=== PATIENT | male | born 1945 | race Caucasian/White ===

== ENCOUNTER 2023-03-13 08:12 | Inpatient (IN) | payer OTHER, SELFPAY ==
--- NOTE | 2023-03-13 | ECG_ITS ---
Test Reason : DYSPHGIA Blood Pressure : / mmHG Vent. Rate : 086 BPM Atrial Rate : 086 BPM P-R Int : 158 ms QRS Dur : 092 ms QT Int : 370 ms P-R-T Axes : 014 -15 025 degrees QTc Int : 442 ms Normal sinus rhythm Minimal voltage criteria for LVH, may be normal variant ( R in aVL ) Borderline ECG No previous ECGs available Referred By: Sebastián Sylvester Electronically Signed By:Huy Robledo
--- NOTE | ~2023-03-13 | FL_ITS ---
EXAMINATION: FL BARIUM SWALLOW CLINICAL INFORMATION: 2 get stuck in upper esophagus COMPARISON: Previous CT of the abdomen and pelvis from 2010 TECHNIQUE: Barium swallow examination is performed using fluoroscopic evaluation in addition to multiple fluoroscopic spot views. The patient is imaged both upright and prone and using both thick and thin sulfate along with effervescent granules. Barium tablet was also administered. Scorekeeper chest x-ray was performed. Fluoroscopy time: 1.6 minutes DAP: 20 Gycm2 Images: 58 FINDINGS: Chest: No abnormal air collection or foreign body seen. The cardiac and mediastinal contours are normal. The lungs are clear. No pleural effusion or pneumothorax. There are degenerative changes of the spine. The swallowing mechanism is normal. No aspiration or penetration is seen. The esophagus is dilated with abnormal peristalsis and stasis of oral contrast. There is a stricture of the distal thoracic esophagus/GE junction. Underlying mass cannot be excluded and correlation with endoscopy is recommended. There is stasis of the barium tablet. No gastroesophageal reflux is observed. FL/FL barium swallow IMPRESSION: Abnormal dilated esophagus and severe stricture of the distal esophagus/GE junction. Correlation with endoscopy to exclude mass recommended.
--- NOTE | ~2023-03-13 | CT_ITS ---
EXAMINATION: CT CHEST WITH CONTRAST CT ABDOMEN AND PELVIS WITH CONTRAST CLINICAL INFORMATION: Staging esophageal carcinoma. COMPARISON: CT abdomen and pelvis 11/05/2009. Barium swallow 03/13/2023. TECHNIQUE: Multidetector volumetric imaging was performed from the thoracic inlet through the pubic symphysis following administration of 85 mL of Omnipaque 350. Oral contrast media was administered. Sagittal and coronal reformatted images were obtained on the technologist's workstation. This CT examination was performed using dose optimization techniques as appropriate, variously including the following: *Automated exposure control *Adjustment of mA and/or kV according to patient size (this includes techniques or standardized protocols for targeted exams where dose is matched to indication/reason for exam; i.e. extremities or head) *Use of iterative reconstruction technique DLP: 740 mGy-cm FINDINGS: CHEST: Lung: A few tiny micronodules are seen in the lungs, for example: 2 mm right upper lobe (8:142) 2 mm right upper lobe (8:151) 3 mm right perifissural lymph node (8:244) 2 mm left upper lobe ground-glass nodule (8:272) 2 mm calcified granuloma right middle lobe (8:349) The lungs are otherwise clear without focal opacity or nodule. No evidence of pulmonary metastatic disease. Mediastinum: The esophagus is filled with fluid. There is thickening present at the GE junction consistent with a stricture seen on the barium swallow from 03/13/2023. The thyroid appears normal. No mediastinal or hilar lymphadenopathy is seen. Heart size normal. No significant coronary calcification is detected. Pericardium/Pleura: No significant effusion. No pleural mass or thickening. Chest Wall/Axilla: Unremarkable. ABDOMEN/PELVIS: Peritoneal Space: No significant free air or free fluid identified. Liver, Gallbladder, Biliary Tree: The liver is normal in size and shape but demonstrates decreased attenuation consistent with hepatic steatosis. No focal hepatic lesion or biliary ductal dilatation is present. The gallbladder contains some tiny layering gallstones but is otherwise unremarkable with no evidence of gallbladder wall thickening, or obvious pericholecystic inflammatory changes. Pancreas: Unremarkable. Spleen: Spleen is enlarged measuring 15 cm in greatest axial dimension. Adrenal Glands: Unremarkable. Kidneys and Ureters: The kidneys are normal in size, shape, and attenuation. There is a benign 3.5 cm Bosniak class 1 right renal cyst present along with a similar 2.4 cm cyst lower pole of the left kidney. These need no additional imaging or followup. No solid renal masses are seen. No hydronephrosis, hydroureter, or calculi seen. No perinephric stranding. Bladder: Unremarkable. Gastrointestinal Tract: There is a stricture seen at the GE junction and some thickening of the gastric fundus as seen on prior imaging. No bowel obstruction is seen. Dense residual barium is present throughout the colon from the patient's recent barium swallow producing marked artifact. Abdominal Wall: No significant hernia is appreciated. Lymph Nodes: There is new retroperitoneal lymphadenopathy present when compared to the prior 2009 study. The largest node is a left para-aortic measuring 3.3 x 2.5 x 3.3 cm (3:37) and aortocaval lymph node present measuring 1.2 cm in greatest short axis dimension. Evaluation is suboptimal secondary to the dense barium. Vascular: The aorta appears normal. The IVC appears unremarkable. PELVIC VISCERA: Unremarkable. OSSEUS STRUCTURES: Moderate degenerative changes are noted throughout the spine. No bony destructive lesions are seen. Small sclerotic lesion in the T5 vertebral body of questionable significance. No definite bony pathologic lesions are seen. CT/CT abdomen pelvis w IV con IMPRESSION: 1. No convincing evidence of metastatic disease in the chest. Tiny lung nodules should be followed up with oncology protocol 2. Stricture at the GE junction and thickening of the gastric fundus consistent with patient's esophageal carcinoma. 3. New retroperitoneal lymphadenopathy suspicious for metastatic disease. 4. Incidental note made of hepatic steatosis, splenomegaly, cholelithiasis and degenerative changes in the spine. Fleischner guidelines were followed.
[2023-03-13 08:17] VITALS: BP 115/82; PULSE 91; RESP 19; TEMP 36.6; O2SAT 99; BMI 29.1
--- NOTE | 2023-03-13 08:43 | ED.GENADULT ---
HPI - General Adult General Chief complaint: General Medical Stated complaint: diff swallowing weak Time Seen by Provider: 03/13/23 08:35 Source: patient Mode of arrival: ambulatory Limitations: no limitations History of Present Illness HPI narrative: Patient has had for one month difficulty swallowing. Patient with a GI appointment in 2 weeks but patient feels he cant wait. Patient with 18 lbs weight loss in one month. Patient comes in today but he cant take it anymore Onset (ago): week(s) Related Data Home Medications Medication Instructions Recorded Confirmed allopurinol 200 mg tablet 200 mg PO DAILY 03/13/23 03/13/23 metoprolol tartrate 25 mg tablet 12.5 mg PO BID 03/13/23 03/13/23 simvastatin 40 mg tablet 40 mg PO BEDTIME 03/13/23 03/13/23 Allergies Allergy/AdvReac Type Severity Reaction Status Date / Time No Known Allergies Allergy Verified 03/13/23 08:17 Review of Systems Review of Systems: Yes all other systems are reviewed and are negative Gastrointestinal: Comments: unable to swallow, 18lbs weight loss PMFSH Past Medical History Medical History History of high cholesterol Hx of essential hypertension Hx of fracture of finger Hx of gout Surgical History History of tonsillectomy and adenoidectomy Hx of arthroscopic knee surgery Hx of colonoscopy Hx of facial fracture repair Hx of foot surgery Hx of shoulder surgery Social History Social History Household Members: Spouse Housing: House Do you presently have visiting nurse or other home services: No Alcohol intake: never Patient Tobacco Use Status: Never used Tobacco service: Yes Current occupational status: retired Physical Exam ED Vital Signs: Vital Signs - 24 hr 03/13/23 08:17 03/13/23 08:45 Temperature 98 F 97.9 F Pulse Rate 91 90 Respiratory Rate 19 18 Blood Pressure 115/82 141/83 H Pulse Oximetry 99 99 Oxygen Delivery Method Room Air Room Air BMI result Body Mass Index 29.1 Const General: healthy appearing Nutritional Appearance: average body habitus Orientation/consciousness: oriented to person and patient oriented x3 Limitations: no limitations HENMT Head: Yes normal to inspection Ears: external ears normal General nose exam: Normal external nose present Mouth: Normal oral and palatal mucosa present and oropharynx normal Throat: Yes posterior oropharynx normal Eyes General: appearance normal, both eyes and all related structures Neck Neck: Yes normal visual inspection Chest Chest palpation & inspection: normal inspection of the chest Resp Auscultation: clear to auscultation bilaterally Cardio Jugular venous distension: no JVD Rate: regular rate Rhythm: regular rhythm Heart sounds: S1 normal heart sound present and S2 normal heart sound present GI Inspection: Yes normal to inspection Palpation (GI): Soft to palpation, nontender and No hepatosplenomegaly present Auscultation: normal bowel sounds General: Yes no CVA tenderness Back/Spine/Pelvis Back: no CVA tenderness Skin General skin exam: no rashes or lesions noted Neuro General: oriented to person and patient oriented x3 Cranial nerves: Yes CN's II-XII intact bilaterally Motor exam (neuro): 5/5 motor strength present throughout Extrem General: Yes normal to inspection Psych Appearance: grossly normal Course Reevaluation(s) Reevaluation #1: Barium study showed esophageal dilation and stricture vs mass at the LE junction. Discussed with Dr. Rea who wants the patient admitted Time: 13:57 Consultations Consultation #1: Dr. Rea GI Time: 13:57 Medications Administered Generic Name Dose Route Start Last Admin Trade Name Kurtq PRN Reason Stop Dose Admin Allopurinol 200 mg 03/15/23 09:00 03/15/23 08:43 Allopurinol 100 Mg Tablet PO 200 mg DAILY TYE Administration Atorvastatin Calcium 20 mg 03/14/23 21:00 03/14/23 21:10 Atorvastatin Calcium 20 Mg Tablet PO 20 mg BEDTIME TYE Administration Enoxaparin Sodium 40 mg 03/13/23 15:00 03/14/23 15:33 Enoxaparin Sodium 40 Mg/0.4 Ml Syringe SUBCUT 40 mg Q24H TYE Administration Metoprolol Tartrate 12.5 mg 03/14/23 09:00 03/15/23 08:43 Metoprolol Tartrate 12.5 Mg Halftab PO 12.5 mg BID TYE Administration Protocol Pantoprazole Sodium 40 mg 03/13/23 16:30 03/15/23 06:02 Pantoprazole Sodium 40 Mg/10 Ml Vial IVPUSH 40 mg BID@0630,1630 TYE Administration Sodium Chloride 3 ml 03/13/23 16:00 03/15/23 09:41 0.9 % Sodium Chloride Flush 3 Ml Syringe IVFLUSH Not Given QSHIFT TYE Discontinued Medications Generic Name Dose Route Start Last Admin Trade Name Tegan PRN Reason Stop Dose Admin Barium Sulfate 900 ml 03/15/23 16:43 03/15/23 16:44 Barium Sulfate Oral (Mocha) 450 Ml Oral.Susp PO 03/15/23 16:44 900 ml ONCE ONE Administration Sodium Chloride 1,000 mls @ 125 mls/hr 03/13/23 12:30 03/13/23 15:45 Ns IVCONT Infused .Q8H TYE Infusion Lactated Ringer's 1,000 mls @ 125 mls/hr 03/13/23 14:45 03/15/23 11:04 Lr IVCONT 0 mls/hr .Q8H TYE Infusion Iohexol 100 ml 03/15/23 16:44 03/15/23 16:44 Iohexol 350 Mg/Ml 100 Ml Infus..Btl IV 03/15/23 16:45 85 ml ONCE ONE Administration Medical Decision Making Differential Diagnosis Differential Diagnoses: The differential diagnosis associated with the presentation includes (Esophageal stricture, esophageal mass, esophageal reflux) Admission/Observation Consideration of admission/observation: Escalation of care including admission/observation considered (Upon arrival this 77 yo male with inability to swallow and 18 lbs weight loss was considered for admission) Consult Healthcare Provider Management of the patient was discussed with: Hospitalist Lab Data MDM Lab Attestation statement: I reviewed the patient's lab results. 03/13/23 12:43 03/13/23 12:43 Labs: Lab Results 03/13/23 03/13/23 Range/Units 12:43 12:43 WBC 5.4 (4.8-10.8) X10*3/uL RBC 4.02 L (4.60-5.80) X10*6/uL Hgb 9.7 L (14.0-18.0) g/dl Hct 31.5 L (42.0-52.0) % MCV 78.4 L (80.0-98.0) fL MCH 24.1 L (27.0-33.0) pg MCHC 30.8 L (31.0-36.0) g/dl RDW 14.8 (11.0-16.0) % Plt Count 274 (160-400) X10*3/uL MPV 11.2 (9.4-12.4) fL Immature Gran % (Auto) 0.6 H (0.0-0.4) % Neut % (Auto) 74.3 H (45-73) % Lymph % (Auto) 15.3 L (20-40) % [place] % (Auto) 8.3 (2-11) % Eos % (Auto) 1.5 (0-4) % Baso % (Auto) 0.0 (0-2) % Lymph # (Auto) 0.8 L (1.2-4.9) X10*3/uL [place] # (Auto) 0.5 (0.1-1.2) X10*3/uL Eos # (Auto) 0.1 (0.0-0.4) X10*3/uL Baso # (Auto) 0.0 (0.0-0.2) X10*3/uL Abs Immat Gran (auto) 0.03 (0.00-0.03) X10*3/uL Absolute Neuts (auto) 4.0 (2.0-8.3) x10*3/uL Absolute Nucleated RBC 0.000 (0.0-0.012) X10*3/uL Nucleated RBC % (auto) 0.0 (0.0-0.2) /100WBC Sodium 136 (135-145) mmol/L Potassium 4.6 (3.3-5.1) mmol/L Chloride 102 (96-108) mmol/L Carbon Dioxide 26 (22-29) mmol/L Anion Gap 13 (12-20) BUN 12 (9-16) mg/dL Creatinine 0.90 (0.5-1.4) mg/dL Estim Creat Clear Calc 84.4 Estimated GFR > 60 Random Glucose 115 (60-115) mg/dL Calcium 9.1 (8.4-10.2) mg/dL Total Bilirubin 0.4 (0.0-1.0) mg/dL AST 21 (5-37) U/L ALT 15 (0-40) U/L Alkaline Phosphatase 122 H (39-117) U/L Total Protein 6.5 (6.5-8.0) g/dL Albumin 3.7 (3.5-5.0) g/dL Radiology Impression Discussion of test interpretation with radiology: I have reviewed the radiologist's reading. (Barium swallow) Tests considered The following testing was considered but not selected: I considered a CT but based on the barium swallow, scoping is the next step in this workup Discharge Plan Discharge Clinical Impression: Esophageal stricture Patient Disposition: Admitted As Inpatient Interventions: Admission Worksheet (ED) Last Done: 03/13/23 16:31 Discharge Date/Time: 03/13/23 16:32
[2023-03-13 08:45] VITALS: BP 141/83; PULSE 90; RESP 18; TEMP 36.6; O2SAT 99
[2023-03-13 12:46] LABS: MANUAL DIFF FLAG NO
[2023-03-13 12:57] LABS: Eosinophils Absolute Auto 0.1 X10*3/uL (0.0-0.4); Eosinophils Percent Auto 1.5 % (0-4); Hematocrit 31.5 % (42.0-52.0); Hemoglobin 9.7 g/dl (14.0-18.0); Imm Gran Abs Auto 0.03 X10*3/uL (0.00-0.03); Imm Gran Pct Auto 0.6 % (0.0-0.4); Lymphocytes Absolute Auto 0.8 X10*3/uL (1.2-4.9); Lymphocytes Percent Auto 15.3 % (20-40); Mean Corpuscular HGB Conc 30.8 g/dl (31.0-36.0); Mean Corpuscular Hemoglobin 24.1 pg (27.0-33.0); Mean Corpuscular Volume 78.4 fL (80.0-98.0); Mean Platelet Volume 11.2 fL (9.4-12.4); Monocytes Absolute Auto 0.5 X10*3/uL (0.1-1.2); Monocytes Percent Auto 8.3 % (2-11); Neutrophils Percent Auto 74.3 % (45-73); Platelet Count 274 X10*3/uL (160-400); Red Blood Count 4.02 X10*6/uL (4.60-5.80); Red Cell Distribution Width 14.8 % (11.0-16.0); White Blood Count 5.4 X10*3/uL (4.8-10.8)
[2023-03-13 13:08] LABS: Alanine Aminotransferase 15 U/L (0-40); Albumin Level 3.7 g/dL (3.5-5.0); Alkaline Phosphatase 122 U/L (39-117); Anion Gap 13 (12-20); Aspartate Amino Transferase 21 U/L (5-37); Bilirubin Total 0.4 mg/dL (0.0-1.0); Blood Urea Nitrogen 12 mg/dL (9-16); Calcium 9.1 mg/dL (8.4-10.2); Carbon Dioxide 26 mmol/L (22-29); Chloride 102 mmol/L (96-108); Creatinine Clr Calc Pharmacy 84.4; Estimated Glomerular Filt Rate > 60; Glucose Random 115 mg/dL (60-115); Potassium 4.6 mmol/L (3.3-5.1); Sodium 136 mmol/L (135-145); Total Protein 6.5 g/dL (6.5-8.0)
[2023-03-13 13:55] VITALS: BP 121/76; PULSE 80; RESP 16; TEMP 36.6; O2SAT 98
[2023-03-13] MEDS: 0.9 % Sodium Chloride 1,000 ML 125 ML IVCONT (14:03)
--- NOTE | 2023-03-13 14:39 | PM.IMHP ---
History of Present Illness Date of Service: 03/13/23 Chief Complaint: difficulty swallowing 77-year-old male with no history of tobacco or alcohol use presents to the ER with approximately 1 month of worsening dysphagia. [facility] his issue and labs showed anemia. [facility] of the chest which by patient's recount is negative. Has an appointment with GI that is 2 weeks away; presented today because he is weak and cannot wait. Barium swallow done in the emergency room demonstrated an abnormal dilated esophagus and severe stricture of the distal esophagus/GE junction. Review of Systems Review of Systems: Denies chest pain Denies shortness of breath Denies nausea vomiting diarrhea Denies chills PMFSH Social History Smoked in Last 30 Days: No Use of substances other than those prescribed or required for medical reasons: No Advance Directives: No Advance Directives Information Provided: Yes Meds Allergies Allergy/AdvReac Type Severity Reaction Status Date / Time No Known Allergies Allergy Verified 03/13/23 08:17 Active Medications: Current Medications Enoxaparin Sodium (Enoxaparin Sodium 40 Mg/0.4 Ml Syringe) 40 mg SUBCUT Q24H TYE Lactated Ringer's (Lr) 1,000 mls @ 125 mls/hr IVCONT .Q8H TYE Pantoprazole Sodium (Pantoprazole Sodium 40 Mg/10 Ml Vial) 40 mg IVPUSH BID ONE Stop: 03/13/23 14:37 Sodium Chloride (0.9 % Sodium Chloride Flush 3 Ml Syringe) 3 ml IVFLUSH QSHIFT TYE Physical Exam Vital Signs and Narrative: Vital Signs: Last Vital Signs Temp 97.8 F 03/13/23 13:55 Pulse 80 03/13/23 13:55 Resp 16 03/13/23 13:55 BP 121/76 03/13/23 13:55 Pulse Ox 98 03/13/23 13:55 O2 Del Method Room Air 03/13/23 13:55 BMI result Body Mass Index 29.1 Const: Other: Awake alert no acute distress Resp: Other: Clear to auscultation bilaterally no rales rhonchi or wheezes Cardio: Other: No S4; positive S1-S2; no S3 murmurs rubs or gallops GI: Other: Soft nontender nondistended normoactive bowel sounds Neuro: Other: Cranial nerves 2-12 grossly intact as tested. Motor is 5/5 all extremities. Sensation intact. Cognition appropriate Extrem: Other: No edema bilaterally Results Labs 03/13/23 12:43 03/13/23 12:43 Labs: Laboratory Results - last 24 hr 03/13/23 03/13/23 12:43 12:43 MCV 78.4 L MCH 24.1 L MCHC 30.8 L RDW 14.8 Plt Count 274 MPV 11.2 Immature Gran % (Auto) 0.6 H Neut % (Auto) 74.3 H Lymph % (Auto) 15.3 L [place] % (Auto) 8.3 Eos % (Auto) 1.5 Baso % (Auto) 0.0 Lymph # (Auto) 0.8 L [place] # (Auto) 0.5 Eos # (Auto) 0.1 Baso # (Auto) 0.0 Abs Immat Gran (auto) 0.03 Absolute Neuts (auto) 4.0 Absolute Nucleated RBC 0.000 Nucleated RBC % (auto) 0.0 Anion Gap 13 Estim Creat Clear Calc 84.4 Estimated GFR > 60 Random Glucose 115 Calcium 9.1 Total Bilirubin 0.4 AST 21 ALT 15 Alkaline Phosphatase 122 H Total Protein 6.5 Albumin 3.7 Imaging Radiologist's Impressions: Impressions Barium Swallow X-Ray 03/13/23 10:51 IMPRESSION: Abnormal dilated esophagus and severe stricture of the distal esophagus/GE junction. Correlation with endoscopy to exclude mass recommended. Assessment and Plan (1) Esophageal stricture: Status: Acute Plan 77-year-old male with 1 month of progressive dysphagia. CT scan done 2 weeks ago negative for acute process. Scheduled for GI in 2-3 weeks however due to dysphagia is become severely weakened could not wait. In the Emergency Room barium swallow consistent with distal esophageal stricture 1. Distal esophageal stricture -GI notified. EGD pending 03/14/2023 -full liquid diet; NPO after midnight -PPI IV q.12 hours -supplemental IV fluids overnight Full code Lovenox Patient will require 2 midnights inpatient stay going forward for full evaluation of esophageal stricture with weight loss. This cannot be achieved a lesser acute setting Time Spent With Patient Time: Total time managing care of this patient today ____ minutes. Quality Stroke Does the patient have a stroke diagnosis?: No VTE Prior VTE?: No VTE Risk Level:: Medical - moderate - high VTE Device Contraindication: Treatment Not Indicated VTE Drug Contraindication: N/A - Med Ordered
--- NOTE | 2023-03-13 15:32 | PC.NURSE ---
pt son called and spoke with this RN. updated on pt plan of care per father's permission. left cell phone number: Uday Shi: [phone]
[2023-03-13] MEDS: Enoxaparin Sodium 40 MG/0.4 ML SYRINGE SUBCUT (15:38)
[2023-03-13 15:43] VITALS: BP 126/79; PULSE 89; RESP 16; TEMP 36.7; O2SAT 97
[2023-03-13] MEDS: Lactated Ringers 1,000 ML 125 ML IVCONT ×2 (15:43→23:36)
[2023-03-13 16:00] VITALS: BP 141/87; PULSE 95; RESP 18; TEMP 36; O2SAT 98
[2023-03-13] MEDS: Pantoprazole Sodium 40 MG/10 ML VIAL IVPUSH (16:31)
--- NOTE | 2023-03-13 18:14 | PHA.MEDREC ---
Pharmacy Consult ? Medication Reconciliation Pharmacy has completed the medication reconciliation. spoke with patient. Bryn historian when it comes to his medications. [facility] and called his to confirm meds from the bottles at home. Patient reports taking his AM meds today.
[2023-03-13 19:30] VITALS: BP 109/72; PULSE 94; RESP 18; TEMP 36.3; O2SAT 97
[2023-03-14 03:26] VITALS: BP 131/74; PULSE 81; RESP 18; TEMP 36.2; O2SAT 98
[2023-03-14] MEDS: Pantoprazole Sodium 40 MG/10 ML VIAL IVPUSH ×2 (05:37→15:33)
[2023-03-14 05:56] LABS: MANUAL DIFF FLAG NO
[2023-03-14 06:20] LABS: Alanine Aminotransferase 13 U/L (0-40); Albumin Level 3.3 g/dL (3.5-5.0); Alkaline Phosphatase 103 U/L (39-117); Anion Gap 14 (12-20); Aspartate Amino Transferase 19 U/L (5-37); Bilirubin Total 0.4 mg/dL (0.0-1.0); Blood Urea Nitrogen 10 mg/dL (9-16); Calcium 8.7 mg/dL (8.4-10.2); Carbon Dioxide 24 mmol/L (22-29); Chloride 105 mmol/L (96-108); Creatinine Clr Calc Pharmacy 91.5; Estimated Glomerular Filt Rate > 60; Glucose Fasting 99 mg/dL (60-99); Potassium 4.3 mmol/L (3.3-5.1); Sodium 139 mmol/L (135-145); Total Protein 5.6 g/dL (6.5-8.0)
[2023-03-14 06:37] LABS: Basophils Percent Auto 0.2 % (0-2); Eosinophils Absolute Auto 0.2 X10*3/uL (0.0-0.4); Eosinophils Percent Auto 3.2 % (0-4); Hematocrit 28.2 % (42.0-52.0); Hemoglobin 8.8 g/dl (14.0-18.0); Imm Gran Abs Auto 0.02 X10*3/uL (0.00-0.03); Imm Gran Pct Auto 0.4 % (0.0-0.4); Lymphocytes Absolute Auto 1.1 X10*3/uL (1.2-4.9); Lymphocytes Percent Auto 19.9 % (20-40); Mean Corpuscular HGB Conc 31.2 g/dl (31.0-36.0); Mean Corpuscular Hemoglobin 24.7 pg (27.0-33.0); Mean Corpuscular Volume 79.2 fL (80.0-98.0); Monocytes Absolute Auto 0.5 X10*3/uL (0.1-1.2); Monocytes Percent Auto 9.4 % (2-11); Neutrophils Absolute Auto 3.6 x10*3/uL (2.0-8.3); Neutrophils Percent Auto 66.9 % (45-73); Platelet Count 254 X10*3/uL (160-400); Red Blood Count 3.56 X10*6/uL (4.60-5.80); Red Cell Distribution Width 14.8 % (11.0-16.0); White Blood Count 5.3 X10*3/uL (4.8-10.8)
[2023-03-14] MEDS: Lactated Ringers 1,000 ML 125 ML IVCONT ×2 (07:26→21:11)
[2023-03-14 08:00] VITALS: BP 134/68; PULSE 95; RESP 18; TEMP 36.7; O2SAT 98
--- NOTE | 2023-03-14 08:37 | P.CNGI_ITS ---
History of Present Illness Data of Consult Service Date: 03/14/23 Requesting physician: Sebastián Sylvester Primary Care Provider: Vincent Peguero HPI Reason for consult: stricture 77 yr old m with HTN and HLP being seen for assessment for abn imaging Patient had been c/o difficulty swallowing solids but managing liquids and mashed foods for last 1 month. He denies chest pain, SOB, diarrhea, nausea or vomiting. HE said he was fine prior to this, never had any issues with GERD, not taking chronic nsaids. He has noted 17# weight loss over 1 month or so. Apperently had a CT chest recently at the [facility] which was negative. HE had a ba swallow done in the ED which revealed dilated esophagus and stricture at GEJ. LABS with anemia 9g/dl Review of Systems Review of Systems: Constitutional : + Weight loss, No Fever, No Chills ENT/Mouth : No sore throat, No Rhinorrhea Eyes: No Swelling, No Redness Cardiovascular : No Chest Pain, No SOB, No Edema Respiratory : No Cough, No Sputum, No Wheezing Gastrointestinal : see HPI Genitourinary : NO Dysuria, No Urinary Frequency, No Hematuria, No Urgency Musculoskeletal : No joint pain, No Myalgias, No Joint Swelling Skin : No Skin Lesions, No rash Neuro : No Weakness, No Numbness, No Dizziness, No Headache Psych : No Anxiety/Panic, No Depression Heme/Lymph: No Bruising, No Lymphadenopathy Endocrine : No Polyuria, No Polydipsia All other systems reviewed and are negative. [facility] Past Medical History Cognitive capacity: HTN HLP Family History Pertinent family history: no Fh of esophgeal cancer Social History Social History (Updated 03/14/23 @ 09:28 by Yunier Rea MD) Household Members: Spouse Housing: House Do you presently have visiting nurse or other home services: No Alcohol intake: never Patient Tobacco Use Status: Never used Tobacco Meds Allergies Allergy/AdvReac Type Severity Reaction Status Date / Time No Known Allergies Allergy Verified 03/13/23 08:17 Active Medications: Current Medications Enoxaparin Sodium (Enoxaparin Sodium 40 Mg/0.4 Ml Syringe) 40 mg SUBCUT Q24H [facility] Last Admin: 03/13/23 15:38 Dose: 40 mg Lactated Ringer's (Lr) 1,000 mls @ 125 mls/hr IVCONT .Q8H [facility]YE Last Admin: 03/14/23 07:26 Dose: 125 mls/hr Pantoprazole Sodium (Pantoprazole Sodium 40 Mg/10 Ml Vial) 40 mg IVPUSH BID@0630,1630 [facility] Last Admin: 03/14/23 05:37 Dose: 40 mg Sodium Chloride (0.9 % Sodium Chloride Flush 3 Ml Syringe) 3 ml IVFLUSH QSHIFT [facility] Last Admin: 03/14/23 07:27 Dose: Not Given Home Medications Medication Instructions Recorded Confirmed Last Taken Type allopurinol 200 mg tablet 200 mg PO DAILY 03/13/23 03/13/23 03/13/23 History metoprolol tartrate 25 mg tablet 12.5 mg PO BID 03/13/23 03/13/23 03/13/23 History simvastatin 40 mg tablet 40 mg PO BEDTIME 03/13/23 03/13/23 Unknown History Physical Exam 2 Vital Signs: Vital Signs: Last Vital Signs Temp 98.0 F 03/14/23 08:00 Pulse 95 03/14/23 08:00 Resp 18 03/14/23 08:00 BP 134/68 03/14/23 08:00 Pulse Ox 98 03/14/23 08:00 O2 Del Method Room Air 03/14/23 08:00 BMI result Body Mass Index 29.1 EXAM: GENERAL: The patient is well developed and nontoxic. Slightly pale VITAL SIGNS:see workflow HEENT: Nonicteric sclerae, PERRLA, EOMI. Oropharynx clear. Moist mucous membranes. Conjunctivae appear pale. No thyroid mass. CHEST: Chest wall is nontender. HEART: Regular rate and rhythm without murmurs. LUNGS: Clear to auscultation bilaterally. ABDOMEN: Soft, positive bowel sounds, nontender, no organomegaly.no flank tenderness SKIN: No rash, no excessive bruising, petechiae, or purpura. NEUROLOGIC: Cranial nerves II-XII intact without motor/sensory deficit. psych-nml affect Results Labs 03/14/23 05:17 03/14/23 05:17 Labs: Short CBC 03/13/23 03/14/23 Range/Units 12:43 05:17 WBC 5.4 5.3 (4.8-10.8) X10*3/uL Hgb 9.7 L 8.8 L (14.0-18.0) g/dl Hct 31.5 L 28.2 L (42.0-52.0) % Plt Count 274 254 (160-400) X10*3/uL BMP 03/13/23 03/14/23 12:43 05:17 Sodium 136 139 Potassium 4.6 4.3 Chloride 102 105 Carbon Dioxide 26 24 BUN 12 10 Creatinine 0.90 0.83 Calcium 9.1 8.7 Liver Function 03/13/23 03/14/23 Range/Units 12:43 05:17 Total Bilirubin 0.4 0.4 (0.0-1.0) mg/dL AST 21 19 (5-37) U/L ALT 15 13 (0-40) U/L Alkaline Phosphatase 122 H 103 (39-117) U/L Albumin 3.7 3.3 L (3.5-5.0) g/dL Imaging barium swallow: My impression: dilated esophagus and distal stricture Assessment and Plan (1) Esophageal stricture: Status: Acute (2) Anemia: Status: Acute Plan 1/ Weight loss with dysphagia to solids and abn imaging with dilated esophagus and stricture ddX: malignant stricture, benign stricture, achalasia, 2/ Anemia, maybe related to 1/ above PLAN: 1/ EGD tomorrow for assessment, 2/ mechanical soft diet for the meantime, NPO midnight Time Spent With Patient Time: Total time managing care of this patient today ____ minutes. Procedures Date of Service Date of Service: 03/14/23
[2023-03-14] MEDS: allopurinoL 100 MG TABLET 200 MG PO (10:04)
[2023-03-14] MEDS: Metoprolol Tartrate 12.5 MG HALFTAB PO ×2 (10:04→21:10)
--- NOTE | 2023-03-14 11:56 | HO.PM.IMPN ---
Subjective Subjective Date of Service: 03/14/23 Interval History: No acute issues overnight. Seen by Gastroenterology. . . EGD with possible dilation in a.m. started mechanical ground diet Review of Systems Denies chest pain Denies shortness of breath Denies nausea vomiting diarrhea Denies chills Physical Exam Vital Signs: Vital Signs: Last Vital Signs Temp 98.0 F 03/14/23 08:00 Pulse 95 03/14/23 08:00 Resp 18 03/14/23 08:00 BP 134/68 03/14/23 08:00 Pulse Ox 98 03/14/23 08:00 O2 Del Method Room Air 03/14/23 08:00 BMI result Body Mass Index 29.1 Const: Other: Awake alert no acute distress Resp: Other: Clear to auscultation bilaterally no rales rhonchi or wheezes Cardio: Other: No S4; positive S1-S2; no S3 murmurs rubs or gallops GI: Other: Soft nontender nondistended normoactive bowel sounds Neuro: Other: Cranial nerves 2-12 grossly intact as tested. Motor is 5/5 all extremities. Sensation intact. Cognition appropriate Extrem: Other: No edema bilaterally Objective Data Active Medications Allopurinol (Allopurinol 100 Mg Tablet) 200 mg PO DAILY [facility] Last Admin: 03/14/23 10:04 Dose: 200 mg Documented By: HAO Comments: admin per Atorvastatin Calcium (Atorvastatin Calcium 20 Mg Tablet) 20 mg PO BEDTIME [facility] Enoxaparin Sodium (Enoxaparin Sodium 40 Mg/0.4 Ml Syringe) 40 mg SUBCUT Q24H [facility] Last Admin: 03/13/23 15:38 Dose: 40 mg Documented By: YARY Lactated Ringer's (Lr) 1,000 mls @ 125 mls/hr IVCONT .Q8H [facility] Last Admin: 03/14/23 07:26 Dose: 125 mls/hr Documented By: HAO Metoprolol Tartrate (Metoprolol Tartrate 12.5 Mg Halftab) 12.5 mg PO BID [facility]; Protocol Last Admin: 03/14/23 10:04 Dose: 12.5 mg Documented By: HAO Pantoprazole Sodium (Pantoprazole Sodium 40 Mg/10 Ml Vial) 40 mg IVPUSH BID@0630,1630 [facility] Last Admin: 03/14/23 05:37 Dose: 40 mg Documented By: MAXINE Sodium Chloride (0.9 % Sodium Chloride Flush 3 Ml Syringe) 3 ml IVFLUSH QSHIFT [facility] Last Admin: 03/14/23 07:27 Dose: Not Given Documented By: HAO Non-Admin Reason: IV Running Labs 03/14/23 05:17 03/14/23 05:17 Labs: Laboratory Results - last 24 hr 03/13/23 03/13/23 03/14/23 12:43 12:43 05:17 MCV 78.4 L 79.2 L MCH 24.1 L 24.7 L MCHC 30.8 L 31.2 RDW 14.8 14.8 Plt Count 274 254 MPV 11.2 12.0 Immature Gran % (Auto) 0.6 H 0.4 Neut % (Auto) 74.3 H 66.9 Lymph % (Auto) 15.3 L 19.9 L [place] % (Auto) 8.3 9.4 Eos % (Auto) 1.5 3.2 Baso % (Auto) 0.0 0.2 Lymph # (Auto) 0.8 L 1.1 L [place] # (Auto) 0.5 0.5 Eos # (Auto) 0.1 0.2 Baso # (Auto) 0.0 0.0 Abs Immat Gran (auto) 0.03 0.02 Absolute Neuts (auto) 4.0 3.6 Absolute Nucleated RBC 0.000 0.000 Nucleated RBC % (auto) 0.0 0.0 Anion Gap 13 Estim Creat Clear Calc 84.4 Estimated GFR > 60 Random Glucose 115 Fasting Glucose Calcium 9.1 Total Bilirubin 0.4 AST 21 ALT 15 Alkaline Phosphatase 122 H Total Protein 6.5 Albumin 3.7 03/14/23 05:17 MCV MCH MCHC RDW Plt Count MPV Immature Gran % (Auto) Neut % (Auto) Lymph % (Auto) [place] % (Auto) Eos % (Auto) Baso % (Auto) Lymph # (Auto) [place] # (Auto) Eos # (Auto) Baso # (Auto) Abs Immat Gran (auto) Absolute Neuts (auto) Absolute Nucleated RBC Nucleated RBC % (auto) Anion Gap 14 Estim Creat Clear Calc 91.5 Estimated GFR > 60 Random Glucose Fasting Glucose 99 Calcium 8.7 Total Bilirubin 0.4 AST 19 ALT 13 Alkaline Phosphatase 103 Total Protein 5.6 L Albumin 3.3 L Assessment and Plan (1) Esophageal stricture: Status: Acute Plan 77-year-old male with 1 month of progressive dysphagia. CT scan done 2 weeks ago negative for acute process. Scheduled for GI in 2-3 weeks however due to dysphagia is become severely weakened could not wait. In the Emergency Room barium swallow consistent with distal esophageal stricture 1. Distal esophageal stricture -GI notified. EGD pending 03/15/2023 -mechanical diet; NPO after midnight -PPI IV q.12 hours -supplemental IV fluids overnight Full code Lovenox Patient will require 2 midnights inpatient stay going forward for full evaluation of esophageal stricture with weight loss. This cannot be achieved a lesser acute setting Time Spent With Patient Time: Total time managing care of this patient today ____ minutes. Quality Stroke Does the patient have a stroke diagnosis?: No VTE Prior VTE?: No VTE Risk Level:: Medical - moderate - high VTE Device Contraindication: Treatment Not Indicated VTE Drug Contraindication: N/A - Med Ordered
--- NOTE | 2023-03-14 12:59 | MHC.CM.PN ---
pt lives with his had no previous services has own ride home dc plan home no servceis
[2023-03-14 15:33] VITALS: BP 132/70; PULSE 84; RESP 18; TEMP 36.2; O2SAT 95
[2023-03-14] MEDS: 0.9 % Sodium Chloride Flush 3 ML SYRINGE IVFLUSH ×2 (15:33→21:10)
[2023-03-14] MEDS: Enoxaparin Sodium 40 MG/0.4 ML SYRINGE SUBCUT (15:33)
--- NOTE | 2023-03-14 15:45 | PC.NURSE ---
ok with pause on IV fluids until HS. Pt continues to tolerate PO fluids without issue.
[2023-03-14 19:45] VITALS: BP 122/70; PULSE 85; RESP 17; TEMP 36.1; O2SAT 97
[2023-03-14] MEDS: Atorvastatin Calcium 20 MG TABLET PO (21:10)
[2023-03-15] VITALS (8 sets, daily range): BP systolic 110–142; BP diastolic 69–84; PULSE 75–85; RESP 16–20; TEMP 36.1–37.1; O2SAT 96–100
[2023-03-15] MEDS: Lactated Ringers 1,000 ML 125 ML IVCONT (04:31)
[2023-03-15] MEDS: Pantoprazole Sodium 40 MG/10 ML VIAL IVPUSH ×2 (06:02→17:42)
[2023-03-15] MEDS: Metoprolol Tartrate 12.5 MG HALFTAB PO (08:43)
[2023-03-15] MEDS: allopurinoL 100 MG TABLET 200 MG PO (08:43)
--- NOTE | 2023-03-15 11:48 | MHC.SHP ---
Pre-Procedural Eval Section A Date of Service: 03/15/23 The patient is an INPATIENT: Yes The History & Physical has been completed within 30 days and I have reviewed it.: Yes Section B Chief Complaint: Difficulty swallowing Allergies: Allergies Allergy/AdvReac Type Severity Reaction Status Date / Time No Known Allergies Allergy Verified 03/13/23 08:17 Plan Diagnosis/Plan: Unchanged I have reviewed the history and physical and performed a pertinent physical examination on my patient. No changes have occurred unless specified. Time Spent With Patient Time: Total time managing care of this patient today ____ minutes.
--- NOTE | 2023-03-15 11:48 | P.PNIM_ITS ---
Subjective Subjective Date of Service: 03/15/23 Interval History: NPO for EGD lost 17 lb unintentionally due to dysphagia no reflux Review of Systems Review of Systems: Yes all other systems are reviewed and are negative Physical Exam Vital Signs: Vital Signs: Last Vital Signs Temp 97.3 F 03/15/23 11:07 Pulse 81 03/15/23 11:07 Resp 20 03/15/23 11:07 BP 142/84 H 03/15/23 11:07 Pulse Ox 96 03/15/23 11:07 O2 Del Method Room Air 03/15/23 11:07 BMI result Body Mass Index 29.1 Gen: in no acute distress HEENT: sclera anicteric, moist mucus membranes Neck: supple Lungs: clear to auscultation bilaterally Heart: regular rate and rhythm, no murmurs Abd: soft, non-tender, non-distended Ext: no edema Skin: warm/well-perfused Neuro: alert and oriented x3, no focal findings Psych: appropriate affect Objective Data Active Medications Allopurinol (Allopurinol 100 Mg Tablet) 200 mg PO DAILY [facility] Last Admin: 03/15/23 08:43 Dose: 200 mg Documented By: SHERITA Atorvastatin Calcium (Atorvastatin Calcium 20 Mg Tablet) 20 mg PO BEDTIME [facility] Last Admin: 03/14/23 21:10 Dose: 20 mg Documented By: BELKYS Enoxaparin Sodium (Enoxaparin Sodium 40 Mg/0.4 Ml Syringe) 40 mg SUBCUT Q24H [facility] Last Admin: 03/14/23 15:33 Dose: 40 mg Documented By: HAO Lactated Ringer's (Lr) 1,000 mls @ 125 mls/hr IVCONT .Q8H [facility] Last Infusion: 03/15/23 11:04 Dose: 0 mls/hr Documented By: SHERITA Metoprolol Tartrate (Metoprolol Tartrate 12.5 Mg Halftab) 12.5 mg PO BID [facility]; Protocol Last Admin: 03/15/23 08:43 Dose: 12.5 mg Documented By: SHERITA Pantoprazole Sodium (Pantoprazole Sodium 40 Mg/10 Ml Vial) 40 mg IVPUSH BID@0630,1630 [facility] Last Admin: 03/15/23 06:02 Dose: 40 mg Documented By: SAPNA Sodium Chloride (0.9 % Sodium Chloride Flush 3 Ml Syringe) 3 ml IVFLUSH QSHIFT [facility] Last Admin: 03/15/23 09:41 Dose: Not Given Documented By: SHERITA Non-Admin Reason: IV Running Labs 03/14/23 05:17 03/14/23 05:17 Assessment and Plan (1) Esophageal stricture: Status: Acute Plan d#3 77yo M with progressive dysphagia x 1 mo with 17 lb weight loss. Upper GI showed distal esophageal stricture # esophageal stricture # dysphagia - EGD today, NPO, IV PPI # HTN - metoprolol tartrate # HLD - statin # gout - allopurinol # VTE ppx: LMWH # dispo: TBD Time Spent With Patient Time: Total time managing care of this patient today __30__ minutes. Quality Stroke Does the patient have a stroke diagnosis?: No VTE Prior VTE?: No VTE Risk Level:: Medical - moderate - high VTE Device Contraindication: Treatment Not Indicated VTE Drug Contraindication: N/A - Med Ordered
--- NOTE | 2023-03-15 11:58 | P.CONAN_ITS ---
HPI - Anesthesia Eval Consult details Narrative: 77 yo male patient for EGD PMFSH Active Problems Active Problems: All Active Problems (Updated 03/15/23 @ 11:59 by Eladia Vuong MD) Esophageal stricture (Acute) Anemia (Acute) Denies DESIRAE Dysphagia Past Medical History Medical History History of high cholesterol Hx of essential hypertension Hx of fracture of finger Hx of gout Family History Family history of problems with anesthesia: No Surgical History Surgical History History of tonsillectomy and adenoidectomy Hx of arthroscopic knee surgery Hx of colonoscopy Hx of facial fracture repair Hx of foot surgery Hx of shoulder surgery History of Problems with Anesthesia: No Social History Social History Household Members: Spouse Housing: House Do you presently have visiting nurse or other home services: No Alcohol intake: never Patient Tobacco Use Status: Never used Tobacco service: Yes Current occupational status: retired [employer] Allergies Allergy/AdvReac Type Severity Reaction Status Date / Time No Known Allergies Allergy Verified 03/13/23 08:17 Active Medications: Current Medications Allopurinol (Allopurinol 100 Mg Tablet) 200 mg PO DAILY [facility] Last Admin: 03/15/23 08:43 Dose: 200 mg Atorvastatin Calcium (Atorvastatin Calcium 20 Mg Tablet) 20 mg PO BEDTIME [facility] Last Admin: 03/14/23 21:10 Dose: 20 mg Enoxaparin Sodium (Enoxaparin Sodium 40 Mg/0.4 Ml Syringe) 40 mg SUBCUT Q24H [facility] Last Admin: 03/14/23 15:33 Dose: 40 mg Lactated Ringer's (Lr) 1,000 mls @ 125 mls/hr IVCONT .Q8H [facility] Last Infusion: 03/15/23 11:04 Dose: 0 mls/hr Metoprolol Tartrate (Metoprolol Tartrate 12.5 Mg Halftab) 12.5 mg PO BID [facility]; Protocol Last Admin: 03/15/23 08:43 Dose: 12.5 mg Pantoprazole Sodium (Pantoprazole Sodium 40 Mg/10 Ml Vial) 40 mg IVPUSH BID@0630,1630 [facility] Last Admin: 03/15/23 06:02 Dose: 40 mg Sodium Chloride (0.9 % Sodium Chloride Flush 3 Ml Syringe) 3 ml IVFLUSH QSHIFT [facility] Last Admin: 03/15/23 09:41 Dose: Not Given Home Medications Medication Instructions Recorded Confirmed Last Taken Type allopurinol 200 mg tablet 200 mg PO DAILY 03/13/23 03/13/23 03/13/23 History metoprolol tartrate 25 mg tablet 12.5 mg PO BID 03/13/23 03/13/23 03/13/23 History simvastatin 40 mg tablet 40 mg PO BEDTIME 03/13/23 03/13/23 Unknown History Exam Exam Date and Time: March 15, 2023 1158 Height,Weight and Vital Signs: Height 6 ft Weight 97.4 kg Last Vital Signs Temp 97.3 F 03/15/23 11:07 Pulse 81 03/15/23 11:07 Resp 20 03/15/23 11:07 BP 142/84 H 03/15/23 11:07 Pulse Ox 96 03/15/23 11:07 O2 Del Method Room Air 03/15/23 11:07 Pertinent Lab Results Pertinent Lab Results: Laboratory Tests 03/13/23 03/13/23 03/14/23 12:43 12:43 05:17 WBC 5.4 5.3 RBC 4.02 L 3.56 L Hgb 9.7 L 8.8 L Hct 31.5 L 28.2 L MCV 78.4 L 79.2 L MCH 24.1 L 24.7 L MCHC 30.8 L 31.2 RDW 14.8 14.8 Plt Count 274 254 MPV 11.2 12.0 Immature Gran % (Auto) 0.6 H 0.4 Neut % (Auto) 74.3 H 66.9 Lymph % (Auto) 15.3 L 19.9 L [place] % (Auto) 8.3 9.4 Eos % (Auto) 1.5 3.2 Baso % (Auto) 0.0 0.2 Lymph # (Auto) 0.8 L 1.1 L [place] # (Auto) 0.5 0.5 Eos # (Auto) 0.1 0.2 Baso # (Auto) 0.0 0.0 Abs Immat Gran (auto) 0.03 0.02 Absolute Neuts (auto) 4.0 3.6 Absolute Nucleated RBC 0.000 0.000 Nucleated RBC % (auto) 0.0 0.0 Sodium 136 Potassium 4.6 Chloride 102 Carbon Dioxide 26 Anion Gap 13 BUN 12 Creatinine 0.90 Estim Creat Clear Calc 84.4 Estimated GFR > 60 Random Glucose 115 Fasting Glucose Calcium 9.1 Total Bilirubin 0.4 AST 21 ALT 15 Alkaline Phosphatase 122 H Total Protein 6.5 Albumin 3.7 03/14/23 05:17 WBC RBC Hgb Hct MCV MCH MCHC RDW Plt Count MPV Immature Gran % (Auto) Neut % (Auto) Lymph % (Auto) [place] % (Auto) Eos % (Auto) Baso % (Auto) Lymph # (Auto) [place] # (Auto) Eos # (Auto) Baso # (Auto) Abs Immat Gran (auto) Absolute Neuts (auto) Absolute Nucleated RBC Nucleated RBC % (auto) Sodium 139 Potassium 4.3 Chloride 105 Carbon Dioxide 24 Anion Gap 14 BUN 10 Creatinine 0.83 Estim Creat Clear Calc 91.5 Estimated GFR > 60 Random Glucose Fasting Glucose 99 Calcium 8.7 Total Bilirubin 0.4 AST 19 ALT 13 Alkaline Phosphatase 103 Total Protein 5.6 L Albumin 3.3 L Airway Mallampati Class: III TM Dist: >3cm Neck ROM: Full Partial: Upper Loose/Missing/Broken Teeth: Yes (Loose tooth top left back. Patient states not very loose but is seeing dentist?next week who has recommended extraction. Aware of possibility of dislodgement) Heart: RRR Lungs: CTAB Assessment and Plan Assessment Anesthesia Assessment: Anesthesia Plan Discussed and Chart Reviewed Final Anesthetic Review Family History of Problems with Anesthesia: No History of Problems with Anesthesia: No NPO: Yes ASA Class: III Final Preanesthetic Review: No Changes in Pt Med Stat, Meds/Allgs Chart Reviewed, Consent Obtained/Reviewed and Anes Risks/Benef Reviewed Patient Risk: Intermediate Procedure Risk: Intermediate Assessment/Block/Sedation in SS: Assess/Block/Sedation-SS Anesthetic Plan Anesthetic Plan: GA and MAC: Disposition: Standard PACU
--- NOTE | 2023-03-15 12:49 | W.PM.OPN ---
Operative Note Operative Note Date of Service: 03/15/23 Narrative: Procedure Description: EGD Indication: esophgeal stricture Anesthesia: MAC FLEXIBLE TRANSORAL UPPER GASTROINTESTINAL ENDOSCOPY UPPER ENDOSCOPY Consent: Indications for the procedure and potential complications of bleeding, perforation, reaction to medications and missed diagnosis were discussed with the patient and informed consent was obtained. Instrument: Olympus GIF H 190 J mid size upper endoscope Monitoring: Vital signs and clinical assessment, continuous EKG monitoring, Pulse oximetry, Carbon Dioxide monitoring and blood pressure monitoring were done throughout the procedure. Procedure: The patient was placed in the left lateral decubitis position and pre-procedure medications were administered and a bite block was placed. The endoscope was inserted into the mouth and advanced under direct vision to the third part of duodenum. A careful inspection was made as the upper endoscope was withdrawn including a retroflexed examination of the proximal stomach; Findings and interventions are described below. Findings: Larynx:normal Esophagus: GE junction at 40 cm, diaphragm hiatus at 40 cm, irregular, friable mass extending for about 3 cm from GEJ -bx taken. Unable to pass with regular scope so ultra thin used. Stomach: Patchy gastric erythema. Grade 2 flap valve on retroflexed examination of the cardia, edema, with possible extension of mass into the cardia Duodenum: Normal bulb and descending duodenum, Intervention: Biopsies as noted above Impression/Findings: esophageal mass, stricture PLAN: cont with soft mechanical diet refer oncology and thoracic surgery CT A/P and chest with IV contrast
--- NOTE | 2023-03-15 13:17 | P.CNHO_ITS ---
Subjective - Subjective Chief complaint: Consult for: Carcinoma of the esophagus. Patient: new to practice Consult date: 03/15/23 Requesting Physician: [place] Primary Care Provider: Vincent Peguero Medical Summary: DIAGNOSIS: CARCINOMA THE ESOPHAGUS. HPI - Consult Narrative Reason for consult: Consult for: Carcinoma of the esophagus. Narrative: Fabricio Osullivan is a 77 year old gentleman consulted by Dr. Peter, on account of upper endoscopy findings of esophageal mass. He presented to the ER on 03/13, with approximately 1 month of worsening dysphagia. It was mostly to solids. Liquids go down okay. His apetite is down, he lost 17 pounds. [facility] where labs showed anemia. CT of the chest: Negative. Presented due to generalized weakness. Barium swallow done on 03/13, in the emergency room demonstrated: Abnormal dilated esophagus and severe stricture of the distal esophagus/GE junction. Correlation with endoscopy to exclude mass recommended. 03/15 upper endoscopy: Findings: Larynx:normal Esophagus: GE junction at 40 cm, diaphragm hiatus at 40 cm, irregular, friable mass extending for about 3 cm from GEJ -bx taken. Unable to pass with regular scope so ultra thin used. Stomach: Patchy gastric erythema. Grade 2 flap valve on retroflexed examination of the cardia, edema, with possible extension of mass into the cardia Duodenum: Normal bulb and descending duodenum, Intervention: Biopsies as noted above Impression/Findings: Esophageal mass, stricture. Review of Systems Review of Systems: He denies fatigue,but takes naps, no fever/chills. Low apetite, lost 17 pounds. No LERNER/Dizziness. Denies chest pain, Denies shortness of breath Denies nausea vomiting diarrhea. Denies chills/fever. No dysuria/hematuria. No jt pains,muscle pain. No skin rashes/pruritis. PMFSH: Hypercholestrolemia. HTN. Gout. PSH: S/p knee, shoulder and foot surgery. S.p adenoidectomy/tonsillectomy. Family History: No family history of cancer. 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 He is , has 3 kids. Smoked in Last 30 Days: No. He smoked a couple of packs only, at age 21. Denies alcohol. Use of substances other than those prescribed or required for medical reasons: No Advance Directives: No Advance Directives Information Provided: Yes Review of Systems - Constitutional Reports no additional constitutional complaints, Reports anorexia, Reports fat igue, Denies fever(s), Reports lack of energy, Reports malaise, Reports weight loss - Eyes Reports no additional eye complaints - ENT Reports no additional ear, nose, mouth, and throat complaints - Cardiovascular Reports no additional cardiovascular complaints - Respiratory Reports no additional respiratory complaints - Gastrointestinal Reports no additional gastrointestinal complaints - Genitourinary Genitourinary: Reports no additional male genitourinary complaints - Musculoskeletal Reports no additional musculoskeletal complaints - Integumentary/Breasts Skin/Breast: Reports no additional skin complaints - Neurologic Reports no additional neurologic complaints - Psychiatric Reports no additional psychiatric complaints - Endocrine Reports no additional endocrine complaints - Hematologic/Lymphatic Reports no additional hematologic/lymphatic complaints - Allergic/Immunologic Reports no additional allergic/immunologic complaints Oncology Screenings - ECOG Performance Status ECOG Performance Status: 1 [facility] Medical History: Medical History (Last Reviewed 03/15/23 @ 11:59 by Elaida Vuong MD) History of high cholesterol Hx of essential hypertension Hx of fracture of finger Hx of gout Functional capacity: uses cane/walker Patient : No Surgical History: Surgical History (Last Reviewed 03/15/23 @ 11:59 by Eladia Vuong MD) History of tonsillectomy and adenoidectomy Hx of arthroscopic knee surgery Hx of colonoscopy Hx of facial fracture repair Hx of foot surgery Hx of shoulder surgery Social History: Social History (Last Reviewed 03/15/23 @ 11:59 by Eladia Vuong MD) Living Situation History: Household Members: Spouse Housing: House Do you presently have visiting nurse or other home services: No Tobacco History: Patient Tobacco Use Status: Never used Tobacco Occupation Assessmet: service: Yes Current occupational status: retired Home Medications and Allergies Current Medications: Current Medications Allopurinol (Allopurinol 100 Mg Tablet) 200 mg PO DAILY [facility] Last Admin: 03/15/23 08:43 Dose: 200 mg Atorvastatin Calcium (Atorvastatin Calcium 20 Mg Tablet) 20 mg PO BEDTIME [facility] Last Admin: 03/14/23 21:10 Dose: 20 mg Enoxaparin Sodium (Enoxaparin Sodium 40 Mg/0.4 Ml Syringe) 40 mg SUBCUT Q24H [facility] Last Admin: 03/14/23 15:33 Dose: 40 mg Lactated Ringer's (Lr) 1,000 mls @ 125 mls/hr IVCONT .Q8H [facility] Last Infusion: 03/15/23 11:04 Dose: 0 mls/hr Lactated Ringer's (Lr) 1,000 mls @ 50 mls/hr IVCONT .Q20H [facility] Metoprolol Tartrate (Metoprolol Tartrate 12.5 Mg Halftab) 12.5 mg PO BID [facility]; Protocol Last Admin: 03/15/23 08:43 Dose: 12.5 mg Ondansetron HCl (Ondansetron Hcl 4 Mg/2 Ml Vial) 4 mg IVPUSH ONCE PRN PRN Reason: Nausea and Vomiting Pantoprazole Sodium (Pantoprazole Sodium 40 Mg/10 Ml Vial) 40 mg IVPUSH BID@0630,1630 [facility] Last Admin: 03/15/23 06:02 Dose: 40 mg Sodium Chloride (0.9 % Sodium Chloride Flush 3 Ml Syringe) 3 ml IVFLUSH QSHIFT [facility] Last Admin: 03/15/23 09:41 Dose: Not Given Home Medications Medication Instructions Recorded Confirmed Type allopurinol 200 mg tablet 200 mg PO DAILY 03/13/23 03/13/23 History metoprolol tartrate 25 mg tablet 12.5 mg PO BID 03/13/23 03/13/23 History simvastatin 40 mg tablet 40 mg PO BEDTIME 03/13/23 03/13/23 History Allergies Allergy/AdvReac Type Severity Reaction Status Date / Time No Known Allergies Allergy Verified 03/13/23 08:17 Physical Exam Vital signs: Vital Signs Temp 97.3 F 03/15/23 11:07 Pulse 81 03/15/23 11:07 Resp 20 03/15/23 11:07 BP 142/84 H 03/15/23 11:07 Pulse Ox 96 03/15/23 11:07 O2 Del Method Room Air 03/15/23 11:07 Intake & Output 03/14/23 03/15/23 03/15/23 18:59 06:59 18:59 Intake Total 2385.834 / 3302.501 916.667 / 3302.501 818.75 / 818.75 Balance 2385.834 / 3302.501 916.667 / 3302.501 818.75 / 818.75 Intake: Intake, Oral Amount 540 / 540 0 / 540 Intake, IV Amount 1845.834 / 2762.501 916.667 / 2762.501 818.75 / 818.75 Lactated Ringers 1,000 ml @ 125 1845.834 / 2762.501 916.667 / 2762.501 818.75 / 818.75 mls/hr IVCONT .Q8H [facility] Rx#: [id number] Other: Meal Refused No NPO Yes Yes Lunch % Eaten 50% Dinner % Eaten 75% Number of Unmeasured Voids 2 2 Urine Bathroom Bathroom Stool Bathroom Weight 97.4 kg - Constitutional Present: moderate distress - Routine HEENT Exam Head: Present: normal inspection, normocephalic Eye: Present: normal appearance ENT: Present: mucous membranes moist - Routine Neck Exam Present: supple - Routine Respiratory Exam Present: CTAB - Routine Cardiovascular Exam Cardiovascular: Present: RRR, S1, S2 - Routine Abdominal Exam Present: soft, nontender Hem/Onc Consult Result - Labs CBC & Chem 7: 03/14/23 05:17 03/14/23 05:17 Assessment and Plan Patient Active problem list reviewed?: Yes (1) Esophageal mass Status: Acute Assessment and plan: 77 year old gentleman who presented with failure to thrive and dysphagia. CT of the chest: Negative. Presented due to generalized weakness. Barium swallow done on 03/13, in the emergency room demonstrated: Abnormal dilated esophagus and severe stricture of the distal esophagus/GE junction. Correlation with endoscopy to exclude mass recommended. 03/15 upper endoscopy: Findings: Larynx:normal Esophagus: GE junction at 40 cm, diaphragm hiatus at 40 cm, irregular, friable mass extending for about 3 cm from GEJ -bx taken. Unable to pass with regular scope so ultra thin used. Stomach: Patchy gastric erythema. Grade 2 flap valve on retroflexed examination of the cardia, edema, with possible extension of mass into the cardia Duodenum: Normal bulb and descending duodenum, Intervention: Biopsies as noted above Impression/Findings: Esophageal mass, stricture. PLAN: To proceed with further staging workup. He will have a CT chest abdomen and pelvis later today. Will check a tumor marker: CEA level. Will wait for the final pathology. Will involve thoracic surgery in the interim. He may be a candidate for combined modality therapy. Thank you for the consult, I will follow along with you, Cc: Dr. Peter. - Time Spent With Patient Time Spent with Patient (in minutes): 30
--- NOTE | 2023-03-15 14:11 | MHC.CM.PN ---
Per MD rounds no discharge today. Patient is planned for an EGD today. DP Home self care. He will arrange for transport home at discharge.
--- NOTE | 2023-03-15 15:42 | PM.DS ---
DS: Providers Provider Date of Service: 03/15/23 Date of admission: 03/13/23 14:34 Date of discharge: 03/15/23 Primary care physician: Vincent Peguero Consults: 03/13/23 14:36 Consult to Gastroenterology Routine Consulting Provider: Yunier Rea Reason for consultation: dysphagia Has provider been notified: Yes 03/15/23 12:57 Consult to Hematology / Oncology Routine Consulting Provider: [facility] Oncology/Hematology Reason for consultation: suspect esophageal CA Consult to Thoracic Surgery Routine Consulting Provider: Temo Stevenson Reason for consultation: Suspected esophageal CA DS: Diagnosis Discharge Diagnosis (1) Esophageal mass: Status: Acute DS: Summary Hospital Course Hospital Course: from admission H+P by hospitalist Sebastián Sylvester, 03/13/23: 77-year-old male with no history of tobacco or alcohol use presents to the ER with approximately 1 month of worsening dysphagia.? [facility] into his issue and labs showed anemia.? [facility] ordered CT of the chest which by patient's recount is negative.? Has an appointment with GI that is 2 weeks away; presented today because he is weak and cannot wait.? Barium swallow done in the emergency room demonstrated an abnormal dilated esophagus and severe stricture of the distal esophagus/GE junction. He was admitted to the medical-surgical floor and Gastroenterology was consulted. EGD was done on 03/15/23. There was an irregular, friable mass extending for about 3 cm from GE junction; biopsies were taken. CEA elevated at 18. Staging CT chest/A/P showed: 1. No convincing evidence of metastatic disease in the chest. Tiny lung nodules should be followed up with oncology protocol 2. Stricture at the GE junction and thickening of the gastric fundus consistent with patient's esophageal carcinoma. 3. New retroperitoneal lymphadenopathy suspicious for metastatic disease. 4. Incidental note made of hepatic steatosis, splenomegaly, cholelithiasis and degenerative changes in the spine. He will follow up with [facility] Oncology and Thoracic Surgery for pathology results and planning of treatment. In the meanwhile, he should eat smaller, more frequent soft meals. Time Spent with Patient Time attestation: Total time managing care of this patient today __35__ minutes. Discharge coordination time: Greater than 30 minutes Quality: Safe Use of Opioids Does Pt have an Active Cancer Diagnosis on the Problem List?: No Quality: Stroke Does the patient have a stroke diagnosis?: No Physical Exam Vital Signs: Vital Signs: Last Vital Signs Temp 97.2 F 03/15/23 13:35 Pulse 75 03/15/23 13:35 Resp 20 03/15/23 13:35 BP 134/79 03/15/23 13:35 Pulse Ox 98 03/15/23 13:35 O2 Del Method Room Air 03/15/23 13:35 BMI result Body Mass Index 29.1 Gen: in no acute distress HEENT: sclera anicteric, moist mucus membranes Neck: supple Lungs: clear to auscultation bilaterally Heart: regular rate and rhythm, no murmurs Abd: soft, non-tender, non-distended Ext: no edema Skin: warm/well-perfused Neuro: alert and oriented x3, no focal findings Psych: appropriate affect DS: Data Data Completed and Pending Completed studies during hospitalization [Text1]: Laboratory Results WBC 5.3 X10*3/uL (4.8-10.8) 03/14/23 05:17 RBC 3.56 X10*6/uL (4.60-5.80) L 03/14/23 05:17 Hgb 8.8 g/dl (14.0-18.0) L 03/14/23 05:17 Hct 28.2 % (42.0-52.0) L 03/14/23 05:17 MCV 79.2 fL (80.0-98.0) L 03/14/23 05:17 MCH 24.7 pg (27.0-33.0) L 03/14/23 05:17 MCHC 31.2 g/dl (31.0-36.0) 03/14/23 05:17 RDW 14.8 % (11.0-16.0) 03/14/23 05:17 Plt Count 254 X10*3/uL (160-400) 03/14/23 05:17 MPV 12.0 fL (9.4-12.4) 03/14/23 05:17 Immature Gran % (Auto) 0.4 % (0.0-0.4) 03/14/23 05:17 Neut % (Auto) 66.9 % (45-73) 03/14/23 05:17 Lymph % (Auto) 19.9 % (20-40) L 03/14/23 05:17 Turner % (Auto) 9.4 % (2-11) 03/14/23 05:17 Eos % (Auto) 3.2 % (0-4) 03/14/23 05:17 Baso % (Auto) 0.2 % (0-2) 03/14/23 05:17 Lymph # (Auto) 1.1 X10*3/uL (1.2-4.9) L 03/14/23 05:17 Turner # (Auto) 0.5 X10*3/uL (0.1-1.2) 03/14/23 05:17 Eos # (Auto) 0.2 X10*3/uL (0.0-0.4) 03/14/23 05:17 Baso # (Auto) 0.0 X10*3/uL (0.0-0.2) 03/14/23 05:17 Abs Immat Gran (auto) 0.02 X10*3/uL (0.00-0.03) 03/14/23 05:17 Absolute Neuts (auto) 3.6 x10*3/uL (2.0-8.3) 03/14/23 05:17 Absolute Nucleated RBC 0.000 X10*3/uL (0.0-0.012) 03/14/23 05:17 Nucleated RBC % (auto) 0.0 /100WBC (0.0-0.2) 03/14/23 05:17 Sodium 139 mmol/L (135-145) 03/14/23 05:17 Potassium 4.3 mmol/L (3.3-5.1) 03/14/23 05:17 Chloride 105 mmol/L (96-108) 03/14/23 05:17 Carbon Dioxide 24 mmol/L (22-29) 03/14/23 05:17 Anion Gap 14 (12-20) 03/14/23 05:17 BUN 10 mg/dL (9-16) 03/14/23 05:17 Creatinine 0.83 mg/dL (0.5-1.4) 03/14/23 05:17 Estim Creat Clear Calc 91.5 03/14/23 05:17 Estimated GFR > 60 03/14/23 05:17 Random Glucose 115 mg/dL (60-115) 03/13/23 12:43 Fasting Glucose 99 mg/dL (60-99) 03/14/23 05:17 Calcium 8.7 mg/dL (8.4-10.2) 03/14/23 05:17 Total Bilirubin 0.4 mg/dL (0.0-1.0) 03/14/23 05:17 AST 19 U/L (5-37) 03/14/23 05:17 ALT 13 U/L (0-40) 03/14/23 05:17 Alkaline Phosphatase 103 U/L (39-117) 03/14/23 05:17 Total Protein 5.6 g/dL (6.5-8.0) L 03/14/23 05:17 Albumin 3.3 g/dL (3.5-5.0) L 03/14/23 05:17 Carcinoembryonic Ag 18.00 ng/mL 03/14/23 05:17 Impressions Barium Swallow X-Ray 03/13/23 10:51 IMPRESSION: Abnormal dilated esophagus and severe stricture of the distal esophagus/GE junction. Correlation with endoscopy to exclude mass recommended. Pending studies at discharge: Pending at discharge 03/15/23 12:34 Surgical [PTH] Routine Discharge Plan Discharge Anticipated Discharge Date/Time: 03/15/23 15:41 Patient Disposition: Home, Self-Care Discharge Diagnosis: Esophageal mass, suspicious for neoplasm Referrals: Vincent Peguero [Primary Care Provider] - 1 Week Shruthi Guzman MD [Physician] - 1 Week Temo Stevenson MD [Physician] - 1 Week Discharge Medications: Continued simvastatin 40 mg Tablet 40 mg PO BEDTIME metoprolol tartrate 25 mg Tablet 12.5 mg PO BID allopurinol 200 mg Tablet 200 mg PO DAILY Discharge Orders: Discharge Order (Routine); Ordered 03/15/23 Ordered By: Luis Mlapa Diet: soft mechanical Activity on Discharge: As tolerated Stand Alone Forms: Patient Portal Discharge page Care Plan Goals: diagnosis and treatment of esophageal mass Health Concerns: Esophageal mass, suspicious for neoplasm Plan of Treatment: Frequent, small, soft meals Follow up with Elodia Guzman [Oncology] and Graham [Thoracic Surgery] in 1-2 weeks Please follow up with your primary care doctor within 1 week. Return to the hospital if you experience recurrent or worsening symptoms. Assessment: See Discharge Summary. Discharge Date/Time: 03/15/23 19:00
[2023-03-15] MEDS: iohexoL 350 MG/ML 100 ML INFUS..BTL IV (16:44)
[2023-03-15] MEDS: Barium Sulfate Oral (Mocha) 450 ML ORAL.SUSP 900 ML PO (16:44)
[2023-03-15] MEDS: Enoxaparin Sodium 40 MG/0.4 ML SYRINGE SUBCUT (17:41)
[2023-03-15] MEDS: 0.9 % Sodium Chloride Flush 3 ML SYRINGE IVFLUSH (17:41)
--- NOTE | 2023-03-16 10:19 | MHC.HEMONC ---
Tracy to book f/u with Dr Guzman in our clinic post discharge and I also made sure Dr Stevenson's office was aware that there was a Thoracic Surgery Consult ordered as well. Pt has esophageal mass.
== END 2023-03-15 19:00 | disposition home or self-care (01) | DRG 376 ==
LOC: HO.ED 14:01 → HO.EDOVER 14:38 → HO.S3 15:13
PROVIDERS: Internal Medicine Gastroenterology; Internal Medicine Medical Oncology; Admitting Provider Hospitalist; Emergency Provider Emergency Medicine; PCP Internal Medicine; Visit Provider Family Medicine
PROC: 0DJ08ZZ Inspection of Upper Intestinal Tract, Via Natural or Artificial Opening Endoscopic (ICD-10-PCS; CPT 43235; principal; 2023-03-15 11:30)
DX: C16.0 Malignant neoplasm of cardia (principal); K22.2 Esophageal obstruction; E78.00 Pure hypercholesterolemia, unspecified; I10 Essential (primary) hypertension; D63.0 Anemia in neoplastic disease; M10.9 Gout, unspecified; D64.9 Anemia, unspecified; Z79.899 Other long term (current) drug therapy
CPT/HCPCS: 36415; 71260; 74177; 74220; 80053; 82378; 85025; 88305; 88341; 88342; 88360; 93005; 99285; J1650; Q9967

== ENCOUNTER → 2023-03-26 10:04 | Outpatient (BNVA) | payer OTHER, SELFPAY | PROVIDERS: PCP Internal Medicine; Visit Provider Surgery | DX: K22.89 Other specified disease of esophagus (principal); K22.2 Esophageal obstruction; D64.9 Anemia, unspecified | CPT/HCPCS: 99202 ==

== ENCOUNTER → 2023-03-29 08:14 | Outpatient (BNV) | payer MEDICARE, SELFPAY | PROVIDERS: PCP Internal Medicine; Visit Provider Internal Medicine Medical Oncology | DX: C15.5 Malignant neoplasm of lower third of esophagus (principal) | CPT/HCPCS: 93016; 93018; 93350; 93352; 99212; 99213; 99214 ==

== ENCOUNTER 2023-03-30 13:43 | Outpatient (REF) | payer OTHER, SELFPAY | END 2023-03-30 13:44 | disposition home or self-care (01) | LOC: HO.PET 13:43 | PROVIDERS: PCP Internal Medicine; Visit Provider Surgery | DX: Z13.89 Encounter for screening for other disorder (principal) ==

== ENCOUNTER → 2023-04-12 08:16 | Outpatient (BNVA) | payer OTHER, SELFPAY | PROVIDERS: PCP Internal Medicine; Referring Provider Internal Medicine Medical Oncology; Visit Provider Surgery | DX: C15.9 Malignant neoplasm of esophagus, unspecified (principal); K22.2 Esophageal obstruction | CPT/HCPCS: 99202 ==

== ENCOUNTER 2023-04-13 10:21 | Day surgery (SDC) | payer OTHER, SELFPAY ==
[2023-04-13] VITALS (11 sets, daily range): BP systolic 125–144; BP diastolic 68–89; PULSE 84–106; RESP 16–20; TEMP 36.4–37.3; O2SAT 94–98; BMI 28.1
[2023-04-13] MEDS: Lactated Ringers 1,000 ML 100 ML IVCONT (11:05)
--- NOTE | 2023-04-13 11:21 | HO.ANESPROP2 ---
REPLACED BY [facility] Active Problems Active Problems: All Active Problems (Updated 04/13/23 @ 10:35 by Ivana Abdi RN) Esophageal stricture (Acute) Anemia (Acute) Esophageal mass (Acute) Esophageal cancer (Acute) Past Medical History Medical History Esophageal cancer History of high cholesterol Hx of essential hypertension Hx of fracture of finger Hx of gout Family History Family history of problems with anesthesia: No Surgical History Surgical History History of nasal surgery History of tonsillectomy and adenoidectomy Hx of arthroscopic knee surgery Hx of colonoscopy Hx of facial fracture repair Hx of foot surgery Hx of shoulder surgery History of Problems with Anesthesia: No Social History Social History Household Members: Spouse Housing: House Do you presently have visiting nurse or other home services: No Alcohol intake: current Alcohol intake frequency: holidays/special occasions only Alcohol type: beer Patient Tobacco Use Status: Never used Tobacco Use of substances other than those prescribed or required for medical reasons: No Are you DNR?: No Advance Directives: No Advance Directives Information Provided: Yes service: Yes Current occupational status: retired Meds Allergies Allergy/AdvReac Type Severity Reaction Status Date / Time No Known Allergies Allergy Verified 04/13/23 10:34 Active Medications: Current Medications Lactated Ringer's (Lr) 1,000 mls @ 100 mls/hr IVCONT .Q10H TYE Last Admin: 04/13/23 11:05 Dose: 100 mls/hr Home Medications Medication Instructions Recorded Confirmed Last Taken Type allopurinol 200 mg tablet 200 mg PO DAILY 03/13/23 04/13/23 03/13/23 History metoprolol tartrate 25 mg tablet 12.5 mg PO BID 03/13/23 04/13/23 03/13/23 History simvastatin 40 mg tablet 40 mg PO BEDTIME 03/13/23 04/13/23 Unknown History Exam Exam Date and Time: April 13, 2023 112 Height,Weight and Vital Signs: Height 6 ft Weight 93.894 kg Last Vital Signs Temp 97.6 F 04/13/23 10:43 Pulse 106 H 04/13/23 10:43 Resp 16 07/11/23 10:43 BP 136/75 04/13/23 10:43 Pulse Ox 96 04/13/23 10:43 O2 Del Method Room Air 04/13/23 10:43 Airway Mallampati Class: III TM Dist: >3cm Neck ROM: Full Loose/Missing/Broken Teeth: No Heart: RRR Lungs: CTA Assessment and Plan Assessment Anesthesia Assessment: Anesthesia Plan Discussed and Chart Reviewed Final Anesthetic Review Family History of Problems with Anesthesia: No History of Problems with Anesthesia: No ASA Class: III Final Preanesthetic Review: Meds/Allgs Chart Reviewed, Consent Obtained/Reviewed and Anes Risks/Benef Reviewed Patient Risk: Intermediate Procedure Risk: Low Anesthetic Plan Anesthetic Plan: MAC: Disposition: Standard PACU
--- NOTE | 2023-04-13 13:38 | P.OP_ITS ---
Operative Note Operative Note Date of Service: 04/13/23 Narrative: Preoperative diagnosis: [] Locally advanced distal esophageal cancer Postop diagnosis: [] Same Procedure [] open G-tube placement Surgeon: [] [facility] Toaster Element Repairer: [] ramírez Singh Type of Anesthesia: [] MAC Indication for surgery: [] Inability to swallow. Malnutrition. To commence radiation therapy/chemotherapy Findings: [] Patient brought to the operating room, placed on operative table in supine position, after an adequate level of MAC anesthesia was induced the upper abdomen was prepped and draped in usual sterile fashion. Upper midline site of incision was infiltrated with 0.5% Marcaine/1% lidocaine and a small upper midline incision made carried down through skin, subcutaneous tissue, down to the linea alba. This was opened along with posterior fascia and peritoneum. Abdominal cavity entered and the stomach identified and brought to the field using [place] clamps. Two pursestring sutures starting at opposite starting points of 2-0 silk were placed on the anterior mid stomach. Through a separate left upper quadrant stab wound incision, a 22 Kiswahili Swartz catheter 5 cc balloon feeding tube was entered into the abdominal cavity. A gastrotomy was made in the center of the 2 pursestring sutures using Bovie and the feeding tube advanced into the distal stomach. Approximately 2 cc of air was insufflated to the balloon. Inner followed by outer pursestring sutures were then tied. The stomach was then pexed to the anterior abdominal wall using multiple seromuscular to peritoneal interrupted 2-0 silk sutures. G-tube was secured to the skin using 2-0 nylon suture. G-tube was irrigated where saline easily entered and gastric contents were easily retrieved. G-tube was then capped at its end. Abdominal cavity was irrigated, secured hemostasis, and closed in the following manner; fascia was closed using running 0 Maxon suture. Interrupted inverted deep dermal 3-0 Vicryl sutures followed by running subcuticular 4-0 Vicryl sutures were placed. Steri-Strips and sterile dressings were applied. EBL minimal. Patient tolerated procedure well and emerged from anesthesia stable condition.
[2023-04-13] MEDS: fentaNYL citrate/PF 100 MCG/2 ML VIAL 25 MCG IVPUSH ×4 (13:43→13:58)
[2023-04-13] MEDS: oxyCODONE HCl Immed Release 5 MG TABLET PO (13:48)
[2023-04-13] MEDS: HYDROmorphone HCl 0.5 MG/0.5 ML SYRINGE 0.25 MG IVPUSH ×2 (14:08→14:13)
[2023-04-13] MEDS: Acetaminophen 325 MG TABLET 650 MG PO (14:08)
== END 2023-04-13 15:43 | disposition home or self-care (01) ==
PROVIDERS: PCP Internal Medicine; Visit Provider Surgery
PROC: (CPT 43830; principal; 2023-04-13 12:00)
DX: C15.9 Malignant neoplasm of esophagus, unspecified (principal); R13.0 Aphagia; E46 Unspecified protein-calorie malnutrition; I10 Essential (primary) hypertension
CPT/HCPCS: 43830; J0690; J1170; J2250; J3010

== ENCOUNTER → 2023-04-13 10:21 | Outpatient (BNV) | payer OTHER, MEDICARE, SELFPAY | PROVIDERS: PCP Internal Medicine; Visit Provider Surgery | DX: C15.9 Malignant neoplasm of esophagus, unspecified (principal) | CPT/HCPCS: 43830 ==

== ENCOUNTER 2023-04-16 11:02 | Outpatient (AMB) | payer MEDICARE, SELFPAY ==
[2023-04-16 11:10] VITALS: BP 115/66; PULSE 101
--- NOTE | 2023-04-16 11:10 | A.OFFVIS_ITS ---
Intake Vital Signs 04/16/23 11:10 Weight 197 lb BP 115/66 Blood Pressure Location Rt brachial Position Sitting Pulse 101 H Intake Visit Reasons: S/P G-tube placement Intake Note: Patient here s/p G-tube placement. Patient seen by collision repairer Charlene @ [facility]. They were unable to start feeding yesterday. Patient states G-tube requires attachment. Recording Studio Intern Required: No Accompanied by: Spouse Allergies No Known Allergies Allergy (Verified 04/16/23 11:12) HPI HPI Comments History of Present Illness Details Patient presents with his for follow-up status post open G-tube placement. His nurse was unable to flush the tube. Presents here for eval uation. [facility] Medical History Esophageal cancer History of high cholesterol Hx of essential hypertension Hx of fracture of finger Hx of gout Surgical History History of nasal surgery History of tonsillectomy and adenoidectomy Hx of arthroscopic knee surgery Hx of colonoscopy Hx of facial fracture repair Hx of foot surgery Hx of shoulder surgery Social History Household Members: Spouse Housing: House Do you presently have visiting nurse or other home services: No Alcohol intake: current Alcohol intake frequency: holidays/special occasions only Alcohol type: beer Patient Tobacco Use Status: Never used Tobacco service: Yes Current occupational status: retired Physical Exam Vital Signs: Last Vital Signs Pulse 101 H 04/16/23 11:10 BP 115/66 04/16/23 11:10 GI Other: Incision is well healed. G-tube had the entire plug removed and the G2 was flushed uneventfully with easy antegrade and retrograde flow. Assessment & Plan Assessment & Plan (1) Esophageal cancer: Code(s): C15.9 - Malignant neoplasm of esophagus, unspecified Plan Patient and his were provided with a Basco tree adapter for feeds. The entire blue plug needs to be removed for feeds. Have been given local wound instructions, and will follow-up p.r.n. Coding Level of Care Code Global (18782) Diagnoses Esophageal cancer C15.9
== END 2023-04-16 11:30 | disposition home or self-care (01) ==
PROVIDERS: PCP Internal Medicine; Visit Provider Surgery
DX: C15.9 Malignant neoplasm of esophagus, unspecified (principal)
CPT/HCPCS: 99024

== ENCOUNTER → 2023-04-16 11:02 | Outpatient (BNVA) | payer OTHER, SELFPAY | PROVIDERS: PCP Internal Medicine; Visit Provider Surgery ==

== ENCOUNTER 2023-07-13 13:35 | Outpatient (REF) | payer OTHER, SELFPAY ==
--- NOTE | ~2023-07-13 | CT_ITS ---
EXAMINATION: CT CHEST WITH CONTRAST CLINICAL INFORMATION: Follow up esophageal cancer. COMPARISON: CT chest 03/15/2023 and PET/CT 03/30/2023. TECHNIQUE: Multidetector volumetric CT imaging of the chest was obtained after the administration of 65 mL of Omnipaque 350 intravenous contrast without immediate adverse reactions. Axial MIP volume rendering provided. Sagittal and coronal reformatted images were obtained. This CT examination was performed using dose optimization techniques as appropriate, variously including the following: *Automated exposure control *Adjustment of mA and/or kV according to patient size (this includes techniques or standardized protocols for targeted exams where dose is matched to indication/reason for exam; i.e. extremities or head) *Use of iterative reconstruction technique DLP: 163 mGy-cm FINDINGS: KNITTER MACHINE: Unremarkable. LUNGS: The lungs are well expanded with a few micronodules visualized again, 2 mm right upper lobe (axial image 69/6), left lower lobe 109/6. Previous CT visualized micronodules are not well visualized at this time. 2 mm calcified granuloma right middle lobe (axial image 155/6) is stable. Focal atelectasis in both lung bases is noted. No new nodules, mass or consolidation. MEDIASTINUM: Thyroid lobes are symmetrical and normal. The central trachea and the bronchi are widely patent. There are small shotty lymph nodes in the mediastinum. The heart size and the great vessels are normal caliber. No coronary artery calcifications are visualized. No pericardial effusion. PLEURA: There is no pleural effusion. No pleural mass or thickening. AXILLA: No lymphadenopathy. UPPER ABDOMEN: Visualized liver, spleen, pancreas and bilateral adrenal glands are unremarkable. Punctate radiopaque layering gallstone is unchanged. Thickening along the gastroesophageal junction has improved. No solid food or liquid was seen retained in the esophagus at this time. No abnormal-sized lymph nodes were seen in the posterior mediastinum or at the gastroesophageal junction. OSSEOUS STRUCTURES: Moderate ventral spondylosis throughout the mid and lower dorsal spine. No aggressive lytic or sclerotic process. CT/CT chest w IV con IMPRESSION: 1. Stable micronodules and calcified granuloma. No new nodules seen. 2. No abnormal mediastinal or axillary lymphadenopathy. 3. Thickening along the gastroesophageal junction has resolved. Fleischner guidelines were followed.
== END 2023-07-13 13:36 | disposition home or self-care (01) ==
LOC: HO.CT 13:35
PROVIDERS: PCP Internal Medicine; Visit Provider Internal Medicine Medical Oncology
DX: C15.9 Malignant neoplasm of esophagus, unspecified (principal)
CPT/HCPCS: 71260; Q9967

== ENCOUNTER 2023-07-19 16:01 | Outpatient (AMB) | payer OTHER, SELFPAY ==
--- NOTE | 2023-07-19 16:08 | A.OFFVIS_ITS ---
Intake Vital Signs 07/19/23 16:11 Weight 191 lb 12.835 oz Intake Visit Reasons: G-tube dislodged, remove Intake Note: This patient presents for an assessment for dislodged G-tube. Patient c/o; reports has not been using the G-tube for past few weeks, will like it removed. Microbiological Analyst Required: No Accompanied by: Self / Same As Patient Allergies No Known Allergies Allergy (Verified 07/19/23 16:12) HPI G-tube dislodged, remove HPI Details He was referred to the office because of his G-tube. This was done as an open procedure by Dr. Stevenson in April, for his esophageal cancer with dysphagia. The patient had been undergoing treatment with radiation and chemotherapy with carboplatin and Taxol. He says that he has been tolerating regular diet for 2-3 weeks now. He denies any dysphagia. He had told Dr. Guzman of Oncology at that he wanted his G-tube removed. He also says that this had been dislodged on his way here to the office this afternoon. [facility] Medical History Esophageal cancer Hx of fracture of finger Hx of gout History of high cholesterol Hx of essential hypertension Surgical History History of nasal surgery History of tonsillectomy and adenoidectomy Hx of facial fracture repair Hx of shoulder surgery Hx of foot surgery Hx of colonoscopy Hx of arthroscopic knee surgery Social History Household Members: Spouse Housing: House Do you presently have visiting nurse or other home services: No Alcohol intake: current Alcohol intake frequency: holidays/special occasions only Alcohol type: beer Patient Tobacco Use Status: Never used Tobacco service: Yes Current occupational status: retired Review of Systems Const Denies chills and Denies fever(s) Card Denies chest pain Resp Denies cough GI Denies abdominal pain Denies difficulty urinating Physical Exam Const General: comfortable and no acute distress Resp Effort & Inspection: normal respiratory effort Cardio Rate: regular rate GI Other: G-tube is actually out, with the G-tube sinus pain on the left upper quadrant Palpation (GI): Soft to palpation, not firm, nontender and no guarding Assessment & Plan Assessment & Plan (1) Gastrojejunostomy tube dislodgement: Code(s): T85.528A - Displacement of other gastrointestinal prosthetic devices, implants and grafts, initial encounter Plan: He had insisted on having his G-tube removed so he was referred by Dr. Guzman to the office. He states that he has had good oral intake and he denies any dysphagia for 2-3 weeks now When he saw me in the office today, his G-tube was actually already out. I therefore applied dressings on his G-tube site. I did explain to him that there is always a small chance that he will require the G-tube reinserted if he develops dysphagia again from his esophageal cancer. He says he understands this. He is also aware that if needs the G-tube down the line, he may need to undergo surgery again to have this done if the G-tube site closes completely. Coding Level of Care Code Est Pt Level 2 (63988) Diagnoses Gastrojejunostomy tube dislodgement T85.528A
== END 2023-07-19 16:26 | disposition home or self-care (01) ==
PROVIDERS: PCP Internal Medicine; Visit Provider Surgery
DX: T85.528A Displacement of other gastrointestinal prosthetic devices, implants and grafts, initial encounter (principal)
CPT/HCPCS: 99213

== ENCOUNTER 2023-07-22 | Outpatient (REF) | payer OTHER, SELFPAY | END 2023-07-22 00:01 | disposition home or self-care (01) | LOC: HO.PAT | PROVIDERS: Visit Provider Surgery | DX: T85.528A Displacement of other gastrointestinal prosthetic devices, implants and grafts, initial encounter (principal) | CPT/HCPCS: 99212 ==

== ENCOUNTER 2023-11-16 08:57 | Outpatient (REF) | payer OTHER, SELFPAY ==
--- NOTE | ~2023-11-16 | CT_ITS ---
EXAMINATION: CT CHEST WITH CONTRAST CLINICAL INFORMATION: History of esophageal cancer. COMPARISON: 07/13/2023 TECHNIQUE: Multidetector volumetric CT imaging of the chest was obtained after the administration of 65 mL of Omnipaque 350 intravenous contrast without immediate adverse reactions. Axial MIP volume rendering provided. Sagittal and coronal reformatted images were obtained. This CT examination was performed using dose optimization techniques as appropriate, variously including the following: *Automated exposure control *Adjustment of mA and/or kV according to patient size (this includes techniques or standardized protocols for targeted exams where dose is matched to indication/reason for exam; i.e. extremities or head) *Use of iterative reconstruction technique DLP: 146 mGy-cm FINDINGS: LUNGS: No suspicious pulmonary nodule. No focal consolidation. Central airways are patent. MEDIASTINUM: Multiple subcentimeter mediastinal lymph nodes have increased in size. No axillary or hilar lymphadenopathy. Great vessels are of normal caliber. Heart size is normal. Small pericardial effusion. Moderate coronary artery calcifications. PLEURA: No pleural effusion. UPPER ABDOMEN: No adrenal mass. OSSEOUS STRUCTURES: Possible right shoulder bursitis. CT/CT chest w IV con IMPRESSION: New peribronchial consolidation in the left lower lobe, lingula and to a lesser extent in the right lower lobe. Infectious or inflammatory etiologies may be considered. Advise clinical correlation and short interval follow-up imaging. Increasing mediastinal lymphadenopathy compared with 07/13/2023. Possible right shoulder bursitis.
[2023-11-16] MEDS: iohexoL 350 MG/ML 100 ML INFUS..BTL IV (10:06)
== END 2023-11-16 08:58 | disposition home or self-care (01) ==
LOC: HO.CT 08:57
PROVIDERS: PCP Internal Medicine; Visit Provider Internal Medicine Medical Oncology
DX: C15.9 Malignant neoplasm of esophagus, unspecified (principal)
CPT/HCPCS: 71260; Q9967

== ENCOUNTER 2023-12-16 10:50 | Outpatient (AMB) | payer OTHER, SELFPAY ==
[2023-12-16 11:02] VITALS: BP 110/60; PULSE 92; O2SAT 96; BMI 26.0
--- NOTE | 2023-12-16 11:02 | MHC.OFFVIS ---
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 The patient is a 78-year-old gentleman presenting with abnormal CT scan of the chest. The patient was diagnosed with esophageal cancer during endoscopy was found to have an obstruction due to a masslike density. The patient was then referred to Oncology where he received chemo and also radiation. Now on immune therapy. The patient did not have surgery for the esophageal cancer. He still being followed by thoracic surgery. In the meantime he had a CT scan of the chest back in July 2023 which I personally reviewed demonstrating normal lung parenchyma. No evidence of any airspace disease. Patient ultimately had a repeat CT scan of the chest November 16 2023 which I also personally reviewed. Now it demonstrates what appears to be an airspace disease in the left lower lobe area. The area is very suspicious for an infectious process. He also has some mediastinal lymphadenopathy appreciated. In addition to that there was a 6 mm pulmonary nodule in the right lower lobe. The patient was treated with Augmentin and also doxycycline. The patient really was not symptomatic. Currently he feels well. Denies any chest pain or cough or shortness breath. We did talk about the findings in the importance of following up with a repeat CT scan to make sure that there is resolution of the airspace disease and also to make sure the nodular density is also followed. The patient is agreeable to having another CT scan in the next 6 weeks. If the patient has any worsening symptoms prior to that he will call for an earlier assessment. [facility] Medical History (Updated 12/16/23 @ 12:26 by Dale Beach MD) Pneumonia Pulmonary nodule Esophageal cancer Hx of fracture of finger Hx of gout History of high cholesterol Hx of essential hypertension Surgical History (Updated 12/16/23 @ 12:26 by Dale Beach MD) History of nasal surgery History of tonsillectomy and adenoidectomy Hx of facial fracture repair Hx of shoulder surgery Hx of foot surgery Hx of colonoscopy Hx of arthroscopic knee surgery Social History Household Members: Spouse Housing: House Do you presently have visiting nurse or other home services: No Alcohol intake: current Alcohol intake frequency: holidays/special occasions only Alcohol type: beer Patient Tobacco Use Status: Never used Tobacco service: Yes Current occupational status: retired Review of Systems Const Denies fever(s) ENT Denies nasal congestion Card Denies chest pain Resp Denies cough and Denies wheezing GI Reports as per HPI Musc Reports no additional complaints Skin/Breast Denies rash Neuro Reports no additional complaints Aller/Immun Denies wheezing Physical Exam Vital Signs: Last Vital Signs Pulse 92 12/16/23 11:02 BP 110/60 12/16/23 11:02 Pulse Ox 96 12/16/23 11:02 Oxygen Delivery Method Room Air 12/16/23 11:02 BMI result Body Mass Index 26.0 Const General: comfortable HEENT Head: Yes normocephalic Neck Neck: Yes supple Chest Chest palpation & inspection: normal inspection of the chest Resp Effort & Inspection: normal respiratory effort Auscultation: clear to auscultation bilaterally Cardio Heart sounds: S1 normal heart sound present and S2 normal heart sound present GI Palpation (GI): Soft to palpation Skin General skin exam: no rashes or lesions noted Extrem General: Yes no clubbing, cyanosis or edema Assessment & Plan Assessment & Plan (1) Pneumonia: Code(s): J18.9 - Pneumonia, unspecified organism Qualifiers: Laterality: left Lung location: lower lobe of lung Pneumonia type: due to unspecified organism Qualified Code(s): J18.9 - Pneumonia, unspecified organism (2) Pulmonary nodule: Code(s): R91.1 - Solitary pulmonary nodule (3) Esophageal cancer: Code(s): C15.9 - Malignant neoplasm of esophagus, unspecified Qualifiers: Malignant neoplasm of esophagus location: unspecified location Qualified Code(s): C15.9 - Malignant neoplasm of esophagus, unspecified Plan completed Abx repeat CT chest in 6 weeks F/U after CT Orders: Orders CT chest wo IV con 02/02/24 J18.9 - Pneumonia, unspecified organism, R91.1 - Solitary pulmonary nodule Coding Level of Care Code New Pt Level 4 (89903) Diagnoses Pneumonia of left lower lobe due to infectious organism J18.9 Laterality: left Lung location: lower lobe of lung Pneumonia type: due to unspecified organism Pulmonary nodule R91.1 Malignant neoplasm of esophagus, unspecified location C15.9 Malignant neoplasm of esophagus location: unspecified location Time Spent (min) 40
== END 2023-12-16 11:57 | disposition home or self-care (01) ==
PROVIDERS: PCP Internal Medicine; Referring Provider Hospitalist; Visit Provider Hospitalist
DX: J18.9 Pneumonia, unspecified organism (principal); R91.1 Solitary pulmonary nodule; C15.9 Malignant neoplasm of esophagus, unspecified
CPT/HCPCS: 99204

== ENCOUNTER → 2023-12-16 10:50 | Outpatient (BNVA) | payer OTHER, SELFPAY | PROVIDERS: PCP Internal Medicine; Visit Provider Hospitalist | DX: J18.9 Pneumonia, unspecified organism (principal); R91.1 Solitary pulmonary nodule; C15.9 Malignant neoplasm of esophagus, unspecified | CPT/HCPCS: 99202 ==

== ENCOUNTER 2024-03-06 08:52 | Outpatient (REF) | payer OTHER, SELFPAY ==
--- NOTE | ~2024-03-06 | CT_ITS ---
EXAMINATION: CT CHEST WITH CONTRAST CLINICAL INFORMATION: Follow-up on lung infiltrates, mass in esophagus. COMPARISON: CT chest 11/16/2023. TECHNIQUE: Multidetector volumetric CT imaging of the chest was obtained after the administration of 50 mL of Omnipaque 350 intravenous contrast without immediate adverse reactions. Axial MIP volume rendering provided. Sagittal and coronal reformatted images were obtained. This CT examination was performed using dose optimization techniques as appropriate, variously including the following: *Automated exposure control *Adjustment of mA and/or kV according to patient size (this includes techniques or standardized protocols for targeted exams where dose is matched to indication/reason for exam; i.e. extremities or head) *Use of iterative reconstruction technique DLP: 165 mGy-cm FINDINGS: LUNGS: The previously seen left lower lobe branching consolidation with similar lingular changes have resolved. There was also a 7 mm right lower lobe nodule (prior 7:152), which has resolved. There are moderately extensive new areas of consolidation present in the left upper lobe along the major fissure, in the right upper lobe along the major fissure and in the posterior middle lobe as well as in the anterobasal segment of the right lower lobe. In addition to these areas of consolidation, there are at least 20 new ground-glass nodules seen ranging in size from about 0.5 cm to larger areas measuring 1.7 cm. Many of these have a small amount of air centrally. See saved helton images. MEDIASTINUM: There is further enlargement of mediastinal lymph nodes which can now be considered adenopathy. For example, there is a right paratracheal node that had measured 0.8 cm in short-axis dimension that now measures 1.6 cm (3:24 compare prior 3:22). There are also preaortic, and AP window lymph nodes which have also significantly increased in size. No definite esophageal mass is seen. No significant coronary calcium PLEURA: There is no pleural effusion. No pleural mass or thickening. AXILLA: No lymphadenopathy. UPPER ABDOMEN: Unremarkable. OSSEOUS STRUCTURES: Degenerative changes are present throughout the spine. CT/CT chest w IV con IMPRESSION: 1. Previously seen areas of consolidation have resolved. 2. There are new areas of consolidation present in both lungs as well as multiple new groundglass nodules. Findings are most suggestive of an infectious process. Metastatic disease would also be a possibility. I believe there is a need for tissue diagnosis in this case and pulmonary consultation is recommended. 3. There is further enlargement of mediastinal lymph nodes which can now be considered adenopathy. 4. No definite esophageal mass is seen. This critical result was discussed with Shruthi Guzman MD at 8:27 AM on 03/28/2024 and it was ascertained that the content and urgency of the report was understood at the time of direct communication.
[2024-03-06] MEDS: iohexoL 350 MG/ML 75 ML INFUS..BTL 65 ML IV (09:35)
== END 2024-03-06 08:53 | disposition home or self-care (01) ==
LOC: HO.CT 08:52
PROVIDERS: PCP Internal Medicine; Visit Provider Internal Medicine Medical Oncology
DX: K22.89 Other specified disease of esophagus (principal)
CPT/HCPCS: 71260; Q9967

== ENCOUNTER 2024-05-16 15:57 | Outpatient (REF) | payer OTHER, SELFPAY ==
--- NOTE | ~2024-05-16 | MR_ITS ---
EXAMINATION: MR BRAIN WITH AND WITHOUT CONTRAST CLINICAL INFORMATION: Confusion, memory loss COMPARISON: None. TECHNIQUE: MRI of the brain was obtained using routine sequences before and following administration of intravenous contrast. A total of 8 mL of Gadavist was administered intravenously. FINDINGS: No acute infarct. The GRE sequence is without susceptibility artifact to suggest acute or chronic blood products. No extra-axial fluid collection. Moderate global cerebral volume loss. Asymmetric prominence of the left lateral ventricle may reflect slight asymmetric left hemispheric atrophy. Patchy T2 FLAIR hyperintense foci in the subcortical and periventricular white matter, nonspecific but presumably mild chronic microangiopathy. Chronic lacunar infarcts within the left centrum semiovale and left cerebellum. No abnormal intraparenchymal or leptomeningeal enhancement. No significant mass effect or herniation pattern. The intracranial dural venous sinus and arterial flow voids are preserved. Kahlil cisterna magna. The orbits are grossly unremarkable. The paranasal sinuses and mastoids are well aerated. Partially imaged is cervical spondylosis. MR/MR head/brain wo/w con IMPRESSION: 1. No acute intracranial abnormality. No pathologic intracranial enhancement. 2. Moderate global cerebral volume loss. Mild chronic microangiopathy. Chronic lacunar infarcts within the left centrum semiovale and left cerebellum. Electronically signed by: Francine Lu MD 06/01/2024 11:58 AM EDT
[2024-05-16] MEDS: gadobutroL 10 ML VIAL IVPUSH (17:14)
== END 2024-05-16 15:58 | disposition home or self-care (01) ==
LOC: HO.MRI 15:57
PROVIDERS: PCP Internal Medicine; Visit Provider Internal Medicine Medical Oncology
DX: C15.9 Malignant neoplasm of esophagus, unspecified (principal)
CPT/HCPCS: 70553; A9585

== ENCOUNTER 2024-06-15 08:52 | Outpatient (AMB) | payer OTHER, SELFPAY ==
[2024-06-15 08:57] VITALS: BP 110/60; PULSE 91; O2SAT 95; BMI 24.5
--- NOTE | 2024-06-15 08:57 | A.OFFVIS_ITS ---
Vital Signs 06/15/24 08:57 Height 6 ft Weight 180 lb 12.465 oz BMI 24.5 BP 110/60 Blood Pressure Location Lt brachial Position Sitting Pulse 91 Pulse Source Pulse Oximeter Pulse Oximetry (%) 95 Oxygen Delivery Method Room Air Intake Visit Reasons: Pulmonary nodule/CT Chest Follow Up Certified Nurse Operating Room Required: No Allergies No Known Allergies Allergy (Verified 06/15/24 08:59) HPI Comments Details: The patient is a 79-year-old gentleman presenting with abnormal CT scan of the chest. The patient was diagnosed with esophageal cancer during endoscopy was found to have an obstruction due to a masslike density. The patient was then referred to Oncology where he received chemo and also radiation. Now on immune therapy. The patient did not have surgery for the esophageal cancer. He still being followed by thoracic surgery. In the meantime he had a CT scan of the chest back in July 2023 which I personally reviewed demonstrating normal lung parenchyma. No evidence of any airspace disease. Patient ultimately had a repeat CT scan of the chest November 16 2023 which I also personally reviewed. Now it demonstrates what appears to be an airspace disease in the left lower lobe area. The area is very suspicious for an infectious process. He also has some mediastinal lymphadenopathy appreciated. In addition to that there was a 6 mm pulmonary nodule in the right lower lobe. The patient was treated with Augmentin and also doxycycline. The patient really was not symptomatic. Cur rently he feels well. Denies any chest pain or cough or shortness breath. We did talk about the findings in the importance of following up with a repeat CT scan to make sure that there is resolution of the airspace disease and also to make sure the nodular density is also followed. The patient is agreeable to having another CT scan in the next 6 weeks. If the patient has any worsening symptoms prior to that he will call for an earlier assessment. 06/15/2024 the patient is here for a pulmonary follow-up visit. The patient has been feeling well from a respiratory status. He did have a CT scan back in 03/23/2024 which I personally reviewed with him. Was concerning with new areas of consolidation and ground-glass nodular densities. The patient had did have a left lower lobe consolidation that had clear. We did recommend bronchoscopy but the patient opted not to have it. Also to note the lymphadenopathy has gotten a little bit worse on the CT scan. The patient continues on immune therapy. He understands the indeed these changes may indeed be related to the immune therapy as inflammatory reactions. He is willing to start Asmanex as an inhaled corticosteroid. I did tell him as small dose just to help him with his lungs and minimize any systemic manifestations. The patient will continue with his current immune therapy in the meantime. Will plan to continue on the inhaler for a couple months and plan to repeat the CT scan a couple months. If the patient develops any worsening symptoms prior to that he will call for an earlier on suctioning. [facility] Medical History (Updated 06/15/24 @ 10:07 by Dale Beach MD) Lymphadenopathy, mediastinal Pneumonia Pulmonary nodule Esophageal cancer Hx of fracture of finger Hx of gout History of high cholesterol Hx of essential hypertension Surgical History (Updated 12/16/23 @ 12:26 by Dale Beach MD) History of nasal surgery History of tonsillectomy and adenoidectomy Hx of facial fracture repair Hx of shoulder surgery Hx of foot surgery Hx of colonoscopy Hx of arthroscopic knee surgery Social History Household Members: Spouse Housing: House Do you presently have visiting nurse or other home services: No Alcohol intake: current Alcohol intake frequency: holidays/special occasions only Alcohol type: beer Patient Tobacco Use Status: Never used Tobacco service: Yes Current occupational status: retired Review of Systems Const Denies fever(s) Eyes Reports as per HPI ENT Denies nasal congestion Card Denies chest pain Resp Denies cough and Denies wheezing GI Reports as per HPI Musc Reports no additional complaints Skin/Breast Denies rash Neuro Reports no additional complaints Aller/Immun Denies wheezing Physical Exam Vital Signs: Last Vital Signs Pulse 91 06/15/24 08:57 BP 110/60 06/15/24 08:57 Pulse Ox 95 06/15/24 08:57 Oxygen Delivery Method Room Air 06/15/24 08:57 BMI result Body Mass Index 24.5 Const General: comfortable HEENT Head: Yes normocephalic Neck Neck: Yes supple Chest Chest palpation & inspection: normal inspection of the chest Resp Effort & Inspection: normal respiratory effort Auscultation: crackles and diminished lung sounds Cardio Heart sounds: S1 normal heart sound present and S2 normal heart sound present GI Palpation (GI): Soft to palpation Skin General skin exam: no rashes or lesions noted Extrem General: Yes no clubbing, cyanosis or edema Assessment & Plan Assessment & Plan (1) Pneumonia: Code(s): J18.9 - Pneumonia, unspecified organism Category: Medical Qualifiers: Laterality: left Lung location: lower lobe of lung Pneumonia type: due to unspecified organism Qualified Code(s): J18.9 - Pneumonia, unspecified organism (2) Pulmonary nodule: Code(s): R91.1 - Solitary pulmonary nodule Category: Medical (3) Esophageal cancer: Code(s): C15.9 - Malignant neoplasm of esophagus, unspecified Category: Surgical Qualifiers: Malignant neoplasm of esophagus location: unspecified location Qualified Code(s): C15.9 - Malignant neoplasm of esophagus, unspecified (4) Lymphadenopathy, mediastinal: Code(s): R59.0 - Localized enlarged lymph nodes Category: Medical Plan start Asmanex HFA CT chest in 2 months F/U after CT Orders: Orders CT chest wo IV con Today R91.1 - Solitary pulmonary nodule Medications: New mometasone 100 mcg/actuation (Asmanex HFA) 1 inh inhalation BID 13 grams 11RF 30 days R91.1 - Solitary pulmonary nodule Coding Level of Care Code Est Pt Level 4 (48873) Complex EM visit Add On [id number] Diagnoses Pneumonia of left lower lobe due to infectious organism J18.9 Laterality: left Lung location: lower lobe of lung Pneumonia type: due to unspecified organism Pulmonary nodule R91.1 Malignant neoplasm of esophagus, unspecified location C15.9 Malignant neoplasm of esophagus location: unspecified location Lymphadenopathy, mediastinal R59.0 Time Spent (min) 17
== END 2024-06-15 09:24 | disposition home or self-care (01) ==
PROVIDERS: PCP Internal Medicine; Visit Provider Hospitalist
DX: J18.9 Pneumonia, unspecified organism (principal); R91.1 Solitary pulmonary nodule; C15.9 Malignant neoplasm of esophagus, unspecified; R59.0 Localized enlarged lymph nodes
CPT/HCPCS: 99214; G2211

== ENCOUNTER → 2024-06-15 08:52 | Outpatient (BNVA) | payer OTHER, SELFPAY | PROVIDERS: PCP Internal Medicine; Visit Provider Hospitalist | DX: J18.9 Pneumonia, unspecified organism (principal); R91.1 Solitary pulmonary nodule; R59.0 Localized enlarged lymph nodes; C15.9 Malignant neoplasm of esophagus, unspecified | CPT/HCPCS: 99212 ==

== ENCOUNTER 2024-09-07 07:26 | Outpatient (REF) | payer OTHER, SELFPAY ==
--- OUTSIDE RECORDS SUMMARY | 2024-09-12 23:09 | XMS_ITS ---
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 This section includes the names of all active insurance providers for the patient. Insurance Provider Type of Coverage Plan Name Start of Policy Coverage End of Policy Coverage Group Number Member ID Insurance Provider's Telephone Number Policy Root's Name Patient's Relationship to Policy Root TOMER BOWMANBS OF [facility] GE Apr 03, 2009 [id number] BLANCHEFRANCIS HERNANDEZ SPOUSE BCBS [facility]* Apr 03, 2009 [id number] [phone] BLANCHE, JANET SPOUSE BCBS [facility] [place] GE Apr 03, 2009 [id number] FRANCIS MANCIA SPOUSE [employer] ([id number]) PRESCRIPT ION L4TA* Apr 03, 2009 [id number] [id number] FRANCIS MANCIA SPOUSE [employer] ([id number]) PRESCRIPT ION L4TA* Apr 03, 2009 L4TA [id number] FRANCIS MANCIA SPOUSE [employer] ([id number]) PRESCRIPT ION Apr 03, 2009 L4TA [id number] FRANCIS MANCIA SPOUSE MEDICARE (WNR) MEDICARE (M) PART B Jun 04, 2020 PART B [id number] RAÚL MANCIA PATIENT MEDICARE (WNR) MEDICARE (M) PART A Oct 04, 2006 PART A [id number] RAÚL MANCIA PATIENT MEDICARE (WNR) MEDICARE (M) PART A Oct 04, 2006 PART A [id number] [phone] RAÚL MANCIA PATIENT Selected Encounter This section includes the information on record at [place] for the Encounter. Date/Time Encounter Type Encounter Description Reason Provider Source Oct 08, 2023 03:30 PM OFFICE O/P EST SF 10 MIN PRIMARY CARE/MEDICINE ICD-10-CM C15.9 Malignant neoplasm of esophagus, unspecified OLIVA PEGUERO [facility] Encounter Template Text not used by [place] Assessments - Encounter Diagnoses This section includes the primary and secondary diagnoses documented for the Encounter. Date/Time Primary/Secondary Diagnosis Diagnosis Name Provider Source Oct 08, 2023 04:02 PM PRIMARY Malignant neoplasm of esophagus, unspecified [facility] Oct 08, 2023 04:02 PM SECONDARY Encounter for immunization [facility]GU[facility] [place] Plan of Treatment: Future Appointments (+ 6 months) and Future Tests (+/- 45 days) The Plan of Treatment section includes future care activities for the patient from all [place] treatmentfacilities. This section includes future appointments and future orders which are active, pending or scheduled. Future Appointments This section includes appointments that were scheduled to occur 6 months from the date of the Encounter, up to a maximum of 20 appointments. The data comes from all [place] treatment facilities. Appointment Date/Time Appointment Type Appointme nt Facility Name Dec 16, 2023 11:00 AM AMBULATORY - MEDICINE [facility] [place] [facility] Jan 11, 2024 10:00 AM AMBULATORY MEDICINE [facility] [place] [facility] Jan 17, 2024 07:30 AM AMBULATORY - MEDICINE [facility] Active, Pending, and Scheduled Orders This section includes a listing of several types of active, pending, and scheduled orders, including clinic medications orders, diagnostic test orders, procedure orders and consult orders; where the start date of the order is 45 days before the date of the Encounter or 45 days after the date of theEncounter. The data comes from all [place] treatment facilities. Test Date/Time Test Type Test Details Facility Name Oct 01, 2023 12:00 AM Laboratory - Chemistry Order URINALYSIS CLEAN CATCH URINE SP [facility] Lab Results: +/- 30 days of the encounter This section includes the Chemistry and Hematology Lab Results on record with [place] for the patient. Radiology Reports and Pathology Reports are provided separately, in subsequent sections. Lab Results This section contains the Chemistry/Hematology Results that were resulted 30 days before or 30 daysafter the date of the Encounter. Date/Time Source Result Type Result - Unit Interpretation Reference Range Comment Oct 01, 2023 07:31 AM [facility] URIC ACID Specimen Type: SERUM No comment entered. Ordering Provider: OLIVA PEGUERO Report Released Date/Time: Sep 26, 2023 06:56 PM Reporting Lab: [address] [address] Performing Lab: [address] [address] URIC ACID 5.6 mg/dL 3.5-7.2 Oct 01, 2023 07:31 AM [facility] BASIC METABOLIC PANEL (fasting) Specimen Type: SERUM No comment entered. Ordering Provider: OLIVA PEGUERO Report Released Date/Time: Sep 26, 2023 06:56 PM Reporting Lab: [address] [address] Performing Lab: [address] [address] UREA NITROGEN 25 mg/dL 7-25 GLUCOSE 105 mg/dL H 65-100 SODIUM 139 mmol/L 135-145 POTASSIUM 4.3 mmol/L 3.5-5.0 CHLORIDE 106 mmol/L 100-110 CO2 23 meq/L 20-30 CREATININE, Serum 0.85 mg/dL 0.50-1.40 eGFR(CKD-EPI 2020) 89 mL/min >60 Oct 01, 2023 07:31 AM [facility] TSH Specimen Type: SERUM No comment entered. Ordering Provider: OLIVA PEGUERO Report Released Date/Time: Sep 26, 2023 06:56 PM Reporting Lab: [facility] [address] [facility] [address] Performing Lab: [facility] [address] [facility] [address] TSH 1.01 u[IU]/mL 0.35-5.00 Oct 01, 2023 07:31 AM [facility] LIVER FUNCTION Specimen Type: SERUM No comment entered. Ordering Provider: OLIVA PEGUERO Report Released Date/Time: Sep 26, 2023 06:56 PM Reporting Lab: [facility] [address] [facility] [address] Performing Lab: [facility] [address] PROTEIN,TOTAL 6.4 g/dL 6.0-8.3 ALBUMIN 3.7 g/dL 3.5-5.0 ALKALINE PHOSPHATASE 130 U/L 40-150 AST 16 U/L 5-34 ALT 12 U/L BILIRUBIN, TOTAL 0.4 mg/dL 0.2-1.2 Oct 01, 2023 07:31 AM [facility] LIPID PANEL FASTING Specimen Type: SERUM No comment entered. Ordering Provider: OLIVA PEGUERO Report Released Date/Time: Sep 26, 2023 06:56 PM Reporting Lab: [facility] [address] Performing Lab: [facility] [address] CHOLESTEROL 183 mg/dL TRIGLYCERIDE 104 mg/dL 0-150 LDL calculated 114 mg/dL 0-129 CHOL/HDL 3.8 HDL CHOLESTEROL 48 mg/dL 40-60 Oct 01, 2023 07:31 AM [facility] CBC AND DIFF (AUTO) Specimen Type: BLOOD No comment entered. Ordering Provider: OLIVA PEGUERO Report Released Date/Time: Sep 26, 2023 06:56 PM Reporting Lab: [facility] [address] [facility] [address] Performing Lab: [facility] [address] [facility] [address] WBC 6.28 10*3/uL 4.50-11.00 RBC 4.75 10*6/uL 4.23-5.66 HGB 12.0 g/dL L 12.8-17 HCT 38.4 L 39.2-50.4 MCV 80.8 fL L 82-99 MCHC 31.3 g/dL 30.8-35.1 PLT 190 10*3/uL 140-360 RDW-CV 15.2 12.0-16.0 [place], Abs 0.56 10*3/uL 0.30-1.10 MCH 25.3 pg L 26.2-32.6 Neut % 73.1 43.7-75.8 Lymph % 13.5 L 14.0-42.3 [place] % 8.9 5.1-13.7 Eos % 3.7 0.4-6.8 Baso % 0.5 0.1-2.0 Neut, Abs 4.59 10*3/uL 2.20-7.60 Lymph, Abs 0.85 10*3/uL L 1.00-3.20 Eos, Abs 0.23 10*3/uL 0.03-0.44 Baso, Abs 0.03 10*3/uL 0.01-0.13 Immature Gran % 0.3 0.0-0.7 Immature Gran, Abs 0.02 10*3/uL 0.00-0.06 Vital Signs: All taken on the encounter date This section contains inpatient and outpatient Vital Signs collected on the date of the Encounter. Date/Time Temperature Pulse Blood Pressure Respiratory Rate SP02 Pain Height Weight Body Mass Index Source Oct 08, 2023 03:19 PM 97.5 F 82 /min 118/80 mm[Hg] 16 /min 99 % 0 189 lb 26 [facility] Immunizations: All administered on the encounter date This section contains immunizations associated to the Encounter. Immunization Series Date Issued Reaction Comments COVID-19 (MODERNA), MRNA, LN P-S, PF, 50 MCG/0.5 ML (AGES 12+ YEARS) 6 Oct 08, 2023 Social History: Smoking Status (Most current) and Tobacco Use (All prior to encounter date) This section includes the most current, and the historical, smoking and tobacco- related health factors from the [place] facility where the Encounter took place. Current Smoking Status This section includes the most current smoking, or tobacco-related health factor, from the [place] facility where the Encounter took place. Date/Time Current Smoking Status Comment Ronald ity Jan 27, 2023 10:00 AM VA-TOBACCO NEVER USED [place] [facility] [place] [facility] Tobacco Use History This section includes a history of the smoking, or tobacco-related health factors, that were collected on or before the date of the Encounter. The data comes from the [place] facility where the Encounter took place. Date/Time Smoking Status/Tobacco Use Comment F acility Jan 06, 2022 09:00 AM VA-TOBACCO NEVER USED [facility] [place] [facility] Dec 31, 2020 08:00 AM VA-TOBACCO NEVER USED VA [facility] [place] [facility] Dec 27, 2019 09:48 AM VA-TOBACCO NEVER USED VA [facility] [place] [facility] Jun 30, 2018 08:41 AM VA-TOBACCO NEVER USED VA [facility] [place] [facility] Dec 23, 2017 07:46 AM LIFETIME NON-TOBACCO USER [facility] [place] [facility] Dec 22, 2016 08:06 AM LIFETIME NON-TOBACCO USER [facility] [place] [facility] Dec 24, 2015 08:36 AM LIFETIME NON-TOBACCO USER [facility] [place] [facility] Jun 19, 2004 01:52 PM LIFETIME NON-SMOKER [facility] [place] [facility] Jun 19, 2004 01:52 PM LIFETIME NON-TOBACCO USER [facility] [place] [facility] Jun 19, 2004 01:34 PM LIFETIME NON-SMOKER [facility] [place] [facility] Jun 19, 2004 01:34 PM LIFETIME NON-TOBACCO USER [facility] [place] [facility] Advance Directives: All historical and current Section Date Range: From patient's date of to the date document was created. This section includes ALL of a patient's completed or amended [place] Advance and Rescinded Directives. The entries below indicate that a directive exists for the patient, but an actual copy is not included with this document. The data comes from all [place] facilities. Date Advance Directives Provider Source May 20, 2006 ADVANCE DIRECTIVE MARINA FAJARDO [place] [facility] Encounter Notes: All associated encounter notes This section contains the clinical notes associated to the Encounter. Date/Time Encounter Note(s) Provider Source Oct 08, 2023 03:37 PM PHYSICIAN NOTE: LOCAL TITLE: MD NOTE STANDARD TITLE: PHYSICIAN NOTE DATE OF NOTE: OCT 08, 2023@15:37 ENTRY DATE: OCT 08, 2023@15:37:24 AUTHOR: OLIVA PEGUERO EXP COSIGNER: URGENCY: STATUS: COMPLETED Patient Name: RAÚL MANCIA VITALS: Patient temperature: 97.5 F [36.4 C] (10/08/2023 15:19) Blood pressure: 118/80 (10/08/2023 15:19) Patient height: 72 in [182.9 cm] (03/08/2023 08:05) Patient weight: 189 lb [85.73 kg] (10/08/2023 15:19) Patient BMI: BMI: 25.7 Patient pulse: 82 (10/08/2023 15:19) Patient respiration: 16 (10/08/2023 15:19) Patient Pulse Oximetry: 99% (10/08/2023 15:19) Pain Ratin (10/08/2023 15:19) Active [facility] Medications: Active Outpatient Medications (including Supplies): Active Outpatient Medications Status 1) ALLOPURINOL 100MG TAB TAKE TWO TABLETS BY MOUTH EVERY ACTIVE DAY FOR GOUT 2) DIPHENHYDRAMINE HCL 25MG CAP TAKE ONE CAPSULE BY ACTIVE MOUTH TWICE DAILY NEEDED FOR CHRONIC TROUBLE SLEEPING 3) FEED BAG W/GRAVTY SET ENFIT COVID#[id number] USE 1 ACTIVE GRAVITY BAG TOPICALLY ONCE DAILY FOR NUTRITION 4) GAUZE PAD 4IN X 4IN NONSTERILE APPLY GAUZE(S) ACTIVE TOPICALLY ONCE DAILY 5) GUAIFENESIN 600MG SA TAB TAKE ONE TABLET BY MOUTH ACTIVE TWICE DAILY NEEDED FOR COUGH FOLLOW DOSE WITH FULL GLASS OF WATER 6) IRRIGATION KIT W/PISTON SYRINGE K#[id number] USE 1 ACTIVE IRRIGATION KIT DIRECTED EVERY MONTH 7) METOPROLOL TARTRATE 25MG TAB TAKE ONE-HALF TABLET BY ACTIVE MOUTH TWICE DAILY FOR BLOOD PRESSURE/HEART 8) NUTR SUPL OSMOLITE 1.2 RITESH LIQUID DRINK 1 CAN VIA ACTIVE G-TUBE 9 TIMES A DAY FOR NUTRITIONAL SUPPLEMENTATION 9) SIMVASTATIN 80MG TAB TAKE ONE-HALF TABLET BY MOUTH AT ACTIVE BEDTIME FOR CHOLESTEROL 10) SYRINGE, IRRIGATION W/BULB 60CC USE 1 SYRINGE HOLD TOPICALLY ONCE DAILY DIRECTED FOR FLUSHING ENFIT CONNECTOR 11) VALVE,AMAIRANI ENTERAL,ICU MEDICAL #[id number] USE 1 VALVE ACTIVE ONCE A WEEK Remote Medications: No Active 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 Patient declined surgery. Presently getting immunotherapy. Gastrostomy tube fell out on its own. Eating well with no complaints. Normal bowel movements. Review of systems No chest pain or dyspnea No abdominal pain No trouble urinating No fever or chills No cough Physical examination Well-developed well-nourished male no acute distress pharynx no erythema Coronary no murmur Lungs clear No peripheral edema Abdomen positive bowel sounds soft nontender no masses Gastrostomy tube site well-healed without erythema or dehiscence WBC: 6.28 RBC: 4.75 HGB: 12.0 L HCT: 38.4 L MCV: 80.8 L MCHC: 31.3 RDW: 15.2 PLT: 190 MCH: 25.3 L Neut %: 73.1 Lymph %: 13.5 L [place] %: 8.9 Eos %: 3.7 Baso %: 0.5 Neut, Abs: 4.59 Lymph, Abs: 0.85 L [place], Abs: 0.56 Eos, Abs: 0.23 Baso, Abs: 0.03 Immature Granulocytes %: 0.3 Immature Granulocytes, Abs: 0.02 GLUCOSE: 105 H UREA NITROGEN: 25 SODIUM: 139 POTASSIUM: 4.3 CHLORIDE: 106 CO2: 23 URIC ACID: 5.6 CHOLESTEROL: 183 PROTEIN,TOTAL: 6.4 ALBUMIN: 3.7 ALKALINE PHOSPHATASE: 130 SGOT: 16 SGPT: 12 TRIGLYCERIDE: 104 LDL CHOL: 114 CHOL/HDL RATIO: 3.8 HDL: 48 BILIRUBIN,TOT.: 0.4 TSH (Access): 1.01 CREATININE-EGFR: 0.85 eGFR CKD-EPI 2020: 89 I discussed above test results with patient assessment and plan: 1. Esophageal cancer: Patient feels well today with no complaints. Eating well Plan: Continue immunotherapy Follow-up 3 months clinic visit and lab Alcohol Use Screen (AUDIT-C): Alcohol Screen: SCREEN FOR ALCOHOL (AUDIT-C) An alcohol screening test (AUDIT-C) was negative (score=1). 1. How often did you have a drink containing alcohol in the past year? Consider a drink to be a 12 ounce can or bottle of regular beer, 8 ounces of malt liquor, a 5 ounce glass of table wine, or a 1.5 ounce shot of liquor (like scotch, gin, or vodka). Monthly or less 2. How many drinks containing alcohol did you have on a typical day when you were drinking in the past year? One or two drinks 3. How often did you have six or more drinks on one occasion in the past year? Never Sexual Orientation: The patient thinks of their sexual orientation as: Straight or Heterosexual Medication Reconciliation: Outpatient: Has the patient been taking medications as documented in the EMLR? YES: The patient has been taking medications as documented in the EMLR. Essential Medication List for Review used to complete this medication reconciliation. INCLUDED IN THIS LIST: Alphabetical list of active outpatient prescriptions dispensed from this [facility] (local) and dispensed from another [place] or DoD facility (remote) as well as inpatient orders (local, pending and active), local clinic medications, locally documented non-VA medications, and local prescriptions that have or been discontinued in the past 90 days. - All changes in medications, including all non-VA/Herbal/OTC medications were entered into CPRS. - If there were any medications the patient should no longer take, they were discontinued. - The patient/caregiver was instructed to update this list, discard old lists, and take this list to the next appointment, whether with a VA or non-VA provider. /delores/ Oliva Peguero MD Staff Physician Signed: 10/08/2023 16:02 OLIVA PEGUERO [place] [facility] Oct 08, 2023 03:33 PM PREVENTIVE MEDICIN E NURSING NOTE: LOCAL TITLE: CLINICAL REMINDERS/NURSING STANDARD TITLE: PREVENTIVE MEDICINE NURSING NOTE DATE OF NOTE: OCT 08, 2023@15:33 ENTRY DATE: OCT 08, 2023@15:33:04 AUTHOR: FAB [place] EXP COSIGNER: URGENCY: STATUS: COMPLETED Homelessness/Food Insecurity Screen: In the past 2 months, have you been living in stable housing that you own, rent, or stay in as part of a household? Yes - Living in stable housing. Are you worried or concerned that in the next 2 months you may NOT have stable housing that you own, rent, or stay in as part of a household? No - Not worried about housing near future The reports the following: Within the past 12 months, you worried whether your food would run out before you got money to buy more. Never true Within the past 12 months, the food you bought just didn't last and you didn't have money to get more. Never true Depression Screening: Perform PHQ-2 A PHQ-2 screen was performed. The score was 0 which is a negative screen for depression. Over the past two weeks, how often have you been bothered by the following problems? 1. Little interest or pleasure in doing things Not at all 2. 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 Lot: [id number] Exp Date: February 17, 2024 [facility]: [id number] Admin Route/Site: INTRAMUSCULAR/LEFT DELTOID Dosage: 0.5mL Vaccine Information Statement(s): COVID-19 MRNA VACCINE (12+ YRS) VACCINE VIS Jul 22, 2023 ([place]) Order By: Policy Administered By: Fab [place] Vaccine administered without complications. The patient was advised to remain in the facility for 15 minutes post vaccination. /delores/ FAB FRANCE LPN License Practical Nurse Signed: 10/08/2023 15:34 [facility]AB [facility]
--- OUTSIDE RECORDS SUMMARY | 2024-09-12 23:09 | XMS_ITS | Continuity of Care Document ---
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 It does not include entries that were removed or entered in error. Problem Status Onset Date Problem Type Date of Resolution Comments Source Anemia (SCT [id number]) Active 10/04/19 23 Condition Jan 27, 2023 Entered By: OLIVA PÉREZ Comment: labs ordered to evaluate [facility] Malignant neoplasm of esophagus Active 10/04/19 23 Condition Apr 23, 2023 Entered By: OLIVA PÉREZ Comment: Treated with radiation and chemotherapy [facility] Weight loss Active 10/04/19 23 Condition Jan 27, 2023 Entered By: OLIVA PÉREZ Comment: ordered CT scans [facility] Impaired fasting glucose Active 10/04/19 22 Condition Jan 06, 2022 Entered By: OLIVA PÉREZ Comment: treated with diet [facility] ACTINIC KERATOSES Active 10/04/19 07 Condition [facility] Gout Active 10/04/19 07 Condition [facility] Arthritis * (ICD-9-CM 716.90) Active Condition [facility] Hypercholesterol emia, 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 [facility] Hypertension Active Condition [facility] Hypertension * (ICD-9-CM 401.9) Active Condition [facility] Pain in joint involving ankle and foot (ICD-9-CM 719.47) Active Condition Aug 03, 2007 Entered By: PURVI SPARKS Comment: R fore foot pain [facility] Diagnosis: ICD-10-CM Q66.70 Congenital pes cavus, unspecified foot Active Diagnosis [facility] Diagnosis: ICD-10-CM C15.9 Malignant neoplasm of esophagus, unspecified Active Diagnosis [facility] [place] [facility] Diagnosis: ICD-10-CM Z46.0 Encounter for fit/adjst of spectacles and contact lenses Active Diagnosis [facility] [place] [facility] Diagnosis: ICD-10-CM H25.813 Combined forms of age-related cataract, bilateral Active Diagnosis [facility] Diagnosis: ICD-10-CM R73.01 Impaired fasting glucose Active Diagnosis [facility] Diagnosis: ICD-10-CM Z23 Encounter for immunization Active Diagnosis [facility] Diagnosis: ICD-10-CM R63.4 Abnormal weight loss Active Diagnosis [facility] ([facility]) Diagnosis: ICD-10-CM Z71.3 Dietary counseling and surveillance Active Diagnosis [facility] Medications Combined list of outpatient medications from Department of Defense and Veterans Affairs facilities.Medications provided include 1) outpatient medications from the last 15 months, and 2) patient-reported medications. Medication Details Route Status Patient Instructions Prescription Expires Prescription Number Last Dispense Date Ordering Provider Order Date Order Qty Source ALLOPURINOL 100MG TAB TAKE TWO TABLETS BY MOUTH EVERY DAY FOR GOUT ORAL ACTIVE 10/08/2024 [id number] NAPOLEON PÉREZ 2023 180 [facility] ALLOPURINOL 100MG TAB TAKE TWO TABLETS BY MOUTH EVERY DAY FOR GOUT ORAL DISCONT INUED 12/31/2023 [id number] NAPOLEON PÉREZ 2022 180 [facility] METOPROLOL TARTRATE 25MG TAB TAKE ONE-HALF TABLET BY MOUTH TWICE DAILY FOR BLOOD PRESSURE /HEART ORAL DISCONT INUED BY PROVIDE R 10/08/2024 [id number] 4 NAPOLEON PÉREZ 2023 90 [facility] METOPROLOL TARTRATE 25MG TAB TAKE ONE-HALF TABLET BY MOUTH TWICE DAILY FOR BLOOD PRESSURE /HEART ORAL DISCONT INUED 01/01/2024 [id number] NAPOLEON PÉREZ NEIL D 2022 90 [facility] MOMETASONE FUROATE 100MCG/ACTU AT INHL,ORAL,1 20D,13GM INHALE 1 INHALATI ON BY MOUTH TWICE DAILY RESPIR ATORY (INHAL ATION) ACTIVE 06/16/2025 [id number] ADITYA HARRIS 2023 1 [facility] OSMOLITE 1.2 RITESH LIQUID DRINK 1 CAN VIA G-TUBE 9 TIMES A DAY FOR NUTRITIO NAL SUPPLEME NTATION ORAL 04/15/2024 [id number] NAPOLEON PÉREZ NEIL D 2022 264 [facility] RSV VACCINE INJ,LYPHL,S YR,KIT INJECT 0.5ML INTRAMUS CULARLY ONE TIME INTRAM USCULA R 07/27/2023 [id number] NAPOLEON PÉREZ D 2022 1 [facility] SIMVASTATIN 80MG TAB TAKE ONE-HALF TABLET BY MOUTH AT BEDTIME FOR CHOLESTE ROL ORAL SUSPEND ED 08/17/2025 [id number] 5 NAPOLEON PÉREZ D 2024 45 [facility] SIMVASTATIN 80MG TAB TAKE ONE-HALF TABLET BY MOUTH AT BEDTIME FOR CHOLESTE ROL ORAL DISCONT INUED 10/08/2024 [id number] 4 NAPOLEON PÉREZ D 2023 45 [facility] SIMVASTATIN 80MG TAB TAKE ONE-HALF TABLET BY MOUTH AT BEDTIME FOR CHOLESTE ROL ORAL DISCONT INUED 01/01/2024 [id number] 3 NAPOLEON PÉREZ D 2022 45 [facility] Immunizations Combined list of available immunizations from the Department of Defense and Veterans Affairs facilities. Immunization Series Date Given Administered By Site Reaction Lot Number CVX Code Drug Quality Audit Representative Status Comments Source COVID-19 (MODERNA), MRNA, LNP-S, PF, 50 MCG/0.5 ML (AGES 12+ YEARS) 6 2023 [facility] [place] LEFT DELTO ID [id number] 312 complet ed [facility] RSV, BIVALENT, PROTEIN SUBUNIT RSVPREF, DILUENT RECONSTITUTED , 0.5 ML, PF 2022 NIMISHAMARK LEFT DELTO ID [id number] 305 complet ed [facility] INFLUENZA, HIGH-DOSE, QUADRIVALENT 2022 JULIA MEDINA Phill LEFT DELTO ID [id number] 197 complet ed [facility] [place] COVID-19 (MODERNA), MRNA, LNP-S, BIVALENT BOOSTER, PF, 50 MCG/0.5 ML OR 25MCG/0.25 ML DOSE 1 2021 229 complet ed MOD; [id number]; 3 [facility] [place] INFLUENZA VACCINE, QUADRIVALENT, ADJUVANTED 2021 205 complet ed [facility] COVID-19 (MODERNA), MRNA, LNP-S, PF, 100 MCG/0.5ML DOSE OR 50 MCG/0.25ML DOSE 4 2021 207 complet ed MOD; [id number]; 2 [facility] COVID-19 (MODERNA), MRNA, LNP-S, PF, 100 MCG/0.5ML DOSE OR 50 MCG/0.25ML DOSE 3 2020 207 complet ed [facility] INFLUENZA VACCINE, QUADRIVALENT, ADJUVANTED 2020 205 complet ed [facility] COVID-19 (MODERNA), MRNA, LNP-S, PF, 100 MCG/0.5 ML DOSE 2 2020 207 complet ed [facility] COVID-19 (MODERNA), MRNA, LNP-S, PF, 100 MCG/0.5 ML DOSE 1 2020 207 complet ed [facility] INFLUENZA, INJECTABLE, QUADRIVALENT, PRESERVATIVE FREE 2019 150 complet ed [facility] TD(ADULT) UNSPECIFIED FORMULATION 2019 139 complet ed Site: Left Deltoid, Site: Right Deltoid [facility] INFLUENZA, INJECTABLE, QUADRIVALENT, PRESERVATIVE FREE 2018 150 complet ed Site: Left Deltoid [facility] INFLUENZA, SEASONAL, INJECTABLE 2017 141 complet ed Site: Right Deltoid [facility] ZOSTER RECOMBINANT 2 2017 187 complet ed [facility] ZOSTER RECOMBINANT 1 2017 187 complet ed [facility] FLU,3 YRS (HISTORICAL) 2016 88 complet ed [facility] FLU,3 YRS (HISTORICAL) 2015 88 complet ed Site: Right Deltoid [facility] FLU,3 YRS (HISTORICAL) 2014 88 complet ed Site: Right Deltoid [facility] PNEUMOCOCCAL CONJUGATE PCV 13 2014 133 complet ed [facility] FLU,3 YRS (HISTORICAL) 2013 88 complet ed Site: Left Deltoid [facility] PNEUMOCOCCAL, UNSPECIFIED FORMULATION 2013 109 complet ed [facility] FLU,3 YRS (HISTORICAL) 2012 88 complet ed [facility] FLU,3 YRS (HISTORICAL) 2011 88 complet ed Site: Left Deltoid [facility] FLU,3 YRS (HISTORICAL) 2010 88 complet ed Site: Left Deltoid [facility] FLU,3 YRS (HISTORICAL) 2009 88 complet ed Site: Left Deltoid [facility] DTAP, UNSPECIFIED FORMULATION 2009 107 complet ed Site: Left Deltoid [facility] NOVEL INFLUENZA-H1N 1-09, ALL FORMULATIONS 2009 128 complet ed [employer] [facility] FLU,3 YRS (HISTORICAL) 2008 88 complet ed Site: Right Deltoid [facility] ZOSTER LIVE 2008 MARYBETH ABERNATHY 121 complet ed [facility] PNEUMOCOCCAL, UNSPECIFIED FORMULATION 2008 109 complet ed [facility] FLU,3 YRS (HISTORICAL) 2007 88 complet ed Site: Left Deltoid [facility] FLU,3 YRS (HISTORICAL) 2006 OLIVA PÉREZ 88 complet ed [facility] FLU,3 YRS (HISTORICAL) 2004 MAHESH STUART 88 complet ed [facility] Results Combined list of recent chemistry, hematology and other laboratory results from Department of Defense and Veterans Affairs, ranging from 15 months to all on record, depending upon the facility. Order Name Results Value Reference Range Date Interpretation Specimen Comments Source BASIC METABOLI C PANEL (fasting ) UREA NITROGEN [MASS/VOLU ME] IN SERUM OR PLASMA 23 mg/dL 7 - 25 05/24 Specimen Type: SERUM No comment entered. Ordering Provider: FLAQUITO PÉREZ Report Released Date/Time: May 06, 2024 05:41 PM Reporting Lab: [facility] [address] [address] Performing Lab: [facility] [address] [address] [facility] [place] [facility] BASIC METABOLI C PANEL (fasting ) GLUCOSE [MASS/VOLU ME] IN SERUM OR PLASMA 109 mg/dL 65 - 100 05/24 H Specimen Type: SERUM No comment entered. Ordering Provider: FLAQUITO PÉREZ Report Released Date/Time: May 06, 2024 05:41 PM Reporting Lab: [facility] [address] [address] Performing Lab: [facility] [place] [facility] [address] [address] [facility] [facility] BASIC METABOLI C PANEL (fasting ) SODIUM [MOLES/VOL UME] IN SERUM OR PLASMA 137 mmol/L 135 - 145 05/24 Specimen Type: SERUM No comment entered. Ordering Provider: FLAQUITO PÉREZ Report Released Date/Time: May 06, 2024 05:41 PM Reporting Lab: [facility] [place] [facility] [address] [address] Performing Lab: [facility] [address] [facility]TRN [facility] BASIC METABOLI C PANEL (fasting ) POTASSIUM [MOLES/VOL UME] IN SERUM OR PLASMA 4.3 mmol/L 3.5 - 5.0 05/24 Specimen Type: SERUM No comment entered. Ordering Provider: FLAQUITO PÉREZ Report Released Date/Time: May 06, 2024 05:41 PM Reporting Lab: [facility] TRN [facility]USE[address] [address] Performing Lab: [facility] [address] [address] [facility]ITALRS[facility]ENTERTRN [facility]USE [facility] BASIC METABOLI C PANEL (fasting ) CHLORIDE [MOLES/VOL UME] IN SERUM OR PLASMA 103 mmol/L 100 - 110 05/24 Specimen Type: SERUM No comment entered. Ordering Provider: FLAQUITO PÉREZ Report Released Date/Time: May 06, 2024 05:41 PM Reporting Lab: [facility] [place] [facility] [address] [address] Performing Lab: [facility] [address] [facility]RL [facility]ERN [facility]USE [facility] BASIC METABOLI C PANEL (fasting ) CARBON DIOXIDE, TOTAL [MOLES/VOL UME] IN SERUM OR PLASMA 23 meq/L 20 - 30 05/24 Specimen Type: SERUM No comment entered. Ordering Provider: FLAQUITO PÉREZ Report Released Date/Time: May 06, 2024 05:41 PM Reporting Lab: [facility] [place] [facility] [address] [address] Performing Lab: [facility] [place] [facility] [address] [address] [facility] [facility] BASIC METABOLI C PANEL (fasting ) CREATININE [MASS/VOLU ME] IN SERUM OR PLASMA 0.83 mg/dL 0.50 - 1.40 05/24 Specimen Type: SERUM No comment entered. Ordering Provider: FLAQUITO PÉREZ Report Released Date/Time: May 06, 2024 05:41 PM Reporting Lab: [facility] [place] [place] [facility] [address] [address] Performing Lab: [facility] [place] [place] [address] [address] [facility] [place] [facility] BASIC METABOLI C PANEL (fasting ) GLOMERULAR FILTRATION RATE/1.73 SQ M.PREDICTE D [VOLUME RATE/AREA] IN SERUM, PLASMA OR BLOOD BY CREATININE -BASED FORMULA (CKD-EPI 2020) 90 mL/min 60 05/24 Specimen Type: SERUM No comment entered. Ordering Provider: FLAQUITO PÉREZ Report Released Date/Time: May 06, 2024 05:41 PM Reporting Lab: [facility] [place] [address] [address] Performing Lab: [facility] [place] [place] [address] [address] [facility] [place] [facility] CBC AND DIFF (AUTO) LEUKOCYTES [#/VOLUME] IN BLOOD BY AUTOMATED COUNT 8.44 10*3/uL 4.50 - 11.00 05/24 Specimen Type: BLOOD No comment entered. Ordering Provider: FLAQUITO PÉREZ Report Released Date/Time: May 06, 2024 05:41 PM Reporting Lab: [facility] [place] [address] [address] Performing Lab: [facility] SYSTEMUSETS [address] [address] [facility] [place] [facility] CBC AND DIFF (AUTO) ERYTHROCYT ES [#/VOLUME] IN BLOOD BY AUTOMATED COUNT 5.28 10*6/uL 4.23 - 5.66 05/24 Specimen Type: BLOOD No comment entered. Ordering Provider: FLAQUITO PÉREZ Report Released Date/Time: May 06, 2024 05:41 PM Reporting Lab: [facility] [place] [facility] [address] [address] Performing Lab: [facility] [place] [facility] [address] [address] [facility] [place] [facility] CBC AND DIFF (AUTO) HEMOGLOBIN [MASS/VOLU ME] IN BLOOD 13.2 g/dL 12.8 - 17 05/24 Specimen Type: BLOOD No comment entered. Ordering Provider: FLAQUITO PÉREZ Report Released Date/Time: May 06, 2024 05:41 PM Reporting Lab: [facility] [place] [place] [address] [address] Performing Lab: [facility] [place] [place] [facility] [address] [address] [facility]ITALRSOU[facility] CENTERTRN [place] [facility] CBC AND DIFF (AUTO) HEMATOCRIT [VOLUME FRACTION] OF BLOOD BY AUTOMATED COUNT 41.0 39.2 - 50.4 05/24 Specimen Type: BLOOD No comment entered. Ordering Provider: FLAQUITO PÉREZ Report Released Date/Time: May 06, 2024 05:41 PM Reporting Lab: [facility] [place] [place] [facility] [address] [address] Performing Lab: [facility] [place] [facility] [address] [address] [facility] [place] [facility] CBC AND DIFF (AUTO) MCV [ENTITIC VOLUME] BY AUTOMATED COUNT 77.7 fL 82 - 99 05/24 L Specimen Type: BLOOD No comment entered. Ordering Provider: FLAQUITO PÉREZ Report Released Date/Time: May 06, 2024 05:41 PM Reporting Lab: [facility] [place] [facility] [address] [address] Performing Lab: [facility] [place] [place] [facility] [address] [address] [facility] [place] [facility] CBC AND DIFF (AUTO) MCHC [MASS/VOLU ME] BY AUTOMATED COUNT 32.2 g/dL 30.8 - 35.1 05/24 Specimen Type: BLOOD No comment entered. Ordering Provider: FLAQUITO PÉREZ Report Released Date/Time: May 06, 2024 05:41 PM Reporting Lab: [facility] [place] [facility] [address] [address] Performing Lab: [facility] [place] [facility] [address] [address] [facility] [place] [facility] CBC AND DIFF (AUTO) PLATELETS [#/VOLUME] IN BLOOD BY AUTOMATED COUNT 255 10*3/uL 140 - 360 05/24 Specimen Type: BLOOD No comment entered. Ordering Provider: FLAQUITO PÉREZ Report Released Date/Time: May 06, 2024 05:41 PM Reporting Lab: [facility] [place] [facility] [address] [address] Performing Lab: [facility] [place] [facility] [address] [address] [facility] [place] [facility] CBC AND DIFF (AUTO) ERYTHROCYT E DISTRIBUTI ON WIDTH [RATIO] BY AUTOMATED COUNT 18.7 12.0 - 16.0 05/24 H Specimen Type: BLOOD No comment entered. Ordering Provider: FLAQUITO PÉREZ Report Released Date/Time: May 06, 2024 05:41 PM Reporting Lab: [facility] [place] [facility] [address] [address] Performing Lab: [facility] [place] [facility] [address] [address] [facility] [place] [facility] CBC AND DIFF (AUTO) MONOCYTES [#/VOLUME] IN BLOOD BY AUTOMATED COUNT 0.62 10*3/uL 0.30 - 1.10 05/24 Specimen Type: BLOOD No comment entered. Ordering Provider: FLAQUITO PÉREZ Report Released Date/Time: May 06, 2024 05:41 PM Reporting Lab: [facility] [place] [facility] [address] [address] Performing Lab: [facility] [place] [facility] [address] [address] [facility] [place] [facility] CBC AND DIFF (AUTO) MCH [ENTITIC MASS] BY AUTOMATED COUNT 25.0 pg 26.2 - 32.6 05/24 L Specimen Type: BLOOD No comment entered. Ordering Provider: FLAQUITO PÉREZ Report Released Date/Time: May 06, 2024 05:41 PM Reporting Lab: [facility] [place] [facility] [address] [address] Performing Lab: [facility] [place] [facility] [address] [address] [facility] [place] [facility] CBC AND DIFF (AUTO) NEUTROPHIL S/100 LEUKOCYTES IN BLOOD BY AUTOMATED COUNT 81.5 43.7 - 75.8 05/24 H Specimen Type: BLOOD No comment entered. Ordering Provider: FLAQUITO PÉREZ Report Released Date/Time: May 06, 2024 05:41 PM Reporting Lab: [facility] [place] [facility] [address] [address] Performing Lab: [facility] [place] [facility] [address] [address] [facility] [place] [facility] CBC AND DIFF (AUTO) LYMPHOCYTE S/100 LEUKOCYTES IN BLOOD BY AUTOMATED COUNT 10.2 14.0 - 42.3 05/24 L Specimen Type: BLOOD No comment entered. Ordering Provider: FLAQUITO PÉREZ Report Released Date/Time: May 06, 2024 05:41 PM Reporting Lab: [facility] [place] [facility] [address] [address] Performing Lab: [facility] [place] [facility] [address] [address] [facility] [place] [facility] CBC AND DIFF (AUTO) MONOCYTES/ 100 LEUKOCYTES IN BLOOD BY AUTOMATED COUNT 7.3 5.1 - 13.7 05/24 Specimen Type: BLOOD No comment entered. Ordering Provider: FLAQUITO PÉREZ Report Released Date/Time: May 06, 2024 05:41 PM Reporting Lab: [facility] [place] [facility] [address] [address] Performing Lab: [facility] [place] [facility] [address] [address] [facility] [place] [facility] CBC AND DIFF (AUTO) EOSINOPHIL S/100 LEUKOCYTES IN BLOOD BY AUTOMATED COUNT 0.0 0.4 - 6.8 05/24 L Specimen Type: BLOOD No comment entered. Ordering Provider: FLAQUITO PÉREZ Report Released Date/Time: May 06, 2024 05:41 PM Reporting Lab: [facility] [place] [facility] [address] [address] Performing Lab: [facility] [place] [address] [address] [facility] [place] [facility] CBC AND DIFF (AUTO) BASOPHILS/ 100 LEUKOCYTES IN BLOOD BY AUTOMATED COUNT 0.5 0.1 - 2.0 05/24 Specimen Type: BLOOD No comment entered. Ordering Provider: FLAQUITO PÉREZ Report Released Date/Time: May 06, 2024 05:41 PM Reporting Lab: [facility] [place] [address] [address] Performing Lab: [facility] [place] [address] [address] [facility] [place] [facility] CBC AND DIFF (AUTO) NEUTROPHIL S [#/VOLUME] IN BLOOD BY AUTOMATED COUNT 6.88 10*3/uL 2.20 - 7.60 05/24 Specimen Type: BLOOD No comment entered. Ordering Provider: FLAQUITO PÉREZ Report Released Date/Time: May 06, 2024 05:41 PM Reporting Lab: [facility] [place] [facility] [address] [address] Performing Lab: [facility] [place] [address] [address] [facility] [place] [facility] CBC AND DIFF (AUTO) LYMPHOCYTE S [#/VOLUME] IN BLOOD BY AUTOMATED COUNT 0.86 10*3/uL 1.00 - 3.20 05/24 L Specimen Type: BLOOD No comment entered. Ordering Provider: FLAQUITO PÉREZ Report Released Date/Time: May 06, 2024 05:41 PM Reporting Lab: [facility] [place] [address] [address] Performing Lab: [facility] [place] [address] [address] [facility] [place] [facility] CBC AND DIFF (AUTO) EOSINOPHIL S [#/VOLUME] IN BLOOD BY AUTOMATED COUNT 0.00 10*3/uL 0.03 - 0.44 05/24 L Specimen Type: BLOOD No comment entered. Ordering Provider: FLAQUITO PÉREZ Report Released Date/Time: May 06, 2024 05:41 PM Reporting Lab: [facility]TR[facility]US[facility] [address] [address] Performing Lab: [facility] [place] [address] [address] [facility]ITALRCHO[facility]ITALN [facility]USE [facility] CBC AND DIFF (AUTO) BASOPHILS [#/VOLUME] IN BLOOD BY AUTOMATED COUNT 0.04 10*3/uL 0.01 - 0.13 05/24 Specimen Type: BLOOD No comment entered. Ordering Provider: FLAQUITO PÉREZ Report Released Date/Time: May 06, 2024 05:41 PM Reporting Lab: [facility] [place] [address] [address] Performing Lab: [facility] [address] [address] [facility]ITALRCHOCTAW [facility]PITALN [facility]CHUSE [facility] CBC AND DIFF (AUTO) IMMATURE GRANULOCYT ES/100 LEUKOCYTES IN BLOOD BY AUTOMATED COUNT 0.5 0.0 - 0.7 05/24 Specimen Type: BLOOD No comment entered. Ordering Provider: FLAQUITO PÉREZ Report Released Date/Time: May 06, 2024 05:41 PM Reporting Lab: [facility] [place] [address] [address] Performing Lab: [facility]ITALRL TRN [facility] SYSTEMUSEMANH[facility] [address] [facility] [address] [facility]ITALRL TRN [facility] SYSTEMUSE [facility] CBC AND DIFF (AUTO) IMMATURE GRANULOCYT ES [#/VOLUME] IN BLOOD 0.04 10*3/uL 0.00 - 0.06 05/24 Specimen Type: BLOOD No comment entered. Ordering Provider: FLAQUITO PÉREZ Report Released Date/Time: May 06, 2024 05:41 PM Reporting Lab: [facility] [place] [facility] [address] [address] Performing Lab: [facility]RL [facility]ENTERN [facility] SYSTEMUSE[address] [address] [facility]PITALRCHOCTAW GENERAL HOSPITALN [facility] SYSTEMUSE [facility] CBC AND DIFF (AUTO) NRBC % 0.0 0.0 - 0.0 05/24 Specimen Type: BLOOD No comment entered. Ordering Provider: FLAQUITO PÉREZ Report Released Date/Time: May 06, 2024 05:41 PM Reporting Lab: [facility] TRN [facility] CARE SYSTEMUSETS [address] [address] Performing Lab: [facility] TRN [facility] SYSTEMUSE[address] [address] FOR[facility]LY [facility]OSPITALRCHOCTAW GENERAL HOSPITALN [facility] SYSTEMUSE [facility] CBC AND DIFF (AUTO) NRBC, ABS 0.00 10*3/uL 0.00 - 0.00 05/24 Specimen Type: BLOOD No comment entered. Ordering Provider: FLAQUITO PÉREZ Report Released Date/Time: May 06, 2024 05:41 PM Reporting Lab: [facility] TRN [facility] SYSTEMUSE[address] [address] Performing Lab: [facility]ITALRL [facility]ERN [facility] SYSTEMUSE[address] [address] FORMERLY [facility]OSPITALRCHOCTAW GENERAL HOSPITALN [facility]USE [facility] LIPID PANEL FASTING CHOLESTERO L [MASS/VOLU ME] IN SERUM OR PLASMA 183 mg/dL 05/24 Specimen Type: SERUM No comment entered. Ordering Provider: FLAQUITO PÉREZ Report Released Date/Time: May 06, 2024 05:41 PM Reporting Lab: [facility]MER[facility]OSPITALRCHOCTAW GENERAL HOSPITALN [place] [place] [address] Performing Lab: [place] [facility] [facility] [address] [address] [facility] [place] [facility] LIPID PANEL FASTING TRIGLYCERI DE [MASS/VOLU ME] IN SERUM OR PLASMA 115 mg/dL 0 - 150 05/24 Specimen Type: SERUM No comment entered. Ordering Provider: FLAQUITO PÉREZ Report Released Date/Time: May 06, 2024 05:41 PM Reporting Lab: [facility] [place] [facility] [address] [address] Performing Lab: [place] [facility] [facility] [address] [address] [facility]ITALRL WSTRN [place] [facility] LIPID PANEL FASTING CHOLESTERO L IN LDL [MASS/VOLU ME] IN SERUM OR PLASMA BY CALCULATIO N 120 mg/dL 0 - 129 05/24 Specimen Type: SERUM No comment entered. Ordering Provider: FLAQUITO PÉREZ Report Released Date/Time: May 06, 2024 05:41 PM Reporting Lab: [facility] [place] [facility] [address] [address] Performing Lab: [place] [facility] [facility] [address] [address] [facility] [place] [place] [facility] LIPID PANEL FASTING CHOLESTERO L.TOTAL/CH OLESTEROL IN HDL [MASS RATIO] IN SERUM OR PLASMA 4.6 05/24 Specimen Type: SERUM No comment entered. Ordering Provider: FLAQUITO PÉREZ Report Released Date/Time: May 06, 2024 05:41 PM Reporting Lab: [facility] [place] [facility] [address] [address] Performing Lab: [facility] [place] [facility] [address] [address] [facility] [place] [facility] LIPID PANEL FASTING CHOLESTERO L IN HDL [MASS/VOLU ME] IN SERUM OR PLASMA 40 mg/dL 40 - 60 05/24 Specimen Type: SERUM No comment entered. Ordering Provider: FLAQUITO PÉREZ Report Released Date/Time: May 06, 2024 05:41 PM Reporting Lab: [facility] [place] [facility] [address] [address] Performing Lab: [facility] [place] [facility] [address] [address] [facility] [place] [facility] LIVER FUNCTION PROTEIN [MASS/VOLU ME] IN SERUM OR PLASMA 7.1 g/dL 6.0 - 8.3 05/24 Specimen Type: SERUM No comment entered. Ordering Provider: FLAQUITO PÉREZ Report Released Date/Time: May 06, 2024 05:41 PM Reporting Lab: [facility] [place] [facility] [address] [address] Performing Lab: [facility] [place] [facility] [address] [address] [facility] [place] [facility] LIVER FUNCTION ALBUMIN [MASS/VOLU ME] IN SERUM OR PLASMA 3.5 g/dL 3.5 - 5.0 05/24 Specimen Type: SERUM No comment entered. Ordering Provider: FLAQUITO PÉREZ Report Released Date/Time: May 06, 2024 05:41 PM Reporting Lab: [facility] [place] [facility] [address] [address] Performing Lab: [facility] [place] [facility] [address] [address] [facility] [place] [facility] LIVER FUNCTION ALKALINE PHOSPHATAS E [ENZYMATIC ACTIVITY/V OLUME] IN SERUM OR PLASMA 233 U/L 40 - 150 05/24 H Specimen Type: SERUM No comment entered. Ordering Provider: FLAQUITO PÉREZ Report Released Date/Time: May 06, 2024 05:41 PM Reporting Lab: [facility] [place] [facility] [address] [address] Performing Lab: [facility] [place] [facility] [address] [address] [facility] [place] [facility] LIVER FUNCTION ASPARTATE AMINOTRANS FERASE [ENZYMATIC ACTIVITY/V OLUME] IN SERUM OR PLASMA 21 U/L 5 - 34 05/24 Specimen Type: SERUM No comment entered. Ordering Provider: FLAQUITO PÉREZ Report Released Date/Time: May 06, 2024 05:41 PM Reporting Lab: [facility] [place] [facility] [address] [address] Performing Lab: [facility] [place] [facility] [address] [address] [facility] [place] [facility] LIVER FUNCTION ALANINE AMINOTRANS FERASE [ENZYMATIC ACTIVITY/V OLUME] IN SERUM OR PLASMA 16 U/L 05/24 Specimen Type: SERUM No comment entered. Ordering Provider: FLAQUITO PÉREZ Report Released Date/Time: May 06, 2024 05:41 PM Reporting Lab: [place] [facility] [address] [address] Performing Lab: [place] [address] [address] [facility]ITALRL [facility] [place] [facility] LIVER FUNCTION BILIRUBIN. TOTAL [MASS/VOLU ME] IN SERUM OR PLASMA 0.4 mg/dL 0.2 - 1.2 05/24 Specimen Type: SERUM No comment entered. Ordering Provider: FLAQUITO PÉREZ Report Released Date/Time: May 06, 2024 05:41 PM Reporting Lab: [place] [facility] [address] [address] Performing Lab: [place] [address] [address] [facility] [place] [facility] TSH THYROTROPI N [UNITS/VOL UME] IN SERUM OR PLASMA 3.73 u[IU]/mL 0.35 - 5.00 05/24 Specimen Type: SERUM No comment entered. Ordering Provider: FLAQUITO PÉREZ Report Released Date/Time: May 06, 2024 05:41 PM Reporting Lab: [facility] [place] [facility] [address] [address] Performing Lab: [place] [address] [address] [facility] [facility] URIC ACID URATE [MASS/VOLU ME] IN SERUM OR PLASMA 4.6 mg/dL 3.5 - 7.2 05/24 Specimen Type: SERUM No comment entered. Ordering Provider: FLAQUITO PÉREZ Report Released Date/Time: May 06, 2024 05:41 PM Reporting Lab: [facility] [facility] [address] [address] Performing Lab: [place] [facility] [address] [address] [facility] [place] [facility] URINALYS IS CLEAN CATCH COLOR OF URINE Light-Ye llow 05/24 Specimen Type: URINE Comment: If Glucose = >500 and Ketones are positive, please alert the Physician. Ordering Provider: FLAQUITO PÉREZ Report Released Date/Time: May 06, 2024 05:41 PM Reporting Lab: [facility] [place] [address] [address] Performing Lab: [place] [facility] [address] [address] [facility] [place] [facility] URINALYS IS CLEAN CATCH APPEARANCE OF URINE Clear 05/24 Specimen Type: URINE Comment: If Glucose = >500 and Ketones are positive, please alert the Physician. Ordering Provider: FLAQUITO PÉREZ Report Released Date/Time: May 06, 2024 05:41 PM Reporting Lab: [facility] [place] [address] [address] Performing Lab: [place] [facility] [facility] [address] [address] [facility] [place] [facility] URINALYS IS CLEAN CATCH GLUCOSE [MASS/VOLU ME] IN URINE Normalmg /dL 05/24 Specimen Type: URINE Comment: If Glucose = >500 and Ketones are positive, please alert the Physician. Ordering Provider: FLAQUITO PÉREZ Report Released Date/Time: May 06, 2024 05:41 PM Reporting Lab: [facility] [place] [address] [address] Performing Lab: [facility] [facility] [address] [address] [facility] [place] [facility] URINALYS IS CLEAN CATCH KETONES [MASS/VOLU ME] IN URINE BY TEST STRIP NEGATIVE mg/dL 05/24 Specimen Type: URINE Comment: If Glucose = >500 and Ketones are positive, please alert the Physician. Ordering Provider: FLAQUITO PÉREZ Report Released Date/Time: May 06, 2024 05:41 PM Reporting Lab: [place] [facility] [address] [address] Performing Lab: [facility] [facility] [address] [address] [facility] [place] [facility] URINALYS IS CLEAN CATCH ERYTHROCYT ES [PRESENCE] IN URINE SEDIMENT BY LIGHT MICROSCOPY NEGATIVE mg/dL 05/24 Specimen Type: URINE Comment: If Glucose = >500 and Ketones are positive, please alert the Physician. Ordering Provider: FLAQUITO PÉREZ Report Released Date/Time: May 06, 2024 05:41 PM Reporting Lab: [facility] [place] [address] [address] Performing Lab: [place] [facility] [address] [address] [facility] [place] [facility] URINALYS IS CLEAN CATCH PROTEIN [MASS/VOLU ME] IN URINE BY TEST STRIP NEGATIVE mg/dL 05/24 Specimen Type: URINE Comment: If Glucose = >500 and Ketones are positive, please alert the Physician. Ordering Provider: FLAQUITO PÉREZ Report Released Date/Time: May 06, 2024 05:41 PM Reporting Lab: [place] [facility] [address] [address] Performing Lab: [place] [facility] [address] [address] [facility] [place] [facility] URINALYS IS CLEAN CATCH NITRITE [PRESENCE] IN URINE NEGATIVE mg/dL 05/24 Specimen Type: URINE Comment: If Glucose = >500 and Ketones are positive, please alert the Physician. Ordering Provider: FLAQUITO PÉREZ Report Released Date/Time: May 06, 2024 05:41 PM Reporting Lab: [facility] [place] [facility] [address] [address] Performing Lab: [facility] [place] [facility] [address] [address] [facility] [place] [facility] URINALYS IS CLEAN CATCH BILIRUBIN. TOTAL [PRESENCE] IN URINE NEGATIVE mg/dL 05/24 Specimen Type: URINE Comment: If Glucose = >500 and Ketones are positive, please alert the Physician. Ordering Provider: FLAQUITO PÉREZ Report Released Date/Time: May 06, 2024 05:41 PM Reporting Lab: [facility] [place] [facility] [address] [facility] [address] Performing Lab: [facility] [place] [facility] [address] [address] [facility] [place] [facility] URINALYS IS CLEAN CATCH SPECIFIC GRAVITY OF URINE BY REFRACTOME TRY 1.020 1.016 - 1.022 05/24 Specimen Type: URINE Comment: If Glucose = >500 and Ketones are positive, please alert the Physician. Ordering Provider: FLAQUITO PÉREZ Report Released Date/Time: May 06, 2024 05:41 PM Reporting Lab: [facility] [place] [facility] [address] [address] Performing Lab: [facility] [place] [facility] [address] [address] [facility] [facility] URINALYS IS CLEAN CATCH PH OF URINE BY TEST STRIP 5.5 5.0 - 9.0 05/24 Specimen Type: URINE Comment: If Glucose = >500 and Ketones are positive, please alert the Physician. Ordering Provider: FLAQUITO PÉREZ Report Released Date/Time: May 06, 2024 05:41 PM Reporting Lab: [facility] [place] [facility] [address] [address] Performing Lab: [facility] [place] [facility] [address] [address] [facility] [facility] URINALYS IS CLEAN CATCH UROBILINOG EN [MASS/VOLU ME] IN URINE BY TEST STRIP Normalmg /dL <2.0 - 2.0 05/24 Specimen Type: URINE Comment: If Glucose = >500 and Ketones are positive, please alert the Physician. Ordering Provider: FLAQUITO PÉREZ Report Released Date/Time: May 06, 2024 05:41 PM Reporting Lab: [facility] [place] [place] [facility] [address] [address] Performing Lab: [place] [facility] [address] [address] [facility]ITALRL TRN [facility]ENTERCHUSE [facility] URINALYS IS CLEAN CATCH LEUKOCYTE ESTERASE [PRESENCE] IN URINE BY TEST STRIP NEGATIVE 05/24 Specimen Type: URINE Comment: If Glucose = >500 and Ketones are positive, please alert the Physician. Ordering Provider: FLAQUITO PÉREZ Report Released Date/Time: May 06, 2024 05:41 PM Reporting Lab: [facility] [place] [place] [address] [address] Performing Lab: [facility]ITALRL W[facility]N [facility] SYSTEMUSETS [address] [address] [facility]ITALRL [facility]ERN [facility] SYSTEMUSE [facility] LIVER FUNCTION PROTEIN [MASS/VOLU ME] IN SERUM OR PLASMA 6.2 g/dL 6.0 - 8.3 01/04 Specimen Type: SERUM No comment entered. Ordering Provider: FLAQUITO PÉREZ Report Released Date/Time: Dec 31, 2023 11:06 AM Reporting Lab: [facility] [place] [facility] [address] [address] Performing Lab: [place] [address] [address] [facility] [place] [facility] LIVER FUNCTION ALBUMIN [MASS/VOLU ME] IN SERUM OR PLASMA 2.9 g/dL 3.5 - 5.0 01/04 L Specimen Type: SERUM No comment entered. Ordering Provider: FLAQUITO PÉREZ Report Released Date/Time: Dec 31, 2023 11:06 AM Reporting Lab: [facility] [facility] [address] [facility] [address] Performing Lab: [facility] [place] [facility] [address] [address] [facility] [place] [facility] LIVER FUNCTION ALKALINE PHOSPHATAS E [ENZYMATIC ACTIVITY/V OLUME] IN SERUM OR PLASMA 234 U/L 40 - 150 01/04 H Specimen Type: SERUM No comment entered. Ordering Provider: FLAQUITO PÉREZ Report Released Date/Time: Dec 31, 2023 11:06 AM Reporting Lab: [facility] [place] [facility] [address] [address] Performing Lab: [facility] [place] [facility] [address] [address] [facility] [place] [facility] LIVER FUNCTION ASPARTATE AMINOTRANS FERASE [ENZYMATIC ACTIVITY/V OLUME] IN SERUM OR PLASMA 18 U/L 5 - 34 01/04 Specimen Type: SERUM No comment entered. Ordering Provider: FLAQUITO PÉREZ Report Released Date/Time: Dec 31, 2023 11:06 AM Reporting Lab: [facility] [place] [facility] [address] [address] Performing Lab: [facility] [place] [facility] [address] [address] [facility] [place] [facility] LIVER FUNCTION ALANINE AMINOTRANS FERASE [ENZYMATIC ACTIVITY/V OLUME] IN SERUM OR PLASMA 16 U/L 01/04 Specimen Type: SERUM No comment entered. Ordering Provider: FLAQUITO PÉREZ Report Released Date/Time: Dec 31, 2023 11:06 AM Reporting Lab: [facility] [place] [facility] [address] [address] Performing Lab: [facility] [place] [facility] [address] [address] [facility] [place] [facility] LIVER FUNCTION BILIRUBIN. TOTAL [MASS/VOLU ME] IN SERUM OR PLASMA 0.4 mg/dL 0.2 - 1.2 01/04 Specimen Type: SERUM No comment entered. Ordering Provider: FLAQUITO PÉREZ Report Released Date/Time: Dec 31, 2023 11:06 AM Reporting Lab: [facility] [place] [facility] [address] [facility] [address] Performing Lab: [facility] [place] [facility] [address] [address] [facility] [place] [facility] URIC ACID URATE [MASS/VOLU ME] IN SERUM OR PLASMA 5.3 mg/dL 3.5 - 7.2 01/04 Specimen Type: SERUM No comment entered. Ordering Provider: FLAQUITO PÉREZ Report Released Date/Time: Dec 31, 2023 11:06 AM Reporting Lab: [facility] [place] [facility] [address] [facility] [address] Performing Lab: [facility] [place] [facility] [address] [address] [facility] [place] [facility] URINALYS IS CLEAN CATCH COLOR OF URINE Light-Ye llow 01/04 Specimen Type: URINE Comment: If Glucose = >500 and Ketones are positive, please alert the Physician. Ordering Provider: FLAQUITO PÉREZ Report Released Date/Time: Dec 31, 2023 11:06 AM Reporting Lab: [facility] [place] [facility] [address] [facility] [address] Performing Lab: [facility] [place] [facility] [address] [address] [facility] [place] [facility] URINALYS IS CLEAN CATCH APPEARANCE OF URINE Clear 01/04 Specimen Type: URINE Comment: If Glucose = >500 and Ketones are positive, please alert the Physician. Ordering Provider: FLAQUITO PÉREZ Report Released Date/Time: Dec 31, 2023 11:06 AM Reporting Lab: [facility] [place] [facility] [address] [facility] [address] Performing Lab: [facility] [place] [facility] [address] [facility] [address] [facility] [place] [facility] URINALYS IS CLEAN CATCH GLUCOSE [MASS/VOLU ME] IN URINE NEGATIVE mg/dL 01/04 Specimen Type: URINE Comment: If Glucose = >500 and Ketones are positive, please alert the Physician. Ordering Provider: FLAQUITO PÉREZ Report Released Date/Time: Dec 31, 2023 11:06 AM Reporting Lab: [facility] [place] [facility] [address] [facility] [address] Performing Lab: [facility] [place] [facility] [address] [address] [facility] [place] [facility] URINALYS IS CLEAN CATCH KETONES [MASS/VOLU ME] IN URINE BY TEST STRIP NEGATIVE mg/dL 01/04 Specimen Type: URINE Comment: If Glucose = >500 and Ketones are positive, please alert the Physician. Ordering Provider: FLAQUITO PÉREZ Report Released Date/Time: Dec 31, 2023 11:06 AM Reporting Lab: [facility] [place] [address] [address] Performing Lab: [facility] [place] [address] [address] [facility] [place] [facility] URINALYS IS CLEAN CATCH ERYTHROCYT ES [PRESENCE] IN URINE SEDIMENT BY LIGHT MICROSCOPY NEGATIVE mg/dL 01/04 Specimen Type: URINE Comment: If Glucose = >500 and Ketones are positive, please alert the Physician. Ordering Provider: FLAQUITO PÉREZ Report Released Date/Time: Dec 31, 2023 11:06 AM Reporting Lab: [facility] [place] [address] [address] Performing Lab: [facility] [place] [address] [address] [facility] [place] [facility] URINALYS IS CLEAN CATCH PROTEIN [MASS/VOLU ME] IN URINE BY TEST STRIP NEGATIVE mg/dL 01/04 Specimen Type: URINE Comment: If Glucose = >500 and Ketones are positive, please alert the Physician. Ordering Provider: FLAQUITO PÉREZ Report Released Date/Time: Dec 31, 2023 11:06 AM Reporting Lab: [facility] [place] [address] [address] Performing Lab: [facility] [place] [facility] [address] [facility] [facility] [address] [facility] [place] [facility] URINALYS IS CLEAN CATCH NITRITE [PRESENCE] IN URINE NEGATIVE mg/dL 01/04 Specimen Type: URINE Comment: If Glucose = >500 and Ketones are positive, please alert the Physician. Ordering Provider: FLAQUITO PÉREZ Report Released Date/Time: Dec 31, 2023 11:06 AM Reporting Lab: [facility] [place] [facility] [address] [facility] [address] Performing Lab: [facility] [place] [facility] [address] [facility] [address] [facility] [place] [facility] URINALYS IS CLEAN CATCH BILIRUBIN. TOTAL [PRESENCE] IN URINE NEGATIVE mg/dL 01/04 Specimen Type: URINE Comment: If Glucose = >500 and Ketones are positive, please alert the Physician. Ordering Provider: FLAQUITO PÉREZ Report Released Date/Time: Dec 31, 2023 11:06 AM Reporting Lab: [facility] [place] [facility] [address] [facility] [address] Performing Lab: [facility] [place] [facility] [address] [facility] [address] [facility] [place] [facility] URINALYS IS CLEAN CATCH SPECIFIC GRAVITY OF URINE BY REFRACTOME TRY 1.023 1.016 - 1.022 01/04 H Specimen Type: URINE Comment: If Glucose = >500 and Ketones are positive, please alert the Physician. Ordering Provider: FLAQUITO PÉREZ Report Released Date/Time: Dec 31, 2023 11:06 AM Reporting Lab: [facility] [place] [facility] [address] [facility] [address] Performing Lab: [facility] [place] [facility] [address] [facility] [address] [facility]ITALRSOU[facility]ENTERTRN [place] [facility] URINALYS IS CLEAN CATCH PH OF URINE BY TEST STRIP 6.5 5.0 - 9.0 01/04 Specimen Type: URINE Comment: If Glucose = >500 and Ketones are positive, please alert the Physician. Ordering Provider: FLAQUITO PÉREZ Report Released Date/Time: Dec 31, 2023 11:06 AM Reporting Lab: [facility] [place] [facility] [address] [address] Performing Lab: [facility] [place] [facility] [address] [address] [facility] [place] [facility] URINALYS IS CLEAN CATCH UROBILINOG EN [MASS/VOLU ME] IN URINE BY TEST STRIP <2.0mg/d L <2.0 - 2.0 01/04 Specimen Type: URINE Comment: If Glucose = >500 and Ketones are positive, please alert the Physician. Ordering Provider: FLAQUITO PÉREZ Report Released Date/Time: Dec 31, 2023 11:06 AM Reporting Lab: [facility] [place] [facility] [address] [address] Performing Lab: [facility] [place] [facility] [address] [address] [facility] [place] [facility] URINALYS IS CLEAN CATCH LEUKOCYTE ESTERASE [PRESENCE] IN URINE BY TEST STRIP NEGATIVE 01/04 Specimen Type: URINE Comment: If Glucose = >500 and Ketones are positive, please alert the Physician. Ordering Provider: FLAQUITO PÉREZ Report Released Date/Time: Dec 31, 2023 11:06 AM Reporting Lab: [facility] [place] [facility] [address] [address] Performing Lab: [facility] [place] [facility] [address] [address] [facility] [place] [facility] Vital Signs Combined list of inpatient and outpatient Vital Signs from Department of Defense and Veterans Affairs, ranging from 12 months to all on record, depending upon the facility. Vital Sign Value Date Comments Source SYSTOLIC BLOOD PRESSURE 110 05/30/20 24 15:22:17 [facility] [place] [facility] DIASTOLIC BLOOD PRESSURE 72 024 15:22:17 [facility] [place] [facility] PULSE OXIMETRY 96 05/30/2024 15:22:17 [facility] [place] [facility] WEIGHT 184.5 05/30/2024 15:22:17 [facility] [place] [facility] BMI 25kg/m2 05/30/2024 15:22:17 [facility] [place] [facility] PAIN 0 05/30/2024 15:22:17 [facility] [facility] HEIGHT 72 05/30/2024 15:22:17 [facility] TEMPERATURE 97.9 05/30/2024 15:22:17 [facility] PULSE 99 05/30/2024 15:22:17 [facility] RESPIRATION 16 05/30/2024 15:22:17 [facility] SYSTOLIC BLOOD PRESSURE 107 01/11/20 24 10:00:31 [facility] DIASTOLIC BLOOD PRESSURE 70 024 10:00:31 [facility] PULSE OXIMETRY 96 01/11/2024 10:00:31 [facility] WEIGHT 186 01/11/2024 10:00:31 [facility] BMI 25kg/m2 01/11/2024 10:00:31 [facility] PAIN 0 01/11/2024 10:00:31 [facility] HEIGHT 72 01/11/2024 10:00:31 [facility] TEMPERATURE 98.1 01/11/2024 10:00:31 [facility] PULSE 97 01/11/2024 10:00:31 [facility] RESPIRATION 16 01/11/2024 10:00:31 [facility] SYSTOLIC BLOOD PRESSURE 118 10/08/19 24 15:19:11 [facility] DIASTOLIC BLOOD PRESSURE 80 024 15:19:11 [facility] PULSE OXIMETRY 99% 10/08/2023 15:19:11 [facility] WEIGHT 189 10/08/2023 15:19:11 [facility] BMI 26kg/m2 10/08/2023 15:19:11 [facility] PAIN 0 10/08/2023 15:19:11 [facility] TEMPERATURE 97.5 10/08/2023 15:19:11 [facility] PULSE 82 10/08/2023 15:19:11 [facility] RESPIRATION 16 10/08/2023 15:19:11 [facility] Encounters Combined list of: 1) Encounters from Department of Veterans Affairs facilities going back up to thelast 18 months. 2) Encounters from the Department of Defense facilities going back up to 280 months. Location Location Details Encounter Type Encounter Number Reason For Visit Attending Provider ADM Date DC Date Status Disposition Source [facility] Outpatient Encounter [id number] 03/13 [facility] Out[facility]counter [id number] 03/15 [facility] Out[facility]counter [id number] 03/16 [facility] Out[facility]counter [id number] 03/16 [facility] Out[facility]counter [id number] 03/18 [facility] Out[facility]counter [id number] 03/19 [facility] Outpatient [facility]counter [id number]Z [address] 03/24 [facility] Out[facility] Encounter [id number] 03/24 [facility] Out[facility]counter [id number] 03/25 [facility] Out[facility]counter [id number] 03/26 [facility] Out[facility]counter [id number] 03/29 [facility] Out[facility] Encounter [id number] 03/30 [facility] Out[facility]counter [id number] 03/30 [facility] Out[facility]counter [id number] 04/01 [facility] Out[facility] Encounter [id number] 04/08 [facility] Out[facility]counter [id number] 04/12 [facility] Out[facility] Encounter [id number] 04/13 [facility] Out[facility] Encounter [id number] 04/15 [facility] Out[facility]counter [id number] 04/15 [facility] Out[facility]counter [id number] 04/16 [facility] Out[facility] Encounter [id number] 04/18 [facility] [place] [id number] Diagnos is: ICD-10- CM 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
PALOMA,CHR ISTINE F 04/21 [facility] (89GE) [facility] (632GE) QNHP OL DIG ASSMT&MGMT 5-10 [id number] Diagnos is: ICD-10- CM R63.4 Abnorma l weight loss
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
CECILIA PÉREZ RD 04/23 [facility] Out[facility] Encounter [id number] 04/26 [facility] Outpatient Encounter [id number] 04/28 [facility] Outpatient Encounter [id number] 04/29 [facility] Outpatient Encounter [id number] 04/30 [facility] Out[facility] Encounter [id number] 04/30 [facility] QNHP OL DIG ASSMT&MGMT 11- [id number] Diagnos is: ICD-10- CM 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
MONALISA FANG 05/05 [facility] Outpatient Encounter [id number] 05/20 [facility] Out[facility] Encounter [id number] 05/20 [facility] Out[facility] Encounter [id number] 05/24 [facility] Outpatient Encounter [id number] 05/31 [facility] Out[facility] Encounter [id number] 06/01 [facility] Outpatient Encounter [id number] 06/14 [facility] Outpatient Encounter [id number] 06/17 [facility] Out[facility] Encounter [id number] 06/21 [facility] OFFICE O/P EST SF 10-19 MIN [id number] Diagnos is: ICD-10- CM 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
CECILIA PÉREZ RD 06/22 [facility] Out[facility] Encounter [id number] 06/24 [facility] Out[facility] Encounter [id number] 06/29 [facility] IMMUNIZATI ON ADMIN [id number] Diagnos is: ICD-10- CM Z23 Encount er for immuniz ation<b r/> CECILIA PÉREZ RD 06/29 [facility] Out[facility] Encounter [id number] 07/05 [facility] Outpatient Encounter [id number] 07/08 [facility] Outpatient Encounter [id number] 07/13 [facility] Out[facility] Encounter [id number] 07/15 [facility] Out[facility] Encounter [id number] 07/19 [facility] Out[facility] Encounter [id number] 07/22 [facility] OFFICE O/P EST LOW 20-29 MIN [id number] Diagnos is: ICD-10- CM R73.01 Impaire d fasting glucose
Britta VIDALES AVID 07/27 [facility] Out[facility] Encounter [id number] 07/28 [facility] Out[facility] Encounter [id number] 08/02 [facility] Out[facility] Encounter [id number] 08/06 [facility] DIABETIC CUSTOM MOLDED SHOE [id number] Diagnos is: ICD-10- CM Q66.70 Congeni kriss pes cavus, unspeci fied foot
DOMINIC HARMON YUNIOR 08/16 [facility] Out[facility] Encounter [id number] 08/17 [facility] Out[facility] Encounter [id number] 08/30 [facility] Out[facility] Encounter [id number] 09/02 [facility] Out[facility] Encounter [id number] 09/08 [facility] Out[facility] Encounter [id number] 09/29 [facility] Outpatient Encounter [id number] 10/07 [facility] OFFICE O/P EST SF 10 MIN [id number] Diagnos is: ICD-10- CM 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
CECILIA PÉREZ RD D 10/08 [facility] Out[facility] Encounter [id number] 10/11 [facility] Out[facility] Encounter [id number] 10/14 [facility] Out[facility] Encounter [id number] 11/10 [facility] Out[facility] Encounter [id number] 11/16 [facility] Out[facility] Encounter [id number] 11/23 [facility] Out[facility] Encounter [id number] 11/25 [facility] Out[facility] Encounter [id number] 12/06 [facility] Out[facility] Encounter [id number] 12/15 [facility] Outpatient Encounter [id number] 12/16 [facility] Out[facility] Encounter [id number] 12/20 [facility] Out[facility] Encounter [id number] 01/02 [facility] Out[facility] Encounter [id number] 01/10 [facility] OFFICE O/P EST LOW 20 MIN [id number] Diagnos is: ICD-10- CM 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
CECILIA PÉREZ RD D 01/10 [facility] COMPRE [place]PH [place] PT 1 [id number] Diagnos is: ICD-10- CM H25.813 Combine d forms of age-rel ated catarac t, bilater al
NICOLE,KALEB H B 01/16 [facility] FIT SPECTACLES MONOFOCAL [id number] Diagnos is: ICD-10- CM Z46.0 Encount er for fit/adj st of spectac les and contact lenses< br/> MERMELBA,KALEB H B 01/16 [facility] Outpatient Encounter [id number] 02/01 [facility] Out[facility] Encounter [id number] 02/09 [facility] Outpatient Encounter [id number] 03/06 [facility] Out[facility] Encounter [id number] 03/19 [facility] Outpatient [facility]counter [id number] 03/27 [facility] Out[facility] Encounter [id number] 04/05 [facility] Outpatient Encounter [id number] 04/13 [facility] Outpatient Encounter [id number] 05/08 [facility] Out[facility] Encounter [id number] 05/16 [facility] Out[facility]counter [id number] 05/18 [facility] Outpatient Encounter [id number]/24 [facility] OFFICE O/P EST SF 10 MIN [id number] Diagnos is: ICD-10- CM 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
CECILIA PÉREZ RD 05/30 [facility] Out[facility] Encounter [id number] 06/08 [facility] Out[facility] Encounter [id number] 06/15 [facility] Outpatient Encounter [id number] 1.06/19 [facility] Outpatient Encounter [id number] [facility] Outpatient Encounter [id number] 06/29 [facility] OFFICE O/P EST LOW 20 MIN [id number] 1. Diagnos is: ICD-10- CM Q66.70 Congeni kriss pes cavus, unspeci fied foot
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
KATHARINE GREWAL TT LINO 08/16 [facility] Outpatient Encounter [id number] [facility] Outpatient Encounter [id number] 1.08/30 [facility] Social History Combined list of available smoking, tobacco, and other social history from Department of Defense and Veterans Affairs facilities. Social History Type Response Date Comment Sourc e Tobacco smoking status [facility] VA-TOBACCO NEVER USED 01/11/2024 [facility] History of tobacco use VA-TOBACCO NEVER USED 01/27/2023 [facility] History of tobacco use VA-TOBACCO NEVER USED 01/06[facility]20[facility] [place] [facility] History of tobacco use AL-TOBACCO NEVER USED 12/31/2020 [facility] [place] [facility] History of tobacco use AL-TOBACCO NEVER USED 12/27/2019 [facility] [place] [facility] History [facility] tobacco use AL-TOBACCO NEVER USED 06/30/2018 [facility] [place] [facility] History of tobacco use LIFETIME NON-TOBACCO USER 12/23[facility] [place] History of tobacco use LIFETIME NON-TOBACCO USER 12/22/2016 [facility] [place] [facility] History of tobacco use LIFETIME NON-TOBACCO USER 12/24/2015 [facility] [place] [facility] History of tobacco use LIFETIME NON-SMOKER 06/19/2004 [facility] History of tobacco use LIFETIME NON-SMOKER 06/19/2004 [facility] Plan of Care List of future care activities from [facility] facilities. Additional future care activities may be listed in the Assessment and Plan section. Date/Time Care Activity Care Activity Detail Facili ty 10/18/2024 AMBULATORY - MEDICINE AMBULATORY [facility]IC[facility] 02/14/2025 AMBULATORY - MEDICINE AMBULATORY - [facility] 08/04/2024 Consult Order [facility]P ULMONARY Cons Rental Counter Clerk's Choice [facility] Advance Directives List of completed, amended, or rescinded Advance Directives on record at [facility] facilities. An actual copy of the Directive is not included. Date Advance Directive Provider Source 05/20/2006 [facility]
--- OUTSIDE RECORDS SUMMARY | 2024-09-12 23:09 | XMS_ITS ---
Author Name [facility] [place] [facility] [place] Organization [facility] [place] Address [address] [place] [id number] Care Team Providers Care Barrel Maker Name Role Phone OLIVA PEGUERO Primary Care [...] Name Patient's Relationship to Policy Root TOMER ROBLES OF [facility] [employer] GE Apr 03, 2009 [id number] BLANCHE, JANET SPOUSE BCBS [facility] BLUE* Apr 03, 2009 [id number] BLANCHE, JANET SPOUSE BCBS [facility] [employer] GE Apr 03, 2009 [id number] FRANCIS MANCIA SPOUSE [employer] ([id number]) PRESCRIPT ION L4TA* Apr 03, 2009 L4TA [id number] FRANCIS MANCIA SPOUSE [employer] ([id number]) PRESCRIPT ION L4TA* Apr 03, 2009 L4TA [id number] FRANCIS MANCIA SPOUSE [employer] ([id number]) PRESCRIPT ION Apr 03, 2009 L4TA [id number] FRANCIS MANCIA SPOUSE MEDICARE (WNR) MEDICARE (M) PART B Jun 04, 2020 PART B [id number] RAÚL MANCIA PATIENT MEDICARE (WNR) MEDICARE (M) PART A Oct 04, 2006 PART A [id number] RAÚL MANCIA PATIENT MEDICARE (WNR) MEDICARE (M) PART A Oct 04, 2006 PART A [id number] RAÚL MANCIA PATIENT Selected Encounter This section includes the information on record at [place] for the Encounter. Date/Time Encounter Type Encounter Description Reason Pro vider Source Oct 14, 2023 01:16 PM Outpatient Encounter PRIMARY CARE/MEDICINE IHE Encounter Template Text not used by MS Plan of Treatment: Future Appointments (+ 6 months) and Future Tests (+/- 45 days) The Plan of Treatment section includes future care activities for the patient from all [place] treatmentfacilities. This section includes future appointments and future orders which are active, pending or scheduled. Future Appointments This section includes appointments that were scheduled to occur 6 months from the date of the Encounter, up to a maximum of 20 appointments. The data comes from all [facility]. Appointment Date/Time Appointment Type Appointme nt Facility Name Dec 16, 2023 11:00 AM [facility] Jan 11, 2024 10:00 AM [facility] [place] [facility] Jan 17, 2024 07:30 AM AMBULATORY MEDICINE [facility] Active, Pending, and Scheduled Orders This section includes a listing of several types of active, pending, and scheduled orders, including clinic medications orders, diagnostic test orders, procedure orders and consult orders; where the start date of the order is 45 days before the date of the Encounter or 45 days after the date of theEncounter. The data comes from all [place] treatment [facility]. Test Date/Time Test Type Test Details Facility Name Oct 01, 2023 12:00 AM Laboratory - Chemistry Order URINALYSIS CLEAN CATCH URINE SP [facility] Lab Results: +/- 30 days of the encounter This section includes the Chemistry and Hematology Lab Results on record with MS for the patient. Radiology Reports and Pathology Reports are provided separately, in subsequent sections. Lab Results This section contains the Chemistry/Hematology Results that were resulted 30 days before or 30 daysafter the date of the Encounter. Date/Time Source Result Type Result - Unit Interpretation Reference Range Comment Oct 01, 2023 07:31 AM [facility] URIC ACID Specimen Type: SERUM No comment entered. Ordering Provider: OLIVA PEGUERO Report Released Date/Time: Sep 26, 2023 06:56 PM Reporting Lab: [address] [address] Performing Lab: [address] [address] URIC ACID 5.6 mg/dL 3.5-7.2 Oct 01, 2023 07:31 AM [facility] TSH Specimen Type: SERUM No comment entered. Ordering Provider: OLIVA PEGUERO Report Released Date/Time: Sep 26, 2023 06:56 PM Reporting Lab: [facility] [address] [facility] [address] Performing Lab: [address] [address] TSH 1.01 u[IU]/mL 0.35-5.00 Oct 01, 2023 07:31 AM [facility] LIPID PANEL FASTING Specimen Type: SERUM No comment entered. Ordering Provider: OLIVA PEGUERO Report Released Date/Time: Sep 26, 2023 06:56 PM Reporting Lab: [address] [address] Performing Lab: [address] [address] CHOLESTEROL 183 mg/dL TRIGLYCERIDE 104 mg/dL 0-150 LDL calculated 114 mg/dL 0-129 CHOL/HDL 3.8 HDL CHOLESTEROL 48 mg/dL 40-60 Oct 01, 2023 07:31 AM [facility] LIVER FUNCTION Specimen Type: SERUM No comment entered. Ordering Provider: OLIVA PEGUERO Report Released Date/Time: Sep 26, 2023 06:56 PM Reporting Lab: [facility] [address] [facility] [address] Performing Lab: [address] [address] PROTEIN,TOTAL 6.4 g/dL 6.0-8.3 ALBUMIN 3.7 g/dL 3.5-5.0 ALKALINE PHOSPHATASE 130 U/L 40-150 AST 16 U/L 5-34 ALT 12 U/L BILIRUBIN, TOTAL 0.4 mg/dL 0.2-1.2 Oct 01, 2023 07:31 AM [facility] BASIC METABOLIC PANEL (fasting) Specimen Type: SERUM No comment entered. Ordering Provider: OLIVA PEGUERO Report Released Date/Time: Sep 26, 2023 06:56 PM Reporting Lab: [facility] [address] [facility] [address] Performing Lab: [facility] [address] [facility] [address] UREA NITROGEN 25 mg/dL 7-25 GLUCOSE 105 mg/dL H 65-100 SODIUM 139 mmol/L 135-145 POTASSIUM 4.3 mmol/L 3.5-5.0 CHLORIDE 106 mmol/L 100-110 CO2 23 meq/L 20-30 CREATININE, Serum 0.85 mg/dL 0.50-1.40 eGFR(CKD-EPI 2020) 89 mL/min >60 Oct 01, 2023 07:31 AM [facility] CBC AND DIFF (AUTO) Specimen Type: BLOOD No comment entered. Ordering Provider: OLIVA PEGUERO Report Released Date/Time: Sep 26, 2023 06:56 PM Reporting Lab: [facility] [address] [facility] [address] Performing Lab: [address] [address] WBC 6.28 10*3/uL 4.50-11.00 RBC 4.75 10*6/uL 4.23-5.66 HGB 12.0 g/dL L 12.8-17 HCT 38.4 L 39.2-50.4 MCV 80.8 fL L 82-99 MCHC 31.3 g/dL 30.8-35.1 PLT 190 10*3/uL 140-360 RDW-CV 15.2 12.0-16.0 [place], Abs 0.56 10*3/uL 0.30-1.10 MCH 25.3 pg L 26.2-32.6 Neut % 73.1 43.7-75.8 Lymph % 13.5 L 14.0-42.3 [place] % 8.9 5.1-13.7 Eos % 3.7 0.4-6.8 Baso % 0.5 0.1-2.0 Neut, Abs 4.59 10*3/uL 2.20-7.60 Lymph, Abs 0.85 10*3/uL L 1.00-3.20 Eos, Abs 0.23 10*3/uL 0.03-0.44 Baso, Abs 0.03 10*3/uL 0.01-0.13 Immature Gran % 0.3 0.0-0.7 Immature Gran, Abs 0.02 10*3/uL 0.00-0.06 Social History: Smoking Status (Most current) and Tobacco Use (All prior to encounter date) This section includes the most current, and the historical, smoking and tobacco- related health factors from the [place] facility where the Encounter took place. Current Smoking Status This section includes the most current smoking, or tobacco-related health factor, from the [place] facility where the Encounter took place. Date/Time Current Smoking Status Comment Ronald vaz Jan 27, 2023 10:00 AM [facility]TOBACCO [facility] Tobacco Use History This section includes a history of the smoking, or tobacco-related health factors, that were collected on or before the date of the Encounter. The data comes from the [place] facility where the Encounter took place. Date/Time Smoking Status/Tobacco Use Comment F otis Jan 06, 2022 09:00 AM VA-TOBACCO NEVER USED [facility] Dec 31, 2020 08:00 AM VA-TOBACCO NEVER USED [place] [facility] [place] [facility] Dec 27, 2019 09:48 AM VA-TOBACCO NEVER USED [facility] [place] [facility] Jun 30, 2018 08:41 AM VA-TOBACCO NEVER USED [facility] [place] [facility] Dec 23, 2017 07:46 AM LIFETIME NON-TOBACCO USER [facility] [place] [facility] Dec 22, 2016 08:06 AM LIFETIME NON-TOBACCO USER [facility] [place] [facility] Dec 24, 2015 08:36 AM LIFETIME NON-TOBACCO USER [facility] [place] [facility] Jun 19, 2004 01:52 PM LIFETIME NON-SMOKER [facility] [place] [place] [facility] Jun 19, 2004 01:52 PM LIFETIME NON-TOBACCO USER [facility] [place] [facility] Jun 19, 2004 01:34 PM LIFETIME NON-SMOKER [facility] [place] [facility] Jun 19, 2004 01:34 PM LIFETIME NON-TOBACCO USER [facility] [place] [facility] Advance Directives: All historical and current Section Date Range: From patient's date of to the date document was created. This section includes ALL of a patient's completed or amended [place] Advance and Rescinded Directives. The entries below indicate that a directive exists for the patient, but an actual copy is not included with this document. The data comes from all [place] facilities. Date Advance Directives Provider Source May 20, 2006 ADVANCE DIRECTIVE MARINA FAJARDO [place] [facility] [place] [facility] Encounter Notes: All associated encounter notes This section contains the clinical notes associated to the Encounter. Date/Time Encounter Note(s) Provider Source Oct 14, 2023 01:16 PM NONVA CONSULT: LOCAL TITLE: MD/OUTSIDE CONSULT REPORT SUMMARY STANDARD TITLE: NONVA CONSULT DATE OF NOTE: OCT 14, 2023@13:16 ENTRY DATE: OCT 14, 2023@13:16:41 AUTHOR: OLIVA PEGUERO EXP COSIGNER: URGENCY: STATUS: COMPLETED 10-07-[address] Amin Radiation oncology [facility] Chief complaint: Follow-up esophageal cancer Completed radiation therapy. Getting immunotherapy. Plan: Follow-up 4 months /es/ Oliva Peguero MD Staff Physician Signed: 10/14/2023 13:16 PEGUERO[facility]OLIVA CABRALRL [facility]
--- OUTSIDE RECORDS SUMMARY | 2024-09-12 23:09 | XMS_ITS | Encounter Summary ---
Author Name [facility] [place] Organization [place] Address [address] [place] [address] Care Team Providers Care Biofuels Production Associate Name Role Phone OLIVA PÉREZ Primary Care Provider Unavailabl e Insurance Providers: [...] Relationship to Policy Root TOMER ROBLES OF [facility] [employer] GE Apr 03, 2009 [id number] BLANCHE, JANET SPOUSE [facility]* Apr 03, 2009 [id number] BLANCHE, JANET SPOUSE BCBS [facility] [employer] GE Apr 03, 2009 [id number] FRANCIS MANCIA SPOUSE [employer] ([id number]) PRESCRIPT ION L4TA* Apr 03, 2009 L4TA [id number] FRANCIS MANCIA SPOUSE [employer] ([id number]) PRESCRIPT ION L4TA* Apr 03, 2009 L4TA [id number] FRANCIS MANCIA SPOUSE [employer] ([id number]) PRESCRIPT ION Apr 03, 2009 L4TA [id number] FRANCIS MANCIA SPOUSE MEDICARE (WNR) MEDICARE (M) PART B Jun 04, 2020 PART B [id number] RAÚL MANCIA PATIENT MEDICARE (WNR) MEDICARE (M) PART A Oct 04, 2006 PART A [id number] [phone] RAÚL MANCIA PATIENT MEDICARE (WNR) MEDICARE (M) PART A Oct 04, 2006 PART A [id number] RAÚL MANCIA PATIENT Selected Encounter This section includes the information on record at CT for the Encounter. Date/Time Encounter Type Encounter Description Reason Pro vider Source Sep 29, 2023 02:14 PM Outpatient Encounter PRIMARY CARE/MEDICINE IHE Encounter Template Text not used by CT Plan of Treatment: Future Appointments (+ 6 months) and Future Tests (+/- 45 days) The Plan of Treatment section includes future care activities for the patient from all CT treatmentfacilities. This section includes future appointments and future orders which are active, pending or scheduled. Future Appointments This section includes appointments that were scheduled to occur 6 months from the date of the Encounter, up to a maximum of 20 appointments. The data comes from all CT treatment facilities. Appointment Date/Time Appointment Type Appointme nt Facility Name Oct 07, 2023 10:30 AM AMBULATORY - MEDICINE [facility] [place] [facility] Oct 08, 2023 03:30 PM AMBULATORY - MEDICINE [facility] [place] [facility] Dec 16, 2023 11:00 AM AMBULATORY - MEDICINE [facility] [place] [facility] Jan 11, 2024 10:00 AM AMBULATORY - MEDICINE [facility] [place] [facility] Jan 17, 2024 07:30 AM AMBULATORY MEDICINE [facility] [place] [facility] Active, Pending, and Scheduled Orders This section includes a listing of several types of active, pending, and scheduled orders, including clinic medications orders, diagnostic test orders, procedure orders and consult orders; where the start date of the order is 45 days before the date of the Encounter or 45 days after the date of theEncounter. The data comes from all CT treatment facilities. Test Date/Time Test Type Test Details Facility Name Oct 01, 2023 12:00 AM Laboratory - Chemistry Order URINALYSIS CLEAN CATCH URINE SP [facility] Lab Results: +/- 30 days of the encounter This section includes the Chemistry and Hematology Lab Results on record with CT for the patient. Radiology Reports and Pathology Reports are provided separately, in subsequent sections. Lab Results This section contains the Chemistry/Hematology Results that were resulted 30 days before or 30 daysafter the date of the Encounter. Date/Time Source Result Type Result - Unit Interpretation Reference Range Comment Oct 01, 2023 07:31 AM [facility] URIC ACID Specimen Type: SERUM No comment entered. Ordering Provider: OLIVA PÉREZ Report Released Date/Time: Sep 26, 2023 06:56 PM Reporting Lab: [address] [address] Performing Lab: [address] [address] URIC ACID 5.6 mg/dL 3.5-7.2 Oct 01, 2023 07:31 AM [facility] BASIC METABOLIC PANEL (fasting) Specimen Type: SERUM No comment entered. Ordering Provider: OLIVA PÉREZ Report Released Date/Time: Sep 26, 2023 06:56 PM Reporting Lab: [address] [address] Performing Lab: [address] [address] UREA NITROGEN 25 mg/dL 7-25 GLUCOSE 105 mg/dL H 65-100 SODIUM 139 mmol/L 135-145 POTASSIUM 4.3 mmol/L 3.5-5.0 CHLORIDE 106 mmol/L 100-110 CO2 23 meq/L 20-30 CREATININE, Serum 0.85 mg/dL 0.50-1.40 eGFR(CKD-EPI 2020) 89 mL/min >60 Oct 01, 2023 07:31 AM [facility] TSH Specimen Type: SERUM No comment entered. Ordering Provider: OLIVA PÉREZ Report Released Date/Time: Sep 26, 2023 06:56 PM Reporting Lab: [facility] [address] [facility] [address] Performing Lab: [address] [address] TSH 1.01 u[IU]/mL 0.35-5.00 Oct 01, 2023 07:31 AM [facility] LIVER FUNCTION Specimen Type: SERUM No comment entered. Ordering Provider: OLIVA PÉREZ Report Released Date/Time: Sep 26, 2023 06:56 PM Reporting Lab: [address] [address] Performing Lab: [address] [address] PROTEIN,TOTAL 6.4 g/dL 6.0-8.3 ALBUMIN 3.7 g/dL 3.5-5.0 ALKALINE PHOSPHATASE 130 U/L 40-150 AST 16 U/L 5-34 ALT 12 U/L BILIRUBIN, TOTAL 0.4 mg/dL 0.2-1.2 Oct 01, 2023 07:31 AM [facility] LIPID PANEL FASTING Specimen Type: SERUM No comment entered. Ordering Provider: OLIVA PÉREZ Report Released Date/Time: Sep 26, 2023 06:56 PM Reporting Lab: [address] [address] Performing Lab: [address] [address] CHOLESTEROL 183 mg/dL TRIGLYCERIDE 104 mg/dL 0-150 LDL calculated 114 mg/dL 0-129 CHOL/HDL 3.8 HDL CHOLESTEROL 48 mg/dL 40-60 Oct 01, 2023 07:31 AM [facility] CBC AND DIFF (AUTO) Specimen Type: BLOOD No comment entered. Ordering Provider: OLIVA PÉREZ Report Released Date/Time: Sep 26, 2023 06:56 PM Reporting Lab: [address] [address] Performing Lab: [facility] [address] [facility] [address] WBC 6.28 10*3/uL 4.50-11.00 RBC 4.75 10*6/uL 4.23-5.66 HGB 12.0 g/dL L 12.8-17 HCT 38.4 L 39.2-50.4 MCV 80.8 fL L 82-99 MCHC 31.3 g/dL 30.8-35.1 PLT 190 10*3/uL 140-360 RDW-CV 15.2 12.0-16.0 [place], Abs 0.56 10*3/uL 0.30-1.10 MCH 25.3 pg L 26.2-32.6 Neut % 73.1 43.7-75.8 Lymph % 13.5 L 14.0-42.3 [place] % 8.9 5.1-13.7 Eos % 3.7 0.4-6.8 [...] and tobacco- related health factors from the CT facility where the Encounter took place. Current Smoking Status This section includes the most current smoking, or tobacco-related health factor, from the [place] facility where the Encounter took place. Date/Time Current Smoking Status Comment Facil ity Jan 27, 2023 10:00 AM VA-TOBACCO NEVER USED [facility] Tobacco Use History This section includes a history of the smoking, or tobacco-related health factors, that were collected on or before the date of the Encounter. The data comes from the CT facility where the Encounter took place. Date/Time Smoking Status/Tobacco Use Comment F acility Jan 06, 2022 09:00 AM VA-TOBACCO NEVER USED [facility] [place] [facility] Dec 31, 2020 08:00 AM VA-TOBACCO NEVER USED [facility] [place] [facility] Dec 27, 2019 09:48 AM VA-TOBACCO NEVER USED [facility] [place] [facility] Jun 30, 2018 08:41 AM VA-TOBACCO NEVER USED [facility] [place] [facility] Dec 23, 2017 07:46 AM LIFETIME NON-TOBACCO USER [facility] [place] [facility] Dec 22, 2016 08:06 AM LIFETIME NON-TOBACCO USER [facility] [place] [facility] Dec 24, 2015 08:36 AM LIFETIME NON-TOBACCO USER [facility] [place] [facility] Jun 19, 2004 01:52 PM LIFETIME NON-SMOKER [facility] [place] [facility] Jun 19, 2004 01:52 PM LIFETIME NON-TOBACCO USER [facility] [place] [facility] Jun 19, 2004 01:34 PM LIFETIME NON-SMOKER [facility] [place] [facility] Jun 19, 2004 01:34 PM LIFETIME NON-TOBACCO USER [facility] [place] [facility] Advance Directives: All historical and current Section Date Range: From patient's date of to the date document was created. This section includes ALL of a patient's completed or amended CT Advance and Rescinded Directives. The entries below indicate that a directive exists for the patient, but an actual copy is not included with this document. The data comes from all CT facilities. Date Advance Directives Provider Source May 20, 2006 ADVANCE DIRECTIVE MARINA FAJARDO [facility] [place] [facility] Encounter Notes: All associated encounter notes This section contains the clinical notes associated to the Encounter. Date/Time Encounter Note(s) Provider Source Sep 29, 2023 02:14 PM ADMINISTRATIVE NOTE: LOCAL TITLE: ADMINISTRATIVE NOTE STANDARD TITLE: ADMINISTRATIVE NOTE DATE OF NOTE: SEP 29, 2023@14:14 ENTRY DATE: SEP 29, 2023@14:14:18 AUTHOR: BRAIN ROBERTSON EXP COSIGNER: URGENCY: STATUS: COMPLETED Reminder call for your upcoming Primary Care Appointment and the need for preparations prior to your upcoming appt. [ ] Location in Building [facility] [X] Fasting labs [ ] Lab work within 30 days [ ] Urine [ ] No Preparation Action taken: [ ] Called , left voice message [ ] Called , unable to leave voice mail [X] Spoke to /care services manager to remind them of upcoming appt/preparations Upcoming Appointments: 10/08/2023 15:30 CWM/NO/PACT 2 02/25/2024 10:30 NHM/OPTOMETRY/[place] 07/27/2024 08:00 CWM/NO/PODIATRY A /es/ BRAIN ROBERTSON AMSA Signed: 09/29/2023 14:14 BRAIN ROBERTSON [facility] [place] [facility]
--- OUTSIDE RECORDS SUMMARY | 2024-09-12 23:10 | XMS_ITS | Encounter Summary ---
Author Name [facility] [place] Address [address] [place] [id number] Care Team Providers Care Operational Risk Consultant Name Role Phone OLIVA PÉREZ Primary Care [...] Relationship to Policy Root TOMER BOWMANBS OF [facility] [employer] GE Apr 03, 2009 [id number] FRANCIS MANCIA SPOUSE [facility]* Apr 03, 2009 [id number] BLANCHE, JANET SPOUSE BCBS [facility] [employer] GE Apr 03, 2009 [id number] FRANCIS MANCIA SPOUSE [employer] ([id number]) PRESCRIPT ION L4TA* Apr 03, 2009 L4TA [id number] FRANCIS MANCIA SPOUSE [employer] ([id number]) PRESCRIPT ION L4TA* Apr 03, 2009 L4TA [id number] FRANCIS MANCIA SPOUSE [employer] ([id number]) PRESCRIPT ION Apr 03, 2009 L4TA [id number] FRANCIS MANCIA SPOUSE MEDICARE (WNR) MEDICARE (M) PART B Jun 04, 2020 PART B [id number] [phone] RAÚL AMNCIA PATIENT MEDICARE (WNR) MEDICARE (M) PART A Oct 04, 2006 PART A [id number] RAÚL MANCIA PATIENT MEDICARE (WNR) MEDICARE (M) PART A Oct 04, 2006 PART A [id number] RAÚL MANCIA PATIENT Selected Encounter This section includes the information on record at [place] for the Encounter. Date/Time Encounter Type Encounter Description Reason Pro vider Source Oct 07, 2023 12:00 AM Outpatient Encounter COMMUNITY CARE CONSULT IHE Encounter Template Text not used by [place] Plan of Treatment: Future Appointments (+ 6 months) and Future Tests (+/- 45 days) The Plan of Treatment section includes future care activities for the patient from all [place] treatmentfacilities. This section includes future appointments and future orders which are active, pending or scheduled. Future Appointments This section includes appointments that were scheduled to occur 6 months from the date of the Encounter, up to a maximum of 20 appointments. The data comes from all [place] treatment facilities. Appointment Date/Time Appointment Type Appointme nt Facility Name Oct 08, 2023 03:30 PM AMBULATORY - MEDICINE [facility] Dec 16, 2023 11:00 AM AMBULATORY - MEDICINE [facility] Jan 11, 2024 10:00 AM AMBULATORY MEDICINE [facility] Jan 17, 2024 07:30 AM AM[facility]UL[facility] Active, Pending, and Scheduled Orders This section includes a listing of several types of active, pending, and scheduled orders, including clinic medications orders, diagnostic test orders, procedure orders and consult orders; where the start date of the order is 45 days before the date of the Encounter or 45 days after the date of theEncounter. The data comes from all [place] treatment facilities. Test Date/Time Test Type Test Details Facility Name Oct 01, 2023 12:00 AM Laboratory - Chemistry Order URINALYSIS CLEAN CATCH URINE SP [facility] Lab Results: +/- 30 days of the encounter This section includes the Chemistry and Hematology Lab Results on record with [place] for the patient. Radiology Reports and Pathology Reports are provided separately, in subsequent sections. Lab Results This section contains the Chemistry/Hematology Results that were resulted 30 days before or 30 daysafter the date of the Encounter. Date/Time Source Result Type Result - Unit Interpretation Reference Range Comment Oct 01, 2023 07:31 AM [facility] URIC ACID Specimen Type: SERUM No comment entered. Ordering Provider: OLIVA PÉREZ Report Released Date/Time: Sep 26, 2023 06:56 PM Reporting Lab: [address] [address] [facility]forming [facility] [address] URIC ACID 5.6 mg/dL 3.5-7.2 Oct 01, 2023 07:31 AM [facility] TSH Specimen Type: SERUM No comment entered. Ordering Provider: OLIVA PÉREZ Report Released Date/Time: Sep 26, 2023 06:56 PM Reporting Lab: [facility] [address] [facility] [address] Performing Lab: [facility] [address] TSH 1.01 u[IU]/mL 0.35-5.00 Oct 01, 2023 07:31 AM [facility] LIPID PANEL FASTING Specimen Type: SERUM No comment entered. Ordering Provider: OLIVA PÉREZ Report Released Date/Time: Sep 26, 2023 06:56 PM Reporting Lab: [facility] [address] [facility] [address] Performing Lab: [address] [address] CHOLESTEROL 183 mg/dL TRIGLYCERIDE 104 mg/dL 0-150 LDL calculated 114 mg/dL 0-129 CHOL/HDL 3.8 HDL CHOLESTEROL 48 mg/dL 40-60 Oct 01, 2023 07:31 AM [facility] LIVER FUNCTION Specimen Type: SERUM No comment entered. Ordering Provider: OLIVA PÉREZ Report Released Date/Time: Sep 26, 2023 06:56 PM Reporting Lab: [facility] [address] [facility] [address] Performing Lab: [address] [address] PROTEIN,TOTAL 6.4 g/dL 6.0-8.3 ALBUMIN 3.7 g/dL 3.5-5.0 ALKALINE PHOSPHATASE 130 U/L 40-150 AST 16 U/L 5-34 ALT 12 U/L BILIRUBIN, TOTAL 0.4 mg/dL 0.2-1.2 Oct 01, 2023 07:31 AM [facility] BASIC METABOLIC PANEL (fasting) Specimen Type: SERUM No comment entered. Ordering Provider: OLIVA PÉREZ Report Released Date/Time: Sep 26, 2023 06:56 PM Reporting Lab: [address] [address] Performing Lab: [address] [address] UREA NITROGEN 25 mg/dL 7-25 GLUCOSE 105 mg/dL H 65-100 SODIUM 139 mmol/L 135-145 POTASSIUM 4.3 mmol/L 3.5-5.0 CHLORIDE 106 mmol/L 100-110 CO2 23 meq/L 20-30 CREATININE, Serum 0.85 mg/dL 0.50-1.40 eGFR(CKD-EPI 2020) 89 mL/min >60 Oct 01, 2023 07:31 AM [facility] CBC AND DIFF (AUTO) Specimen Type: BLOOD No comment entered. Ordering Provider: OLIVA PÉREZ Report Released Date/Time: Sep 26, 2023 06:56 PM Reporting Lab: [facility] [address] [facility] [address] Performing Lab: [address] [address] WBC 6.28 10*3/uL 4.50-11.00 RBC 4.75 10*6/uL 4.23-5.66 HGB 12.0 g/dL L 12.8-17 HCT 38.4 L 39.2-50.4 MCV 80.8 fL L 82-99 MCHC 31.3 g/dL 30.8-35.1 PLT 190 10*3/uL 140-360 RDW-CV 15.2 12.0-16.0 [place], Abs 0.56 10*3/uL 0.30-1.10 MCH 25.3 pg L 26.2-32.6 Neut % 73.1 43.7-75.8 Lymph % 13.5 L 14.0-42.3 [place] % 8.9 5.1-13.7 Eos % 3.7 0.4-6.8 [...] and tobacco- related health factors from the [place] facility where the Encounter took place. Current Smoking Status This section includes the most current smoking, or tobacco-related health factor, from the [place] facility where the Encounter took place. Date/Time Current Smoking Status Comment Facil ity Jan 27, 2023 10:00 AM VA-TOBACCO NEVER USED [facility] Tobacco Use History This section includes a history of the smoking, or tobacco-related health factors, that were collected on or before the date of the Encounter. The data comes from the [place] facility where the Encounter took place. Date/Time Smoking Status/Tobacco Use Comment F acility Jan 06, 2022 09:00 AM VA-TOBACCO NEVER USED [facility] Dec 31, 2020 08:00 AM VA-TOBACCO NEVER USED [place] [facility] [place] [facility] Dec 27, 2019 09:48 AM VA-TOBACCO NEVER USED [facility] [place] [facility] Jun 30, 2018 08:41 AM VA-TOBACCO NEVER USED [facility] [place] [facility] Dec 23, 2017 07:46 AM LIFETIME NON-TOBACCO USER [facility] [place] [facility] Dec 22, 2016 08:06 AM LIFETIME NON-TOBACCO USER [facility] [place] [facility] Dec 24, 2015 08:36 AM LIFETIME NON-TOBACCO USER [facility] [place] [facility] Jun 19, 2004 01:52 PM LIFETIME NON-SMOKER [facility] [place] [facility] Jun 19, 2004 01:52 PM LIFETIME NON-TOBACCO USER [facility] [place] [facility] Jun 19, 2004 01:34 PM LIFETIME NON-SMOKER [facility] [place] [facility] Jun 19, 2004 01:34 PM LIFETIME NON-TOBACCO USER [facility] [place] [facility] Advance Directives: All historical and current Section Date Range: From patient's date of to the date document was created. This section includes ALL of a patient's completed or amended [place] Advance and Rescinded Directives. The entries below indicate that a directive exists for the patient, but an actual copy is not included with this document. The data comes from all [place] facilities. Date Advance Directives Provider Source May 20, 2006 ADVANCE DIRECTIVE MARINA FAJARDO [place] [facility] Encounter Notes: All associated encounter notes This section contains the clinical notes associated to the Encounter. Date/Time Encounter Note(s) Provider Source Oct 07, 2023 12:00 AM NONVA CONSULT: LOCAL TITLE: COMMUNITY CARE-CONSULT RESULT NOTE STANDARD TITLE: NONVA CONSULT DATE OF NOTE: OCT 07, 2023 ENTRY DATE: OCT 15, 2023@15:03:44 AUTHOR: NIKOLE GUO EXP COSIGNER: URGENCY: STATUS: COMPLETED VistA Imaging - Scanned Document SCANNED DOCUMENT SIGNATURE NOT REQUIRED Electronically Filed: 10/15/2023 by: NIKOLE MONTAÑO [place] [facility]
--- OUTSIDE RECORDS SUMMARY | 2024-09-12 23:11 | XMS_ITS ---
Author Name [place] Address [address] [place] [address] Care Team Providers Care Jumpbasting Canvas Baster Name Role Phone OLIVA PEGUERO Primary Care [...] Policy Root TOMER ROBLES OF [facility] [employer] GE Apr 03, 2009 [id number] [phone] BLANCHE, JANET SPOUSE BC[facility]* Apr 03, 2009 [id number] BLANCHE, JANET SPOUSE BCBS [facility] [employer] GE Apr 03, 2009 [id number] [phone] FRANCIS MANCIA SPOUSE [employer] ([id number]) PRESCRIPT ION L4TA* Apr 03, 2009 L4TA [id number] FRANCIS MANCIA SPOUSE [employer] ([id number]) PRESCRIPT ION L4TA* Apr 03, 2009 L4TA [id number] FRANCIS MANCIA SPOUSE [employer] ([id number]) PRESCRIPT ION Apr 03, 2009 L4TA [id number] FRANCIS MANCIA SPOUSE MEDICARE (WNR) MEDICARE (M) PART B Jun 04, 2020 PART B [id number] [phone] RAÚL MANCIA PATIENT MEDICARE (WNR) MEDICARE (M) PART A Oct 04, 2006 PART A [id number] RAÚL MANCIA PATIENT MEDICARE (WNR) MEDICARE (M) PART A Oct 04, 2006 PART A [id number] RAÚL MANCIA PATIENT Selected Encounter This section includes the information on record at [place] for the Encounter. Date/Time Encounter Type Encounter Description Reason Pro vider Source Dec 07, 2023 10:54 AM Outpatient Encounter PRIMARY CARE/MEDICINE IHE Encounter Template Text not used by [place] Plan of Treatment: Future Appointments (+ 6 months) and Future Tests (+/- 45 days) The Plan of Treatment section includes future care activities for the patient from all [place] treatmentfacilities. This section includes future appointments and future orders which are active, pending or scheduled. Future Appointments This section includes appointments that were scheduled to occur 6 months from the date of the Encounter, up to a maximum of 20 appointments. The data comes from all [place] treatment facilities. Appointment Date/Time Appointment Type Appointme nt Facility Name Dec 16, 2023 11:00 AM AMBULATORY - MEDIC[facility] [place] [facility] Jan 11, 2024 10:00 AM AMBULATORY - MEDICINE [facility] [place] [facility] Jan 17, 2024 07:30 AM AMBULATORY - MEDICINE [facility] [place] [facility] May 08, 2024 01:00 PM AMBULATORY - MEDICINE [facility] [place] [facility] May 30, 2024 03:30 PM AMBULATORY - MEDICINE [facility] [place] [facility] Lab Results: +/- 30 days of the encounter This section includes the Chemistry and Hematology Lab Results on record with [place] for the patient. Radiology Reports and Pathology Reports are provided separately, in subsequent sections. Lab Results This section contains the Chemistry/Hematology Results that were resulted 30 days before or 30 daysafter the date of the Encounter. Date/Time Source Result Type Result - Unit Interpretation Reference Range Comment Jan 05, 2024 07:30 AM [facility] URIC ACID Specimen Type: SERUM No comment entered. Ordering Provider: OLIVA PEGUERO Report Released Date/Time: Dec 31, 2023 11:06 AM Reporting Lab: [address] [address] Performing Lab: [address] [address] URIC ACID 5.3 mg/dL 3.5-7.2 Jan 05, 2024 07:30 AM [facility] URINALYSIS CLEAN CATCH Specimen Type: URINE Comment: If Glucose = >500 and Ketones are positive, please alert the Physician. Ordering Provider: OLIVA PEGUERO Report Released Date/Time: Dec 31, 2023 11:06 AM Reporting Lab: [address] [address] Performing Lab: [address] [address] UA COLOR Light-Yellow Yellow UA APPEARANCE Clear Clear UA GLUCOSE NEGATIVE mg/dL Negative UA KETONES NEGATIVE mg/dL Negative UA BLOOD NEGATIVE mg/dL Negative UA PROTEIN NEGATIVE mg/dL Negative UA NITRITE NEGATIVE mg/dL Negative UA BILIRUBIN NEGATIVE mg/dL Negative UA SPECIFIC GRAVITY 1.023 H 1.016-1.022 UA pH 6.5 5.0-9.0 UA UROBILINOGEN <2.0 mg/dL <2.0 UA LEUKOCYTE NEGATIVE Negative Jan 05, 2024 07:30 AM [facility] BASIC METABOLIC PANEL (fasting) Specimen Type: SERUM No comment entered. Ordering Provider: OLIVA PEGUERO Report Released Date/Time: Dec 31, 2023 11:06 AM Reporting Lab: [facility] [address] [facility] [address] Performing Lab: [address] [address] UREA NITROGEN 21 mg/dL 7-25 GLUCOSE 116 mg/dL H 65-100 SODIUM 139 mmol/L 135-145 POTASSIUM 4.3 mmol/L 3.5-5.0 CHLORIDE 104 mmol/L 100-110 CO2 24 meq/L 20-30 CREATININE, Serum 0.90 mg/dL 0.50-1.40 eGFR(CKD-EPI 2020) 88 mL/min >60 Jan 05, 2024 07:30 AM [facility] LIVER FUNCTION Specimen Type: SERUM No comment entered. Ordering Provider: OLIVA PEGUERO Report Released Date/Time: Dec 31, 2023 11:06 AM Reporting Lab: [facility] [address] [facility] [address] Performing Lab: [address] [address] PROTEIN,TOTAL 6.2 g/dL 6.0-8.3 ALBUMIN 2.9 g/dL L 3.5-5.0 ALKALINE PHOSPHATASE 234 U/L H 40-150 AST 18 U/L 5-34 ALT 16 U/L BILIRUBIN, TOTAL 0.4 mg/dL 0.2-1.2 Jan 05, 2024 07:30 AM [facility] LIPID PANEL FASTING Specimen Type: SERUM No comment entered. Ordering Provider: OLIVA PEGUERO Report Released Date/Time: Dec 31, 2023 11:06 AM Reporting Lab: [address] [address] Performing Lab: [address] [address] CHOLESTEROL 164 mg/dL TRIGLYCERIDE 112 mg/dL 0-150 LDL calculated 110 mg/dL 0-129 CHOL/HDL 5.1 HDL CHOLESTEROL 32 mg/dL L 40-60 Jan 05, 2024 07:30 AM [facility] TSH Specimen Type: SERUM No comment entered. Ordering Provider: OLIVA PEGUERO Report Released Date/Time: Dec 31, 2023 11:06 AM Reporting Lab: [address] [address] Performing Lab: [address] [address] TSH 3.18 u[IU]/mL 0.35-5.00 Jan 05, 2024 07:30 AM [facility] CBC AND DIFF (AUTO) Specimen Type: BLOOD No comment entered. Ordering Provider: OLIVA PEGUERO Report Released Date/Time: Dec 31, 2023 11:06 AM Reporting Lab: [facility] [address] [facility] [address] Performing Lab: [facility] [address] [facility] [address] WBC 7.18 10*3/uL 4.50-11.00 RBC 5.04 10*6/uL 4.23-5.66 HGB 12.4 g/dL L 12.8-17 HCT 39.0 L 39.2-50.4 MCV 77.4 fL L 82-99 MCHC 31.8 g/dL 30.8-35.1 PLT 324 10*3/uL 140-360 RDW-CV 15.2 12.0-16.0 [place], Abs 0.67 10*3/uL 0.30-1.10 MCH 24.6 pg L 26.2-32.6 Neut % 79.5 H 43.7-75.8 Lymph % 10.6 L 14.0-42.3 [place] % 9.3 5.1-13.7 Eos % 0.0 L 0.4-6.8 Baso % 0.3 0.1-2.0 Neut, Abs 5.71 10*3/uL 2.20-7.60 Lymph, Abs 0.76 10*3/uL L 1.00-3.20 Eos, Abs 0.00 10*3/uL L 0.03-0.44 Baso, Abs 0.02 10*3/uL 0.01-0.13 Immature Gran % 0.3 0.0-0.7 Immature Gran, Abs 0.02 10*3/uL 0.00-0.06 Social History: Smoking Status (Most current) and Tobacco Use (All prior to encounter date) This section includes the most current, and the historical, smoking and tobacco- related health factors from the [place] facility where the Encounter took place. Current Smoking Status This section includes the most current smoking, or tobacco-related health factor, from the [place] facility where the Encounter took place. Date/Time Current Smoking Status Comment Facil ity Jan 27, 2023 10:00 AM VA-TOBACCO NEVER USED [place] CNTRL [place] [facility] Tobacco Use History This section includes a history of the smoking, or tobacco-related health factors, that were collected on or before the date of the Encounter. The data comes from the [place] facility where the Encounter took place. Date/Time Smoking Status/Tobacco Use Comment F acility Jan 06, 2022 09:00 AM VA-TOBACCO NEVER USED [place] [facility] [place] [facility] Dec 31, 2020 08:00 AM VA-TOBACCO NEVER USED [place] [facility] [place] [facility] Dec 27, 2019 09:48 AM VA-TOBACCO NEVER USED [place] [facility] [place] [facility] Jun 30, 2018 08:41 AM VA-TOBACCO NEVER USED [place] [facility] [place] [facility] Dec 23, 2017 07:46 AM LIFETIME NON-TOBACCO USER [place] [facility] [place] [facility] Dec 22, 2016 08:06 AM LIFETIME NON-TOBACCO USER [facility] [place] [facility] Dec 24, 2015 08:36 AM LIFETIME NON-TOBACCO USER [place] [facility] [place] [facility] Jun 19, 2004 01:52 PM LIFETIME NON-SMOKER [place] [facility] [place] [facility] Jun 19, 2004 01:52 PM LIFETIME NON-TOBACCO USER [place] [facility] [facility] Jun 19, 2004 01:34 PM LIFETIME NON-SMOKER [place] [facility] [place] [facility] Jun 19, 2004 01:34 PM LIFETIME NON-TOBACCO USER [place] [facility] [place] [facility] Advance Directives: All historical and current Section Date Range: From patient's date of to the date document was created. This section includes ALL of a patient's completed or amended [place] Advance and Rescinded Directives. The entries below indicate that a directive exists for the patient, but an actual copy is not included with this document. The data comes from all [place] facilities. Date Advance Directives Provider Source May 20, 2006 ADVANCE DIRECTIVE MARINA FAJARDO [place] [facility] Encounter Notes: All associated encounter notes This section contains the clinical notes associated to the Encounter. Date/Time Encounter Note(s) Provider Source Dec 07, 2023 10:54 AM NONVA CONSULT: LOCAL TITLE: MD/OUTSIDE CONSULT REPORT SUMMARY STANDARD TITLE: NONVA CONSULT DATE OF NOTE: DEC 07, 2023@10:54 ENTRY DATE: DEC 07, 2023@10:55:02 AUTHOR: OLIVA PEGUERO EXP COSIGNER: URGENCY: STATUS: COMPLETED 11-23-[address] Guzman Oncology [facility] Chief complaint: Follow-up esophageal cancer Has received radiation therapy and chemotherapy Patient had appointment thoracic surgery Dr. Stevenson to discuss surgery. Patient did not go to the appointment. Pulmonary infiltrates infectious, treat with Augmentin and doxycycline Patient declining surgery Plan: Follow-up 6 weeks /delores/ Oliva Peguero MD Staff Physician Signed: 12/07/2023 10:55 OLIVA PEGUERO [place] [facility]
--- OUTSIDE RECORDS SUMMARY | 2024-09-12 23:11 | XMS_ITS | Encounter Summary ---
Author Name [facility] [place] Address [address] [place] [address] Care Team Providers Care Soil Surveyor Name Role Phone OLIVA PÉREZ Primary Care [...] Policy Root TOMER BOWMANBS OF [facility] [employer] GE Apr 03, 2009 [id number] FRANCIS MANCIA SPOUSE BCBS [facility] BLUE* Apr 03, 2009 [id number] [phone] BLANCHE, JANET SPOUSE BCBS [facility] [employer] GE Apr 03, 2009 [id number] FRANCIS MANCIA SPOUSE EXPRESS SCRIPTS ([id number]) PRESCRIPT ION L4TA* Apr 03, 2009 L4TA [id number] FRANCIS MANCIA SPOUSE [employer] ([id number]) PRESCRIPT ION L4TA* Apr 03, 2009 L4TA [id number] FRANCIS MANCIA SPOUSE [employer] ([id number]) PRESCRIPT ION Apr 03, 2009 L4TA [id number] FRANCIS MANCIA SPOUSE MEDICARE (WNR) MEDICARE (M) PART B Jun 04, 2020 PART B [id number] RAÚL MANCIA PATIENT MEDICARE (WNR) MEDICARE (M) PART A Oct 04, 2006 PART A [id number] RAÚL MANCIA PATIENT MEDICARE (WNR) MEDICARE (M) PART A Oct 04, 2006 PART A [id number] RAÚL MANCIA PATIENT Selected Encounter This section includes the information on [place] at [place] for the Encounter. Date/Time Encounter Type Encounter Description Reason Pro vider Source Nov 23, 2023 12:00 AM Outpatient Encounter COMMUNITY CARE CONSULT IHE Encounter Template Text not used by [facility] Plan of Treatment: Future Appointments (+ 6 months) and Future Tests (+/- 45 days) The Plan of Treatment section includes future care activities for the patient from all [place] treatmentfacilities. This section includes future appointments and future orders which are active, pending or scheduled. Future Appointments This section includes appointments that were scheduled to occur 6 months from the date of the Encounter, up to a maximum of 20 appointments. The data comes from all [place] treatment facilities. Appointment Date/Time Appointment Type Appointme nt Facility Name Dec 16, 2023 11:00 AM AMBULATORY - [facility] Jan 11, 2024 10:00 AM [facility] [place] [facility] Jan 17, 2024 07:30 AM AM[facility]ULATORY [facility] May 08, 2024 01:00 PM [facility] Social History: Smoking Status (Most current) and Tobacco Use (All prior to encounter date) This section includes the most current, and the historical, smoking and tobacco- related health factors from the [place] facility where the Encounter took place. Current Smoking Status This section includes the most current smoking, or tobacco-related health factor, from the [place] facility where the Encounter took place. Date/Time Current Smoking Status Comment Ronald ity Jan 27, 2023 10:00 AM [facility] Tobacco Use History This section includes a history of the smoking, or tobacco-related health factors, that were collected on or before the date of the Encounter. The data comes from the [place] facility where the Encounter took place. Date/Time Smoking Status/Tobacco Use Comment F acility Jan 06, 2022 09:00 AM VA-TOBACCO NEVER USED [place] [facility] [place] [facility] Dec 31, 2020 08:00 AM VA-TOBACCO NEVER USED [place] [facility] [place] [facility] Dec 27, 2019 09:48 AM VA-TOBACCO NEVER USED [place] [facility] [place] [facility] Jun 30, 2018 08:41 AM VA-TOBACCO NEVER USED [place] [facility] [place] [facility] Dec 23, 2017 07:46 AM LIFETIME NON-TOBACCO USER [place] [facility] [place] [facility] Dec 22, 2016 08:06 AM LIFETIME NON-TOBACCO USER [place] [facility] [place] [facility] Dec 24, 2015 08:36 AM LIFETIME NON-TOBACCO USER [place] [facility] [place] [facility] Jun 19, 2004 01:52 PM LIFETIME NON-SMOKER [place] [facility] [place] [facility] Jun 19, 2004 01:52 PM LIFETIME NON-TOBACCO USER [place] [facility] [place] [facility] Jun 19, 2004 01:34 PM LIFETIME NON-SMOKER [place] [facility] [place] [facility] Jun 19, 2004 01:34 PM LIFETIME NON-TOBACCO USER [place] [facility] [facility] Advance Directives: All historical and current Section Date Range: From patient's date of to the date document was created. This section includes ALL of a patient's completed or amended [place] Advance and Rescinded Directives. The entries below indicate that a directive exists for the patient, but an actual copy is not included with this document. The data comes from all [place] facilities. Date Advance Directives Provider Source May 20, 2006 ADVANCE DIRECTIVE MARINA FAJARDO [place] CNT [place] [facility] Encounter Notes: All associated encounter notes This section contains the clinical notes associated to the Encounter. Date/Time Encounter Note(s) Provider Source Nov 23, 2023 12:00 AM NONVA CONSULT: LOCAL TITLE: COMMUNITY CARE-CONSULT RESULT NOTE STANDARD TITLE: NONVA CONSULT DATE OF NOTE: NOV 23, 2023 ENTRY DATE: DEC 10, 2023@14:27:25 AUTHOR: BEN ROSENTHAL COSIGNER: URGENCY: STATUS: COMPLETED VistA Imaging - Scanned Document SCANNED DOCUMENT SIGNATURE NOT REQUIRED Electronically Filed: 12/10/2023 by: BEN ROSENTHAL HYDROTEL OPERATOR BEN ROSENTHAL [place] CNTL [facility]
--- OUTSIDE RECORDS SUMMARY | 2024-09-12 23:11 | XMS_ITS ---
Author Name [facility] [place] Organization [place] Address [address] [place] [address] Care Team Providers Care Shrimp Packer Name Role Phone OLIVA PEGUERO Primary Care [...] Relationship to Policy Root TOMER BOWMANBS OF [facility] [employer] GE Apr 03, 2009 [id number] FRANCIS MANCIA SPOUSE BCBS [facility]UE* Apr 03, 2009 [id number] BLANCHE, JANET SPOUSE BCBS [facility] [employer] GE Apr 03, 2009 [id number] FRANCIS MANCIA SPOUSE [employer] S[employer]IP[employer] ([id number]) PRESCRIPT ION L4TA* Apr 03, 2009 L4TA [id number] FRANCIS MANCIA SPOUSE [employer] ([id number]) PRESCRIPT ION L4TA* Apr 03, 2009 L4TA [id number] FRANCIS MANCIA SPOUSE [employer] ([id number]) PRESCRIPT ION Apr 03, 2009 L4TA [id number] FRANCIS MANCIA SPOUSE MEDICARE (WNR) MEDICARE (M) PART B Jun 04, 2020 PART B [id number] RAÚL MANCIA PATIENT MEDICARE (WNR) MEDICARE (M) PART A Oct 04, 2006 PART A [id number] RAÚL MANCIA PATIENT MEDICARE (WNR) MEDICARE (M) PART A Oct 04, 2006 PART A [id number] RAÚL MANCIA PATIENT Selected Encounter This section includes the information on record at [place] for the Encounter. Date/Time Encounter Type Encounter Description Reason Pro vider Source Nov 10, 2023 07:16 AM Outpatient Encounter COMMUNITY CARE CONSULT IHE Encounter Template Text not used by [place] Plan of Treatment: Future Appointments (+ 6 months) and Future Tests (+/- 45 days) The Plan of Treatment section includes future care activities for the patient from all [place] treatmentfacilities. This section includes future appointments and future orders which are active, pending or scheduled. Future Appointments This section includes appointments that were scheduled to occur 6 months from the date of the Encounter, up to a maximum of 20 appointments. The data comes from all [place] treatment facilities. Appointment Date/Time Appointment Type Appointme nt Facility Name Dec 16, 2023 11:00 AM [facility] Jan 11, 2024 10:00 AM [facility]UL[facility] [place] [facility] Jan 17, 2024 07:30 AM [facility] [place] [facility] May 08, 2024 01:00 PM AMBULATORY MEDICINE [facility] Active, Pending, and Scheduled Orders This section includes a listing of several types of active, pending, and scheduled orders, including clinic medications orders, diagnostic test orders, procedure orders and consult orders; where the start date of the order is 45 days before the date of the Encounter or 45 days after the date of theEncounter. The data comes from all [place] treatment facilities. Test Date/Time Test Type Test Details Facility Name Oct 01, 2023 12:00 AM Laboratory - Chemistry Order URINALYSIS CLEAN CATCH URINE SP [place] [facility] [facility] Social History: Smoking Status (Most current) and Tobacco Use (All prior to encounter date) This section includes the most current, and the historical, smoking and tobacco- related health factors from the [place] facility where the Encounter took place. Current Smoking Status This section includes the most current smoking, or tobacco-related health factor, from the [place] facility where the Encounter took place. Date/Time Current Smoking Status Comment Facil ity Jan 27, 2023 10:00 AM VA-TOBACCO NEVER USED [place] [facility] Tobacco Use History This section includes a history of the smoking, or tobacco-related health factors, that were collected on or before the date of the Encounter. The data comes from the [place] facility where the Encounter took place. Date/Time Smoking Status/Tobacco Use Comment F acility Jan 06, 2022 09:00 AM VA-TOBACCO NEVER USED [place] [facility] [place] [facility] Dec 31, 2020 08:00 AM VA-TOBACCO NEVER USED [place] [facility] [place] [facility] Dec 27, 2019 09:48 AM VA-TOBACCO NEVER USED [place] [facility] [place] [facility] Jun 30, 2018 08:41 AM VA-TOBACCO NEVER USED [place] [facility] [place] [facility] Dec 23, 2017 07:46 AM LIFETIME NON-TOBACCO USER [place] [facility] [place] [facility] Dec 22, 2016 08:06 AM LIFETIME NON-TOBACCO USER [place] [facility] [place] [facility] Dec 24, 2015 08:36 AM LIFETIME NON-TOBACCO USER [place] [facility] [place] [facility] Jun 19, 2004 01:52 PM LIFETIME NON-SMOKER [place] [facility] [place] [facility] Jun 19, 2004 01:52 PM LIFETIME NON-TOBACCO USER [place] [facility] [place] [facility] Jun 19, 2004 01:34 PM LIFETIME NON-SMOKER [place] [facility] [place] [facility] Jun 19, 2004 01:34 PM LIFETIME NON-TOBACCO USER [place] [facility] [place] [facility] Advance Directives: All historical and current Section Date Range: From patient's date of to the date document was created. This section includes ALL of a patient's completed or amended [place] Advance and Rescinded Directives. The entries below indicate that a directive exists for the patient, but an actual copy is not included with this document. The data comes from all [place] facilities. Date Advance Directives Provider Source May 20, 2006 ADVANCE DIRECTIVE MARINA FAJARDO [place] [facility] Encounter Notes: All associated encounter notes This section contains the clinical notes associated to the Encounter. Date/Time Encounter Note(s) Provider Source Nov 10, 2023 07:16 AM ADMINISTRATIVE NOT E: LOCAL TITLE: ADMINISTRATIVE NOTE STANDARD TITLE: ADMINISTRATIVE NOTE DATE OF NOTE: NOV 10, 2023@07:16 ENTRY DATE: NOV 10, 2023@07:16:38 AUTHOR: ABHINAV SALMON COSIGNER: URGENCY: STATUS: COMPLETED ADMINISTRATIVE NOTE Has ADDENDA 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 Veterans current authoirzation is . if approved please enter a new consult [facility] Radiation Oncology [address] [place] [address] Facility /delores/ ABHINAV SALMON NICKER AND BREAKER Signed: 11/10/2023 07:17 Receipt Acknowledged By: 11/10/2023 08:48 /delores/ Shanon Bowden RN, BSN Primary Care 11/10/2023 08:38 /delores/ Oliva Peguero MD Staff Physician 11/10/2023 ADDENDUM STATUS: COMPLETED Done. /delores/ Oliva Peguero MD Staff Physician Signed: 11/10/2023 08:38 BAHINAV SALMONL [facility]
--- OUTSIDE RECORDS SUMMARY | 2024-09-12 23:11 | XMS_ITS ---
Author Name [facility] [place] Address [address] [place] [address] Care Team Providers Care Sound Assistant Name Role Phone OLIVA PEGUERO Primary Care [...] Relationship to Policy Root TOMER BOWMANBS OF [facility] [employer] GE Apr 03, 2009 [id number] FRANCIS MANCIA SPOUSE BCBS [facility]UE* Apr 03, 2009 [id number] [phone] BLANCHE, JANET SPOUSE BCBS [facility] [employer] GE Apr 03, 2009 [id number] [phone] FRANCIS MANCIA SPOUSE [employer] ([id number]) PRESCRIPT ION L4TA* Apr 03, 2009 L4TA [id number] FRANCIS MANCIA SPOUSE [employer] ([id number]) PRESCRIPT ION L4TA* Apr 03, 2009 L4TA [id number] FRANCIS MANCIA SPOUSE [employer] ([id number]) PRESCRIPT ION Apr 03, 2009 L4TA [id number] FRANCIS MANCIA SPOUSE MEDICARE (WNR) MEDICARE (M) PART B Jun 04, 2020 PART B [id number] RAÚL MANCIA PATIENT MEDICARE (WNR) MEDICARE (M) PART A Oct 04, 2006 PART A [id number] RAÚL MANCIA PATIENT MEDICARE (WNR) MEDICARE (M) PART A Oct 04, 2006 PART A [id number] RAÚL MANCIA PATIENT Selected Encounter This section includes the information on record at [place] for the Encounter. Date/Time Encounter Type Encounter Description Reason Pro vider Source Dec 17, 2023 08:42 AM Outpatient Encounter COMMUNITY CARE CONSULT IHE [...] Date/Time Appointment Type Appointme nt Facility Name Jan 11, 2024 10:00 AM AMBULATORY - [facility] Jan 17, 2024 07:30 AM AMBULATORY - MEDICINE [facility]L [place] [facility] May 08, 2024 01:00 PM AMBULATORY MEDICINE [facility] NTR [place] [facility] May 30, 2024 03:30 PM AMBULATORY MEDICINE [facility] Lab Results: +/- 30 days [...] Range Comment Jan 05, 2024 07:30 AM [facility] URIC ACID Specimen Type: SERUM No comment entered. Ordering Provider: OLIVA PEGUERO Report Released Date/Time: Dec 31, 2023 11:06 AM Reporting Lab: [address] [address] Performing Lab: [address] [address] URIC ACID 5.3 mg/dL 3.5-7.2 Jan 05, 2024 07:30 AM [facility] URINALYSIS CLEAN CATCH Specimen Type: URINE Comment: If Glucose = >500 and Ketones are positive, please alert the Physician. Ordering Provider: OLIVA PEGUERO Report Released Date/Time: Dec 31, 2023 11:06 AM Reporting Lab: [address] [address] Performing Lab: [address] [address] UA COLOR Light-Yellow Yellow UA APPEARANCE Clear Clear UA GLUCOSE NEGATIVE mg/dL Negative UA KETONES NEGATIVE mg/dL Negative UA BLOOD NEGATIVE mg/dL Negative UA PROTEIN NEGATIVE mg/dL Negative UA NITRITE NEGATIVE mg/dL Negative UA BILIRUBIN NEGATIVE mg/dL Negative UA SPECIFIC GRAVITY 1.023 H 1.016-1.022 UA pH 6.5 5.0-9.0 UA UROBILINOGEN <2.0 mg/dL <2.0 UA LEUKOCYTE NEGATIVE Negative Jan 05, 2024 07:30 AM [facility] BASIC METABOLIC PANEL (fasting) Specimen Type: SERUM No comment entered. Ordering Provider: OLIVA PEGUERO Report Released Date/Time: Dec 31, 2023 11:06 AM Reporting Lab: [address] [address] Performing Lab: [address] [address] UREA NITROGEN 21 mg/dL 7-25 GLUCOSE 116 mg/dL H 65-100 SODIUM 139 mmol/L 135-145 POTASSIUM 4.3 mmol/L 3.5-5.0 CHLORIDE 104 mmol/L 100-110 CO2 24 meq/L 20-30 CREATININE, Serum 0.90 mg/dL 0.50-1.40 eGFR(CKD-EPI 2020) 88 mL/min >60 Jan 05, 2024 07:30 AM [facility] LIVER FUNCTION Specimen Type: SERUM No comment entered. Ordering Provider: OLIVA PEGUERO Report Released Date/Time: Dec 31, 2023 11:06 AM Reporting Lab: [facility] [address] [facility] [address] Performing Lab: [address] [address] PROTEIN,TOTAL 6.2 g/dL 6.0-8.3 ALBUMIN 2.9 g/dL L 3.5-5.0 ALKALINE PHOSPHATASE 234 U/L H 40-150 AST 18 U/L 5-34 ALT 16 U/L BILIRUBIN, TOTAL 0.4 mg/dL 0.2-1.2 Jan 05, 2024 07:30 AM [facility] LIPID PANEL FASTING Specimen Type: SERUM No comment entered. Ordering Provider: OLIVA PEGUERO Report Released Date/Time: Dec 31, 2023 11:06 AM Reporting Lab: [facility] [address] [address] Performing Lab: [address] [address] CHOLESTEROL 164 mg/dL TRIGLYCERIDE 112 mg/dL 0-150 LDL calculated 110 mg/dL 0-129 CHOL/HDL 5.1 HDL CHOLESTEROL 32 mg/dL L 40-60 Jan 05, 2024 07:30 AM [facility] TSH Specimen Type: SERUM No comment entered. Ordering Provider: OLIVA PEGUERO Report Released Date/Time: Dec 31, 2023 11:06 AM Reporting Lab: [facility] [address] [address] Performing Lab: [address] [address] TSH 3.18 u[IU]/mL 0.35-5.00 Jan 05, 2024 07:30 AM [facility] CBC AND DIFF (AUTO) Specimen Type: BLOOD No comment entered. Ordering Provider: OLIVA PEGUERO Report Released Date/Time: Dec 31, 2023 11:06 AM Reporting Lab: [facility] [address] [address] Performing Lab: [facility] [address] [address] WBC 7.18 10*3/uL 4.50-11.00 RBC 5.04 10*6/uL 4.23-5.66 HGB 12.4 g/dL L 12.8-17 HCT 39.0 L 39.2-50.4 MCV 77.4 fL L 82-99 MCHC 31.8 g/dL 30.8-35.1 PLT 324 10*3/uL 140-360 RDW-CV 15.2 12.0-16.0 [place], Abs 0.67 10*3/uL 0.30-1.10 MCH 24.6 pg L 26.2-32.6 Neut % 79.5 H 43.7-75.8 Lymph % 10.6 L 14.0-42.3 [place] % 9.3 5.1-13.7 Eos % 0.0 L [...] 27, 2023 10:00 AM VA-TOBACCO [facility] USED [facility] [place] [facility] Tobacco Use History This section includes a history of the smoking, or tobacco-related health factors, that were collected on or before the date of the Encounter. The data comes from the [place] facility where the Encounter took place. Date/Time Smoking Status/Tobacco Use Comment F acility Jan 06, 2022 09:00 AM VA-TOBACCO NEVER USED [place] [facility] [place] [facility] Dec 31, 2020 08:00 AM VA-TOBACCO NEVER USED [place] [facility] [place] [facility] Dec 27, 2019 09:48 AM VA-TOBACCO NEVER USED [place] [facility] [place] [facility] Jun 30, 2018 08:41 AM VA-TOBACCO NEVER USED [place] [facility] [place] [facility] Dec 23, 2017 07:46 AM LIFETIME NON-TOBACCO USER [place] [facility] [place] [facility] Dec 22, 2016 08:06 AM LIFETIME NON-TOBACCO USER [place] [facility] [place] [facility] Dec 24, 2015 08:36 AM LIFETIME NON-TOBACCO USER [place] [facility] [place] [facility] Jun 19, 2004 01:52 PM LIFETIME NON-SMOKER [place] [facility] [place] [facility] Jun 19, 2004 01:52 PM LIFETIME NON-TOBACCO USER [place] [facility] [place] [facility] Jun 19, 2004 01:34 PM LIFETIME NON-SMOKER [place] [facility] [place] [facility] Jun 19, 2004 01:34 PM LIFETIME NON-TOBACCO USER [place] CNTRL [place] [facility] Advance Directives: All historical [...] DIRECTIVE MARINA FAJARDO [place] CNT [place] [facility] Encounter Notes: All associated encounter notes This section contains the clinical notes associated to the Encounter. Date/Time Encounter Note(s) Provider Source Dec 17, 2023 08:43 AM ADMINISTRATIVE NOTE: LOCAL TITLE: ADMINISTRATIVE NOTE STANDARD TITLE: ADMINISTRATIVE NOTE DATE OF NOTE: DEC 17, 2023@08:43 ENTRY DATE: DEC 17, 2023@08:43:41 AUTHOR: FRANK MCCABE COSIGNER: URGENCY: STATUS: COMPLETED ADMINISTRATIVE NOTE Has ADDENDA was referred to [facility] by Dr. Guzman, Oncology (under [place] [facility] onc consult) for abnormal CT,pna, nodule seen on CT. He was seen by pulmonology on 12/16/2023 at 11AM-Dr. Dale [place]. CC RN requested all records to be faxed. Records being faxed to CC fax and to PACT fax at time of note. PACT-please review and if in agreement please enter community care-pulmonary consult. Thank you. /mango MCCABE Community [facility] RN Signed: 12/17/2023 08:47 Receipt Acknowledged By: 12/17/2023 09:46 /delores/ Tiesha DU RN CNL Primary Care RN for MARK BANSAL 12/17/2023 17:46 /delores/ Oliva Peguero MD Staff Physician 12/17/2023 ADDENDUM STATUS: COMPLETED Entered HFS by PCP /mango DU RN CNL Primary Care RN Signed: 12/17/2023 09:46 12/17/2023 ADDENDUM STATUS: COMPLETED Signed. /delores/ Oliva Peguero MD Staff Physician Signed: 12/17/2023 17:46 FRANK MCCABE [facility]
--- OUTSIDE RECORDS SUMMARY | 2024-09-12 23:11 | XMS_ITS ---
Author Name [place] Address [address] [place] [address] Care Team Providers Care Integrity Analyst Name Role Phone OLIVA PÉREZ Primary Care [...] Policy Root TOMER BOWMANBS OF [facility] Protein Bar GE Apr 03, 2009 [id number] FRANCIS MANCIA SPOUSE BCBS [facility] BLUE* Apr 03, 2009 [id number] BLANCHE, JANET SPOUSE BCBS [facility] Relive GE Apr 03, 2009 [id number] [phone] FRANCIS MANCIA SPOUSE EXPRESS SCRIP[employer] ([id number]) PRESCRIPT ION L4TA* Apr 03, 2009 L4TA [id number] FRANCIS MANCIA SPOUSE [employer] ([id number]) PRESCRIPT ION L4TA* Apr 03, 2009 L4TA [id number] FRANCIS MANCIA SPOUSE [employer] ([id number]) PRESCRIPT ION Apr 03, 2009 L4TA [id number] FRANCIS MANCIA SPOUSE MEDICARE (WNR) MEDICARE (M) PART B Jun 04, 2020 PART B [id number] RAÚL MANCIA PATIENT MEDICARE (WNR) MEDICARE (M) PART A Oct 04, 2006 PART A [id number] RAÚL MANCIA PATIENT MEDICARE (WNR) MEDICARE (M) PART A Oct 04, 2006 PART A [id number] [phone] RAÚL MANCIA PATIENT Selected Encounter This section includes the information on record at [place] for the Encounter. Date/Time Encounter Type Encounter Description Reason Pro vider Source Nov 16, 2023 12:00 AM Outpatient Encounter COMMUNITY CARE CONSULT IHE Encounter Template Text not used by [facility] Plan of Treatment: Future Appointments (+ 6 months) and Future Tests (+/- 45 days) The Plan of Treatment section includes future care activities for the patient from all [place] treatmentfacilities. This section includes future appointments and future orders which are active, pending or scheduled. Future Appointments This section includes appointments that were scheduled to occur 6 months from the date of the Encounter, up to a maximum of 20 appointments. The data comes from all [place] treatment facilities. Appointment Date/Time Appointment Type Appointme nt Facility Name Dec 16, 2023 11:00 AM [facility]UL[facility] Jan 11, 2024 10:00 AM [facility] [place] [facility] Jan 17, 2024 07:30 AM [facility] May 08, 2024 01:00 PM [facility] Social History: Smoking Status (Most current) and Tobacco Use (All prior to encounter date) This section includes the most current, and the historical, smoking and tobacco- related health factors from the [place] facility where the Encounter took place. Current Smoking Status This section includes the most current smoking, or tobacco-related health factor, from the [place] facility where the Encounter took place. Date/Time Current Smoking Status Comment Ronald ity Jan 27, 2023 10:00 AM VA-TOBACCO [facility] Tobacco Use History This section includes a history of the smoking, or tobacco-related health factors, that were collected on or before the date of the Encounter. The data comes from the [place] facility where the Encounter took place. Date/Time Smoking Status/Tobacco Use Comment F acility Jan 06, 2022 09:00 AM VA-TOBACCO NEVER USED [place] [facility] [place] [facility] Dec 31, 2020 08:00 AM VA-TOBACCO NEVER USED [facility] [place] [facility] Dec 27, 2019 09:48 AM VA-TOBACCO NEVER USED [facility] [place] [facility] Jun 30, 2018 08:41 AM VA-TOBACCO NEVER USED [facility] [place] [facility] Dec 23, 2017 07:46 AM LIFETIME NON-TOBACCO USER [place] [facility] [place] [facility] Dec 22, 2016 08:06 AM LIFETIME NON-TOBACCO USER [place] [facility] [place] [facility] Dec 24, 2015 08:36 AM LIFETIME NON-TOBACCO USER [place] [facility] [place] [facility] Jun 19, 2004 01:52 PM LIFETIME NON-SMOKER [place] [facility] [place] [facility] Jun 19, 2004 01:52 PM LIFETIME NON-TOBACCO USER [place] [facility] [place] [facility] Jun 19, 2004 01:34 PM LIFETIME NON-SMOKER [place] [facility] [place] [facility] Jun 19, 2004 01:34 PM LIFETIME NON-TOBACCO USER [place] [facility] Advance Directives: All historical and current Section Date Range: From patient's date of to the date document was created. This section includes ALL of a patient's completed or amended [place] Advance and Rescinded Directives. The entries below indicate that a directive exists for the patient, but an actual copy is not included with this document. The data comes from all [place] facilities. Date Advance Directives Provider Source May 20, 2006 ADVANCE DIRECTIVE MARINA FAJARDO [place] CNT [place] [facility] Encounter Notes: All associated encounter notes This section contains the clinical notes associated to the Encounter. Date/Time Encounter Note(s) Provider Source Nov 16, 2023 12:00 AM NONVA CONSULT: LOCAL TITLE: COMMUNITY CARE-CONSULT RESULT NOTE STANDARD TITLE: NONVA CONSULT DATE OF NOTE: NOV 16, 2023 ENTRY DATE: NOV 30, 2023@10:46:46 AUTHOR: MARILIN AUGUSTIN EXP COSIGNER: URGENCY: STATUS: COMPLETED VistA Imaging - Scanned Document SCANNED DOCUMENT SIGNATURE NOT REQUIRED Electronically Filed: 11/30/2023 by: MARILIN AUGUSTIN SINGLE SPINDLE SCREW MACHINE OPERATOR MARILIN AUGUSTIN [place] CN[facility]
--- OUTSIDE RECORDS SUMMARY | 2024-09-12 23:12 | XMS_ITS | Encounter Summary ---
Author Name [facility] [place] Address [address] [place] [id number] Care Team Providers Care Hot Dipper Name Role Phone OLIVA PÉREZ Primary Care [...] Relationship to Policy Root TOMER BOWMANBS OF [facility] [employer] GE Apr 03, 2009 [id number] [phone] FRANCIS MANCIA SPOUSE BCBS [facility] BLUE* Apr 03, 2009 [id number] BLANCHE, JANET SPOUSE BCBS [facility] [email or web address] GE Apr 03, 2009 [id number] FRANCIS MANCIA SPOUSE [employer] ([id number]) PRESCRIPT ION L4TA* Apr 03, 2009 L4TA [id number] FRANCIS MANCIA SPOUSE [employer] ([id number]) PRESCRIPT ION L4TA* Apr 03, 2009 L4TA [id number] FRANCIS MANCIA SPOUSE [employer] ([id number]) PRESCRIPT ION Apr 03, 2009 L4TA [id number] FRANCIS MANCIA SPOUSE MEDICARE (WNR) MEDICARE (M) PART B Jun 04, 2020 PART B [id number] [phone] RAÚL MANCIA PATIENT MEDICARE (WNR) MEDICARE (M) PART A Oct 04, 2006 PART A [id number] RAÚL MANCIA PATIENT MEDICARE (WNR) MEDICARE (M) PART A Oct 04, 2006 PART A [id number] RAÚL MANCIA PATIENT Selected Encounter This section includes the information on record at [place] for the Encounter. Date/Time Encounter Type Encounter Description Reason Pro vider Source Dec 16, 2023 12:00 AM Outpatient Encounter COMMUNITY CARE CONSULT IHE Encounter Template Text not used by [place] Plan of Treatment: Future Appointments (+ 6 months) and Future Tests (+/- 45 days) The Plan of Treatment section includes future care activities for the patient from all [place] treatmentfacilities. This section includes future appointments and future orders which are active, pending or scheduled. Future Appointments This section includes appointments that were scheduled to occur 6 months from the date of the Encounter, up to a maximum of 20 appointments. The data comes from all [place] treatment facilities. Appointment Date/Time Appointment Type Appointme nt Facility Name Jan 11, 2024 10:00 AM AMBULATORY - [facility]INE [facility] Jan 17, 2024 07:30 AM AMBULATORY MEDICINE [facility] N[place]L [place] [facility] May 08, 2024 01:00 PM AMBULATORY MEDICINE [facility] NTR [place] [facility] May 30, 2024 03:30 PM AMBULATORY MEDICINE [facility] Lab Results: +/- 30 days of the encounter This section includes the Chemistry and Hematology Lab Results on record with [place] for the patient. Radiology Reports and Pathology Reports are provided separately, in subsequent sections. Lab Results This section contains the Chemistry/Hematology Results that were resulted 30 days before or 30 daysafter the date of the Encounter. Date/Time Source Result Type Result - Unit Interpretation Reference Range Comment Jan 05, 2024 07:30 AM [facility] URIC ACID Specimen Type: SERUM No comment entered. Ordering Provider: OLIVA PÉREZ Report Released Date/Time: Dec 31, 2023 11:06 AM Reporting Lab: [address] [address] Performing Lab: [address] [address] URIC ACID 5.3 mg/dL 3.5-7.2 Jan 05, 2024 07:30 AM [facility] URINALYSIS CLEAN CATCH Specimen Type: URINE Comment: If Glucose = >500 and Ketones are positive, please alert the Physician. Ordering Provider: OLIVA PÉREZ Report Released Date/Time: Dec 31, 2023 11:06 AM Reporting Lab: [address] [address] Performing Lab: [address] [address] UA COLOR Light-Yellow Yellow UA APPEARANCE Clear Clear UA GLUCOSE NEGATIVE mg/dL Negative UA KETONES NEGATIVE mg/dL Negative UA BLOOD NEGATIVE mg/dL Negative UA PROTEIN NEGATIVE mg/dL Negative UA NITRITE NEGATIVE mg/dL Negative UA BILIRUBIN NEGATIVE mg/dL Negative UA SPECIFIC GRAVITY 1.023 H 1.016-1.022 UA pH 6.5 5.0-9.0 UA UROBILINOGEN <2.0 mg/dL <2.0 UA LEUKOCYTE NEGATIVE Negative Jan 05, 2024 07:30 AM [facility] BASIC METABOLIC PANEL (fasting) Specimen Type: SERUM No comment entered. Ordering Provider: OLIVA PÉREZ Report Released Date/Time: Dec 31, 2023 11:06 AM Reporting Lab: [address] [address] Performing Lab: [address] [address] UREA NITROGEN 21 mg/dL 7-25 GLUCOSE 116 mg/dL H 65-100 SODIUM 139 mmol/L 135-145 POTASSIUM 4.3 mmol/L 3.5-5.0 CHLORIDE 104 mmol/L 100-110 CO2 24 meq/L 20-30 CREATININE, Serum 0.90 mg/dL 0.50-1.40 eGFR(CKD-EPI 2020) 88 mL/min >60 Jan 05, 2024 07:30 AM [facility] LIVER FUNCTION Specimen Type: SERUM No comment entered. Ordering Provider: OLIVA PÉREZ Report Released Date/Time: Dec 31, 2023 11:06 AM Reporting Lab: [facility] [address] [facility] [address] Performing Lab: [address] [address] PROTEIN,TOTAL 6.2 g/dL 6.0-8.3 ALBUMIN 2.9 g/dL L 3.5-5.0 ALKALINE PHOSPHATASE 234 U/L H 40-150 AST 18 U/L 5-34 ALT 16 U/L BILIRUBIN, TOTAL 0.4 mg/dL 0.2-1.2 Jan 05, 2024 07:30 AM [facility] LIPID PANEL FASTING Specimen Type: SERUM No comment entered. Ordering Provider: OLIVA PÉREZ Report Released Date/Time: Dec 31, 2023 11:06 AM Reporting Lab: [facility] [address] [facility] [address] Performing Lab: [address] [address] CHOLESTEROL 164 mg/dL TRIGLYCERIDE 112 mg/dL 0-150 LDL calculated 110 mg/dL 0-129 CHOL/HDL 5.1 HDL CHOLESTEROL 32 mg/dL L 40-60 Jan 05, 2024 07:30 AM [facility] TSH Specimen Type: SERUM No comment entered. Ordering Provider: OLIVA PÉREZ Report Released Date/Time: Dec 31, 2023 11:06 AM Reporting Lab: [facility] [address] [facility] [address] Performing Lab: [address] [address] TSH 3.18 u[IU]/mL 0.35-5.00 Jan 05, 2024 07:30 AM [facility] CBC AND DIFF (AUTO) Specimen Type: BLOOD No comment entered. Ordering Provider: OLIVA PÉREZ Report Released Date/Time: Dec 31, 2023 11:06 AM Reporting Lab: [facility] [address] [facility] [address] Performing Lab: [facility] [address] [facility] [address] WBC 7.18 10*3/uL 4.50-11.00 RBC 5.04 10*6/uL 4.23-5.66 HGB 12.4 g/dL L 12.8-17 HCT 39.0 L 39.2-50.4 MCV 77.4 fL L 82-99 MCHC 31.8 g/dL 30.8-35.1 PLT 324 10*3/uL 140-360 RDW-CV 15.2 12.0-16.0 [place], Abs 0.67 10*3/uL 0.30-1.10 MCH 24.6 pg L 26.2-32.6 Neut % 79.5 H 43.7-75.8 Lymph % 10.6 L 14.0-42.3 [place] % 9.3 5.1-13.7 Eos % 0.0 [...] and tobacco- related health factors from the [place] facility where the Encounter took place. Current Smoking Status This section includes the most current smoking, or tobacco-related health factor, from the [place] facility where the Encounter took place. Date/Time Current Smoking Status Comment Facil ity Jan 27, 2023 10:00 AM [facility] Tobacco Use History This section includes a history of the smoking, or tobacco-related health factors, that were collected on or before the date of the Encounter. The data comes from the [place] facility where the Encounter took place. Date/Time Smoking Status/Tobacco Use Comment F acility Jan 06, 2022 09:00 AM VA-TOBACCO NEVER USED [facility] [place] [facility] Dec 31, 2020 08:00 AM VA-TOBACCO NEVER USED [facility] [place] [facility] Dec 27, 2019 09:48 AM VA-TOBACCO NEVER USED [facility] [place] [facility] Jun 30, 2018 08:41 AM VA-TOBACCO NEVER USED [facility] [place] [facility] Dec 23, 2017 07:46 AM LIFETIME NON-TOBACCO USER [place] [facility] [place] [facility] Dec 22, 2016 08:06 AM LIFETIME NON-TOBACCO USER [place] [facility] [place] [facility] Dec 24, 2015 08:36 AM LIFETIME NON-TOBACCO USER [place] [facility] [place] [facility] Jun 19, 2004 01:52 PM LIFETIME NON-SMOKER [place] [facility] [place] [facility] Jun 19, 2004 01:52 PM LIFETIME NON-TOBACCO USER [place] [facility] [place] [facility] Jun 19, 2004 01:34 PM LIFETIME NON-SMOKER [place] [facility] [place] [facility] Jun 19, 2004 01:34 PM LIFETIME NON-TOBACCO USER [place] [facility] Advance Directives: All historical and current Section Date Range: From patient's date of to the date document was created. This section includes ALL of a patient's completed or amended [place] Advance and Rescinded Directives. The entries below indicate that a directive exists for the patient, but an actual copy is not included with this document. The data comes from all [place] facilities. Date Advance Directives Provider Source May 20, 2006 ADVANCE DIRECTIVE MARINA FAJARDO [place] CNT [place] [facility] Encounter Notes: All associated encounter notes This section contains the clinical notes associated to the Encounter. Date/Time Encounter Note(s) Provider Source Dec 16, 2023 12:00 AM NONVA CONSULT: LOCAL TITLE: COMMUNITY CARE-CONSULT RESULT NOTE STANDARD TITLE: NONVA CONSULT DATE OF NOTE: DEC 16, 2023 ENTRY DATE: DEC 25, 2023@08:06:42 AUTHOR: ISABEL SLOAN MA EXP COSIGNER: URGENCY: STATUS: COMPLETED VistA Imaging - Scanned Document SCANNED DOCUMENT SIGNATURE NOT REQUIRED Electronically Filed: 12/25/2023 by: ISABEL SLOAN WHEEL BUFFER ISABEL SLOAN [place] [facility]
--- OUTSIDE RECORDS SUMMARY | 2024-09-12 23:13 | XMS_ITS | Encounter Summary ---
Author Name [place] Address [address] [place] [address] Care Team Providers Care Algology Teacher Name Role Phone OLIVA PÉREZ Primary Care [...] TOMER BOWMANBS OF [facility] [employer] GE Apr 03, 2009 [id number] FRANCIS MANCIA SPOUSE BCBS [facility] DOWNTOWNO BLUE* Apr 03, 2009 [id number] BLANCHE, JANET SPOUSE BCBS [facility] [employer] GE Apr 03, 2009 [id number] [phone] FRACNIS MANCIA SPOUSE [employer] ([id number]) PRESCRIPT ION L4TA* Apr 03, 2009 L4TA [id number] FRANCIS MANCIA SPOUSE [employer] ([id number]) PRESCRIPT ION L4TA* Apr 03, 2009 L4TA [id number] FRANCIS MANCIA SPOUSE [employer] ([id number]) PRESCRIPT ION Apr 03, 2009 L4TA [id number] FRANCIS MANCIA SPOUSE MEDICARE (WNR) MEDICARE (M) PART B Jun 04, 2020 PART B [id number] RAÚL MANCIA PATIENT MEDICARE (WNR) MEDICARE (M) PART A Oct 04, 2006 PART A [id number] RAÚL MANCIA PATIENT MEDICARE (WNR) MEDICARE (M) PART A Oct 04, 2006 PART A [id number] RAÚL MANCIA PATIENT Selected Encounter This section includes the information on record at [place] for the Encounter. Date/Time Encounter Type Encounter Description Reason Pro vider Source Oct 11, 2023 12:00 AM Outpatient Encounter COMMUNITY CARE CONSULT IHE Encounter Template Text not used by [place] Plan of Treatment: Future Appointments (+ 6 months) and Future Tests (+/- 45 days) The Plan of Treatment section includes future care activities for the patient from all [place] treatmentfacilities. This section includes future appointments and future orders which are active, pending or scheduled. Future Appointments This section includes appointments that were scheduled to occur 6 months from the date of the Encounter, up to a maximum of 20 appointments. The data comes from all [facility]. Appointment Date/Time Appointment Type Appointme nt Facility Name Dec 16, 2023 11:00 AM AMBULATORY - MEDICINE [facility] Jan 11, 2024 10:00 AM AMBULATORY MEDICINE [facility] Jan 17, 2024 07:30 AM AMBULATORY MEDICINE [facility] Active, Pending, and Scheduled Orders This section includes a listing of several types of active, pending, and scheduled orders, including clinic medications orders, diagnostic test orders, procedure orders and consult orders; where the start date of the order is 45 days before the date of the Encounter or 45 days after the date of theEncounter. The data comes from all [facility]. Test Date/Time Test Type Test Details Facility Name Oct 01, 2023 12:00 AM Laboratory - Chemistry Order URINALYSIS CLEAN CATCH URINE SP [facility] Lab Results: +/- 30 days of the encounter This section includes the Chemistry and Hematology Lab Results on record with [place] for the patient. Radiology Reports and Pathology Reports are provided separately, in subsequent sections. Lab Results This section contains the Chemistry/Hematology Results that were resulted 30 days before or 30 daysafter the date of the Encounter. Date/Time Source Result Type Result - Unit Interpretation Reference Range Comment Oct 01, 2023 07:31 AM [facility] URIC ACID Specimen Type: SERUM No comment entered. Ordering Provider: OLIVA PÉREZ Report Released Date/Time: Sep 26, 2023 06:56 PM Reporting Lab: [address] [address] Performing Lab: [address] [address] URIC ACID 5.6 mg/dL 3.5-7.2 Oct 01, 2023 07:31 AM [facility] TSH Specimen Type: SERUM No comment entered. Ordering Provider: OLIVA PÉREZ Report Released Date/Time: Sep 26, 2023 06:56 PM Reporting Lab: [address] [address] Performing Lab: [address] [address] TSH 1.01 u[IU]/mL 0.35-5.00 Oct 01, 2023 07:31 AM [facility] LIVER FUNCTION Specimen Type: SERUM No comment entered. Ordering Provider: OLIVA PÉREZ Report Released Date/Time: Sep 26, 2023 06:56 PM Reporting Lab: [address] [address] Performing Lab: [address] [address] PROTEIN,TOTAL 6.4 g/dL 6.0-8.3 ALBUMIN 3.7 g/dL 3.5-5.0 ALKALINE PHOSPHATASE 130 U/L 40-150 AST 16 U/L 5-34 ALT 12 U/L BILIRUBIN, TOTAL 0.4 mg/dL 0.2-1.2 Oct 01, 2023 07:31 AM [facility] BASIC METABOLIC PANEL (fasting) Specimen Type: SERUM No comment entered. Ordering Provider: OLIVA PÉREZ Report Released Date/Time: Sep 26, 2023 06:56 PM Reporting Lab: [address] [address] Performing Lab: [address] [address] UREA NITROGEN 25 mg/dL 7-25 GLUCOSE 105 mg/dL H 65-100 SODIUM 139 mmol/L 135-145 POTASSIUM 4.3 mmol/L 3.5-5.0 CHLORIDE 106 mmol/L 100-110 CO2 23 meq/L 20-30 CREATININE, Serum 0.85 mg/dL 0.50-1.40 eGFR(CKD-EPI 2020) 89 mL/min >60 Oct 01, 2023 07:31 AM [facility] LIPID PANEL FASTING Specimen Type: SERUM No comment entered. Ordering Provider: OLIVA PÉREZ Report Released Date/Time: Sep 26, 2023 06:56 PM Reporting Lab: [address] [address] Performing Lab: [address] [address] CHOLESTEROL 183 mg/dL TRIGLYCERIDE 104 mg/dL 0-150 LDL calculated 114 mg/dL 0-129 CHOL/HDL 3.8 HDL CHOLESTEROL 48 mg/dL 40-60 Oct 01, 2023 07:31 AM [facility] CBC AND DIFF (AUTO) Specimen Type: BLOOD No comment entered. Ordering Provider: LOIVA PÉREZ Report Released Date/Time: Sep 26, 2023 06:56 PM Reporting Lab: [address] [address] Performing Lab: [address] [address] WBC 6.28 10*3/uL 4.50-11.00 RBC 4.75 10*6/uL 4.23-5.66 HGB 12.0 g/dL L 12.8-17 HCT 38.4 L 39.2-50.4 MCV 80.8 fL L 82-99 MCHC 31.3 g/dL 30.8-35.1 PLT 190 10*3/uL 140-360 RDW-CV 15.2 12.0-16.0 [place], Abs 0.56 10*3/uL 0.30-1.10 MCH 25.3 pg L 26.2-32.6 Neut % 73.1 43.7-75.8 Lymph % 13.5 L 14.0-42.3 [place] % 8.9 5.1-13.7 Eos % 3.7 0.4-6.8 [...] and tobacco- related health factors from the [place] facility where the Encounter took place. Current Smoking Status This section includes the most current smoking, or tobacco-related health factor, from the [place] facility where the Encounter took place. Date/Time Current Smoking Status Comment Ronald vaz Jan 27, 2023 10:00 AM [facility] Tobacco Use History This section includes a history of the smoking, or tobacco-related health factors, that were collected on or before the date of the Encounter. The data comes from the [place] facility where the Encounter took place. Date/Time Smoking Status/Tobacco Use Comment F otis Jan 06, 2022 09:00 AM VA-TOBACCO NEVER USED [place] [facility] Dec 31, 2020 08:00 AM VA-TOBACCO NEVER USED [place] [facility] Dec 27, 2019 09:48 AM VA-TOBACCO NEVER USED [place] [facility] [place] [facility] Jun 30, 2018 08:41 AM VA-TOBACCO NEVER USED [facility] [place] [facility] Dec 23, 2017 07:46 AM LIFETIME NON-TOBACCO USER [facility] [place] [facility] Dec 22, 2016 08:06 AM LIFETIME NON-TOBACCO USER [facility] [place] [facility] Dec 24, 2015 08:36 AM LIFETIME NON-TOBACCO USER [facility] [place] [facility] Jun 19, 2004 01:52 PM LIFETIME NON-SMOKER [facility] [place] [facility] Jun 19, 2004 01:52 PM LIFETIME NON-TOBACCO USER [facility] [place] [facility] Jun 19, 2004 01:34 PM LIFETIME NON-SMOKER [place] [facility] [place] [facility] Jun 19, 2004 01:34 PM LIFETIME NON-TOBACCO USER [facility] [place] [facility] Advance Directives: All historical and current Section Date Range: From patient's date of to the date document was created. This section includes ALL of a patient's completed or amended [place] Advance and Rescinded Directives. The entries below indicate that a directive exists for the patient, but an actual copy is not included with this document. The data comes from all [place] facilities. Date Advance Directives Provider Source May 20, 2006 ADVANCE DIRECTIVE MARINA FAJARDO [place] [facility] Encounter Notes: All associated encounter notes This section contains the clinical notes associated to the Encounter. Date/Time Encounter Note(s) Provider Source Oct 11, 2023 12:00 AM NONVA CONSULT: LOCAL TITLE: COMMUNITY CARE-CONSULT RESULT NOTE STANDARD TITLE: NONVA CONSULT DATE OF NOTE: OCT 11, 2023 ENTRY DATE: DEC 25, 2023@08:08:59 AUTHOR: ISABEL SLOAN MA EXP COSIGNER: URGENCY: STATUS: COMPLETED VistA Imaging - Scanned Document SCANNED DOCUMENT SIGNATURE NOT REQUIRED Electronically Filed: 12/25/2023 by: ISABEL SLOAN OPERATIONS ACCOUNTANT ISABEL SLOAN [place] CNTR[facility]
--- OUTSIDE RECORDS SUMMARY | 2024-09-12 23:13 | XMS_ITS ---
Author Name [place] Address [address] [place] [address] Care Team Providers Care Respiratory Manager Name Role Phone OLIVA PÉREZ Primary Care [...] Relationship to Policy Root TOMER ROBLES OF [facility] [employer] GE Apr 03, 2009 [id number] BLANCHEFRANCIS HERNANDEZ SPOUSE BCBS [facility] BLUE* Apr 03, 2009 [id number] [phone] BLANCHE, JANET SPOUSE BCBS [facility] [employer] GE Apr 03, 2009 [id number] [phone] FRANCIS MANCIA SPOUSE [employer] ([id number]) PRESCRIPT ION L4TA* Apr 03, 2009 L4TA [id number] FRANCIS MANCIA SPOUSE [employer] ([id number]) PRESCRIPT ION L4TA* Apr 03, 2009 L4TA [id number] FRANCIS MANCIA SPOUSE [employer] ([id number]) PRESCRIPT ION Apr 03, 2009 L4TA [id number] FRANCIS MANCIA SPOUSE MEDICARE (WNR) MEDICARE (M) PART B Jun 04, 2020 PART B [id number] [phone] RAÚL MANCIA PATIENT MEDICARE (WNR) MEDICARE (M) PART A Oct 04, 2006 PART A [id number] RAÚL MANCIA PATIENT MEDICARE (WNR) MEDICARE (M) PART A Oct 04, 2006 PART A [id number] RAÚL MANCIA PATIENT Selected Encounter This section includes the information on record at CT for the Encounter. Date/Time Encounter Type Encounter Description Reason Pro vider Source Jan 11, 2024 12:00 AM Outpatient Encounter EVENT (HISTORICAL) IHE Encounter Template Text not used by [...] Appointment Type Appointme nt Facility Name Jan 17, 2024 07:30 AM AMBULATORY - MEDICINE [facility] [place] [facility] May 08, 2024 01:00 PM AMBULATORY - MEDICINE [facility] C [facility] [place] [facility] May 30, 2024 03:30 PM AMBULATORY - MEDICINE CT C [facility] [place] [facility] Lab Results: +/- 30 days [...] Range Comment Jan 05, 2024 07:30 AM [facility] URIC ACID Specimen Type: SERUM No comment entered. Ordering Provider: OLIVA PÉREZ Report Released Date/Time: Dec 31, 2023 11:06 AM Reporting Lab: [address] [address] Performing Lab: [address] [address] URIC ACID 5.3 mg/dL 3.5-7.2 Jan 05, 2024 07:30 AM [facility] URINALYSIS CLEAN CATCH Specimen Type: URINE Comment: If Glucose = >500 and Ketones are positive, please alert the Physician. Ordering Provider: OLIVA PÉREZ Report Released Date/Time: Dec 31, 2023 11:06 AM Reporting Lab: [address] [address] Performing Lab: [address] [address] UA COLOR Light-Yellow Yellow UA APPEARANCE Clear Clear UA GLUCOSE NEGATIVE mg/dL Negative UA KETONES NEGATIVE mg/dL Negative UA BLOOD NEGATIVE mg/dL Negative UA PROTEIN NEGATIVE mg/dL Negative UA NITRITE NEGATIVE mg/dL Negative UA BILIRUBIN NEGATIVE mg/dL Negative UA SPECIFIC GRAVITY 1.023 H 1.016-1.022 UA pH 6.5 5.0-9.0 UA UROBILINOGEN <2.0 mg/dL <2.0 UA LEUKOCYTE NEGATIVE Negative Jan 05, 2024 07:30 AM [facility] BASIC METABOLIC PANEL (fasting) Specimen Type: SERUM No comment entered. Ordering Provider: OLIVA PÉREZ Report Released Date/Time: Dec 31, 2023 11:06 AM Reporting Lab: [address] [address] Performing Lab: [address] [address] UREA NITROGEN 21 mg/dL 7-25 GLUCOSE 116 mg/dL H 65-100 SODIUM 139 mmol/L 135-145 POTASSIUM 4.3 mmol/L 3.5-5.0 CHLORIDE 104 mmol/L 100-110 CO2 24 meq/L 20-30 CREATININE, Serum 0.90 mg/dL 0.50-1.40 eGFR(CKD-EPI 2020) 88 mL/min >60 Jan 05, 2024 07:30 AM [facility] LIVER FUNCTION Specimen Type: SERUM No comment entered. Ordering Provider: OLIVA PÉREZ Report Released Date/Time: Dec 31, 2023 11:06 AM Reporting Lab: [address] [address] Performing Lab: [address] [address] PROTEIN,TOTAL 6.2 g/dL 6.0-8.3 ALBUMIN 2.9 g/dL L 3.5-5.0 ALKALINE PHOSPHATASE 234 U/L H 40-150 AST 18 U/L 5-34 ALT 16 U/L BILIRUBIN, TOTAL 0.4 mg/dL 0.2-1.2 Jan 05, 2024 07:30 AM [facility] LIPID PANEL FASTING Specimen Type: SERUM No comment entered. Ordering Provider: OLIVA PÉREZ Report Released Date/Time: Dec 31, 2023 11:06 AM Reporting Lab: [address] [address] Performing Lab: [address] [address] CHOLESTEROL 164 mg/dL TRIGLYCERIDE 112 mg/dL 0-150 LDL calculated 110 mg/dL 0-129 CHOL/HDL 5.1 HDL CHOLESTEROL 32 mg/dL L 40-60 Jan 05, 2024 07:30 AM [facility] CBC AND DIFF (AUTO) Specimen Type: BLOOD No comment entered. Ordering Provider: OLIVA PÉREZ Report Released Date/Time: Dec 31, 2023 11:06 AM Reporting Lab: [address] [address] Performing Lab: [address] [address] WBC 7.18 10*3/uL 4.50-11.00 RBC 5.04 10*6/uL 4.23-5.66 HGB 12.4 g/dL L 12.8-17 HCT 39.0 L 39.2-50.4 MCV 77.4 fL L 82-99 MCHC 31.8 g/dL 30.8-35.1 PLT 324 10*3/uL 140-360 RDW-CV 15.2 12.0-16.0 [place], Abs 0.67 10*3/uL 0.30-1.10 MCH 24.6 pg L 26.2-32.6 Neut % 79.5 H 43.7-75.8 Lymph % 10.6 L 14.0-42.3 [place] % 9.3 5.1-13.7 Eos % 0.0 L 0.4-6.8 Baso % 0.3 0.1-2.0 Neut, Abs 5.71 10*3/uL 2.20-7.60 Lymph, Abs 0.76 10*3/uL L 1.00-3.20 Eos, Abs 0.00 10*3/uL L 0.03-0.44 Baso, Abs 0.02 10*3/uL 0.01-0.13 Immature Gran % 0.3 0.0-0.7 Immature Gran, Abs 0.02 10*3/uL 0.00-0.06 Jan 05, 2024 07:[address] [email or web address] Anderson AerospaceCREEK NATION COMMUN[facility] OKEMAHElectrolytic [employer]zone [facility] TSH Specimen Type: SERUM No comment entered. Ordering Provider: OLIVA PÉREZ Report Released Date/Time: Dec 31, 2023 11:06 AM Reporting Lab: [facility] [address] [facility] [address] Performing Lab: [address] [address] TSH 3.18 u[IU]/mL 0.35-5.00 Vital Signs: All taken on the encounter date This section contains inpatient and outpatient Vital Signs collected on the date of the Encounter. Date/Time Temperature Pulse Blood Pressure Respiratory Rate SP02 Pain Height Weight Body Mass Index Source Jan 11, 2024 10:00 AM 98.1 97 107/70 16 96 0 72 186 25 [facility] Social History: Smoking Status (Most current) and [...] Current Smoking Status Comment Ronald ity Jan 11, 2024 10:00 AM VA-TOBACCO NEVER USED CT [facility] [place] [facility] Tobacco Use History This section includes a history of the smoking, or tobacco-related health factors, that were collected on or before the date of the Encounter. The data comes from the [place] facility where the Encounter took place. Date/Time Smoking Status/Tobacco Use Comment Yadiel acility Jan 27, 2023 10:00 AM VA-TOBACCO NEVER USED [facility] [place] [facility] Jan 06, 2022 09:00 AM VA-TOBACCO NEVER USED [facility] [place] [facility] Dec 31, 2020 08:00 AM VA-TOBACCO NEVER USED [facility] [place] [facility] Dec 27, 2019 09:48 AM VA-TOBACCO NEVER USED [facility] [place] [facility] Jun 30, 2018 08:41 AM VA-TOBACCO NEVER USED [facility] [place] [facility] Dec 23, 2017 07:46 AM LIFETIME NON-TOBACCO USER [facility] [place] [facility] Dec 22, 2016 08:06 AM LIFETIME NON-TOBACCO USER [facility] [place] [facility] Dec 24, 2015 08:36 AM LIFETIME NON-TOBACCO USER [facility] [place] [facility] Jun 19, 2004 01:52 PM LIFETIME NON-SMOKER [facility] [place] [facility] Jun 19, 2004 01:52 PM LIFETIME NON-TOBACCO USER [facility] [place] [facility] Jun 19, 2004 01:34 PM LIFETIME NON-SMOKER [facility] [place] [facility] Jun 19, 2004 01:34 PM LIFETIME NON-TOBACCO USER [facility] [place] [facility] Advance Directives: All historical and current Section Date Range: From patient's date of to the date document was created. This section includes ALL of a patient's completed or amended VA Advance and Rescinded Directives. The entries below indicate that a directive exists for the patient, but an actual copy is not included with this document. The data comes from all [place] facilities. Date Advance Directives Provider Source May 20, 2006 ADVANCE DIRECTIVE MARINA FAJARDO [facility]
--- OUTSIDE RECORDS SUMMARY | 2024-09-12 23:13 | XMS_ITS ---
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 Name Role Phone OLIVA PEGUERO Primary Care [...] Relationship to Policy Root TOMER BOWMANBS OF [facility] [employer] GE Apr 03, 2009 [id number] BLANCHEFRANCIS HERNANDEZ SPOUSE BCBS [facility] BLUE* Apr 03, 2009 [id number] BLANCHE, JANET SPOUSE BCBS [facility] [employer] GE Apr 03, 2009 [id number] [phone] FRANCIS MANCIA SPOUSE [employer] ([id number]) PRESCRIPT ION L4TA* Apr 03, 2009 L4TA [id number] FRANCIS MANCIA SPOUSE [employer] ([id number]) PRESCRIPT ION L4TA* Apr 03, 2009 L4TA [id number] FRANCIS MANCIA SPOUSE [employer] ([id number]) PRESCRIPT ION Apr 03, 2009 L4TA [id number] FRANCIS MANCIA SPOUSE MEDICARE (WNR) MEDICARE (M) PART B Jun 04, 2020 PART B [id number] RAÚL MANCIA PATIENT MEDICARE (WNR) MEDICARE (M) PART A Oct 04, 2006 PART A [id number] RAÚL MANCIA PATIENT MEDICARE (WNR) MEDICARE (M) PART A Oct 04, 2006 PART A [id number] [phone] RAÚL MANCIA PATIENT Selected Encounter This section includes the information on record at [place] for the Encounter. Date/Time Encounter Type Encounter Description Reason Provider Source Jan 11, 2024 10:00 AM OFFICE O/P EST LOW 20 MIN PRIMARY CARE/MEDICINE ICD-10-CM C15.9 Malignant neoplasm of esophagus, unspecified OLIVA PEGUERO [facility] Encounter Template Text not used by [place] Assessments - Encounter Diagnoses This section includes the primary and secondary diagnoses documented for the Encounter. Date/Time Primary/Secondary Diagnosis Diagnosis Name Provider Source Jan 11, 2024 10:31 AM PRIMARY Malignant neoplasm of esophagus, unspecified [facility] [place] [facility] Jan 11, 2024 10:31 AM SECONDARY Essential (primary) hypertension [facility] [place] [facility] Plan of Treatment: Future Appointments (+ 6 [...] 17, 2024 07:30 AM AM[facility] - [facility] [place] [facility] May 08, 2024 01:00 PM [facility]ORY [facility] [facility] May 30, 2024 03:30 PM AMBULATORY - MEDICINE [facility] Lab Results: +/- 30 days of the [...] Range Comment Jan 05, 2024 07:30 AM [facility] URIC ACID Specimen Type: SERUM No comment entered. Ordering Provider: OLIVA PEGUERO Report Released Date/Time: Dec 31, 2023 11:06 AM Reporting Lab: [address] [address] Performing Lab: [address] [address] URIC ACID 5.3 mg/dL 3.5-7.2 Jan 05, 2024 07:30 AM [facility] URINALYSIS CLEAN CATCH Specimen Type: URINE Comment: If Glucose = >500 and Ketones are positive, please alert the Physician. Ordering Provider: OLIVA PEGUERO Report Released Date/Time: Dec 31, 2023 11:06 AM Reporting Lab: [address] [address] Performing Lab: [address] [address] UA COLOR Light-Yellow Yellow UA APPEARANCE Clear Clear UA GLUCOSE NEGATIVE mg/dL Negative UA KETONES NEGATIVE mg/dL Negative UA BLOOD NEGATIVE mg/dL Negative UA PROTEIN NEGATIVE mg/dL Negative UA NITRITE NEGATIVE mg/dL Negative UA BILIRUBIN NEGATIVE mg/dL Negative UA SPECIFIC GRAVITY 1.023 H 1.016-1.022 UA pH 6.5 5.0-9.0 UA UROBILINOGEN <2.0 mg/dL <2.0 UA LEUKOCYTE NEGATIVE Negative Jan 05, 2024 07:30 AM [facility] BASIC METABOLIC PANEL (fasting) Specimen Type: SERUM No comment entered. Ordering Provider: OLIVA PEGUERO Report Released Date/Time: Dec 31, 2023 11:06 AM Reporting Lab: [facility] [address] [facility] [address] Performing Lab: [address] [address] UREA NITROGEN 21 mg/dL 7-25 GLUCOSE 116 mg/dL H 65-100 SODIUM 139 mmol/L 135-145 POTASSIUM 4.3 mmol/L 3.5-5.0 CHLORIDE 104 mmol/L 100-110 CO2 24 meq/L 20-30 CREATININE, Serum 0.90 mg/dL 0.50-1.40 eGFR(CKD-EPI 2020) 88 mL/min >60 Jan 05, 2024 07:30 AM [facility] LIVER FUNCTION Specimen Type: SERUM No comment entered. Ordering Provider: OLIVA PEGUERO Report Released Date/Time: Dec 31, 2023 11:06 AM Reporting Lab: [address] [address] Performing Lab: [address] [address] PROTEIN,TOTAL 6.2 g/dL 6.0-8.3 ALBUMIN 2.9 g/dL L 3.5-5.0 ALKALINE PHOSPHATASE 234 U/L H 40-150 AST 18 U/L 5-34 ALT 16 U/L BILIRUBIN, TOTAL 0.4 mg/dL 0.2-1.2 Jan 05, 2024 07:30 AM [facility] LIPID PANEL FASTING Specimen Type: SERUM No comment entered. Ordering Provider: OLIVA PEGUERO Report Released Date/Time: Dec 31, 2023 11:06 AM Reporting Lab: [address] [address] Performing Lab: [address] [address] CHOLESTEROL 164 mg/dL TRIGLYCERIDE 112 mg/dL 0-150 LDL calculated 110 mg/dL 0-129 CHOL/HDL 5.1 HDL CHOLESTEROL 32 mg/dL L 40-60 Jan 05, 2024 07:30 AM [facility] TSH Specimen Type: SERUM No comment entered. Ordering Provider: OLIVA PEGUERO Report Released Date/Time: Dec 31, 2023 11:06 AM Reporting Lab: [facility] [address] [facility] [address] Performing Lab: [facility] [address] [facility] [address] TSH 3.18 u[IU]/mL 0.35-5.00 Jan 05, 2024 07:30 AM [facility] CBC AND DIFF (AUTO) Specimen Type: BLOOD No comment entered. Ordering Provider: OLIVA PEGUERO Report Released Date/Time: Dec 31, 2023 11:06 AM Reporting Lab: [facility] [address] [facility] [address] Performing Lab: [facility] [address] [facility] [address] WBC 7.18 10*3/uL 4.50-11.00 RBC 5.04 10*6/uL 4.23-5.66 HGB 12.4 g/dL L 12.8-17 HCT 39.0 L 39.2-50.4 MCV 77.4 fL L 82-99 MCHC 31.8 g/dL 30.8-35.1 PLT 324 10*3/uL 140-360 RDW-CV 15.2 12.0-16.0 [place], Abs 0.67 10*3/uL 0.30-1.10 MCH 24.6 pg L 26.2-32.6 Neut % 79.5 H 43.7-75.8 Lymph % 10.6 L 14.0-42.3 [place] % 9.3 5.1-13.7 Eos % 0.0 L [...] 107/70 16 96 0 72 186 25 [facility] [place] [facility] Social History: Smoking Status (Most current) and [...] Current Smoking Status Comment Facil ity Jan 11, 2024 10:00 AM VA-TOBACCO NEVER USED [facility] [place] [facility] Tobacco Use History This section includes a history of the smoking, or tobacco-related health factors, that were collected on or before the date of the Encounter. The data comes from the [place] facility where the Encounter took place. Date/Time Smoking Status/Tobacco Use Comment F acility Jan 27, 2023 10:00 AM VA-TOBACCO NEVER USED [facility] [facility] Jan 06, 2022 09:00 AM VA-TOBACCO NEVER USED [facility] [place] [facility] Dec 31, 2020 08:00 AM VA-TOBACCO NEVER USED [facility] [place] [facility] Dec 27, 2019 09:48 AM VA-TOBACCO NEVER USED [facility] [place] [facility] Jun 30, 2018 08:41 AM VA-TOBACCO NEVER USED [facility] [place] [facility] Dec 23, 2017 07:46 AM LIFETIME NON-TOBACCO USER [facility] [facility] Dec 22, 2016 08:06 AM LIFETIME NON-TOBACCO USER [facility] [facility] Dec 24, 2015 08:36 AM LIFETIME NON-TOBACCO USER [facility] [place] [facility] Jun 19, 2004 01:52 PM LIFETIME NON-SMOKER [facility] [place] [facility] Jun 19, 2004 01:52 PM LIFETIME NON-TOBACCO USER [facility] [place] [facility] Jun 19, 2004 01:34 PM LIF[facility]MOKER [facility] Jun 19, 2004 01:34 PM LIFETIME NON-TOBACCO USER [facility] Advance Directives: All historical and current Section [...] May 20, 2006 ADVANCE DIRECTIVE [facility] Encounter Notes: All associated encounter notes This section contains the clinical notes associated to the Encounter. Date/Time Encounter Note(s) Provider Source Jan 11, 2024 10:26 AM PHYSICIAN NOTE: LOCAL TITLE: MD NOTE STANDARD TITLE: PHYSICIAN NOTE DATE OF NOTE: JAN 11, 2024@10:26 ENTRY DATE: JAN 11, 2024@10:26:11 AUTHOR: OLIVA PEGUERO EXP COSIGNER: URGENCY: STATUS: COMPLETED Patient Name: RAÚL MANCIA VITALS: Patient temperature: 98.1 F [36.7 C] (01/11/2024 10:00) Blood pressure: 107/70 (01/11/2024 10:00) Patient height: 72 in [182.9 cm] (01/11/2024 10:00) Patient weight: 186 lb [84.37 kg] (01/11/2024 10:00) Patient BMI: BMI: 25.3 Patient pulse: 97 (01/11/2024 10:00) Patient respiration: 16 (01/11/2024 10:00) Patient Pulse Oximetry: 96% (01/11/2024 10:00) Pain Ratin (01/11/2024 10:00) Active [facility] Medications: Active Outpatient Medications (including Supplies): Active Outpatient Medications Status 1) ALLOPURINOL 100MG TAB TAKE TWO TABLETS BY MOUTH EVERY ACTIVE DAY FOR GOUT 2) DIPHENHYDRAMINE HCL 25MG CAP TAKE ONE CAPSULE BY ACTIVE MOUTH TWICE DAILY NEEDED FOR CHRONIC TROUBLE SLEEPING 3) FEED BAG W/GRAVTY SET ENFIT COVID#118201 USE 1 ACTIVE GRAVITY BAG TOPICALLY ONCE DAILY FOR NUTRITION 4) GAUZE PAD 4IN X 4IN NONSTERILE APPLY GAUZE(S) ACTIVE TOPICALLY ONCE DAILY 5) GUAIFENESIN 600MG SA TAB TAKE ONE TABLET BY MOUTH ACTIVE TWICE DAILY NEEDED FOR COUGH FOLLOW DOSE WITH FULL GLASS OF WATER 6) IRRIGATION KIT W/PISTON SYRINGE K#11030 USE 1 ACTIVE IRRIGATION KIT DIRECTED EVERY MONTH 7) NUTR SUPL OSMOLITE 1.2 RITESH LIQUID DRINK 1 CAN VIA ACTIVE G-TUBE 9 TIMES A DAY FOR NUTRITIONAL SUPPLEMENTATION 8) SIMVASTATIN 80MG TAB TAKE ONE-HALF TABLET BY MOUTH AT ACTIVE BEDTIME FOR CHOLESTEROL 9) SYRINGE, IRRIGATION W/BULB 60CC USE 1 SYRINGE HOLD TOPICALLY ONCE DAILY DIRECTED FOR FLUSHING ENFIT CONNECTOR 10) AMAIRANI SULLIVAN ENTERAL,ICU MEDICAL #4680 USE 1 VALVE ACTIVE ONCE A WEEK Remote Medications: No Active Remote Medications for this patient clinical counselor note Chief complaint: Esophageal cancer History of present illness Patient is receiving immunotherapy for esophageal cancer. He has received radiation therapy and chemotherapy. He feels well today with no complaints. He is swallowing liquids and solids normally. Review of systems No chest pain or dyspnea No abdominal pain No trouble urinating No fever or chills No cough Physical examination Well-developed well-nourished male no acute distress Coronary no murmur Lungs clear Carotid no bruit Abdomen positive bowel sounds soft nontender no masses No peripheral edema Mucous membranes moist WBC: 7.18 RBC: 5.04 HGB: 12.4 L HCT: 39.0 L MCV: 77.4 L MCHC: 31.8 RDW: 15.2 PLT: 324 MCH: 24.6 L Neut %: 79.5 H Lymph %: 10.6 L [place] %: 9.3 Eos %: 0.0 L Baso %: 0.3 Neut, Abs: 5.71 Lymph, Abs: 0.76 L [place], Abs: 0.67 Eos, Abs: 0.00 L Baso, Abs: 0.02 Immature Granulocytes %: 0.3 Immature Granulocytes, Abs: 0.02 GLUCOSE: 116 H UREA NITROGEN: 21 SODIUM: 139 POTASSIUM: 4.3 CHLORIDE: 104 CO2: 24 URIC ACID: 5.3 CHOLESTEROL: 164 PROTEIN,TOTAL: 6.2 ALBUMIN: 2.9 L ALKALINE PHOSPHATASE: 234 H SGOT: 18 SGPT: 16 TRIGLYCERIDE: 112 LDL CHOL: 110 CHOL/HDL RATIO: 5.1 HDL: 32 L BILIRUBIN,TOT.: 0.4 TSH (Access): 3.18 CREATININE-EGFR: 0.90 eGFR CKD-EPI 2020: 88 Color, Urine (AX 4280): Light-Yellow Appearance, Urine (AX 4280): Clear Glucose, Urine (AX 4280): NEGATIVE Ketones, Urine (AX 4280): NEGATIVE Blood, Urine (AX 4280): NEGATIVE Protein, Urine (AX 4280): NEGATIVE Nitrite, Urine (AX 4280): NEGATIVE Bilirubin, Urine (AX 4280): NEGATIVE Specific [place], (AX 4280): 1.023 H pH, Urine ([id number]): 6.5 Urobilinogen, Urine (AX 4280): <2.0 Leukocyte Esterase, (AX 4280): NEGATIVE I discussed above test results with patient Assessment and plan: 1. Esophageal cancer: Improving in response to therapy Plan continue oncology 2. Hypertension: Patient has lost 60 pounds as a result of this esophageal cancer. As result, he no longer has hypertension. He has not taken blood pressure medication in 3 months. Blood pressure is normal today without medication. Plan: Discontinue metoprolol Follow-up 4 months clinic visit and lab Medication Reconciliation: Outpatient: Has the patient been taking medications as documented in the EMLR? YES: The patient has been taking medications as documented in the EMLR. Essential Medication List for Review used to complete this medication reconciliation. INCLUDED IN THIS LIST: Alphabetical list of active outpatient prescriptions dispensed from this [facility] (local) and dispensed from another [place] or DoD facility (remote) as well as [...] to the next appointment, whether with a [place] or non-[place] provider. Follow Up Colonoscopy: Colonoscopy is due based on information available to this reminder. Colorectal cancer screening/surveillance will be stopped. Reason: No personal or family history of colon cancer or polyps /delores/ Oliva Peguero MD Staff Physician Signed: 01/11/2024 10:31 OLIVA PEGUERO [facility] Jan 11, 2024 10:02 AM PREVENTIVE MEDICIN E NURSING NOTE: LOCAL TITLE: CLINICAL REMINDERS/NURSING STANDARD TITLE: PREVENTIVE MEDICINE NURSING NOTE DATE OF NOTE: JAN 11, 2024@10:02 ENTRY DATE: JAN 11, 2024@10:02:14 AUTHOR: F[employer] [place] EXP COSIGNER: URGENCY: STATUS: COMPLETED Advance Directive Screen MH AD: Patient has an Advance Directive on file at this [facility]. No updates are needed at this time. The patient received education about Advance Directives and written notification of his/her rights. Tobacco Use Screening: The patient has never used tobacco. /delores/ FAB FRANCE LPN License Practical Nurse Signed: 01/11/2024 10:02 FAB FRANCE [facility]
--- OUTSIDE RECORDS SUMMARY | 2024-09-12 23:13 | XMS_ITS | Encounter Summary ---
Author Name [facility] [place] Address [address] [place] [id number] Care Team Providers Care Manager Wound Name Role Phone OLIVA PÉREZ Primary Care [...] Relationship to Policy Root TOMER ROBLES OF [facility] [employer] GE Apr 03, 2009 [id number] BLANCHE, JANET SPOUSE [facility] Apr 03, 2009 [id number] BLANCHE, JANET SPOUSE BCBS [facility] [employer] [place] [employer] GE Apr 03, 2009 [id number] FRANCIS MANCIA SPOUSE [employer] S[employer]IP[employer] ([id number]) PRESCRIPT ION L4TA* Apr 03, 2009 L4TA [id number] FRANCIS MANCIA SPOUSE [employer] ([id number]) PRESCRIPT ION L4TA* Apr 03, 2009 L4TA [id number] FRANCIS MANCIA SPOUSE [employer] ([id number]) PRESCRIPT ION Apr 03, 2009 L4TA [id number] FRANCIS MANCIA SPOUSE MEDICARE (WNR) MEDICARE (M) PART B Jun 04, 2020 PART B [id number] [phone] RAÚL MANCIA PATIENT MEDICARE (WNR) MEDICARE (M) PART A Oct 04, 2006 PART A [id number] RAÚL MANCIA PATIENT MEDICARE (WNR) MEDICARE (M) PART A Oct 04, 2006 PART A [id number] RAÚL MANCIA PATIENT Selected Encounter This section includes the information on record at [place] for the Encounter. Date/Time Encounter Type Encounter Description Reason Pro vider Source Jan 03, 2024 01:12 PM Outpatient Encounter PRIMARY CARE/MEDICINE IHE Encounter Template Text not used by [place] Plan of Treatment: Future Appointments (+ 6 months) and Future Tests (+/- 45 days) The Plan of Treatment section includes future care activities for the patient from all [place] treatmentfacilities. This section includes future appointments and future orders which are active, pending or scheduled. Future Appointments This section includes appointments that were scheduled to occur 6 months from the date of the Encounter, up to a maximum of 20 appointments. The data comes from all [place] treatment facilities. Appointment Date/Time Appointment Type Appointme nt Facility Name Jan 11, 2024 10:00 AM AMBULATORY - MEDICINE [facility] [place] [facility] Jan 17, 2024 07:30 AM AMBULATORY MEDICINE [facility] [place] [facility] May 08, 2024 01:00 PM AMBULATORY MEDICINE [facility] [place] [facility] May 30, 2024 03:30 PM AMBULATORY MEDICINE [facility] [place] [facility] Lab Results: +/- 30 days of the encounter This section includes the Chemistry and Hematology Lab Results on record with [place] for the patient. Radiology Reports and Pathology Reports are provided separately, in subsequent sections. Lab Results This section contains the Chemistry/Hematology Results that were resulted 30 days before or 30 daysafter the date of the Encounter. Date/Time Source Result Type Result - Unit Interpretation Reference Range Comment Jan 05, 2024 07:30 AM [facility] URIC ACID Specimen Type: SERUM No comment entered. Ordering Provider: OLIVA PÉREZ Report Released Date/Time: Dec 31, 2023 11:06 AM Reporting Lab: [facility] [address] [facility] [address] Performing Lab: [address] [address] URIC ACID 5.3 mg/dL 3.5-7.2 Jan 05, 2024 07:30 AM [facility] URINALYSIS CLEAN CATCH Specimen Type: URINE Comment: If Glucose = >500 and Ketones are positive, please alert the Physician. Ordering Provider: OLIVA PÉREZ Report Released Date/Time: Dec 31, 2023 11:06 AM Reporting Lab: [address] [address] Performing Lab: [address] [address] UA COLOR Light-Yellow Yellow UA APPEARANCE Clear Clear UA GLUCOSE NEGATIVE mg/dL Negative UA KETONES NEGATIVE mg/dL Negative UA BLOOD NEGATIVE mg/dL Negative UA PROTEIN NEGATIVE mg/dL Negative UA NITRITE NEGATIVE mg/dL Negative UA BILIRUBIN NEGATIVE mg/dL Negative UA SPECIFIC GRAVITY 1.023 H 1.016-1.022 UA pH 6.5 5.0-9.0 UA UROBILINOGEN <2.0 mg/dL <2.0 UA LEUKOCYTE NEGATIVE Negative Jan 05, 2024 07:30 AM [facility] BASIC METABOLIC PANEL (fasting) Specimen Type: SERUM No comment entered. Ordering Provider: OLIVA PÉREZ Report Released Date/Time: Dec 31, 2023 11:06 AM Reporting Lab: [address] [address] Performing Lab: [address] [address] UREA NITROGEN 21 mg/dL 7-25 GLUCOSE 116 mg/dL H 65-100 SODIUM 139 mmol/L 135-145 POTASSIUM 4.3 mmol/L 3.5-5.0 CHLORIDE 104 mmol/L 100-110 CO2 24 meq/L 20-30 CREATININE, Serum 0.90 mg/dL 0.50-1.40 eGFR(CKD-EPI 2020) 88 mL/min >60 Jan 05, 2024 07:30 AM [facility] LIPID PANEL FASTING Specimen Type: SERUM No comment entered. Ordering Provider: OLIVA PÉREZ Report Released Date/Time: Dec 31, 2023 11:06 AM Reporting Lab: [facility] [address] [facility] [address] Performing Lab: [address] [address] CHOLESTEROL 164 mg/dL TRIGLYCERIDE 112 mg/dL 0-150 LDL calculated 110 mg/dL 0-129 CHOL/HDL 5.1 HDL CHOLESTEROL 32 mg/dL L 40-60 Jan 05, 2024 07:30 AM [facility] LIVER FUNCTION Specimen Type: SERUM No comment entered. Ordering Provider: OLIVA PÉREZ Report Released Date/Time: Dec 31, 2023 11:06 AM Reporting Lab: [address] [address] Performing Lab: [address] [address] PROTEIN,TOTAL 6.2 g/dL 6.0-8.3 ALBUMIN 2.9 g/dL L 3.5-5.0 ALKALINE PHOSPHATASE 234 U/L H 40-150 AST 18 U/L 5-34 ALT 16 U/L BILIRUBIN, TOTAL 0.4 mg/dL 0.2-1.2 Jan 05, 2024 07:30 AM [facility] TSH Specimen Type: SERUM No comment entered. Ordering Provider: OLIVA PÉREZ Report Released Date/Time: Dec 31, 2023 11:06 AM Reporting Lab: [facility] [address] [facility] [address] Performing Lab: [address] [address] TSH 3.18 u[IU]/mL 0.35-5.00 Jan 05, 2024 07:30 AM [facility] CBC AND DIFF (AUTO) Specimen Type: BLOOD No comment entered. Ordering Provider: OLIVA PÉREZ Report Released Date/Time: Dec 31, 2023 11:06 AM Reporting Lab: [facility] [address] [facility] [address] Performing Lab: [facility] [address] [facility] [address] WBC 7.18 10*3/uL 4.50-11.00 RBC 5.04 10*6/uL 4.23-5.66 HGB 12.4 g/dL L 12.8-17 HCT 39.0 L 39.2-50.4 MCV 77.4 fL L 82-99 MCHC 31.8 g/dL 30.8-35.1 PLT 324 10*3/uL 140-360 RDW-CV 15.2 12.0-16.0 Ritchie, Abs 0.67 10*3/uL 0.30-1.10 MCH 24.6 pg L 26.2-32.6 Neut % 79.5 H 43.7-75.8 Lymph % 10.6 L 14.0-42.3 Ritchie % 9.3 5.1-13.7 Eos % 0.0 L [...] and tobacco- related health factors from the [place] facility where the Encounter took place. Current Smoking Status This section includes the most current smoking, or tobacco-related health factor, from the [place] facility where the Encounter took place. Date/Time Current Smoking Status Comment Facil ity Jan 27, 2023 10:00 AM [facility]ACCO [facility] USED [place] [facility] Tobacco Use History This section includes a history of the smoking, or tobacco-related health factors, that were collected on or before the date of the Encounter. The data comes from the [place] facility where the Encounter took place. Date/Time Smoking Status/Tobacco Use Comment F acility Jan 06, 2022 09:00 AM VA-TOBACCO NEVER USED [facility] [place] [facility] Dec 31, 2020 08:00 AM VA-TOBACCO NEVER USED [facility] [facility] Dec 27, 2019 09:48 AM VA-TOBACCO NEVER USED [facility] [facility] Jun 30, 2018 08:41 AM VA-TOBACCO NEVER USED [facility] [place] [facility] Dec 23, 2017 07:46 AM LIFETIME NON-TOBACCO USER [facility] [place] [facility] Dec 22, 2016 08:06 AM LIFETIME NON-TOBACCO USER [facility] [place] [facility] Dec 24, 2015 08:36 AM LIFETIME NON-TOBACCO USER [facility] [place] [facility] Jun 19, 2004 01:52 PM LIFETIME NON-SMOKER [facility] [place] [facility] Jun 19, 2004 01:52 PM LIFETIME NON-TOBACCO USER [place] [facility] [place] [facility] Jun 19, 2004 01:34 PM LIFETIME NON-SMOKER [place] [facility] [place] [facility] Jun 19, 2004 01:34 PM LIFETIME NON-TOBACCO USER [place] [facility] [place] [facility] Advance Directives: All historical and current Section Date Range: From patient's date of to the date document was created. This section includes ALL of a patient's completed or amended [place] Advance and Rescinded Directives. The entries below indicate that a directive exists for the patient, but an actual copy is not included with this document. The data comes from all [place] facilities. Date Advance Directives Provider Source May 20, 2006 ADVANCE DIRECTIVE MARINA FAJARDO [place] [facility] [place] [facility] Encounter Notes: All associated encounter notes This section contains the clinical notes associated to the Encounter. Date/Time Encounter Note(s) Provider Source Jan 03, 2024 01:12 PM ADMINISTRATIVE NOTE: LOCAL TITLE: ADMINISTRATIVE NOTE STANDARD TITLE: ADMINISTRATIVE NOTE DATE OF NOTE: JAN 03, 2024@13:12 ENTRY DATE: JAN 03, 2024@13:12:20 AUTHOR: BRAIN ROBERTSON EXP COSIGNER: URGENCY: STATUS: COMPLETED Reminder call for your upcoming Primary Care Appointment and the need for preparations prior to your upcoming appt. [X] Location in [facility] [X] Fasting labs [ ] Lab work within 30 days [ ] Urine [ ] No Preparation Action taken: [X] Called , left voice message Jan [ ] Called , unable to leave voice mail [ ] Spoke to /care asst to remind them of upcoming appt/preparations Upcoming Appointments: 01/11/2024 10:00 CWM/NO/PACT 2 01/17/2024 07:30 CWM/NO/OPTOMETRY 1 AM 07/27/2024 08:00 CWM/NO/PODIATRY A /es/ BRIAN ROBERTSON AMSA Signed: 01/03/2024 13:12 BRAIN ROBERTSON [place] [facility]
--- OUTSIDE RECORDS SUMMARY | 2024-09-12 23:13 | XMS_ITS ---
Author Name [facility] [place] Address [address] [place] [address] Care Team Providers Care Consulting Practice Manager Name Role Phone OLIVA PÉREZ Primary [...] Relationship to Policy Root TOMER BOWMANBS OF [facility] [employer] GE Apr 03, 2009 [id number] [phone] FRANCIS MANCIA SPOUSE BCBS [facility]* Apr 03, 2009 [id number] BLANCHE, JANET SPOUSE BCBS [facility] [employer] GE Apr 03, 2009 [id number] [phone] FRANCIS MANCIA SPOUSE [employer] ([id number]) PRESCRIPT ION L4TA* Apr 03, 2009 L4TA [id number] FRANCIS MANCIA SPOUSE [employer] ([id number]) PRESCRIPT ION L4TA* Apr 03, 2009 L4TA [id number] FRANCIS MANCIA SPOUSE [employer] ([id number]) PRESCRIPT ION Apr 03, 2009 L4TA [id number] FRANCIS MANCIA SPOUSE MEDICARE (WNR) MEDICARE (M) PART B Jun 04, 2020 PART B [id number] RAÚL MANCIA PATIENT MEDICARE (WNR) MEDICARE (M) PART A Oct 04, 2006 PART A [id number] RAÚL MANCIA PATIENT MEDICARE (WNR) MEDICARE (M) PART A Oct 04, 2006 PART A [id number] RAÚL MANCIA PATIENT Selected Encounter This section includes the information on record at [place] for the Encounter. Date/Time Encounter Type Encounter Description Reason Provider Source Jan 17, 2024 08:15 AM FIT SPECTACLES MONOFOCAL OPTOMETRY ICD-10-CM Z46.0 Encounter for fit/adjst of spectacles and contact lenses CLARISSA RIVERA Toine Encounter Template Text not used by [place] Assessments - Encounter Diagnoses This section includes the primary and secondary diagnoses documented for the Encounter. Date/Time Primary/Secondary Diagnosis Diagnosis Name Provider Source Jan 17, 2024 08:15 AM PRIMARY Encounter for fit/adjst of spectacles and contact lenses NKECHI KENYON [facility] [place] [facility] Plan of Treatment: Future Appointments (+ 6 [...] Date/Time Appointment Type Appointme nt Facility Name May 08, 2024 01:00 PM AMBULATORY - MEDICINE [facility] [place] [facility] May 30, 2024 03:30 PM AMBULATORY - MEDICINE [facility] [place] [facility] Lab Results: +/- 30 days of the encounter This section includes the Chemistry and Hematology Lab Results on record with [place] for the patient. Radiology Reports and Pathology Reports are provided separately, in subsequent sections. Lab Results This section contains the Chemistry/Hematology Results that were resulted 30 days before or 30 daysafter the date of the Encounter. Date/Time Source Result Type Result - Unit Interpretation Reference Range Comment Jan 05, 2024 07:30 AM [facility] URIC ACID Specimen Type: SERUM No comment entered. Ordering Provider: OLIVA PÉREZ Report Released Date/Time: Dec 31, 2023 11:06 AM Reporting Lab: [address] [address] Performing Lab: [address] [address] URIC ACID 5.3 mg/dL 3.5-7.2 Jan 05, 2024 07:30 AM [facility] URINALYSIS CLEAN CATCH Specimen Type: URINE Comment: If Glucose = >500 and Ketones are positive, please alert the Physician. Ordering Provider: OLIVA PÉREZ Report Released Date/Time: Dec 31, 2023 11:06 AM Reporting Lab: [address] [address] Performing Lab: [address] [address] UA COLOR Light-Yellow Yellow UA APPEARANCE Clear Clear UA GLUCOSE NEGATIVE mg/dL Negative UA KETONES NEGATIVE mg/dL Negative UA BLOOD NEGATIVE mg/dL Negative UA PROTEIN NEGATIVE mg/dL Negative UA NITRITE NEGATIVE mg/dL Negative UA BILIRUBIN NEGATIVE mg/dL Negative UA SPECIFIC GRAVITY 1.023 H 1.016-1.022 UA pH 6.5 5.0-9.0 UA UROBILINOGEN <2.0 mg/dL <2.0 UA LEUKOCYTE NEGATIVE Negative Jan 05, 2024 07:30 AM [facility] BASIC METABOLIC PANEL (fasting) Specimen Type: SERUM No comment entered. Ordering Provider: OLIVA PÉREZ Report Released Date/Time: Dec 31, 2023 11:06 AM Reporting Lab: [address] [address] Performing Lab: [facility] [address] [facility] [address] UREA NITROGEN 21 mg/dL 7-25 GLUCOSE 116 mg/dL H 65-100 SODIUM 139 mmol/L 135-145 POTASSIUM 4.3 mmol/L 3.5-5.0 CHLORIDE 104 mmol/L 100-110 CO2 24 meq/L 20-30 CREATININE, Serum 0.90 mg/dL 0.50-1.40 eGFR(CKD-EPI 2020) 88 mL/min >60 Jan 05, 2024 07:30 AM [facility] LIVER FUNCTION Specimen Type: SERUM No comment entered. Ordering Provider: OLIVA PÉREZ Report Released Date/Time: Dec 31, 2023 11:06 AM Reporting Lab: [address] [address] Performing Lab: [address] [address] PROTEIN,TOTAL 6.2 g/dL 6.0-8.3 ALBUMIN 2.9 g/dL L 3.5-5.0 ALKALINE PHOSPHATASE 234 U/L H 40-150 AST 18 U/L 5-34 ALT 16 U/L BILIRUBIN, TOTAL 0.4 mg/dL 0.2-1.2 Jan 05, 2024 07:30 AM [facility] LIPID PANEL FASTING Specimen Type: SERUM No comment entered. Ordering Provider: OLIVA PÉREZ Report Released Date/Time: Dec 31, 2023 11:06 AM Reporting Lab: [address] [address] Performing Lab: [address] [address] CHOLESTEROL 164 mg/dL TRIGLYCERIDE 112 mg/dL 0-150 LDL calculated 110 mg/dL 0-129 CHOL/HDL 5.1 HDL CHOLESTEROL 32 mg/dL L 40-60 Jan 05, 2024 07:30 AM [facility] TSH Specimen Type: SERUM No comment entered. Ordering Provider: OLIVA PÉREZ Report Released Date/Time: Dec 31, 2023 11:06 AM Reporting Lab: [address] [address] [facility]: [facility] [address] [facility] [address] TSH 3.18 u[IU]/mL 0.35-5.00 Jan 05, 2024 07:30 AM [facility] CBC AND DIFF (AUTO) Specimen Type: BLOOD No comment entered. Ordering Provider: OLIVA PÉREZ Report Released Date/Time: Dec 31, 2023 11:06 AM Reporting Lab: [facility] [address] [facility] [address] Performing [facility]: [facility] [address] [facility] [address] WBC 7.18 10*3/uL 4.50-11.00 RBC 5.04 10*6/uL 4.23-5.66 HGB 12.4 g/dL L 12.8-17 HCT 39.0 L 39.2-50.4 MCV 77.4 fL L 82-99 MCHC 31.8 g/dL 30.8-35.1 PLT 324 10*3/uL 140-360 RDW-CV 15.2 12.0-16.0 Burnett, Abs 0.67 10*3/uL 0.30-1.10 MCH 24.6 pg L 26.2-32.6 Neut % 79.5 H 43.7-75.8 Lymph % 10.6 L 14.0-42.3 Burnett % 9.3 5.1-13.7 Eos % 0.0 L [...] 11, 2024 10:00 AM VA-TOBACCO NEVER USED [place] [facility] Tobacco Use History This section includes a history of the smoking, or tobacco-related health factors, that were collected on or before the date of the Encounter. The data comes from the [place] facility where the Encounter took place. Date/Time Smoking Status/Tobacco Use Comment F acility Jan 27, 2023 10:00 AM VA-TOBACCO NEVER USED [facility] [place] [facility] Jan 06, 2022 09:00 AM VA-TOBACCO NEVER USED [facility] [place] [facility] Dec 31, 2020 08:00 AM VA-TOBACCO NEVER USED [facility] [place] [facility] Dec 27, 2019 09:48 AM VA-TOBACCO NEVER USED [facility] [place] [facility] Jun 30, 2018 08:41 AM VA-TOBACCO NEVER USED [facility] [place] [facility] Dec 23, 2017 07:46 AM LIFETIME NON-TOBACCO USER [facility] [place] [facility] Dec 22, 2016 08:06 AM LIFETIME NON-TOBACCO USER [facility] [place] [facility] Dec 24, 2015 08:36 AM LIFETIME NON-TOBACCO USER [facility] [place] [facility] Jun 19, 2004 01:52 PM LIFETIME NON-SMOKER [facility] [place] [facility] Jun 19, 2004 01:52 PM LIFETIME NON-TOBACCO USER [facility] [place] [place] [facility] Jun 19, 2004 01:34 PM LIFETIME NON-SMOKER [facility] [place] [facility] Jun 19, 2004 01:34 PM LIFETIME NON-TOBACCO USER [facility] [facility] Advance Directives: All historical and current Section [...] May 20, 2006 ADVANCE DIRECTIVE MARINA FAJARDO P [facility] [place] [facility] Encounter Notes: All associated encounter notes This section contains the clinical notes associated to the Encounter. Date/Time Encounter Note(s) Provider Source Jan 17, 2024 08:15 AM OPTOMETRY NOTE: LOCAL TITLE: OPTOMETRY NOTE STANDARD TITLE: OPTOMETRY NOTE DATE OF NOTE: JAN 17, 2024@08:15 ENTRY DATE: JAN 17, 2024@08:16 AUTHOR: HOLLI CASEY COSIGNER: URGENCY: STATUS: COMPLETED OPTOMETRY NOTE Has ADDENDA The quote provided below is for informational purposes only. Please verify prior to the creation of a purchase order. RAÚL MANCIA 2709 RX INFORMATION OD -0.25 -1.25 X65 Add:0.00 Pzm:0.00 Dir: Prz2:0.00 Dir2: OS -1.25 0.00 X Add:0.00 Pzm:0.00 Dir: Prz2:0.00 Dir2: FITTING INFORMATION FPD: NPD: Burnett:R:31.5 L:29.5 SEG HT:R: L: Tint:None Shade:None [place] Billable Items FRAME: FX3 GUNMETAL 50-20-145 Right Lens: POLY SINGLE VISION PHOTOCHROMATIC ELDRIDGE 1.586 POLY Left Lens: POLY SINGLE VISION PHOTOCHROMATIC ELDRIDGE 1.586 POLY KLEAR ANTI-REFLECTIVE COATING The quote provided below is for informational purposes only. Please verify prior to the creation of a purchase order. RAÚL MANCIA 2709 RX INFORMATION OD +2.25 -1.25 X65 Add:0.00 Pzm:0.00 Dir: Prz2:0.00 Dir2: OS +1.25 0.00 X Add:0.00 Pzm:0.00 Dir: Prz2:0.00 Dir2: FITTING INFORMATION FPD: NPD: Burnett:R:28 L:27 SEG HT:R: L: Tint:None Shade:None VA Billable Items FRAME: FX3 GUNMETAL 50-20-145 Right Lens: POLY SINGLE VISION 1.586 POLY Left Lens: POLY SINGLE VISION 1.586 POLY /delores/ HOLLI CASEY ACCOUNT ASSISTANT Signed: 01/17/2024 08:19 Receipt Acknowledged By: 01/17/2024 12:34 /delores/ NKECHI KENYON OPTOMETRY TECH 01/17/2024 ADDENDUM STATUS: COMPLETED PDS Comic Illustrator fit patient with 2 pair(s) of SVO eyeglasses on 01/17/2024. OPT HT entered consult(s) as requested for provider signature. /delores/ NKECHI KENYON OPTOMETRY TECH Signed: 01/17/2024 12:37 HOLLI CASEY CNTRL TRKasie [facility]
--- OUTSIDE RECORDS SUMMARY | 2024-09-12 23:13 | XMS_ITS ---
Author Name [facility] [place] [facility] [place] Address [address] [place] [address] Care Team Providers Care Military Analyst Name Role Phone OLIVA PÉREZ Primary [...] Relationship to Policy Root TOMER BOWMANBS OF [facility] ORGANIZ [facility] Takepin GE Apr 03, 2009 [id number] BLANCHE, JANET SPOUSE BCBS [facility]* Apr 03, 2009 [id number] BLANCHE, FRANCIS SPOUSE BCBS [facility] [employer] COLLE GE Apr 03, 2009 [id number] [phone] FRANCIS MANCIA SPOUSE [employer] ([id number]) PRESCRIPT ION L4TA* Apr 03, 2009 L4TA [id number] FRANCIS MANCIA SPOUSE [employer] ([id number]) PRESCRIPT ION L4TA* Apr 03, 2009 L4TA [id number] FRANCIS MANCIA SPOUSE [employer] ([id number]) PRESCRIPT ION Apr 03, 2009 L4TA [id number] FRANCIS MANCIA SPOUSE MEDICARE (WNR) MEDICARE (M) PART B Jun 04, 2020 PART B [id number] [phone] RAÚL MANCIA PATIENT MEDICARE (WNR) MEDICARE (M) PART A Oct 04, 2006 PART A [id number] RAÚL MANCIA PATIENT MEDICARE (WNR) MEDICARE (M) PART A Oct 04, 2006 PART A [id number] RAÚL MANCIA PATIENT Selected Encounter This section includes the information on record at CT for the Encounter. Date/Time Encounter Type Encounter Description Reason Provider Source Jan 17, 2024 07:30 AM COMPRE OPH EXAM EST PT 1/> OPTOMETRY ICD-10-CM H25.813 Combined forms of age-related cataract, bilateral MERHAR,CLARISSA B IHE Encounter Template Text not used by CT Assessments - Encounter Diagnoses This section includes the primary and secondary diagnoses documented for the Encounter. Date/Time Primary/Secondary Diagnosis Diagnosis Name Provider Source Jan 17, 2024 07:56 AM PRIMARY Combined forms of age-related cataract, bilateral MERHAR,CLARISSA B [facility] [place] [facility] Jan 17, 2024 07:56 AM SECONDARY Myopia, bilateral [facility] [place] [facility] Plan of Treatment: Future Appointments (+ 6 [...] 08, 2024 01:00 PM [place] [facility] May 30, 2024 03:30 PM AMBULATORY - MEDICINE [facility] Lab Results: +/- 30 days of [...] Range Comment Jan 05, 2024 07:30 AM [facility] URIC ACID Specimen Type: SERUM No comment entered. Ordering Provider: OLIVA PÉREZ Report Released Date/Time: Dec 31, 2023 11:06 AM Reporting Lab: [address] [address] Performing Lab: [address] [address] URIC ACID 5.3 mg/dL 3.5-7.2 Jan 05, 2024 07:30 AM [facility] URINALYSIS CLEAN CATCH Specimen Type: URINE Comment: If Glucose = >500 and Ketones are positive, please alert the Physician. Ordering Provider: OLIVA PÉREZ Report Released Date/Time: Dec 31, 2023 11:06 AM Reporting Lab: [address] [address] Performing Lab: [address] [address] UA COLOR Light-Yellow Yellow UA APPEARANCE Clear Clear UA GLUCOSE NEGATIVE mg/dL Negative UA KETONES NEGATIVE mg/dL Negative UA BLOOD NEGATIVE mg/dL Negative UA PROTEIN NEGATIVE mg/dL Negative UA NITRITE NEGATIVE mg/dL Negative UA BILIRUBIN NEGATIVE mg/dL Negative UA SPECIFIC GRAVITY 1.023 H 1.016-1.022 UA pH 6.5 5.0-9.0 UA UROBILINOGEN <2.0 mg/dL <2.0 UA LEUKOCYTE NEGATIVE Negative Jan 05, 2024 07:30 AM [facility] BASIC METABOLIC PANEL (fasting) Specimen Type: SERUM No comment entered. Ordering Provider: OLIVA PÉREZ Report Released Date/Time: Dec 31, 2023 11:06 AM Reporting Lab: [facility] [address] [facility] [address] Performing Lab: [facility] [address] [facility] [address] UREA NITROGEN 21 mg/dL 7-25 GLUCOSE 116 mg/dL H 65-100 SODIUM 139 mmol/L 135-145 POTASSIUM 4.3 mmol/L 3.5-5.0 CHLORIDE 104 mmol/L 100-110 CO2 24 meq/L 20-30 CREATININE, Serum 0.90 mg/dL 0.50-1.40 eGFR(CKD-EPI 2020) 88 mL/min >60 Jan 05, 2024 07:30 AM [facility] LIPID PANEL FASTING Specimen Type: SERUM No comment entered. Ordering Provider: OLIVA PÉREZ Report Released Date/Time: Dec 31, 2023 11:06 AM Reporting Lab: [address] [address] Performing Lab: [address] [address] CHOLESTEROL 164 mg/dL TRIGLYCERIDE 112 mg/dL 0-150 LDL calculated 110 mg/dL 0-129 CHOL/HDL 5.1 HDL CHOLESTEROL 32 mg/dL L 40-60 Jan 05, 2024 07:30 AM [facility] LIVER FUNCTION Specimen Type: SERUM No comment entered. Ordering Provider: OLIVA PÉREZ Report Released Date/Time: Dec 31, 2023 11:06 AM Reporting Lab: [address] [address] Performing Lab: [address] [address] PROTEIN,TOTAL 6.2 g/dL 6.0-8.3 ALBUMIN 2.9 g/dL L 3.5-5.0 ALKALINE PHOSPHATASE 234 U/L H 40-150 AST 18 U/L 5-34 ALT 16 U/L BILIRUBIN, TOTAL 0.4 mg/dL 0.2-1.2 Jan 05, 2024 07:30 AM [facility] TSH Specimen Type: SERUM No comment entered. Ordering Provider: OLIVA PÉREZ Report Released Date/Time: Dec 31, 2023 11:06 AM Reporting [facility]: [facility] [place] [facility] [address] [facility] [address] Performing Lab: [place] [facility] [place] [facility] [address] [facility] [address] TSH 3.18 u[IU]/mL 0.35-5.00 Jan 05, 2024 07:30 AM [facility] CBC AND DIFF (AUTO) Specimen Type: BLOOD No comment entered. Ordering Provider: OLIVA PÉREZ Report Released Date/Time: Dec 31, 2023 11:06 AM Reporting Lab: [facility] [address] [facility] [address] Performing Lab: [facility] [address] [facility] [address] WBC 7.18 10*3/uL 4.50-11.00 RBC 5.04 10*6/uL 4.23-5.66 HGB 12.4 g/dL L 12.8-17 HCT 39.0 L 39.2-50.4 MCV 77.4 fL L 82-99 MCHC 31.8 g/dL 30.8-35.1 PLT 324 10*3/uL 140-360 RDW-CV 15.2 12.0-16.0 [place], Abs 0.67 10*3/uL 0.30-1.10 MCH 24.6 pg L 26.2-32.6 Neut % 79.5 H 43.7-75.8 Lymph % 10.6 L 14.0-42.3 [place] % 9.3 5.1-13.7 Eos % 0.0 L [...] VA-TOBACCO NEVER USED [facility] [place] [facility] Tobacco Use History This section includes a history of the smoking, or tobacco-related health factors, that were collected on or before the date of the Encounter. The data comes from the [place] facility where the Encounter took place. Date/Time Smoking Status/Tobacco Use Comment Yadiel acility Jan 27, 2023 10:00 AM VA-TOBACCO NEVER USED [facility] [place] [facility] Jan 06, 2022 09:00 AM VA-TOBACCO NEVER USED [facility] [place] [facility] Dec 31, 2020 08:00 AM VA-TOBACCO NEVER USED [facility] [place] [facility] Dec 27, 2019 09:48 AM VA-TOBACCO NEVER USED [facility] [place] [facility] Jun 30, 2018 08:41 AM VA-TOBACCO NEVER USED [facility] [place] [facility] Dec 23, 2017 07:46 AM LIFETIME NON-TOBACCO USER [facility] [place] [facility] Dec 22, 2016 08:06 AM LIFETIME NON-TOBACCO USER [facility] [place] [facility] Dec 24, 2015 08:36 AM LIFETIME NON-TOBACCO USER [facility] [place] [facility] Jun 19, 2004 01:52 PM LIFETIME NON-SMOKER [facility] [place] [facility] Jun 19, 2004 01:52 PM LIFETIME NON-TOBACCO USER [facility] [place] [facility] Jun 19, 2004 01:34 PM LIFETIME NON-SMOKER [facility] [place] [facility] Jun 19, 2004 01:34 PM LIFETIME NON-TOBACCO USER [facility] [place] [facility] Advance Directives: All historical and current [...] May 20, [address] CNT [facility] [place] [facility] Encounter Notes: All associated encounter notes This section contains the clinical notes associated to the Encounter. Date/Time Encounter Note(s) Provider Source Jan 17, 2024 07:23 AM OPTOMETRY NOTE: LOCAL TITLE: OPTOMETRY NOTE STANDARD TITLE: OPTOMETRY NOTE DATE OF NOTE: JAN 17, 2024@07:23 ENTRY DATE: JAN 17, 2024@07:23:36 AUTHOR: CLARISSA RIVERA EXP COSIGNER: URGENCY: STATUS: COMPLETED 78 WHITE MALE DECLINED TO ANSWER Last eye exam: 04/13/22 Reason for Visit/CC: patient here for a comprehensive eye exam. He reports no issues with vision. OHx: combined cataracts OU dry eye OU refractive error OU (-) Pain: (-) LERNER: (-) Diplopia: (-) Flashes: (-) Floaters: (-) Amaurosis Fugax/Tia's: (+) Eye Injury: orbital fracture OS 40+ years ago (-) Eye Surgery: (-) TBI (-) FOHx: MHx: Code Description C15.9 Malignant neoplasm of esophagus ([facility] [id number]) D64.9 Anemia ([facility] [id number]) R63.4 Weight loss ([facility] [id number]) R73.01 Impaired fasting glucose ([facility] [id number]) I10. 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) Other: SYSTEMIC MEDICATIONS/OCULAR MEDICATIONS: Active and Recently Outpatient Medications (excluding Supplies): Active Outpatient Medications Status 1) ALLOPURINOL 100MG TAB TAKE TWO TABLETS BY MOUTH EVERY ACTIVE (S) DAY FOR GOUT 2) DIPHENHYDRAMINE HCL 25MG CAP TAKE ONE CAPSULE BY ACTIVE MOUTH TWICE DAILY NEEDED FOR CHRONIC TROUBLE SLEEPING 3) GUAIFENESIN 600MG SA TAB TAKE ONE TABLET BY MOUTH ACTIVE TWICE DAILY NEEDED FOR COUGH FOLLOW DOSE WITH FULL GLASS OF WATER 4) NUTR SUPL OSMOLITE 1.2 RITESH LIQUID DRINK 1 CAN VIA ACTIVE G-TUBE 9 TIMES A DAY FOR NUTRITIONAL SUPPLEMENTATION 5) SIMVASTATIN 80MG TAB TAKE ONE-HALF TABLET BY MOUTH AT ACTIVE (S) BEDTIME FOR CHOLESTEROL ALLERGIES: Patient has answered NKA LAST BP: 107/70 (01/11/2024 10:00) PERTINENT LABS: No data for HEMOGLOBIN A1C Current Rx with last BCVA: OD:-0.25-1.66w671 20/20-2 slow OS:-1.00 sph 20/20-2 slow Add:+2.50 20/25 DVA ( )sc ( x )cc OD 20/30-2 OS 20/20-2 Pupils: PERRL (-)APD EOM: Full all meridia OU, (-) pain/diplopia Confrontation Visual Snell: Full all meridia OU Subjective: OD -0.25 -1.25 x 065 20/30+1 OS -1.25 sph 20/20-1 Add: +2.50 SLE: Lids/Lashes: clear OU Conjunctiva: white and quiet OU Corneas: mild SPK OU Iris: flat and clear OU Anterior Chamber: deep and quiet OU Angles: open OU Lens: 2+ NS OU, 3++ ACC OD, 2-3+ ACC OS TAP @ 7:34am Wong OD 12 mm Hg OS 12 mm Hg Dilating Drops: 1 gtt 1% Tropicamide OU, 2.5% phenylephrine OU (Pt. ed. on side effects) Vitreous: Syneresis OU C/D (Size and Rim Description) OD 0.30 pink & healthy OS 0.25 pink & healthy Macula OD flat and clear OS flat and clear A/V: normal caliber OU Posterior Pole: clear OU Periphery: Flat and intact (-)holes, tears, detachments 360 OU limited peripheral views OD due to haze from dense cortical cataract Assessment/Plan: 1. Combined cataracts OU, visually significant OD. Discussed cataract surgery, patient defers for now. Pt advised to call if he becomes more symptomatic and would like referral for cataract surgery. Monitor 2. myopia OU, presbyopia OU - order new DVO and NVO RTC 1 year or earlier PRN patient offered and declined printed medication list Medication Reconciliation: Outpatient: Has the patient been taking medications as documented in the EMLR? YES: The patient has been taking medications as documented in the EMLR. Essential Medication List for Review used to complete this medication reconciliation. INCLUDED IN THIS LIST: Alphabetical list of active outpatient prescriptions dispensed from this [facility] (local) and dispensed from another [place] or [facility] facility (remote) as well as inpatient orders [...] whether with a VA or non-VA provider. JLV Link Data on this list may not be complete. Please check JLV. Allergies/ADRs (Tool #5) FACILITY ALLERGY/ADR -------- No Remote Allergy/ADR Data available for this patient [facility] [place] [facility] No Known Allergies Med Recon NoGlossary (Tool #1) INCLUDED IN THIS LIST: Alphabetical list of active outpatient prescriptions dispensed from this [facility] (local) and dispensed from another [place] or [facility] facility (remote) as well as inpatient orders (local pending and active), local clinic medications, locally documented non-VA medications, and local prescriptions that have or been discontinued in the past 90 days. Non-VA Meds Last Documented On: Data not found NOTE The display of VA prescriptions dispensed from another CT or [facility] facility (remote) is limited to active outpatient prescription entries matched to National Drug File at the originating site and may not include some items such as investigational drugs, compounds, etc. NOT INCLUDED IN THIS LIST: Medications self-entered by the patient into personal health records (i.e. [employer]) are NOT included in this list. Non-VA medications documented outside this CT, remote inpatient orders (regardless of status) and remote clinic medications are NOT included in this list. The patient and provider must always discuss medications the patient is taking, regardless of where the medication was dispensed or obtained. OUTPT ALLOPURINOL 100MG TAB (Status = Active/Suspended) TAKE TWO TABLETS BY MOUTH EVERY DAY FOR GOUT Rx# [id number] Last Released: 11/22/23 Qty/Days Supply: 180/90 Rx Expiration Date: 10/08/24 Refills Remainin OUTPT DIPHENHYDRAMINE HCL 25MG CAP (Status = Active) TAKE ONE CAPSULE BY MOUTH TWICE DAILY NEEDED FOR CHRONIC TROUBLE SLEEPING Rx# [id number] Last Released: 05/27/23 Qty/Days Supply: 60 Rx Expiration Date: 05/24/24 Refills Remainin Indication: FOR CHRONIC TROUBLE SLEEPING OUTPT GUAIFENESIN 600MG SA TAB (Status = Active) TAKE ONE TABLET BY MOUTH TWICE DAILY NEEDED FOR COUGH FOLLOW DOSE WITH FULL GLASS OF WATER Rx# [id number] Last Released: 02/02/23 Qty/Days Supply: 60 Rx Expiration Date: 01/28/24 Refills Remainin Indication: FOR COUGH OUTPT METOPROLOL TARTRATE 25MG TAB (Status = Discontinued) TAKE ONE-HALF TABLET BY MOUTH TWICE DAILY FOR BLOOD PRESSURE/HEART Rx# [id number] Last Released: 11/22/23 Qty/Days Supply: Rx Expiration Date: 10/08/24 Refills Remainin OUTPT NUTR SUPL OSMOLITE 1.2 RITESH LIQUID (Status = Active) DRINK 1 CAN VIA G-TUBE 9 TIMES A DAY FOR NUTRITIONAL SUPPLEMENTATION Rx# [id number] Last Released: 07/06/23 Qty/Days Supply: 264/29 Rx Expiration Date: 04/15/24 Refills Remainin Indication: FOR NUTRITIONAL SUPPLEMENTATION OUTPT SIMVASTATIN 80MG TAB (Status = Active/Suspended) TAKE ONE-HALF TABLET BY MOUTH AT BEDTIME FOR CHOLESTEROL Rx# [id number] Last Released: 11/22/23 Qty/Days Supply: 45 Rx Expiration Date: 10/08/24 Refills Remainin SUPPLIES OUTPT FEED BAG W/GRAVTY SET ENFIT COVID#[id number] (Status = Active) USE 1 GRAVITY BAG TOPICALLY ONCE DAILY FOR NUTRITION Rx# [id number] Last Released: 07/08/23 Qty/Days Supply: 90 Rx Expiration Date: 07/06/24 Refills Remainin Indication: NUTRITION OUTPT GAUZE PAD 4IN X 4IN NONSTERILE (Status = Active) APPLY GAUZE(S) TOPICALLY ONCE DAILY Rx# [id number] Last Released: 04/20/23 Qty/Days Supply: 200/30 Rx Expiration Date: 04/15/24 Refills Remainin Indication: CANCER OUTPT IRRIGATION KIT W/PISTON SYRINGE K#[id number] (Status = Active) USE 1 IRRIGATION KIT DIRECTED EVERY MONTH Rx# [id number] Last Released: 05/12/23 Qty/Days Supply: 11/02 Rx Expiration Date: 05/05/24 Refills Remainin Indication: CANCER ESOPHAGUS OUTPT SYRINGE, IRRIGATION W/BULB 60CC (Status = On Hold) USE 1 SYRINGE TOPICALLY ONCE DAILY DIRECTED FOR FLUSHING ENFIT CONNECTOR Rx# [id number] Last Released: Qty/Days Supply: Rx Expiration Date: 04/15/24 Refills Remainin Indication: CANCER OUTPT VALVE,AMAIRANI ENTERAL,ICU MEDICAL #[id number] (Status = Active) USE 1 VALVE ONCE A WEEK Rx# [id number] Last Released: 04/27/23 Qty/Days Supply: 01/29 Rx Expiration Date: 04/16/24 Refills Remainin Indication: G TUBE FEED /es/ CLARISSA RIVERA OD Industrial Truck Operator Signed: 01/17/2024 07:57 CLARISSA RIVERA [facility] [place] [facility]
--- OUTSIDE RECORDS SUMMARY | 2024-09-12 23:15 | XMS_ITS ---
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 Name Role Phone OLIVA PÉREZ Primary Care [...] Policy Root TOMER BOWMANBS OF [facility] [employer] GE Apr 03, 2009 [id number] FRANCIS MANCIA SPOUSE [facility]* Apr 03, 2009 [id number] [phone] BLANCHE, JANET SPOUSE BCBS [facility] [employer] GE Apr 03, 2009 [id number] [phone] FRANCIS MANCIA SPOUSE EXPRESS S[employer]IP[employer] ([id number]) PRESCRIPT ION L4TA* Apr 03, 2009 L4TA [id number] FRANCIS MANCIA SPOUSE [employer] ([id number]) PRESCRIPT ION L4TA* Apr 03, 2009 L4TA [id number] FRANCIS MANCIA SPOUSE [employer] ([id number]) PRESCRIPT ION Apr 03, 2009 L4TA [id number] FRANCIS MANCIA SPOUSE MEDICARE (WNR) MEDICARE (M) PART B Jun 04, 2020 PART B [id number] RAÚL MANCIA PATIENT MEDICARE (WNR) MEDICARE (M) PART A Oct 04, 2006 PART A [id number] [phone] RAÚL MANCIA PATIENT MEDICARE (WNR) MEDICARE (M) PART A Oct 04, 2006 PART A [id number] RAÚL MANCIA PATIENT Selected Encounter This section includes the information on record at [place] for the Encounter. Date/Time Encounter Type Encounter Description Reason Pro vider Source February 02, 2024 12:00 AM Outpatient Encounter COMMUNITY CARE CONSULT IHE Encounter Template Text not used by [place] Plan of Treatment: Future Appointments (+ 6 [...] 08, 2024 01:00 PM AM[place]ULATORY [place]ICINE [place] [facility] May 30, 2024 03:30 PM AM[place]UL[place]ORY [place] [facility] Jul 27, 2024 08:00 AM [facility]ORY [facility] Lab Results: +/- 30 days of the encounter This section includes the Chemistry and Hematology Lab Results on record with [place] for the patient. Radiology Reports and Pathology Reports are provided separately, in subsequent sections. Lab Results This section contains the Chemistry/Hematology Results that were resulted 30 days before or 30 daysafter the date of the Encounter. Date/Time Source Result Type Result - Unit Interpretation Reference Range Comment Jan 05, 2024 07:30 AM [facility] URIC ACID Specimen Type: SERUM No comment entered. Ordering Provider: OLIVA PÉREZ Report Released Date/Time: Dec 31, 2023 11:06 AM Reporting Lab: [address] [address] Performing Lab: [address] [address] URIC ACID 5.3 mg/dL 3.5-7.2 Jan 05, 2024 07:30 AM [facility] URINALYSIS CLEAN CATCH Specimen Type: URINE Comment: If Glucose = >500 and Ketones are positive, please alert the Physician. Ordering Provider: OLIVA PÉREZ Report Released Date/Time: Dec 31, 2023 11:06 AM Reporting Lab: [address] [address] Performing Lab: [address] [address] UA COLOR Light-Yellow Yellow UA APPEARANCE Clear Clear UA GLUCOSE NEGATIVE mg/dL Negative UA KETONES NEGATIVE mg/dL Negative UA BLOOD NEGATIVE mg/dL Negative UA PROTEIN NEGATIVE mg/dL Negative UA NITRITE NEGATIVE mg/dL Negative UA BILIRUBIN NEGATIVE mg/dL Negative UA SPECIFIC GRAVITY 1.023 H 1.016-1.022 UA pH 6.5 5.0-9.0 UA UROBILINOGEN <2.0 mg/dL <2.0 UA LEUKOCYTE NEGATIVE Negative Jan 05, 2024 07:30 AM [facility] BASIC METABOLIC PANEL (fasting) Specimen Type: SERUM No comment entered. Ordering Provider: OLIVA PÉREZ Report Released Date/Time: Dec 31, 2023 11:06 AM Reporting Lab: [address] [address] Performing Lab: [address] [address] UREA NITROGEN 21 mg/dL 7-25 GLUCOSE 116 mg/dL H 65-100 SODIUM 139 mmol/L 135-145 POTASSIUM 4.3 mmol/L 3.5-5.0 CHLORIDE 104 mmol/L 100-110 CO2 24 meq/L 20-30 CREATININE, Serum 0.90 mg/dL 0.50-1.40 eGFR(CKD-EPI 2020) 88 mL/min >60 Jan 05, 2024 07:30 AM [facility] LIVER FUNCTION Specimen Type: SERUM No comment entered. Ordering Provider: OLIVA PÉREZ Report Released Date/Time: Dec 31, 2023 11:06 AM Reporting Lab: [address] [address] Performing Lab: [address] [address] PROTEIN,TOTAL 6.2 g/dL 6.0-8.3 ALBUMIN 2.9 g/dL L 3.5-5.0 ALKALINE PHOSPHATASE 234 U/L H 40-150 AST 18 U/L 5-34 ALT 16 U/L BILIRUBIN, TOTAL 0.4 mg/dL 0.2-1.2 Jan 05, 2024 07:30 AM [facility] LIPID PANEL FASTING Specimen Type: SERUM No comment entered. Ordering Provider: OLIVA PÉREZ Report Released Date/Time: Dec 31, 2023 11:06 AM Reporting Lab: [address] [address] Performing Lab: [address] [address] CHOLESTEROL 164 mg/dL TRIGLYCERIDE 112 mg/dL 0-150 LDL calculated 110 mg/dL 0-129 CHOL/HDL 5.1 HDL CHOLESTEROL 32 mg/dL L 40-60 Jan 05, 2024 07:30 AM [facility] TSH Specimen Type: SERUM No comment entered. Ordering Provider: OLIVA PÉREZ Report Released Date/Time: Dec 31, 2023 11:06 AM Reporting Lab: [address] [address] Performing Lab: [address] [address] TSH 3.18 u[IU]/mL 0.35-5.00 Jan 05, 2024 07:30 AM [facility] CBC AND DIFF (AUTO) Specimen Type: BLOOD No comment entered. Ordering Provider: OLIVA PÉREZ Report Released Date/Time: Dec 31, 2023 11:06 AM Reporting Lab: [facility] [address] [address] Performing Lab: [facility] [address] [address] WBC 7.18 10*3/uL 4.50-11.00 RBC 5.04 10*6/uL 4.23-5.66 HGB 12.4 g/dL L 12.8-17 HCT 39.0 L 39.2-50.4 MCV 77.4 fL L 82-99 MCHC 31.8 g/dL 30.8-35.1 PLT 324 10*3/uL 140-360 RDW-CV 15.2 12.0-16.0 [place], Abs 0.67 10*3/uL 0.30-1.10 MCH 24.6 pg L 26.2-32.6 Neut % 79.5 H 43.7-75.8 Lymph % 10.6 L 14.0-42.3 [place] % 9.3 5.1-13.7 Eos % 0.0 L [...] 11, 2024 10:00 AM VA-TOBACCO NEVER USED [facility] Tobacco Use History This section includes a history of the smoking, or tobacco-related health factors, that were collected on or before the date of the Encounter. The data comes from the [place] facility where the Encounter took place. Date/Time Smoking Status/Tobacco Use Comment F acility Jan 27, 2023 10:00 AM VA-TOBACCO NEVER USED [place] [facility] [place] [facility] Jan 06, 2022 09:00 AM VA-TOBACCO NEVER USED [place] [facility] [place] [facility] Dec 31, 2020 08:00 AM VA-TOBACCO NEVER USED [place] [facility] [place] [facility] Dec 27, 2019 09:48 AM VA-TOBACCO NEVER USED [place] [facility] [place] [facility] Jun 30, 2018 08:41 AM VA-TOBACCO NEVER USED [place] [facility] [place] [facility] Dec 23, 2017 07:46 AM LIFETIME NON-TOBACCO USER [place] [facility] [place] [facility] Dec 22, 2016 08:06 AM LIFETIME NON-TOBACCO USER [place] [facility] [place] [facility] Dec 24, 2015 08:36 AM LIFETIME NON-TOBACCO USER [place] [facility] [place] [facility] Jun 19, 2004 01:52 PM LIFETIME NON-SMOKER [place] [place] [facility] Jun 19, 2004 01:52 PM LIFETIME NON-TOBACCO USER [place] [facility] [place] [facility] Jun 19, 2004 01:34 PM LIFETIME NON-SMOKER [place] [place] [facility] Jun 19, 2004 01:34 PM LIFETIME NON-TOBACCO USER [place] [facility] Advance Directives: All historical and current Section [...] MARINA FAJARDO [place] [facility] Encounter Notes: All associated encounter notes This section contains the clinical notes associated to the Encounter. Date/Time Encounter Note(s) Provider Source February 02, 2024 12:00 AM NONVA CONSULT: LOCAL TITLE: COMMUNITY CARE-CONSULT RESULT NOTE STANDARD TITLE: NONVA CONSULT DATE OF NOTE: FEBRUARY 02, 2024 ENTRY DATE: FEBRUARY 09, 2024@12:32:59 AUTHOR: ISABEL SLOAN MA EXP COSIGNER: URGENCY: STATUS: COMPLETED VistA Imaging - Scanned Document SCANNED DOCUMENT SIGNATURE NOT REQUIRED Electronically Filed: 02/09/2024 by: ISABEL SLOAN SHRINKING MACHINE OPERATOR ISABEL SLOAN [place] [facility]
--- OUTSIDE RECORDS SUMMARY | 2024-09-12 23:16 | XMS_ITS | Encounter Summary ---
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 Name Role Phone OLIVA PEGUERO Primary Care [...] Relationship to Policy Root TOMER ROBLES OF [facility] [employer] GE Apr 03, 2009 [id number] BLANCHE, JANET SPOUSE BCBS [facility]* Apr 03, 2009 [id number] BLANCHE, JANET SPOUSE BCBS [facility] [employer] GE Apr 03, 2009 [id number] FRANCIS MANCIA SPOUSE [employer] ([id number]) PRESCRIPT ION L4TA* Apr 03, 2009 L4TA [id number] FRANCIS MANCIA SPOUSE [employer] ([id number]) PRESCRIPT ION L4TA* Apr 03, 2009 L4TA [id number] FRANCIS MANCIA SPOUSE [employer] ([id number]) PRESCRIPT ION Apr 03, 2009 L4TA [id number] FRANCIS MANCIA SPOUSE MEDICARE (WNR) MEDICARE (M) PART B Jun 04, 2020 PART B [id number] [phone] RAÚL MANCIA PATIENT MEDICARE (WNR) MEDICARE (M) PART A Oct 04, 2006 PART A [id number] RAÚL MANCIA PATIENT MEDICARE (WNR) MEDICARE (M) PART A Oct 04, 2006 PART A [id number] RAÚL MANCIA PATIENT Selected Encounter This section includes the information on record at [place] for the Encounter. Date/Time Encounter Type Encounter Description Reason Pro vider Source Apr 05, 2024 06:33 PM Outpatient Encounter PRIMARY CARE/MEDICINE IHE Encounter Template Text not used by [place] Plan of Treatment: Future Appointments (+ 6 months) and Future Tests (+/- 45 days) The Plan of Treatment section includes future care activities for the patient from all [place] treatmentfacilities. This section includes future appointments and future orders which are active, pending or scheduled. Future Appointments This section includes appointments that were scheduled to occur 6 months from the date of the Encounter, up to a maximum of 20 appointments. The data comes from all [place] treatment facilities. Appointment Date/Time Appointment Type Appointme nt Facility Name May 08, 2024 01:00 PM AMBULATORY - MEDICINE [facility] [place] [facility] May 30, 2024 03:30 PM AMBULATORY MEDICINE [facility] [facility] Jul 27, 2024 08:00 AM AMBULATORY - MEDICINE [facility] [facility] Aug 16, 2024 10:00 AM AMBULATORY MEDICINE [facility] [place] [facility] Aug 18, 2024 09:15 AM AMBULATORY MEDICINE [facility] [place] [facility] Social History: Smoking Status (Most current) and Tobacco Use (All prior to encounter date) This section includes the most current, and the historical, smoking and tobacco- related health factors from the [place] facility where the Encounter took place. Current Smoking Status This section includes the most current smoking, or tobacco-related health factor, from the [place] facility where the Encounter took place. Date/Time Current Smoking Status Comment Ronald ity Jan 11, 2024 10:00 AM VA-TOBACCO NEVER USED [place] [facility] Tobacco Use History This section includes a history of the smoking, or tobacco-related health factors, that were collected on or before the date of the Encounter. The data comes from the [place] facility where the Encounter took place. Date/Time Smoking Status/Tobacco Use Comment Yadiel acility Jan 27, 2023 10:00 AM VA-TOBACCO NEVER USED [facility] [place] [facility] Jan 06, 2022 09:00 AM VA-TOBACCO NEVER USED [facility] [place] [facility] Dec 31, 2020 08:00 AM VA-TOBACCO NEVER USED [facility] [place] [facility] Dec 27, 2019 09:48 AM VA-TOBACCO NEVER USED [facility] [place] [facility] Jun 30, 2018 08:41 AM VA-TOBACCO NEVER USED [facility] [place] [facility] Dec 23, 2017 07:46 AM LIFETIME NON-TOBACCO USER [facility] [place] [facility] Dec 22, 2016 08:06 AM LIFETIME NON-TOBACCO USER [facility] [place] [facility] Dec 24, 2015 08:36 AM LIFETIME NON-TOBACCO USER [place] [facility] [place] [facility] Jun 19, 2004 01:52 PM LIFETIME NON-SMOKER [place] [facility] [facility] Jun 19, 2004 01:52 PM LIFETIME NON-TOBACCO USER [place] [facility] [place] [facility] Jun 19, 2004 01:34 PM LIFETIME NON-SMOKER [place] [facility] [place] [facility] Jun 19, 2004 01:34 PM LIFETIME NON-TOBACCO USER [place] [facility] [facility] Advance Directives: All historical and current Section Date Range: From patient's date of to the date document was created. This section includes ALL of a patient's completed or amended [place] Advance and Rescinded Directives. The entries below indicate that a directive exists for the patient, but an actual copy is not included with this document. The data comes from all [place] facilities. Date Advance Directives Provider Source May 20, 2006 ADVANCE DIRECTIVE MARINA FAJARDO [place] CNT RL [facility] Encounter Notes: All associated encounter notes This section contains the clinical notes associated to the Encounter. Date/Time Encounter Note(s) Provider Source Apr 05, 2024 06:33 PM NONVA CONSULT: LOCAL TITLE: MD/OUTSIDE CONSULT REPORT SUMMARY STANDARD TITLE: NONVA CONSULT DATE OF NOTE: APR 05, 2024@18:33 ENTRY DATE: APR 05, 2024@18:33:08 AUTHOR: OLIVA PEGUERO EXP COSIGNER: URGENCY: STATUS: COMPLETED 03-06-24 [facility] CAT scan of chest shows new pulmonary nodules: Infectious versus neoplastic Plan: Referral to pulmonary for biopsy /es/ Oliva Peguero MD Staff Physician Signed: 04/05/2024 18:33 OLIVA PEGUERO [place] CNTRL TRN [facility]
--- OUTSIDE RECORDS SUMMARY | 2024-09-12 23:16 | XMS_ITS | Encounter Summary ---
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 Name Role Phone OLIVA PEGUERO Primary Care [...] Relationship to Policy Root TOMER ROBLES OF [facility] [employer] GE Apr 03, 2009 [id number] [phone] BLANCHE, JANET SPOUSE BCBS [facility] BLUE* Apr 03, 2009 [id number] [phone] BLANCHE, JANET SPOUSE BCBS [facility] pushd GE Apr 03, 2009 [id number] [phone] FRANCIS MANCIA SPOUSE [employer] ([id number]) PRESCRIPT ION L4TA* Apr 03, 2009 L4TA [id number] FRANCIS MANCIA SPOUSE [employer] ([id number]) PRESCRIPT ION L4TA* Apr 03, 2009 L4TA [id number] FRANCIS MANCIA SPOUSE [employer] ([id number]) PRESCRIPT ION Apr 03, 2009 L4TA [id number] FRANCIS MANCIA SPOUSE MEDICARE (WNR) MEDICARE (M) PART B Jun 04, 2020 PART B [id number] RAÚL MANCIA PATIENT MEDICARE (WNR) MEDICARE (M) PART A Oct 04, 2006 PART A [id number] RAÚL MANCIA PATIENT MEDICARE (WNR) MEDICARE (M) PART A Oct 04, 2006 PART A [id number] RAÚL MANCIA PATIENT Selected Encounter This section includes the information on record at [place] for the Encounter. Date/Time Encounter Type Encounter Description Reason Pro vider Source Mar 19, 2024 09:09 PM Outpatient Encounter PRIMARY CARE/MEDICINE IHE Encounter Template Text not used by [place] Plan of Treatment: Future Appointments (+ 6 months) and Future Tests (+/- 45 days) The Plan of Treatment section includes future care activities for the patient from all [place] treatmentfacilities. This section includes future appointments and future orders which are active, pending or scheduled. Future Appointments This section includes appointments that were scheduled to occur 6 months from the date of the Encounter, up to a maximum of 20 appointments. The data comes from all [place] treatment facilities. Appointment Date/Time Appointment Type Appointme nt Facility Name May 08, 2024 01:00 PM AMBULATORY - MEDICINE [facility] [place] [facility] May 30, 2024 03:30 PM AMBULATORY MEDICINE [facility] [facility] Jul 27, 2024 08:00 AM AMBULATORY - MEDICINE [facility] [facility] Aug 16, 2024 10:00 AM AMBULATORY MEDICINE [facility] [facility] Aug 18, 2024 09:15 AM AMBULATORY MEDICINE [facility] [place] [facility] Social History: Smoking Status (Most current) and Tobacco Use (All prior to encounter date) This section includes the most current, and the historical, smoking and tobacco- related health factors from the [place] facility where the Encounter took place. Current Smoking Status This section includes the most current smoking, or tobacco-related health factor, from the [place] facility where the Encounter took place. Date/Time Current Smoking Status Comment Ronald ity Jan 11, 2024 10:00 AM VA-TOBACCO NEVER USED [place] [facility] Tobacco Use History This section includes a history of the smoking, or tobacco-related health factors, that were collected on or before the date of the Encounter. The data comes from the [place] facility where the Encounter took place. Date/Time Smoking Status/Tobacco Use Comment Yadiel acility Jan 27, 2023 10:00 AM VA-TOBACCO NEVER USED VA [facility] [place] [facility] Jan 06, 2022 09:00 AM VA-TOBACCO NEVER USED VA [facility] [facility] Dec 31, 2020 08:00 AM VA-TOBACCO NEVER USED VA [facility] [place] [facility] Dec 27, 2019 09:48 AM VA-TOBACCO NEVER USED VA [facility] [place] [facility] Jun 30, 2018 08:41 AM VA-TOBACCO NEVER USED VA [facility] [place] [facility] Dec 23, 2017 07:46 AM LIFETIME NON-TOBACCO USER [place] [facility] [facility] Dec 22, 2016 08:06 AM LIFETIME NON-TOBACCO USER [place] [facility] [facility] Dec 24, 2015 08:36 AM LIFETIME NON-TOBACCO USER [place] [facility] [facility] Jun 19, 2004 01:52 PM LIFETIME NON-SMOKER [place] [facility] [place] [facility] Jun 19, 2004 01:52 PM LIFETIME NON-TOBACCO USER [place] [facility] [place] [facility] Jun 19, 2004 01:34 PM LIFETIME NON-SMOKER [place] [facility] [place] [facility] Jun 19, 2004 01:34 PM LIFETIME NON-TOBACCO USER [place] [facility] Advance Directives: All historical and current Section Date Range: From patient's date of to the date document was created. This section includes ALL of a patient's completed or amended [place] Advance and Rescinded Directives. The entries below indicate that a directive exists for the patient, but an actual copy is not included with this document. The data comes from all [place] facilities. Date Advance Directives Provider Source May 20, 2006 ADVANCE DIRECTIVE MARINA FAJARDO [place] CNT [place] [facility] Encounter Notes: All associated encounter notes This section contains the clinical notes associated to the Encounter. Date/Time Encounter Note(s) Provider Source Mar 19, 2024 09:11 PM PHYSICIAN NOTE: LOCAL TITLE: MD NOTE STANDARD TITLE: PHYSICIAN NOTE DATE OF NOTE: MAR 19, 2024@21:11 ENTRY DATE: MAR 19, 2024@21:11:40 AUTHOR: OLIVA PEGUERO EXP COSIGNER: URGENCY: STATUS: [...] SLEEPING 3) FEED BAG W/GRAVTY SET ENFIT COVID#[id number] USE 1 ACTIVE GRAVITY BAG TOPICALLY ONCE DAILY FOR NUTRITION 4) GAUZE PAD 4IN X 4IN NONSTERILE APPLY GAUZE(S) ACTIVE TOPICALLY ONCE DAILY 5) IRRIGATION KIT W/PISTON SYRINGE K#[id number] USE 1 ACTIVE IRRIGATION KIT DIRECTED EVERY MONTH 6) NUTR SUPL OSMOLITE 1.2 RITESH LIQUID DRINK 1 CAN VIA ACTIVE G-TUBE 9 TIMES A DAY FOR NUTRITIONAL SUPPLEMENTATION 7) SIMVASTATIN 80MG TAB TAKE ONE-HALF TABLET BY MOUTH AT ACTIVE BEDTIME FOR CHOLESTEROL 8) SYRINGE, IRRIGATION W/BULB 60CC USE 1 SYRINGE HOLD TOPICALLY ONCE DAILY DIRECTED FOR FLUSHING ENFIT CONNECTOR 9) VALVE,AMAIRANI ENTERAL,ICU MEDICAL #9000 USE 1 VALVE ACTIVE ONCE A WEEK Remote Medications: No Active Remote Medications for this patient Renewed consult community care oncology for esophageal cancer. // Oliva Peguero MD Staff Physician Signed: 03/19/2024 21:12 OLIVA PEGUERO [place] [facility]
--- OUTSIDE RECORDS SUMMARY | 2024-09-12 23:16 | XMS_ITS ---
Author Name [facility] [place] Address [address] [place] [address] Care Team Providers Care Endocrinology Nurse Name Role Phone OLIVA PEGUERO Primary Care [...] Relationship to Policy Root TOMER ROBLES OF [facility] [employer] GE Apr 03, 2009 [id number] [phone] BLANCHE, JANET SPOUSE BCBS [facility] BLUE* Apr 03, 2009 [id number] BLANCHE, JANET SPOUSE BCBS [facility] [employer] GE Apr 03, 2009 [id number] FRANCIS MANCIA SPOUSE [employer] S[employer] ([id number]) PRESCRIPT ION L4TA* Apr 03, 2009 L4TA [id number] FRANCIS MANCIA SPOUSE [employer] ([id number]) PRESCRIPT ION L4TA* Apr 03, 2009 L4TA [id number] FRANCIS MANCIA SPOUSE [employer] ([id number]) PRESCRIPT ION Apr 03, 2009 L4TA [id number] FRANCIS MANCIA SPOUSE MEDICARE (WNR) MEDICARE (M) PART B Jun 04, 2020 PART B [id number] [phone] RAÚL MANCIA PATIENT MEDICARE (WNR) MEDICARE (M) PART A Oct 04, 2006 PART A [id number] RAÚL MANCIA PATIENT MEDICARE (WNR) MEDICARE (M) PART A Oct 04, 2006 PART A [id number] RAÚL MANCIA PATIENT Selected Encounter This section includes the information on record at [place] for the Encounter. Date/Time Encounter Type Encounter Description Reason Pro vider Source February 10, 2024 04:25 PM Outpatient Encounter PRIMARY CARE/MEDICINE IHE Encounter Template Text not used by [place] Plan of Treatment: Future Appointments (+ 6 months) and Future Tests (+/- 45 days) The Plan of Treatment section includes future care activities for the patient from all [place] treatmentfacilities. This section includes future appointments and future orders which are active, pending or scheduled. Future Appointments This section includes appointments that were scheduled to occur 6 months from the date of the Encounter, up to a maximum of 20 appointments. The data comes from all [place] treatment facilities. Appointment Date/Time Appointment Type Appointme nt Facility Name May 08, 2024 01:00 PM AMBULATORY - MEDICINE [facility] May 30, 2024 03:30 PM [facility]UL[facility] [place] [facility] Jul 27, 2024 08:00 AM AMBULATORY - MEDICINE [facility] Social History: Smoking Status (Most current) and Tobacco Use (All prior to encounter date) This section includes the most current, and the historical, smoking and tobacco- related health factors from the [place] facility where the Encounter took place. Current Smoking Status This section includes the most current smoking, or tobacco-related health factor, from the [place] facility where the Encounter took place. Date/Time Current Smoking Status Comment Facil itlary Jan 11, 2024 10:00 AM VA-TOBACCO NEVER USED [place] [facility] [place] [facility] Tobacco Use History This section includes a history of the smoking, or tobacco-related health factors, that were collected on or before the date of the Encounter. The data comes from the [place] facility where the Encounter took place. Date/Time Smoking Status/Tobacco Use Comment F acility Jan 27, 2023 10:00 AM VA-TOBACCO NEVER USED [place] [facility] [place] [facility] Jan 06, 2022 09:00 AM VA-TOBACCO NEVER USED [place] [facility] [place] [facility] Dec 31, 2020 08:00 AM VA-TOBACCO NEVER USED [place] [facility] [place] [facility] Dec 27, 2019 09:48 AM VA-TOBACCO NEVER USED [place] [facility] [place] [facility] Jun 30, 2018 08:41 AM VA-TOBACCO NEVER USED [place] [facility] [place] [facility] Dec 23, 2017 07:46 AM LIFETIME NON-TOBACCO USER [facility] [place] [facility] Dec 22, 2016 08:06 AM LIFETIME NON-TOBACCO USER [facility] [place] [facility] Dec 24, 2015 08:36 AM LIFETIME NON-TOBACCO USER [facility] [place] [facility] Jun 19, 2004 01:52 PM LIFETIME NON-SMOKER [place] [facility] [place] [facility] Jun 19, 2004 01:52 PM LIFETIME NON-TOBACCO USER [facility] [place] [facility] Jun 19, 2004 01:34 PM LIFETIME NON-SMOKER [place] [facility] [place] [facility] Jun 19, 2004 01:34 PM LIFETIME NON-TOBACCO USER [facility] [place] [facility] Advance Directives: All historical and current Section Date Range: From patient's date of to the date document was created. This section includes ALL of a patient's completed or amended VA Advance and Rescinded Directives. The entries below indicate that a directive exists for the patient, but an actual copy is not included with this document. The data comes from all [place] facilities. Date Advance Directives Provider Source May 20, 2006 ADVANCE DIRECTIVE MARINA FAJARDO [place] [facility] [place] [facility] Encounter Notes: All associated encounter notes This section contains the clinical notes associated to the Encounter. Date/Time Encounter Note(s) Provider Source February 10, 2024 04:25 PM NONVA CONSULT: LOCAL TITLE: MD/OUTSIDE CONSULT REPORT SUMMARY STANDARD TITLE: NONVA CONSULT DATE OF NOTE: FEBRUARY 10, 2024@16:25 ENTRY DATE: FEBRUARY 10, 2024@16:25:41 AUTHOR: OLIVA PEGUERO EXP COSIGNER: URGENCY: STATUS: COMPLETED 02-02-[address] Amin Radiation oncology [facility] Chief complaint: Follow-up gastric cancer Received radiation therapy Getting immunotherapy from oncology Dr. Guzman Plan: Continue immunotherapy /es/ Oliva Peguero MD Staff Physician Signed: 02/10/2024 16:26 LOIVA PEGUERO [place] [facility]
--- OUTSIDE RECORDS SUMMARY | 2024-09-12 23:17 | XMS_ITS ---
Author Name [facility] [place] Address [address] [place] [address] Care Team Providers Care Scholarship Counselor Name Role Phone OLIVA PÉREZ Primary Care [...] Relationship to Policy Root TOMER BOWMANBS OF [facility] Workable GE Apr 03, 2009 [id number] FRANCIS MANCIA SPOUSE BCBS [facility] BLUE* Apr 03, 2009 [id number] BLANCHE, JANET SPOUSE BCBS [facility] [employer] GE Apr 03, 2009 [id number] FRANCIS MANCIA SPOUSE [employer] ([id number]) PRESCRIPT ION L4TA* Apr 03, 2009 L4TA [id number] FRANCIS MANCIA SPOUSE [employer] ([id number]) PRESCRIPT ION L4TA* Apr 03, 2009 L4TA [id number] FRANCIS MANCIA SPOUSE [employer] ([id number]) PRESCRIPT ION Apr 03, 2009 L4TA [id number] FRANCIS MANCIA SPOUSE MEDICARE (WNR) MEDICARE (M) PART B Jun 04, 2020 PART B [id number] RAÚL MANCIA PATIENT MEDICARE (WNR) MEDICARE (M) PART A Oct 04, 2006 PART A [id number] [phone] RAÚL MANCIA PATIENT MEDICARE (WNR) MEDICARE (M) PART A Oct 04, 2006 PART A [id number] RAÚL MANCIA PATIENT Selected Encounter This section includes the information on record at [place] for the Encounter. Date/Time Encounter Type Encounter Description Reason Pro vider Source Mar 06, 2024 12:00 AM Outpatient Encounter COMMUNITY CARE [...] 20 appointments. The data comes from all [place] treatment facilities. Appointment Date/Time Appointment Type Appointme nt Facility Name May 08, 2024 01:00 PM AMBULATORY - MEDICINE [facility] [place] [facility] May 30, 2024 03:30 PM AMBULATORY - MEDICINE [facility] [place] [facility] Jul 27, 2024 08:00 AM AMBULATORY - MEDICINE [facility] [place] [facility] Aug 16, 2024 10:00 AM AMBULATORY MEDICINE [facility] [place] [facility] Aug 18, 2024 09:15 AM AMBULATORY MEDICINE [facility] [place] [facility] Social History: Smoking Status (Most current) and [...] 11, 2024 10:00 AM VA-TOBACCO NEVER USED [place] [facility] [place] [facility] Tobacco Use History This section includes a history of the smoking, or tobacco-related health factors, that were collected on or before the date of the Encounter. The data comes from the [place] facility where the Encounter took place. Date/Time Smoking Status/Tobacco Use Comment Yadiel acility Jan 27, 2023 10:00 AM VA-TOBACCO NEVER USED [place] [facility] [place] [facility] Jan 06, 2022 09:00 AM VA-TOBACCO NEVER USED [place] [facility] [place] [facility] Dec 31, 2020 08:00 AM VA-TOBACCO NEVER USED [place] [facility] [place] [facility] Dec 27, 2019 09:48 AM VA-TOBACCO NEVER USED [place] [facility] [place] [facility] Jun 30, 2018 08:41 AM VA-TOBACCO NEVER USED [place] [facility] [place] [facility] Dec 23, 2017 07:46 AM LIFETIME NON-TOBACCO USER [facility] [place] [facility] Dec 22, 2016 08:06 AM LIFETIME NON-TOBACCO USER [facility] [place] [facility] Dec 24, 2015 08:36 AM LIFETIME NON-TOBACCO USER [place] [facility] [place] [facility] Jun 19, 2004 01:52 PM LIFETIME NON-SMOKER [place] [facility] [place] [facility] Jun 19, 2004 01:52 PM LIFETIME NON-TOBACCO USER [place] [facility] [place] [facility] Jun 19, 2004 01:34 PM LIFETIME NON-SMOKER [place] [facility] [place] [facility] Jun 19, 2004 01:34 PM LIFETIME NON-TOBACCO USER [place] [facility] [place] [facility] Advance Directives: All historical and current Section [...] May 20, 2006 ADVANCE DIRECTIVE MARINA FAJARDO [facility] Encounter Notes: All associated encounter notes This section contains the clinical notes associated to the Encounter. Date/Time Encounter Note(s) Provider Source Mar 06, 2024 12:00 AM NONVA CONSULT: LOCAL TITLE: COMMUNITY CARE-CONSULT RESULT NOTE STANDARD TITLE: NONVA CONSULT DATE OF NOTE: MAR 06, 2024 ENTRY DATE: APR 18, 2024@12:34:11 AUTHOR: ROSHNI FINLEY EXP COSIGNER: URGENCY: STATUS: COMPLETED VistA Imaging - Scanned Document SCANNED DOCUMENT SIGNATURE NOT REQUIRED Electronically Filed: 04/18/2024 by: ROSHNI CAMPBELL [facility]
--- OUTSIDE RECORDS SUMMARY | 2024-09-12 23:18 | XMS_ITS | Encounter Summary ---
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 Name Role Phone OLIVA PEGUERO Primary Care [...] Relationship to Policy Root TOMER ROBLES OF [facility] [employer] GE Apr 03, 2009 [id number] [phone] BLANCHE, JANET SPOUSE BCBS [facility] BLUE* Apr 03, 2009 [id number] BLANCHE, JANET SPOUSE BCBS [facility] [employer] GE Apr 03, 2009 [id number] FRANCIS MANCIA SPOUSE [employer] ([id number]) PRESCRIPT ION L4TA* Apr 03, 2009 L4TA [id number] FRANCIS MANCIA SPOUSE [employer] ([id number]) PRESCRIPT ION L4TA* Apr 03, 2009 L4TA [id number] FRANCIS MANCIA SPOUSE [employer] ([id number]) PRESCRIPT ION Apr 03, 2009 L4TA [id number] FRANCIS MANCIA SPOUSE MEDICARE (WNR) MEDICARE (M) PART B Jun 04, 2020 PART B [id number] RAÚL MANCIA PATIENT MEDICARE (WNR) MEDICARE (M) PART A Oct 04, 2006 PART A [id number] RAÚL MANCIA PATIENT MEDICARE (WNR) MEDICARE (M) PART A Oct 04, 2006 PART A [id number] RAÚL MANCIA PATIENT Selected Encounter This section includes the information on record at [place] for the Encounter. Date/Time Encounter Type Encounter Description Reason Pro vider Source May 18, 2024 06:27 PM Outpatient Encounter PRIMARY CARE/MEDICINE IHE Encounter Template Text not used by [place] Plan of Treatment: Future Appointments (+ 6 months) and Future Tests (+/- 45 days) The Plan of Treatment section includes future care activities for the patient from all [place] [facility]. This section includes future appointments and future orders which are active, pending or scheduled. Future Appointments This section includes appointments that were scheduled to occur 6 months from the date of the Encounter, up to a maximum of 20 appointments. The data comes from all [place] treatment facilities. Appointment Date/Time Appointment Type Appointme nt Facility Name May 30, 2024 03:30 PM AMBULATORY - MEDICINE [place] [facility] [place] [facility] Jul 27, 2024 08:00 AM AMBULATORY MEDICINE [facility] [place] [facility] Aug 16, 2024 10:00 AM AMBULATORY MEDICINE [facility] [place] [facility] Aug 18, 2024 09:15 AM AMBULATORY - MEDICINE [facility] [place] [facility] Oct 18, 2024 10:00 AM AMBULATORY MEDICINE [facility] N[facility] [place] [facility] Lab Results: +/- 30 days of the encounter This section includes the Chemistry and Hematology Lab Results on record with [place] for the patient. Radiology Reports and Pathology Reports are provided separately, in subsequent sections. Lab Results This section contains the Chemistry/Hematology Results that were resulted 30 days before or 30 daysafter the date of the Encounter. Date/Time Source Result Type Result - Unit Interpretation Reference Range Comment May 24, 2024 07:39 AM [facility] TSH Specimen Type: SERUM No comment entered. Ordering Provider: OLIVA PEGUERO Report Released Date/Time: May 06, 2024 05:41 PM Reporting Lab: [facility] [address] [facility] [address] Performing Lab: [facility] [address] TSH 3.73 u[IU]/mL 0.35-5.00 May 24, 2024 07:39 AM [facility] LIPID PANEL FASTING Specimen Type: SERUM No comment entered. Ordering Provider: OLIVA PEGUERO Report Released Date/Time: May 06, 2024 05:41 PM Reporting Lab: [address] [address] Performing Lab: [facility] [address] CHOLESTEROL 183 mg/dL TRIGLYCERIDE 115 mg/dL 0-150 LDL calculated 120 mg/dL 0-129 CHOL/HDL 4.6 HDL CHOLESTEROL 40 mg/dL 40-60 May 24, 2024 07:39 AM [facility] LIVER FUNCTION Specimen Type: SERUM No comment entered. Ordering Provider: OLIVA PEGUERO Report Released Date/Time: May 06, 2024 05:41 PM Reporting Lab: [address] [address] Performing Lab: [address] [address] PROTEIN,TOTAL 7.1 g/dL 6.0-8.3 ALBUMIN 3.5 g/dL 3.5-5.0 ALKALINE PHOSPHATASE 233 U/L H 40-150 AST 21 U/L 5-34 ALT 16 U/L BILIRUBIN, TOTAL 0.4 mg/dL 0.2-1.2 May 24, 2024 07:39 AM [facility] BASIC METABOLIC PANEL (fasting) Specimen Type: SERUM No comment entered. Ordering Provider: OLIVA PEGUERO Report Released Date/Time: May 06, 2024 05:41 PM Reporting Lab: [facility] [address] [facility] [address] Performing Lab: [address] [address] UREA NITROGEN 23 mg/dL 7-25 GLUCOSE 109 mg/dL H 65-100 SODIUM 137 mmol/L 135-145 POTASSIUM 4.3 mmol/L 3.5-5.0 CHLORIDE 103 mmol/L 100-110 CO2 23 meq/L 20-30 CREATININE, Serum 0.83 mg/dL 0.50-1.40 eGFR(CKD-EPI 2020) 90 mL/min >60 May 24, 2024 07:39 AM [facility] URIC ACID Specimen Type: SERUM No comment entered. Ordering Provider: OLIVA PEGUERO Report Released Date/Time: May 06, 2024 05:41 PM Reporting Lab: [address] [address] Performing Lab: [address] [address] URIC ACID 4.6 mg/dL 3.5-7.2 May 24, 2024 07:39 AM [facility] URINALYSIS CLEAN CATCH Specimen Type: URINE Comment: If Glucose = >500 and Ketones are positive, please alert the Physician. Ordering Provider: OLIVA PEGUERO Report Released Date/Time: May 06, 2024 05:41 PM Reporting Lab: [address] [address] Performing Lab: [address] [address] UA COLOR Light-Yellow Yellow UA APPEARANCE Clear Clear UA GLUCOSE Normal mg/dL Negative UA KETONES NEGATIVE mg/dL Negative UA BLOOD NEGATIVE mg/dL Negative UA PROTEIN NEGATIVE mg/dL Negative UA NITRITE NEGATIVE mg/dL Negative UA BILIRUBIN NEGATIVE mg/dL Negative UA SPECIFIC GRAVITY 1.020 1.016-1.022 UA pH 5.5 5.0-9.0 UA UROBILINOGEN Normal mg/dL <2.0 UA LEUKOCYTE NEGATIVE Negative May 24, 2024 07:39 AM [facility] CBC AND DIFF (AUTO) Specimen Type: BLOOD No comment entered. Ordering Provider: OLIVA EPGUERO Report Released Date/Time: May 06, 2024 05:41 PM Reporting Lab: [facility] [address] [facility] [address] Performing Lab: [facility] [address] [facility] [address] WBC 8.44 10*3/uL 4.50-11.00 RBC 5.28 10*6/uL 4.23-5.66 HGB 13.2 g/dL 12.8-17 HCT 41.0 39.2-50.4 MCV 77.7 fL L 82-99 MCHC 32.2 g/dL 30.8-35.1 PLT 255 10*3/uL 140-360 RDW-CV 18.7 H 12.0-16.0 MONO, ABS 0.62 10*3/uL 0.30-1.10 MCH 25.0 pg L 26.2-32.6 NEUT % 81.5 H 43.7-75.8 LYMPH % 10.2 L 14.0-42.3 MONO % 7.3 5.1-13.7 EOS % 0.0 L 0.4-6.8 BASO % 0.5 0.1-2.0 NEUT, ABS 6.88 10*3/uL 2.20-7.60 LYMPH, ABS 0.86 10*3/uL L 1.00-3.20 EOS, ABS 0.00 10*3/uL L 0.03-0.44 BASO, ABS 0.04 10*3/uL 0.01-0.13 IMMATURE GRAN % 0.5 0.0-0.7 IMMATURE GRAN, ABS 0.04 10*3/uL 0.00-0.06 NRBC % 0.0 0.0-0.0 NRBC, ABS 0.00 10*3/uL 0.00-0.00 Social History: Smoking Status (Most current) and [...] VA-TOBACCO NEVER USED [place] [facility] [facility] Tobacco Use History This section includes a history of the smoking, or tobacco-related health factors, that were collected on or before the date of the Encounter. The data comes from the [place] facility where the Encounter took place. Date/Time Smoking Status/Tobacco Use Comment Yadiel acility Jan 27, 2023 10:00 AM VA-TOBACCO NEVER USED [place] [facility] [place] [facility] Jan 06, 2022 09:00 AM VA-TOBACCO NEVER USED [place] [facility] [place] [facility] Dec 31, 2020 08:00 AM VA-TOBACCO NEVER USED [place] [facility] [place] [facility] Dec 27, 2019 09:48 AM VA-TOBACCO NEVER USED [place] [facility] [place] [facility] Jun 30, 2018 08:41 AM VA-TOBACCO NEVER USED [place] [facility] [place] [facility] Dec 23, 2017 07:46 AM LIFETIME NON-TOBACCO USER [place] [facility] [place] [facility] Dec 22, 2016 08:06 AM LIFETIME NON-TOBACCO USER [place] [facility] [place] [facility] Dec 24, 2015 08:36 AM LIFETIME NON-TOBACCO USER [place] [facility] [place] [facility] Jun 19, 2004 01:52 PM LIFETIME NON-SMOKER [place] [facility] [place] [facility] Jun 19, 2004 01:52 PM LIFETIME NON-TOBACCO USER [place] [facility] [place] [facility] Jun 19, 2004 01:34 PM LIFETIME NON-SMOKER [place] [facility] [place] [facility] Jun 19, 2004 01:34 PM LIFETIME NON-TOBACCO USER [place] [facility] [place] [facility] Advance Directives: All historical and current [...] May 20, 2006 ADVANCE DIRECTIVE MARINA FAJARDO [facility] Encounter Notes: All associated encounter notes This section contains the clinical notes associated to the Encounter. Date/Time Encounter Note(s) Provider Source May 18, 2024 06:27 PM NONVA CONSULT: LOCAL TITLE: MD/OUTSIDE CONSULT REPORT SUMMARY STANDARD TITLE: NONVA CONSULT DATE OF NOTE: MAY 18, 2024@18:27 ENTRY DATE: MAY 18, 2024@18:27:50 AUTHOR: OLIVA PEGUERO EXP COSIGNER: URGENCY: STATUS: COMPLETED 05-08-[address] Guzman Hematology oncology [facility] chief complaint: Metastatic cancer of the esophagus Getting chemotherapy and radiation therapy Plan: Continue above Follow-up 6 weeks /delores/ Oliva Peguero MD Staff Physician Signed: 05/18/2024 18:28 OLIVA PEGUERO [place] [facility]
--- OUTSIDE RECORDS SUMMARY | 2024-09-12 23:18 | XMS_ITS ---
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 Name Role Phone OLIVA PÉREZ Primary Care [...] to Policy Root TOMER ROBLES OF [facility] [employer] GE Apr 03, 2009 [id number] [phone] BLANCHE, JANET SPOUSE BCBS [facility]* Apr 03, 2009 [id number] BLANCHE, JANET SPOUSE BCBS [facility] [employer] GE Apr 03, 2009 [id number] [phone] FRANCIS MANCIA SPOUSE EXPRESS SCRIPTS ([id number]) PRESCRIPT ION L4TA* Apr 03, 2009 L4TA [id number] FRANCIS MANCIA SPOUSE [employer] ([id number]) PRESCRIPT ION L4TA* Apr 03, 2009 L4TA [id number] FRANCIS MANCIA SPOUSE [employer] ([id number]) PRESCRIPT ION Apr 03, 2009 L4TA [id number] FRANCIS MANCIA SPOUSE MEDICARE (WNR) MEDICARE (M) PART B Jun 04, 2020 PART B [id number] RAÚL MANCIA PATIENT MEDICARE (WNR) MEDICARE (M) PART A Oct 04, 2006 PART A [id number] RAÚL MANCIA PATIENT MEDICARE (WNR) MEDICARE (M) PART A Oct 04, 2006 PART A [id number] [phone] RAÚL MANCIA PATIENT Selected Encounter This section includes the information on record at ME for the Encounter. Date/Time Encounter Type Encounter Description Reason Pro vider Source May 24, 2024 11:40 AM Outpatient Encounter PRIMARY CARE/MEDICINE IHE Encounter Template Text not used by ME Plan of Treatment: Future Appointments (+ 6 months) and Future Tests (+/- 45 days) The Plan of Treatment section includes future care activities for the patient from all [place] [facility] This section includes future appointments and future orders which are active, pending or scheduled. Future Appointments This section includes appointments that were scheduled to occur 6 months from the date of the Encounter, up to a maximum of 20 appointments. The data comes from all [place] treatment facilities. Appointment Date/Time Appointment Type Appointme nt Facility Name May 30, 2024 03:30 PM AMBULATORY - MEDICINE [facility] [place] [facility] Jul 27, 2024 08:00 AM AMBULATORY MEDICINE [facility] [place] [facility] Aug 16, 2024 10:00 AM AMBULATORY MEDICINE [facility] [place] [facility] Aug 18, 2024 09:15 AM AMBULATORY - MEDICINE [facility] [place] [facility] Oct 18, 2024 10:00 AM AMBULATORY MEDICINE [facility] [place] [facility] Lab Results: +/- 30 days of the encounter This section includes the Chemistry and Hematology Lab Results on record with ME for the patient. Radiology Reports and Pathology Reports are provided separately, in subsequent sections. Lab Results This section contains the Chemistry/Hematology Results that were resulted 30 days before or 30 daysafter the date of the Encounter. Date/Time Source Result Type Result - Unit Interpretation Reference Range Comment May 24, 2024 07:39 AM [facility] TSH Specimen Type: SERUM No comment entered. Ordering Provider: OLIVA PÉREZ Report Released Date/Time: May 06, 2024 05:41 PM Reporting Lab: [facility] [address] [address] Performing [facility]: [facility] [address] TSH 3.73 u[IU]/mL 0.35-5.00 May 24, 2024 07:39 AM [facility] LIPID PANEL FASTING Specimen Type: SERUM No comment entered. Ordering Provider: OLIVA PÉREZ Report Released Date/Time: May 06, 2024 05:41 PM Reporting Lab: [address] [address] Performing [facility]: [facility] [address] CHOLESTEROL 183 mg/dL TRIGLYCERIDE 115 mg/dL 0-150 LDL calculated 120 mg/dL 0-129 CHOL/HDL 4.6 HDL CHOLESTEROL 40 mg/dL 40-60 May 24, 2024 07:39 AM [facility] LIVER FUNCTION Specimen Type: SERUM No comment entered. Ordering Provider: OLIVA PÉREZ Report Released Date/Time: May 06, 2024 05:41 PM Reporting Lab: [address] [address] Performing Lab: [address] [address] PROTEIN,TOTAL 7.1 g/dL 6.0-8.3 ALBUMIN 3.5 g/dL 3.5-5.0 ALKALINE PHOSPHATASE 233 U/L H 40-150 AST 21 U/L 5-34 ALT 16 U/L BILIRUBIN, TOTAL 0.4 mg/dL 0.2-1.2 May 24, 2024 07:39 AM [facility] BASIC METABOLIC PANEL (fasting) Specimen Type: SERUM No comment entered. Ordering Provider: OLIVA PÉREZ Report Released Date/Time: May 06, 2024 05:41 PM Reporting Lab: [facility] [address] [address] Performing Lab: [address] [address] UREA NITROGEN 23 mg/dL 7-25 GLUCOSE 109 mg/dL H 65-100 SODIUM 137 mmol/L 135-145 POTASSIUM 4.3 mmol/L 3.5-5.0 CHLORIDE 103 mmol/L 100-110 CO2 23 meq/L 20-30 CREATININE, Serum 0.83 mg/dL 0.50-1.40 eGFR(CKD-EPI 2020) 90 mL/min >60 May 24, 2024 07:39 AM [facility] URIC ACID Specimen Type: SERUM No comment entered. Ordering Provider: OLIVA PÉREZ Report Released Date/Time: May 06, 2024 05:41 PM Reporting Lab: [address] [address] Performing Lab: [address] [address] URIC ACID 4.6 mg/dL 3.5-7.2 May 24, 2024 07:39 AM [facility] URINALYSIS CLEAN CATCH Specimen Type: URINE Comment: If Glucose = >500 and Ketones are positive, please alert the Physician. Ordering Provider: OLIVA PÉREZ Report Released Date/Time: May 06, 2024 05:41 PM Reporting Lab: [address] [address] Performing Lab: [address] [address] UA COLOR Light-Yellow Yellow UA APPEARANCE Clear Clear UA GLUCOSE Normal mg/dL Negative UA KETONES NEGATIVE mg/dL Negative UA BLOOD NEGATIVE mg/dL Negative UA PROTEIN NEGATIVE mg/dL Negative UA NITRITE NEGATIVE mg/dL Negative UA BILIRUBIN NEGATIVE mg/dL Negative UA SPECIFIC GRAVITY 1.020 1.016-1.022 UA pH 5.5 5.0-9.0 UA UROBILINOGEN Normal mg/dL <2.0 UA LEUKOCYTE NEGATIVE Negative May 24, 2024 07:39 AM [facility] CBC AND DIFF (AUTO) Specimen Type: BLOOD No comment entered. Ordering Provider: OLIVA PÉREZ Report Released Date/Time: May 06, 2024 05:41 PM Reporting Lab: [facility] [address] [address] Performing Lab: [facility] [address] [address] WBC 8.44 10*3/uL 4.50-11.00 RBC 5.28 10*6/uL [...] and tobacco- related health factors from the [place] facility where the Encounter took place. Current Smoking Status This section includes the most current smoking, or tobacco-related health factor, from the [place] facility where the Encounter took place. Date/Time Current Smoking Status Comment Ronald ity Jan 11, 2024 10:00 AM VA-TOBACCO NEVER USED [place] [facility] Tobacco Use History This section includes a history of the smoking, or tobacco-related health factors, that were collected on or before the date of the Encounter. The data comes from the [place] facility where the Encounter took place. Date/Time Smoking Status/Tobacco Use Comment Yadiel acility Jan 27, 2023 10:00 AM VA-TOBACCO NEVER USED [facility] [place] [facility] Jan 06, 2022 09:00 AM VA-TOBACCO NEVER USED [facility] [place] [facility] Dec 31, 2020 08:00 AM VA-TOBACCO NEVER USED [facility] [place] [place] [facility] Dec 27, 2019 09:48 AM VA-TOBACCO NEVER USED [facility] [place] [facility] Jun 30, 2018 08:41 AM VA-TOBACCO NEVER USED [facility] [place] [facility] Dec 23, 2017 07:46 AM LIFETIME NON-TOBACCO USER [facility] [place] [facility] Dec 22, 2016 08:06 AM LIFETIME NON-TOBACCO USER [facility] [place] [facility] Dec 24, 2015 08:36 AM LIFETIME NON-TOBACCO USER [facility] [place] [facility] Jun 19, 2004 01:52 PM LIFETIME NON-SMOKER [facility] [place] [facility] Jun 19, 2004 01:52 PM LIFETIME NON-TOBACCO USER [facility] [place] [facility] Jun 19, 2004 01:34 PM LIFETIME NON-SMOKER [place] [place] [facility] Jun 19, 2004 01:34 PM LIFETIME NON-TOBACCO USER [facility] [place] [facility] Advance Directives: All historical and current Section Date Range: From patient's date of to the date document was created. This section includes ALL of a patient's completed or amended VA Advance and Rescinded Directives. The entries below indicate that a directive exists for the patient, but an actual copy is not included with this document. The data comes from all [place] facilities. Date Advance Directives Provider Source May 20, 2006 ADVANCE DIRECTIVE MARINA FAJARDO [place] [facility] Encounter Notes: All associated encounter notes This section contains the clinical notes associated to the Encounter. Date/Time Encounter Note(s) Provider Source May 24, 2024 11:40 AM ADMINISTRATIVE NOTE: LOCAL TITLE: ADMINISTRATIVE NOTE STANDARD TITLE: ADMINISTRATIVE NOTE DATE OF NOTE: MAY 24, 2024@11:40 ENTRY DATE: MAY 24, 2024@11:40:16 AUTHOR: BRAIN ROBERTSON EXP COSIGNER: URGENCY: STATUS: COMPLETED Reminder call for your upcoming Primary Care Appointment and the need for preparations prior to your upcoming appt. [X] Location in [facility] [ ] Fasting labs - LABS SHOWING COMPLETED [ ] Lab work within 30 days [ ] Urine [ ] No Preparation Action taken: [ ] Called , left voice message [ ] Called , unable to leave voice mail [X] Spoke to /health care marketing specialist to remind them of upcoming appt/preparations Upcoming Appointments: 05/30/2024 15:30 CWM/NO/PACT 2 07/27/2024 08:00 CWM/NO/PODIATRY A 01/17/2025 08:00 CWM/NO/OPTOMETRY/MERHAR /es/ BRAIN ROBERTSON AMSA Signed: 05/24/2024 11:40 BRAIN ROBERTSONL [facility]
--- OUTSIDE RECORDS SUMMARY | 2024-09-12 23:18 | XMS_ITS | Encounter Summary ---
Author Name [place] Organization [place] Address [address] [place] [address] Care Team Providers Care China Painter Name Role Phone OLIVA PÉREZ Primary Care [...] Policy Root TOMER BOWMANBS OF [facility] [employer] GE Apr 03, 2009 [id number] FRANCIS MANCIA SPOUSE [facility]* Apr 03, 2009 [id number] [phone] BLANCHE, JANET SPOUSE BCBS [facility] [employer] GE Apr 03, 2009 [id number] FRANCIS MANCIA SPOUSE EXPRESS SCRIPTS ([id number]) PRESCRIPT ION L4TA* Apr 03, 2009 L4TA [id number] FRANCIS MANCIA SPOUSE [employer] ([id number]) PRESCRIPT ION L4TA* Apr 03, 2009 L4TA [id number] FRANCIS MANCIA SPOUSE [employer] ([id number]) PRESCRIPT ION Apr 03, 2009 L4TA [id number] FRANCIS MANCIA SPOUSE MEDICARE (WNR) MEDICARE (M) PART B Jun 04, 2020 PART B [id number] RAÚL MANCIA PATIENT MEDICARE (WNR) MEDICARE (M) PART A Oct 04, 2006 PART A [id number] [phone] RAÚL MANCIA PATIENT MEDICARE (WNR) MEDICARE (M) PART A Oct 04, 2006 PART A [id number] RAÚL MANCIA PATIENT Selected Encounter This section includes the information on record at [place] for the Encounter. Date/Time Encounter Type Encounter Description Reason Pro vider Source Mar 27, 2024 12:00 AM Outpatient Encounter COMMUNITY CARE CONSULT IHE Encounter Template Text not used by [place] Plan of Treatment: Future Appointments (+ 6 months) and Future Tests (+/- 45 days) The Plan of Treatment section includes future care activities for the patient from all [place] treatmentfacilities. This section includes future appointments and future orders which are active, pending or scheduled. Future Appointments This section includes appointments that were scheduled to occur 6 months from the date of the Encounter, up to a maximum of 20 appointments. The data comes from all [place] treatment facilities. Appointment Date/Time Appointment Type Appointme nt Facility Name May 08, 2024 01:00 PM AMBULATORY - MEDICINE [facility] [place] [facility] May 30, 2024 03:30 PM AMBULATORY - MEDICINE [facility] [place] [facility] Jul 27, 2024 08:00 AM AMBULATORY - MEDICINE [facility] [place] [place] [facility] Aug 16, 2024 10:00 AM AMBULATORY MEDICINE [facility] [place] [facility] Aug 18, 2024 09:15 AM AMBULATORY MEDICINE [facility] [place] [facility] Social History: Smoking Status (Most current) and Tobacco Use (All prior to encounter date) This section includes the most current, and the historical, smoking and tobacco- related health factors from the [place] facility where the Encounter took place. Current Smoking Status This section includes the most current smoking, or tobacco-related health factor, from the [place] facility where the Encounter took place. Date/Time Current Smoking Status Comment Ronald ity Jan 11, 2024 10:00 AM VA-TOBACCO NEVER USED [place] [facility] Tobacco Use History This section includes a history of the smoking, or tobacco-related health factors, that were collected on or before the date of the Encounter. The data comes from the [place] facility where the Encounter took place. Date/Time Smoking Status/Tobacco Use Comment Yadiel acility Jan 27, 2023 10:00 AM VA-TOBACCO NEVER USED [facility] [place] [facility] Jan 06, 2022 09:00 AM VA-TOBACCO NEVER USED [facility] [place] [facility] Dec 31, 2020 08:00 AM VA-TOBACCO NEVER USED [facility] [place] [facility] Dec 27, 2019 09:48 AM VA-TOBACCO NEVER USED [facility] [place] [facility] Jun 30, 2018 08:41 AM VA-TOBACCO NEVER USED [facility] [place] [facility] Dec 23, 2017 07:46 AM LIFETIME NON-TOBACCO USER [facility] [place] [facility] Dec 22, 2016 08:06 AM LIFETIME NON-TOBACCO USER [facility] [place] [facility] Dec 24, 2015 08:36 AM LIFETIME NON-TOBACCO USER [facility] [place] [facility] Jun 19, 2004 01:52 PM LIFETIME NON-SMOKER [facility] [place] [facility] Jun 19, 2004 01:52 PM LIFETIME NON-TOBACCO USER [facility] [place] [facility] Jun 19, 2004 01:34 PM LIFETIME NON-SMOKER [facility] [place] [facility] Jun 19, 2004 01:34 PM LIFETIME NON-TOBACCO USER [place] [facility] Advance Directives: All historical and current Section Date Range: From patient's date of to the date document was created. This section includes ALL of a patient's completed or amended VA Advance and Rescinded Directives. The entries below indicate that a directive exists for the patient, but an actual copy is not included with this document. The data comes from all [place] facilities. Date Advance Directives Provider Source May 20, 2006 ADVANCE DIRECTIVE MARINA FAJARDO [place] CNT RL [facility] Encounter Notes: All associated encounter notes This section contains the clinical notes associated to the Encounter. Date/Time Encounter Note(s) Provider Source Mar 27, 2024 12:00 AM NONVA CONSULT: LOCAL TITLE: COMMUNITY CARE-CONSULT RESULT NOTE STANDARD TITLE: NONVA CONSULT DATE OF NOTE: MAR 27, 2024 ENTRY DATE: APR 21, 2024@15:10:03 AUTHOR: GINO HAHN COSIGNER: URGENCY: STATUS: COMPLETED VistA Imaging - Scanned Document SCANNED DOCUMENT SIGNATURE NOT REQUIRED Electronically Filed: 04/21/2024 by: GENET HAHN Antenna Installer GENET HAHNRL [facility]
--- OUTSIDE RECORDS SUMMARY | 2024-09-12 23:18 | XMS_ITS | Encounter Summary ---
Author Name [place] Address [address] [place] [address] Care Team Providers Care Electrician Yard Name Role Phone OLIVA PÉREZ Primary Care [...] Policy Root TOMER BOWMANBS OF [facility] [employer] GE Apr 03, 2009 [id number] FRANCIS MANCIA SPOUSE BCBS [facility] BLUE* Apr 03, 2009 [id number] BLANCHE, JANET SPOUSE BCBS [facility] [employer] GE Apr 03, 2009 [id number] FRANCIS MANCIA SPOUSE EXPRESS S[employer]IP[employer] ([id number]) PRESCRIPT ION L4TA* Apr 03, 2009 L4TA [id number] FRANCIS MANCIA SPOUSE [employer] ([id number]) PRESCRIPT ION L4TA* Apr 03, 2009 L4TA [id number] FRANCIS MANCIA SPOUSE [employer] ([id number]) PRESCRIPT ION Apr 03, 2009 L4TA [id number] FRANCIS MANCIA SPOUSE MEDICARE (WNR) MEDICARE (M) PART B Jun 04, 2020 PART B [id number] RAÚL MANCIA PATIENT MEDICARE (WNR) MEDICARE (M) PART A Oct 04, 2006 PART A [id number] RAÚL MANCIA PATIENT MEDICARE (WNR) MEDICARE (M) PART A Oct 04, 2006 PART A [id number] RAÚL MANCIA PATIENT Selected Encounter This section includes the information on record at [place] for the Encounter. Date/Time Encounter Type Encounter Description Reason Pro vider Source May 08, 2024 12:00 AM Outpatient Encounter COMMUNITY CARE CONSULT IHE Encounter Template Text not used by [place] Plan of Treatment: Future Appointments (+ 6 months) and Future Tests (+/- 45 days) The Plan of Treatment section includes future care activities for the patient from all [place] [facility] This section includes future appointments and future [...] 30, 2024 03:30 PM AMBULATORY - MEDICINE [facility] [place] [facility] Jul 27, 2024 08:00 AM AMBULATORY - MEDICINE [facility] [place] [place] [facility] Aug 16, 2024 10:00 AM AMBULATORY MEDICINE [facility] [place] [place] [facility] Aug 18, 2024 09:15 AM AMBULATORY - MEDICINE [facility] [place] [facility] Oct 18, 2024 10:00 AM AMBULATORY MEDICINE [facility] [place] [place] [facility] Lab Results: +/- 30 days of [...] Range Comment May 24, 2024 07:39 AM [facility] LIVER FUNCTION Specimen Type: SERUM No comment entered. Ordering Provider: OLIVA PÉREZ Report Released Date/Time: May 06, 2024 05:41 PM Reporting Lab: [address] [address] Performing Lab: [address] [address] PROTEIN,TOTAL 7.1 g/dL 6.0-8.3 ALBUMIN 3.5 g/dL 3.5-5.0 ALKALINE PHOSPHATASE 233 U/L H 40-150 AST 21 U/L 5-34 ALT 16 U/L BILIRUBIN, TOTAL 0.4 mg/dL 0.2-1.2 May 24, 2024 07:39 AM [facility] BASIC METABOLIC PANEL (fasting) Specimen Type: SERUM No comment entered. Ordering Provider: OLIVA PÉREZ Report Released Date/Time: May 06, 2024 05:41 PM Reporting Lab: [address] [address] Performing Lab: [address] [address] UREA NITROGEN 23 mg/dL 7-25 GLUCOSE 109 mg/dL H 65-100 SODIUM 137 mmol/L 135-145 POTASSIUM 4.3 mmol/L 3.5-5.0 CHLORIDE 103 mmol/L 100-110 CO2 23 meq/L 20-30 CREATININE, Serum 0.83 mg/dL 0.50-1.40 eGFR(CKD-EPI 2020) 90 mL/min >60 May 24, 2024 07:39 AM [facility] TSH Specimen Type: SERUM No comment entered. Ordering Provider: OLIVA PÉREZ Report Released Date/Time: May 06, 2024 05:41 PM Reporting Lab: [address] [address] Performing Lab: [address] [place] [address] TSH 3.73 u[IU]/mL 0.35-5.00 May 24, 2024 07:39 AM [facility] LIPID PANEL FASTING Specimen Type: SERUM No comment entered. Ordering Provider: OLIVA PÉREZ Report Released Date/Time: May 06, 2024 05:41 PM Reporting Lab: [address] [address] Performing Lab: [address] [address] CHOLESTEROL 183 mg/dL TRIGLYCERIDE 115 mg/dL 0-150 LDL calculated 120 mg/dL 0-129 CHOL/HDL 4.6 HDL CHOLESTEROL 40 mg/dL 40-60 May 24, 2024 07:39 AM [facility] CBC AND DIFF (AUTO) Specimen Type: BLOOD No comment entered. Ordering Provider: OLIVA PÉREZ Report Released Date/Time: May 06, 2024 05:41 PM Reporting Lab: [address] [address] Performing Lab: [address] [address] WBC 8.44 10*3/uL 4.50-11.00 RBC 5.28 10*6/uL [...] 0.0 0.0-0.0 NRBC, ABS 0.00 10*3/uL 0.00-0.00 May 24, 2024 07:39 AM [facility] URIC ACID Specimen Type: SERUM No comment entered. Ordering Provider: OLIVA PÉREZ Report Released Date/Time: May 06, 2024 05:41 PM Reporting Lab: [address] [address] Performing Lab: [address] [address] URIC ACID 4.6 mg/dL 3.5-7.2 May 24, 2024 07:39 AM [facility] URINALYSIS CLEAN CATCH Specimen Type: URINE Comment: If Glucose = >500 and Ketones are positive, please alert the Physician. Ordering Provider: OLIVA PÉREZ Report Released Date/Time: May 06, 2024 05:41 PM Reporting Lab: [address] [address] Performing Lab: [address] [address] UA COLOR Light-Yellow Yellow UA APPEARANCE Clear Clear UA GLUCOSE Normal mg/dL Negative UA KETONES NEGATIVE mg/dL Negative UA BLOOD NEGATIVE mg/dL Negative UA PROTEIN NEGATIVE mg/dL Negative UA NITRITE NEGATIVE mg/dL Negative UA BILIRUBIN NEGATIVE mg/dL Negative UA SPECIFIC GRAVITY 1.020 1.016-1.022 UA pH 5.5 5.0-9.0 UA UROBILINOGEN Normal mg/dL <2.0 UA LEUKOCYTE NEGATIVE Negative Social History: Smoking Status (Most current) and [...] VA-TOBACCO NEVER USED [place] [facility] Tobacco Use History This section includes a history of the smoking, or tobacco-related health factors, that were collected on or before the date of the Encounter. The data comes from the [place] facility where the Encounter took place. Date/Time Smoking Status/Tobacco Use Comment F acility Jan 27, 2023 10:00 AM VA-TOBACCO NEVER USED [place] [place] [facility] Jan 06, 2022 09:00 AM VA-TOBACCO [...] USER [facility] [place] [facility] Advance Directives: All historical and [...] May 20, 2006 ADVANCE DIRECTIVE MARINA FAJARDO [facility] Encounter Notes: All associated encounter notes This section contains the clinical notes associated to the Encounter. Date/Time Encounter Note(s) Provider Source May 08, 2024 12:00 AM NONVA CONSULT: LOCAL TITLE: COMMUNITY CARE-CONSULT RESULT NOTE STANDARD TITLE: NONVA CONSULT DATE OF NOTE: MAY 08, 2024 ENTRY DATE: MAY 30, 2024@10:19:32 AUTHOR: NIKOLE GUO EXP COSIGNER: URGENCY: STATUS: COMPLETED VistA Imaging - Scanned Document SCANNED DOCUMENT SIGNATURE NOT REQUIRED Electronically Filed: 05/30/2024 by: NIKOLE MONTAÑO [facility]
--- OUTSIDE RECORDS SUMMARY | 2024-09-12 23:19 | XMS_ITS ---
Author Name [facility] [place] Address [address] [place] [id number] Care Team Providers Care School Services Officer Name Role Phone OLIVA PEGUERO Primary Care [...] Policy Root TOMER ROBLES OF [facility] [employer] GE Apr 03, 2009 [id number] BLANCHE, JANET SPOUSE [facility]UE* Apr 03, 2009 [id number] BLANCHE, JANET SPOUSE BCBS [facility] St[employer] GE Apr 03, 2009 [id number] [phone] FRANCIS MANCIA SPOUSE [employer] ([id number]) PRESCRIPT ION L4TA* Apr 03, 2009 L4TA [id number] FRANCIS MANCIA SPOUSE [employer] ([id number]) PRESCRIPT ION L4TA* Apr 03, 2009 L4TA [id number] FRANCIS MANCIA SPOUSE [employer] ([id number]) PRESCRIPT ION Apr 03, 2009 L4TA [id number] FRANCIS MANCIA SPOUSE MEDICARE (WNR) MEDICARE (M) PART B Jun 04, 2020 PART B [id number] RAÚL MANCIA PATIENT MEDICARE (WNR) MEDICARE (M) PART A Oct 04, 2006 PART A [id number] RAÚL MANCIA PATIENT MEDICARE (WNR) MEDICARE (M) PART A Oct 04, 2006 PART A [id number] RAÚL MANCIA PATIENT Selected Encounter This section includes the information on record at [place] for the Encounter. Date/Time Encounter Type Encounter Description Reason Pro vider Source Jun 08, 2024 04:17 PM Outpatient Encounter PRIMARY CARE/MEDICINE IHE Encounter Template Text not used by [place] Plan of Treatment: Future Appointments (+ 6 months) and Future Tests (+/- 45 days) The Plan of Treatment section includes future care activities for the patient from all [place] treatmentfacilities. This section includes future appointments and future orders which are active, pending or scheduled. Future Appointments This section includes appointments that were scheduled to occur 6 months from the date of the Encounter, up to a maximum of 20 appointments. The data comes from all [place] treatment facilities. Appointment Date/Time Appointment Type Appointme nt Facility Name Jul 27, 2024 08:00 AM AMBULATORY - MEDICINE [facility] [place] [facility] Aug 16, 2024 10:00 AM AMBULATORY MEDICINE [facility] [facility] Aug 18, 2024 09:15 AM AMBULATORY MEDICINE [facility] [facility] Oct 18, 2024 10:00 AM [facility]UL[facility]ORY [facility] Lab Results: +/- 30 days of the encounter This section includes the Chemistry and Hematology Lab Results on record with [place] for the patient. Radiology Reports and Pathology Reports are provided separately, in subsequent sections. Lab Results This section contains the Chemistry/Hematology Results that were resulted 30 days before or 30 daysafter the date of the Encounter. Date/Time Source Result Type Result - Unit Interpretation Reference Range Comment May 24, 2024 07:39 AM [facility] TSH Specimen Type: SERUM No comment entered. Ordering Provider: OLIVA PEGUERO Report Released Date/Time: May 06, 2024 05:41 PM Reporting Lab: [facility] [address] [facility] [address] Performing [facility]: [facility] [address] TSH 3.73 u[IU]/mL 0.35-5.00 May 24, 2024 07:39 AM [facility] LIPID PANEL FASTING Specimen Type: SERUM No comment entered. Ordering Provider: OLIVA PEGUERO Report Released Date/Time: May 06, 2024 05:41 PM Reporting Lab: [address] [address] Performing Lab: [address] [address] CHOLESTEROL 183 mg/dL TRIGLYCERIDE 115 mg/dL 0-150 LDL calculated 120 mg/dL 0-129 CHOL/HDL 4.6 HDL CHOLESTEROL 40 mg/dL 40-60 May 24, 2024 07:39 AM [facility] LIVER FUNCTION Specimen Type: SERUM No comment entered. Ordering Provider: OLIVA PEGUERO Report Released Date/Time: May 06, 2024 05:41 PM Reporting [facility] [address] [facility]forming [facility] [address] PROTEIN,TOTAL 7.1 g/dL 6.0-8.3 ALBUMIN 3.5 g/dL 3.5-5.0 ALKALINE PHOSPHATASE 233 U/L H 40-150 AST 21 U/L 5-34 ALT 16 U/L BILIRUBIN, TOTAL 0.4 mg/dL 0.2-1.2 May 24, 2024 07:39 AM [facility] BASIC METABOLIC PANEL (fasting) Specimen Type: SERUM No comment entered. Ordering Provider: OLIVA PEGUERO Report Released Date/Time: May 06, 2024 05:41 PM Reporting Lab: [facility] [address] [facility] [address] Performing Lab: [address] [address] UREA NITROGEN 23 mg/dL 7-25 GLUCOSE 109 mg/dL H 65-100 SODIUM 137 mmol/L 135-145 POTASSIUM 4.3 mmol/L 3.5-5.0 CHLORIDE 103 mmol/L 100-110 CO2 23 meq/L 20-30 CREATININE, Serum 0.83 mg/dL 0.50-1.40 eGFR(CKD-EPI 2020) 90 mL/min >60 May 24, 2024 07:39 AM [facility] URIC ACID Specimen Type: SERUM No comment entered. Ordering Provider: OLIVA PEGUERO Report Released Date/Time: May 06, 2024 05:41 PM Reporting Lab: [address] [address] Performing Lab: [address] [address] URIC ACID 4.6 mg/dL 3.5-7.2 May 24, 2024 07:39 AM [facility] URINALYSIS CLEAN CATCH Specimen Type: URINE Comment: If Glucose = >500 and Ketones are positive, please alert the Physician. Ordering Provider: OLIVA PEGUERO Report Released Date/Time: May 06, 2024 05:41 PM Reporting Lab: [address] [address] Performing Lab: [address] [address] UA COLOR Light-Yellow Yellow UA APPEARANCE Clear Clear UA GLUCOSE Normal mg/dL Negative UA KETONES NEGATIVE mg/dL Negative UA BLOOD NEGATIVE mg/dL Negative UA PROTEIN NEGATIVE mg/dL Negative UA NITRITE NEGATIVE mg/dL Negative UA BILIRUBIN NEGATIVE mg/dL Negative UA SPECIFIC GRAVITY 1.020 1.016-1.022 UA pH 5.5 5.0-9.0 UA UROBILINOGEN Normal mg/dL <2.0 UA LEUKOCYTE NEGATIVE Negative May 24, 2024 07:39 AM [facility] CBC AND DIFF (AUTO) Specimen Type: BLOOD No comment entered. Ordering Provider: OLIVA PEGUERO Report Released Date/Time: May 06, 2024 05:41 PM Reporting Lab: [facility] [address] [facility] [address] Performing Lab: [facility] [address] [facility] [address] WBC 8.44 10*3/uL 4.50-11.00 RBC 5.28 10*6/uL [...] and tobacco- related health factors from the [place] facility where the Encounter took place. Current Smoking Status This section includes the most current smoking, or tobacco-related health factor, from the [place] facility where the Encounter took place. Date/Time Current Smoking Status Comment Ronald ity Jan 11, 2024 10:00 AM VA-TOBACCO NEVER USED [place] [facility] Tobacco Use History This section includes a history of the smoking, or tobacco-related health factors, that were collected on or before the date of the Encounter. The data comes from the [place] facility where the Encounter took place. Date/Time Smoking Status/Tobacco Use Comment F acility Jan 27, 2023 10:00 AM VA-TOBACCO NEVER USED [place] [facility] [place] [facility] Jan 06, 2022 09:00 AM VA-TOBACCO NEVER USED [facility] [place] [facility] Dec 31, 2020 08:00 AM VA-TOBACCO NEVER USED [facility] [place] [facility] Dec 27, 2019 09:48 AM VA-TOBACCO NEVER USED [facility] [place] [facility] Jun 30, 2018 08:41 AM VA-TOBACCO NEVER USED [facility] [place] [facility] Dec 23, 2017 07:46 AM LIFETIME NON-TOBACCO USER [facility] [place] [facility] Dec 22, 2016 08:06 AM LIFETIME NON-TOBACCO USER [facility] [place] [facility] Dec 24, 2015 08:36 AM LIFETIME NON-TOBACCO USER [facility] [place] [facility] Jun 19, 2004 01:52 PM LIFETIME NON-SMOKER [place] [facility] [place] [facility] Jun 19, 2004 01:52 PM LIFETIME NON-TOBACCO USER [facility] [place] [facility] Jun 19, 2004 01:34 PM LIFETIME NON-SMOKER [place] [facility] [place] [facility] Jun 19, 2004 01:34 PM LIFETIME NON-TOBACCO USER [place] [facility] Advance Directives: All historical and current Section Date Range: From patient's date of to the date document was created. This section includes ALL of a patient's completed or amended [place] Advance and Rescinded Directives. The entries below indicate that a directive exists for the patient, but an actual copy is not included with this document. The data comes from all [place] facilities. Date Advance Directives Provider Source May 20, 2006 ADVANCE DIRECTIVE MARINA FAJARDO [place] [facility] Encounter Notes: All associated encounter notes This section contains the clinical notes associated to the Encounter. Date/Time Encounter Note(s) Provider Source Jun 08, 2024 04:17 PM NONVA CONSULT: LOCAL TITLE: MD/OUTSIDE CONSULT REPORT SUMMARY STANDARD TITLE: NONVA CONSULT DATE OF NOTE: JUN 08, 2024@16:17 ENTRY DATE: JUN 08, 2024@16:17:38 AUTHOR: OLIVA PEGUERO EXP COSIGNER: URGENCY: STATUS: COMPLETED 05-16-24 MRI brain with and without contrast [facility] Ordered by Dr. Guzman Mass lesion Chronic lacunar infarcts Mild cerebral loss /es/ Oliva Peguero MD Staff Physician Signed: 06/08/2024 16:17 OLIVA PEGUERO [place] [facility]
--- OUTSIDE RECORDS SUMMARY | 2024-09-12 23:19 | XMS_ITS ---
Author Name [place] Address [address] [place] [id number] Care Team Providers Care Examiner Rating Clerk Name Role Phone OLIVA PEGUERO Primary Care [...] Policy Root TOMER ROBLES OF [facility] [employer] GE Apr 03, 2009 [id number] [phone] BLANCHE, JANET SPOUSE BCBS [facility] BLUE* Apr 03, 2009 [id number] [phone] BLANCHE, JANET SPOUSE BCBS [facility] [employer] GE Apr 03, 2009 [id number] FRANCIS MANCIA SPOUSE [employer] ([id number]) PRESCRIPT ION L4TA* Apr 03, 2009 L4TA [id number] FRANCIS MANCIA SPOUSE [employer] ([id number]) PRESCRIPT ION L4TA* Apr 03, 2009 L4TA [id number] FRANCIS MANCIA SPOUSE [employer] ([id number]) PRESCRIPT ION Apr 03, 2009 L4TA [id number] FRANCIS MANCIA SPOUSE MEDICARE (WNR) MEDICARE (M) PART B Jun 04, 2020 PART B [id number] [phone] RAÚL MANCIA PATIENT MEDICARE (WNR) MEDICARE (M) PART A Oct 04, 2006 PART A [id number] RAÚL MANCIA PATIENT MEDICARE (WNR) MEDICARE (M) PART A Oct 04, 2006 PART A [id number] RAÚL MANCIA PATIENT Selected Encounter This section includes the information on record at [place] for the Encounter. Date/Time Encounter Type Encounter Description Reason Pro vider Source Jun 22, 2024 02:58 PM Outpatient Encounter PRIMARY CARE/MEDICINE IHE Encounter Template Text not used by [place] Plan of Treatment: Future Appointments (+ 6 months) and Future Tests (+/- 45 days) The Plan of Treatment section includes future care activities for the patient from all [place] treatmentfacilities. This section includes future appointments and future orders which are active, pending or scheduled. Future Appointments This section includes appointments that were scheduled to occur 6 months from the date of the Encounter, up to a maximum of 20 appointments. The data comes from all [place] treatment facilities. Appointment Date/Time Appointment Type Appointme nt Facility Name Jul 27, 2024 08:00 AM AMBULATORY - MEDICINE [facility] [place] [facility] Aug 16, 2024 10:00 AM [facility]UL[facility]ORY MEDIC[facility] [place] [facility] Aug 18, 2024 09:15 AM [facility]ORY MED[facility] [place] [facility] Oct 18, 2024 10:00 AM [facility] Active, Pending, and Scheduled Orders This section includes a listing of several types of active, pending, and scheduled orders, including clinic medications orders, diagnostic test orders, procedure orders and consult orders; where the start date of the order is 45 days before the date of the Encounter or 45 days after the date of theEncounter. The data comes from all [place] treatment facilities. Test Date/Time Test Type Test Details Facility Name Aug 04, 2024 10:27 PM Consult Order COMMUNITY CARE-PULMONARY Cons [employer] [facility] Lab Results: +/- 30 days of the encounter This section includes the Chemistry and Hematology Lab Results on record with [place] for the patient. Radiology Reports and Pathology Reports are provided separately, in subsequent sections. Lab Results This section contains the Chemistry/Hematology Results that were resulted 30 days before or 30 daysafter the date of the Encounter. Date/Time Source Result Type Result - Unit Interpretation Reference Range Comment May 24, 2024 07:39 AM [facility] LIVER FUNCTION Specimen Type: SERUM No comment entered. Ordering Provider: OLIVA PEGUERO Report Released Date/Time: May 06, 2024 05:41 PM Reporting Lab: [address] [address] Performing Lab: [address] [address] PROTEIN,TOTAL 7.1 g/dL 6.0-8.3 ALBUMIN 3.5 g/dL 3.5-5.0 ALKALINE PHOSPHATASE 233 U/L H 40-150 AST 21 U/L 5-34 ALT 16 U/L BILIRUBIN, TOTAL 0.4 mg/dL 0.2-1.2 May 24, 2024 07:39 AM [facility] BASIC METABOLIC PANEL (fasting) Specimen Type: SERUM No comment entered. Ordering Provider: OLIVA PEGUERO Report Released Date/Time: May 06, 2024 05:41 PM Reporting Lab: [address] [address] Performing Lab: [address] [address] UREA NITROGEN 23 mg/dL 7-25 GLUCOSE 109 mg/dL H 65-100 SODIUM 137 mmol/L 135-145 POTASSIUM 4.3 mmol/L 3.5-5.0 CHLORIDE 103 mmol/L 100-110 CO2 23 meq/L 20-30 CREATININE, Serum 0.83 mg/dL 0.50-1.40 eGFR(CKD-EPI 2020) 90 mL/min >60 May 24, 2024 07:39 AM [facility] TSH Specimen Type: SERUM No comment entered. Ordering Provider: OLIVA PEGUERO Report Released Date/Time: May 06, 2024 05:41 PM Reporting Lab: [facility] [address] [facility] [address] Performing Lab: [address] [address] TSH 3.73 u[IU]/mL 0.35-5.00 May 24, 2024 07:39 AM [facility] LIPID PANEL FASTING Specimen Type: SERUM No comment entered. Ordering Provider: OLIVA PEGUERO Report Released Date/Time: May 06, 2024 05:41 PM Reporting Lab: [address] [address] Performing Lab: [address] [address] CHOLESTEROL 183 mg/dL TRIGLYCERIDE 115 mg/dL 0-150 LDL calculated 120 mg/dL 0-129 CHOL/HDL 4.6 HDL CHOLESTEROL 40 mg/dL 40-60 May 24, 2024 07:39 AM [facility] CBC AND DIFF (AUTO) Specimen Type: BLOOD No comment entered. Ordering Provider: OLIVA PEGUERO Report Released Date/Time: May 06, 2024 05:41 PM Reporting Lab: [address] [address] Performing Lab: [address] [address] WBC 8.44 10*3/uL 4.50-11.00 RBC 5.28 10*6/uL [...] 10*3/uL 0.00-0.00 May 24, 2024 07:39 AM [facility] URIC ACID Specimen Type: SERUM No comment entered. Ordering Provider: OLIVA PEGUERO Report Released Date/Time: May 06, 2024 05:41 PM Reporting Lab: [address] [address] Performing Lab: [address] [address] URIC ACID 4.6 mg/dL 3.5-7.2 May 24, 2024 07:39 AM [facility] URINALYSIS CLEAN CATCH Specimen Type: URINE Comment: If Glucose = >500 and Ketones are positive, please alert the Physician. Ordering Provider: OLIVA PEGUERO Report Released Date/Time: May 06, 2024 05:41 PM Reporting Lab: [address] [address] Performing Lab: [address] [address] UA COLOR Light-Yellow Yellow UA APPEARANCE Clear [...] and tobacco- related health factors from the [place] facility where the Encounter took place. Current Smoking Status This section includes the most current smoking, or tobacco-related health factor, from the [place] facility where the Encounter took place. Date/Time Current Smoking Status Comment Facil ity Jan 11, 2024 10:00 AM VA-TOBACCO NEVER USED [facility] [place] [facility] Tobacco Use History This section includes a history of the smoking, or tobacco-related health factors, that were collected on or before the date of the Encounter. The data comes from the [place] facility where the Encounter took place. Date/Time Smoking Status/Tobacco Use Comment F acility Jan 27, 2023 10:00 AM VA-TOBACCO NEVER USED [facility] [place] [facility] Jan 06, 2022 09:00 AM VA-TOBACCO NEVER USED [facility] [place] [facility] Dec 31, 2020 08:00 AM VA-TOBACCO NEVER USED [facility] [place] [facility] Dec 27, 2019 09:48 AM VA-TOBACCO NEVER USED [facility] [place] [facility] Jun 30, 2018 08:41 AM VA-TOBACCO NEVER USED [facility] [place] [facility] Dec 23, 2017 07:46 AM LIFETIME NON-TOBACCO USER [facility] [place] [facility] Dec 22, 2016 08:06 AM LIFETIME NON-TOBACCO USER [facility] [place] [facility] Dec 24, 2015 08:36 AM LIFETIME NON-TOBACCO USER [facility] [place] [facility] Jun 19, 2004 01:52 PM LIFETIME NON-SMOKER [place] [facility] [place] [facility] Jun 19, 2004 01:52 PM LIFETIME NON-TOBACCO USER [facility] [place] [facility] Jun 19, 2004 01:34 PM LIFETIME NON-SMOKER [facility] [place] [facility] Jun 19, 2004 01:34 PM [facility]CO [facility] Advance Directives: All historical and current Section Date Range: From patient's date of to the date document was created. This section includes ALL of a patient's completed or amended [place] Advance and Rescinded Directives. The entries below indicate that a directive exists for the patient, but an actual copy is not included with this document. The data comes from all [place] facilities. Date Advance Directives Provider Source May 20, 2006 ADVANCE DIRECTIVE [facility] Encounter Notes: All associated encounter notes This section contains the clinical notes associated to the Encounter. Date/Time Encounter Note(s) Provider Source Jun 22, 2024 02:58 PM NONVA CONSULT: LOCAL TITLE: MD/OUTSIDE CONSULT REPORT SUMMARY STANDARD TITLE: NONVA CONSULT DATE OF NOTE: JUN 22, 2024@14:58 ENTRY DATE: JUN 22, 2024@14:59:01 AUTHOR: OLIVA PEGUERO EXP COSIGNER: URGENCY: STATUS: COMPLETED 06-15-[address] [facility] Chief complaint: Follow-up esophageal cancer Treated with chemotherapy, radiation therapy, immunotherapy Patient has not had surgery for cancer Plan: CT chest in 2 months follow-up /delores/ Oliva Peguero MD Staff Physician Signed: 06/22/2024 14:59 OLIVA PEGUERO [facility]
--- OUTSIDE RECORDS SUMMARY | 2024-09-12 23:19 | XMS_ITS ---
Author Name [facility] [place] Address [address] [place] [id number] Care Team Providers Care Easement Man Name Role Phone OLIVA PÉREZ Primary Care [...] Relationship to Policy Root TOMER B[facility]MANBS OF [facility] [employer] GE Apr 03, 2009 [id number] [phone] FRANCIS MANCIA SPOUSE BCBS [facility] BLUE* Apr 03, 2009 [id number] BLANCHE, JANET SPOUSE BCBS [facility] [employer] GE Apr 03, 2009 [id number] [phone] FRANCIS MANCIA SPOUSE [employer] ([id number]) PRESCRIPT ION L4TA* Apr 03, 2009 L4TA [id number] FRANCIS MANCIA SPOUSE [employer] ([id number]) PRESCRIPT ION L4TA* Apr 03, 2009 L4TA [id number] FRANCIS MANCIA SPOUSE [employer] ([id number]) PRESCRIPT ION Apr 03, 2009 L4TA [id number] FRANCIS MANCIA SPOUSE MEDICARE (WNR) MEDICARE (M) PART B Jun 04, 2020 PART B [id number] [phone] RAÚL MANCIA PATIENT MEDICARE (WNR) MEDICARE (M) PART A Oct 04, 2006 PART A [id number] RAÚL MANCIA PATIENT MEDICARE (WNR) MEDICARE (M) PART A Oct 04, 2006 PART A [id number] RAÚL MANCIA PATIENT Selected Encounter This section includes the information on record at [place] for the Encounter. Date/Time Encounter Type Encounter Description Reason Pro vider Source May 16, 2024 12:00 AM Outpatient Encounter COMMUNITY CARE CONSULT IHE Encounter Template Text not used by [place] Plan of Treatment: Future Appointments (+ 6 months) and Future Tests (+/- 45 days) The Plan of Treatment section includes future care activities for the patient from all [place] [facility] This section includes future appointments and future orders which are active, pending or scheduled. Future Appointments This section includes appointments that were scheduled to occur 6 months from the date of the Encounter, up to a maximum of 20 appointments. The data comes from all [place] treatment facilities. Appointment Date/Time Appointment Type Appointme nt Facility Name May 30, 2024 03:30 PM AMBULATORY - MEDICINE [facility] [place] [facility] Jul 27, 2024 08:00 AM AMBULATORY - MEDICINE [facility] [place] [facility] Aug 16, 2024 10:00 AM AMBULATORY MEDICINE [facility] [place] [facility] Aug 18, 2024 09:15 AM AMBULATORY - MEDICINE [facility] [place] [facility] Oct 18, 2024 10:00 AM AMBULATORY MEDICINE [facility] [place] [facility] Lab Results: +/- 30 days of the encounter This section includes the Chemistry and Hematology Lab Results on record with [place] for the patient. Radiology Reports and Pathology [...] May 06, 2024 05:41 PM Reporting Lab: [address] [address] Performing Lab: [facility] [address] TSH 3.73 u[IU]/mL 0.35-5.00 May 24, 2024 07:39 AM [facility] LIPID PANEL FASTING Specimen Type: SERUM No comment entered. Ordering Provider: OLIVA PÉREZ Report Released Date/Time: May 06, 2024 05:41 PM Reporting Lab: [address] [address] Performing Lab: [facility] [address] CHOLESTEROL 183 mg/dL TRIGLYCERIDE 115 mg/dL 0-150 LDL calculated 120 mg/dL 0-129 CHOL/HDL 4.6 HDL CHOLESTEROL 40 mg/dL 40-60 May 24, 2024 07:39 AM [facility] LIVER FUNCTION Specimen Type: SERUM No comment entered. Ordering Provider: OLIVA PÉREZ Report Released Date/Time: May 06, 2024 05:41 PM Reporting Lab: [facility] [address] Performing Lab: [address] [address] PROTEIN,TOTAL 7.1 g/dL 6.0-8.3 ALBUMIN 3.5 g/dL 3.5-5.0 ALKALINE PHOSPHATASE 233 U/L H 40-150 AST 21 U/L 5-34 ALT 16 U/L BILIRUBIN, TOTAL 0.4 mg/dL 0.2-1.2 May 24, 2024 07:39 AM [facility] BASIC METABOLIC PANEL (fasting) Specimen Type: SERUM No comment entered. Ordering Provider: OLIVA PÉREZ Report Released Date/Time: May 06, 2024 05:41 PM Reporting Lab: [address] [address] Performing Lab: [address] [address] UREA NITROGEN 23 mg/dL 7-25 GLUCOSE 109 [...] May 06, 2024 05:41 PM Reporting Lab: [address] [address] Performing Lab: [address] [address] URIC ACID 4.6 mg/dL 3.5-7.2 May 24, 2024 07:39 AM [facility] URINALYSIS CLEAN CATCH Specimen Type: URINE Comment: If Glucose = >500 and Ketones are positive, please alert the Physician. Ordering Provider: OLIVA PÉREZ Report Released Date/Time: May 06, 2024 05:41 PM Reporting Lab: [address] [address] Performing Lab: [address] [address] UA COLOR Light-Yellow Yellow UA APPEARANCE Clear Clear UA GLUCOSE Normal mg/dL Negative UA KETONES NEGATIVE mg/dL Negative UA BLOOD NEGATIVE mg/dL Negative UA PROTEIN NEGATIVE mg/dL Negative UA NITRITE NEGATIVE mg/dL Negative UA BILIRUBIN NEGATIVE mg/dL Negative UA SPECIFIC GRAVITY 1.020 1.016-1.022 UA pH 5.5 5.0-9.0 UA UROBILINOGEN Normal mg/dL <2.0 UA LEUKOCYTE NEGATIVE Negative May 24, 2024 07:39 AM [facility] CBC AND DIFF (AUTO) Specimen Type: BLOOD No comment entered. Ordering Provider: OLIVA PÉREZ Report Released Date/Time: May 06, 2024 05:41 PM Reporting Lab: [facility] [address] [facility] [address] Performing Lab: [facility] [address] [facility] [address] WBC 8.44 10*3/uL 4.50-11.00 RBC 5.28 10*6/uL [...] and tobacco- related health factors from the [place] facility where the Encounter took place. Current Smoking Status This section includes the most current smoking, or tobacco-related health factor, from the [place] facility where the Encounter took place. Date/Time Current Smoking Status Comment Ronald ity Jan 11, 2024 10:00 AM VA-TOBACCO NEVER USED [place] [facility] Tobacco Use History This section includes a history of the smoking, or tobacco-related health factors, that were collected on or before the date of the Encounter. The data comes from the [place] facility where the Encounter took place. Date/Time Smoking Status/Tobacco Use Comment F acility Jan 27, 2023 10:00 AM VA-TOBACCO NEVER USED [facility] [place] [facility] Jan 06, 2022 09:00 AM VA-TOBACCO NEVER USED [place] [facility] [place] [facility] Dec 31, 2020 08:00 AM VA-TOBACCO NEVER USED [place] [facility] [place] [facility] Dec 27, 2019 09:48 AM VA-TOBACCO NEVER USED [facility] [place] [facility] Jun 30, 2018 08:41 AM VA-TOBACCO NEVER USED [facility] [place] [facility] Dec 23, 2017 07:46 AM LIFETIME NON-TOBACCO USER [facility] [place] [facility] Dec 22, 2016 08:06 AM LIFETIME NON-TOBACCO USER [facility] [place] [facility] Dec 24, 2015 08:36 AM LIFETIME NON-TOBACCO USER [facility] [place] [facility] Jun 19, 2004 01:52 PM LIFETIME NON-SMOKER [facility] [place] [facility] Jun 19, 2004 01:52 PM LIFETIME NON-TOBACCO USER [facility] [place] [facility] Jun 19, 2004 01:34 PM LIFETIME NON-SMOKER [place] [facility] [place] [facility] Jun 19, 2004 01:34 PM LIFETIME NON-TOBACCO USER [facility] [place] [facility] Advance Directives: All historical and current Section Date Range: From patient's date of to the date document was created. This section includes ALL of a patient's completed or amended [place] Advance and Rescinded Directives. The entries below indicate that a directive exists for the patient, but an actual copy is not included with this document. The data comes from all [place] facilities. Date Advance Directives Provider Source May 20, 2006 ADVANCE DIRECTIVE MARINA FAJARDO [place] [facility] Encounter Notes: All associated encounter notes This section contains the clinical notes associated to the Encounter. Date/Time Encounter Note(s) Provider Source May 16, 2024 12:00 AM NONVA CONSULT: LOCAL TITLE: COMMUNITY CARE-CONSULT RESULT NOTE STANDARD TITLE: NONVA CONSULT DATE OF NOTE: MAY 16, 2024 ENTRY DATE: JUN 20, 2024@14:22:12 AUTHOR: MARILIN AUGUSTIN EXP COSIGNER: URGENCY: STATUS: COMPLETED VistA Imaging - Scanned Document SCANNED DOCUMENT SIGNATURE NOT REQUIRED Electronically Filed: 06/20/2024 by: MARILIN AUGUSTIN HEEL COVER SOFTENER MARILIN AUGUSTIN [place] [facility]
--- OUTSIDE RECORDS SUMMARY | 2024-09-12 23:19 | XMS_ITS ---
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 Name Role Phone OLIVA PEGUERO Primary Care [...] Relationship to Policy Root TOMER BOWMANBS [facility] [employer] GE Apr 03, 2009 [id number] BLANCHEFRANCIS HERNANDEZ SPOUSE BCBS [facility]UE* Apr 03, 2009 [id number] BLANCHE, JANET SPOUSE BCBS [facility] [employer] GE Apr 03, 2009 [id number] [phone] FRANCIS MANCIA SPOUSE [employer] ([id number]) PRESCRIPT ION L4TA* Apr 03, 2009 L4TA [id number] FRANCIS MANCIA SPOUSE [employer] ([id number]) PRESCRIPT ION L4TA* Apr 03, 2009 L4TA [id number] FRANCIS MANCIA SPOUSE [employer] ([id number]) PRESCRIPT ION Apr 03, 2009 L4TA [id number] FRANCIS MANCIA SPOUSE MEDICARE (WNR) MEDICARE (M) PART B Jun 04, 2020 PART B [id number] [phone] RAÚL MANCIA PATIENT MEDICARE (WNR) MEDICARE (M) PART A Oct 04, 2006 PART A [id number] RAÚL MANCIA PATIENT MEDICARE (WNR) MEDICARE (M) PART A Oct 04, 2006 PART A [id number] [phone] RAÚL MANCIA PATIENT Selected Encounter This section includes the information on record at [place] for the Encounter. Date/Time Encounter Type Encounter Description Reason Provider Source May 30, 2024 03:30 PM OFFICE O/P EST SF 10 MIN PRIMARY CARE/MEDICINE ICD-10-CM C15.9 Malignant neoplasm of esophagus, unspecified OLIVA PEGUERO [facility] Encounter Template Text not used by [place] Assessments - Encounter Diagnoses This section includes the primary and secondary diagnoses documented for the Encounter. Date/Time Primary/Secondary Diagnosis Diagnosis Name Provider Source May 30, 2024 03:53 PM PRIMARY Malignant neoplasm of esophagus, unspecified OLIVA PEGUERO [facility] [place] [facility] Plan of Treatment: Future Appointments (+ 6 months) and Future Tests (+/- 45 days) The Plan of Treatment section includes future care activities for the patient from all [place] [facility]. This section includes future appointments and future orders which are active, pending or scheduled. Future Appointments This section includes appointments that were scheduled to occur 6 months from the date of the Encounter, up to a maximum of 20 appointments. The data comes from all [place] treatment facilities. Appointment Date/Time Appointment Type Appointme nt Facility Name Jul 27, 2024 08:00 AM AMBULATORY - MEDICINE [place] [facility] Aug 16, 2024 10:00 AM AMBULATORY - MEDICINE [facility] [place] [facility] Aug 18, 2024 09:15 AM AMBULATORY - MEDICINE [place] [facility] Oct 18, 2024 10:00 AM AMBULATORY - MEDICINE [facility] Lab Results: +/- 30 days of the encounter This section includes the Chemistry and Hematology Lab Results on record with [place] for the patient. Radiology Reports and Pathology Reports are provided separately, in subsequent sections. Lab Results This section contains the Chemistry/Hematology Results that were resulted 30 days before or 30 daysafter the date of the Encounter. Date/Time Source Result Type Result - Unit Interpretation Reference Range Comment May 24, 2024 07:39 AM [facility] TSH Specimen Type: SERUM No comment entered. Ordering Provider: OLIVA PEGUERO Report Released Date/Time: May 06, 2024 05:41 PM Reporting Lab: [address] [address] Performing Lab: [address] [address] TSH 3.73 u[IU]/mL 0.35-5.00 May 24, 2024 07:39 AM [facility] LIPID PANEL FASTING Specimen Type: SERUM No comment entered. Ordering Provider: OLIVA PEGUERO Report Released Date/Time: May 06, 2024 05:41 PM Reporting Lab: [address] [address] Performing Lab: [address] [address] CHOLESTEROL 183 mg/dL TRIGLYCERIDE 115 mg/dL 0-150 LDL calculated 120 mg/dL 0-129 CHOL/HDL 4.6 HDL CHOLESTEROL 40 mg/dL 40-60 May 24, 2024 07:39 AM [facility] LIVER FUNCTION Specimen Type: SERUM No comment entered. Ordering Provider: OLIVA PEGUERO Report Released Date/Time: May 06, 2024 05:41 PM Reporting Lab: [address] [address] Performing Lab: [address] [address] PROTEIN,TOTAL 7.1 g/dL 6.0-8.3 ALBUMIN 3.5 g/dL 3.5-5.0 ALKALINE PHOSPHATASE 233 U/L H 40-150 AST 21 U/L 5-34 ALT 16 U/L BILIRUBIN, TOTAL 0.4 mg/dL 0.2-1.2 May 24, 2024 07:39 AM [facility] BASIC METABOLIC PANEL (fasting) Specimen Type: SERUM No comment entered. Ordering Provider: OLIVA PEGUERO Report Released Date/Time: May 06, 2024 05:41 PM Reporting Lab: [address] [address] Performing Lab: [address] [address] UREA NITROGEN 23 mg/dL 7-25 GLUCOSE 109 mg/dL H 65-100 SODIUM 137 mmol/L 135-145 POTASSIUM 4.3 mmol/L 3.5-5.0 CHLORIDE 103 mmol/L 100-110 CO2 23 meq/L 20-30 CREATININE, Serum 0.83 mg/dL 0.50-1.40 eGFR(CKD-EPI 2020) 90 mL/min >60 May 24, 2024 07:39 AM [facility] URIC ACID Specimen Type: SERUM No comment entered. Ordering Provider: OLIVA PEGUERO Report Released Date/Time: May 06, 2024 05:41 PM Reporting Lab: [address] [address] Performing Lab: [address] [address] URIC ACID 4.6 mg/dL 3.5-7.2 May 24, 2024 07:39 AM [facility] URINALYSIS CLEAN CATCH Specimen Type: URINE Comment: If Glucose = >500 and Ketones are positive, please alert the Physician. Ordering Provider: OLIVA PEGUERO Report Released Date/Time: May 06, 2024 05:41 PM Reporting Lab: [address] [address] Performing Lab: [address] [address] UA COLOR Light-Yellow Yellow UA APPEARANCE Clear Clear UA GLUCOSE Normal mg/dL Negative UA KETONES NEGATIVE mg/dL Negative UA BLOOD NEGATIVE mg/dL Negative UA PROTEIN NEGATIVE mg/dL Negative UA NITRITE NEGATIVE mg/dL Negative UA BILIRUBIN NEGATIVE mg/dL Negative UA SPECIFIC GRAVITY 1.020 1.016-1.022 UA pH 5.5 5.0-9.0 UA UROBILINOGEN Normal mg/dL <2.0 UA LEUKOCYTE NEGATIVE Negative May 24, 2024 07:39 AM [facility] CBC AND DIFF (AUTO) Specimen Type: BLOOD No comment entered. Ordering Provider: OLIVA PEGUERO Report Released Date/Time: May 06, 2024 05:41 PM Reporting Lab: [facility] [address] [facility] [address] Performing Lab: [facility] [address] [facility] [address] WBC 8.44 10*3/uL 4.50-11.00 RBC 5.28 10*6/uL [...] 0.0 0.0-0.0 NRBC, ABS 0.00 10*3/uL 0.00-0.00 Vital Signs: All taken on the encounter date This section contains inpatient and outpatient Vital Signs collected on the date of the Encounter. Date/Time Temperature Pulse Blood Pressure Respiratory Rate SP02 Pain Height Weight Body Mass Index Source May 30, 2024 03:22 PM 97.9 99 110/72 16 96 0 72 184.5 25 [facility] [place] [facility] Social History: Smoking Status (Most current) and Tobacco Use (All prior to encounter date) This section includes the most current, and the historical, smoking and tobacco- related health factors from the [place] facility where the Encounter took place. Current Smoking Status This section includes the most current smoking, or tobacco-related health factor, from the [place] facility where the Encounter took place. Date/Time Current Smoking Status Comment Facil ity Jan 11, 2024 10:00 AM VA-TOBACCO NEVER USED [facility] Tobacco Use History This section includes a history of the smoking, or tobacco-related health factors, that were collected on or before the date of the Encounter. The data comes from the [place] facility where the Encounter took place. Date/Time Smoking Status/Tobacco Use Comment F acility Jan 27, 2023 10:00 AM VA-TOBACCO NEVER USED [facility] [place] [place] [facility] Jan 06, 2022 09:00 AM VA-TOBACCO NEVER USED [facility] [place] [facility] Dec 31, 2020 08:00 AM VA-TOBACCO NEVER USED [facility] [place] [facility] Dec 27, 2019 09:48 AM VA-TOBACCO NEVER USED [facility] [place] [facility] Jun 30, 2018 08:41 AM VA-TOBACCO NEVER USED [facility] [place] [facility] Dec 23, 2017 07:46 AM LIFETIME NON-TOBACCO USER [facility] [place] [facility] Dec 22, 2016 08:06 AM LIFETIME NON-TOBACCO USER [facility] [place] [facility] Dec 24, 2015 08:36 AM LIFETIME NON-TOBACCO USER [facility] [place] [facility] Jun 19, 2004 01:52 PM LIFETIME NON-SMOKER [facility] [place] [facility] Jun 19, 2004 01:52 PM LIFETIME NON-TOBACCO USER [facility] [place] [facility] Jun 19, 2004 01:34 PM LIFETIME NON-SMOKER [place] [facility] [place] [facility] Jun 19, 2004 01:34 PM LIFETIME NON-TOBACCO USER [place] [facility] Advance Directives: All historical and current Section Date Range: From patient's date of to the date document was created. This section includes ALL of a patient's completed or amended [place] Advance and Rescinded Directives. The entries below indicate that a directive exists for the patient, but an actual copy is not included with this document. The data comes from all [place] facilities. Date Advance Directives Provider Source May 20, 2006 ADVANCE DIRECTIVE MARINA FAJARDO [place] [facility] Encounter Notes: All associated encounter notes This section contains the clinical notes associated to the Encounter. Date/Time Encounter Note(s) Provider Source May 30, 2024 03:50 PM PHYSICIAN NOTE: LOCAL TITLE: MD NOTE STANDARD TITLE: PHYSICIAN NOTE DATE OF NOTE: MAY 30, 2024@15:50 ENTRY DATE: MAY 30, 2024@15:50:40 AUTHOR: OLIVA PEGUERO EXP COSIGNER: URGENCY: STATUS: COMPLETED Patient Name: RAÚL MANCIA VITALS: Patient temperature: 97.9 F [36.6 C] (05/30/2024 15:22) Blood pressure: 110/72 (05/30/2024 15:22) Patient height: 72 in [182.9 cm] (05/30/2024 15:22) Patient weight: 184.5 lb [83.69 kg] (05/30/2024 15:22) Patient BMI: BMI: 25.1 Patient pulse: 99 (05/30/2024 15:22) Patient respiration: 16 (05/30/2024 15:22) Patient Pulse Oximetry: 96% (05/30/2024 15:22) Pain Ratin (05/30/2024 15:22) Active VA Medications: Active Outpatient Medications (including Supplies): Active Outpatient Medications Status 1) ALLOPURINOL 100MG TAB TAKE TWO TABLETS BY MOUTH EVERY ACTIVE (S) DAY FOR GOUT 2) FEED BAG W/GRAVTY SET MISAEL COVID#[id number] USE 1 ACTIVE GRAVITY BAG TOPICALLY ONCE DAILY FOR NUTRITION 3) SIMVASTATIN 80MG TAB TAKE ONE-HALF TABLET BY MOUTH AT ACTIVE (S) BEDTIME FOR CHOLESTEROL 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 He feels well today with no complaints. He is eating normally. Normal bowel movements. Review of systems No chest pain or dyspnea No abdominal pain No trouble urinating No fever or chills No cough Physical examination Well-developed well-nourished male no acute distress Coronary no murmur Lungs clear Carotid no bruit No peripheral edema Mucous membranes moist Color, Urine (AX 4280): Light-Yellow Appearance, Urine (AX 4280): Clear Glucose, Urine (AX 4280): Normal Ketones, Urine (AX 4280): NEGATIVE Blood, Urine (AX 4280): NEGATIVE Protein, Urine (AX 4280): NEGATIVE Nitrite, Urine (AX 4280): NEGATIVE Bilirubin, Urine (AX 4280): NEGATIVE Specific [place], (AX 4280): 1.020 pH, Urine ([id number]): 5.5 Urobilinogen, Urine (AX 4280): Normal Leukocyte Esterase, (AX 4280): NEGATIVE TSH (Access): 3.73 GLUCOSE: 109 H UREA NITROGEN: 23 SODIUM: 137 POTASSIUM: 4.3 CHLORIDE: 103 CO2: 23 URIC ACID: 4.6 CHOLESTEROL: 183 PROTEIN,TOTAL: 7.1 ALBUMIN: 3.5 ALKALINE PHOSPHATASE: 233 H SGOT: 21 SGPT: 16 TRIGLYCERIDE: 115 LDL CHOL: 120 CHOL/HDL RATIO: 4.6 HDL: 40 BILIRUBIN,TOT.: 0.4 CREATININE-EGFR: 0.83 eGFR CKD-EPI 2020: 90 WBC: 8.44 RBC: 5.28 HGB: 13.2 HCT: 41.0 MCV: 77.7 L MCHC: 32.2 RDW: 18.7 H PLT: 255 MCH: 25.0 L Neut %: 81.5 H Lymph %: 10.2 L [place] %: 7.3 Eos %: 0.0 L Baso %: 0.5 Neut, Abs: 6.88 Lymph, Abs: 0.86 L [place], Abs: 0.62 Eos, Abs: 0.00 L Baso, Abs: 0.04 Immature Granulocytes %: 0.5 Immature Granulocytes, Abs: 0.04 NRBC%: 0.0 NRBC#: 0.00 I discussed above test results with patient Assessment and plan: 1. Esophageal cancer: Followed by oncology Plan continue oncology Follow-up 4 months clinic visit and lab Medication Reconciliation: Outpatient: Has the patient been taking medications as documented in the EMLR? YES: The patient has been taking medications as documented in the EMLR. Essential Medication List for Review used to complete this medication reconciliation. INCLUDED IN THIS LIST: Alphabetical list of active outpatient prescriptions dispensed from this [place] (local) and dispensed from another [place] or [facility] facility (remote) as well as inpatient [...] /delores/ Oliva Peguero MD Staff Physician Signed: 05/30/2024 15:53 OLIVA PEGUERO [place] [facility] May 30, 2024 03:25 PM PREVENTIVE MEDICIN E NURSING NOTE: LOCAL TITLE: CLINICAL REMINDERS/NURSING STANDARD TITLE: PREVENTIVE MEDICINE NURSING NOTE DATE OF NOTE: MAY 30, 2024@15:25 ENTRY DATE: MAY 30, 2024@15:26:01 AUTHOR: MAXINE JUNIOR EXP COSIGNER: URGENCY: STATUS: COMPLETED Falls & Incontinence Screen: Falls Screen: 4. No falls within the past year. Incontinence Screen No incontinence. (Optional) Whole Health Documentation: What matters the most to you? What motivates you to be healthy? (MAP) Response: nature /delores/ MAXINE JUNIOR LPN LPN Signed: 05/30/2024 15:28 MAXINE JUNIOR [facility]
--- OUTSIDE RECORDS SUMMARY | 2024-09-12 23:20 | XMS_ITS | Encounter Summary ---
Author Name [facility] [place] Address [address] [place] [address] Care Team Providers Care Manager Semiconductor Name Role Phone OLIVA PÉREZ Primary Care [...] Relationship to Policy Root TOMER [facility]MAN[facility] [employer] GE Apr 03, 2009 [id number] [phone] BALNCHEFRANCIS HERNANDEZ SPOUSE BCBS [facility] BLUE* Apr 03, 2009 [id number] BLANCHE, JANET SPOUSE BCBS [facility] [employer] GE Apr 03, 2009 [id number] FRANCIS MANCIA SPOUSE [employer] ([id number]) PRESCRIPT ION L4TA* Apr 03, 2009 L4TA [id number] FRANCIS MANCIA SPOUSE [employer] ([id number]) PRESCRIPT ION L4TA* Apr 03, 2009 L4TA [id number] FRANCIS MANCIA SPOUSE [employer] ([id number]) PRESCRIPT ION Apr 03, 2009 L4TA [id number] [phone] FRANCIS MANCIA SPOUSE MEDICARE (WNR) MEDICARE (M) PART B Jun 04, 2020 PART B [id number] [phone] RAÚL MANCIA PATIENT MEDICARE (WNR) MEDICARE (M) PART A Oct 04, 2006 PART A [id number] RAÚL MANCIA PATIENT MEDICARE (WNR) MEDICARE (M) PART A Oct 04, 2006 PART A [id number] [phone] RAÚL MANCIA PATIENT Selected Encounter This section includes the information on record at [place] for the Encounter. 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 Date/Time Primary/Secondary Diagnosis Diagnosis Name Provider Source Jul 28, 2024 10:28 AM PRIMARY Congenital pes cavus, unspecified foot [facility] [place] [facility] Jul 28, 2024 10:28 AM SECONDARY Neuralgia and neuritis, unspecified [facility] [place] [facility] Jul 28, 2024 10:28 AM SECONDARY Post-traumatic osteoarthritis, right ankle and foot [facility] [place] [facility] Plan of Treatment: Future Appointments (+ 6 months) and Future Tests (+/- 45 days) The Plan of Treatment section includes future care activities for the patient from all [place] treatmentfacilities. This section includes future appointments and future orders which are active, pending or scheduled. Future Appointments This section includes appointments that were scheduled to occur 6 months from the date of the Encounter, up to a maximum of 20 appointments. The data comes from all [place] treatment facilities. Appointment Date/Time Appointment Type Appointme nt Facility Name Aug 16, 2024 10:00 AM AMBULATORY - MEDICINE [place] C [facility] [place] [facility] Aug 18, 2024 09:15 AM AMBULATORY - MEDICINE [facility] C [facility] [place] [facility] Oct 18, 2024 10:00 AM AMBULATORY - MEDICINE NE C [facility] [place] [facility] Active, Pending, and Scheduled Orders This section includes a listing of several types of active, pending, and scheduled orders, including clinic medications orders, diagnostic test orders, procedure orders and consult orders; where the start date of the order is 45 days before the date of the Encounter or 45 days after the date of theEncounter. The data comes from all [place] treatment facilities. Test Date/Time Test Type Test Details Facility Name Aug 04, 2024 10:27 PM Consult Order COMMUNITY CARE-PULMONARY Cons Assistant Analyst's Choice [place] [facility] [place] [facility] Social History: Smoking Status (Most current) and Tobacco Use (All prior to encounter date) This section includes the most current, and the historical, smoking and tobacco- related health factors from the VA facility where the Encounter took place. Current Smoking Status This section includes the most current smoking, or tobacco-related health factor, from the VA facility where the Encounter took place. Date/Time Current Smoking Status Comment Facil ity Jan 11, 2024 10:00 AM VA-TOBACCO NEVER USED NE CNTRL [facility] [place] [facility] Tobacco Use History This section includes a history of the smoking, or tobacco-related health factors, that were collected on or before the date of the Encounter. The data comes from the [place] facility where the Encounter took place. Date/Time Smoking Status/Tobacco Use Comment F acility Jan 27, 2023 10:00 AM VA-TOBACCO NEVER USED VA [facility] [place] [facility] Jan 06, 2022 09:00 AM VA-TOBACCO NEVER USED [facility] [place] [facility] Dec 31, 2020 08:00 AM VA-TOBACCO NEVER USED [facility] [place] [facility] Dec 27, 2019 09:48 AM VA-TOBACCO NEVER USED VA [facility] [place] [facility] Jun 30, 2018 08:41 AM VA-TOBACCO NEVER USED VA [facility] [place] [facility] Dec 23, 2017 07:46 AM LIFETIME NON-TOBACCO USER [facility] [place] [facility] Dec 22, 2016 08:06 AM LIFETIME NON-TOBACCO USER [facility] [place] [facility] Dec 24, 2015 08:36 AM LIFETIME NON-TOBACCO USER [facility] [place] [facility] Jun 19, 2004 01:52 PM LIFETIME NON-SMOKER [facility] [place] [facility] Jun 19, 2004 01:52 PM LIFETIME NON-TOBACCO USER [facility] [place] [facility] Jun 19, 2004 01:34 PM LIFETIME NON-SMOKER [facility] [place] [facility] Jun 19, 2004 01:34 PM LIFETIME NON-TOBACCO USER [facility] Advance Directives: All historical and current Section Date Range: From patient's date of to the date document was created. This section includes ALL of a patient's completed or amended [place] Advance and Rescinded Directives. The entries below indicate that a directive exists for the patient, but an actual copy is not included with this document. The data comes from all [place] facilities. Date Advance Directives Provider Source May 20, 2006 ADVANCE DIRECTIVE MARINA FAJARDO [facility] Encounter Notes: All associated encounter notes This section contains the clinical notes associated to the Encounter. Date/Time Encounter Note(s) Provider Source Aug 09, 2024 03:08 PM LETTERS: LOCAL TITLE: PATIENT LETTER (B) STANDARD TITLE: LETTERS DATE OF NOTE: AUG 09, 2024@15:08 ENTRY DATE: AUG 09, 2024@15:08:19 AUTHOR: JOSEPH GREWAL EXP COSIGNER: URGENCY: STATUS: COMPLETED [facility] RAÚL MANCIA [address], [place], [address] AUG 09, 2024 Dear RAÚL MANCIA, Your shoes have arrived at the [facility] located at [address] [place] [address]. Please call [phone] ext. [phone] for Joseph or [phone]. [phone] for Gabriela to make a shoe fitting appointment. Clinic Hours are 8:30am-3:30pm. Walk-ins may not be accommodated. We hope to see [place] [address] JOSEPH GREWAL [facility]TR[facility] [place] [facility] Jul 27, 2024 08:14 AM PODIATRY NOTE: LOCAL TITLE: PODIATRY NOTE STANDARD TITLE: PODIATRY NOTE DATE OF NOTE: JUL 27, 2024@08:14 ENTRY DATE: JUL 27, 2024@08:14:49 AUTHOR: ZACHARY MALONEY EXP COSIGNER: URGENCY: STATUS: COMPLETED Podiatry [facility] Follow up Provider: Zachary Maloney Date: JUL 27, 2024 RAÚL MANCIA [address] [place] [id number] Apr [birth year] MALE [phone] PATIENT PHONE - Primary Care: OLIVA PÉREZ Follow up Visit Concern: Patient is a mouse 79-year-old male, with remote history, as a young adult injury to right foot with severance of extensor hallucis longus and attempted repair that left him with neuralgia neuritis and with degenerative changes at the first metatarsocuneiform joint. In addition to this patient has a pes cavus foot type. He has been managed in this clinic with shoe therapy and with orthotics which have been custom made. Patient returns annually for renewal of footwear and orthotics. Subjective: Patient reports that he continues to do well with shoe therapy and orthotics acknowledges neuralgia neuritis which is manageable, and pain is manageable so long as patient has footwear and support. Shoes are wearing out according to patient and insert is wearing out at the ball of the foot. 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 06/23/2016 OLIVA PÉREZ Pain in joint involving ankle and f 08/03/2007 PURVI SPARKS ACTINIC KERATOSES 799.9, Onset 0005/09/2007 OLIVA PÉREZ Gout 274.9, Onset 05/09/2007 OLIVA PÉREZ Arthritis * (ICD-9-CM 716.90) 716.9 02/11/2006 IRIS FERREIRA Hypertension * (ICD-9-CM 401.9) 401 06/19/2004 IRIS FERREIRA Hypercholesterolemia, Familial * (I 06/19/2004 IRIS FERREIRA Active mediciation: Active Outpatient Medications (including Supplies): Active Outpatient Medications Status 1) ALLOPURINOL 100MG TAB TAKE TWO TABLETS BY MOUTH EVERY ACTIVE DAY FOR GOUT 2) MOMETASONE 100MCG/ACTUAT 120D ORAL INHL INHALE 1 ACTIVE INHALATION BY MOUTH TWICE DAILY 3) SIMVASTATIN 80MG TAB TAKE ONE-HALF TABLET BY MOUTH AT ACTIVE BEDTIME FOR CHOLESTEROL Allergies: Data on this list may not be complete. Please check [facility]. FACILITY ALLERGY/ADR -------- No Remote Allergy/ADR Data available for this patient [place] CNTR [facility] [place] [facility] No Known Allergies PE: Well-appearing well-nourished well-developed 79-year-old male independently ambulatory very pleasant cooperative neatly dressed NAD Palpable pedal pulses warm pink skin Anesthesia neuritis appreciated over dorsal medial cutaneous nerve of the right foot Pain with range of motion and see joint No significant dorsal palpable bony abnormality Decreased function of the extensor hallucis longus right Pes cavus No calluses Nail tissue normal Impression: -Posttraumatic arthritis and neuralgia right foot -Stable Plan: -Reorder custom orthotics and Adrian shoes -Negotiated with patient to return in 1 year or sooner if any other problems arise Return sooner if any fever chills nausea, vomiting increased redness, swelling, drianage, pain, or flu like symptoms, or go to nearest emergency room / urgent care for evaluation. -all sharpes cleared, processed and or disposed of according to SOP/MCP. -As part of the service the pertinent primary care, specialty care and urgent care notes have been reviewed as well as the patient's medication list, problem list, and current imaging as well as past imaging, laboratory data and other pertinent contributory consults. -All new and discontinued medications have been discussed in detail with the patient and or caregiver, including indications for additions and deletions, as well as possible side effects, interactions as foreseen, and risk of not taking as prescribed If applicable, the patient was advised clearly on application of wound care agents how to apply and when to apply. The patient was able to recitethis information back to the prescriber with good understanding and agreed to the plan of care as indicated above. -Plan of care discuss with the patient and or caregiver, including medical decision making which includes discussion of abnormal lab results, imaging and other diagnostic modalities as well as results of the physical exam and cyber security consultant opinions and recommendations as sought. Alternatives to surgery or outlined care above as appropriate have also been discussed. -The patient/ caregiver has displayed good understanding of above and with no further questions at this time. Patient is aware of next appointment and agrees to follow-up interval. Patient agrees to seek sooner follow up if any irregular events occur in between such as cardinal signs of infection, increased pain or deformity. -The on this visit was given information dentalDoctors service and encouraged to enroll if not already having done so. /delores/ ZACHARY MALONEY DPM PODIATRY ATTENDING Signed: 07/28/2024 10:28 ZACHARY MALONEY CNTRL [facility]
--- OUTSIDE RECORDS SUMMARY | 2024-09-12 23:20 | XMS_ITS | Encounter Summary ---
Author Name Department of [facility] Organization [facility] [place] Address [address] [place] [address] Care Team Providers Care Livestock Auctioneer Name Role Phone OLIVA PEGUERO Primary Care [...] Policy Root TOMER ROBLES OF [facility] [employer] Active GE Apr 03, 2009 [id number] BLANCHE, JANET SPOUSE [facility] BLUE* Apr 03, 2009 [id number] BLANCHE, JANET SPOUSE BCBS [facility] [employer] GE Apr 03, 2009 [id number] FRANCIS MANCIA SPOUSE [employer] ([id number]) PRESCRIPT ION L4TA* Apr 03, 2009 L4TA [id number] FRANCIS MANCIA SPOUSE [employer] ([id number]) PRESCRIPT ION L4TA* Apr 03, 2009 L4TA [id number] FRANCIS MANCIA SPOUSE [employer] ([id number]) PRESCRIPT ION Apr 03, 2009 L4TA [id number] FRANCIS MANCIA SPOUSE MEDICARE (WNR) MEDICARE (M) PART B Jun 04, 2020 PART B [id number] [phone] RAÚL MANCIA PATIENT MEDICARE (WNR) MEDICARE (M) PART A Oct 04, 2006 PART A [id number] RAÚL MANCIA PATIENT MEDICARE (WNR) MEDICARE (M) PART A Oct 04, 2006 PART A [id number] [phone] RAÚL MANCIA PATIENT Selected Encounter This section includes the information on record at MD for the Encounter. Date/Time Encounter Type Encounter Description Reason Pro vider Source Jun 29, 2024 01:57 PM Outpatient Encounter PRIMARY CARE/MEDICINE IHE Encounter Template Text not used by MD Plan of Treatment: Future Appointments (+ 6 months) and Future Tests (+/- 45 days) The Plan of Treatment section includes future care activities for the patient from all MD treatmentfacilities. This section includes future appointments and future orders which are active, pending or scheduled. Future Appointments This section includes appointments that were scheduled to occur 6 months from the date of the Encounter, up to a maximum of 20 appointments. The data comes from all MD treatment facilities. Appointment Date/Time Appointment Type Appointme nt Facility Name Jul 27, 2024 08:00 AM AMBULATORY - MEDICINE [facility] NTR [facility] [place] [facility] Aug 16, 2024 10:00 AM AMBULATORY MEDICINE [facility] NTRL [facility] [place] [facility] Aug 18, 2024 09:15 AM AMBULATORY MEDICINE [facility] NTR [facility] [place] [facility] Oct 18, 2024 10:00 AM [facility] Active, Pending, and Scheduled Orders This section includes a listing of several types of active, pending, and scheduled orders, including clinic medications orders, diagnostic test orders, procedure orders and consult orders; where the start date of the order is 45 days before the date of the Encounter or 45 days after the date of theEncounter. The data comes from all MD treatment facilities. Test Date/Time Test Type Test Details Facility Name Aug 04, 2024 10:27 PM Consult Order COMMUNITY CARE-PULMONARY Cons Pet Groomer's Choice [facility]L [facility] [place] [facility] Social History: Smoking Status (Most current) and Tobacco Use (All prior to encounter date) This section includes the most current, and the historical, smoking and tobacco- related health factors from the MD facility where the Encounter took place. Current Smoking Status This section includes the most current smoking, or tobacco-related health factor, from the MD facility where the Encounter took place. Date/Time Current Smoking Status Comment Facil ity Jan 11, 2024 10:00 AM VA-TOBACCO NEVER USED MD CNTRL [facility] [place] [facility] Tobacco Use History This section includes a history of the smoking, or tobacco-related health factors, that were collected on or before the date of the Encounter. The data comes from the MD facility where the Encounter took place. Date/Time [...] 19, 2004 01:34 PM LIFETIME NON-TOBACCO USER [facility] Advance Directives: All historical and current Section Date Range: From patient's date of to the date document was created. This section includes ALL of a patient's completed or amended MD Advance and Rescinded Directives. The entries below indicate that a directive exists for the patient, but an actual copy is not included with this document. The data comes from all MD facilities. Date Advance Directives Provider Source May 20, 2006 ADVANCE DIRECTIVE MARINA FAJARDO [facility] Encounter Notes: All associated encounter notes This section contains the clinical notes associated to the Encounter. Date/Time Encounter Note(s) Provider Source Jun 29, 2024 01:57 PM NONVA CONSULT: LOCAL TITLE: MD/OUTSIDE CONSULT REPORT SUMMARY STANDARD TITLE: NONVA CONSULT DATE OF NOTE: JUN 29, 2024@13:57 ENTRY DATE: JUN 29, 2024@13:57:34 AUTHOR: OLIVA PEGUERO EXP COSIGNER: URGENCY: STATUS: COMPLETED 06-19-[address] Guzman Hematology oncology [facility] Chief complaint: Follow-up cancer of the esophagus Treated with radiation therapy and chemotherapy Doing well Plan: Continue current treatment Follow-up 6 weeks /delores/ Oliva Peguero MD Staff Physician Signed: 06/29/2024 13:59 OLIVA PEGUERO [facility]
--- OUTSIDE RECORDS SUMMARY | 2024-09-12 23:20 | XMS_ITS | Encounter Summary ---
Author Name [place] Address [address] [place] [address] Care Team Providers Care Bilingual Speech Therapist Name Role Phone OLIVA PEGUERO Primary Care [...] Relationship to Policy Root TOMER ROBLES OF [facility] [employer] GE Apr 03, 2009 [id number] [phone] BLANCHE, JANET SPOUSE BCBS [facility] BLUE* Apr 03, 2009 [id number] BLANCHE, JANET SPOUSE BCBS [facility] [employer] GE Apr 03, 2009 [id number] [phone] FRANCIS MANCIA SPOUSE [employer] ([id number]) PRESCRIPT ION L4TA* Apr 03, 2009 L4TA [id number] FRANCIS MANCIA SPOUSE [employer] ([id number]) PRESCRIPT ION L4TA* Apr 03, 2009 L4TA [id number] FRANCIS MANCIA SPOUSE [employer] ([id number]) PRESCRIPT ION Apr 03, 2009 L4TA [id number] FRANCIS MANCIA SPOUSE MEDICARE (WNR) MEDICARE (M) PART B Jun 04, 2020 PART B [id number] RAÚL MANCIA PATIENT MEDICARE (WNR) MEDICARE (M) PART A Oct 04, 2006 PART A [id number] RAÚL MANCIA PATIENT MEDICARE (WNR) MEDICARE (M) PART A Oct 04, 2006 PART A [id number] RAÚL MANCIA PATIENT Selected Encounter This section includes the information on record at [place] for the Encounter. Date/Time Encounter Type Encounter Description Reason Pro vider Source Aug 04, 2024 10:25 PM Outpatient Encounter PRIMARY CARE/MEDICINE IHE Encounter Template Text not used by [place] Plan of Treatment: Future Appointments (+ 6 months) and Future Tests (+/- 45 days) The Plan of Treatment section includes future care activities for the patient from all [place] treatmentfacilities. This section includes future appointments and future orders which are active, pending or scheduled. Future Appointments This section includes appointments that were scheduled to occur 6 months from the date of the Encounter, up to a maximum of 20 appointments. The data comes from all [facility]. Appointment Date/Time Appointment Type Appointme nt Facility Name Aug 16, 2024 10:00 AM [facility] [place] [facility] Aug 18, 2024 09:15 AM [facility] [place] [facility] Oct 18, 2024 10:00 AM [facility] Active, Pending, and Scheduled Orders This section includes a listing of several types of active, pending, and scheduled orders, including clinic medications orders, diagnostic test orders, procedure orders and consult orders; where the start date of the order is 45 days before the date of the Encounter or 45 days after the date of theEncounter. The data comes from all [place] treatment [facility]. Test Date/Time Test Type Test Details Facility Name Aug 04, 2024 10:27 PM Consult Order COMMUNITY CARE-PULMONARY Cons Checking Clerk's Choice [facility] [place] [facility] Social History: Smoking Status (Most current) and Tobacco Use (All prior to encounter date) This section includes the most current, and the historical, smoking and tobacco- related health factors from the [place] facility where the Encounter took place. Current Smoking Status This section includes the most current smoking, or tobacco-related health factor, from the [place] facility where the Encounter took place. Date/Time Current Smoking Status Comment Facil ity Jan 11, 2024 10:00 AM VA-TOBACCO NEVER USED [place] CN[facility] [place] [facility] Tobacco Use History This section includes a history of the smoking, or tobacco-related health factors, that were collected on or before the date of the Encounter. The data comes from the [place] facility where the Encounter took place. Date/Time Smoking Status/Tobacco Use Comment F acility Jan 27, 2023 10:00 AM VA-TOBACCO NEVER USED VA [facility] [place] [facility] Jan 06, 2022 09:00 AM VA-TOBACCO NEVER USED [facility] [place] [facility] Dec 31, 2020 08:00 AM VA-TOBACCO NEVER USED [facility] [place] [facility] Dec 27, 2019 09:48 AM VA-TOBACCO NEVER USED [facility] [place] [facility] Jun 30, 2018 08:41 AM VA-TOBACCO NEVER USED [facility] [place] [facility] Dec 23, 2017 07:46 AM LIFETIME NON-TOBACCO USER [facility] [place] [facility] Dec 22, 2016 08:06 AM LIFETIME NON-TOBACCO USER [facility] [place] [facility] Dec 24, 2015 08:36 AM LIFETIME NON-TOBACCO USER [facility] [place] [facility] Jun 19, 2004 01:52 PM LIFETIME NON-SMOKER [facility] [place] [facility] Jun 19, 2004 01:52 PM LIFETIME NON-TOBACCO USER [facility] [place] [facility] Jun 19, 2004 01:34 PM LIFETIME NON-SMOKER [facility] [place] [facility] Jun 19, 2004 01:34 PM LIFETIME NON-TOBACCO USER [facility] [place] [facility] Advance Directives: All historical and current Section Date Range: From patient's date of to the date document was created. This section includes ALL of a patient's completed or amended [place] Advance and Rescinded Directives. The entries below indicate that a directive exists for the patient, but an actual copy is not included with this document. The data comes from all [place] facilities. Date Advance Directives Provider Source May 20, 2006 ADVANCE DIRECTIVE MARINA FAJARDO [facility] Encounter Notes: All associated encounter notes This section contains the clinical notes associated to the Encounter. Date/Time Encounter Note(s) Provider Source Aug 04, 2024 10:27 PM PHYSICIAN NOTE: LOCAL TITLE: MD NOTE STANDARD TITLE: PHYSICIAN NOTE DATE OF NOTE: AUG 04, 2024@22:27 ENTRY DATE: AUG 04, 2024@22:27:59 AUTHOR: OLIVA PEGUERO EXP COSIGNER: URGENCY: STATUS: COMPLETED Renewed consult community care pulmonary for lung nodule. /delores/ Oliva Peguero MD Staff Physician Signed: 08/04/2024 22:28 OLIVA PEGUERO [facility]
--- OUTSIDE RECORDS SUMMARY | 2024-09-12 23:20 | XMS_ITS ---
Author Name [facility] [place] [facility] [place] Organization [facility] [place] [facility] [place] Address [address] [place] [address] Care Team Providers Care Cleaner Furniture Name Role Phone OLIVA PÉREZ Primary Care [...] Relationship to Policy Root T[facility]ER [facility] [employer] GE Apr 03, 2009 [id number] FRANCIS MANCIA SPOUSE [facility]BS [facility] BLUE* Apr 03, 2009 [id number] [phone] BLANCHE, JANET SPOUSE BCBS [facility] [employer] GE Apr 03, 2009 [id number] FRANCIS MANCIA SPOUSE [employer] S[employer]IP[employer] ([id number]) PRESCRIPT ION L4TA* Apr 03, 2009 L4TA [id number] FRANCIS MANCIA SPOUSE [employer] ([id number]) PRESCRIPT ION L4TA* Apr 03, 2009 L4TA [id number] FRANCIS MANCIA SPOUSE [employer] ([id number]) PRESCRIPT ION Apr 03, 2009 L4TA [id number] FRANCIS MANCIA SPOUSE MEDICARE (WNR) MEDICARE (M) PART B Jun 04, 2020 PART B [id number] RAÚL MANCIA PATIENT MEDICARE (WNR) MEDICARE (M) PART A Oct 04, 2006 PART A [id number] RAÚL MANCIA PATIENT MEDICARE (WNR) MEDICARE (M) PART A Oct 04, 2006 PART A [id number] RAÚL MANCIA PATIENT Selected Encounter This section includes the information on record at [place] for the Encounter. Date/Time Encounter Type Encounter Description Reason Pro vider Source Jun 19, 2024 12:00 AM Outpatient Encounter COMMUNITY CARE CONSULT IHE Encounter Template Text not used by [place] Plan of Treatment: Future Appointments (+ 6 months) and Future Tests (+/- 45 days) The Plan of Treatment section includes future care activities for the patient from all [place] treatmentfacilities. This section includes future appointments and future orders which are active, pending or scheduled. Future Appointments This section includes appointments that were scheduled to occur 6 months from the date of the Encounter, up to a maximum of 20 appointments. The data comes from all [place] treatment facilities. Appointment Date/Time Appointment Type Appointme nt Facility Name Jul 27, 2024 08:00 AM AMBULATORY - MEDICINE [facility] [place] [facility] Aug 16, 2024 10:00 AM AMBULATORY MEDICINE [facility] [place] [facility] Aug 18, 2024 09:15 AM AMBULATORY MEDICINE [facility] [place] [facility] Oct 18, 2024 10:00 AM AM[facility]ULATORY [facility]IC[facility] Lab Results: +/- 30 days of the encounter This section includes the Chemistry and Hematology Lab Results on record with [place] for the patient. Radiology Reports and Pathology Reports are provided separately, in subsequent sections. Lab Results This section contains the Chemistry/Hematology Results that were resulted 30 days before or 30 daysafter the date of the Encounter. Date/Time Source Result Type Result - Unit Interpretation Reference Range Comment May 24, 2024 07:39 AM [facility] TSH Specimen Type: SERUM No comment entered. Ordering Provider: OLIVA PÉREZ Report Released Date/Time: May 06, 2024 05:41 PM Reporting Lab: [facility] [address] [facility] [address] Performing Lab: [address] [address] TSH 3.73 u[IU]/mL 0.35-5.00 May 24, 2024 07:39 AM [facility] LIPID PANEL FASTING Specimen Type: SERUM No comment entered. Ordering Provider: OLIVA PÉREZ Report Released Date/Time: May 06, 2024 05:41 PM Reporting Lab: [address] [address] Performing Lab: [address] [address] CHOLESTEROL 183 mg/dL TRIGLYCERIDE 115 mg/dL 0-150 LDL calculated 120 mg/dL 0-129 CHOL/HDL 4.6 HDL CHOLESTEROL 40 mg/dL 40-60 May 24, 2024 07:39 AM [facility] LIVER FUNCTION Specimen Type: SERUM No comment entered. Ordering Provider: OLIVA PÉREZ Report Released Date/Time: May 06, 2024 05:41 PM Reporting Lab: [address] [address] Performing Lab: [address] [address] PROTEIN,TOTAL 7.1 g/dL 6.0-8.3 ALBUMIN 3.5 g/dL 3.5-5.0 ALKALINE PHOSPHATASE 233 U/L H 40-150 AST 21 U/L 5-34 ALT 16 U/L BILIRUBIN, TOTAL 0.4 mg/dL 0.2-1.2 May 24, 2024 07:39 AM [facility] BASIC METABOLIC PANEL (fasting) Specimen Type: SERUM No comment entered. Ordering Provider: OLIVA PÉREZ Report Released Date/Time: May 06, 2024 05:41 PM Reporting Lab: [address] [address] Performing Lab: [address] [address] UREA NITROGEN 23 mg/dL 7-25 GLUCOSE 109 mg/dL H 65-100 SODIUM 137 mmol/L 135-145 POTASSIUM 4.3 mmol/L 3.5-5.0 CHLORIDE 103 mmol/L 100-110 CO2 23 meq/L 20-30 CREATININE, Serum 0.83 mg/dL 0.50-1.40 eGFR(CKD-EPI 2020) 90 mL/min >60 May 24, 2024 07:39 AM [facility] URIC ACID Specimen Type: SERUM No comment entered. Ordering Provider: OLIVA PÉREZ Report Released Date/Time: May 06, 2024 05:41 PM Reporting Lab: [address] [address] Performing Lab: [address] [address] URIC ACID 4.6 mg/dL 3.5-7.2 May 24, 2024 07:39 AM [facility] URINALYSIS CLEAN CATCH Specimen Type: URINE Comment: If Glucose = >500 and Ketones are positive, please alert the Physician. Ordering Provider: OLIVA PÉREZ Report Released Date/Time: May 06, 2024 05:41 PM Reporting Lab: [address] [address] Performing Lab: [address] [address] UA COLOR Light-Yellow Yellow UA APPEARANCE Clear Clear UA GLUCOSE Normal mg/dL Negative UA KETONES NEGATIVE mg/dL Negative UA BLOOD NEGATIVE mg/dL Negative UA PROTEIN NEGATIVE mg/dL Negative UA NITRITE NEGATIVE mg/dL Negative UA BILIRUBIN NEGATIVE mg/dL Negative UA SPECIFIC GRAVITY 1.020 1.016-1.022 UA pH 5.5 5.0-9.0 UA UROBILINOGEN Normal mg/dL <2.0 UA LEUKOCYTE NEGATIVE Negative May 24, 2024 07:39 AM [facility] CBC AND DIFF (AUTO) Specimen Type: BLOOD No comment entered. Ordering Provider: OLIVA PÉREZ Report Released Date/Time: May 06, 2024 05:41 PM Reporting Lab: [facility] [address] [facility] [address] Performing Lab: [facility] [address] [facility] [address] WBC 8.44 10*3/uL 4.50-11.00 RBC 5.28 10*6/uL [...] and tobacco- related health factors from the [place] facility where the Encounter took place. Current Smoking Status This section includes the most current smoking, or tobacco-related health factor, from the [place] facility where the Encounter took place. Date/Time Current Smoking Status Comment Ronald ity Jan 11, 2024 10:00 AM VA-TOBACCO NEVER USED [place] [facility] Tobacco Use History This section includes a history of the smoking, or tobacco-related health factors, that were collected on or before the date of the Encounter. The data comes from the [place] facility where the Encounter took place. Date/Time Smoking Status/Tobacco Use Comment F acility Jan 27, 2023 10:00 AM VA-TOBACCO NEVER USED [place] [facility] [place] [facility] Jan 06, 2022 09:00 AM VA-TOBACCO NEVER USED [place] [facility] [place] [facility] Dec 31, 2020 08:00 AM VA-TOBACCO NEVER USED [place] [facility] [place] [facility] Dec 27, 2019 09:48 AM VA-TOBACCO NEVER USED [place] [facility] [place] [facility] Jun 30, 2018 08:41 AM VA-TOBACCO NEVER USED [place] [facility] [place] [facility] Dec 23, 2017 07:46 AM LIFETIME NON-TOBACCO USER [place] [facility] [place] [facility] Dec 22, 2016 08:06 AM LIFETIME NON-TOBACCO USER [place] [place] [facility] Dec 24, 2015 08:36 AM LIFETIME NON-TOBACCO USER [place] [facility] [place] [facility] Jun 19, 2004 01:52 PM LIFETIME NON-SMOKER [place] [place] [facility] Jun 19, 2004 01:52 PM LIFETIME NON-TOBACCO USER [place] [facility] [place] [facility] Jun 19, 2004 01:34 PM LIFETIME NON-SMOKER [place] [facility] [place] [facility] Jun 19, 2004 01:34 PM LIFETIME NON-TOBACCO USER [place] [facility] [place] [facility] Advance Directives: All historical and current Section Date Range: From patient's date of to the date document was created. This section includes ALL of a patient's completed or amended VA Advance and Rescinded Directives. The entries below indicate that a directive exists for the patient, but an actual copy is not included with this document. The data comes from all [place] facilities. Date Advance Directives Provider Source May 20, 2006 ADVANCE DIRECTIVE MARINA FAJARDO [facility] Encounter Notes: All associated encounter notes This section contains the clinical notes associated to the Encounter. Date/Time Encounter Note(s) Provider Source Jun 19, 2024 12:00 AM NONVA CONSULT: LOCAL TITLE: COMMUNITY CARE-CONSULT RESULT NOTE STANDARD TITLE: NONVA CONSULT DATE OF NOTE: JUN 19, 2024 ENTRY DATE: JUL 12, 2024@07:35:37 AUTHOR: ROSHNI FINLEY EXP COSIGNER: URGENCY: STATUS: COMPLETED VistA Imaging - Scanned Document SCANNED DOCUMENT SIGNATURE NOT REQUIRED Electronically Filed: 07/12/2024 by: ROSHNI CAMPBELL [facility]
--- OUTSIDE RECORDS SUMMARY | 2024-09-12 23:20 | XMS_ITS | Encounter Summary ---
Author Name [facility] [place] Organization [place] Address [address] [place] [address] Care Team Providers Care Wax Ball Knock Out Worker Name Role Phone OLIVA PÉREZ Primary Care [...] Relationship to Policy Root [facility] [employer] GE Apr 03, 2009 [id number] FRANCIS MANCIA SPOUSE BCBS [facility] BLUE* Apr 03, 2009 [id number] BLANCHE, JANET SPOUSE BCBS [facility] [employer] GE Apr 03, 2009 [id number] FRANCIS MANCIA SPOUSE [employer] ([id number]) PRESCRIPT ION L4TA* Apr 03, 2009 L4TA [id number] FRANCIS MANCIA SPOUSE [employer] ([id number]) PRESCRIPT ION L4TA* Apr 03, 2009 L4TA [id number] FRANCIS MANCIA SPOUSE [employer] ([id number]) PRESCRIPT ION Apr 03, 2009 L4TA [id number] FRANCIS MANCIA SPOUSE MEDICARE (WNR) MEDICARE (M) PART B Jun 04, 2020 PART B [id number] RAÚL MANCIA PATIENT MEDICARE (WNR) MEDICARE (M) PART A Oct 04, 2006 PART A [id number] RAÚL MANCIA PATIENT MEDICARE (WNR) MEDICARE (M) PART A Oct 04, 2006 PART A [id number] RAÚL MANCIA PATIENT Selected Encounter This section includes the information on record at [place] for the Encounter. Date/Time Encounter Type Encounter Description Reason Pro vider Source Jun 15, 2024 12:00 AM Outpatient Encounter COMMUNITY CARE [...] 27, 2024 08:00 AM AMBULATORY - MEDICINE [facility] [place] [facility] Aug 16, 2024 10:00 AM AMBULATORY MEDICINE [facility] [facility] Aug 18, 2024 09:15 AM AMBULATORY MEDICINE [facility] [place] [facility] Oct 18, 2024 10:00 AM AMBULATORY MEDICINE [facility] Lab Results: +/- 30 days of [...] Range Comment May 24, 2024 07:39 AM [facility] TSH Specimen Type: SERUM No comment entered. Ordering Provider: OLIVA PÉREZ Report Released Date/Time: May 06, 2024 05:41 PM Reporting Lab: [facility] [address] [facility] [address] Performing Lab: [address] [address] TSH 3.73 u[IU]/mL 0.35-5.00 May 24, 2024 07:39 AM [facility] LIPID PANEL FASTING Specimen Type: SERUM No comment entered. Ordering Provider: OLIVA PÉREZ Report Released Date/Time: May 06, 2024 05:41 PM Reporting Lab: [address] [address] Performing Lab: [address] [address] CHOLESTEROL 183 mg/dL TRIGLYCERIDE 115 mg/dL 0-150 LDL calculated 120 mg/dL 0-129 CHOL/HDL 4.6 HDL CHOLESTEROL 40 mg/dL 40-60 May 24, 2024 07:39 AM [facility] LIVER FUNCTION Specimen Type: SERUM No comment entered. Ordering Provider: OLIVA PÉREZ Report Released Date/Time: May 06, 2024 05:41 PM Reporting Lab: [address] [address] Performing Lab: [address] [address] PROTEIN,TOTAL 7.1 g/dL 6.0-8.3 ALBUMIN 3.5 g/dL 3.5-5.0 ALKALINE PHOSPHATASE 233 U/L H 40-150 AST 21 U/L 5-34 ALT 16 U/L BILIRUBIN, TOTAL 0.4 mg/dL 0.2-1.2 May 24, 2024 07:39 AM [facility] BASIC METABOLIC PANEL (fasting) Specimen Type: SERUM No comment entered. Ordering Provider: OLIVA PÉREZ Report Released Date/Time: May 06, 2024 05:41 PM Reporting Lab: [address] [address] Performing Lab: [address] [address] UREA NITROGEN 23 mg/dL 7-25 GLUCOSE 109 mg/dL H 65-100 SODIUM 137 mmol/L 135-145 POTASSIUM 4.3 mmol/L 3.5-5.0 CHLORIDE 103 mmol/L 100-110 CO2 23 meq/L 20-30 CREATININE, Serum 0.83 mg/dL 0.50-1.40 eGFR(CKD-EPI 2020) 90 mL/min >60 May 24, 2024 07:39 AM [facility] URIC ACID Specimen Type: SERUM No comment entered. Ordering Provider: OLIVA PÉREZ Report Released Date/Time: May 06, 2024 05:41 PM Reporting Lab: [address] [address] Performing Lab: [address] [address] URIC ACID 4.6 mg/dL 3.5-7.2 May 24, 2024 07:39 AM [facility] URINALYSIS CLEAN CATCH Specimen Type: URINE Comment: If Glucose = >500 and Ketones are positive, please alert the Physician. Ordering Provider: OLIVA PÉREZ Report Released Date/Time: May 06, 2024 05:41 PM Reporting Lab: [address] [address] Performing Lab: [address] [address] UA COLOR Light-Yellow Yellow UA APPEARANCE Clear Clear UA GLUCOSE Normal mg/dL Negative UA KETONES NEGATIVE mg/dL Negative UA BLOOD NEGATIVE mg/dL Negative UA PROTEIN NEGATIVE mg/dL Negative UA NITRITE NEGATIVE mg/dL Negative UA BILIRUBIN NEGATIVE mg/dL Negative UA SPECIFIC GRAVITY 1.020 1.016-1.022 UA pH 5.5 5.0-9.0 UA UROBILINOGEN Normal mg/dL <2.0 UA LEUKOCYTE NEGATIVE Negative May 24, 2024 07:39 AM [facility] CBC AND DIFF (AUTO) Specimen Type: BLOOD No comment entered. Ordering Provider: OLIVA PÉREZ Report Released Date/Time: May 06, 2024 05:41 PM Reporting Lab: [facility] [address] [facility] [address] Performing Lab: [facility] [address] [facility] [address] WBC 8.44 10*3/uL 4.50-11.00 RBC 5.28 10*6/uL [...] 11, 2024 10:00 AM VA-TOBACCO NEVER USED [place] [facility] Tobacco Use History This section includes a history of the smoking, or tobacco-related health factors, that were collected on or before the date of the Encounter. The data comes from the [place] facility where the Encounter took place. Date/Time Smoking Status/Tobacco Use Comment F acility Jan 27, 2023 10:00 AM VA-TOBACCO NEVER USED [place] [place] [facility] Jan 06, 2022 09:00 AM VA-TOBACCO NEVER USED [place] [place] [facility] Dec 31, 2020 08:00 AM VA-TOBACCO NEVER USED [place] [facility] Dec 27, 2019 09:48 AM VA-TOBACCO NEVER USED [place] [place] [facility] Jun 30, 2018 08:41 AM VA-TOBACCO NEVER USED [place] [place] [facility] Dec 23, 2017 07:46 AM LIFETIME NON-TOBACCO USER [facility] [place] [facility] Dec 22, 2016 08:06 AM LIFETIME NON-TOBACCO USER [place] [facility] [place] [facility] Dec 24, 2015 08:36 AM LIFETIME NON-TOBACCO USER [place] [facility] [place] [facility] Jun 19, 2004 01:52 PM LIFETIME NON-SMOKER [place] [place] [facility] Jun 19, 2004 01:52 PM LIFETIME NON-TOBACCO USER [place] [facility] [place] [facility] Jun 19, 2004 01:34 PM LIFETIME NON-SMOKER [place] [place] [facility] Jun 19, 2004 01:34 PM LIFETIME NON-TOBACCO USER [place] [facility] Advance Directives: All historical and current [...] ADVANCE DIRECTIVE MARINA FAJARDO [place] [facility] Encounter Notes: All associated encounter notes This section contains the clinical notes associated to the Encounter. Date/Time Encounter Note(s) Provider Source Jun 15, 2024 12:00 AM NONVA CONSULT: LOCAL TITLE: COMMUNITY CARE-CONSULT RESULT NOTE STANDARD TITLE: NONVA CONSULT DATE OF NOTE: JUN 15, 2024 ENTRY DATE: JUL 04, 2024@09:35:57 AUTHOR: MARILIN AUGUSTIN EXP COSIGNER: URGENCY: STATUS: COMPLETED VistA Imaging - Scanned Document SCANNED DOCUMENT SIGNATURE NOT REQUIRED Electronically Filed: 07/04/2024 by: MARILIN AUGUSTIN PSYCH THERAPIST MARILIN AUGUSTIN [place] [facility]
--- OUTSIDE RECORDS SUMMARY | 2024-09-12 23:23 | XMS_ITS ---
Author Organization [facility] Address [address] [place] [address] Care Team Providers Care Bench Lay Out Technician Name Role Phone Vincent Peguero MD Primary Care Provider Unavailab Alexy Vazquez Unavailable [phone] REASON FOR VISIT ANEMIA, IRON DEFICIENCY, ANEMIA Encounters Encounter Location Date Provider Diagnosis [facility] [address] [place] [address] 06/03/2023 Alexy Fitzgerald PLAN OF TREATMENT No Information
--- OUTSIDE RECORDS SUMMARY | 2024-09-12 23:24 | XMS_ITS ---
Author Organization [facility] Address [address] [place] [address] Care Team Providers Care Client Project Coordinator Name Role Phone Vincent Peguero MD Primary Care Provider Unavailab Alexy Vazquez Unavailable [phone] REASON FOR VISIT cancel ov Encounters Encounter Location Date Provider Diagnosis [facility] [address] [place] [address] 03/19/2023 Alexy Fitzgerald PLAN OF TREATMENT No Information
--- OUTSIDE RECORDS SUMMARY | 2024-09-12 23:24 | XMS_ITS ---
Author Organization [facility] Address [address] [place] [address] Care Team Providers Care Pipe Organ Installer Name Role Phone Vincent Peguero MD Primary Care Provider Unavailab Alexy Vazquez Unavailable [phone] REASON FOR VISIT ANEMIA, IRON DEFICIENCY, ANEMIA Encounters Encounter Location Date Provider Diagnosis [facility] [address] [place] [address] 04/01/2023 Alexy Fitzgerald PLAN OF TREATMENT No Information
--- OUTSIDE RECORDS SUMMARY | 2024-09-12 23:24 | XMS_ITS | Patient Health Record ---
Author Organization [facility] Address [address] [place] [address] Care Team Providers Care Inside Plant Supervisor Name Role Phone Sudhir OTTO, Vincent Primary Care Provider UnavailAlexy Rodriguez Unavailable [phone] REASON FOR REFERRAL No Information SOCIAL HISTORY Sex Assigned At : Social History Observation Description Sex Assigned At Unknown PROBLEMS Problem Type ICD Code Onset Dates Problem Status W/U Status Risk SNOMED Code Notes Problem Diverticulitis (K57.92) Active confirmed [id number] PLAN OF TREATMENT No Information Insurance Providers Payer Name Payer Address Payer Phone Subscriber Number Group Number Insured Name Patient Relationship to Insured Coverage Start Date Coverage End Date [facility] [employer] [address] [place] [id number] RAÚL MANCIA Self - patient is the insured
== END 2024-09-07 07:27 | disposition home or self-care (01) ==
LOC: HO.CT 07:26
PROVIDERS: PCP Internal Medicine; Visit Provider Hospitalist
DX: R91.1 Solitary pulmonary nodule (principal)
CPT/HCPCS: 71250

== ENCOUNTER → 2024-09-07 07:29 | Outpatient (BNV) | payer OTHER, SELFPAY | PROVIDERS: PCP Internal Medicine; Visit Provider Radiology Diagnostic Radiology | DX: J84.9 Interstitial pulmonary disease, unspecified (principal); I89.8 Other specified noninfective disorders of lymphatic vessels and lymph nodes; I31.31 Malignant pericardial effusion in diseases classified elsewhere | CPT/HCPCS: 71250 ==

== ENCOUNTER 2024-09-21 08:42 | Outpatient (AMB) | payer OTHER, SELFPAY ==
[2024-09-21 08:44] VITALS: BP 100/64; PULSE 92; O2SAT 96; BMI 23.9
--- NOTE | 2024-09-21 08:44 | MHC.OFFVIS ---
Vital Signs 09/21/24 08:44 Height 6 ft Weight 176 lb 5.917 oz BMI 23.9 BP 100/64 Blood Pressure Location Lt brachial Position Sitting Pulse 92 Pulse Source Pulse Oximeter Pulse Oximetry (%) 96 Oxygen Delivery Method Room Air Intake Visit Reasons: Pulmonary Nodule/CT Chest follow up Allergies No Known Allergies Allergy (Verified 09/21/24 08:46) HPI Comments Details: The patient is a 79-year-old gentleman presenting with abnormal CT scan of the chest. The patient was diagnosed with esophageal cancer during endoscopy was found to have an obstruction due to a masslike density. The patient was then referred to Oncology where he received chemo and also radiation. Now on immune therapy. The patient did not have surgery for the esophageal cancer. He still being followed by thoracic surgery. In the meantime he had a CT scan of the chest back in July 2023 which I personally reviewed demonstrating normal lung parenchyma. No evidence of any airspace disease. Patient ultimately had a repeat CT scan of the chest November 16 2023 which I also personally reviewed. Now it demonstrates what appears to be an airspace disease in the left lower lobe area. The area is very suspicious for an infectious process. He also has some mediastinal lymphadenopathy appreciated. In addition to that there was a 6 mm pulmonary nodule in the right lower lobe. The patient was treated with Augmentin and also doxycycline. The patient really was not symptomatic. Currently he feels well. Denies any chest pain or cough or shortness breath. We did talk about the findings in the importance of following up with a repeat CT scan to make sure that there is resolution of the airspace disease and also to make sure the nodular density is also followed. The patient is agreeable to having another CT scan in the next 6 weeks. If the patient has any worsening symptoms prior to that he will call for an earlier assessment. 06/15/2024 the patient is here for a pulmonary follow-up visit. The patient has been feeling well from a respiratory status. He did have a CT scan back in 03/23/2024 which I personally reviewed with him. Was concerning with new areas of consolidation and ground-glass nodular densities. The patient had did have a left lower lobe consolidation that had clear. We did recommend bronchoscopy but the patient opted not to have it. Also to note the lymphadenopathy has gotten a little bit worse on the CT scan. The patient continues on immune therapy. He understands the indeed these changes may indeed be related to the immune therapy as inflammatory reactions. He is willing to start Asmanex as an inhaled corticosteroid. I did tell him as small dose just to help him with his lungs and minimize any systemic manifestations. The patient will continue with his current immune therapy in the meantime. Will plan to continue on the inhaler for a couple months and plan to repeat the CT scan a couple months. If the patient develops any worsening symptoms prior to that he will call for an earlier on suctioning. 09/21/2024 the patient is here for a pulmonary follow-up visit. The patient overall has been doing okay. Denies any shortness of breath or cough or hemoptysis. He has continue the Keytruda infusions as per Oncology. He had a repeat CT scan of the chest because of the abnormal findings on his lost 1. The patient opted on not having any diagnostic interventions at that time. He was started on Asmanex because of the concerns of some degree of pneumonitis and consolidation. He also completed a course of antibiotics. Now we did review his repeat CT scan. Appears that the airspace disease significantly improved. Although the lymphadenopathy has worsened a little bit the patient now has significant amount of peripheral based nodular densities in hematogenous distribution concerning for metastatic disease. I explained to the patient my concerns. Good give him a copy of the results. The patient needs to have a diagnostic intervention to see if this is the same process, esophageal cancer or if is a different malignant process potentially. I did offer him a bronchoscopy with sampling of the lymph nodes in addition to the lungs with the patient would like to avoid anesthesia. The other option would be a CT-guided biopsy. The patient is willing to do this procedure. Therefore will go ahead and request a CT-guided lung biopsy of his right pulmonary nodule ALEJA. The patient will follow-up with oncology soon. He also may benefit from a PET scan. Also to note, on the CT scan there is a moderate-sized pericardial effusion. The patient denies any chest pains or dizziness. He knows that if his symptoms worsen or develops any concerning chest pains or shortness of breath or any other concerning symptoms he is to seek medical advice. In the meantime will request an urgent echocardiogram to address the pericardial effusion. [facility] Medical History (Updated 09/21/24 @ 09:16 by Dale Beach MD) Pulmonary nodules Lymphadenopathy, mediastinal Pneumonia Pulmonary nodule Esophageal cancer Hx of fracture of finger Hx of gout History of high cholesterol Hx of essential hypertension Surgical History (Updated 12/16/23 @ 12:26 by Dale Beach MD) History of nasal surgery History of tonsillectomy and adenoidectomy Hx of facial fracture repair Hx of shoulder surgery Hx of foot surgery Hx of colonoscopy Hx of arthroscopic knee surgery Social History Household Members: Spouse Housing: House Do you presently have visiting nurse or other home services: No Alcohol intake: current Alcohol intake frequency: holidays/special occasions only Alcohol type: beer Patient Tobacco Use Status: Never used Tobacco service: Yes Current occupational status: retired Review of Systems Const Denies fever(s) Eyes Reports as per HPI ENT Denies nasal congestion Card Denies chest pain Resp Denies cough and Denies wheezing GI Reports as per HPI Musc Reports no additional complaints Skin/Breast Denies rash Neuro Reports no additional complaints Aller/Immun Denies wheezing Physical Exam Vital Signs: Last Vital Signs Pulse 92 09/21/24 08:44 BP 100/64 09/21/24 08:44 Pulse Ox 96 09/21/24 08:44 Oxygen Delivery Method Room Air 09/21/24 08:44 BMI result Body Mass Index 23.9 Const General: comfortable HEENT Head: Yes normocephalic Neck Neck: Yes supple Chest Chest palpation & inspection: normal inspection of the chest Resp Effort & Inspection: normal respiratory effort Auscultation: no crackles and diminished lung sounds Cardio Heart sounds: S1 normal heart sound present and S2 normal heart sound present GI Palpation (GI): Soft to palpation Skin General skin exam: no rashes or lesions noted Extrem General: Yes no clubbing, cyanosis or edema Assessment & Plan Assessment & Plan (1) Pneumonia: Code(s): J18.9 - Pneumonia, unspecified organism Category: Medical Qualifiers: Laterality: left Lung location: lower lobe of lung Pneumonia type: due to unspecified organism Qualified Code(s): J18.9 - Pneumonia, unspecified organism (2) Pulmonary nodule: Code(s): R91.1 - Solitary pulmonary nodule Category: Medical (3) Esophageal cancer: Code(s): C15.9 - Malignant neoplasm of esophagus, unspecified Category: Surgical Qualifiers: Malignant neoplasm of esophagus location: unspecified location Qualified Code(s): C15.9 - Malignant neoplasm of esophagus, unspecified (4) Lymphadenopathy, mediastinal: Code(s): R59.0 - Localized enlarged lymph nodes Category: Medical (5) Pulmonary nodules: Code(s): R91.8 - Other nonspecific abnormal finding of lung field Category: Medical (6) Pericardial effusion: Code(s): I31.39 - Other pericardial effusion (noninflammatory) Category: Medical Plan Asmanex HFA urgent ECHO urgent CT guided right sided lung biopsy f/U with Oncology F/U 6-8 weeks Orders: Orders CT biopsy lung RT Today C15.9 - Malignant neoplasm of esophagus, unspecified, R91.8 - Other nonspecific abnormal finding of lung field CA echo transthoracic complete Today I31.39 - Other pericardial effusion (noninflammatory) Coding Level of Care Code Est Pt Level 5 (57023) Complex EM visit Add On G2211 Diagnoses Pneumonia of left lower lobe due to infectious organism J18.9 Laterality: left Lung location: lower lobe of lung Pneumonia type: due to unspecified organism Pulmonary nodule R91.1 Malignant neoplasm of esophagus, unspecified location C15.9 Malignant neoplasm of esophagus location: unspecified location Lymphadenopathy, mediastinal R59.0 Pulmonary nodules R91.8 Pericardial effusion I31.39 Time Spent (min) 45
--- OUTSIDE RECORDS SUMMARY | 2024-09-21 08:57 | XMS_ITS ---
Author Name [facility] [place] [facility] [place] [facility] [place] Address [address] [place] [address] Care Team Providers Care Questioned Documents Examiner Name Role Phone OLIVA PEGUERO Primary Care [...] Relationship to Policy Root [facility]ER [facility] [employer] GE Apr 03, 2009 [id number] BLANCHEFRANCIS HERNANDEZ SPOUSE BCBS [facility] BLUE* Apr 03, 2009 [id number] BLANCHE, JANET SPOUSE BCBS [facility] [employer] GE Apr 03, 2009 [id number] FRANCIS MANCIA SPOUSE [employer] ([id number]) PRESCRIPT ION L4TA* Apr 03, 2009 [id number] [id number] FRANCIS MANCIA [employer] ([id number]) PRESCRIPT ION L4TA* Apr 03, 2009 L4TA [id number] FRANCIS MANCIA [employer] ([id number]) PRESCRIPT ION Apr 03, 2009 L4TA [id number] [phone] FRANCIS MANCIA SPOUSE MEDICARE (WNR) MEDICARE (M) PART B Jun 04, 2020 PART B [id number] RAÚL MANCIA PATIENT MEDICARE (WNR) MEDICARE (M) PART A Oct 04, 2006 PART A [id number] RAÚL MANCIA PATIENT MEDICARE (WNR) MEDICARE (M) PART A Oct 04, 2006 PART A [id number] [phone] RAÚL MANCIA PATIENT Selected Encounter This section includes the information on record at [place] for the Encounter. Date/Time Encounter Type Encounter Description Reason Provider Source Oct 08, 2023 03:30 PM OFFICE O/P EST SF 10 MIN PRIMARY CARE/MEDICINE ICD-10-CM C15.9 Malignant neoplasm of esophagus, unspecified OLIVA PEGUERO [facility] Encounter Template Text not used by [place] Assessments - Encounter Diagnoses This section includes the primary and secondary diagnoses documented for the Encounter. Date/Time Primary/Secondary Diagnosis Diagnosis Name Provider Source Oct 08, 2023 04:02 PM PRIMARY Malignant neoplasm of esophagus, unspecified [facility] [place] [facility] Oct 08, 2023 04:02 PM SECONDARY Encounter for immunization [facility] [place] [facility] Plan of Treatment: Future Appointments (+ [...] 16, 2023 11:00 AM AMBULATORY - [facility]ICINE [facility] [place] [facility] Jan 11, 2024 10:00 AM AM[facility]ORY [facility]IC[facility] [place] [facility] Jan 17, 2024 07:30 AM AMBULATORY - MEDICINE [facility] Active, Pending, and Scheduled Orders This [...] Chemistry Order URINALYSIS CLEAN CATCH URINE SP [facility] Lab Results: +/- 30 days of the encounter This section includes the Chemistry and Hematology Lab Results on record with [place] for the patient. Radiology Reports and Pathology Reports are provided separately, in subsequent sections. Lab Results This section contains the Chemistry/Hematology Results that were resulted 30 days before or 30 daysafter the date of the Encounter. Date/Time Source Result Type Result - Unit Interpretation Reference Range Comment Oct 01, 2023 07:31 AM [facility] URIC ACID Specimen Type: SERUM No comment entered. Ordering Provider: OLIVA PEGUERO Report Released Date/Time: Sep 26, 2023 06:56 PM Reporting Lab: [address] [address] Performing Lab: [address] [address] URIC ACID 5.6 mg/dL 3.5-7.2 Oct 01, 2023 07:31 AM [facility] LIVER FUNCTION Specimen Type: SERUM No comment entered. Ordering Provider: OLIVA PEGUERO Report Released Date/Time: Sep 26, 2023 06:56 PM Reporting Lab: [address] [address] Performing Lab: [address] [address] PROTEIN,TOTAL 6.4 g/dL 6.0-8.3 ALBUMIN 3.7 g/dL 3.5-5.0 ALKALINE PHOSPHATASE 130 U/L 40-150 AST 16 U/L 5-34 ALT 12 U/L BILIRUBIN, TOTAL 0.4 mg/dL 0.2-1.2 Oct 01, 2023 07:31 AM [facility] BASIC METABOLIC PANEL (fasting) Specimen Type: SERUM No comment entered. Ordering Provider: OLIVA PEGUERO Report Released Date/Time: Sep 26, 2023 06:56 PM Reporting Lab: [address] [address] Performing Lab: [address] [address] UREA NITROGEN 25 mg/dL 7-25 GLUCOSE 105 mg/dL H 65-100 SODIUM 139 mmol/L 135-145 POTASSIUM 4.3 mmol/L 3.5-5.0 CHLORIDE 106 mmol/L 100-110 CO2 23 meq/L 20-30 CREATININE, Serum 0.85 mg/dL 0.50-1.40 eGFR(CKD-EPI 2020) 89 mL/min >60 Oct 01, 2023 07:31 AM [facility] TSH Specimen Type: SERUM No comment entered. Ordering Provider: OLIVA PEGUERO Report Released Date/Time: Sep 26, 2023 06:56 PM Reporting Lab: [address] [address] Performing Lab: [address] [address] TSH 1.01 u[IU]/mL 0.35-5.00 Oct 01, 2023 07:31 AM [facility] LIPID PANEL FASTING Specimen Type: SERUM No comment entered. Ordering Provider: OLIVA PEGUERO Report Released Date/Time: Sep 26, 2023 06:56 PM Reporting Lab: [address] [address] Performing Lab: [address] [address] CHOLESTEROL 183 mg/dL TRIGLYCERIDE 104 mg/dL 0-150 LDL calculated 114 mg/dL 0-129 CHOL/HDL 3.8 HDL CHOLESTEROL 48 mg/dL 40-60 Oct 01, 2023 07:31 AM [facility] CBC AND DIFF (AUTO) Specimen Type: BLOOD No comment entered. Ordering Provider: OLIVA PEGUERO Report Released Date/Time: Sep 26, 2023 06:56 PM Reporting Lab: [facility] [address] [facility] [address] Performing Lab: [facility] [address] [facility] [address] WBC 6.28 10*3/uL 4.50-11.00 RBC 4.75 10*6/uL 4.23-5.66 HGB 12.0 g/dL L 12.8-17 HCT 38.4 L 39.2-50.4 MCV 80.8 fL L 82-99 MCHC 31.3 g/dL 30.8-35.1 PLT 190 10*3/uL 140-360 RDW-CV 15.2 12.0-16.0 [place], Abs 0.56 10*3/uL 0.30-1.10 MCH 25.3 pg L 26.2-32.6 Neut % 73.1 43.7-75.8 Lymph % 13.5 L 14.0-42.3 [place] % 8.9 5.1-13.7 Eos % 3.7 0.4-6.8 [...] /min 99 % 0 189 lb 26 [facility] Immunizations: All administered on the encounter [...] AM VA-TOBACCO NEVER USED [place] [facility] [place] [facility] Tobacco Use History This section includes a history of the smoking, or tobacco-related health factors, that were collected on or before the date of the Encounter. The data comes from the [place] facility where the Encounter took place. Date/Time Smoking Status/Tobacco Use Comment F acility Jan 06, 2022 09:00 AM VA-TOBACCO NEVER USED [facility] [place] [facility] Dec 31, 2020 08:00 AM VA-TOBACCO NEVER USED [facility] [place] [facility] Dec 27, 2019 09:48 AM VA-TOBACCO NEVER USED [facility] [place] [facility] Jun 30, 2018 08:41 AM VA-TOBACCO NEVER USED [facility] [place] [facility] Dec 23, 2017 07:46 AM LIFETIME NON-TOBACCO USER [facility] [place] [facility] Dec 22, 2016 08:06 AM LIFETIME NON-TOBACCO USER [facility] [place] [facility] Dec 24, 2015 08:36 AM LIFETIME NON-TOBACCO USER [facility] [place] [facility] Jun 19, 2004 01:52 PM LIFETIME NON-SMOKER [facility] [place] [facility] Jun 19, 2004 01:52 PM LIFETIME NON-TOBACCO USER [facility] [place] [facility] Jun 19, 2004 01:34 PM LIFETIME NON-SMOKER [facility] [place] [facility] Jun 19, 2004 01:34 PM LIFETIME NON-TOBACCO USER [facility] [place] [facility] Advance Directives: All historical and current [...] 20, 2006 ADVANCE DIRECTIVE MARINA FAJARDO [place] [facility] [place] [facility] Encounter Notes: All associated encounter notes [...] SLEEPING 3) FEED BAG W/GRAVTY SET ENFIT COVID#[id number] USE 1 ACTIVE GRAVITY BAG TOPICALLY ONCE DAILY FOR NUTRITION 4) GAUZE PAD 4IN X 4IN NONSTERILE APPLY GAUZE(S) ACTIVE TOPICALLY ONCE DAILY 5) GUAIFENESIN 600MG SA TAB TAKE ONE TABLET BY MOUTH ACTIVE TWICE DAILY NEEDED FOR COUGH FOLLOW DOSE WITH FULL GLASS OF WATER 6) IRRIGATION KIT W/PISTON SYRINGE K#[id number] USE 1 ACTIVE IRRIGATION KIT DIRECTED EVERY [...] FLUSHING ENFIT CONNECTOR 11) VALVE,AMAIRANI ENTERAL,ICU MEDICAL #[id number] USE 1 VALVE ACTIVE ONCE A WEEK Remote Medications: No Active 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 Lot: [id number] Exp Date: February 17, 2024 [facility]: [phone] Admin Route/Site: INTRAMUSCULAR/LEFT DELTOID Dosage: 0.5mL Vaccine Information Statement(s): COVID-19 MRNA VACCINE (12+ YRS) VACCINE VIS Jul 22, 2023 (QATARI) Order By: Policy Administered By: Fab [place] Vaccine administered without complications. The patient was advised to remain in the facility for 15 minutes post vaccination. /delores/ [facility] [place] LPN License Practical Nurse Signed: 10/08/2023 15:34 [facility] [address] [facility]
--- OUTSIDE RECORDS SUMMARY | 2024-09-21 08:57 | XMS_ITS | Continuity of Care Document ---
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 It does not include entries that were removed or entered in error. Problem Status Onset Date Problem Type Date of Resolution Comments Source Anemia (SCT [id number]) Active 10/04/19 23 Condition Jan 27, 2023 Entered By: OLIVA PÉERZ Comment: labs ordered to evaluate [facility] Malignant neoplasm of esophagus Active 10/04/19 23 Condition Apr 23, 2023 Entered By: OLIVA PÉREZ Comment: Treated with radiation and chemotherapy [facility] Weight loss Active 10/04/19 23 Condition Jan 27, 2023 Entered By: OLIAV PÉREZ Comment: ordered CT scans [facility] [...] neoplasm of esophagus, unspecified Active Diagnosis [facility] [place] [place] [facility] Diagnosis: ICD-10-CM Z46.0 Encounter for fit/adjst of spectacles and contact lenses Active Diagnosis [facility] [place] [facility] Diagnosis: ICD-10-CM H25.813 Combined forms of age-related cataract, bilateral Active Diagnosis [facility] Diagnosis: ICD-10-CM R73.01 Impaired fasting glucose Active Diagnosis [facility] Diagnosis: ICD-10-CM Z23 Encounter for immunization Active Diagnosis [facility] Diagnosis: ICD-10-CM R63.4 Abnormal weight loss Active Diagnosis [facility] ([id number] Diagnosis: ICD-10-CM Z71.3 Dietary counseling and surveillance Active Diagnosis [facility] Medications Combined list of outpatient medications from Department of Defense and Veterans Affairs facilities.Medications provided include 1) outpatient medications from the last 15 months, and 2) patient-reported medications. Medication Details Route Status Patient Instructions Prescription Expires Prescription Number Last Dispense Date Ordering Provider Order Date Order Qty Source ALLOPURINOL 100MG TAB TAKE TWO TABLETS BY MOUTH EVERY DAY FOR GOUT ORAL ACTIVE 10/08/2024 [id number] NAPOLEON PÉREZ 2023 180 [facility] ALLOPURINOL 100MG TAB TAKE TWO TABLETS BY MOUTH EVERY DAY FOR GOUT ORAL DISCONT INUED 12/31/2023 [id number] 3 NAPOLEON PÉREZ 2022 180 [facility] METOPROLOL TARTRATE 25MG TAB TAKE ONE-HALF TABLET BY MOUTH TWICE DAILY FOR BLOOD PRESSURE /HEART ORAL DISCONT INUED BY PROVIDE R 10/08/2024 [id number] 4 NAPOLEON PÉREZ [address] [facility] METOPROLOL TARTRATE 25MG TAB TAKE ONE-HALF TABLET BY MOUTH TWICE DAILY FOR BLOOD PRESSURE /HEART ORAL DISCONT INUED 01/01/2024 [id number] NAPOLEON PÉREZ NEIL D 2022 90 [facility] [place] [facility] MOMETASONE FUROATE 100MCG/ACTU AT INHL,ORAL,1 20D,13GM INHALE 1 INHALATI ON BY MOUTH TWICE DAILY RESPIR ATORY (INHAL ATION) ACTIVE 06/16/2025 [id number] ADITYA HARRIS 2023 1 [facility] OSMOLITE 1.2 RITESH LIQUID DRINK 1 CAN VIA G-TUBE 9 TIMES A DAY FOR NUTRITIO NAL SUPPLEME NTATION ORAL 04/15/2024 [id number] NAPOLEON PÉREZ NEIL D 2022 264 [facility] RSV VACCINE INJ,LYPHL,S YR,KIT INJECT 0.5ML INTRAMUS CULARLY ONE TIME INTRAM USCULA R 07/27/2023 [id number] NAPOLEON PÉREZ D 2022 1 [facility] SIMVASTATIN 80MG TAB TAKE ONE-HALF TABLET BY MOUTH AT BEDTIME FOR CHOLESTE ROL ORAL SUSPEND ED 08/17/2025 [id number] 5 NAPOLEON PÉREZ D 2024 45 [facility] SIMVASTATIN 80MG TAB TAKE ONE-HALF TABLET BY MOUTH AT BEDTIME FOR CHOLESTE ROL ORAL DISCONT INUED 10/08/2024 [id number] 4 NAPOLEON PÉREZ D 2023 45 [facility] SIMVASTATIN 80MG TAB TAKE ONE-HALF TABLET BY MOUTH AT BEDTIME FOR CHOLESTE ROL ORAL DISCONT INUED 01/01/2024 [id number] NAPOLEON PÉREZ D 2022 45 [facility] Immunizations Combined list of available immunizations from the Department of Defense and Veterans Affairs facilities. 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 Source COVID-19 (MODERNA), MRNA, LNP-S, PF, 50 MCG/0.5 ML (AGES 12+ YEARS) 6 2023 [employer] [place] LEFT DELTO ID [id number] 312 complet ed [facility] [facility] RSV, BIVALENT, PROTEIN SUBUNIT RSVPREF, DILUENT RECONSTITUTED , 0.5 ML, PF 2022 [place] LEFT DELTO ID [id number] 305 complet ed [facility] [place] [facility] INFLUENZA, HIGH-DOSE, QUADRIVALENT 2022 JULIA MEDINA Phill LEFT DELTO ID [id number] 197 complet ed [facility] [place] [facility] COVID-19 (MODERNA), MRNA, LNP-S, BIVALENT BOOSTER, PF, 50 MCG/0.5 ML OR 25MCG/0.25 ML DOSE 1 2021 229 complet ed MOD; [id number]; 3 [facility] [place] [facility] [facility] INFLUENZA VACCINE, QUADRIVALENT, ADJUVANTED 2021 205 complet ed [facility] COVID-19 (MODERNA), MRNA, LNP-S, PF, 100 MCG/0.5ML DOSE OR 50 MCG/0.25ML DOSE 4 2021 207 complet ed MOD; [id number]; 2 [facility] COVID-19 (MODERNA), MRNA, LNP-S, PF, 100 MCG/0.5ML DOSE OR 50 MCG/0.25ML DOSE 3 2020 207 complet ed [facility] INFLUENZA VACCINE, QUADRIVALENT, ADJUVANTED 2020 205 complet [...] Reference Range Date Interpretation Specimen Comments Source TSH THYROTROPI N [UNITS/VOL UME] IN SERUM OR PLASMA 3.73 u[IU]/mL 0.35 - 5.00 05/24 Specimen Type: SERUM No comment entered. Ordering Provider: FLAQUITO PÉREZ Report Released Date/Time: May 06, 2024 05:41 PM Reporting Lab: [facility] [address] [facility] [address] Performing Lab: [place] [facility] [address] [facility] [address] [place] [facility] LIVER FUNCTION PROTEIN [MASS/VOLU ME] IN SERUM OR PLASMA 7.1 g/dL 6.0 - 8.3 05/24 Specimen Type: SERUM No comment entered. Ordering Provider: FLAQUITO PÉREZ Report Released Date/Time: May 06, 2024 05:41 PM Reporting Lab: [facility] [address] [facility] [address] Performing Lab: [facility] [place] [facility] [address] [facility] [address] [facility] [place] [facility] LIVER FUNCTION ALBUMIN [MASS/VOLU ME] IN SERUM OR PLASMA 3.5 g/dL 3.5 - 5.0 05/24 Specimen Type: SERUM No comment entered. Ordering Provider: FLAQUITO PÉREZ Report Released Date/Time: May 06, 2024 05:41 PM Reporting Lab: [facility] [place] [facility] [address] [facility] [address] Performing Lab: [place] [facility] [facility] [address] [facility] [address] [facility] [facility] LIVER FUNCTION ALKALINE PHOSPHATAS E [ENZYMATIC ACTIVITY/V OLUME] IN SERUM OR PLASMA 233 U/L 40 - 150 05/24 H Specimen Type: SERUM No comment entered. Ordering Provider: FLAQUITO PÉREZ Report Released Date/Time: May 06, 2024 05:41 PM Reporting Lab: [facility] [place] [facility] [address] [facility] [address] Performing Lab: [facility] [place] [facility] [address] [facility] [address] [place] [facility] LIVER FUNCTION ASPARTATE AMINOTRANS FERASE [ENZYMATIC ACTIVITY/V OLUME] IN SERUM OR PLASMA 21 U/L 5 - 34 05/24 Specimen Type: SERUM No comment entered. Ordering Provider: FLAQUITO PÉREZ Report Released Date/Time: May 06, 2024 05:41 PM Reporting Lab: [facility] [place] [facility] [address] [facility] [address] Performing Lab: [facility] [place] [facility] [address] [facility] [address] [place] [facility] [facility] LIVER FUNCTION ALANINE AMINOTRANS FERASE [ENZYMATIC ACTIVITY/V OLUME] IN SERUM OR PLASMA 16 U/L 05/24 Specimen Type: SERUM No comment entered. Ordering Provider: FLAQUITO PÉREZ Report Released Date/Time: May 06, 2024 05:41 PM Reporting Lab: [place] [facility] [place] [facility] [address] [facility] [address] Performing Lab: [place] [facility] [facility] [address] [facility] [address] [place] [facility] [facility] LIVER FUNCTION BILIRUBIN. TOTAL [MASS/VOLU ME] IN SERUM OR PLASMA 0.4 mg/dL 0.2 - 1.2 05/24 Specimen Type: SERUM No comment entered. Ordering Provider: FLAQUITO PÉREZ Report Released Date/Time: May 06, 2024 05:41 PM Reporting Lab: [facility] [address] [facility] [address] Performing Lab: [place] [address] [address] [facility]RNOL[facility] ANNISTONTRN [facility] HOSPITALUSE [facility] BASIC METABOLI C PANEL (fasting ) UREA NITROGEN [MASS/VOLU ME] IN SERUM OR PLASMA 23 mg/dL 7 - 25 05/24 Specimen Type: SERUM No comment entered. Ordering Provider: FLAQUITO PÉREZ Report Released Date/Time: May 06, 2024 05:41 PM Reporting Lab: [facility]ITAL[facility] [address] [facility] [address] Performing Lab: [place] [facility] [facility] [facility]ITAL[facility] [address] [facility] [address] [facility]ITALRNOL[facility] ANNISTONTRN [facility]OS[facility]ITALUSE [facility] BASIC METABOLI C PANEL (fasting ) GLUCOSE [MASS/VOLU ME] IN SERUM OR PLASMA 109 mg/dL 65 - 100 05/24 H Specimen Type: SERUM No comment entered. Ordering Provider: FLAQUITO PÉREZ Report Released Date/Time: May 06, 2024 05:41 PM Reporting Lab: [facility] [place] [facility] [address] [facility] [address] Performing Lab: [place] [facility] [facility] [address] [facility] [address] [facility] [place] [facility] BASIC METABOLI C PANEL (fasting ) SODIUM [MOLES/VOL UME] IN SERUM OR PLASMA 137 mmol/L 135 - 145 05/24 Specimen Type: SERUM No comment entered. Ordering Provider: FLAQUITO PÉREZ Report Released Date/Time: May 06, 2024 05:41 PM Reporting Lab: [facility] [place] [facility] [address] [facility] [address] Performing Lab: [facility] [place] [facility] [address] [facility] [address] [place] [facility] [facility] BASIC METABOLI C PANEL (fasting ) POTASSIUM [MOLES/VOL UME] IN SERUM OR PLASMA 4.3 mmol/L 3.5 - 5.0 05/24 Specimen Type: SERUM No comment entered. Ordering Provider: FLAQUITO PÉREZ Report Released Date/Time: May 06, 2024 05:41 PM Reporting Lab: [place] [facility] [place] [facility] [address] [facility] [address] Performing Lab: [place] [facility] [address] [address] [place] [facility] [facility] BASIC METABOLI C PANEL (fasting ) CHLORIDE [MOLES/VOL UME] IN SERUM OR PLASMA 103 mmol/L 100 - 110 05/24 Specimen Type: SERUM No comment entered. Ordering Provider: FLAQUITO PÉREZ Report Released Date/Time: May 06, 2024 05:41 PM Reporting Lab: [place] [facility] [place] [facility] [address] [facility] [address] Performing Lab: [place] [facility] [place] [address] [address] [place] [facility] [facility] BASIC METABOLI C PANEL (fasting ) CARBON DIOXIDE, TOTAL [MOLES/VOL UME] IN SERUM OR PLASMA 23 meq/L 20 - 30 05/24 Specimen Type: SERUM No comment entered. Ordering Provider: FLAQUITO PÉREZ Report Released Date/Time: May 06, 2024 05:41 PM Reporting Lab: [facility] [place] [facility] [address] [facility] [address] Performing Lab: [place] [facility] [place] [address] [address] [place] [facility] [place] [facility] BASIC METABOLI C PANEL (fasting ) CREATININE [MASS/VOLU ME] IN SERUM OR PLASMA 0.83 mg/dL 0.50 - 1.40 05/24 Specimen Type: SERUM No comment entered. Ordering Provider: FLAQUITO PÉREZ Report Released Date/Time: May 06, 2024 05:41 PM Reporting Lab: [facility]PITALRDCH [facility]ERN [facility] [address] [facility] [address] Performing Lab: [facility]ITALRL TRN [facility]ITALUSEMONTEFIORE [facility] [address] [facility] [address] [facility] [facility]OS[facility]ITALUSE [facility] BASIC METABOLI C PANEL (fasting ) GLOMERULAR FILTRATION RATE/1.73 SQ M.PREDICTE D [VOLUME RATE/AREA] IN SERUM, PLASMA OR BLOOD BY CREATININE -BASED FORMULA (CKD-EPI 2020) 90 mL/min 60 05/24 Specimen Type: SERUM No comment entered. Ordering Provider: FLAQUITO PÉREZ Report Released Date/Time: May 06, 2024 05:41 PM Reporting Lab: [facility]ITALRDCH [facility]ERN [facility] [address] [facility] [address] Performing Lab: [facility]ITALRDCH [facility] CENTERN [address] [address] [facility] URIC ACID URATE [MASS/VOLU ME] IN SERUM OR PLASMA 4.6 mg/dL 3.5 - 7.2 05/24 Specimen Type: SERUM No comment entered. Ordering Provider: FLAQUITO PÉREZ Report Released Date/Time: May 06, 2024 05:41 PM Reporting Lab: [facility]RL [facility]N [facility]ITALUSE[facility]FI[facility] [address] [facility] [address] Performing Lab: [facility]PITALRDCH [facility]ERN [facility]OSPITALUSE[address] [address] [facility] LIPID PANEL FASTING CHOLESTERO L [MASS/VOLU ME] IN SERUM OR PLASMA 183 mg/dL 05/24 Specimen Type: SERUM No comment entered. Ordering Provider: FLAQUITO PÉREZ Report Released Date/Time: May 06, 2024 05:41 PM Reporting Lab: [facility] [place] [facility] [address] [facility] [address] Performing Lab: [facility] [place] [facility] [address] [facility] [address] [facility] [place] [facility] LIPID PANEL FASTING TRIGLYCERI DE [MASS/VOLU ME] IN SERUM OR PLASMA 115 mg/dL 0 - 150 05/24 Specimen Type: SERUM No comment entered. Ordering Provider: FLAQUITO PÉREZ Report Released Date/Time: May 06, 2024 05:41 PM Reporting Lab: [facility] [place] [place] [facility] [address] [facility] [address] Performing Lab: [place] [facility] [facility] [address] [facility] [address] [facility] [place] [facility] LIPID PANEL FASTING CHOLESTERO L IN LDL [MASS/VOLU ME] IN SERUM OR PLASMA BY CALCULATIO N 120 mg/dL 0 - 129 05/24 Specimen Type: SERUM No comment entered. Ordering Provider: FLAQUITO PÉREZ Report Released Date/Time: May 06, 2024 05:41 PM Reporting Lab: [facility] [place] [place] [facility] [address] [facility] [address] Performing Lab: [place] [facility] [facility] [address] [facility] [address] [facility]RL WSTRN [facility] LIPID PANEL FASTING CHOLESTERO L.TOTAL/CH OLESTEROL IN HDL [MASS RATIO] IN SERUM OR PLASMA 4.6 05/24 Specimen Type: SERUM No comment entered. Ordering Provider: FLAQUITO PÉREZ Report Released Date/Time: May 06, 2024 05:41 PM Reporting Lab: [facility] [place] [place] [facility] [address] [facility] [address] Performing Lab: [place] [facility] [place] [facility] [address] [facility] [address] [facility]ITALRL [facility]N [facility] LIPID PANEL FASTING CHOLESTERO L IN HDL [MASS/VOLU ME] IN SERUM OR PLASMA 40 mg/dL 40 - 60 05/24 Specimen Type: SERUM No comment entered. Ordering Provider: FLAQUITO PÉREZ Report Released Date/Time: May 06, 2024 05:41 PM Reporting Lab: [facility] [address] [facility] [address] Performing Lab: [facility] [facility] [address] [facility] [address] [place] [facility] [facility] [place] [facility] URINALYS IS CLEAN CATCH COLOR OF URINE Light-Ye llow 05/24 Specimen Type: URINE Comment: If Glucose = >500 and Ketones are positive, please alert the Physician. Ordering Provider: FLAQUITO PÉREZ Report Released Date/Time: May 06, 2024 05:41 PM Reporting Lab: [place] [facility] [place] [facility] [address] [facility] [address] Performing Lab: [place] [facility] [place] [facility] [address] [facility] [address] [place] [facility] [place] [facility] URINALYS IS CLEAN CATCH APPEARANCE OF URINE Clear 05/24 Specimen Type: URINE Comment: If Glucose = >500 and Ketones are positive, please alert the Physician. Ordering Provider: FLAQUITO PÉREZ Report Released Date/Time: May 06, 2024 05:41 PM Reporting Lab: [place] [facility] [place] [facility] [address] [facility] [address] Performing Lab: [facility] [place] [facility] [address] [facility] [address] [place] [facility] [facility] [place] [facility] URINALYS IS CLEAN CATCH GLUCOSE [MASS/VOLU ME] IN URINE Normalmg /dL 05/24 Specimen Type: URINE Comment: If Glucose = >500 and Ketones are positive, please alert the Physician. Ordering Provider: FLAQUITO PÉREZ Report Released Date/Time: May 06, 2024 05:41 PM Reporting Lab: [facility] [place] [facility] [address] [facility] [address] Performing Lab: [facility] [place] [facility] [address] [facility] [address] [facility] [place] [facility] URINALYS IS CLEAN CATCH KETONES [MASS/VOLU ME] IN URINE BY TEST STRIP NEGATIVE mg/dL 05/24 Specimen Type: URINE Comment: If Glucose = >500 and Ketones are positive, please alert the Physician. Ordering Provider: FLAQUITO PÉREZ Report Released Date/Time: May 06, 2024 05:41 PM Reporting Lab: [facility]PITALRNOL[facility] ANNISTONTRN [facility] HOSPITALUSETS [facility] [address] [facility] [address] Performing Lab: [facility]PITALRNOLAND [facility] ANNISTONTRN [facility]OSPITALUSE[address] [address] [facility]ITALRNOLAND HOSP[facility] ANNISTONTRN [facility]USE [facility] URINALYS IS CLEAN CATCH ERYTHROCYT ES [PRESENCE] IN URINE SEDIMENT BY LIGHT MICROSCOPY NEGATIVE mg/dL 05/24 Specimen Type: URINE Comment: If Glucose = >500 and Ketones are positive, please alert the Physician. Ordering Provider: FLAQUITO PÉREZ Report Released Date/Time: May 06, 2024 05:41 PM Reporting Lab: [facility]ERN [facility]OSPITALUSE[address] [address] Performing Lab: [facility]ITALRNOL[facility] ANNISTONTRN [facility]ITALUSE[address] [address] [facility]OSPITALRDCH [facility]ENTERN [facility] URINALYS IS CLEAN CATCH PROTEIN [MASS/VOLU ME] IN URINE BY TEST STRIP NEGATIVE mg/dL 05/24 Specimen Type: URINE Comment: If Glucose = >500 and Ketones are positive, please alert the Physician. Ordering Provider: FLAQUITO PÉREZ Report Released Date/Time: May 06, 2024 05:41 PM Reporting Lab: [facility]PITALRNOLAND [facility]OSP[facility] ANNISTONTRN [place] [address] [address] Performing Lab: [facility]ITALRL TRN [facility] HOSPITALUSETS [facility] [address] [facility] [address] [facility]ITALRNOLAND HOSPITAL ANNISTONTRN [place] TS [facility] URINALYS IS CLEAN CATCH NITRITE [PRESENCE] IN URINE NEGATIVE mg/dL 05/24 Specimen Type: URINE Comment: If Glucose = >500 and Ketones are positive, please alert the Physician. Ordering Provider: FLAQUITO PÉREZ Report Released Date/Time: May 06, 2024 05:41 PM Reporting Lab: [facility]ITALRNOLAND [facility] ANNISTONTRN [place] [address] [address] Performing Lab: [facility]PITALRL [facility] [place] [facility] [address] [facility] [address] [facility] [address] [facility] HOSPITALUSE [facility] URINALYS IS CLEAN CATCH BILIRUBIN. TOTAL [PRESENCE] IN URINE NEGATIVE mg/dL 05/24 Specimen Type: URINE Comment: If Glucose = >500 and Ketones are positive, please alert the Physician. Ordering Provider: FLAQUITO PÉREZ Report Released Date/Time: May 06, 2024 05:41 PM Reporting Lab: [facility]PITALRDCH [facility]ERN [facility]OSPITALUSEMONTEFI[facility] [address] [facility] [address] Performing Lab: [facility]OSPITALUSEMONTEFIORE [facility] [address] [facility] [address] [facility] [facility] HOSPITALUSE [facility] URINALYS IS CLEAN CATCH SPECIFIC GRAVITY OF URINE BY REFRACTOME TRY 1.020 1.016 - 1.022 05/24 Specimen Type: URINE Comment: If Glucose = >500 and Ketones are positive, please alert the Physician. Ordering Provider: FLAQUITO PÉREZ Report Released Date/Time: May 06, 2024 05:41 PM Reporting Lab: [facility]ERN [facility]OSPITALUSEMONTEFI[facility] [address] [facility] [address] Performing Lab: [facility]OSPITALUSEMONTEFIORE [facility] [address] [facility] [address] [facility] URINALYS IS CLEAN CATCH PH OF URINE BY TEST STRIP 5.5 5.0 - 9.0 05/24 Specimen Type: URINE Comment: If Glucose = >500 and Ketones are positive, please alert the Physician. Ordering Provider: FLAQUITO PÉREZ Report Released Date/Time: May 06, 2024 05:41 PM Reporting Lab: [facility] [address] [facility] [address] Performing Lab: [facility] [address] [facility] [address] [facility] [address] [facility] URINALYS IS CLEAN CATCH UROBILINOG EN [MASS/VOLU ME] IN URINE BY TEST STRIP Normalmg /dL <2.0 - 2.0 05/24 Specimen Type: URINE Comment: If Glucose = >500 and Ketones are positive, please alert the Physician. Ordering Provider: FLAQUITO PÉREZ Report Released Date/Time: May 06, 2024 05:41 PM Reporting Lab: [place] [facility] [place] [facility] [address] [facility] [address] Performing Lab: [place] [facility] [place] [facility] [address] [facility] [address] [place] [facility] [place] [facility] URINALYS IS CLEAN CATCH LEUKOCYTE ESTERASE [PRESENCE] IN URINE BY TEST STRIP NEGATIVE 05/24 Specimen Type: URINE Comment: If Glucose = >500 and Ketones are positive, please alert the Physician. Ordering Provider: FLAQUITO PÉREZ Report Released Date/Time: May 06, 2024 05:41 PM Reporting Lab: [facility] [place] [facility] [address] [facility] [address] Performing Lab: [facility] [facility] [address] [facility] [address] [place] [facility] [place] [facility] CBC AND DIFF (AUTO) LEUKOCYTES [#/VOLUME] IN BLOOD BY AUTOMATED COUNT 8.44 10*3/uL 4.50 - 11.00 05/24 Specimen Type: BLOOD No comment entered. Ordering Provider: FLAQUITO PÉREZ Report Released Date/Time: May 06, 2024 05:41 PM Reporting Lab: [facility] [place] [facility] [address] [facility] [address] Performing Lab: [facility] [place] [facility] [address] [facility] [address] [place] [facility] [facility] CBC AND DIFF (AUTO) ERYTHROCYT ES [#/VOLUME] IN BLOOD BY AUTOMATED COUNT 5.28 10*6/uL 4.23 - 5.66 05/24 Specimen Type: BLOOD No comment entered. Ordering Provider: FLAQUITO PÉREZ Report Released Date/Time: May 06, 2024 05:41 PM Reporting Lab: [facility] [facility] [address] [facility] [address] Performing Lab: [place] [facility] [address] [address] [place] [facility] [facility] CBC AND DIFF (AUTO) HEMOGLOBIN [MASS/VOLU ME] IN BLOOD 13.2 g/dL 12.8 - 17 05/24 Specimen Type: BLOOD No comment entered. Ordering Provider: FLAQUITO PÉREZ Report Released Date/Time: May 06, 2024 05:41 PM Reporting Lab: [facility] [facility] [address] [facility] [address] Performing Lab: [place] [facility] [place] [facility] [address] [facility] [address] [place] [facility] [place] [facility] CBC AND DIFF (AUTO) HEMATOCRIT [VOLUME FRACTION] OF BLOOD BY AUTOMATED COUNT 41.0 39.2 - 50.4 05/24 Specimen Type: BLOOD No comment entered. Ordering Provider: FLAQUITO PÉREZ Report Released Date/Time: May 06, 2024 05:41 PM Reporting [facility]: [facility] [place] [address] [address] Performing Lab: [place] [facility] [place] [facility] [address] [facility] [address] [facility] [place] [facility] CBC AND DIFF (AUTO) MCV [ENTITIC VOLUME] BY AUTOMATED COUNT 77.7 fL 82 - 99 05/24 L Specimen Type: BLOOD No comment entered. Ordering Provider: FLAQUITO PÉREZ Report Released Date/Time: May 06, 2024 05:41 PM Reporting Lab: [facility] [place] [facility] [address] [facility] [address] Performing Lab: [place] [facility] [place] [facility] [address] [facility] [address] [place] [facility] [place] [facility] CBC AND DIFF (AUTO) MCHC [MASS/VOLU ME] BY AUTOMATED COUNT 32.2 g/dL 30.8 - 35.1 05/24 Specimen Type: BLOOD No comment entered. Ordering Provider: FLAQUITO PÉREZ Report Released Date/Time: May 06, 2024 05:41 PM Reporting Lab: [place] [facility] [place] [facility] [address] [facility] [address] Performing Lab: [facility] [place] [facility] [address] [facility] [address] [place] [facility] [facility] CBC AND DIFF (AUTO) PLATELETS [#/VOLUME] IN BLOOD BY AUTOMATED COUNT 255 10*3/uL 140 - 360 05/24 Specimen Type: BLOOD No comment entered. Ordering Provider: FLAQUITO PÉREZ Report Released Date/Time: May 06, 2024 05:41 PM Reporting Lab: [place] [facility] [place] [facility] [address] [facility] [address] Performing Lab: [place] [facility] [place] [facility] [address] [facility] [address] [place] [facility] [place] [facility] CBC AND DIFF (AUTO) ERYTHROCYT E DISTRIBUTI ON WIDTH [RATIO] BY AUTOMATED COUNT 18.7 12.0 - 16.0 05/24 H Specimen Type: BLOOD No comment entered. Ordering Provider: FLAQUITO PÉREZ Report Released Date/Time: May 06, 2024 05:41 PM Reporting Lab: [place] [facility] [place] [facility] [address] [facility] [address] Performing Lab: [place] [facility] [place] [facility] [address] [facility] [address] [place] [facility] [place] [facility] CBC AND DIFF (AUTO) MONOCYTES [#/VOLUME] IN BLOOD BY AUTOMATED COUNT 0.62 10*3/uL 0.30 - 1.10 05/24 Specimen Type: BLOOD No comment entered. Ordering Provider: FLAQUITO PÉREZ Report Released Date/Time: May 06, 2024 05:41 PM Reporting Lab: [facility] [facility] [address] [facility] [address] Performing Lab: [place] [facility] [place] [facility] [address] [facility] [address] [place] [facility] [facility] CBC AND DIFF (AUTO) MCH [ENTITIC MASS] BY AUTOMATED COUNT 25.0 pg 26.2 - 32.6 05/24 L Specimen Type: BLOOD No comment entered. Ordering Provider: FLAQUITO PÉREZ Report Released Date/Time: May 06, 2024 05:41 PM Reporting Lab: [facility] [place] [facility] [address] [facility] [address] Performing Lab: [facility] [place] [facility] [address] [facility] [address] [facility] [place] [facility] CBC AND DIFF (AUTO) NEUTROPHIL S/100 LEUKOCYTES IN BLOOD BY AUTOMATED COUNT 81.5 43.7 - 75.8 05/24 H Specimen Type: BLOOD No comment entered. Ordering Provider: FLAQUITO PÉREZ Report Released Date/Time: May 06, 2024 05:41 PM Reporting Lab: [facility] [place] [facility] [address] [facility] [address] Performing Lab: [facility] [facility] [address] [facility] [address] [place] [facility] [facility] CBC AND DIFF (AUTO) LYMPHOCYTE S/100 LEUKOCYTES IN BLOOD BY AUTOMATED COUNT 10.2 14.0 - 42.3 05/24 L Specimen Type: BLOOD No comment entered. Ordering Provider: FLAQUITO PÉREZ Report Released Date/Time: May 06, 2024 05:41 PM Reporting Lab: [facility] [place] [address] [address] Performing Lab: [facility] [place] [facility] [address] [facility] [address] [place] [facility] [facility] CBC AND DIFF (AUTO) MONOCYTES/ 100 LEUKOCYTES IN BLOOD BY AUTOMATED COUNT 7.3 5.1 - 13.7 05/24 Specimen Type: BLOOD No comment entered. Ordering Provider: FLAQUITO PÉREZ Report Released Date/Time: May 06, 2024 05:41 PM Reporting Lab: [facility] [place] [facility] [address] [facility] [address] Performing Lab: [facility] [place] [facility] [address] [facility] [address] [place] [facility] [facility] CBC AND DIFF (AUTO) EOSINOPHIL S/100 LEUKOCYTES IN BLOOD BY AUTOMATED COUNT 0.0 0.4 - 6.8 05/24 L Specimen Type: BLOOD No comment entered. Ordering Provider: FLAQUITO PÉREZ Report Released Date/Time: May 06, 2024 05:41 PM Reporting Lab: [facility] [place] [facility] [address] [facility] [address] Performing Lab: [facility] [place] [facility] [address] [facility] [address] [facility] [facility] CBC AND DIFF (AUTO) BASOPHILS/ 100 LEUKOCYTES IN BLOOD BY AUTOMATED COUNT 0.5 0.1 - 2.0 05/24 Specimen Type: BLOOD No comment entered. Ordering Provider: FLAQUITO PÉREZ Report Released Date/Time: May 06, 2024 05:41 PM Reporting Lab: [facility] [facility] [address] [facility] [address] Performing Lab: [facility] [place] [facility] [address] [facility] [address] [place] [facility] [place] [facility] CBC AND DIFF (AUTO) NEUTROPHIL S [#/VOLUME] IN BLOOD BY AUTOMATED COUNT 6.88 10*3/uL 2.20 - 7.60 05/24 Specimen Type: BLOOD No comment entered. Ordering Provider: FLAQUITO PÉREZ Report Released Date/Time: May 06, 2024 05:41 PM Reporting Lab: [facility] [place] [facility] [address] [facility] [address] Performing Lab: [facility] [place] [facility] [address] [facility] [address] [place] [facility] [place] [facility] CBC AND DIFF (AUTO) LYMPHOCYTE S [#/VOLUME] IN BLOOD BY AUTOMATED COUNT 0.86 10*3/uL 1.00 - 3.20 05/24 L Specimen Type: BLOOD No comment entered. Ordering Provider: FLAQUITO PÉREZ Report Released Date/Time: May 06, 2024 05:41 PM Reporting Lab: [facility] [facility] [address] [facility] [address] Performing Lab: [facility] [place] [facility] [address] [facility] [address] [facility] [place] [facility] CBC AND DIFF (AUTO) EOSINOPHIL S [#/VOLUME] IN BLOOD BY AUTOMATED COUNT 0.00 10*3/uL 0.03 - 0.44 05/24 L Specimen Type: BLOOD No comment entered. Ordering Provider: FLAQUITO PÉREZ Report Released Date/Time: May 06, 2024 05:41 PM Reporting Lab: [place] [facility] [place] [address] [address] Performing Lab: [place] [facility] [place] [address] [address] [place] [facility] [facility] CBC AND DIFF (AUTO) BASOPHILS [#/VOLUME] IN BLOOD BY AUTOMATED COUNT 0.04 10*3/uL 0.01 - 0.13 05/24 Specimen Type: BLOOD No comment entered. Ordering Provider: FLAQUITO PÉREZ Report Released Date/Time: May 06, 2024 05:41 PM Reporting Lab: [facility] [place] [address] [address] Performing Lab: [place] [facility] [address] [address] [facility] CBC AND DIFF (AUTO) IMMATURE GRANULOCYT ES/100 LEUKOCYTES IN BLOOD BY AUTOMATED COUNT 0.5 0.0 - 0.7 05/24 Specimen Type: BLOOD No comment entered. Ordering Provider: FLAQUITO PÉREZ Report Released Date/Time: May 06, 2024 05:41 PM Reporting Lab: [place] [facility] [place] [address] [address] Performing Lab: [place] [facility] [place] [address] [address] [facility] [place] [facility] CBC AND DIFF (AUTO) IMMATURE GRANULOCYT ES [#/VOLUME] IN BLOOD 0.04 10*3/uL 0.00 - 0.06 05/24 Specimen Type: BLOOD No comment entered. Ordering Provider: FLAQUITO PÉREZ Report Released Date/Time: May 06, 2024 05:41 PM Reporting Lab: [place] [facility] [place] [address] [address] Performing Lab: [place] [facility] [place] [facility] [address] [facility] [address] [facility] [place] [facility] CBC AND DIFF (AUTO) NRBC % 0.0 0.0 - 0.0 05/24 Specimen Type: BLOOD No comment entered. Ordering Provider: FLAQUITO PÉREZ Report Released Date/Time: May 06, 2024 05:41 PM Reporting Lab: [facility] [place] [facility] [address] [facility] [address] Performing Lab: [place] [facility] [facility] [address] [facility] [address] [facility] [place] [facility] CBC AND DIFF (AUTO) NRBC, ABS 0.00 10*3/uL 0.00 - 0.00 05/24 Specimen Type: BLOOD No comment entered. Ordering Provider: FLAQUITO PÉREZ Report Released Date/Time: May 06, 2024 05:41 PM Reporting Lab: [facility] [place] [facility] [address] [facility] [address] Performing Lab: [facility] [place] [address] [address] [facility] URIC ACID URATE [MASS/VOLU ME] IN SERUM OR PLASMA 5.3 mg/dL 3.5 - 7.2 01/04 Specimen Type: SERUM No comment entered. Ordering Provider: FLAQUITO PÉREZ Report Released Date/Time: Dec 31, 2023 11:06 AM Reporting Lab: [facility] [place] [address] [address] Performing Lab: [facility] [place] [address] [address] [facility] [place] [facility] URINALYS IS CLEAN CATCH COLOR OF URINE Light-Ye llow 01/04 Specimen Type: URINE Comment: If Glucose = >500 and Ketones are positive, please alert the Physician. Ordering Provider: FLAQUITO PÉREZ Report Released Date/Time: Dec 31, 2023 11:06 AM Reporting Lab: [facility] [place] [facility] [address] [facility] [address] Performing Lab: [place] [facility] [facility] [address] [facility] [address] [facility] [place] [facility] URINALYS IS CLEAN CATCH APPEARANCE OF URINE Clear 01/04 Specimen Type: URINE Comment: If Glucose = >500 and Ketones are positive, please alert the Physician. Ordering Provider: FLAQUITO PÉREZ Report Released Date/Time: Dec 31, 2023 11:06 AM Reporting Lab: [facility] [place] [facility] [address] [facility] [address] Performing Lab: [place] [facility] [place] [address] [address] [place] [facility] [facility] URINALYS IS CLEAN CATCH GLUCOSE [MASS/VOLU ME] IN URINE NEGATIVE mg/dL 01/04 Specimen Type: URINE Comment: If Glucose = >500 and Ketones are positive, please alert the Physician. Ordering Provider: FLAQUITO PÉREZ Report Released Date/Time: Dec 31, 2023 11:06 AM Reporting Lab: [facility] [place] [facility] [address] [facility] [address] Performing Lab: [place] [facility] [facility] [address] [facility] [address] [facility] [place] [facility] URINALYS IS CLEAN CATCH KETONES [MASS/VOLU ME] IN URINE BY TEST STRIP NEGATIVE mg/dL 01/04 Specimen Type: URINE Comment: If Glucose = >500 and Ketones are positive, please alert the Physician. Ordering Provider: FLAQUITO PÉREZ Report Released Date/Time: Dec 31, 2023 11:06 AM Reporting Lab: [facility] [place] [address] [address] Performing Lab: [facility] [place] [address] [address] [place] [facility] [facility] URINALYS IS CLEAN CATCH ERYTHROCYT ES [PRESENCE] IN URINE SEDIMENT BY LIGHT MICROSCOPY NEGATIVE mg/dL 01/04 Specimen Type: URINE Comment: If Glucose = >500 and Ketones are positive, please alert the Physician. Ordering Provider: FLAQUITO PÉREZ Report Released Date/Time: Dec 31, 2023 11:06 AM Reporting Lab: [facility] [place] [facility] [address] [facility] [address] Performing Lab: [facility] [place] [facility] [address] [facility] [address] [facility] [place] [facility] URINALYS IS CLEAN CATCH PROTEIN [MASS/VOLU ME] IN URINE BY TEST STRIP NEGATIVE mg/dL 01/04 Specimen Type: URINE Comment: If Glucose = >500 and Ketones are positive, please alert the Physician. Ordering Provider: FLAQUITO PÉREZ Report Released Date/Time: Dec 31, 2023 11:06 AM Reporting Lab: [facility] [place] [facility] [address] [facility] [address] Performing Lab: [place] [facility] [facility] [address] [facility] [address] [place] [facility] [facility] URINALYS IS CLEAN CATCH NITRITE [PRESENCE] IN URINE NEGATIVE mg/dL 01/04 Specimen Type: URINE Comment: If Glucose = >500 and Ketones are positive, please alert the Physician. Ordering Provider: FLAQUITO PÉREZ Report Released Date/Time: Dec 31, 2023 11:06 AM Reporting Lab: [facility] [place] [facility] [address] [facility] [address] Performing Lab: [facility] [place] [facility] [address] [facility] [address] [facility] [facility] URINALYS IS CLEAN CATCH BILIRUBIN. TOTAL [PRESENCE] IN URINE NEGATIVE mg/dL 01/04 Specimen Type: URINE Comment: If Glucose = >500 and Ketones are positive, please alert the Physician. Ordering Provider: FLAQUITO PÉREZ Report Released Date/Time: Dec 31, 2023 11:06 AM Reporting Lab: [facility] [place] [facility] [address] [facility] [address] Performing Lab: [facility] [place] [facility] [address] [facility] [address] [facility] [address] [facility] URINALYS IS CLEAN CATCH SPECIFIC GRAVITY OF URINE BY REFRACTOME TRY 1.023 1.016 - 1.022 01/04 H Specimen Type: URINE Comment: If Glucose = >500 and Ketones are positive, please alert the Physician. Ordering Provider: FLAQUITO PÉREZ Report Released Date/Time: Dec 31, 2023 11:06 AM Reporting Lab: [facility] [place] [facility] [address] [facility] [address] Performing Lab: [facility] [place] [facility] [address] [facility] [address] [facility] [address]ITAL[facility] URINALYS IS CLEAN CATCH PH OF URINE BY TEST STRIP 6.5 5.0 - 9.0 01/04 Specimen Type: URINE Comment: If Glucose = >500 and Ketones are positive, please alert the Physician. Ordering Provider: FLAQUITO PÉREZ Report Released Date/Time: Dec 31, 2023 11:06 AM Reporting Lab: [facility] [place] [facility] [address] [facility] [address] Performing Lab: [facility]ITAL[facility]CH [facility] HOSPITALUSETS [facility] [address] [facility] [address] [facility] [address]ITALUSE [facility] URINALYS IS CLEAN CATCH UROBILINOG EN [MASS/VOLU ME] IN URINE BY TEST STRIP <2.0mg/d L <2.0 - 2.0 01/04 Specimen Type: URINE Comment: If Glucose = >500 and Ketones are positive, please alert the Physician. Ordering Provider: FLAQUITO PÉREZ Report Released Date/Time: Dec 31, 2023 11:06 AM Reporting Lab: [facility] [place] [facility] [address] [facility] [address] Performing Lab: [facility]ITALUSE[facility] [address] [facility] [address] [facility] [facility]ITALUSE [facility] URINALYS IS CLEAN CATCH LEUKOCYTE ESTERASE [PRESENCE] IN URINE BY TEST STRIP NEGATIVE 01/04 Specimen Type: URINE Comment: If Glucose = >500 and Ketones are positive, please alert the Physician. Ordering Provider: FLAQUITO PÉREZ Report Released Date/Time: Dec 31, 2023 11:06 AM Reporting Lab: [facility] [place] [facility] [address] [facility] [address] Performing Lab: [facility] [place] [facility] [address] [facility] [address] [facility] [place] [facility] LIVER FUNCTION PROTEIN [MASS/VOLU ME] IN SERUM OR PLASMA 6.2 g/dL 6.0 - 8.3 01/04 Specimen Type: SERUM No comment entered. Ordering Provider: FLAQUITO PÉREZ Report Released Date/Time: Dec 31, 2023 11:06 AM Reporting Lab: [facility] [place] [facility] [address] [facility] [address] Performing Lab: [facility] [place] [facility] [address] [facility] [address] [place] [facility] [facility] LIVER FUNCTION ALBUMIN [MASS/VOLU ME] IN SERUM OR PLASMA 2.9 g/dL 3.5 - 5.0 01/04 L Specimen Type: SERUM No comment entered. Ordering Provider: FLAQUITO PÉREZ Report Released Date/Time: Dec 31, 2023 11:06 AM Reporting Lab: [facility] [place] [facility] [address] [facility] [address] Performing Lab: [facility] [place] [facility] [address] [facility] [address] [place] [facility] [facility] LIVER FUNCTION ALKALINE PHOSPHATAS E [ENZYMATIC ACTIVITY/V OLUME] IN SERUM OR PLASMA 234 U/L 40 - 150 01/04 H Specimen Type: SERUM No comment entered. Ordering Provider: FLAQUITO PÉREZ Report Released Date/Time: Dec 31, 2023 11:06 AM Reporting Lab: [facility] [place] [facility] [address] [facility] [address] Performing Lab: [facility] [place] [facility] [address] [facility] [address] [facility] [place] [facility] LIVER FUNCTION ASPARTATE AMINOTRANS FERASE [ENZYMATIC ACTIVITY/V OLUME] IN SERUM OR PLASMA 18 U/L 5 - 34 01/04 Specimen Type: SERUM No comment entered. Ordering Provider: FLAQUITO PÉREZ Report Released Date/Time: Dec 31, 2023 11:06 AM Reporting Lab: [place] [facility] [place] [facility] [address] [facility] [address] Performing Lab: [place] [facility] [place] [facility] [address] [facility] [address] [place] [facility] LIVER FUNCTION ALANINE AMINOTRANS FERASE [ENZYMATIC ACTIVITY/V OLUME] IN SERUM OR PLASMA 16 U/L 01/04 Specimen Type: SERUM No comment entered. Ordering Provider: FLAQUITO PÉREZ Report Released Date/Time: Dec 31, 2023 11:06 AM Reporting Lab: [place] [facility] [facility] [address] [facility] [address] Performing Lab: [place] [facility] [facility] [address] [facility] [address] [facility] LIVER FUNCTION BILIRUBIN. TOTAL [MASS/VOLU ME] IN SERUM OR PLASMA 0.4 mg/dL 0.2 - 1.2 01/04 Specimen Type: SERUM No comment entered. Ordering Provider: FLAQUITO PÉREZ Report Released Date/Time: Dec 31, 2023 11:06 AM Reporting Lab: [place] [facility] [facility] [address] [facility] [address] Performing Lab: [place] [address] [address] [facility] [place] [facility] Vital Signs Combined list of inpatient and outpatient Vital Signs from Department of Defense and Veterans Affairs, ranging from 12 months to all on record, depending upon the facility. Vital Sign Value Date Comments Source SYSTOLIC BLOOD PRESSURE 110 05/30/20 24 15:22:17 [place] [facility] [facility] DIASTOLIC BLOOD PRESSURE 72 024 15:22:17 [place] [facility] [facility] PULSE OXIMETRY 96 05/30/2024 15:22:17 [place] [facility] [place] [facility] WEIGHT 184.5 05/30/2024 15:22:17 [facility] [id number] 03/24 [facility] En[facility] [id number] 03/24 [facility] [id number] 03/25 [facility] Encounter [id number] 03/26 [facility] Encounter [id number] 03/29 [facility] Out[facility] Encounter [id number] 03/30 [facility] Out[facility] Encounter [id number] 03/30 [facility] Encounter [id number] 04/01 [facility] Out[facility] Encounter [id number] 04/08 [facility] Out[facility] Encounter [id number] 04/12 [facility] Encounter [id number] 04/13 [facility] Out[facility] Encounter [id number] 04/15 [facility] Encounter [id number] 04/15 [facility] Out[facility] Encounter [id number] 04/16 [facility] Out[facility] Encounter [id number] 04/18 [facility] [place] [id number] Diagnos is: ICD-10- CM Z71.3 Dietary vp & general counsel ing and surveil soo<b r/> COOPER MARK 04/19 [facility] Out[facility] Encounter [id number] 04/20 [facility] Out[facility] Encounter [id number] 04/20 [facility] (6[facility]GE) QNHP OL DIG ASSMT&MGMT 5-10 [id number] Diagnos is: ICD-10- CM R63.4 Abnorma l weight loss
PALOMA,CHR ISTINE F 04/21 [facility] (631GE) [facility] (631GE) QNHP OL DIG ASSMT&MGMT 5-10 [id number] Diagnos is: ICD-10- CM R63.4 Abnorma l weight loss
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
CECILIA PÉREZ RD D 04/23 [facility] Out[facility] Encounter [id number] 04/26 [facility] Out[facility] Encounter [id number] 04/28 [facility] Out[facility] Encounter [id number] 04/29 [facility] Out[facility]counter [id number] 04/30 [facility] Out[facility] Encounter [id number] 04/30 [facility] QNHP OL DIG ASSMT&MGMT 08-23 [id number] Diagnos is: ICD-10- CM 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
MONALISA FANG 05/05 [facility] Out[facility] Encounter [id number] 05/20 [facility] Out[facility] Encounter [id number] 05/20 [facility] Out[facility] Encounter [id number] 05/24 [facility] Out[facility] Encounter [id number] 05/31 [facility] Out[facility] Encounter [id number] 06/01 [facility] Out[facility] Encounter [id number] 06/14 [facility] Out[facility] Encounter [id number] 06/17 [facility] Out[facility] Encounter [id number] 06/21 [facility] OFFICE O/P EST SF 10-19 MIN [id number] Diagnos is: ICD-10- CM 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
CECILIA PÉREZ RD D 06/22 [facility] Out[facility] Encounter [id number] 06/24 [facility] Out[facility] Encounter [id number] 06/29 [facility] IMMUNIZATI ON ADMIN [id number] Diagnos is: ICD-10- CM Z23 Encount er for immuniz ation<b r/> CECILIA PÉREZ RD D 06/29 [facility] Out[facility] Encounter [id number] 07/05 [facility] Out[facility] Encounter [id number] 07/08 [facility] Out[facility]counter [id number] 07/13 [facility] Out[facility] Encounter [id number] 07/15 [facility] Out[facility] Encounter [id number] 07/19 [facility] Out[facility] Encounter [id number] 07/22 [facility] OFFICE O/P EST LOW 20-29 MIN [id number] Diagnos is: ICD-10- CM R73.01 Impaire d fasting glucose
Britta VIDALES AVID 07/27 [facility] Out[facility] Encounter [id number] 07/28 [facility] Out[facility] Encounter [id number] 08/02 [facility] Out[facility] Encounter [id number] 08/06 [facility] DIABETIC CUSTOM MOLDED SHOE [id number] Diagnos is: ICD-10- CM Q66.70 Congeni kriss pes cavus, unspeci fied foot
FAUSTINO,DOMINIC YUNIOR 08/16 [facility] Out[facility] Encounter [id number] 08/17 [facility] Out[facility] Encounter [id number] 08/30 [facility] Out[facility] Encounter [id number] 09/02 [facility] Out[facility] Encounter [id number] 09/08 [facility] Out[facility] Encounter [id number] 09/29 [facility] Out[facility] Encounter [id number] 10/07 [facility] OFFICE O/P EST SF 10 MIN [id number] Diagnos is: ICD-10- CM 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
CECILIA PÉREZ RD D 10/08 [facility] Out[facility] Encounter [id number] 10/11 [facility] Out[facility] Encounter [id number] 10/14 [facility] Out[facility] Encounter [id number] 11/10 [facility] Out[facility] Encounter [id number] 11/16 [facility] Out[facility] Encounter [id number] 11/23 [facility] Out[facility] Encounter [id number] 11/25 [facility] Out[facility]counter [id number] 12/06 [facility] Out[facility] Encounter [id number] 12[facility]15 [facility] Out[facility] Encounter [id number] 12/16 [facility] Out[facility] Encounter [id number] 12/20 [facility] Out[facility] Encounter [id number] 01/02 [facility] Out[facility]counter [id number] 01/10 [facility] OFFICE O/P EST LOW 20 MIN [id number] Diagnos is: ICD-10- CM 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
CECILIA PÉREZ RD D 01/10 [facility] COMPRE OPH EXAM EST PT 1/> [id number] Diagnos is: ICD-10- CM H25.813 Combine d forms of age-rel ated catarac t, bilater al
MERHAR,KALEB H B 01/16 [facility] FIT SPECTACLES MONOFOCAL [id number] Diagnos is: ICD-10- CM Z46.0 Encount er for fit/adj st of spectac les and contact lenses< br/> MERMELBA,KALEB H B 01/16 [facility] Out[facility] Encounter [id number] 02/01 [facility] Out[facility] Encounter [id number] 02/09 [facility] Outpatient Encounter [id number] 03/06 [facility] Outpatient Encounter [id number] 03/19 [facility] Out[facility] Encounter [id number] 03/27 [facility] Out[facility] Encounter [id number] 04/05 [facility] Out[facility] Encounter [id number] 04/13 [facility] Out[facility] Encounter [id number] 05/08 [facility] Out[facility] Encounter [id number] 05/16 [facility] Out[facility]counter [id number] 05/18 [facility] Out[facility] Encounter [id number] 05/24 [facility] OFFICE O/P EST SF 10 MIN [id number] Diagnos is: ICD-10- CM 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
CECILIA PÉREZ RD D 05/30 [facility] En[facility] [id number] 06/08 [facility] Out[facility] Encounter [id number] 06/15 [facility] Out[facility] Encounter [id number] 1.06/19 [facility] Out[facility] Encounter [id number] [facility] Out[facility] Encounter [id number] 06/29 [facility] OFFICE O/P EST LOW 20 MIN [id number] Diagnos is: ICD-10- CM Q66.70 Congeni kriss pes cavus, unspeci fied foot
NICHOLAS HENDERSON D 07/27 [facility] Out[facility] Encounter [id number] 08/04 [facility] DIABETIC CUSTOM MOLDED SHOE [id number] Diagnos is: ICD-10- CM Q66.70 Congeni kriss pes cavus, unspeci fied foot
GREWALKATHARINE TT LINO 08/16 [place] [facility] [place] [place] Outpatient Encounter [id number] [place] [facility] [facility] [place] [facility] [place] [facility] Outpatient Encounter [id number] 1.08/30 [place] [facility] [place] [facility] Social History Combined list of available smoking, tobacco, and other social history from Department of Defense and Veterans Affairs facilities. Social History Type Response Date Comment [facility] e Tobacco smoking status [facility] NEVER USED 01/11/2024 [place] [facility] [place] [facility] [place] [facility] [place] [facility] History of tobacco use [place]-TO[place]ACCO NEVER USED 12/31/2020 [facility] [place] [facility] History of tobacco use [place]-TOBACCO NEVER USED 12/27/2019 [place] [facility] [place] [place] [facility] History of tobacco use [place]-TOBACCO NEVER USED 06/30/2018 [place] [facility] [place] [place] [facility] History of tobacco use LIFETIME NON-TOBACCO USER 12/23/2017 [place] [facility] [place] [place] [facility] History of tobacco use LIFETIME NON-TOBACCO USER 12/22/2016 [place] [facility] [place] [facility] History of tobacco use LIFETIME NON-TOBACCO USER 12/24/2015 [place] [facility] History of tobacco use LIFETIME NON-SMOKER 06/19/2004 [facility] [place] [facility] History of tobacco use LIFETIME NON-SMOKER 06/19/2004 [facility] [place] [facility] Plan of Care List of future care activities from Department of Veterans Affairs facilities. Additional future care activities may be listed in the Assessment and Plan section. Date/Time Care Activity Care Activity Detail Facili ty 10/18/2024 AMBULATORY - MEDICINE AMBULATORY - MEDICI [facility] 02/14/2025 AMBULATORY - MEDICINE AMBULATORY - MEDICI [facility] Advance Directives List of completed, amended, or rescinded Advance Directives on record at Department of [facility] facilities. An actual copy of the Directive is not included. Date Advance Directive Provider Source 05/20/2006 ADVANCE DIRECTIVE MARINA FAJARDO [facility]
--- OUTSIDE RECORDS SUMMARY | 2024-09-21 08:57 | XMS_ITS | Encounter Summary ---
Author Name [facility] [place] [facility] [place] [facility] Address [address] [place] [id number] Care Team Providers Care Communications Marketing Intern Name Role Phone OLIVA PÉREZ Primary Care [...] TOMER ROBLES OF [facility] MarginLeft GE Apr 03, 2009 [id number] BLANCHE, JANET SPOUSE BCBS [facility] EDO BLUE* Apr 03, 2009 [id number] BLANCHE, JANET SPOUSE BCBS [facility] Innovari GE Apr 03, 2009 [id number] [phone] FRANCIS MANCIA SPOUSE [employer] ([id number]) PRESCRIPT ION L4TA* Apr 03, 2009 L4TA [id number] FRANCIS MANCIA [employer] ([id number]) PRESCRIPT ION L4TA* Apr 03, 2009 L4TA [id number] FRANCIS MANCIA [employer] ([id number]) PRESCRIPT ION Apr 03, 2009 L4TA [id number] FRANCIS MANCIA SPOUSE MEDICARE (WNR) MEDICARE (M) PART B Jun 04, 2020 PART B [id number] RAÚL MANCIA PATIENT MEDICARE (WNR) MEDICARE (M) PART A Oct 04, 2006 PART A [id number] RAÚL MANCIA PATIENT MEDICARE (WNR) MEDICARE (M) PART A Oct 04, 2006 PART A [id number] RAÚL MANCIA PATIENT Selected Encounter This [...] 07, 2023 10:30 AM AMBULATORY - MEDICINE [facility] [place] [facility] Oct 08, 2023 03:30 PM AMBULATORY - MEDICINE [facility] [facility] Dec 16, 2023 11:00 AM AMBULATORY - MEDICINE [facility] [facility] Jan 11, 2024 10:00 AM AMBULATORY - MEDICINE [facility] [place] [facility] Jan 17, 2024 07:30 AM AMBULATORY MEDICINE [facility] [place] [facility] Active, Pending, and Scheduled Orders This [...] data comes from all [place] treatment facilities. Test Date/Time Test Type Test Details Facility Name Oct 01, 2023 12:00 AM Laboratory - Chemistry Order URINALYSIS CLEAN CATCH URINE SP [facility] Lab Results: +/- 30 [...] Range Comment Oct 01, 2023 07:31 AM [facility] URIC ACID Specimen Type: SERUM No comment entered. Ordering Provider: OLIVA PÉREZ Report Released Date/Time: Sep 26, 2023 06:56 PM Reporting Lab: [facility] [address] [address] Performing Lab: [facility] [address] [address] URIC ACID 5.6 mg/dL 3.5-7.2 Oct 01, 2023 07:31 AM [facility] TSH Specimen Type: SERUM No comment entered. Ordering Provider: OLIVA PÉREZ Report Released Date/Time: Sep 26, 2023 06:56 PM Reporting Lab: [facility] [address] [address] Performing Lab: [facility] [address] [address] TSH 1.01 u[IU]/mL 0.35-5.00 Oct 01, 2023 07:31 AM [facility] BASIC METABOLIC PANEL (fasting) Specimen Type: SERUM No comment entered. Ordering Provider: OLIVA PÉREZ Report Released Date/Time: Sep 26, 2023 06:56 PM Reporting Lab: [facility] [address] [address] Performing Lab: [facility] [address] UREA NITROGEN 25 mg/dL 7-25 GLUCOSE 105 mg/dL H 65-100 SODIUM 139 mmol/L 135-145 POTASSIUM 4.3 mmol/L 3.5-5.0 CHLORIDE 106 mmol/L 100-110 CO2 23 meq/L 20-30 CREATININE, Serum 0.85 mg/dL 0.50-1.40 eGFR(CKD-EPI 2020) 89 mL/min >60 Oct 01, 2023 07:31 AM [facility] LIPID PANEL FASTING Specimen Type: SERUM No comment entered. Ordering Provider: OLIVA PÉREZ Report Released Date/Time: Sep 26, 2023 06:56 PM Reporting Lab: [address] [address] Performing Lab: [address] [address] CHOLESTEROL 183 mg/dL TRIGLYCERIDE 104 mg/dL 0-150 LDL calculated 114 mg/dL 0-129 CHOL/HDL 3.8 HDL CHOLESTEROL 48 mg/dL 40-60 Oct 01, 2023 07:31 AM [facility] LIVER FUNCTION Specimen Type: SERUM No comment entered. Ordering Provider: OLIVA PÉREZ Report Released Date/Time: Sep 26, 2023 06:56 PM Reporting Lab: [address] [address] Performing Lab: [address] [address] PROTEIN,TOTAL 6.4 g/dL 6.0-8.3 ALBUMIN 3.7 g/dL 3.5-5.0 ALKALINE PHOSPHATASE 130 U/L 40-150 AST 16 U/L 5-34 ALT 12 U/L BILIRUBIN, TOTAL 0.4 mg/dL 0.2-1.2 Oct 01, 2023 07:31 AM [facility] CBC AND DIFF (AUTO) Specimen Type: BLOOD No comment entered. Ordering Provider: OLIVA PÉREZ Report Released Date/Time: Sep 26, 2023 06:56 PM Reporting Lab: [address] [address] Performing Lab: [facility] [address] [facility] [address] WBC 6.28 10*3/uL 4.50-11.00 RBC 4.75 10*6/uL 4.23-5.66 HGB 12.0 g/dL L 12.8-17 HCT 38.4 L 39.2-50.4 MCV 80.8 fL L 82-99 MCHC 31.3 g/dL 30.8-35.1 PLT 190 10*3/uL 140-360 RDW-CV 15.2 12.0-16.0 [place], Abs 0.56 10*3/uL 0.30-1.10 MCH 25.3 pg L 26.2-32.6 Neut % 73.1 43.7-75.8 Lymph % 13.5 L 14.0-42.3 [place] % 8.9 5.1-13.7 Eos % 3.7 0.4-6.8 [...] 27, 2023 10:00 AM VA-TOBACCO NEVER USED [facility] Tobacco Use History This section includes a history of the smoking, or tobacco-related health factors, that were collected on or before the date of the Encounter. The data comes from the [place] facility where the Encounter took place. Date/Time Smoking Status/Tobacco Use Comment F acility Jan 06, 2022 09:00 AM VA-TOBACCO NEVER USED [facility] [place] [facility] Dec 31, 2020 08:00 AM VA-TOBACCO NEVER USED [facility] [place] [facility] Dec 27, 2019 09:48 AM VA-TOBACCO NEVER USED [facility] [place] [facility] Jun 30, 2018 08:41 AM VA-TOBACCO NEVER USED [facility] [place] [facility] Dec 23, 2017 07:46 AM LIFETIME NON-TOBACCO USER [facility] [place] [facility] Dec 22, 2016 08:06 AM LIFETIME NON-TOBACCO USER [facility] [place] [facility] Dec 24, 2015 08:36 AM LIFETIME NON-TOBACCO USER [facility] [place] [facility] Jun 19, 2004 01:52 PM LIFETIME NON-SMOKER [facility] [place] [facility] Jun 19, 2004 01:52 PM LIFETIME NON-TOBACCO USER [facility] [place] [facility] Jun 19, 2004 01:34 PM LIFETIME NON-SMOKER [facility] [place] [facility] Jun 19, 2004 01:34 PM LIFETIME NON-TOBACCO USER [facility] [place] [facility] Advance Directives: All historical and current [...] MARINA FAJARDO [facility] [place] [facility] Encounter Notes: All associated encounter notes [...] appt. [ ] Location in [facility] [address] [facility] [X] Fasting labs [ ] Lab work within 30 days [ ] Urine [ ] No Preparation Action taken: [ ] Called , left voice message [ ] Called , unable to leave voice mail [X] Spoke to /healthcare insurance sales agent to remind them of upcoming appt/preparations Upcoming Appointments: 10/08/2023 15:30 CWM/NO/PACT 2 02/25/2024 10:30 NHM/OPTOMETRY/[place] 07/27/2024 08:00 CWM/NO/PODIATRY A /es/ BRAIN ROBERTSON AMSA Signed: 09/29/2023 14:14 [facility] [place] [facility]
--- OUTSIDE RECORDS SUMMARY | 2024-09-21 08:58 | XMS_ITS ---
Author Name [facility] [place] Address [address] [place] [address] Care Team Providers Care Mill Oiler Name Role Phone OLIVA PÉREZ Primary Care [...] Policy Root TOMER BOWMANBS OF [facility] [employer] GE Apr 03, 2009 [id number] FRANCIS MANCIA SPOUSE [facility]* Apr 03, 2009 [id number] BLANCHE, JANET SPOUSE BCBS [facility] [employer] GE Apr 03, 2009 [id number] [phone] FRANCIS MANCIA SPOUSE [employer] S[employer] ([id number]) PRESCRIPT ION L4TA* Apr 03, 2009 L4TA [id number] FRANCIS MANCIA SPOUSE [employer] ([id number]) PRESCRIPT ION L4TA* Apr 03, 2009 L4TA [id number] FRANCIS MANCIA SPOUSE [employer] ([id number]) PRESCRIPT ION Apr 03, 2009 L4TA [id number] FRANCIS MANCIA SPOUSE MEDICARE (WNR) MEDICARE (M) PART B Jun 04, 2020 PART B [id number] [phone] RAÚL MANCIA PATIENT MEDICARE (WNR) MEDICARE (M) PART A Oct 04, 2006 PART A [id number] RAÚL MANCIA PATIENT MEDICARE (WNR) MEDICARE (M) PART A Oct 04, 2006 PART A [id number] [phone] RAÚL MANCIA PATIENT Selected Encounter This section includes the information on record at [place] for the Encounter. Date/Time Encounter Type Encounter Description Reason Pro vider Source Oct 07, 2023 12:00 AM Outpatient Encounter COMMUNITY CARE CONSULT IHE Encounter Template Text not used by [place] Plan of Treatment: Future Appointments (+ 6 months) and Future Tests (+/- 45 days) The Plan of Treatment section includes future care activities for the patient from all [place] treatmentfacilities. This section includes future appointments and future orders which are active, pending or scheduled. Future Appointments This section includes appointments that were scheduled to occur 6 months from the date of the Encounter, up to a maximum of 20 appointments. The data comes from all [place] treatment facilities. Appointment Date/Time Appointment Type Appointme nt Facility Name Oct 08, 2023 03:30 PM [facility]UL[facility] [place] [facility] Dec 16, 2023 11:00 AM AM[facility]ULATORY - [facility] [place] [facility] Jan 11, 2024 10:00 AM [facility] Jan 17, 2024 07:30 AM [facility] Active, Pending, and Scheduled Orders This section includes a listing of several types of active, pending, and scheduled orders, including clinic medications orders, diagnostic test orders, procedure orders and consult orders; where the start date of the order is 45 days before the date of the Encounter or 45 days after the date of theEncounter. The data comes from all [place] treatment facilities. Test Date/Time Test Type Test Details Facility Name Oct 01, 2023 12:00 AM Laboratory - Chemistry Order URINALYSIS CLEAN CATCH URINE SP [facility] Lab Results: +/- 30 days of the encounter This section includes the Chemistry and Hematology Lab Results on record with [place] for the patient. Radiology Reports and Pathology Reports are provided separately, in subsequent sections. Lab Results This section contains the Chemistry/Hematology Results that were resulted 30 days before or 30 daysafter the date of the Encounter. Date/Time Source Result Type Result - Unit Interpretation Reference Range Comment Oct 01, 2023 07:31 AM [facility] URIC ACID Specimen Type: SERUM No comment entered. Ordering Provider: OLIVA PÉREZ Report Released Date/Time: Sep 26, 2023 06:56 PM Reporting Lab: [address] [address] Performing Lab: [address] [address] URIC ACID 5.6 mg/dL 3.5-7.2 Oct 01, 2023 07:31 AM [facility] TSH Specimen Type: SERUM No comment entered. Ordering Provider: OLIVA PÉREZ Report Released Date/Time: Sep 26, 2023 06:56 PM Reporting Lab: [facility] [address] [facility] [address] Performing Lab: [address] [address] TSH 1.01 u[IU]/mL 0.35-5.00 Oct 01, 2023 07:31 AM [facility] BASIC METABOLIC PANEL (fasting) Specimen Type: SERUM No comment entered. Ordering Provider: OLIVA PÉREZ Report Released Date/Time: Sep 26, 2023 06:56 PM Reporting Lab: [facility] [address] [facility] [address] Performing Lab: [address] [address] UREA NITROGEN 25 mg/dL 7-25 GLUCOSE 105 mg/dL H 65-100 SODIUM 139 mmol/L 135-145 POTASSIUM 4.3 mmol/L 3.5-5.0 CHLORIDE 106 mmol/L 100-110 CO2 23 meq/L 20-30 CREATININE, Serum 0.85 mg/dL 0.50-1.40 eGFR(CKD-EPI 2020) 89 mL/min >60 Oct 01, 2023 07:31 AM [facility] LIPID PANEL FASTING Specimen Type: SERUM No comment entered. Ordering Provider: OLIVA PÉREZ Report Released Date/Time: Sep 26, 2023 06:56 PM Reporting Lab: [address] [address] Performing Lab: [address] [address] CHOLESTEROL 183 mg/dL TRIGLYCERIDE 104 mg/dL 0-150 LDL calculated 114 mg/dL 0-129 CHOL/HDL 3.8 HDL CHOLESTEROL 48 mg/dL 40-60 Oct 01, 2023 07:31 AM [facility] LIVER FUNCTION Specimen Type: SERUM No comment entered. Ordering Provider: OLIVA PÉREZ Report Released Date/Time: Sep 26, 2023 06:56 PM Reporting Lab: [address] [address] Performing Lab: [address] [address] PROTEIN,TOTAL 6.4 g/dL 6.0-8.3 ALBUMIN 3.7 g/dL 3.5-5.0 ALKALINE PHOSPHATASE 130 U/L 40-150 AST 16 U/L 5-34 ALT 12 U/L BILIRUBIN, TOTAL 0.4 mg/dL 0.2-1.2 Oct 01, 2023 07:31 AM [facility] CBC AND DIFF (AUTO) Specimen Type: BLOOD No comment entered. Ordering Provider: OLIVA PÉREZ Report Released Date/Time: Sep 26, 2023 06:56 PM Reporting Lab: [facility] [address] [facility] [address] Performing Lab: [address] [address] WBC 6.28 10*3/uL 4.50-11.00 RBC 4.75 10*6/uL 4.23-5.66 HGB 12.0 g/dL L 12.8-17 HCT 38.4 L 39.2-50.4 MCV 80.8 fL L 82-99 MCHC 31.3 g/dL 30.8-35.1 PLT 190 10*3/uL 140-360 RDW-CV 15.2 12.0-16.0 [place], Abs 0.56 10*3/uL 0.30-1.10 MCH 25.3 pg L 26.2-32.6 Neut % 73.1 43.7-75.8 Lymph % 13.5 L 14.0-42.3 [place] % 8.9 5.1-13.7 Eos % 3.7 0.4-6.8 [...] and tobacco- related health factors from the [place] facility where the Encounter took place. Current Smoking Status This section includes the most current smoking, or tobacco-related health factor, from the [place] facility where the Encounter took place. Date/Time Current Smoking Status Comment Facil ity Jan 27, 2023 10:00 AM VA-TOBACCO NEVER USED [facility] Tobacco Use History This section includes a history of the smoking, or tobacco-related health factors, that were collected on or before the date of the Encounter. The data comes from the [place] facility where the Encounter took place. Date/Time Smoking Status/Tobacco Use Comment F acility Jan 06, 2022 09:00 AM VA-TOBACCO NEVER USED [facility] Dec 31, 2020 08:00 AM VA-TOBACCO NEVER USED [facility] [place] [facility] Dec 27, 2019 09:48 AM VA-TOBACCO NEVER USED [facility] [place] [facility] Jun 30, 2018 08:41 AM VA-TOBACCO NEVER USED [facility] [place] [facility] Dec 23, 2017 07:46 AM LIFETIME NON-TOBACCO USER [facility] [place] [facility] Dec 22, 2016 08:06 AM LIFETIME NON-TOBACCO USER [facility] [place] [facility] Dec 24, 2015 08:36 AM LIFETIME NON-TOBACCO USER [facility] [place] [facility] Jun 19, 2004 01:52 PM LIFETIME NON-SMOKER [facility] [place] [facility] Jun 19, 2004 01:52 PM LIFETIME NON-TOBACCO USER [facility] [place] [facility] Jun 19, 2004 01:34 PM LIFETIME NON-SMOKER [place] [facility] [place] [facility] Jun 19, 2004 01:34 PM LIFETIME NON-TOBACCO USER [facility] [place] [facility] Advance Directives: All historical and current Section Date Range: From patient's date of to the date document was created. This section includes ALL of a patient's completed or amended [place] Advance and Rescinded Directives. The entries below indicate that a directive exists for the patient, but an actual copy is not included with this document. The data comes from all [place] facilities. Date Advance Directives Provider Source May 20, 2006 ADVANCE DIRECTIVE MARINA FAJARDO [place] [facility] Encounter Notes: All associated encounter notes [...] REQUIRED Electronically Filed: 10/15/2023 by: NIKOLE MONTAÑO [place] [facility]
--- OUTSIDE RECORDS SUMMARY | 2024-09-21 08:58 | XMS_ITS ---
Author Name [facility] [place] Address [address] [place] [address] Care Team Providers Care Operator Cavity Pump Name Role Phone OLIVA PEGUERO Primary Care [...] Relationship to Policy Root TOMER ROBLES OF [facility] Touch[employer] GE Apr 03, 2009 [id number] BLANCHE, JANET SPOUSE [facility] Apr 03, 2009 [id number] BLANCHE, JANET SPOUSE BCBS [facility] [employer] GE Apr 03, 2009 [id number] FRANCIS MANCIA SPOUSE [employer] ([id number]) PRESCRIPT ION L4TA* Apr 03, 2009 L4TA [id number] FRANCIS MANCIA SPOUSE [employer] ([id number]) PRESCRIPT ION L4TA* Apr 03, 2009 L4TA [id number] FRANCIS MANCIA SPOUSE [employer] ([id number]) PRESCRIPT ION Apr 03, 2009 L4TA [id number] FRANCIS MANCIA SPOUSE MEDICARE (WNR) MEDICARE (M) PART B Jun 04, 2020 PART B [id number] [phone] RAÚL MANCIA PATIENT MEDICARE (WNR) MEDICARE (M) PART A Oct 04, 2006 PART A [id number] RAÚL MANCIA PATIENT MEDICARE (WNR) MEDICARE (M) PART A Oct 04, 2006 PART A [id number] [phone] RAÚL MANCIA PATIENT Selected Encounter This section includes the information on record at [place] for the Encounter. Date/Time Encounter Type Encounter Description Reason Pro vider Source Oct 14, 2023 01:16 PM Outpatient Encounter PRIMARY CARE/MEDICINE IHE Encounter Template Text not used by [place] Plan of Treatment: Future Appointments (+ 6 [...] 20 appointments. The data comes from all [facility]. Appointment Date/Time Appointment Type Appointme nt Facility Name Dec 16, 2023 11:00 AM AMBULATORY - [facility]ICINE [facility] Jan 11, 2024 10:00 AM [facility] [place] [facility] Jan 17, 2024 07:30 AM AMBULATORY MEDICINE [facility] Active, Pending, and Scheduled Orders This section includes a listing of several types of active, pending, and scheduled orders, including clinic medications orders, diagnostic test orders, procedure orders and consult orders; where the start date of the order is 45 days before the date of the Encounter or 45 days after the date of theEncounter. The data comes from all [place] treatment [facility]. Test Date/Time Test Type Test Details Facility Name Oct 01, 2023 12:00 AM Laboratory - Chemistry Order URINALYSIS CLEAN CATCH URINE SP [facility] Lab Results: +/- 30 days of [...] Range Comment Oct 01, 2023 07:31 AM [facility] URIC ACID Specimen Type: SERUM No comment entered. Ordering Provider: OLIVA PEGUERO Report Released Date/Time: Sep 26, 2023 06:56 PM Reporting Lab: [address] [address] Performing Lab: [address] [address] URIC ACID 5.6 mg/dL 3.5-7.2 Oct 01, 2023 07:31 AM [facility] TSH Specimen Type: SERUM No comment entered. Ordering Provider: OLIVA PEGUERO Report Released Date/Time: Sep 26, 2023 06:56 PM Reporting Lab: [address] [address] Performing Lab: [address] [address] TSH 1.01 u[IU]/mL 0.35-5.00 Oct 01, 2023 07:31 AM [facility] BASIC METABOLIC PANEL (fasting) Specimen Type: SERUM No comment entered. Ordering Provider: OLIVA PEGUERO Report Released Date/Time: Sep 26, 2023 06:56 PM Reporting Lab: [address] [address] Performing Lab: [address] [address] UREA NITROGEN 25 mg/dL 7-25 GLUCOSE 105 mg/dL H 65-100 SODIUM 139 mmol/L 135-145 POTASSIUM 4.3 mmol/L 3.5-5.0 CHLORIDE 106 mmol/L 100-110 CO2 23 meq/L 20-30 CREATININE, Serum 0.85 mg/dL 0.50-1.40 eGFR(CKD-EPI 2020) 89 mL/min >60 Oct 01, 2023 07:31 AM [facility] LIVER FUNCTION Specimen Type: SERUM No comment entered. Ordering Provider: OLIVA PEGUERO Report Released Date/Time: Sep 26, 2023 06:56 PM Reporting Lab: [address] [address] Performing Lab: [address] [address] PROTEIN,TOTAL 6.4 g/dL 6.0-8.3 ALBUMIN 3.7 g/dL 3.5-5.0 ALKALINE PHOSPHATASE 130 U/L 40-150 AST 16 U/L 5-34 ALT 12 U/L BILIRUBIN, TOTAL 0.4 mg/dL 0.2-1.2 Oct 01, 2023 07:31 AM [facility] LIPID PANEL FASTING Specimen Type: SERUM No comment entered. Ordering Provider: OILVA PEGUERO Report Released Date/Time: Sep 26, 2023 06:56 PM Reporting Lab: [address] [address] Performing Lab: [address] [address] CHOLESTEROL 183 mg/dL TRIGLYCERIDE 104 mg/dL 0-150 LDL calculated 114 mg/dL 0-129 CHOL/HDL 3.8 HDL CHOLESTEROL 48 mg/dL 40-60 Oct 01, 2023 07:31 AM [facility] CBC AND DIFF (AUTO) Specimen Type: BLOOD No comment entered. Ordering Provider: OLIVA PEGUERO Report Released Date/Time: Sep 26, 2023 06:56 PM Reporting Lab: [address] [address] Performing Lab: [address] [address] WBC 6.28 10*3/uL 4.50-11.00 RBC 4.75 10*6/uL 4.23-5.66 HGB 12.0 g/dL L 12.8-17 HCT 38.4 L 39.2-50.4 MCV 80.8 fL L 82-99 MCHC 31.3 g/dL 30.8-35.1 PLT 190 10*3/uL 140-360 RDW-CV 15.2 12.0-16.0 [place], Abs 0.56 10*3/uL 0.30-1.10 MCH 25.3 pg L 26.2-32.6 Neut % 73.1 43.7-75.8 Lymph % 13.5 L 14.0-42.3 [place] % 8.9 5.1-13.7 Eos % 3.7 0.4-6.8 [...] 27, 2023 10:00 AM VA-TOBACCO NEVER USED [facility] Tobacco Use History This section includes a history of the smoking, or tobacco-related health factors, that were collected on or before the date of the Encounter. The data comes from the [place] facility where the Encounter took place. Date/Time Smoking Status/Tobacco Use Comment [place] Jan 06, 2022 09:00 AM VA[place]TO[place]ACCO NEVER USED [place] [facility] Dec 31, 2020 08:00 AM VA-TOBACCO NEVER USED [place] [facility] [...] CNTRL [place] [place] [facility] Advance Directives: All [...] MARINA FAJARDO [place] [facility] Encounter Notes: All associated encounter notes This [...] 10-07-[address] Amin Radiation oncology [facility] Chief complaint: Follow-up esophageal cancer Completed radiation therapy. Getting immunotherapy. Plan: Follow-up 4 months /es/ Oliva Peguero MD Staff Physician Signed: 10/14/2023 13:16 PEGUERO[facility]OLIVA CAB[facility]RL [facility]
--- OUTSIDE RECORDS SUMMARY | 2024-09-21 08:58 | XMS_ITS | Encounter Summary ---
Author Name [place] Address [address] [place] [address] Care Team Providers Care Lab Intern Name Role Phone OLIVA PEGUERO Primary Care [...] Relationship to Policy Root TOMER BOWMANBS OF [facility] [employer] GE Apr 03, 2009 [id number] [phone] FRANCIS MANCIA SPOUSE BCBS [facility] BLUE* Apr 03, 2009 [id number] [phone] BLANCHE, JANET SPOUSE BCBS [facility] [employer] GE Apr 03, 2009 [id number] [phone] FRANCIS MANCIA SPOUSE [employer] S[employer] ([id number]) PRESCRIPT ION L4TA* Apr 03, 2009 L4TA [id number] FRANCIS MANCIA SPOUSE [employer] ([id number]) PRESCRIPT ION L4TA* Apr 03, 2009 L4TA [id number] FRANCIS MANCIA SPOUSE [employer] ([id number]) PRESCRIPT ION Apr 03, 2009 L4TA [id number] FRANCIS MANCIA SPOUSE MEDICARE (WNR) MEDICARE (M) PART B Jun 04, 2020 PART B [id number] RAÚL MANCIA PATIENT MEDICARE (WNR) MEDICARE (M) PART A Oct 04, 2006 PART A [id number] RAÚL MANCIA PATIENT MEDICARE (WNR) MEDICARE (M) PART A Oct 04, 2006 PART A [id number] [phone] RAÚL MANCIA PATIENT Selected Encounter This section includes the information on record at [place] for the Encounter. Date/Time Encounter Type Encounter Description Reason Pro vider Source Nov 10, 2023 07:16 AM Outpatient Encounter COMMUNITY CARE CONSULT IHE Encounter Template Text not used by [place] Plan of Treatment: Future Appointments (+ 6 months) and Future Tests (+/- 45 days) The Plan of Treatment section includes future care activities for the patient from all [place] treatmentfacilities. This section includes future appointments and future orders which are active, pending or scheduled. Future Appointments This section includes appointments that were scheduled to occur 6 months from the date of the Encounter, up to a maximum of 20 appointments. The data comes from all [place] treatment facilities. Appointment Date/Time Appointment Type Appointme nt Facility Name Dec 16, 2023 11:00 AM AM[facility]ULATORY [facility] [place] [facility] Jan 11, 2024 10:00 AM AMBULATORY MEDIC[facility] [place] [facility] Jan 17, 2024 07:30 AM AMBULATORY - [facility]IC[facility] [place] [facility] May 08, 2024 01:00 PM [facility] Active, Pending, and Scheduled Orders This section includes a listing of several types of active, pending, and scheduled orders, including clinic medications orders, diagnostic test orders, procedure orders and consult orders; where the start date of the order is 45 days before the date of the Encounter or 45 days after the date of theEncounter. The data comes from all [place] treatment facilities. Test Date/Time Test Type Test Details Facility Name Oct 01, 2023 12:00 AM Laboratory - Chemistry Order URINALYSIS CLEAN CATCH URINE SP [place] [facility] [facility] Social History: Smoking Status (Most current) and Tobacco Use (All prior to encounter date) This section includes the most current, and the historical, smoking and tobacco- related health factors from the [place] facility where the Encounter took place. Current Smoking Status This section includes the most current smoking, or tobacco-related health factor, from the [place] facility where the Encounter took place. Date/Time Current Smoking Status Comment Facil ity Jan 27, 2023 10:00 AM VA-TOBACCO NEVER [facility] Tobacco Use History This section includes a history of the smoking, or tobacco-related health factors, that were collected on or before the date of the Encounter. The data comes from the [place] facility where the Encounter took place. Date/Time Smoking Status/Tobacco Use Comment F acility Jan 06, 2022 09:00 AM VA-TOBACCO NEVER USED [place] [facility] [place] [place] [facility] Dec 31, 2020 08:00 AM VA-TOBACCO NEVER USED [place] [facility] [place] [facility] Dec 27, 2019 09:48 AM VA-TOBACCO NEVER USED [place] [facility] [place] [facility] Jun 30, 2018 08:41 AM VA-TOBACCO NEVER USED [place] [facility] [place] [place] [facility] Dec 23, 2017 07:46 AM LIFETIME NON-TOBACCO USER [place] [facility] [place] [facility] Dec 22, 2016 08:06 AM LIFETIME NON-TOBACCO USER [place] [facility] [place] [facility] Dec 24, 2015 08:36 AM LIFETIME NON-TOBACCO USER [place] [facility] [place] [facility] Jun 19, 2004 01:52 PM LIFETIME NON-SMOKER [place] [facility] [place] [facility] Jun 19, 2004 01:52 PM LIFETIME NON-TOBACCO USER [place] [facility] [place] [facility] Jun 19, 2004 01:34 PM LIFETIME NON-SMOKER [place] [facility] [place] [facility] Jun 19, 2004 01:34 PM LIFETIME NON-TOBACCO USER [place] [facility] [place] [facility] Advance Directives: All historical and current Section Date Range: From patient's date of to the date document was created. This section includes ALL of a patient's completed or amended [place] Advance and Rescinded Directives. The entries below indicate that a directive exists for the patient, but an actual copy is not included with this document. The data comes from all [place] facilities. Date Advance Directives Provider Source May 20, 2006 ADVANCE DIRECTIVE MARINA FAJARDO IN [facility] Encounter Notes: All associated encounter notes This section contains the clinical notes associated to the Encounter. Date/Time Encounter Note(s) Provider Source Nov 10, 2023 07:16 AM ADMINISTRATIVE NOT E: LOCAL TITLE: ADMINISTRATIVE NOTE STANDARD TITLE: ADMINISTRATIVE NOTE DATE OF NOTE: NOV 10, 2023@07:16 ENTRY DATE: NOV 10, 2023@07:16:38 AUTHOR: ABHINAV SALMON COSIGNER: URGENCY: STATUS: COMPLETED ADMINISTRATIVE NOTE Has ADDENDA [facility] is requesting a continuation of care consult for veterans appt on 10/07/23. Veterans current authoirzation is . if approved please enter a new consult [facility] Radiation Oncology [address] [place] [address] Facility /delores/ ABHINAV SALMON SEAMER OPERATOR Signed: 11/10/2023 07:17 Receipt Acknowledged By: 11/10/2023 08:48 /delores/ Shanon Bowden RN, BSN Primary Care 11/10/2023 08:38 /delores/ Oliva Peguero MD Staff Physician 11/10/2023 ADDENDUM STATUS: COMPLETED Done. /delores/ Oliva Peguero MD Staff Physician Signed: 11/10/2023 08:38 [facility]
--- OUTSIDE RECORDS SUMMARY | 2024-09-21 08:58 | XMS_ITS | Encounter Summary ---
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 Name Role Phone OLIVA PEGUERO Primary Care [...] Policy Root TOMER ROBLES OF [facility] Test[employer]tv GE Apr 03, 2009 [id number] BLANCHE, JANET SPOUSE [facility]* Apr 03, 2009 [id number] [phone] BLANCHE, JANET SPOUSE BCBS [facility] Wandoujia GE Apr 03, 2009 [id number] FRANCIS MANCIA SPOUSE [employer] ([id number]) PRESCRIPT ION L4TA* Apr 03, 2009 L4TA [id number] FRANCIS MANCIA SPOUSE [employer] ([id number]) PRESCRIPT ION L4TA* Apr 03, 2009 L4TA [id number] FRANCIS MANCIA SPOUSE [employer] ([id number]) PRESCRIPT ION Apr 03, 2009 L4TA [id number] FRANCIS MANCIA SPOUSE MEDICARE (WNR) MEDICARE (M) PART B Jun 04, 2020 PART B [id number] RAÚL MANCIA PATIENT MEDICARE (WNR) MEDICARE (M) PART A Oct 04, 2006 PART A [id number] RAÚL MANCIA PATIENT MEDICARE (WNR) MEDICARE (M) PART A Oct 04, 2006 PART A [id number] [phone] RAÚL MANCIA PATIENT Selected Encounter This section includes the information on record at [place] for the Encounter. Date/Time Encounter Type Encounter Description Reason Pro vider Source Nov 25, 2023 09:02 AM Outpatient Encounter PRIMARY CARE/MEDICINE IHE Encounter Template Text not used by [place] Plan of Treatment: Future Appointments (+ 6 months) and Future Tests (+/- 45 days) The Plan of Treatment section includes future care activities for the patient from all [place] treatmentfacilities. This section includes future appointments and future orders which are active, pending or scheduled. Future Appointments This section includes appointments that were scheduled to occur 6 months from the date of the Encounter, up to a maximum of 20 appointments. The data comes from all [place] treatment facilities. Appointment Date/Time Appointment Type Appointme nt Facility Name Dec 16, 2023 11:00 AM AMBULATORY - MEDICINE [facility] NTR [place] [facility] Jan 11, 2024 10:00 AM AMBULATORY MEDICINE [facility] NTRL [place] [facility] Jan 17, 2024 07:30 AM [facility] [place] [facility] May 08, 2024 01:00 PM AMBULATORY MEDICINE [facility] Social History: Smoking Status (Most current) and Tobacco Use (All prior to encounter date) This section includes the most current, and the historical, smoking and tobacco- related health factors from the [place] facility where the Encounter took place. Current Smoking Status This section includes the most current smoking, or tobacco-related health factor, from the [place] facility where the Encounter took place. Date/Time Current Smoking Status Comment Facil ity Jan 27, 2023 10:00 AM [facility] Tobacco Use History This section includes a history of the smoking, or tobacco-related health factors, that were collected on or before the date of the Encounter. The data comes from the [place] facility where the Encounter took place. Date/Time Smoking Status/Tobacco Use Comment F acility Jan 06, 2022 09:00 AM VA-TOBACCO NEVER USED [place] CNTRL [place] [facility] Dec 31, 2020 08:00 AM VA-TOBACCO NEVER USED [facility] [place] [facility] Dec 27, 2019 09:48 AM VA-TOBACCO NEVER USED [facility] [place] [facility] Jun 30, 2018 08:41 AM VA-TOBACCO NEVER USED [facility] CN[facility] [place] [facility] Dec 23, 2017 07:46 AM LIFETIME NON-TOBACCO USER [place] [facility] [place] [facility] Dec 22, 2016 08:06 AM LIFETIME NON-TOBACCO USER [place] [facility] [place] [facility] Dec 24, 2015 08:36 AM LIFETIME NON-TOBACCO USER [facility] [place] [facility] Jun 19, 2004 01:52 PM LIFETIME NON-SMOKER [facility] [place] [facility] Jun 19, 2004 01:52 PM LIFETIME NON-TOBACCO USER [place] [facility] [place] [facility] Jun 19, 2004 01:34 PM LIFETIME NON-SMOKER [place] [facility] [place] [facility] Jun 19, 2004 01:34 PM LIFETIME NON-TOBACCO USER [place] CNTRL [place] [facility] Advance Directives: All historical and current Section Date Range: From patient's date of to the date document was created. This section includes ALL of a patient's completed or amended [place] Advance and Rescinded Directives. The entries below indicate that a directive exists for the patient, but an actual copy is not included with this document. The data comes from all [place] facilities. Date Advance Directives Provider Source May 20, 2006 ADVANCE DIRECTIVE MARINA FAJARDO [place] CNT RL [place] [facility] Encounter Notes: All associated encounter notes This section contains the clinical notes associated to the Encounter. Date/Time Encounter Note(s) Provider Source Nov 25, 2023 09:02 AM NONVA CONSULT: LOCAL TITLE: MD/OUTSIDE CONSULT REPORT SUMMARY STANDARD TITLE: NONVA CONSULT DATE OF NOTE: NOV 25, 2023@09:02 ENTRY DATE: NOV 25, 2023@09:02:15 AUTHOR: OLIVA PEGUERO EXP COSIGNER: URGENCY: STATUS: COMPLETED 11-16-23 [facility] CT chest with contrast Ordered by Dr. Guzman Increasing consolidation of both lungs Increasing mediastinal lymphadenopathy /es/ Oliva Peguero MD Staff Physician Signed: 11/25/2023 09:02 OLIVA PEGUERO [place] CNTRL [facility]N [facility]
--- OUTSIDE RECORDS SUMMARY | 2024-09-21 08:59 | XMS_ITS | Encounter Summary ---
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 Name Role Phone OLIVA PÉREZ Primary Care [...] Relationship to Policy Root TOMER BOWMANBS OF [facility] [employer] GE Apr 03, 2009 [id number] FRANCIS MANCIA SPOUSE BCBS [facility]* Apr 03, 2009 [id number] BLANCHE, JANET SPOUSE BCBS [facility] Swidjit GE Apr 03, 2009 [id number] FRANCIS MANCIA SPOUSE [employer] ([id number]) PRESCRIPT ION L4TA* Apr 03, 2009 L4TA [id number] FRANCIS MANCIA SPOUSE [employer] ([id number]) PRESCRIPT ION L4TA* Apr 03, 2009 L4TA [id number] FRANCIS MANCIA SPOUSE [employer] ([id number]) PRESCRIPT ION Apr 03, 2009 L4TA [id number] FRANCIS MANCIA SPOUSE MEDICARE (WNR) MEDICARE (M) PART B Jun 04, 2020 PART B [id number] [phone] RAÚL MANCIA PATIENT MEDICARE (WNR) MEDICARE (M) PART A Oct 04, 2006 PART A [id number] RAÚL MANCIA PATIENT MEDICARE (WNR) MEDICARE (M) PART A Oct 04, 2006 PART A [id number] RAÚL MANCIA PATIENT Selected Encounter This section includes the information on record at [place] for the Encounter. Date/Time Encounter Type Encounter Description Reason Pro vider Source Oct 11, 2023 12:00 AM Outpatient Encounter COMMUNITY CARE CONSULT IHE Encounter Template Text not used by [place] Plan of Treatment: Future Appointments (+ 6 months) and Future Tests (+/- 45 days) The Plan of Treatment section includes future care activities for the patient from all [place] treatmentfacilities. This section includes future appointments and future orders which are active, pending or scheduled. Future Appointments This section includes appointments that were scheduled to occur 6 months from the date of the Encounter, up to a maximum of 20 appointments. The data comes from all [facility]. Appointment Date/Time Appointment Type Appointme nt Facility Name Dec 16, 2023 11:00 AM AMBULATORY - MEDICINE [facility] Jan 11, 2024 10:00 AM AMBULATORY MEDICINE [facility] Jan 17, 2024 07:30 AM AMBULATORY MEDICINE [facility] Active, Pending, and Scheduled Orders This section includes a listing of several types of active, pending, and scheduled orders, including clinic medications orders, diagnostic test orders, procedure orders and consult orders; where the start date of the order is 45 days before the date of the Encounter or 45 days after the date of theEncounter. The data comes from all [facility]. Test Date/Time Test Type Test Details Facility Name Oct 01, 2023 12:00 AM Laboratory - Chemistry Order URINALYSIS CLEAN CATCH URINE SP [facility] Lab Results: +/- 30 days of the encounter This section includes the Chemistry and Hematology Lab Results on record with [place] for the patient. Radiology Reports and Pathology Reports are provided separately, in subsequent sections. Lab Results This section contains the Chemistry/Hematology Results that were resulted 30 days before or 30 daysafter the date of the Encounter. Date/Time Source Result Type Result - Unit Interpretation Reference Range Comment Oct 01, 2023 07:31 AM [facility] URIC ACID Specimen Type: SERUM No comment entered. Ordering Provider: OLIVA PÉREZ Report Released Date/Time: Sep 26, 2023 06:56 PM Reporting Lab: [address] [address] Performing Lab: [address] [address] URIC ACID 5.6 mg/dL 3.5-7.2 Oct 01, 2023 07:31 AM [facility] TSH Specimen Type: SERUM No comment entered. Ordering Provider: OLIVA PÉREZ Report Released Date/Time: Sep 26, 2023 06:56 PM Reporting Lab: [address] [address] Performing Lab: [address] [address] TSH 1.01 u[IU]/mL 0.35-5.00 Oct 01, 2023 07:31 AM [facility] LIVER FUNCTION Specimen Type: SERUM No comment entered. Ordering Provider: OLIVA PÉREZ Report Released Date/Time: Sep 26, 2023 06:56 PM Reporting Lab: [address] [address] Performing Lab: [address] [address] PROTEIN,TOTAL 6.4 g/dL 6.0-8.3 ALBUMIN 3.7 g/dL 3.5-5.0 ALKALINE PHOSPHATASE 130 U/L 40-150 AST 16 U/L 5-34 ALT 12 U/L BILIRUBIN, TOTAL 0.4 mg/dL 0.2-1.2 Oct 01, 2023 07:31 AM [facility] LIPID PANEL FASTING Specimen Type: SERUM No comment entered. Ordering Provider: OLIVA PÉREZ Report Released Date/Time: Sep 26, 2023 06:56 PM Reporting Lab: [address] [address] Performing Lab: [address] [address] CHOLESTEROL 183 mg/dL TRIGLYCERIDE 104 mg/dL 0-150 LDL calculated 114 mg/dL 0-129 CHOL/HDL 3.8 HDL CHOLESTEROL 48 mg/dL 40-60 Oct 01, 2023 07:31 AM [facility] BASIC METABOLIC PANEL (fasting) Specimen Type: SERUM No comment entered. Ordering Provider: OLIVA PÉREZ Report Released Date/Time: Sep 26, 2023 06:56 PM Reporting Lab: [address] [address] Performing Lab: [address] [address] UREA NITROGEN 25 mg/dL 7-25 GLUCOSE 105 mg/dL H 65-100 SODIUM 139 mmol/L 135-145 POTASSIUM 4.3 mmol/L 3.5-5.0 CHLORIDE 106 mmol/L 100-110 CO2 23 meq/L 20-30 CREATININE, Serum 0.85 mg/dL 0.50-1.40 eGFR(CKD-EPI 2020) 89 mL/min >60 Oct 01, 2023 07:31 AM [facility] CBC AND DIFF (AUTO) Specimen Type: BLOOD No comment entered. Ordering Provider: OLIVA PÉREZ Report Released Date/Time: Sep 26, 2023 06:56 PM Reporting Lab: [address] [address] Performing Lab: [address] [address] WBC 6.28 10*3/uL 4.50-11.00 RBC 4.75 10*6/uL 4.23-5.66 HGB 12.0 g/dL L 12.8-17 HCT 38.4 L 39.2-50.4 MCV 80.8 fL L 82-99 MCHC 31.3 g/dL 30.8-35.1 PLT 190 10*3/uL 140-360 RDW-CV 15.2 12.0-16.0 [place], Abs 0.56 10*3/uL 0.30-1.10 MCH 25.3 pg L 26.2-32.6 Neut % 73.1 43.7-75.8 Lymph % 13.5 L 14.0-42.3 [place] % 8.9 5.1-13.7 Eos % 3.7 0.4-6.8 [...] and tobacco- related health factors from the [place] facility where the Encounter took place. Current Smoking Status This section includes the most current smoking, or tobacco-related health factor, from the [place] facility where the Encounter took place. Date/Time Current Smoking Status Comment Ronald vaz Jan 27, 2023 10:00 AM [facility] Tobacco Use History This section includes a history of the smoking, or tobacco-related health factors, that were collected on or before the date of the Encounter. The data comes from the [place] facility where the Encounter took place. Date/Time Smoking Status/Tobacco Use Comment F otis Jan 06, 2022 09:00 AM VA-TOBACCO NEVER USED [place] [facility] Dec 31, 2020 08:00 AM VA-TOBACCO NEVER USED [place] CNTR [place] [facility] Dec 27, 2019 09:48 AM VA-TOBACCO NEVER USED [place] CNTRL [place] [facility] Jun 30, 2018 08:41 AM VA-TOBACCO NEVER USED [place] CNTRL [place] [facility] Dec 23, 2017 07:46 AM LIFETIME NON-TOBACCO USER [place] [facility] [place] [facility] Dec 22, 2016 08:06 AM LIFETIME NON-TOBACCO USER [place] [facility] [place] [facility] Dec 24, 2015 08:36 AM LIFETIME NON-TOBACCO USER [place] [facility] [place] [facility] Jun 19, 2004 01:52 PM LIFETIME NON-SMOKER VA CNTRL [place] [facility] Jun 19, 2004 01:52 PM LIFETIME NON-TOBACCO USER [place] CN[facility]L [place] [facility] Jun 19, 2004 01:34 PM LIFETIME NON-SMOKER [place] CN[facility]L [place] [facility] Jun 19, 2004 01:34 PM LIFETIME NON-TOBACCO USER [place] [facility] [place] [facility] Advance Directives: All historical and current Section Date Range: From patient's date of to the date document was created. This section includes ALL of a patient's completed or amended [place] Advance and Rescinded Directives. The entries below indicate that a directive exists for the patient, but an actual copy is not included with this document. The data comes from all [place] facilities. Date Advance Directives Provider Source May 20, 2006 ADVANCE DIRECTIVE MARINA FAJARDO [place] [facility] Encounter Notes: All associated encounter notes [...] REQUIRED Electronically Filed: 12/25/2023 by: ISABEL SLOAN CHART COLLECTOR ISABEL SLOAN [place] CNTRL [place] [facility]
--- OUTSIDE RECORDS SUMMARY | 2024-09-21 08:59 | XMS_ITS ---
Author Name [place] Address [address] [place] [address] Care Team Providers Care Bobbin Cleaner Name Role Phone OLIVA PEGUERO Primary Care [...] Policy Root TOMER BOWMANBS OF [facility] Proteopure GE Apr 03, 2009 [id number] [phone] FRANCIS MANCIA SPOUSE [facility]UE* Apr 03, 2009 [id number] BLANCHE, JANET SPOUSE BCBS [facility] [employer] GE Apr 03, 2009 [id number] FRANCIS MANCIA SPOUSE [employer] ([id number]) PRESCRIPT ION L4TA* Apr 03, 2009 L4TA [id number] FRANCIS MANCIA SPOUSE [employer] ([id number]) PRESCRIPT ION L4TA* Apr 03, 2009 L4TA [id number] FRANCIS MANCIA SPOUSE [employer] ([id number]) PRESCRIPT ION Apr 03, 2009 L4TA [id number] FRANCIS MANCIA SPOUSE MEDICARE (WNR) MEDICARE (M) PART B Jun 04, 2020 PART B [id number] RAÚL MANCIA PATIENT MEDICARE (WNR) MEDICARE (M) PART A Oct 04, 2006 PART A [id number] RAÚL MANCIA PATIENT MEDICARE (WNR) MEDICARE (M) PART A Oct 04, 2006 PART A [id number] RAÚL MANCIA PATIENT Selected Encounter This [...] 11, 2024 10:00 AM [facility] Jan 17, 2024 07:30 AM AMBULATORY - MEDICINE [facility]L [place] [facility] May 08, 2024 01:00 PM AMBULATORY MEDICINE [facility] NTR [place] [facility] May 30, 2024 03:30 PM AMBULATORY MEDIC[facility] Lab Results: +/- 30 days of [...] Range Comment Jan 05, 2024 07:30 AM [facility] URIC ACID Specimen Type: SERUM No comment entered. Ordering Provider: OLIVA PEGUERO Report Released Date/Time: Dec 31, 2023 11:06 AM Reporting Lab: [address] [address] Performing Lab: [address] [address] URIC ACID 5.3 mg/dL 3.5-7.2 Jan 05, 2024 07:30 AM [facility] URINALYSIS CLEAN CATCH Specimen Type: URINE Comment: If Glucose = >500 and Ketones are positive, please alert the Physician. Ordering Provider: OLIVA PEGUERO Report Released Date/Time: Dec 31, 2023 11:06 AM Reporting Lab: [address] [address] Performing Lab: [address] [address] UA COLOR Light-Yellow Yellow UA APPEARANCE Clear Clear UA GLUCOSE NEGATIVE mg/dL Negative UA KETONES NEGATIVE mg/dL Negative UA BLOOD NEGATIVE mg/dL Negative UA PROTEIN NEGATIVE mg/dL Negative UA NITRITE NEGATIVE mg/dL Negative UA BILIRUBIN NEGATIVE mg/dL Negative UA SPECIFIC GRAVITY 1.023 H 1.016-1.022 UA pH 6.5 5.0-9.0 UA UROBILINOGEN <2.0 mg/dL <2.0 UA LEUKOCYTE NEGATIVE Negative Jan 05, 2024 07:30 AM [facility] BASIC METABOLIC PANEL (fasting) Specimen Type: SERUM No comment entered. Ordering Provider: OLIVA PEGUERO Report Released Date/Time: Dec 31, 2023 11:06 AM Reporting Lab: [address] [address] Performing Lab: [address] [address] UREA NITROGEN 21 mg/dL 7-25 GLUCOSE 116 mg/dL H 65-100 SODIUM 139 mmol/L 135-145 POTASSIUM 4.3 mmol/L 3.5-5.0 CHLORIDE 104 mmol/L 100-110 CO2 24 meq/L 20-30 CREATININE, Serum 0.90 mg/dL 0.50-1.40 eGFR(CKD-EPI 2020) 88 mL/min >60 Jan 05, 2024 07:30 AM [facility] LIVER FUNCTION Specimen Type: SERUM No comment entered. Ordering Provider: OLIVA PEGUERO Report Released Date/Time: Dec 31, 2023 11:06 AM Reporting Lab: [facility] [address] [facility] [address] Performing Lab: [address] [address] PROTEIN,TOTAL 6.2 g/dL 6.0-8.3 ALBUMIN 2.9 g/dL L 3.5-5.0 ALKALINE PHOSPHATASE 234 U/L H 40-150 AST 18 U/L 5-34 ALT 16 U/L BILIRUBIN, TOTAL 0.4 mg/dL 0.2-1.2 Jan 05, 2024 07:30 AM [facility] TSH Specimen Type: SERUM No comment entered. Ordering Provider: OLIVA PEGUERO Report Released Date/Time: Dec 31, 2023 11:06 AM Reporting Lab: [facility] [address] [facility] [address] Performing Lab: [address] [address] TSH 3.18 u[IU]/mL 0.35-5.00 Jan 05, 2024 07:30 AM [facility] LIPID PANEL FASTING Specimen Type: SERUM No comment entered. Ordering Provider: OLIVA PEGUERO Report Released Date/Time: Dec 31, 2023 11:06 AM Reporting Lab: [address] [address] Performing Lab: [address] [address] CHOLESTEROL 164 mg/dL TRIGLYCERIDE 112 mg/dL 0-150 LDL calculated 110 mg/dL 0-129 CHOL/HDL 5.1 HDL CHOLESTEROL 32 mg/dL L 40-60 Jan 05, 2024 07:30 AM [facility] CBC AND DIFF (AUTO) Specimen Type: BLOOD No comment entered. Ordering Provider: OLIVA PEGUERO Report Released Date/Time: Dec 31, 2023 11:06 AM Reporting Lab: [facility] [address] [facility] [address] Performing Lab: [facility] [address] [facility] [address] WBC 7.18 10*3/uL 4.50-11.00 RBC 5.04 10*6/uL 4.23-5.66 HGB 12.4 g/dL L 12.8-17 HCT 39.0 L 39.2-50.4 MCV 77.4 fL L 82-99 MCHC 31.8 g/dL 30.8-35.1 PLT 324 10*3/uL 140-360 RDW-CV 15.2 12.0-16.0 [place], Abs 0.67 10*3/uL 0.30-1.10 MCH 24.6 pg L 26.2-32.6 Neut % 79.5 H 43.7-75.8 Lymph % 10.6 L 14.0-42.3 [place] % 9.3 5.1-13.7 Eos % 0.0 L [...] VA-TOBACCO NEVER USED [facility] Tobacco Use History This section includes a history of the smoking, or tobacco-related health factors, that were collected on or before the date of the Encounter. The data comes from the [place] facility where the Encounter took place. Date/Time Smoking Status/Tobacco Use Comment F acility Jan 06, 2022 09:00 AM VA-TOBACCO NEVER USED [place] [place] [facility] Dec 31, 2020 08:00 AM VA-TOBACCO NEVER USED [place] [facility] [place] [facility] Dec 27, 2019 09:48 AM VA-TOBACCO NEVER USED [place] [place] [facility] Jun 30, 2018 08:41 AM VA-TOBACCO NEVER USED [place] [facility] [place] [facility] Dec 23, 2017 07:46 AM LIFETIME NON-TOBACCO USER [place] [facility] [place] [facility] Dec 22, 2016 08:06 AM LIFETIME NON-TOBACCO USER [place] [facility] [place] [facility] Dec 24, 2015 08:36 AM LIFETIME NON-TOBACCO USER [place] [facility] [place] [facility] Jun 19, 2004 01:52 PM LIFETIME NON-SMOKER [place] [facility] [place] [facility] Jun 19, 2004 01:52 PM LIFETIME NON-TOBACCO USER [place] [facility] [place] [facility] Jun 19, 2004 01:34 PM LIFETIME NON-SMOKER [place] [facility] [place] [facility] Jun 19, 2004 01:34 PM LIFETIME NON-TOBACCO USER [place]TRL [place] [facility] Advance Directives: All historical and current Section Date Range: From patient's date of to the date document was created. This section includes ALL of a patient's completed or amended [place] Advance and Rescinded Directives. The entries below indicate that a directive exists for the patient, but an actual copy is not included with this document. The data comes from all [place] facilities. Date Advance Directives Provider Source May 20, 2006 ADVANCE DIRECTIVE MARINA FAJARDO [place] CNT [place] [facility] Encounter Notes: All associated encounter notes This section contains the clinical notes associated to the Encounter. Date/Time Encounter Note(s) Provider Source Dec 17, 2023 08:43 AM ADMINISTRATIVE NOTE: LOCAL TITLE: ADMINISTRATIVE NOTE STANDARD TITLE: ADMINISTRATIVE NOTE DATE OF NOTE: DEC 17, 2023@08:43 ENTRY DATE: DEC 17, 2023@08:43:41 AUTHOR: FRANK MCCABE COSIGNER: URGENCY: STATUS: COMPLETED ADMINISTRATIVE NOTE Has ADDENDA was referred to [facility] by Dr. Guzman, Oncology (under [place] CC onc consult) for abnormal CT,pna, nodule [...] Staff Physician Signed: 12/17/2023 17:46 FRANK MCCABE [facility]
--- OUTSIDE RECORDS SUMMARY | 2024-09-21 08:59 | XMS_ITS ---
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 Hand Method Name Role Phone OLIVA PEGUERO Primary Care [...] Policy Root TOMER ROBLES OF [facility] [employer] GE Apr 03, 2009 [id number] BLANCHE, JANET SPOUSE BCBS [facility] BLUE* Apr 03, 2009 [id number] BLANCHE, JANET SPOUSE BCBS [facility] [employer] GE Apr 03, 2009 [id number] FRANCIS MANCIA SPOUSE [employer] ([id number]) PRESCRIPT ION L4TA* Apr 03, 2009 L4TA [id number] FRANCIS MANCIA SPOUSE [employer] ([id number]) PRESCRIPT ION L4TA* Apr 03, 2009 L4TA [id number] FRANCIS MANCIA SPOUSE [employer] ([id number]) PRESCRIPT ION Apr 03, 2009 L4TA [id number] FRANCIS MANCIA SPOUSE MEDICARE (WNR) MEDICARE (M) PART B Jun 04, 2020 PART B [id number] RAÚL MANCIA PATIENT MEDICARE (WNR) MEDICARE (M) PART A Oct 04, 2006 PART A [id number] RAÚL MANCIA PATIENT MEDICARE (WNR) MEDICARE (M) PART A Oct 04, 2006 PART A [id number] [phone] RAÚL MANCIA PATIENT Selected Encounter This section includes the information on record at [place] for the Encounter. Date/Time Encounter Type Encounter Description Reason Pro vider Source Dec 07, 2023 10:54 AM Outpatient Encounter PRIMARY CARE/MEDICINE IHE Encounter Template Text not used by [place] Plan of Treatment: Future Appointments (+ 6 months) and Future Tests (+/- 45 days) The Plan of Treatment section includes future care activities for the patient from all [place] treatmentfacilities. This section includes future appointments and future orders which are active, pending or scheduled. Future Appointments This section includes appointments that were scheduled to occur 6 months from the date of the Encounter, up to a maximum of 20 appointments. The data comes from all [place] treatment facilities. Appointment Date/Time Appointment Type Appointme nt Facility Name Dec 16, 2023 11:00 AM AMBULATORY - MEDICINE [facility] [place] [facility] Jan 11, 2024 10:00 AM AMBULATORY - MEDICINE [facility] [place] [facility] Jan 17, 2024 07:30 AM AMBULATORY - MEDICINE [facility] [facility] May 08, 2024 01:00 PM AMBULATORY - MEDICINE [facility] [place] [facility] May 30, 2024 03:30 PM AMBULATORY - MEDICINE [facility] [place] [facility] Lab Results: +/- 30 days of the encounter This section includes the Chemistry and Hematology Lab Results on record with [place] for the patient. Radiology Reports and Pathology Reports are provided separately, in subsequent sections. Lab Results This section contains the Chemistry/Hematology Results that were resulted 30 days before or 30 daysafter the date of the Encounter. Date/Time Source Result Type Result - Unit Interpretation Reference Range Comment Jan 05, 2024 07:30 AM [facility] URIC ACID Specimen Type: SERUM No comment entered. Ordering Provider: OLIVA PEGUERO Report Released Date/Time: Dec 31, 2023 11:06 AM Reporting Lab: [facility] [address] [facility] [address] Performing Lab: [address] [address] URIC ACID 5.3 mg/dL 3.5-7.2 Jan 05, 2024 07:30 AM [facility] URINALYSIS CLEAN CATCH Specimen Type: URINE Comment: If Glucose = >500 and Ketones are positive, please alert the Physician. Ordering Provider: OLIVA PEGUERO Report Released Date/Time: Dec 31, 2023 11:06 AM Reporting Lab: [facility] [address] [facility] [address] Performing Lab: [address] [address] UA COLOR Light-Yellow Yellow UA APPEARANCE Clear Clear UA GLUCOSE NEGATIVE mg/dL Negative UA KETONES NEGATIVE mg/dL Negative UA BLOOD NEGATIVE mg/dL Negative UA PROTEIN NEGATIVE mg/dL Negative UA NITRITE NEGATIVE mg/dL Negative UA BILIRUBIN NEGATIVE mg/dL Negative UA SPECIFIC GRAVITY 1.023 H 1.016-1.022 UA pH 6.5 5.0-9.0 UA UROBILINOGEN <2.0 mg/dL <2.0 UA LEUKOCYTE NEGATIVE Negative Jan 05, 2024 07:30 AM [facility] LIPID PANEL FASTING Specimen Type: SERUM No comment entered. Ordering Provider: OLIVA PEGUERO Report Released Date/Time: Dec 31, 2023 11:06 AM Reporting Lab: [facility] [address] [facility] [address] Performing Lab: [address] [address] CHOLESTEROL 164 mg/dL TRIGLYCERIDE 112 mg/dL 0-150 LDL calculated 110 mg/dL 0-129 CHOL/HDL 5.1 HDL CHOLESTEROL 32 mg/dL L 40-60 Jan 05, 2024 07:30 AM [facility] LIVER FUNCTION Specimen Type: SERUM No comment entered. Ordering Provider: OLIVA PEGUERO Report Released Date/Time: Dec 31, 2023 11:06 AM Reporting Lab: [facility] [address] [facility] [address] Performing Lab: [facility] [address] [facility] [address] PROTEIN,TOTAL 6.2 g/dL 6.0-8.3 ALBUMIN 2.9 g/dL L 3.5-5.0 ALKALINE PHOSPHATASE 234 U/L H 40-150 AST 18 U/L 5-34 ALT 16 U/L BILIRUBIN, TOTAL 0.4 mg/dL 0.2-1.2 Jan 05, 2024 07:30 AM [facility] TSH Specimen Type: SERUM No comment entered. Ordering Provider: OLIVA PEGUERO Report Released Date/Time: Dec 31, 2023 11:06 AM Reporting Lab: [facility] [address] [facility] [address] Performing Lab: [facility] [address] [facility] [address] TSH 3.18 u[IU]/mL 0.35-5.00 Jan 05, 2024 07:30 AM [facility] BASIC METABOLIC PANEL (fasting) Specimen Type: SERUM No comment entered. Ordering Provider: OLIVA PEGUERO Report Released Date/Time: Dec 31, 2023 11:06 AM Reporting Lab: [facility] [address] [facility] [address] Performing Lab: [address] [address] UREA NITROGEN 21 mg/dL 7-25 GLUCOSE 116 mg/dL H 65-100 SODIUM 139 mmol/L 135-145 POTASSIUM 4.3 mmol/L 3.5-5.0 CHLORIDE 104 mmol/L 100-110 CO2 24 meq/L 20-30 CREATININE, Serum 0.90 mg/dL 0.50-1.40 eGFR(CKD-EPI 2020) 88 mL/min >60 Jan 05, 2024 07:30 AM [facility] CBC AND DIFF (AUTO) Specimen Type: BLOOD No comment entered. Ordering Provider: OLIVA PEGUERO Report Released Date/Time: Dec 31, 2023 11:06 AM Reporting Lab: [facility] [address] [facility] [address] Performing Lab: [facility] [address] [facility] [address] WBC 7.18 10*3/uL 4.50-11.00 RBC 5.04 10*6/uL 4.23-5.66 HGB 12.4 g/dL L 12.8-17 HCT 39.0 L 39.2-50.4 MCV 77.4 fL L 82-99 MCHC 31.8 g/dL 30.8-35.1 PLT 324 10*3/uL 140-360 RDW-CV 15.2 12.0-16.0 Garza, Abs 0.67 10*3/uL 0.30-1.10 MCH 24.6 pg L 26.2-32.6 Neut % 79.5 H 43.7-75.8 Lymph % 10.6 L 14.0-42.3 Garza % 9.3 5.1-13.7 Eos % 0.0 L [...] and tobacco- related health factors from the [place] facility where the Encounter took place. Current Smoking Status This section includes the most current smoking, or tobacco-related health factor, from the [place] facility where the Encounter took place. Date/Time Current Smoking Status Comment Facil ity Jan 27, 2023 10:00 AM VA-TOBACCO NEVER USED [place] [facility] Tobacco Use History This section includes a history of the smoking, or tobacco-related health factors, that were collected on or before the date of the Encounter. The data comes from the [place] facility where the Encounter took place. Date/Time Smoking Status/Tobacco Use Comment F acility Jan 06, 2022 09:00 AM VA-TOBACCO NEVER USED [place] [facility] [place] [facility] Dec 31, 2020 08:00 AM VA-TOBACCO NEVER USED [facility] [place] [facility] Dec 27, 2019 09:48 AM VA-TOBACCO NEVER USED [facility] [place] [facility] Jun 30, 2018 08:41 AM VA-TOBACCO NEVER USED [facility] [place] [facility] Dec 23, 2017 07:46 AM LIFETIME NON-TOBACCO USER [place] [facility] [place] [facility] Dec 22, 2016 08:06 AM LIFETIME NON-TOBACCO USER [facility] [place] [facility] Dec 24, 2015 08:36 AM LIFETIME NON-TOBACCO USER [place] [facility] [place] [facility] Jun 19, 2004 01:52 PM LIFETIME NON-SMOKER [place] [facility] [place] [facility] Jun 19, 2004 01:52 PM LIFETIME NON-TOBACCO USER [place] [facility] Jun 19, 2004 01:34 PM LIFETIME NON-SMOKER [place] [facility] [place] [facility] Jun 19, 2004 01:34 PM LIFETIME NON[place]TOBACCO [place]ER [place] [facility] Advance Directives: All historical and current Section Date Range: From patient's date of to the date document was created. This section includes ALL of a patient's completed or amended [place] Advance and Rescinded Directives. The entries below indicate that a directive exists for the patient, but an actual copy is not included with this document. The data comes from all [place] facilities. Date Advance Directives Provider Source May 20, 2006 ADVANCE DIRECTIVE MARINA FAJARDO [place] [facility] Encounter Notes: All associated encounter notes This section contains the clinical notes associated to the Encounter. Date/Time Encounter Note(s) Provider Source Dec 07, 2023 10:54 AM NONVA CONSULT: LOCAL TITLE: MD/OUTSIDE CONSULT REPORT SUMMARY STANDARD TITLE: NONVA CONSULT DATE OF NOTE: DEC 07, 2023@10:54 ENTRY DATE: DEC 07, 2023@10:55:02 AUTHOR: OLIVA PEGUERO EXP COSIGNER: URGENCY: STATUS: COMPLETED 11-23-[address] Guzman [facility] Chief complaint: Follow-up esophageal cancer Has received radiation therapy and chemotherapy Patient had appointment thoracic surgery Dr. Stevenson to discuss surgery. Patient did not go to the appointment. Pulmonary infiltrates infectious, treat with Augmentin and doxycycline Patient declining surgery Plan: Follow-up 6 weeks /delores/ Oliva Peguero MD Staff Physician Signed: 12/07/2023 10:55 OLIVA PEGUERO [place] [facility] [facility]
--- OUTSIDE RECORDS SUMMARY | 2024-09-21 08:59 | XMS_ITS ---
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 Name Role Phone OLIVA PÉREZ Primary Care [...] Relationship to Policy Root TOMER BOWMANBS OF [facility] [employer] GE Apr 03, 2009 [id number] [phone] FRANCIS MANCIA SPOUSE [facility]* Apr 03, 2009 [id number] BLANCHE, JANET SPOUSE BCBS [facility] [employer] GE Apr 03, 2009 [id number] [phone] FRANCIS MANCIA SPOUSE [employer] ([id number]) PRESCRIPT ION L4TA* Apr 03, 2009 L4TA [id number] FRANCIS MANCIA SPOUSE [employer] ([id number]) PRESCRIPT ION L4TA* Apr 03, 2009 L4TA [id number] FRANCIS MANCIA SPOUSE [employer] ([id number]) PRESCRIPT ION Apr 03, 2009 L4TA [id number] FRANCIS MANCIA SPOUSE MEDICARE (WNR) MEDICARE (M) PART B Jun 04, 2020 PART B [id number] RAÚL MANCIA PATIENT MEDICARE (WNR) MEDICARE (M) PART A Oct 04, 2006 PART A [id number] [phone] RAÚL MANCIA PATIENT MEDICARE (WNR) MEDICARE (M) PART A Oct 04, 2006 PART A [id number] RAÚL MANCIA PATIENT Selected Encounter This section includes the information on record at [place] for the Encounter. Date/Time Encounter Type Encounter Description Reason Pro vider Source Dec 16, 2023 12:00 AM Outpatient Encounter COMMUNITY CARE CONSULT IHE Encounter Template Text not used by [place] Plan of Treatment: Future Appointments (+ 6 months) and Future Tests (+/- 45 days) The Plan of Treatment section includes future care activities for the patient from all [place] treatmentfacilities. This section includes future appointments and future orders which are active, pending or scheduled. Future Appointments This section includes appointments that were scheduled to occur 6 months from the date of the Encounter, up to a maximum of 20 appointments. The data comes from all [place] treatment facilities. Appointment Date/Time Appointment Type Appointme nt Facility Name Jan 11, 2024 10:00 AM [facility] Jan 17, 2024 07:30 AM AMBULATORY MEDICINE [facility] [place] [facility] May 08, 2024 01:00 PM AMBULATORY MEDICINE [facility] [place] [facility] May 30, 2024 03:30 PM [facility] Lab Results: +/- 30 days of the encounter This section includes the Chemistry and Hematology Lab Results on record with [place] for the patient. Radiology Reports and Pathology Reports are provided separately, in subsequent sections. Lab Results This section contains the Chemistry/Hematology Results that were resulted 30 days before or 30 daysafter the date of the Encounter. Date/Time Source Result Type Result - Unit Interpretation Reference Range Comment Jan 05, 2024 07:30 AM [facility] URIC ACID Specimen Type: SERUM No comment entered. Ordering Provider: OLIVA PÉREZ Report Released Date/Time: Dec 31, 2023 11:06 AM Reporting Lab: [facility] [address] [facility] [address] Performing Lab: [address] [address] URIC ACID 5.3 mg/dL 3.5-7.2 Jan 05, 2024 07:30 AM [facility] URINALYSIS CLEAN CATCH Specimen Type: URINE Comment: If Glucose = >500 and Ketones are positive, please alert the Physician. Ordering Provider: OLIVA PÉREZ Report Released Date/Time: Dec 31, 2023 11:06 AM Reporting Lab: [address] [address] Performing Lab: [address] [address] UA COLOR Light-Yellow Yellow UA APPEARANCE Clear Clear UA GLUCOSE NEGATIVE mg/dL Negative UA KETONES NEGATIVE mg/dL Negative UA BLOOD NEGATIVE mg/dL Negative UA PROTEIN NEGATIVE mg/dL Negative UA NITRITE NEGATIVE mg/dL Negative UA BILIRUBIN NEGATIVE mg/dL Negative UA SPECIFIC GRAVITY 1.023 H 1.016-1.022 UA pH 6.5 5.0-9.0 UA UROBILINOGEN <2.0 mg/dL <2.0 UA LEUKOCYTE NEGATIVE Negative Jan 05, 2024 07:30 AM [facility] LIVER FUNCTION Specimen Type: SERUM No comment entered. Ordering Provider: OLIVA PÉREZ Report Released Date/Time: Dec 31, 2023 11:06 AM Reporting Lab: [address] [address] Performing Lab: [address] [address] PROTEIN,TOTAL 6.2 g/dL 6.0-8.3 ALBUMIN 2.9 g/dL L 3.5-5.0 ALKALINE PHOSPHATASE 234 U/L H 40-150 AST 18 U/L 5-34 ALT 16 U/L BILIRUBIN, TOTAL 0.4 mg/dL 0.2-1.2 Jan 05, 2024 07:30 AM [facility] BASIC METABOLIC PANEL (fasting) Specimen Type: SERUM No comment entered. Ordering Provider: OLIVA PÉREZ Report Released Date/Time: Dec 31, 2023 11:06 AM Reporting Lab: [facility] [address] [facility] [address] Performing Lab: [address] [address] UREA NITROGEN 21 mg/dL 7-25 GLUCOSE 116 mg/dL H 65-100 SODIUM 139 mmol/L 135-145 POTASSIUM 4.3 mmol/L 3.5-5.0 CHLORIDE 104 mmol/L 100-110 CO2 24 meq/L 20-30 CREATININE, Serum 0.90 mg/dL 0.50-1.40 eGFR(CKD-EPI 2020) 88 mL/min >60 Jan 05, 2024 07:30 AM [facility] LIPID PANEL FASTING Specimen Type: SERUM No comment entered. Ordering Provider: OLIVA PÉREZ Report Released Date/Time: Dec 31, 2023 11:06 AM Reporting Lab: [facility] [address] [facility] [address] Performing Lab: [address] [address] CHOLESTEROL 164 mg/dL TRIGLYCERIDE 112 mg/dL 0-150 LDL calculated 110 mg/dL 0-129 CHOL/HDL 5.1 HDL CHOLESTEROL 32 mg/dL L 40-60 Jan 05, 2024 07:30 AM [facility] TSH Specimen Type: SERUM No comment entered. Ordering Provider: OLIVA PÉREZ Report Released Date/Time: Dec 31, 2023 11:06 AM Reporting Lab: [facility] [address] [facility] [address] Performing Lab: [address] [address] TSH 3.18 u[IU]/mL 0.35-5.00 Jan 05, 2024 07:30 AM [facility] CBC AND DIFF (AUTO) Specimen Type: BLOOD No comment entered. Ordering Provider: OLIVA PÉREZ Report Released Date/Time: Dec 31, 2023 11:06 AM Reporting Lab: [facility] [address] [facility] [address] Performing Lab: [facility] [address] [facility] [address] WBC 7.18 10*3/uL 4.50-11.00 RBC 5.04 10*6/uL 4.23-5.66 HGB 12.4 g/dL L 12.8-17 HCT 39.0 L 39.2-50.4 MCV 77.4 fL L 82-99 MCHC 31.8 g/dL 30.8-35.1 PLT 324 10*3/uL 140-360 RDW-CV 15.2 12.0-16.0 Roosevelt, Abs 0.67 10*3/uL 0.30-1.10 MCH 24.6 pg L 26.2-32.6 Neut % 79.5 H 43.7-75.8 Lymph % 10.6 L 14.0-42.3 Roosevelt % 9.3 5.1-13.7 Eos % 0.0 L [...] and tobacco- related health factors from the [place] facility where the Encounter took place. Current Smoking Status This section includes the most current smoking, or tobacco-related health factor, from the [place] facility where the Encounter took place. Date/Time Current Smoking Status Comment Facil ity Jan 27, 2023 10:00 AM [facility] Tobacco Use History This section includes a history of the smoking, or tobacco-related health factors, that were collected on or before the date of the Encounter. The data comes from the [place] facility where the Encounter took place. Date/Time Smoking Status/Tobacco Use Comment F acility Jan 06, 2022 09:00 AM VA-TOBACCO NEVER USED [place] [facility] [place] [facility] Dec 31, 2020 08:00 AM VA-TOBACCO NEVER USED [place] [facility] [place] [facility] Dec 27, 2019 09:48 AM VA-TOBACCO NEVER USED [facility] [place] [facility] Jun 30, 2018 08:41 AM VA-TOBACCO NEVER USED [facility] [place] [facility] Dec 23, 2017 07:46 AM LIFETIME NON-TOBACCO USER [place] [facility] [place] [facility] Dec 22, 2016 08:06 AM LIFETIME NON-TOBACCO USER [facility] [place] [facility] Dec 24, 2015 08:36 AM LIFETIME NON-TOBACCO USER [facility] [place] [facility] Jun 19, 2004 01:52 PM LIFETIME NON-SMOKER [place] [facility] [place] [facility] Jun 19, 2004 01:52 PM LIFETIME NON-TOBACCO USER [place] [facility] [place] [facility] Jun 19, 2004 01:34 PM LIFETIME NON-SMOKER [place] [facility] [place] [facility] Jun 19, 2004 01:34 PM LIFETIME NON-TOBACCO USER [place] [facility] Advance Directives: All historical and current Section Date Range: From patient's date of to the date document was created. This section includes ALL of a patient's completed or amended [place] Advance and Rescinded Directives. The entries below indicate that a directive exists for the patient, but an actual copy is not included with this document. The data comes from all [place] facilities. Date Advance Directives Provider Source May 20, 2006 ADVANCE DIRECTIVE MARINA FAJARDO [place] [facility] Encounter Notes: All associated encounter [...] REQUIRED Electronically Filed: 12/25/2023 by: ISABEL SLOAN STRING WINDING MACHINE OPERATOR ISABEL SLOAN [place] [facility]
--- OUTSIDE RECORDS SUMMARY | 2024-09-21 08:59 | XMS_ITS | Encounter Summary ---
Author Name Department of Veter[facility] [place] [facility] [place]) Organization [facility] of [place] Address [address] [place] [id number] Care Team Providers Care Case Checker Name Role Phone OLIVA PÉREZ Primary Care [...] Relationship to Policy Root TOMER BOWMANBS OF [facility] [employer] GE Apr 03, 2009 [id number] FRANCIS MANCIA SPOUSE BCBS [facility]* Apr 03, 2009 [id number] BLANCHE, JANET SPOUSE BCBS [facility] [employer] GE Apr 03, 2009 [id number] FRANCIS MANCIA SPOUSE EXPRESS SCRIPTS ([id number]) PRESCRIPT ION L4TA* Apr 03, 2009 L4TA [id number] FRANCIS MANCIA SPOUSE [employer] ([id number]) PRESCRIPT ION L4TA* Apr 03, 2009 L4TA [id number] FRANCIS MANCIA SPOUSE [employer] ([id number]) PRESCRIPT ION Apr 03, 2009 L4TA [id number] FRANCIS MANCIA SPOUSE MEDICARE (WNR) MEDICARE (M) PART B Jun 04, 2020 PART B [id number] [phone] RAÚL MANCIA PATIENT MEDICARE (WNR) MEDICARE (M) PART A Oct 04, 2006 PART A [id number] RAÚL MANCIA PATIENT MEDICARE (WNR) MEDICARE (M) PART A Oct 04, 2006 PART A [id number] RAÚL MANCIA PATIENT Selected Encounter This section includes the information on record at OR for the Encounter. Date/Time Encounter Type Encounter Description Reason Pro vider Source Nov 16, 2023 12:00 AM Outpatient Encounter COMMUNITY CARE CONSULT IHE Encounter Template Text not used by VA Plan of Treatment: Future Appointments (+ 6 months) and Future Tests (+/- 45 days) The Plan of Treatment section includes future care activities for the patient from all OR treatmentfacilities. This section includes future appointments and future orders which are active, pending or scheduled. Future Appointments This section includes appointments that were scheduled to occur 6 months from the date of the Encounter, up to a maximum of 20 appointments. The data comes from all OR treatment facilities. Appointment Date/Time Appointment Type Appointme nt Facility Name Dec 16, 2023 11:00 AM [facility] Jan 11, 2024 10:00 AM [facility] [place] [facility] Jan 17, 2024 07:30 AM [facility] May 08, 2024 01:00 PM [facility] Social History: Smoking Status (Most current) and Tobacco Use (All prior to encounter date) This section includes the most current, and the historical, smoking and tobacco- related health factors from the OR facility where the Encounter took place. Current Smoking Status This section includes the most current smoking, or tobacco-related health factor, from the OR facility where the Encounter took place. Date/Time Current Smoking Status Comment Ronald ity Jan 27, 2023 10:00 AM [facility] Tobacco Use History This section includes a history of the smoking, or tobacco-related health factors, that were collected on or before the date of the Encounter. The data comes from the OR facility where the Encounter took place. Date/Time Smoking Status/Tobacco Use Comment F acility Jan 06, 2022 09:00 AM VA-TOBACCO NEVER USED [facility] [place] [facility] Dec 31, 2020 08:00 AM VA-TOBACCO NEVER USED [facility] [place] [facility] Dec 27, 2019 09:48 AM VA-TOBACCO NEVER USED [facility] [place] [facility] Jun 30, 2018 08:41 AM VA-TOBACCO NEVER USED VA CNTRL [facility] [place] [facility] Dec 23, 2017 07:46 AM LIFETIME NON-TOBACCO USER VA CNTRL [facility] [place] [facility] Dec 22, 2016 08:06 AM LIFETIME NON-TOBACCO USER [facility] [place] [facility] Dec 24, 2015 08:36 AM LIFETIME NON-TOBACCO USER [facility] [place] [facility] Jun 19, 2004 01:52 PM LIFETIME NON-SMOKER VA CNTRL [facility] [place] [facility] Jun 19, 2004 01:52 PM LIFETIME NON-TOBACCO USER VA CNTRL [facility] [facility] Jun 19, 2004 01:34 PM LIFETIME NON-SMOKER VA CNTRL [place] [facility] Jun 19, 2004 01:34 PM LIFETIME NON-TOBACCO USER [place] CNTRL [place] [facility] Advance Directives: All historical and current Section Date Range: From patient's date of to the date document was created. This section includes ALL of a patient's completed or amended OR Advance and Rescinded Directives. The entries below indicate that a directive exists for the patient, but an actual copy is not included with this document. The data comes from all OR facilities. Date Advance Directives Provider Source May 20, 2006 ADVANCE DIRECTIVE MARINA FAJARDO [place] CNT RL [place] [facility] Encounter Notes: All associated encounter notes This [...] REQUIRED Electronically Filed: 11/30/2023 by: MARILIN AUGUSTIN CHEMISTRY LAB INSTRUCTOR MARILIN AUGUSTIN OR CNTRL [facility]
--- OUTSIDE RECORDS SUMMARY | 2024-09-21 08:59 | XMS_ITS | Encounter Summary ---
Author Name Department of [place] Organization [place] Address [address] [place] [address] Care Team Providers Care Senior Clinical Project Manager Name Role Phone OLIVA PÉREZ Primary [...] Relationship to Policy Root TOMER [facility]MANBS OF [facility] [employer] GE Apr 03, 2009 [id number] FRANCIS MANCIA SPOUSE BCBS [facility] BLUE* Apr 03, 2009 [id number] [phone] BLANCHE, JANET SPOUSE BCBS [facility] [id number] GE Apr 03, 2009 [id number] FRANCIS MANCIA SPOUSE [employer] ([id number]) PRESCRIPT ION L4TA* Apr 03, 2009 L4TA [id number] FRANCIS MANCIA SPOUSE [employer] ([id number]) PRESCRIPT ION L4TA* Apr 03, 2009 L4TA [id number] FRANCIS MANCIA SPOUSE [employer] ([id number]) PRESCRIPT ION Apr 03, 2009 L4TA [id number] FRANCIS MANCIA SPOUSE MEDICARE (WNR) MEDICARE (M) PART B Jun 04, 2020 PART B [id number] [phone] RAÚL MANCIA PATIENT MEDICARE (WNR) MEDICARE (M) PART A Oct 04, 2006 PART A [id number] RAÚL MANCIA PATIENT MEDICARE (WNR) MEDICARE (M) PART A Oct 04, 2006 PART A [id number] RAÚL MANCIA PATIENT Selected Encounter This [...] 16, 2023 11:00 AM [facility] Jan 11, 2024 10:00 AM [facility] [place] [facility] Jan 17, 2024 07:30 AM [facility] May 08, 2024 01:00 PM [facility] Social History: Smoking Status (Most [...] 10:00 AM VA[facility]BACCO [facility] Tobacco Use History This section includes a history of the smoking, or tobacco-related health factors, that were collected on or before the date of the Encounter. The data comes from the [place] facility where the Encounter took place. Date/Time Smoking Status/Tobacco Use Comment F acility Jan 06, 2022 09:00 AM VA-TOBACCO NEVER USED VA CNTRL [place] [facility] Dec 31, 2020 08:00 AM VA-TOBACCO NEVER USED VA CNTRL [place] [facility] Dec 27, 2019 09:48 AM VA-TOBACCO NEVER USED VA CNTRL [place] [facility] Jun 30, 2018 08:41 AM VA-TOBACCO NEVER USED VA CNTRL [place] [facility] Dec 23, 2017 07:46 AM LIFETIME NON-TOBACCO USER VA CNTRL [place] [facility] Dec 22, 2016 08:06 AM LIFETIME NON-TOBACCO USER VA CNTRL [place] [facility] Dec 24, 2015 08:36 AM LIFETIME NON-TOBACCO USER VA CNTRL [place] [facility] Jun 19, 2004 01:52 PM LIFETIME NON-SMOKER VA CNTRL [place] [facility] Jun 19, 2004 01:52 PM LIFETIME NON-TOBACCO USER VA CNTRL [place] [facility] Jun 19, 2004 01:34 PM LIFETIME NON-SMOKER VA CNTRL [place] [facility] Jun 19, 2004 01:34 PM LIFETIME NON-TOBACCO USER AR CNTRL [place] [facility] Advance Directives: All historical and current Section [...] DIRECTIVE MARINA FAJARDO AR CNT RL [place] [facility] Encounter Notes: All associated encounter notes This [...] REQUIRED Electronically Filed: 12/10/2023 by: BEN ROSENTHAL RADIAGRAPH OPERATOR BEN ROSENTHAL AR CNTL WSTRN [facility]
--- OUTSIDE RECORDS SUMMARY | 2024-09-21 08:59 | XMS_ITS ---
Author Name Department of Veter[place] Organization Department of [place] Address [address] [place] [address] Care Team Providers Care Dry Kiln Burner Name Role Phone OLIVA PEGUERO Primary Care [...] Relationship to Policy Root TOMER ROBLES OF [facility] [employer] GE Apr 03, 2009 [id number] BLANCHE, JANET SPOUSE [facility]UE* Apr 03, 2009 [id number] [phone] BLANCHE, JANET SPOUSE BCBS [facility] [employer] GE Apr 03, 2009 [id number] FRANCIS MANCIA SPOUSE EXPRESS SCRIPTS ([id number]) PRESCRIPT ION L4TA* Apr 03, 2009 L4TA [id number] FRANCIS MANCIA SPOUSE [employer] ([id number]) PRESCRIPT ION L4TA* Apr 03, 2009 L4TA [id number] FRANCIS MANCIA SPOUSE [employer] ([id number]) PRESCRIPT ION Apr 03, 2009 L4TA [id number] FRANCIS MANCIA SPOUSE MEDICARE (WNR) MEDICARE (M) PART B Jun 04, 2020 PART B [id number] RAÚL MANCIA PATIENT MEDICARE (WNR) MEDICARE (M) PART A Oct 04, 2006 PART A [id number] RAÚL MANCIA PATIENT MEDICARE (WNR) MEDICARE (M) PART A Oct 04, 2006 PART A [id number] RAÚL MANCIA PATIENT Selected Encounter This section includes the information on record at [place] for the Encounter. Date/Time Encounter Type Encounter Description Reason Pro vider Source Dec 21, 2023 02:27 PM Outpatient Encounter PRIMARY CARE/MEDICINE IHE Encounter Template Text not used by [place] Plan of Treatment: Future Appointments (+ 6 months) and Future Tests (+/- 45 days) The Plan of Treatment section includes future care activities for the patient from all [place] treatmentfacilities. This section includes future appointments and future orders which are active, pending or scheduled. Future Appointments This section includes appointments that were scheduled to occur 6 months from the date of the Encounter, up to a maximum of 20 appointments. The data comes from all [place] treatment facilities. Appointment Date/Time Appointment Type Appointme nt Facility Name Jan 11, 2024 10:00 AM AMBULATORY - [facility] [place] [facility] Jan 17, 2024 07:30 AM AMBULATORY MEDICINE [facility] [place] [facility] May 08, 2024 01:00 PM AMBULATORY MEDICINE [facility]TR [place] [facility] May 30, 2024 03:30 PM AM[facility]ULATORY [facility] Lab Results: +/- 30 days of the encounter This section includes the Chemistry and Hematology Lab Results on record with [place] for the patient. Radiology Reports and Pathology Reports are provided separately, in subsequent sections. Lab Results This section contains the Chemistry/Hematology Results that were resulted 30 days before or 30 daysafter the date of the Encounter. Date/Time Source Result Type Result - Unit Interpretation Reference Range Comment Jan 05, 2024 07:30 AM [facility] URIC ACID Specimen Type: SERUM No comment entered. Ordering Provider: OLIVA PEGUERO Report Released Date/Time: Dec 31, 2023 11:06 AM Reporting Lab: [facility] [address] [facility] [address] Performing Lab: [address] [address] URIC ACID 5.3 mg/dL 3.5-7.2 Jan 05, 2024 07:30 AM [facility] URINALYSIS CLEAN CATCH Specimen Type: URINE Comment: If Glucose = >500 and Ketones are positive, please alert the Physician. Ordering Provider: OLIVA PEGUERO Report Released Date/Time: Dec 31, 2023 11:06 AM Reporting Lab: [address] [address] Performing Lab: [address] [address] UA COLOR Light-Yellow Yellow UA APPEARANCE Clear Clear UA GLUCOSE NEGATIVE mg/dL Negative UA KETONES NEGATIVE mg/dL Negative UA BLOOD NEGATIVE mg/dL Negative UA PROTEIN NEGATIVE mg/dL Negative UA NITRITE NEGATIVE mg/dL Negative UA BILIRUBIN NEGATIVE mg/dL Negative UA SPECIFIC GRAVITY 1.023 H 1.016-1.022 UA pH 6.5 5.0-9.0 UA UROBILINOGEN <2.0 mg/dL <2.0 UA LEUKOCYTE NEGATIVE Negative Jan 05, 2024 07:30 AM [facility] BASIC METABOLIC PANEL (fasting) Specimen Type: SERUM No comment entered. Ordering Provider: OLIVA PEGUERO Report Released Date/Time: Dec 31, 2023 11:06 AM Reporting Lab: [address] [address] Performing Lab: [address] [address] UREA NITROGEN 21 mg/dL 7-25 GLUCOSE 116 mg/dL H 65-100 SODIUM 139 mmol/L 135-145 POTASSIUM 4.3 mmol/L 3.5-5.0 CHLORIDE 104 mmol/L 100-110 CO2 24 meq/L 20-30 CREATININE, Serum 0.90 mg/dL 0.50-1.40 eGFR(CKD-EPI 2020) 88 mL/min >60 Jan 05, 2024 07:30 AM [facility] LIPID PANEL FASTING Specimen Type: SERUM No comment entered. Ordering Provider: OLIVA PEGUERO Report Released Date/Time: Dec 31, 2023 11:06 AM Reporting Lab: [facility] [address] [facility] [address] Performing Lab: [address] [address] CHOLESTEROL 164 mg/dL TRIGLYCERIDE 112 mg/dL 0-150 LDL calculated 110 mg/dL 0-129 CHOL/HDL 5.1 HDL CHOLESTEROL 32 mg/dL L 40-60 Jan 05, 2024 07:30 AM [facility] LIVER FUNCTION Specimen Type: SERUM No comment entered. Ordering Provider: OLIVA PEGUERO Report Released Date/Time: Dec 31, 2023 11:06 AM Reporting Lab: [address] [address] Performing Lab: [address] [address] PROTEIN,TOTAL 6.2 g/dL 6.0-8.3 ALBUMIN 2.9 g/dL L 3.5-5.0 ALKALINE PHOSPHATASE 234 U/L H 40-150 AST 18 U/L 5-34 ALT 16 U/L BILIRUBIN, TOTAL 0.4 mg/dL 0.2-1.2 Jan 05, 2024 07:30 AM [facility] TSH Specimen Type: SERUM No comment entered. Ordering Provider: OLIVA PEGUERO Report Released Date/Time: Dec 31, 2023 11:06 AM Reporting Lab: [facility] [address] [facility] [address] Performing Lab: [address] [address] TSH 3.18 u[IU]/mL 0.35-5.00 Jan 05, 2024 07:30 AM [facility] CBC AND DIFF (AUTO) Specimen Type: BLOOD No comment entered. Ordering Provider: OLIVA PEGUERO Report Released Date/Time: Dec 31, 2023 11:06 AM Reporting Lab: [facility] [address] [facility] [address] Performing Lab: [facility] [address] [facility] [address] WBC 7.18 10*3/uL 4.50-11.00 RBC 5.04 10*6/uL 4.23-5.66 HGB 12.4 g/dL L 12.8-17 HCT 39.0 L 39.2-50.4 MCV 77.4 fL L 82-99 MCHC 31.8 g/dL 30.8-35.1 PLT 324 10*3/uL 140-360 RDW-CV 15.2 12.0-16.0 Brown, Abs 0.67 10*3/uL 0.30-1.10 MCH 24.6 pg L 26.2-32.6 Neut % 79.5 H 43.7-75.8 Lymph % 10.6 L 14.0-42.3 Brown % 9.3 5.1-13.7 Eos % 0.0 L [...] and tobacco- related health factors from the [place] facility where the Encounter took place. Current Smoking Status This section includes the most current smoking, or tobacco-related health factor, from the [place] facility where the Encounter took place. Date/Time Current Smoking Status Comment Facil ity Jan 27, 2023 10:00 AM VA-TOBACCO NEVER USED [place] [facility] Tobacco Use History This section includes a history of the smoking, or tobacco-related health factors, that were collected on or before the date of the Encounter. The data comes from the [place] facility where the Encounter took place. Date/Time Smoking Status/Tobacco Use Comment F acility Jan 06, 2022 09:00 AM VA-TOBACCO NEVER USED VA CNTRL [place] [facility] Dec 31, 2020 08:00 AM VA-TOBACCO NEVER USED VA CNTRL [place] [facility] Dec 27, 2019 09:48 AM VA-TOBACCO NEVER USED VA CNTRL [place] [facility] Jun 30, 2018 08:41 AM VA-TOBACCO NEVER USED VA CNTRL [place] [facility] Dec 23, 2017 07:46 AM LIFETIME NON-TOBACCO USER VA CNTRL [place] [facility] Dec 22, 2016 08:06 AM LIFETIME NON-TOBACCO USER VA CNTRL [place] [facility] Dec 24, 2015 08:36 AM LIFETIME NON-TOBACCO USER VA CNTRL [place] [facility] Jun 19, 2004 01:52 PM LIFETIME NON-SMOKER VA CNTRL [place] [facility] Jun 19, 2004 01:52 PM LIFETIME NON-TOBACCO USER [place] CNTRL [place] [facility] Jun 19, 2004 01:34 PM LIFETIME NON-SMOKER [place] CNTRL [place] [facility] Jun 19, 2004 01:34 PM LIFETIME NON-TOBACCO USER [place] CNTRL [place] [facility] Advance Directives: All historical and current Section Date Range: From patient's date of to the date document was created. This section includes ALL of a patient's completed or amended [place] Advance and Rescinded Directives. The entries below indicate that a directive exists for the patient, but an actual copy is not included with this document. The data comes from all [place] facilities. Date Advance Directives Provider Source May 20, 2006 ADVANCE DIRECTIVE MARINA FAJARDO [place] CNT RL [place] [facility] Encounter Notes: All associated encounter notes This section contains the clinical notes associated to the Encounter. Date/Time Encounter Note(s) Provider Source Dec 21, 2023 02:27 PM NONVA CONSULT: LOCAL TITLE: MD/OUTSIDE CONSULT REPORT SUMMARY STANDARD TITLE: NONVA CONSULT DATE OF NOTE: DEC 21, 2023@14:27 ENTRY DATE: DEC 21, 2023@14:27:07 AUTHOR: OLIVA PEGUERO EXP COSIGNER: URGENCY: STATUS: COMPLETED 12-16-23 office visit [facility] [place] [facility] Chief complaint: Abnormal CAT scan airspace disease Suspicious for infection Treated with Augmentin and doxycycline Plan: Follow-up CAT scan in 6 weeks // Oliva Peguero MD Staff Physician Signed: 12/21/2023 14:27 OLIVA PEGUERO [place] [facility]
--- OUTSIDE RECORDS SUMMARY | 2024-09-21 09:00 | XMS_ITS ---
Author Name [place] Address [address] [place] [address] Care Team Providers Care Technical Customer Support Specialist Name Role Phone OLIVA PEGUERO Primary Care [...] Policy Root TOMER BOWMANBS OF [facility] [employer] GE Apr 03, 2009 [id number] BLANCHEFRANCIS HERNANDEZ SPOUSE BCBS [facility] BLUE* Apr 03, 2009 [id number] BLANCHE, JANET SPOUSE BCBS [facility] [employer] GE Apr 03, 2009 [id number] [phone] FRANCIS MANCIA SPOUSE [employer] ([id number]) PRESCRIPT ION L4TA* Apr 03, 2009 L4TA [id number] FRANCIS MANCIA SPOUSE [employer] ([id number]) PRESCRIPT ION L4TA* Apr 03, 2009 L4TA [id number] FRANCIS MANCIA SPOUSE [employer] ([id number]) PRESCRIPT ION Apr 03, 2009 L4TA [id number] FRANCIS MANCIA SPOUSE MEDICARE (WNR) MEDICARE (M) PART B Jun 04, 2020 PART B [id number] ARÚL MANCIA PATIENT MEDICARE (WNR) MEDICARE (M) PART A Oct 04, 2006 PART A [id number] RAÚL MANCIA PATIENT MEDICARE (WNR) MEDICARE (M) PART A Oct 04, 2006 PART A [id number] [phone] RAÚL MANCIA PATIENT Selected Encounter This section includes the information on record at [place] for the Encounter. Date/Time Encounter Type Encounter Description Reason Provider Source Jan 11, 2024 10:00 AM OFFICE O/P EST LOW 20 MIN PRIMARY CARE/MEDICINE ICD-10-CM C15.9 Malignant neoplasm of esophagus, unspecified OLIVA PEGUERO [facility] Encounter Template Text not used by [place] Assessments - Encounter Diagnoses This section includes the primary and secondary diagnoses documented for the Encounter. Date/Time Primary/Secondary Diagnosis Diagnosis Name Provider Source Jan 11, 2024 10:31 AM PRIMARY Malignant neoplasm of esophagus, unspecified OLIVA PEGUERO [facility] [place] [facility] Jan 11, 2024 10:31 AM SECONDARY Essential (primary) hypertension [facility] [place] [facility] Plan of Treatment: Future Appointments (+ 6 [...] 17, 2024 07:30 AM AMBULATORY - MEDICINE [facility] NTR [facility] [place] [facility] May 08, 2024 01:00 PM AMBULATORY MEDICINE [facility] NTRL [facility] [place] [facility] May 30, 2024 03:30 PM AMBULATORY - MEDICINE [facility] Lab Results: +/- 30 days of the encounter This section includes the Chemistry and Hematology Lab Results on record with [place] for the patient. Radiology Reports and Pathology Reports are provided separately, in subsequent sections. Lab Results This section contains the Chemistry/Hematology Results that were resulted 30 days before or 30 daysafter the date of the Encounter. Date/Time Source Result Type Result - Unit Interpretation Reference Range Comment Jan 05, 2024 07:30 AM [facility] URIC ACID Specimen Type: SERUM No comment entered. Ordering Provider: OLIVA PEGUERO Report Released Date/Time: Dec 31, 2023 11:06 AM Reporting Lab: [address] [address] Performing Lab: [address] [address] URIC ACID 5.3 mg/dL 3.5-7.2 Jan 05, 2024 07:30 AM [facility] URINALYSIS CLEAN CATCH Specimen Type: URINE Comment: If Glucose = >500 and Ketones are positive, please alert the Physician. Ordering Provider: OLIVA PEGUERO Report Released Date/Time: Dec 31, 2023 11:06 AM Reporting Lab: [address] [address] Performing Lab: [address] [address] UA COLOR Light-Yellow Yellow UA APPEARANCE Clear Clear UA GLUCOSE NEGATIVE mg/dL Negative UA KETONES NEGATIVE mg/dL Negative UA BLOOD NEGATIVE mg/dL Negative UA PROTEIN NEGATIVE mg/dL Negative UA NITRITE NEGATIVE mg/dL Negative UA BILIRUBIN NEGATIVE mg/dL Negative UA SPECIFIC GRAVITY 1.023 H 1.016-1.022 UA pH 6.5 5.0-9.0 UA UROBILINOGEN <2.0 mg/dL <2.0 UA LEUKOCYTE NEGATIVE Negative Jan 05, 2024 07:30 AM [facility] BASIC METABOLIC PANEL (fasting) Specimen Type: SERUM No comment entered. Ordering Provider: OLIVA PEGUERO Report Released Date/Time: Dec 31, 2023 11:06 AM Reporting Lab: [facility] [address] [address] Performing Lab: [address] [address] UREA NITROGEN 21 mg/dL 7-25 GLUCOSE 116 mg/dL H 65-100 SODIUM 139 mmol/L 135-145 POTASSIUM 4.3 mmol/L 3.5-5.0 CHLORIDE 104 mmol/L 100-110 CO2 24 meq/L 20-30 CREATININE, Serum 0.90 mg/dL 0.50-1.40 eGFR(CKD-EPI 2020) 88 mL/min >60 Jan 05, 2024 07:30 AM [facility] LIVER FUNCTION Specimen Type: SERUM No comment entered. Ordering Provider: OLIVA PEGUERO Report Released Date/Time: Dec 31, 2023 11:06 AM Reporting Lab: [address] [address] Performing Lab: [address] [address] PROTEIN,TOTAL 6.2 g/dL 6.0-8.3 ALBUMIN 2.9 g/dL L 3.5-5.0 ALKALINE PHOSPHATASE 234 U/L H 40-150 AST 18 U/L 5-34 ALT 16 U/L BILIRUBIN, TOTAL 0.4 mg/dL 0.2-1.2 Jan 05, 2024 07:30 AM [facility] TSH Specimen Type: SERUM No comment entered. Ordering Provider: OLIVA PEGUERO Report Released Date/Time: Dec 31, 2023 11:06 AM Reporting Lab: [address] [address] Performing Lab: [address] [address] TSH 3.18 u[IU]/mL 0.35-5.00 Jan 05, 2024 07:30 AM [facility] LIPID PANEL FASTING Specimen Type: SERUM No comment entered. Ordering Provider: OLIVA PEGUERO Report Released Date/Time: Dec 31, 2023 11:06 AM Reporting Lab: [facility] [address] [facility] [address] Performing Lab: [facility] [address] [address] CHOLESTEROL 164 mg/dL TRIGLYCERIDE 112 mg/dL 0-150 LDL calculated 110 mg/dL 0-129 CHOL/HDL 5.1 HDL CHOLESTEROL 32 mg/dL L 40-60 Jan 05, 2024 07:30 AM [facility] CBC AND DIFF (AUTO) Specimen Type: BLOOD No comment entered. Ordering Provider: OLIVA PEGUERO Report Released Date/Time: Dec 31, 2023 11:06 AM Reporting Lab: [facility] [address] [facility] [address] Performing Lab: [facility] [address] [facility] [address] WBC 7.18 10*3/uL 4.50-11.00 RBC 5.04 10*6/uL 4.23-5.66 HGB 12.4 g/dL L 12.8-17 HCT 39.0 L 39.2-50.4 MCV 77.4 fL L 82-99 MCHC 31.8 g/dL 30.8-35.1 PLT 324 10*3/uL 140-360 RDW-CV 15.2 12.0-16.0 Blanco, Abs 0.67 10*3/uL 0.30-1.10 MCH 24.6 pg L 26.2-32.6 Neut % 79.5 H 43.7-75.8 Lymph % 10.6 L 14.0-42.3 Blanco % 9.3 5.1-13.7 Eos % 0.0 L [...] 186 25 [facility] [place] [facility] Social History: Smoking Status (Most [...] NEVER USED [facility] [place] [facility] Tobacco Use History This section includes a history of the smoking, or tobacco-related health factors, that were collected on or before the date of the Encounter. The data comes from the [place] facility where the Encounter took place. Date/Time Smoking Status/Tobacco Use Comment F acility Jan 27, 2023 10:00 AM VA-TOBACCO NEVER USED [facility] [place] [facility] Jan 06, 2022 09:00 AM VA-TOBACCO NEVER USED [facility] [place] [facility] Dec 31, 2020 08:00 AM VA-TOBACCO NEVER USED [facility] [place] [facility] Dec 27, 2019 09:48 AM VA-TOBACCO NEVER USED [facility] [place] [facility] Jun 30, 2018 08:41 AM VA-TOBACCO NEVER USED [facility] [place] [facility] Dec 23, 2017 07:46 AM LIFETIME NON-TOBACCO USER [facility] [place] [facility] Dec 22, 2016 08:06 AM LIFETIME NON-TOBACCO USER [facility] [place] [facility] Dec 24, 2015 08:36 AM LIFETIME NON-TOBACCO USER [facility] [place] [facility] Jun 19, 2004 01:52 PM LIFETIME NON-SMOKER [facility] [place] [facility] Jun 19, 2004 01:52 PM LIFETIME NON-TOBACCO USER [facility] [place] [facility] Jun 19, 2004 01:34 PM LIFETIME [facility]MOK[facility] Jun 19, 2004 01:34 PM [facility] Advance Directives: All historical and current Section Date Range: From patient's date of to the date document was created. This section includes ALL of a patient's completed or amended [place] Advance and Rescinded Directives. The entries below indicate that a directive exists for the patient, but an actual copy is not included with this document. The data comes from all [place] facilities. Date Advance Directives Provider Source May 20, 2006 ADVANCE DIRECTIVE MARINA FAJARDO [facility] Encounter Notes: All associated encounter notes This [...] SLEEPING 3) FEED BAG W/GRAVTY SET ENFIT COVID#[id number] USE 1 ACTIVE GRAVITY BAG TOPICALLY ONCE DAILY FOR NUTRITION 4) GAUZE PAD 4IN X 4IN NONSTERILE APPLY GAUZE(S) ACTIVE TOPICALLY ONCE DAILY 5) GUAIFENESIN 600MG SA TAB TAKE ONE TABLET BY MOUTH ACTIVE TWICE DAILY NEEDED FOR COUGH FOLLOW DOSE WITH FULL GLASS OF WATER 6) IRRIGATION KIT W/PISTON SYRINGE K#[id number] USE 1 ACTIVE IRRIGATION KIT DIRECTED EVERY [...] ENFIT CONNECTOR 10) AMAIRANI SULLIVAN ENTERAL,ICU MEDICAL #1640 USE 1 VALVE ACTIVE ONCE A WEEK Remote Medications: No Active 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 Follow Up Colonoscopy: Colonoscopy is due based on information available to this reminder. Colorectal cancer screening/surveillance will be stopped. Reason: No personal or family history of colon cancer or polyps /delores/ Oliva Peguero MD Staff Physician Signed: 01/11/2024 10:31 OLIVA PEGUERO [facility] Jan 11, 2024 10:02 AM PREVENTIVE MEDICIN E NURSING NOTE: LOCAL TITLE: CLINICAL REMINDERS/NURSING STANDARD TITLE: PREVENTIVE MEDICINE NURSING NOTE DATE OF NOTE: JAN 11, 2024@10:02 ENTRY DATE: JAN 11, 2024@10:02:14 AUTHOR: FAB [place] EXP COSIGNER: URGENCY: STATUS: COMPLETED Advance Directive Screen MH AD: Patient has an Advance Directive on file at this [facility]. No updates are needed at this time. The patient received education about Advance Directives and written notification of his/her rights. Tobacco Use Screening: The patient has never used tobacco. /delores/ FAB FRANCE LPN License Practical Nurse Signed: 01/11/2024 10:02 FAB FRANCE [facility]
--- OUTSIDE RECORDS SUMMARY | 2024-09-21 09:00 | XMS_ITS ---
Author Name [place] Address [address] [place] [address] Care Team Providers Care Residential Manager Name Role Phone OLIVA PÉREZ Primary [...] Policy Root TOMER BOWMANBS OF [facility] Tr[employer] GE Apr 03, 2009 [id number] BLANCHE, JANET SPOUSE BCBS [facility] BLUE* Apr 03, 2009 [id number] [phone] BLANCHE, JANET SPOUSE BCBS [facility] [employer] GE Apr 03, 2009 [id number] FRANCIS MANCIA SPOUSE [employer] ([id number]) PRESCRIPT ION L4TA* Apr 03, 2009 L4TA [id number] FRANCIS MANCIA SPOUSE [employer] ([id number]) PRESCRIPT ION L4TA* Apr 03, 2009 L4TA [id number] FRANCIS MANCIA SPOUSE [employer] ([id number]) PRESCRIPT ION Apr 03, 2009 L4TA [id number] [phone] FRANCIS MANCIA SPOUSE MEDICARE (WNR) MEDICARE (M) PART B Jun 04, 2020 PART B [id number] [phone] RAÚL MANCIA PATIENT MEDICARE (WNR) MEDICARE (M) PART A Oct 04, 2006 PART A [id number] RAÚL MANCIA PATIENT MEDICARE (WNR) MEDICARE (M) PART A Oct 04, 2006 PART A [id number] [phone] RAÚL MANCIA PATIENT Selected Encounter This section includes the information on record at [place] for the Encounter. Date/Time Encounter Type Encounter Description Reason Provider Source Jan 17, 2024 08:15 AM FIT SPECTACLES MONOFOCAL OPTOMETRY ICD-10-CM Z46.0 Encounter for fit/adjst of spectacles and contact lenses CLARISSA RIVERA Tonie Encounter Template Text not used by [place] Assessments - Encounter Diagnoses This section includes the primary and secondary diagnoses documented for the Encounter. Date/Time Primary/Secondary Diagnosis Diagnosis Name Provider Source Jan 17, 2024 08:15 AM PRIMARY Encounter for fit/adjst of spectacles and contact lenses NKECHI KENYON [facility] [place] [facility] Plan of Treatment: Future Appointments (+ 6 months) and Future Tests (+/- 45 days) The Plan of Treatment section includes future care activities for the patient from all [place] treatmentfacilities. This section includes future appointments and future orders which are active, pending or scheduled. Future Appointments This section includes appointments that were scheduled to occur 6 months from the date of the Encounter, up to a maximum of 20 appointments. The data comes from all [place] treatment facilities. Appointment Date/Time Appointment Type Appointme nt Facility Name May 08, 2024 01:00 PM AMBULATORY - MEDICINE [facility] N[facility]L [place] [place] [facility] May 30, 2024 03:30 PM AMBULATORY - MEDICINE [facility] NTR [place] [facility] Lab Results: +/- 30 days of the encounter This section includes the Chemistry and Hematology Lab Results on record with [place] for the patient. Radiology Reports and Pathology Reports are provided separately, in subsequent sections. Lab Results This section contains the Chemistry/Hematology Results that were resulted 30 days before or 30 daysafter the date of the Encounter. Date/Time Source Result Type Result - Unit Interpretation Reference Range Comment Jan 05, 2024 07:30 AM [facility] URIC ACID Specimen Type: SERUM No comment entered. Ordering Provider: OLIVA PÉREZ Report Released Date/Time: Dec 31, 2023 11:06 AM Reporting Lab: [address] [address] Performing Lab: [address] [address] URIC ACID 5.3 mg/dL 3.5-7.2 Jan 05, 2024 07:30 AM [facility] URINALYSIS CLEAN CATCH Specimen Type: URINE Comment: If Glucose = >500 and Ketones are positive, please alert the Physician. Ordering Provider: OLIVA PÉREZ Report Released Date/Time: Dec 31, 2023 11:06 AM Reporting Lab: [address] [address] Performing Lab: [address] [address] UA COLOR Light-Yellow Yellow UA APPEARANCE Clear Clear UA GLUCOSE NEGATIVE mg/dL Negative UA KETONES NEGATIVE mg/dL Negative UA BLOOD NEGATIVE mg/dL Negative UA PROTEIN NEGATIVE mg/dL Negative UA NITRITE NEGATIVE mg/dL Negative UA BILIRUBIN NEGATIVE mg/dL Negative UA SPECIFIC GRAVITY 1.023 H 1.016-1.022 UA pH 6.5 5.0-9.0 UA UROBILINOGEN <2.0 mg/dL <2.0 UA LEUKOCYTE NEGATIVE Negative Jan 05, 2024 07:30 AM [facility] LIVER FUNCTION Specimen Type: SERUM No comment entered. Ordering Provider: OLIVA PÉREZ Report Released Date/Time: Dec 31, 2023 11:06 AM Reporting Lab: [address] [address] Performing Lab: [facility] [address] [facility] [address] PROTEIN,TOTAL 6.2 g/dL 6.0-8.3 ALBUMIN 2.9 g/dL L 3.5-5.0 ALKALINE PHOSPHATASE 234 U/L H 40-150 AST 18 U/L 5-34 ALT 16 U/L BILIRUBIN, TOTAL 0.4 mg/dL 0.2-1.2 Jan 05, 2024 07:30 AM [facility] BASIC METABOLIC PANEL (fasting) Specimen Type: SERUM No comment entered. Ordering Provider: OLIVA PÉREZ Report Released Date/Time: Dec 31, 2023 11:06 AM Reporting Lab: [address] [address] Performing Lab: [address] [address] UREA NITROGEN 21 mg/dL 7-25 GLUCOSE 116 mg/dL H 65-100 SODIUM 139 mmol/L 135-145 POTASSIUM 4.3 mmol/L 3.5-5.0 CHLORIDE 104 mmol/L 100-110 CO2 24 meq/L 20-30 CREATININE, Serum 0.90 mg/dL 0.50-1.40 eGFR(CKD-EPI 2020) 88 mL/min >60 Jan 05, 2024 07:30 AM [facility] LIPID PANEL FASTING Specimen Type: SERUM No comment entered. Ordering Provider: OLIVA PÉREZ Report Released Date/Time: Dec 31, 2023 11:06 AM Reporting Lab: [address] [address] Performing Lab: [address] [address] CHOLESTEROL 164 mg/dL TRIGLYCERIDE 112 mg/dL 0-150 LDL calculated 110 mg/dL 0-129 CHOL/HDL 5.1 HDL CHOLESTEROL 32 mg/dL L 40-60 Jan 05, 2024 07:30 AM [facility] TSH Specimen Type: SERUM No comment entered. Ordering Provider: OLIVA PÉREZ Report Released Date/Time: Dec 31, 2023 11:06 AM Reporting Lab: [address] [address] Performing Lab: [facility] [address] [facility] [facility] [address] TSH 3.18 u[IU]/mL 0.35-5.00 Jan 05, 2024 07:30 AM [facility] CBC AND DIFF (AUTO) Specimen Type: BLOOD No comment entered. Ordering Provider: OLIVA PÉREZ Report Released Date/Time: Dec 31, 2023 11:06 AM Reporting Lab: [facility] [address] [facility] [address] Performing [facility]: [facility] [address] [facility] [address] WBC 7.18 10*3/uL 4.50-11.00 RBC 5.04 10*6/uL 4.23-5.66 HGB 12.4 g/dL L 12.8-17 HCT 39.0 L 39.2-50.4 MCV 77.4 fL L 82-99 MCHC 31.8 g/dL 30.8-35.1 PLT 324 10*3/uL 140-360 RDW-CV 15.2 12.0-16.0 Crook, Abs 0.67 10*3/uL 0.30-1.10 MCH 24.6 pg L 26.2-32.6 Neut % 79.5 H 43.7-75.8 Lymph % 10.6 L 14.0-42.3 Crook % 9.3 5.1-13.7 Eos % 0.0 L [...] and tobacco- related health factors from the [place] facility where the Encounter took place. Current Smoking Status This section includes the most current smoking, or tobacco-related health factor, from the [place] facility where the Encounter took place. Date/Time Current Smoking Status Comment Ronald ity Jan 11, 2024 10:00 AM VA-TOBACCO NEVER USED [place] [place] [facility] Tobacco Use History This section includes a history of the smoking, or tobacco-related health factors, that were collected on or before the date of the Encounter. The data comes from the [place] facility where the Encounter took place. Date/Time Smoking Status/Tobacco Use Comment F acility Jan 27, 2023 10:00 AM VA-TOBACCO NEVER USED [facility] [place] [facility] Jan 06, 2022 09:00 AM VA-TOBACCO NEVER USED [facility] [place] [facility] Dec 31, 2020 08:00 AM VA-TOBACCO NEVER USED [facility] [place] [facility] Dec 27, 2019 09:48 AM VA-TOBACCO NEVER USED [facility] [place] [facility] Jun 30, 2018 08:41 AM VA-TOBACCO NEVER USED [facility] [place] [facility] Dec 23, 2017 07:46 AM LIFETIME NON-TOBACCO USER [facility] [place] [facility] Dec 22, 2016 08:06 AM LIFETIME NON-TOBACCO USER [facility] [place] [facility] Dec 24, 2015 08:36 AM LIFETIME NON-TOBACCO USER [facility] [place] [facility] Jun 19, 2004 01:52 PM LIFETIME NON-SMOKER [facility] [place] [facility] Jun 19, 2004 01:52 PM LIFETIME NON-TOBACCO USER [facility] [place] [facility] Jun 19, 2004 01:34 PM LIFETIME NON-SMOKER [facility] [place] [facility] Jun 19, 2004 01:34 PM LIFETIME NON-TOBACCO USER [facility] [place] [facility] Advance Directives: All historical and current Section Date Range: From patient's date of to the date document was created. This section includes ALL of a patient's completed or amended [place] Advance and Rescinded Directives. The entries below indicate that a directive exists for the patient, but an actual copy is not included with this document. The data comes from all [place] facilities. Date Advance Directives Provider Source May 20, 2006 ADVANCE DIRECTIVE MARINA FAJARDO P [facility] [place] [facility] Encounter Notes: All associated encounter notes This [...] Dir: [email or web address]:0.00 Dir2: FITTING INFORMATION FPD: NPD: Crook:R:31.5 L:29.5 SEG HT:R: L: Tint:None Shade:None VA [...] Dir: [email or web address]:0.00 Dir2: FITTING INFORMATION FPD: NPD: Crook:R:28 L:27 SEG HT:R: L: Tint:None Shade:None [place] Billable Items FRAME: FX3 GUNMETAL 50-20-145 Right Lens: POLY SINGLE VISION 1.586 POLY Left Lens: POLY SINGLE VISION 1.586 POLY /delorse/ HOLLI CASEY BUSINESS RECORDS MANAGER Signed: 01/17/2024 08:19 Receipt Acknowledged By: 01/17/2024 12:34 /delores/ NKECHI KENYON OPTOMETRY TECH 01/17/2024 ADDENDUM STATUS: COMPLETED PDS Lease Picker fit patient with 2 pair(s) of SVO eyeglasses on 01/17/2024. OPT HT entered consult(s) as requested for provider signature. /delores/ NKECHI KENYON OPTOMETRY TECH Signed: 01/17/2024 12:37 HOLLI CASEY CNTRL TRKasie MCQUEEN [facility]
--- OUTSIDE RECORDS SUMMARY | 2024-09-21 09:00 | XMS_ITS ---
Author Name [facility] [place] Address [address] [place] [address] Care Team Providers Care Ceo Ziff Davis Name Role Phone OLIVA PÉREZ Primary Care [...] Policy Root TOMER BOWMANBS OF [facility] ORGANIZ [facility] [employer] GE Apr 03, 2009 [id number] BLANCHE, JANET SPOUSE BCBS [facility] BL[facility]* Apr 03, 2009 [id number] BLANCHE, FRANCIS SPOUSE BCBS [facility] [employer] COLLE GE Apr 03, 2009 [id number] [phone] FRANCIS MANCIA SPOUSE [employer] ([id number]) PRESCRIPT ION L4TA* Apr 03, 2009 L4TA [id number] FRANCIS MANCIA SPOUSE [employer] ([id number]) PRESCRIPT ION L4TA* Apr 03, 2009 L4TA [id number] FRANCIS MANCIA SPOUSE [employer] ([id number]) PRESCRIPT ION Apr 03, 2009 L4TA [id number] FRANCIS MANCIA SPOUSE MEDICARE (WNR) MEDICARE (M) PART B Jun 04, 2020 PART B [id number] RAÚL MANCIA PATIENT MEDICARE (WNR) MEDICARE (M) PART A Oct 04, 2006 PART A [id number] [id number] RAÚL MANCIA PATIENT MEDICARE (WNR) MEDICARE (M) PART A Oct 04, 2006 PART A [id number] RAÚL MANCIA PATIENT Selected Encounter This section includes the information on record at [place] for the Encounter. Date/Time Encounter Type Encounter Description Reason Provider Source Jan 17, 2024 07:30 AM COMPRE OPH EXAM EST PT 1/> OPTOMETRY ICD-10-CM H25.813 Combined forms of age-related cataract, bilateral MERHAR,CLARISSA B IHE Encounter Template Text not used by [place] Assessments - Encounter Diagnoses This section includes the primary and secondary diagnoses documented for the Encounter. Date/Time Primary/Secondary Diagnosis Diagnosis Name Provider Source Jan 17, 2024 07:56 AM PRIMARY Combined forms of age-related cataract, bilateral MERHAR,CLARISSA B [place] [facility] [place] [facility] Jan 17, 2024 07:56 AM SECONDARY Myopia, bilateral MERHAR,CLARISSA [facility] [place] [facility] Plan of Treatment: Future Appointments (+ 6 [...] 08, 2024 01:00 PM AMBULATORY - MEDICINE [facility] N[facility] May 30, 2024 03:30 PM AM[facility]ULATORY - MEDICINE [facility] Lab Results: +/- 30 days [...] Range Comment Jan 05, 2024 07:30 AM [facility] URIC ACID Specimen Type: SERUM No comment entered. Ordering Provider: OLIVA PÉREZ Report Released Date/Time: Dec 31, 2023 11:06 AM Reporting Lab: [address] [address] Performing Lab: [address] [address] URIC ACID 5.3 mg/dL 3.5-7.2 Jan 05, 2024 07:30 AM [facility] URINALYSIS CLEAN CATCH Specimen Type: URINE Comment: If Glucose = >500 and Ketones are positive, please alert the Physician. Ordering Provider: OLIVA PÉREZ Report Released Date/Time: Dec 31, 2023 11:06 AM Reporting Lab: [address] [address] Performing Lab: [address] [address] UA COLOR Light-Yellow Yellow UA APPEARANCE Clear Clear UA GLUCOSE NEGATIVE mg/dL Negative UA KETONES NEGATIVE mg/dL Negative UA BLOOD NEGATIVE mg/dL Negative UA PROTEIN NEGATIVE mg/dL Negative UA NITRITE NEGATIVE mg/dL Negative UA BILIRUBIN NEGATIVE mg/dL Negative UA SPECIFIC GRAVITY 1.023 H 1.016-1.022 UA pH 6.5 5.0-9.0 UA UROBILINOGEN <2.0 mg/dL <2.0 UA LEUKOCYTE NEGATIVE Negative Jan 05, 2024 07:30 AM [facility] BASIC METABOLIC PANEL (fasting) Specimen Type: SERUM No comment entered. Ordering Provider: OLIVA PÉREZ Report Released Date/Time: Dec 31, 2023 11:06 AM Reporting Lab: [facility] [address] [facility] [address] Performing Lab: [facility] [address] [facility] [address] UREA NITROGEN 21 mg/dL 7-25 GLUCOSE 116 mg/dL H 65-100 SODIUM 139 mmol/L 135-145 POTASSIUM 4.3 mmol/L 3.5-5.0 CHLORIDE 104 mmol/L 100-110 CO2 24 meq/L 20-30 CREATININE, Serum 0.90 mg/dL 0.50-1.40 eGFR(CKD-EPI 2020) 88 mL/min >60 Jan 05, 2024 07:30 AM [facility] LIPID PANEL FASTING Specimen Type: SERUM No comment entered. Ordering Provider: OLIVA PÉREZ Report Released Date/Time: Dec 31, 2023 11:06 AM Reporting Lab: [address] [address] Performing Lab: [address] [address] CHOLESTEROL 164 mg/dL TRIGLYCERIDE 112 mg/dL 0-150 LDL calculated 110 mg/dL 0-129 CHOL/HDL 5.1 HDL CHOLESTEROL 32 mg/dL L 40-60 Jan 05, 2024 07:30 AM [facility] LIVER FUNCTION Specimen Type: SERUM No comment entered. Ordering Provider: OLIVA PÉREZ Report Released Date/Time: Dec 31, 2023 11:06 AM Reporting Lab: [address] [address] Performing Lab: [address] [address] PROTEIN,TOTAL 6.2 g/dL 6.0-8.3 ALBUMIN 2.9 g/dL L 3.5-5.0 ALKALINE PHOSPHATASE 234 U/L H 40-150 AST 18 U/L 5-34 ALT 16 U/L BILIRUBIN, TOTAL 0.4 mg/dL 0.2-1.2 Jan 05, 2024 07:30 AM [facility] TSH Specimen Type: SERUM No comment entered. Ordering Provider: OLIVA PÉREZ Report Released Date/Time: Dec 31, 2023 11:06 AM Reporting Lab[facility] [place] [facility] [address] [facility] [address] Performing Lab: [place] [facility] [facility] [address] [facility] [address] TSH 3.18 u[IU]/mL 0.35-5.00 Jan 05, 2024 07:30 AM [facility] CBC AND DIFF (AUTO) Specimen Type: BLOOD No comment entered. Ordering Provider: OLIVA PÉREZ Report Released Date/Time: Dec 31, 2023 11:06 AM Reporting Lab: [facility] [address] [facility] [address] Performing Lab: [facility] [address] [facility] [address] WBC 7.18 10*3/uL 4.50-11.00 RBC 5.04 10*6/uL 4.23-5.66 HGB 12.4 g/dL L 12.8-17 HCT 39.0 L 39.2-50.4 MCV 77.4 fL L 82-99 MCHC 31.8 g/dL 30.8-35.1 PLT 324 10*3/uL 140-360 RDW-CV 15.2 12.0-16.0 [place], Abs 0.67 10*3/uL 0.30-1.10 MCH 24.6 pg L 26.2-32.6 Neut % 79.5 H 43.7-75.8 Lymph % 10.6 L 14.0-42.3 [place] % 9.3 5.1-13.7 Eos % 0.0 L [...] [place] [facility] Tobacco Use History This section includes [...] [place] [facility] Jan 06, 2022 09:00 AM VA-TOBACCO NEVER USED [place] [facility] [facility] Dec 31, 2020 08:00 AM VA-TOBACCO NEVER USED [place] [facility] [place] [facility] Dec 27, 2019 09:48 AM VA-TOBACCO NEVER USED [place] [facility] [place] [facility] Jun 30, 2018 08:41 AM VA-TOBACCO NEVER USED [place] [facility] [place] [facility] Dec 23, 2017 07:46 AM LIFETIME NON-TOBACCO USER [place] [facility] [place] [facility] Dec 22, 2016 08:06 AM LIFETIME NON-TOBACCO USER [place] [facility] [place] [facility] Dec 24, 2015 08:36 AM LIFETIME NON-TOBACCO USER [place] [facility] [place] [facility] Jun 19, 2004 01:52 PM LIFETIME NON-SMOKER [place] [facility] [place] [facility] Jun 19, 2004 01:52 PM LIFETIME NON-TOBACCO USER [place] [facility] [place] [facility] Jun 19, 2004 01:34 PM LIFETIME NON-SMOKER [place] [facility] [place] [facility] Jun 19, 2004 01:34 PM LIFETIME NON-TOBACCO USER [place] [facility] [place] [facility] Advance Directives: All historical and current [...] DIRECTIVE MARINA FAJARDO [place] CNT [place] [facility] [facility] Encounter Notes: All associated encounter notes [...] Code Description C15.9 Malignant neoplasm of esophagus ([facility] 177309381) D64.9 Anemia ([facility] 639070137) R63.4 Weight loss ([facility] 91403416) R73.01 Impaired fasting glucose ([facility] 312184533) I10. Hypertension ([facility] 99735413) 719.47 Pain in joint involving ankle and [...] HEMOGLOBIN A1C Current Rx with last BCVA: OD:-0.25-1.23m751 20/20-2 slow OS:-1.00 sph 20/20-2 slow Add:+2.50 [...] this [facility] (local) and dispensed from another [place] or [facility] facility (remote) as well as inpatient orders [...] Remote Allergy/ADR Data available for this patient [facility] [place] [facility] No Known Allergies Med Recon NoGlossary (Tool #1) INCLUDED IN THIS LIST: Alphabetical list of active outpatient prescriptions dispensed from this [facility] (local) and dispensed from another [place] or [facility] facility (remote) as well as inpatient orders (local pending and active), local clinic medications, locally documented non-VA medications, and local prescriptions that have or been discontinued in the past 90 days. Non-VA Meds Last Documented On: Data not found NOTE The display of VA prescriptions dispensed from another [place] or [facility] facility (remote) is limited to active outpatient prescription entries matched to National Drug File at the originating site and may not include some items such as investigational drugs, compounds, etc. NOT INCLUDED IN THIS LIST: Medications self-entered by the patient into personal health records (i.e. [employer]) are NOT included in this list. Non-VA medications documented outside this [place], remote inpatient orders (regardless of status) and remote clinic medications are NOT included in this list. The patient and provider must always discuss medications the patient is taking, regardless of where the medication was dispensed or obtained. OUTPT ALLOPURINOL 100MG TAB (Status = Active/Suspended) TAKE TWO TABLETS BY MOUTH EVERY DAY FOR GOUT Rx# [id number] Last Released: 11/22/23 Qty/Days Supply: 180/90 Rx Expiration Date: 10/08/24 Refills Remainin OUTPT DIPHENHYDRAMINE HCL 25MG CAP (Status = Active) TAKE ONE CAPSULE BY MOUTH TWICE DAILY NEEDED FOR CHRONIC TROUBLE SLEEPING Rx# [id number] Last Released: 05/27/23 Qty/Days Supply: 60 Rx Expiration Date: 05/24/24 Refills Remainin Indication: FOR CHRONIC TROUBLE SLEEPING OUTPT GUAIFENESIN 600MG SA TAB (Status = Active) TAKE ONE TABLET BY MOUTH TWICE DAILY NEEDED FOR COUGH FOLLOW DOSE WITH FULL GLASS OF WATER Rx# [id number] Last Released: 02/02/23 Qty/Days Supply: 60 Rx Expiration Date: 01/28/24 Refills Remainin Indication: FOR COUGH OUTPT METOPROLOL TARTRATE 25MG TAB (Status = Discontinued) TAKE ONE-HALF TABLET BY MOUTH TWICE DAILY FOR BLOOD PRESSURE/HEART Rx# [id number] Last Released: 11/22/23 Qty/Days Supply: Rx Expiration Date: 10/08/24 Refills Remainin OUTPT NUTR SUPL OSMOLITE 1.2 RITESH LIQUID (Status = Active) DRINK 1 CAN VIA G-TUBE 9 TIMES A DAY FOR NUTRITIONAL SUPPLEMENTATION Rx# [id number] Last Released: 07/06/23 Qty/Days Supply: 264/29 Rx Expiration Date: 04/15/24 Refills Remainin Indication: FOR NUTRITIONAL SUPPLEMENTATION OUTPT SIMVASTATIN 80MG TAB (Status = Active/Suspended) TAKE ONE-HALF TABLET BY MOUTH AT BEDTIME FOR CHOLESTEROL Rx# [id number] Last Released: 11/22/23 Qty/Days Supply: 45 Rx Expiration Date: 10/08/24 Refills Remainin SUPPLIES OUTPT FEED BAG W/GRAVTY SET ENFIT COVID#[id number] (Status = Active) USE 1 GRAVITY BAG TOPICALLY ONCE DAILY FOR NUTRITION Rx# [id number] Last Released: 07/08/23 Qty/Days Supply: 90 Rx Expiration Date: 07/06/24 Refills Remainin Indication: NUTRITION OUTPT GAUZE PAD 4IN X 4IN NONSTERILE (Status = Active) APPLY GAUZE(S) TOPICALLY ONCE DAILY Rx# [id number] Last Released: 04/20/23 Qty/Days Supply: 200/30 Rx Expiration Date: 04/15/24 Refills Remainin Indication: CANCER OUTPT IRRIGATION KIT W/PISTON SYRINGE K#[id number] (Status = Active) USE 1 IRRIGATION KIT DIRECTED EVERY MONTH Rx# [id number] Last Released: 05/12/23 Qty/Days Supply: 11/02 Rx Expiration Date: 05/05/24 Refills Remainin Indication: CANCER ESOPHAGUS OUTPT SYRINGE, IRRIGATION W/BULB 60CC (Status = On Hold) USE 1 SYRINGE TOPICALLY ONCE DAILY DIRECTED FOR FLUSHING ENFIT CONNECTOR Rx# [id number] Last Released: Qty/Days Supply: Rx Expiration Date: 04/15/24 Refills Remainin Indication: CANCER OUTPT VALVE,AMAIRANI ENTERAL,ICU MEDICAL #9000 (Status = Active) USE 1 VALVE ONCE A WEEK Rx# [id number] Last Released: 04/27/23 Qty/Days Supply: 01/29 Rx Expiration Date: 04/16/24 Refills Remainin Indication: G TUBE FEED /es/ CLARISSA RIVERA OD Sweatband Flanger Signed: 01/17/2024 07:57 CLARISSA RIVERA [facility] [place] [facility]
--- OUTSIDE RECORDS SUMMARY | 2024-09-21 09:00 | XMS_ITS | Encounter Summary ---
Author Name [facility] [place] [facility] [place] Address [address] [place] [address] Care Team Providers Care Assurance Engineer Name Role Phone OLIVA PÉREZ Primary [...] Policy Root TOMER ROBLES OF [facility] [employer] GE Apr 03, 2009 [id number] FRANCIS MANCIA SPOUSE BCBS [facility]* Apr 03, 2009 [id number] BLANCHE, JANET SPOUSE BCBS [facility] [id number] GE Apr 03, 2009 [id number] FRANCIS MANCIA SPOUSE [employer] ([id number]) PRESCRIPT ION L4TA* Apr 03, 2009 L4TA [id number] FRANCIS MANCIA SPOUSE [employer] ([id number]) PRESCRIPT ION L4TA* Apr 03, 2009 L4TA [id number] FRANCIS MANCIA SPOUSE [employer] ([id number]) PRESCRIPT ION Apr 03, 2009 L4TA [id number] FRANCIS MANCIA SPOUSE MEDICARE (WNR) MEDICARE (M) PART B Jun 04, 2020 PART B [id number] RAÚL MANCIA PATIENT MEDICARE (WNR) MEDICARE (M) PART A Oct 04, 2006 PART A [id number] RAÚL MANCIA PATIENT MEDICARE (WNR) MEDICARE (M) PART A Oct 04, 2006 PART A [id number] RAÚL MANCIA PATIENT Selected Encounter This section includes the information on record at [place] for the Encounter. Date/Time Encounter Type Encounter Description Reason Pro vider Source Jan 11, 2024 12:00 AM Outpatient Encounter EVENT (HISTORICAL) IHE Encounter Template Text not used by [place] Plan of Treatment: Future Appointments (+ 6 months) and Future Tests (+/- 45 days) The Plan of Treatment section includes future care activities for the patient from all [place] treatmentfacilities. This section includes future appointments and future orders which are active, pending or scheduled. Future Appointments This section includes appointments that were scheduled to occur 6 months from the date of the Encounter, up to a maximum of 20 appointments. The data comes from all [place] treatment facilities. Appointment Date/Time Appointment Type Appointme nt Facility Name Jan 17, 2024 07:30 AM AMBULATORY - [place]ICINE [place] [facility] [place] [facility] May 08, 2024 01:00 PM AMBULATORY [place]ICINE [place] [facility] [place] [facility] May 30, 2024 03:30 PM AMBULATORY - MEDICINE [facility] [facility] Lab Results: +/- 30 days of the encounter This section includes the Chemistry and Hematology Lab Results on record with [place] for the patient. Radiology Reports and Pathology Reports are provided separately, in subsequent sections. Lab Results This section contains the Chemistry/Hematology Results that were resulted 30 days before or 30 daysafter the date of the Encounter. Date/Time Source Result Type Result - Unit Interpretation Reference Range Comment Jan 05, 2024 07:30 AM [facility] URIC ACID Specimen Type: SERUM No comment entered. Ordering Provider: OLIVA PÉREZ Report Released Date/Time: Dec 31, 2023 11:06 AM Reporting Lab: [address] [address] Performing Lab: [address] [address] URIC ACID 5.3 mg/dL 3.5-7.2 Jan 05, 2024 07:30 AM [facility] URINALYSIS CLEAN CATCH Specimen Type: URINE Comment: If Glucose = >500 and Ketones are positive, please alert the Physician. Ordering Provider: OLIVA PÉREZ Report Released Date/Time: Dec 31, 2023 11:06 AM Reporting Lab: [address] [address] Performing Lab: [address] [address] UA COLOR Light-Yellow Yellow UA APPEARANCE Clear Clear UA GLUCOSE NEGATIVE mg/dL Negative UA KETONES NEGATIVE mg/dL Negative UA BLOOD NEGATIVE mg/dL Negative UA PROTEIN NEGATIVE mg/dL Negative UA NITRITE NEGATIVE mg/dL Negative UA BILIRUBIN NEGATIVE mg/dL Negative UA SPECIFIC GRAVITY 1.023 H 1.016-1.022 UA pH 6.5 5.0-9.0 UA UROBILINOGEN <2.0 mg/dL <2.0 UA LEUKOCYTE NEGATIVE Negative Jan 05, 2024 07:30 AM [facility] BASIC METABOLIC PANEL (fasting) Specimen Type: SERUM No comment entered. Ordering Provider: OLIVA PÉREZ Report Released Date/Time: Dec 31, 2023 11:06 AM Reporting Lab: [address] [address] Performing Lab: [address] [address] UREA NITROGEN 21 mg/dL 7-25 GLUCOSE 116 mg/dL H 65-100 SODIUM 139 mmol/L 135-145 POTASSIUM 4.3 mmol/L 3.5-5.0 CHLORIDE 104 mmol/L 100-110 CO2 24 meq/L 20-30 CREATININE, Serum 0.90 mg/dL 0.50-1.40 eGFR(CKD-EPI 2020) 88 mL/min >60 Jan 05, 2024 07:30 AM [facility] LIVER FUNCTION Specimen Type: SERUM No comment entered. Ordering Provider: OLIVA PÉREZ Report Released Date/Time: Dec 31, 2023 11:06 AM Reporting Lab: [facility] [address] [facility] [address] Performing Lab: [address] [address] PROTEIN,TOTAL 6.2 g/dL 6.0-8.3 ALBUMIN 2.9 g/dL L 3.5-5.0 ALKALINE PHOSPHATASE 234 U/L H 40-150 AST 18 U/L 5-34 ALT 16 U/L BILIRUBIN, TOTAL 0.4 mg/dL 0.2-1.2 Jan 05, 2024 07:30 AM [facility] LIPID PANEL FASTING Specimen Type: SERUM No comment entered. Ordering Provider: OLIVA PÉREZ Report Released Date/Time: Dec 31, 2023 11:06 AM Reporting Lab: [address] [address] Performing Lab: [address] [address] CHOLESTEROL 164 mg/dL TRIGLYCERIDE 112 mg/dL 0-150 LDL calculated 110 mg/dL 0-129 CHOL/HDL 5.1 HDL CHOLESTEROL 32 mg/dL L 40-60 Jan 05, 2024 07:30 AM [facility] TSH Specimen Type: SERUM No comment entered. Ordering Provider: OLIVA PÉREZ Report Released Date/Time: Dec 31, 2023 11:06 AM Reporting Lab: [address] [address] Performing Lab: [address] [address] TSH 3.18 u[IU]/mL 0.35-5.00 Jan 05, 2024 07:30 AM [facility] CBC AND DIFF (AUTO) Specimen Type: BLOOD No comment entered. Ordering Provider: OLIVA PÉREZ Report Released Date/Time: Dec 31, 2023 11:06 AM Reporting Lab: [facility] [address] [facility] [address] Performing Lab: [facility] [address] [facility] [address] WBC 7.18 10*3/uL 4.50-11.00 RBC 5.04 10*6/uL 4.23-5.66 HGB 12.4 g/dL L 12.8-17 HCT 39.0 L 39.2-50.4 MCV 77.4 fL L 82-99 MCHC 31.8 g/dL 30.8-35.1 PLT 324 10*3/uL 140-360 RDW-CV 15.2 12.0-16.0 [place], Abs 0.67 10*3/uL 0.30-1.10 MCH 24.6 pg L 26.2-32.6 Neut % 79.5 H 43.7-75.8 Lymph % 10.6 L 14.0-42.3 [place] % 9.3 5.1-13.7 Eos % 0.0 L [...] 107/70 16 96 0 72 186 25 [facility] Social History: Smoking Status (Most current) and Tobacco Use (All prior to encounter date) This section includes the most current, and the historical, smoking and tobacco- related health factors from the [place] facility where the Encounter took place. Current Smoking Status This section includes the most current smoking, or tobacco-related health factor, from the [place] facility where the Encounter took place. Date/Time Current Smoking Status Comment Ronald ity Jan 11, 2024 10:00 AM VA-TOBACCO NEVER USED [place] [facility] Tobacco Use History This section includes a history of the smoking, or tobacco-related health factors, that were collected on or before the date of the Encounter. The data comes from the [place] facility where the Encounter took place. Date/Time Smoking Status/Tobacco Use Comment Yadiel acility Jan 27, 2023 10:00 AM VA-TOBACCO NEVER USED [place] [facility] [facility] Jan 06, 2022 09:00 AM VA-TOBACCO NEVER USED [place] [facility] [facility] Dec 31, 2020 08:00 AM VA-TOBACCO NEVER USED [place] [facility] [facility] Dec 27, 2019 09:48 AM VA-TOBACCO NEVER USED [place] [facility] [facility] Jun 30, 2018 08:41 AM VA-TOBACCO NEVER USED [place] [facility] [facility] Dec 23, 2017 07:46 AM LIFETIME NON-TOBACCO USER [facility] [place] [facility] Dec 22, 2016 08:06 AM LIFETIME NON-TOBACCO USER [place] [facility] [place] [facility] Dec 24, 2015 08:36 AM LIFETIME NON-TOBACCO USER [place] [facility] [place] [facility] Jun 19, 2004 01:52 PM LIFETIME NON-SMOKER [place] [facility] [facility] Jun 19, 2004 01:52 PM LIFETIME NON-TOBACCO USER [place] [facility] [place] [facility] Jun 19, 2004 01:34 PM LIFETIME NON-SMOKER [place] [facility] [facility] Jun 19, 2004 01:34 PM LIFETIME NON-TOBACCO USER [facility] [place] [facility] Advance Directives: All historical and current Section Date Range: From patient's date of to the date document was created. This section includes ALL of a patient's completed or amended [place] Advance and Rescinded Directives. The entries below indicate that a directive exists for the patient, but an actual copy is not included with this document. The data comes from all [place] facilities. Date Advance Directives Provider Source May 20, 2006 ADVANCE DIRECTIVE MARINA FAJARDO [facility]
--- OUTSIDE RECORDS SUMMARY | 2024-09-21 09:00 | XMS_ITS ---
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 Name Role Phone OLIVA PÉREZ Primary [...] Policy Root TOMER BOWMANBS OF [facility] [employer] GE Apr 03, 2009 [id number] FRANCIS MANCIA SPOUSE [facility]* Apr 03, 2009 [id number] BLANCHE, JANET SPOUSE BCBS [facility] [employer] GE Apr 03, 2009 [id number] [phone] FRANCIS MANCIA SPOUSE [employer] ([id number]) PRESCRIPT ION L4TA* Apr 03, 2009 L4TA [id number] FRANCIS MANCIA SPOUSE [employer] ([id number]) PRESCRIPT ION L4TA* Apr 03, 2009 L4TA [id number] FRANCIS MANCIA SPOUSE [employer] ([id number]) PRESCRIPT ION Apr 03, 2009 L4TA [id number] FRANCIS MANCIA SPOUSE MEDICARE (WNR) MEDICARE (M) PART B Jun 04, 2020 PART B [id number] RAÚL MANCIA PATIENT MEDICARE (WNR) MEDICARE (M) PART A Oct 04, 2006 PART A [id number] RAÚL MANCIA PATIENT MEDICARE (WNR) MEDICARE (M) PART A Oct 04, 2006 PART A [id number] RAÚL MANCIA PATIENT Selected Encounter This section includes the information on record at [place] for the Encounter. Date/Time Encounter Type Encounter Description Reason Pro vider Source February 02, 2024 12:00 AM Outpatient Encounter COMMUNITY CARE CONSULT IHE Encounter Template Text not used by [place] Plan of Treatment: Future Appointments (+ 6 months) and Future Tests (+/- 45 days) The Plan of Treatment section includes future care activities for the patient from all [place] treatmentfacilities. This section includes future appointments and future orders which are active, pending or scheduled. Future Appointments This section includes appointments that were scheduled to occur 6 months from the date of the Encounter, up to a maximum of 20 appointments. The data comes from all [place] treatment facilities. Appointment Date/Time Appointment Type Appointme nt Facility Name May 08, 2024 01:00 PM AMBULATORY - MEDICINE [place] [facility] May 30, 2024 03:30 PM AMBULATORY - MEDICINE [place] [facility] [place] [facility] Jul 27, 2024 08:00 AM [facility] Lab Results: +/- 30 days of the encounter This section includes the Chemistry and Hematology Lab Results on record with [place] for the patient. Radiology Reports and Pathology Reports are provided separately, in subsequent sections. Lab Results This section contains the Chemistry/Hematology Results that were resulted 30 days before or 30 daysafter the date of the Encounter. Date/Time Source Result Type Result - Unit Interpretation Reference Range Comment Jan 05, 2024 07:30 AM [facility] URIC ACID Specimen Type: SERUM No comment entered. Ordering Provider: OLIVA PÉREZ Report Released Date/Time: Dec 31, 2023 11:06 AM Reporting Lab: [address] [address] Performing Lab: [address] [address] URIC ACID 5.3 mg/dL 3.5-7.2 Jan 05, 2024 07:30 AM [facility] URINALYSIS CLEAN CATCH Specimen Type: URINE Comment: If Glucose = >500 and Ketones are positive, please alert the Physician. Ordering Provider: OLIVA PÉREZ Report Released Date/Time: Dec 31, 2023 11:06 AM Reporting Lab: [address] [address] Performing Lab: [address] [address] UA COLOR Light-Yellow Yellow UA APPEARANCE Clear Clear UA GLUCOSE NEGATIVE mg/dL Negative UA KETONES NEGATIVE mg/dL Negative UA BLOOD NEGATIVE mg/dL Negative UA PROTEIN NEGATIVE mg/dL Negative UA NITRITE NEGATIVE mg/dL Negative UA BILIRUBIN NEGATIVE mg/dL Negative UA SPECIFIC GRAVITY 1.023 H 1.016-1.022 UA pH 6.5 5.0-9.0 UA UROBILINOGEN <2.0 mg/dL <2.0 UA LEUKOCYTE NEGATIVE Negative Jan 05, 2024 07:30 AM [facility] BASIC METABOLIC PANEL (fasting) Specimen Type: SERUM No comment entered. Ordering Provider: OLIVA PÉREZ Report Released Date/Time: Dec 31, 2023 11:06 AM Reporting Lab: [address] [address] Performing Lab: [address] [address] UREA NITROGEN 21 mg/dL 7-25 GLUCOSE 116 mg/dL H 65-100 SODIUM 139 mmol/L 135-145 POTASSIUM 4.3 mmol/L 3.5-5.0 CHLORIDE 104 mmol/L 100-110 CO2 24 meq/L 20-30 CREATININE, Serum 0.90 mg/dL 0.50-1.40 eGFR(CKD-EPI 2020) 88 mL/min >60 Jan 05, 2024 07:30 AM [facility] TSH Specimen Type: SERUM No comment entered. Ordering Provider: OLIVA PÉREZ Report Released Date/Time: Dec 31, 2023 11:06 AM Reporting Lab: [facility] [address] [facility] [address] Performing Lab: [facility] [address] [facility] [address] TSH 3.18 u[IU]/mL 0.35-5.00 Jan 05, 2024 07:30 AM [facility] LIVER FUNCTION Specimen Type: SERUM No comment entered. Ordering Provider: OLIVA PÉREZ Report Released Date/Time: Dec 31, 2023 11:06 AM Reporting Lab: [address] [address] Performing Lab: [address] [address] PROTEIN,TOTAL 6.2 g/dL 6.0-8.3 ALBUMIN 2.9 g/dL L 3.5-5.0 ALKALINE PHOSPHATASE 234 U/L H 40-150 AST 18 U/L 5-34 ALT 16 U/L BILIRUBIN, TOTAL 0.4 mg/dL 0.2-1.2 Jan 05, 2024 07:30 AM [facility] LIPID PANEL FASTING Specimen Type: SERUM No comment entered. Ordering Provider: OLIVA PÉREZ Report Released Date/Time: Dec 31, 2023 11:06 AM Reporting Lab: [facility] [address] [facility] [address] Performing Lab: [address] [address] CHOLESTEROL 164 mg/dL TRIGLYCERIDE 112 mg/dL 0-150 LDL calculated 110 mg/dL 0-129 CHOL/HDL 5.1 HDL CHOLESTEROL 32 mg/dL L 40-60 Jan 05, 2024 07:30 AM [facility] CBC AND DIFF (AUTO) Specimen Type: BLOOD No comment entered. Ordering Provider: OLIVA PÉREZ Report Released Date/Time: Dec 31, 2023 11:06 AM Reporting Lab: [facility] [address] [facility] [address] Performing Lab: [facility] [address] [facility] [address] WBC 7.18 10*3/uL 4.50-11.00 RBC 5.04 10*6/uL 4.23-5.66 HGB 12.4 g/dL L 12.8-17 HCT 39.0 L 39.2-50.4 MCV 77.4 fL L 82-99 MCHC 31.8 g/dL 30.8-35.1 PLT 324 10*3/uL 140-360 RDW-CV 15.2 12.0-16.0 Lyon, Abs 0.67 10*3/uL 0.30-1.10 MCH 24.6 pg L 26.2-32.6 Neut % 79.5 H 43.7-75.8 Lymph % 10.6 L 14.0-42.3 Lyon % 9.3 5.1-13.7 Eos % 0.0 L [...] and tobacco- related health factors from the [place] facility where the Encounter took place. Current Smoking Status This section includes the most current smoking, or tobacco-related health factor, from the [place] facility where the Encounter took place. Date/Time Current Smoking Status Comment Facil ity Jan 11, 2024 10:00 AM VA-TOBACCO NEVER USED [facility] Tobacco Use History This section includes a history of the smoking, or tobacco-related health factors, that were collected on or before the date of the Encounter. The data comes from the [place] facility where the Encounter took place. Date/Time Smoking Status/Tobacco Use Comment F acility Jan 27, 2023 10:00 AM VA-TOBACCO NEVER USED [facility] [place] [facility] Jan 06, 2022 09:00 AM VA-TOBACCO NEVER USED [facility] [place] [facility] Dec 31, 2020 08:00 AM VA-TOBACCO NEVER USED [facility] [place] [facility] Dec 27, 2019 09:48 AM VA-TOBACCO NEVER USED [facility] [place] [facility] Jun 30, 2018 08:41 AM VA-TOBACCO NEVER USED [facility] [place] [facility] Dec 23, 2017 07:46 AM LIFETIME NON-TOBACCO USER [facility] [place] [facility] Dec 22, 2016 08:06 AM LIFETIME NON-TOBACCO USER [facility] [place] [facility] Dec 24, 2015 08:36 AM LIFETIME NON-TOBACCO USER [facility] [place] [facility] Jun 19, 2004 01:52 PM LIFETIME NON-SMOKER [facility] [place] [facility] Jun 19, 2004 01:52 PM LIFETIME NON-TOBACCO USER [place] [facility] [place] [facility] Jun 19, 2004 01:34 PM LIFETIME NON-SMOKER [place] [facility] [facility] Jun 19, 2004 01:34 PM LIFETIME NON-TOBACCO USER [place] [facility] [place] [facility] Advance Directives: All historical and current Section Date Range: From patient's date of to the date document was created. This section includes ALL of a patient's completed or amended [place] Advance and Rescinded Directives. The entries below indicate that a directive exists for the patient, but an actual copy is not included with this document. The data comes from all [place] facilities. Date Advance Directives Provider Source May 20, 2006 ADVANCE DIRECTIVE MARINA FAJARDO [place] [facility] Encounter Notes: All associated encounter notes [...] REQUIRED Electronically Filed: 02/09/2024 by: ISABEL SLOAN FIELD AIDE ISABEL SLOAN [place] [facility]
--- OUTSIDE RECORDS SUMMARY | 2024-09-21 09:00 | XMS_ITS ---
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 Name Role Phone OLIVA PÉREZ Primary [...] Relationship to Policy Root TOMER ROBLES OF [facility] [employer] GE Apr 03, 2009 [id number] [phone] BLANCHE, JANET SPOUSE [facility]* Apr 03, 2009 [id number] BLANCHE, JANET SPOUSE BCBS [facility] [employer] GE Apr 03, 2009 [id number] FRANCIS MANCIA SPOUSE [employer] ([id number]) PRESCRIPT ION L4TA* Apr 03, 2009 L4TA [id number] FRANCIS MANCIA SPOUSE [employer] ([id number]) PRESCRIPT ION L4TA* Apr 03, 2009 L4TA [id number] FRANCIS MANCIA SPOUSE [employer] ([id number]) PRESCRIPT ION Apr 03, 2009 L4TA [id number] FRANCIS MANCIA SPOUSE MEDICARE (WNR) MEDICARE (M) PART B Jun 04, 2020 PART B [id number] RAÚL MANCIA PATIENT MEDICARE (WNR) MEDICARE (M) PART A Oct 04, 2006 PART A [id number] RAÚL MANCIA PATIENT MEDICARE (WNR) MEDICARE (M) PART A Oct 04, 2006 PART A [id number] [phone] RAÚL MANCIA PATIENT Selected Encounter This section includes the information on record at [place] for the Encounter. Date/Time Encounter Type Encounter Description Reason Pro vider Source Jan 03, 2024 01:12 PM Outpatient Encounter PRIMARY CARE/MEDICINE IHE Encounter Template Text not used by [place] Plan of Treatment: Future Appointments (+ 6 months) and Future Tests (+/- 45 days) The Plan of Treatment section includes future care activities for the patient from all [place] treatmentfacilities. This section includes future appointments and future orders which are active, pending or scheduled. Future Appointments This section includes appointments that were scheduled to occur 6 months from the date of the Encounter, up to a maximum of 20 appointments. The data comes from all [place] treatment facilities. Appointment Date/Time Appointment Type Appointme nt Facility Name Jan 11, 2024 10:00 AM AMBULATORY - MEDICINE [facility] [place] [facility] Jan 17, 2024 07:30 AM AMBULATORY MEDICINE [facility] [place] [facility] May 08, 2024 01:00 PM AMBULATORY MEDICINE [facility] NTR [place] [facility] May 30, 2024 03:30 PM AMBULATORY MEDICINE [facility] N[place] [facility] Lab Results: +/- 30 days of the encounter This section includes the Chemistry and Hematology Lab Results on record with [place] for the patient. Radiology Reports and Pathology Reports are provided separately, in subsequent sections. Lab Results This section contains the Chemistry/Hematology Results that were resulted 30 days before or 30 daysafter the date of the Encounter. Date/Time Source Result Type Result - Unit Interpretation Reference Range Comment Jan 05, 2024 07:30 AM [facility] URIC ACID Specimen Type: SERUM No comment entered. Ordering Provider: OLIVA PÉREZ Report Released Date/Time: Dec 31, 2023 11:06 AM Reporting Lab: [facility] [address] [facility] [address] Performing Lab: [address] [address] URIC ACID 5.3 mg/dL 3.5-7.2 Jan 05, 2024 07:30 AM [facility] URINALYSIS CLEAN CATCH Specimen Type: URINE Comment: If Glucose = >500 and Ketones are positive, please alert the Physician. Ordering Provider: OLIVA PÉREZ Report Released Date/Time: Dec 31, 2023 11:06 AM Reporting Lab: [address] [address] Performing Lab: [address] [address] UA COLOR Light-Yellow Yellow UA APPEARANCE Clear Clear UA GLUCOSE NEGATIVE mg/dL Negative UA KETONES NEGATIVE mg/dL Negative UA BLOOD NEGATIVE mg/dL Negative UA PROTEIN NEGATIVE mg/dL Negative UA NITRITE NEGATIVE mg/dL Negative UA BILIRUBIN NEGATIVE mg/dL Negative UA SPECIFIC GRAVITY 1.023 H 1.016-1.022 UA pH 6.5 5.0-9.0 UA UROBILINOGEN <2.0 mg/dL <2.0 UA LEUKOCYTE NEGATIVE Negative Jan 05, 2024 07:30 AM [facility] BASIC METABOLIC PANEL (fasting) Specimen Type: SERUM No comment entered. Ordering Provider: OLIVA PÉREZ Report Released Date/Time: Dec 31, 2023 11:06 AM Reporting Lab: [address] [address] Performing Lab: [address] [address] UREA NITROGEN 21 mg/dL 7-25 GLUCOSE 116 mg/dL H 65-100 SODIUM 139 mmol/L 135-145 POTASSIUM 4.3 mmol/L 3.5-5.0 CHLORIDE 104 mmol/L 100-110 CO2 24 meq/L 20-30 CREATININE, Serum 0.90 mg/dL 0.50-1.40 eGFR(CKD-EPI 2020) 88 mL/min >60 Jan 05, 2024 07:30 AM [facility] LIVER FUNCTION Specimen Type: SERUM No comment entered. Ordering Provider: OLIVA PÉREZ Report Released Date/Time: Dec 31, 2023 11:06 AM Reporting Lab: [facility] [address] [facility] [address] Performing Lab: [address] [address] PROTEIN,TOTAL 6.2 g/dL 6.0-8.3 ALBUMIN 2.9 g/dL L 3.5-5.0 ALKALINE PHOSPHATASE 234 U/L H 40-150 AST 18 U/L 5-34 ALT 16 U/L BILIRUBIN, TOTAL 0.4 mg/dL 0.2-1.2 Jan 05, 2024 07:30 AM [facility] LIPID PANEL FASTING Specimen Type: SERUM No comment entered. Ordering Provider: OLIVA PÉREZ Report Released Date/Time: Dec 31, 2023 11:06 AM Reporting Lab: [facility] [address] [facility] [address] Performing Lab: [address] [address] CHOLESTEROL 164 mg/dL TRIGLYCERIDE 112 mg/dL 0-150 LDL calculated 110 mg/dL 0-129 CHOL/HDL 5.1 HDL CHOLESTEROL 32 mg/dL L 40-60 Jan 05, 2024 07:30 AM [facility] TSH Specimen Type: SERUM No comment entered. Ordering Provider: OLIVA PÉREZ Report Released Date/Time: Dec 31, 2023 11:06 AM Reporting Lab: [facility] [address] [facility] [facility] [address] Performing Lab: [address] [address] TSH 3.18 u[IU]/mL 0.35-5.00 Jan 05, 2024 07:30 AM [facility] CBC AND DIFF (AUTO) Specimen Type: BLOOD No comment entered. Ordering Provider: OLIVA PÉREZ Report Released Date/Time: Dec 31, 2023 11:06 AM Reporting Lab: [facility] [address] [facility] [address] Performing Lab: [facility] [address] [facility] [address] WBC 7.18 10*3/uL 4.50-11.00 RBC 5.04 10*6/uL 4.23-5.66 HGB 12.4 g/dL L 12.8-17 HCT 39.0 L 39.2-50.4 MCV 77.4 fL L 82-99 MCHC 31.8 g/dL 30.8-35.1 PLT 324 10*3/uL 140-360 RDW-CV 15.2 12.0-16.0 Holt, Abs 0.67 10*3/uL 0.30-1.10 MCH 24.6 pg L 26.2-32.6 Neut % 79.5 H 43.7-75.8 Lymph % 10.6 L 14.0-42.3 Holt % 9.3 5.1-13.7 Eos % 0.0 L [...] and tobacco- related health factors from the [place] facility where the Encounter took place. Current Smoking Status This section includes the most current smoking, or tobacco-related health factor, from the [place] facility where the Encounter took place. Date/Time Current Smoking Status Comment Facil ity Jan 27, 2023 10:00 AM [facility]CO [facility] [place] [facility] Tobacco Use History This section includes a history of the smoking, or tobacco-related health factors, that were collected on or before the date of the Encounter. The data comes from the [place] facility where the Encounter took place. Date/Time Smoking Status/Tobacco Use Comment F acility Jan 06, 2022 09:00 AM VA-TOBACCO NEVER USED [place] [facility] [place] [facility] Dec 31, 2020 08:00 AM VA-TOBACCO NEVER USED [facility] [place] [facility] Dec 27, 2019 09:48 AM VA-TOBACCO NEVER USED [facility] [place] [facility] Jun 30, 2018 08:41 AM VA-TOBACCO NEVER USED [facility] [place] [facility] Dec 23, 2017 07:46 AM LIFETIME NON-TOBACCO USER [facility] [place] [facility] Dec 22, 2016 08:06 AM LIFETIME NON-TOBACCO USER [facility] [place] [facility] Dec 24, 2015 08:36 AM LIFETIME NON-TOBACCO USER [facility] [place] [facility] Jun 19, 2004 01:52 PM LIFETIME NON-SMOKER [place] [facility] [place] [facility] Jun 19, 2004 01:52 PM LIFETIME NON-TOBACCO USER [place] [facility] [place] [facility] Jun 19, 2004 01:34 PM LIFETIME NON-SMOKER [place] [facility] Jun 19, 2004 01:34 PM LIFETIME NON-TOBACCO USER [place] [facility] [place] [facility] Advance Directives: All historical and current Section Date Range: From patient's date of to the date document was created. This section includes ALL of a patient's completed or amended [place] Advance and Rescinded Directives. The entries below indicate that a directive exists for the patient, but an actual copy is not included with this document. The data comes from all [place] facilities. Date Advance Directives Provider Source May 20, 2006 ADVANCE DIRECTIVE MARINA FAJARDO [place] [facility] Encounter Notes: All associated encounter [...] to your upcoming appt. [X] Location in [facility] [X] Fasting labs [ ] Lab work within 30 days [ ] Urine [ ] No Preparation Action taken: [X] Called , left voice message Jan [ ] Called , unable to leave voice mail [ ] Spoke to /career manager to remind them of upcoming appt/preparations Upcoming Appointments: 01/11/2024 10:00 CWM/NO/PACT 2 01/17/2024 07:30 CWM/NO/OPTOMETRY 1 AM 07/27/2024 08:00 CWM/NO/PODIATRY A /es/ BRAIN ROBERTSON AMSA Signed: 01/03/2024 13:12 BRAIN ROBERTSON [place] [facility]
--- OUTSIDE RECORDS SUMMARY | 2024-09-21 09:01 | XMS_ITS ---
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 Role Phone OLIVA PÉREZ Primary Care [...] Relationship to Policy Root TOMER ROBLES [facility] Tribzi GE Apr 03, 2009 [id number] BLANCHE, JANET SPOUSE BCBS [facility]* Apr 03, 2009 [id number] [phone] BLANCHE, FRANCIS SPOUSE BCBS [facility] [employer]Spring GE Apr 03, 2009 [id number] FRANCIS MANCIA SPOUSE EXPRESS SCRIPTS ([id number]) PRESCRIPT ION L4TA* Apr 03, 2009 L4TA [id number] FRANCIS MANCIA SPOUSE [employer] S[employer]IPTS ([id number]) PRESCRIPT ION L4TA* Apr 03, 2009 L4TA [id number] FRANCIS MANCIA SPOUSE EXPRESS SCRIPTS ([id number]) PRESCRIPT ION Apr 03, 2009 L4TA [id number] FRANCIS MANCIA SPOUSE MEDICARE (WNR) MEDICARE (M) PART B Jun 04, 2020 PART B [id number] [phone] RAÚL MANCIA PATIENT MEDICARE (WNR) MEDICARE (M) PART A Oct 04, 2006 PART A [id number] RAÚL MANCIA PATIENT MEDICARE (WNR) MEDICARE (M) PART A Oct 04, 2006 PART A [id number] RAÚL MANCIA PATIENT Selected Encounter This [...] 2024 03:30 PM AMBULATORY - MEDICINE [facility] N[facility] [facility] Jul 27, 2024 08:00 AM AMBULATORY MEDICINE [facility] [place] [facility] Aug 16, 2024 10:00 AM AMBULATORY MEDICINE [facility] [place] [place] [facility] Aug 18, 2024 09:15 AM AMBULATORY - MEDICINE [facility] [place] [place] [facility] Oct 18, 2024 10:00 AM AMBULATORY MEDICINE [facility] [place] [facility] Lab Results: +/- 30 days of the [...] Range Comment May 24, 2024 07:39 AM [facility] TSH Specimen Type: SERUM No comment entered. Ordering Provider: OLIVA PÉREZ Report Released Date/Time: May 06, 2024 05:41 PM Reporting Lab: [facility] [address] [facility] [facility] [address] Performing Lab: [facility] [address] TSH 3.73 u[IU]/mL 0.35-5.00 May 24, 2024 07:39 AM [facility] LIVER FUNCTION Specimen Type: SERUM No comment entered. Ordering Provider: OLIVA PÉREZ Report Released Date/Time: May 06, 2024 05:41 PM Reporting Lab: [address] [address] Performing Lab: [facility] [address] PROTEIN,TOTAL 7.1 g/dL 6.0-8.3 ALBUMIN 3.5 g/dL 3.5-5.0 ALKALINE PHOSPHATASE 233 U/L H 40-150 AST 21 U/L 5-34 ALT 16 U/L BILIRUBIN, TOTAL 0.4 mg/dL 0.2-1.2 May 24, 2024 07:39 AM [facility] URIC ACID Specimen Type: SERUM No comment entered. Ordering Provider: OLIVA PÉREZ Report Released Date/Time: May 06, 2024 05:41 PM Reporting Lab: [facility] [address] Performing Lab: [address] [address] URIC ACID 4.6 mg/dL 3.5-7.2 May 24, 2024 07:39 AM [facility] LIPID PANEL FASTING Specimen Type: SERUM No comment entered. Ordering Provider: OLIVA PÉREZ Report Released Date/Time: May 06, 2024 05:41 PM Reporting Lab: [facility] [address] [facility] [facility] [address] Performing Lab: [facility] [address] [facility] [address] CHOLESTEROL 183 mg/dL TRIGLYCERIDE 115 mg/dL 0-150 LDL calculated 120 mg/dL 0-129 CHOL/HDL 4.6 HDL CHOLESTEROL 40 mg/dL 40-60 May 24, 2024 07:39 AM [facility] CBC AND DIFF (AUTO) Specimen Type: BLOOD No comment entered. Ordering Provider: OLIVA PÉREZ Report Released Date/Time: May 06, 2024 05:41 PM Reporting Lab: [facility] [address] [facility] [facility] [address] Performing Lab: [facility] [address] [facility] [facility] [address] WBC 8.44 10*3/uL 4.50-11.00 RBC 5.28 10*6/uL [...] 10*3/uL 0.00-0.00 May 24, 2024 07:39 AM [facility] BASIC METABOLIC PANEL (fasting) Specimen Type: SERUM No comment entered. Ordering Provider: OLIVA PÉREZ Report Released Date/Time: May 06, 2024 05:41 PM Reporting Lab: [address] [address] Performing Lab: [address] [address] UREA NITROGEN 23 mg/dL 7-25 GLUCOSE 109 mg/dL H 65-100 SODIUM 137 mmol/L 135-145 POTASSIUM 4.3 mmol/L 3.5-5.0 CHLORIDE 103 mmol/L 100-110 CO2 23 meq/L 20-30 CREATININE, Serum 0.83 mg/dL 0.50-1.40 eGFR(CKD-EPI 2020) 90 mL/min >60 May 24, 2024 07:39 AM [facility] URINALYSIS CLEAN CATCH Specimen Type: URINE Comment: If Glucose = >500 and Ketones are positive, please alert the Physician. Ordering Provider: OLIVA PÉREZ Report Released Date/Time: May 06, 2024 05:41 PM Reporting Lab: [address] [address] Performing Lab: [address] [address] UA COLOR Light-Yellow Yellow UA APPEARANCE Clear [...] VA-TOBACCO NEVER USED [place] CNTRL [place] [facility] Tobacco Use History This section includes a history of the smoking, or tobacco-related health factors, that were collected on or before the date of the Encounter. The data comes from the [place] facility where the Encounter took place. Date/Time Smoking Status/Tobacco Use Comment Yadiel acility Jan 27, 2023 10:00 AM VA-TOBACCO NEVER USED [place] [facility] Jan 06, 2022 09:00 AM VA-TOBACCO NEVER USED [place] [facility] Dec 31, 2020 08:00 AM VA-TOBACCO NEVER USED [place] [facility] Dec 27, 2019 09:48 AM VA-TOBACCO NEVER USED [place] [facility] Jun 30, 2018 08:41 AM VA-TOBACCO NEVER USED [place] [facility] Dec 23, 2017 07:46 AM LIFETIME NON-TOBACCO USER [place] [place] [facility] Dec 22, 2016 08:06 AM LIFETIME NON-TOBACCO USER [place] [facility] Dec 24, 2015 08:36 AM LIFETIME NON-TOBACCO USER [place] [facility] Jun 19, 2004 01:52 PM LIFETIME NON-SMOKER [place] [facility] Jun 19, 2004 01:52 PM LIFETIME NON-TOBACCO USER [place] [facility] Jun 19, 2004 01:34 PM LIFETIME NON-SMOKER [place] [facility] Jun 19, 2004 01:34 PM LIFETIME NON-TOBACCO USER [place] [facility] Advance Directives: All historical and current Section [...] 20, 2006 ADVANCE DIRECTIVE MARINA FAJARDO CT [facility] Encounter Notes: All associated encounter notes [...] to your upcoming appt. [X] Location in [facility] [ ] Fasting labs - LABS SHOWING COMPLETED [ ] Lab work within 30 days [ ] Urine [ ] No Preparation Action taken: [ ] Called , left voice message [ ] Called , unable to leave voice mail [X] Spoke to /care coordinator to remind them of upcoming appt/preparations Upcoming Appointments: 05/30/2024 15:30 CWM/NO/PACT 2 07/27/2024 08:00 CWM/NO/PODIATRY A 01/17/2025 08:00 CWM/NO/OPTOMETRY/MERHAR /es/ BRAIN ROBERTSON AMSA Signed: 05/24/2024 11:40 [facility]
--- OUTSIDE RECORDS SUMMARY | 2024-09-21 09:01 | XMS_ITS | Encounter Summary ---
Author Name Department [place] Organization [place] Address [address] [place] [address] Care Team Providers Care Ground Operations Superintendent Name Role Phone OLIVA PEGUERO Primary Care [...] Root TOMER ROBLES OF [facility] NuORDER GE Apr 03, 2009 [id number] [phone] BLANCHE, JANET SPOUSE BCBS [facility] BL[facility]* Apr 03, 2009 [id number] BLANCHE, JANET SPOUSE BCBS [facility] EXPO GE Apr 03, 2009 [id number] FRANCIS MANCIA SPOUSE EXPRESS SCRIPTS ([id number]) PRESCRIPT ION L4TA* Apr 03, 2009 L4TA [id number] FRANCIS MANCIA SPOUSE EXPRESS SCRIPTS ([id number]) PRESCRIPT ION L4TA* Apr 03, 2009 L4TA [id number] FRANCIS MANCIA SPOUSE EXPRESS SCRIPTS ([id number]) PRESCRIPT ION Apr 03, 2009 L4TA [id number] FRANCIS MANCIA SPOUSE MEDICARE (WNR) MEDICARE (M) PART B Jun 04, 2020 PART B [id number] RAÚL MANCIA PATIENT MEDICARE (WNR) MEDICARE (M) PART A Oct 04, 2006 PART A [id number] RAÚL MANCIA PATIENT MEDICARE (WNR) MEDICARE (M) PART A Oct 04, 2006 PART A [id number] RAÚL MANCIA PATIENT Selected Encounter This section includes the information on record at [place] for the Encounter. Date/Time Encounter Type Encounter Description Reason Pro vider Source Apr 05, 2024 06:33 PM Outpatient Encounter PRIMARY CARE/MEDICINE IHE Encounter Template Text not used by [place] Plan of Treatment: Future Appointments (+ 6 months) and Future Tests (+/- 45 days) The Plan of Treatment section includes future care activities for the patient from all [place] treatmentfacilities. This section includes future appointments and future orders which are active, pending or scheduled. Future Appointments This section includes appointments that were scheduled to occur 6 months from the date of the Encounter, up to a maximum of 20 appointments. The data comes from all [place] treatment facilities. Appointment Date/Time Appointment Type Appointme nt Facility Name May 08, 2024 01:00 PM AMBULATORY - MEDICINE [facility] [place] [facility] May 30, 2024 03:30 PM AMBULATORY MEDICINE [facility] [place] [place] [facility] Jul 27, 2024 08:00 AM AMBULATORY - MEDICINE [facility] [place] [place] [facility] Aug 16, 2024 10:00 AM AMBULATORY MEDICINE [facility] [place] [place] [facility] Aug 18, 2024 09:15 AM AMBULATORY MEDICINE [facility] [place] [facility] Social History: Smoking Status (Most current) and Tobacco Use (All prior to encounter date) This section includes the most current, and the historical, smoking and tobacco- related health factors from the [place] facility where the Encounter took place. Current Smoking Status This section includes the most current smoking, or tobacco-related health factor, from the [place] facility where the Encounter took place. Date/Time Current Smoking Status Comment Ronald ity Jan 11, 2024 10:00 AM VA-TOBACCO NEVER USED [place] [facility] Tobacco Use History This section includes a history of the smoking, or tobacco-related health factors, that were collected on or before the date of the Encounter. The data comes from the [place] facility where the Encounter took place. Date/Time Smoking Status/Tobacco Use Comment Yadiel acility Jan 27, 2023 10:00 AM VA-TOBACCO NEVER USED [place] [place] [facility] Jan 06, 2022 09:00 AM VA-TOBACCO NEVER USED [place] [place] [facility] Dec 31, 2020 08:00 AM VA-TOBACCO NEVER USED [place] [facility] Dec 27, 2019 09:48 AM VA-TOBACCO NEVER USED [place] [place] [facility] Jun 30, 2018 08:41 AM VA-TOBACCO NEVER USED [place] [place] [facility] Dec 23, 2017 07:46 AM LIFETIME NON-TOBACCO USER [place] [place] [facility] Dec 22, 2016 08:06 AM LIFETIME NON-TOBACCO USER [place] [place] [facility] Dec 24, 2015 08:36 AM LIFETIME NON-TOBACCO USER [place] [place] [facility] Jun 19, 2004 01:52 PM LIFETIME NON-SMOKER [place] [place] [facility] Jun 19, 2004 01:52 PM LIFETIME NON-TOBACCO USER [place] [place] [facility] Jun 19, 2004 01:34 PM LIFETIME NON-SMOKER [place] [facility] Jun 19, 2004 01:34 PM LIFETIME NON-TOBACCO USER [place] [facility] Advance Directives: All historical and current Section Date Range: From patient's date of to the date document was created. This section includes ALL of a patient's completed or amended VA Advance and Rescinded Directives. The entries below indicate that a directive exists for the patient, but an actual copy is not included with this document. The data comes from all [place] facilities. Date Advance Directives Provider Source May 20, 2006 ADVANCE DIRECTIVE MARINA FAJARDO [place] CNT RL [facility]N [facility] Encounter Notes: All associated encounter notes This section contains the clinical notes associated to the Encounter. Date/Time Encounter Note(s) Provider Source Apr 05, 2024 06:33 PM NONVA CONSULT: LOCAL TITLE: MD/OUTSIDE CONSULT REPORT SUMMARY STANDARD TITLE: NONVA CONSULT DATE OF NOTE: APR 05, 2024@18:33 ENTRY DATE: APR 05, 2024@18:33:08 AUTHOR: OLIVA PEGUERO EXP COSIGNER: URGENCY: STATUS: COMPLETED 03-06-24 [facility] CAT scan of chest shows new pulmonary nodules: Infectious versus neoplastic Plan: Referral to pulmonary for biopsy /es/ Oliva Peguero MD Staff Physician Signed: 04/05/2024 18:33 OLIVA PEGUERO [place] CNTRL TRN [facility]
--- OUTSIDE RECORDS SUMMARY | 2024-09-21 09:01 | XMS_ITS | Encounter Summary ---
Author Name [place] Address [address] [place] [address] Care Team Providers Care Grey Stock Recorder Name Role Phone OLIVA PEGUERO Primary Care [...] Relationship to Policy Root TOMER ROBLES OF [facility] Music Mastermind GE Apr 03, 2009 [id number] BLANCHE, JANET SPOUSE BCBS [facility]UE* Apr 03, 2009 [id number] [phone] BLANCHE, JANET SPOUSE BCBS [facility] TrillTip GE Apr 03, 2009 [id number] FRANCIS MANCIA SPOUSE EXPRESS SCRIPTS ([id number]) PRESCRIPT ION L4TA* Apr 03, 2009 L4TA [id number] FRANCIS MANCIA SPOUSE EXPRESS SCRIPTS ([id number]) PRESCRIPT ION L4TA* Apr 03, 2009 L4TA [id number] FRANCIS MANCIA SPOUSE EXPRESS SCRIPTS ([id number]) PRESCRIPT ION Apr 03, 2009 L4TA [id number] FRANCIS MANCIA SPOUSE MEDICARE (WNR) MEDICARE (M) PART B Jun 04, 2020 PART B [id number] RAÚL MANCIA PATIENT MEDICARE (WNR) MEDICARE (M) PART A Oct 04, 2006 PART A [id number] RAÚL MANCIA PATIENT MEDICARE (WNR) MEDICARE (M) PART A Oct 04, 2006 PART A [id number] [phone] RAÚL MANCIA PATIENT Selected Encounter This [...] 08, 2024 01:00 PM AMBULATORY - MEDICINE [facility] [place] [place] [facility] May 30, 2024 03:30 PM AMBULATORY MEDICINE [facility] [place] [facility] Jul 27, 2024 08:00 AM AMBULATORY - MEDICINE [facility] [place] [facility] Aug 16, 2024 10:00 AM AMBULATORY MEDICINE [facility] [place] [facility] Aug 18, 2024 09:15 AM AMBULATORY MEDICINE [facility] [place] [facility] Social History: Smoking Status (Most current) [...] AM VA-TOBACCO NEVER USED [place] [facility] Tobacco Use History This section includes a history of the smoking, or tobacco-related health factors, that were collected on or before the date of the Encounter. The data comes from the [place] facility where the Encounter took place. Date/Time Smoking Status/Tobacco Use Comment Yadiel acility Jan 27, 2023 10:00 AM VA-TOBACCO NEVER USED [place] [facility] Jan 06, 2022 09:00 AM VA-TOBACCO NEVER USED [place] [facility] Dec 31, 2020 08:00 AM VA-TOBACCO NEVER USED [place] [facility] Dec 27, 2019 09:48 AM VA-TOBACCO NEVER USED [place] [facility] Jun 30, 2018 08:41 AM VA-TOBACCO NEVER USED [place] [facility] Dec 23, 2017 07:46 AM LIFETIME NON-TOBACCO USER [place] [place] [facility] Dec 22, 2016 08:06 AM LIFETIME NON-TOBACCO USER [place] [place] [facility] Dec 24, 2015 08:36 AM LIFETIME NON-TOBACCO USER [place] [facility] Jun 19, 2004 01:52 PM LIFETIME NON-SMOKER [place] [facility] Jun 19, 2004 01:52 PM LIFETIME NON-TOBACCO USER [place] [facility] Jun 19, 2004 01:34 PM LIFETIME NON-SMOKER [place] [facility] Jun 19, 2004 01:34 PM LIFETIME NON-TOBACCO USER [place] [facility] Advance Directives: All historical and current [...] DIRECTIVE MARINA FAJARDO [place] CNT RL [place] [facility] Encounter Notes: All associated encounter notes [...] SLEEPING 3) FEED BAG W/GRAVTY SET ENFIT COVID#[id number] USE 1 ACTIVE GRAVITY BAG TOPICALLY ONCE DAILY FOR NUTRITION 4) GAUZE PAD 4IN X 4IN NONSTERILE APPLY GAUZE(S) ACTIVE TOPICALLY ONCE DAILY 5) IRRIGATION KIT W/PISTON SYRINGE K#[id number] USE 1 ACTIVE IRRIGATION KIT DIRECTED EVERY [...] Staff Physician Signed: 03/19/2024 21:12 OLIVA PEGUERO [place] CNTL [facility]
--- OUTSIDE RECORDS SUMMARY | 2024-09-21 09:01 | XMS_ITS ---
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 Name Role Phone OLIVA PEGUERO Primary Care [...] Name Patient's Relationship to Policy Root TOMER ROLBES OF [facility] Exterity GE Apr 03, 2009 [id number] BLANCHE, JANET SPOUSE BCBS [facility] BLUE* Apr 03, 2009 [id number] BLANCHE, JANET SPOUSE BCBS [facility] Vdopia GE Apr 03, 2009 [id number] [phone] FRANCIS MANCIA SPOUSE EXPRESS SCRIPTS ([id number]) PRESCRIPT ION L4TA* Apr 03, 2009 L4TA [id number] FRANCIS MANCIA SPOUSE EXPRESS SCRIPTS ([id number]) PRESCRIPT ION L4TA* Apr 03, 2009 L4TA [id number] FRANCIS MANCIA SPOUSE EXPRESS SCRIPTS ([id number]) PRESCRIPT ION Apr 03, 2009 L4TA [id number] FRANCIS MANCIA SPOUSE MEDICARE (WNR) MEDICARE (M) PART B Jun 04, 2020 PART B [id number] RAÚL MANCIA PATIENT MEDICARE (WNR) MEDICARE (M) PART A Oct 04, 2006 PART A [id number] RAÚL MANCIA PATIENT MEDICARE (WNR) MEDICARE (M) PART A Oct 04, 2006 PART A [id number] RAÚL MANCIA PATIENT Selected Encounter This [...] 20 appointments. The data comes from all [place] treatment facilities. Appointment Date/Time Appointment Type Appointme nt Facility Name May 08, 2024 01:00 PM [facility] May 30, 2024 03:30 PM [facility] [place] [facility] Jul 27, 2024 08:00 AM AM[facility]ULAT[facility] Social History: Smoking Status (Most current) [...] 11, 2024 10:00 AM VA-TOBACCO NEVER USED [place] [facility] [place] [facility] [...] DIRECTIVE MARINA FAJARDO [place] [facility] Encounter Notes: [...] 02-02-[address] Amin Radiation oncology [facility] Chief complaint: Follow-up gastric cancer Received radiation therapy Getting immunotherapy from oncology Dr. Guzman Plan: Continue immunotherapy /es/ Oliva Peguero MD Staff Physician Signed: 02/10/2024 16:26 OLIVA PEGUERO [place] [facility]
--- OUTSIDE RECORDS SUMMARY | 2024-09-21 09:01 | XMS_ITS ---
Author Name [facility] [place] Address [address] [place] [address] Care Team Providers Care Tank Crewmember Name Role Phone OLIVA PÉREZ Primary Care [...] to Policy Root TOMER BOWMANBS OF [facility] [employer] GE Apr 03, 2009 [id number] [phone] FRANCIS MANCIA SPOUSE BCBS [facility] BLUE* Apr 03, 2009 [id number] [phone] BLANCHE, JANET SPOUSE BCBS [facility] [employer] GE Apr 03, 2009 [id number] FRANCIS MANCIA SPOUSE EXPRESS SCRIPTS ([id number]) PRESCRIPT ION L4TA* Apr 03, 2009 L4TA [id number] FRANCIS MANCIA SPOUSE EXPRESS SCRIPTS ([id number]) PRESCRIPT ION L4TA* Apr 03, 2009 L4TA [id number] FRANCIS MANCIA SPOUSE EXPRESS SCRIPTS ([id number]) PRESCRIPT ION Apr 03, 2009 L4TA [id number] FRANCIS MANCIA SPOUSE MEDICARE (WNR) MEDICARE (M) PART B Jun 04, 2020 PART B [id number] RAÚL MANCIA PATIENT MEDICARE (WNR) MEDICARE (M) PART A Oct 04, 2006 PART A [id number] RAÚL MANCIA PATIENT MEDICARE (WNR) MEDICARE (M) PART A Oct 04, 2006 PART A [id number] RAÚL MANCIA PATIENT Selected Encounter This section includes the information on record at [place] for the Encounter. Date/Time Encounter Type Encounter Description Reason Pro vider Source Mar 06, 2024 12:00 AM Outpatient Encounter COMMUNITY CARE CONSULT IHE Encounter Template Text not used by [place] Plan of Treatment: Future Appointments (+ 6 months) and Future Tests (+/- 45 days) The Plan of Treatment section includes future care activities for the patient from all [place] treatmentfacilities. This section includes future appointments and future orders which are active, pending or scheduled. Future Appointments This section includes appointments that were scheduled to occur 6 months from the date of the Encounter, up to a maximum of 20 appointments. The data comes from all [place] treatment facilities. Appointment Date/Time Appointment Type Appointme nt Facility Name May 08, 2024 01:00 PM AMBULATORY - MEDICINE [facility] [place] [facility] May 30, 2024 03:30 PM AMBULATORY - MEDICINE [facility] [place] [facility] Jul 27, 2024 08:00 AM AMBULATORY - MEDICINE [facility] [place] [facility] Aug 16, 2024 10:00 AM AMBULATORY MEDICINE [facility] [place] [facility] Aug 18, 2024 09:15 AM AMBULATORY MEDICINE [facility] [place] [facility] Social History: Smoking Status (Most current) and Tobacco Use (All prior to encounter date) This section includes the most current, and the historical, smoking and tobacco- related health factors from the [place] facility where the Encounter took place. Current Smoking Status This section includes the most current smoking, or tobacco-related health factor, from the [place] facility where the Encounter took place. Date/Time Current Smoking Status Comment Ronald ity Jan 11, 2024 10:00 AM VA-TOBACCO NEVER USED [place] [facility] Tobacco Use History This section includes a history of the smoking, or tobacco-related health factors, that were collected on or before the date of the Encounter. The data comes from the [place] facility where the Encounter took place. Date/Time Smoking Status/Tobacco Use Comment Yadiel acility Jan 27, 2023 10:00 AM VA-TOBACCO NEVER USED [place] [facility] Jan 06, 2022 09:00 AM VA-TOBACCO NEVER USED [place] [facility] [facility] Dec 31, 2020 08:00 AM VA-TOBACCO NEVER USED [place] [facility] Dec 27, 2019 09:48 AM VA-TOBACCO NEVER USED [place] [facility] [place] [facility] Jun 30, 2018 08:41 AM VA-TOBACCO NEVER USED [place] [facility] [place] [facility] Dec 23, 2017 07:46 AM LIFETIME NON-TOBACCO USER [place] [facility] [place] [facility] Dec 22, 2016 08:06 AM LIFETIME NON-TOBACCO USER [place] [facility] Dec 24, 2015 08:36 AM LIFETIME NON-TOBACCO USER [place] [place] [facility] Jun 19, 2004 01:52 PM LIFETIME NON-SMOKER [place] [place] [facility] Jun 19, 2004 01:52 PM LIFETIME NON-TOBACCO USER [place] [facility] [place] [facility] Jun 19, 2004 01:34 PM LIFETIME NON-SMOKER [place] [place] [facility] Jun 19, 2004 01:34 PM LIFETIME NON-TOBACCO USER [place] [facility] Advance Directives: All historical and current Section Date Range: From patient's date of to the date document was created. This section includes ALL of a patient's completed or amended VA Advance and Rescinded Directives. The entries below indicate that a directive exists for the patient, but an actual copy is not included with this document. The data comes from all [place] facilities. Date Advance Directives Provider Source May 20, 2006 ADVANCE DIRECTIVE MARINA FAJARDO [facility] Encounter Notes: All associated encounter notes This [...] REQUIRED Electronically Filed: 04/18/2024 by: [facility]
--- OUTSIDE RECORDS SUMMARY | 2024-09-21 09:01 | XMS_ITS | Encounter Summary ---
Author Name Department [place] Organization Department [place] Address [address] [place] [address] Care Team Providers Care Medical Physics Researcher Name Role Phone OLIVA PEGUERO Primary Care [...] to Policy Root TOMER ROBLES OF [facility] [employer] GE Apr 03, 2009 [id number] [phone] BLANCHE, JANET SPOUSE BCBS [facility] BLUE* Apr 03, 2009 [id number] BLANCHE, JANET SPOUSE BCBS [facility] [employer] GE Apr 03, 2009 [id number] [phone] FRANCIS MANCIA SPOUSE EXPRESS SCRIPTS ([id number]) PRESCRIPT ION L4TA* Apr 03, 2009 L4TA [id number] FRANCIS MANCIA SPOUSE [employer] ([id number]) PRESCRIPT ION L4TA* Apr 03, 2009 L4TA [id number] FRANCIS MANCIA SPOUSE [employer] ([id number]) PRESCRIPT ION Apr 03, 2009 L4TA [id number] FRANCIS MANCIA SPOUSE MEDICARE (WNR) MEDICARE (M) PART B Jun 04, 2020 PART B [id number] [phone] RAÚL MANCIA PATIENT MEDICARE (WNR) MEDICARE (M) PART A Oct 04, 2006 PART A [id number] RAÚL MANCIA PATIENT MEDICARE (WNR) MEDICARE (M) PART A Oct 04, 2006 PART A [id number] RAÚL MANCIA PATIENT Selected Encounter This section includes the information on record at [place] for the Encounter. Date/Time Encounter Type Encounter Description Reason Pro vider Source May 18, 2024 06:27 PM Outpatient Encounter PRIMARY CARE/MEDICINE IHE Encounter Template Text not used by [place] Plan of Treatment: Future Appointments (+ 6 months) and Future Tests (+/- 45 days) The Plan of Treatment section includes future care activities for the [facility] [place] [facility] This section includes future appointments and future orders which are active, pending or scheduled. Future Appointments This section includes appointments that were scheduled to occur 6 months from the date of the Encounter, up to a maximum of 20 appointments. The data comes from all [place] treatment facilities. Appointment Date/Time Appointment Type Appointme nt Facility Name May 30, 2024 03:30 PM AMBULATORY - MEDICINE [place] [facility] Jul 27, 2024 08:00 AM AMBULATORY MEDICINE [facility] [facility] Aug 16, 2024 10:00 AM AMBULATORY MEDICINE [facility] [place] [facility] Aug 18, 2024 09:15 AM AMBULATORY - MEDICINE [facility] [place] [facility] Oct 18, 2024 10:00 AM AMBULATORY MEDICINE [facility] [place] [facility] Lab Results: +/- 30 days of the encounter This section includes the Chemistry and Hematology Lab Results on record with [place] for the patient. Radiology Reports and Pathology Reports are provided separately, in subsequent sections. Lab Results This section contains the Chemistry/Hematology Results that were resulted 30 days before or 30 daysafter the date of the Encounter. Date/Time Source Result Type Result - Unit Interpretation Reference Range Comment May 24, 2024 07:39 AM [facility] TSH Specimen Type: SERUM No comment entered. Ordering Provider: OLIVA PEGUERO Report Released Date/Time: May 06, 2024 05:41 PM Reporting Lab: [facility] [address] [facility] [address] Performing Lab: [facility] [address] TSH 3.73 u[IU]/mL 0.35-5.00 May 24, 2024 07:39 AM [facility] LIPID PANEL FASTING Specimen Type: SERUM No comment entered. Ordering Provider: OLIVA PEGUERO Report Released Date/Time: May 06, 2024 05:41 PM Reporting Lab: [address] [address] Performing Lab: [facility] [address] CHOLESTEROL 183 mg/dL TRIGLYCERIDE 115 mg/dL 0-150 LDL calculated 120 mg/dL 0-129 CHOL/HDL 4.6 HDL CHOLESTEROL 40 mg/dL 40-60 May 24, 2024 07:39 AM [facility] LIVER FUNCTION Specimen Type: SERUM No comment entered. Ordering Provider: OLIVA PEGUERO Report Released Date/Time: May 06, 2024 05:41 PM Reporting Lab: [address] [address] Performing Lab: [address] [address] PROTEIN,TOTAL 7.1 g/dL 6.0-8.3 ALBUMIN 3.5 g/dL 3.5-5.0 ALKALINE PHOSPHATASE 233 U/L H 40-150 AST 21 U/L 5-34 ALT 16 U/L BILIRUBIN, TOTAL 0.4 mg/dL 0.2-1.2 May 24, 2024 07:39 AM [facility] BASIC METABOLIC PANEL (fasting) Specimen Type: SERUM No comment entered. Ordering Provider: OLIVA PEGUERO Report Released Date/Time: May 06, 2024 05:41 PM Reporting Lab: [facility] [address] [facility] [address] Performing Lab: [address] [address] UREA NITROGEN 23 mg/dL 7-25 GLUCOSE 109 mg/dL H 65-100 SODIUM 137 mmol/L 135-145 POTASSIUM 4.3 mmol/L 3.5-5.0 CHLORIDE 103 mmol/L 100-110 CO2 23 meq/L 20-30 CREATININE, Serum 0.83 mg/dL 0.50-1.40 eGFR(CKD-EPI 2020) 90 mL/min >60 May 24, 2024 07:39 AM [facility] URIC ACID Specimen Type: SERUM No comment entered. Ordering Provider: OLIVA PEGUERO Report Released Date/Time: May 06, 2024 05:41 PM Reporting Lab: [address] [address] Performing Lab: [address] [address] URIC ACID 4.6 mg/dL 3.5-7.2 May 24, 2024 07:39 AM [facility] URINALYSIS CLEAN CATCH Specimen Type: URINE Comment: If Glucose = >500 and Ketones are positive, please alert the Physician. Ordering Provider: OLIVA PEGUERO Report Released Date/Time: May 06, 2024 05:41 PM Reporting Lab: [address] [address] Performing Lab: [address] [address] UA COLOR Light-Yellow Yellow UA APPEARANCE Clear Clear UA GLUCOSE Normal mg/dL Negative UA KETONES NEGATIVE mg/dL Negative UA BLOOD NEGATIVE mg/dL Negative UA PROTEIN NEGATIVE mg/dL Negative UA NITRITE NEGATIVE mg/dL Negative UA BILIRUBIN NEGATIVE mg/dL Negative UA SPECIFIC GRAVITY 1.020 1.016-1.022 UA pH 5.5 5.0-9.0 UA UROBILINOGEN Normal mg/dL <2.0 UA LEUKOCYTE NEGATIVE Negative May 24, 2024 07:39 AM [facility] CBC AND DIFF (AUTO) Specimen Type: BLOOD No comment entered. Ordering Provider: OLIVA PEGUERO Report Released Date/Time: May 06, 2024 05:41 PM Reporting Lab: [facility] [address] [facility] [address] Performing Lab: [facility] [address] [facility] [address] WBC 8.44 10*3/uL 4.50-11.00 RBC 5.28 10*6/uL [...] and tobacco- related health factors from the [place] facility where the Encounter took place. Current Smoking Status This section includes the most current smoking, or tobacco-related health factor, from the [place] facility where the Encounter took place. Date/Time Current Smoking Status Comment Ronald ity Jan 11, 2024 10:00 AM VA-TOBACCO NEVER USED [place] [facility] Tobacco Use History This section includes a history of the smoking, or tobacco-related health factors, that were collected on or before the date of the Encounter. The data comes from the [place] facility where the Encounter took place. Date/Time [...] this document. The data comes from all [place] facilities. Date Advance Directives Provider Source May 20, 2006 ADVANCE DIRECTIVE MARINA FAJARDO [facility] Encounter Notes: All associated encounter [...] 05-08-[address] 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
--- OUTSIDE RECORDS SUMMARY | 2024-09-21 09:01 | XMS_ITS | Encounter Summary ---
Author Name [facility] [place] Organization [place] Address [address] [place] [address] Care Team Providers Care Political Anthropologist Name Role Phone OLIVA PEGUERO Primary Care [...] Relationship to Policy Root TOMER ROBLES OF [facility] [employer] GE Apr 03, 2009 [id number] BLANCHE, JANET SPOUSE BCBS [facility]UE* Apr 03, 2009 [id number] BLANCHE, JANET SPOUSE BCBS [facility] [employer] GE Apr 03, 2009 [id number] FRANCIS MANCIA SPOUSE EXPRESS S[employer]IP[employer] ([id number]) PRESCRIPT ION L4TA* Apr 03, 2009 L4TA [id number] FRANCIS MANCIA SPOUSE [employer] ([id number]) PRESCRIPT ION L4TA* Apr 03, 2009 L4TA [id number] FRANCIS MANCIA SPOUSE [employer] ([id number]) PRESCRIPT ION Apr 03, 2009 L4TA [id number] FRANCIS MANCIA SPOUSE MEDICARE (WNR) MEDICARE (M) PART B Jun 04, 2020 PART B [id number] [phone] [id number] RAÚL MANCIA PATIENT MEDICARE (WNR) MEDICARE (M) PART A Oct 04, 2006 PART A [id number] RAÚL MANCIA PATIENT MEDICARE (WNR) MEDICARE (M) PART A Oct 04, 2006 PART A [id number] RAÚL MANCIA PATIENT Selected Encounter This section includes the information on record at [place] for the Encounter. Date/Time Encounter Type Encounter Description Reason Pro vider Source Apr 13, 2024 01:58 PM Outpatient Encounter PRIMARY CARE/MEDICINE IHE Encounter [...] 08, 2024 01:00 PM AMBULATORY - MEDICINE [facility] [place] [facility] May 30, 2024 03:30 PM AMBULATORY MEDICINE [facility] [place] [facility] Jul 27, 2024 08:00 AM AMBULATORY - MEDICINE [facility] [place] [facility] Aug 16, 2024 10:00 AM AMBULATORY MEDICINE [facility] [place] [facility] Aug 18, 2024 09:15 AM AMBULATORY MEDICINE [facility] [place] [facility] Social History: Smoking Status (Most [...] AM VA-TOBACCO NEVER USED [place] [facility] Tobacco Use History This section includes a history of the smoking, or tobacco-related health factors, that were collected on or before the date of the Encounter. The data comes from the [place] facility where the Encounter took place. Date/Time Smoking Status/Tobacco Use Comment Yadiel acility Jan 27, 2023 10:00 AM VA-TOBACCO NEVER USED [place] [facility] Jan 06, 2022 09:00 AM VA-TOBACCO NEVER USED [place] [facility] Dec 31, 2020 08:00 AM VA-TOBACCO NEVER USED [place] [facility] Dec 27, 2019 09:48 AM VA-TOBACCO NEVER USED [place] [place] [facility] Jun 30, 2018 08:41 AM VA-TOBACCO NEVER USED [place] [place] [facility] Dec 23, 2017 07:46 AM LIFETIME NON-TOBACCO USER [place] [place] [facility] Dec 22, 2016 08:06 AM LIFETIME NON-TOBACCO USER [place] [facility] Dec 24, 2015 08:36 AM LIFETIME NON-TOBACCO USER [place] [facility] Jun 19, 2004 01:52 PM LIFETIME NON-SMOKER [place] [facility] Jun 19, 2004 01:52 PM LIFETIME NON-TOBACCO USER [place] [place] [facility] Jun 19, 2004 01:34 PM LIFETIME NON-SMOKER [place] [place] [facility] Jun 19, 2004 01:34 PM LIFETIME NON-TOBACCO USER [place] [facility] Advance Directives: All historical and [...] May 20, 2006 ADVANCE DIRECTIVE MARINA FAJARDO [facility] Encounter Notes: All associated encounter notes This section contains the clinical notes associated to the Encounter. Date/Time Encounter Note(s) Provider Source Apr 13, 2024 01:58 PM NONVA CONSULT: LOCAL TITLE: MD/OUTSIDE CONSULT REPORT SUMMARY STANDARD TITLE: NONVA CONSULT DATE OF NOTE: APR 13, 2024@13:58 ENTRY DATE: APR 13, 2024@13:58:50 AUTHOR: OLIVA PEGUERO EXP COSIGNER: URGENCY: STATUS: COMPLETED 03-27-[address] Guzman Hematology oncology [facility] Chief complaint: Follow-up esophageal cancer. Treated with radiation therapy and chemotherapy. PET/CT consistent with metastatic disease. Plan: Follow-up 6 weeks /delores/ Oliva Peguero MD Staff Physician Signed: 04/13/2024 13:59 OLIVA PEGEURO [place] [facility]
--- OUTSIDE RECORDS SUMMARY | 2024-09-21 09:01 | XMS_ITS | Encounter Summary ---
Author Name [place] Address [address] [place] [address] Care Team Providers Care Cnc Mill And Lathe Operator Name Role Phone OLIVA PÉREZ Primary [...] Relationship to Policy Root TOMER BOWMANBS OF [facility] [employer] GE Apr 03, 2009 [id number] [phone] FRANCIS MANCIA SPOUSE BCBS [facility] BLUE* Apr 03, 2009 [id number] BLANCHE, JANET SPOUSE BCBS [facility] [employer] GE Apr 03, 2009 [id number] FRANCIS MANCIA SPOUSE EXPRESS S[employer] ([id number]) PRESCRIPT ION L4TA* Apr 03, 2009 L4TA [id number] FRANCIS MANCIA SPOUSE [employer] ([id number]) PRESCRIPT ION L4TA* Apr 03, 2009 L4TA [id number] FRANCIS MANCIA SPOUSE [employer] ([id number]) PRESCRIPT ION Apr 03, 2009 L4TA [id number] FRANCIS MANCIA SPOUSE MEDICARE (WNR) MEDICARE (M) PART B Jun 04, 2020 PART B [id number] RAÚL MANCIA PATIENT MEDICARE (WNR) MEDICARE (M) PART A Oct 04, 2006 PART A [id number] [phone] RAÚL MANCIA PATIENT MEDICARE (WNR) MEDICARE (M) PART A Oct 04, 2006 PART A [id number] RAÚL MANCIA PATIENT Selected Encounter This section [...] 08, 2024 01:00 PM AMBULATORY - [facility] [place] [facility] May 30, 2024 03:30 PM AMBUL[facility]ORY [facility] [place] [facility] Jul 27, 2024 08:00 AM AMBULATORY - [facility] [place] [facility] Aug 16, 2024 10:00 AM AMBULATORY MED[facility] [place] [facility] Aug 18, 2024 09:15 AM AMBULATORY MEDICINE [facility] [place] [facility] Social History: Smoking Status (Most current) and [...] VA-TOBACCO NEVER USED [place] [facility] Tobacco Use History This section includes a history of the smoking, or tobacco-related health factors, that were collected on or before the date of the Encounter. The data comes from the [place] facility where the Encounter took place. Date/Time Smoking Status/Tobacco Use Comment Yadiel acility Jan 27, 2023 10:00 AM VA-TOBACCO NEVER USED [place] [facility] Jan 06, 2022 09:00 AM VA-TOBACCO NEVER [...] LIFETIME NON-TOBACCO USER [place] [facility] Advance Directives: All historical [...] May 20, 2006 ADVANCE DIRECTIVE MARINA FAJARDO [place] CNT [facility] Encounter Notes: All associated encounter notes [...] REQUIRED Electronically Filed: 04/21/2024 by: GENET HAHN Drill Bit Sharpener [facility]
--- OUTSIDE RECORDS SUMMARY | 2024-09-21 09:02 | XMS_ITS | Encounter Summary ---
Author Name [facility] [place] [facility] [place] Organization [facility] [place] Address [address] [place] [address] Care Team Providers Care Family Law Specialist Name Role Phone OLIVA PEGUERO Primary [...] Relationship to Policy Root TOMER BOWMANBS OF [facility] [employer] GE Apr 03, 2009 [id number] BLANCHE, JANET SPOUSE BCBS [facility]* Apr 03, 2009 [id number] [phone] BLANCHE, FRANCIS SPOUSE BCBS [facility] [employer] GE Apr 03, 2009 [id number] FRANCIS MANCIA SPOUSE [employer] ([id number]) PRESCRIPT ION L4TA* Apr 03, 2009 L4TA [id number] FRANCIS MANCIA SPOUSE [employer] ([id number]) PRESCRIPT ION L4TA* Apr 03, 2009 L4TA [id number] FRANCIS MANCIA SPOUSE [employer] ([id number]) PRESCRIPT ION Apr 03, 2009 L4TA [id number] FRANCIS MANCIA SPOUSE MEDICARE (WNR) MEDICARE (M) PART B Jun 04, 2020 PART B [id number] RAÚL MANCIA PATIENT MEDICARE (WNR) MEDICARE (M) PART A Oct 04, 2006 PART A [id number] RAÚL MANCIA PATIENT MEDICARE (WNR) MEDICARE (M) PART A Oct 04, 2006 PART A [id number] RAÚL MANCIA PATIENT Selected Encounter This section includes the information on record at ID for the Encounter. Date/Time Encounter Type Encounter Description Reason Provider Source May 30, 2024 03:30 PM OFFICE O/P EST SF 10 MIN PRIMARY CARE/MEDICINE ICD-10-CM C15.9 Malignant neoplasm of esophagus, unspecified OLIVA PEGUERO [facility] Encounter Template Text not used by ID Assessments - Encounter Diagnoses This section includes the primary and secondary diagnoses documented for the Encounter. Date/Time Primary/Secondary Diagnosis Diagnosis Name Provider Source May 30, 2024 03:53 PM PRIMARY Malignant neoplasm of esophagus, unspecified [facility] [place] [facility] Plan of Treatment: Future Appointments (+ 6 months) and Future Tests (+/- 45 days) The Plan of Treatment section includes future care activities for the patient from all [facility]. This section includes future appointments and future orders which are active, pending or scheduled. Future Appointments This section includes appointments that were scheduled to occur 6 months from the date of the Encounter, up to a maximum of 20 appointments. The data comes from all ID treatment facilities. Appointment Date/Time Appointment Type Appointme nt Facility Name Jul 27, 2024 08:00 AM AMBULATORY - MEDICINE [facility] [place] [facility] Aug 16, 2024 10:00 AM AMBULATORY - MEDICINE [facility] [place] [facility] Aug 18, 2024 09:15 AM AMBULATORY - MEDICINE [facility] C [facility] [place] [facility] Oct 18, 2024 10:00 AM [facility] Lab Results: +/- 30 days of the encounter This section includes the Chemistry and Hematology Lab Results on record with ID for the patient. Radiology Reports and Pathology Reports are provided separately, in subsequent sections. Lab Results This section contains the Chemistry/Hematology Results that were resulted 30 days before or 30 daysafter the date of the Encounter. Date/Time Source Result Type Result - Unit Interpretation Reference Range Comment May 24, 2024 07:39 AM [facility] TSH Specimen Type: SERUM No comment entered. Ordering Provider: OLIVA PEGUERO Report Released Date/Time: May 06, 2024 05:41 PM Reporting Lab: [address] [address] Performing Lab: [address] [address] TSH 3.73 u[IU]/mL 0.35-5.00 May 24, 2024 07:39 AM [facility] LIVER FUNCTION Specimen Type: SERUM No comment entered. Ordering Provider: OLIVA PEGUERO Report Released Date/Time: May 06, 2024 05:41 PM Reporting Lab: [address] [address] Performing Lab: [address] [address] PROTEIN,TOTAL 7.1 g/dL 6.0-8.3 ALBUMIN 3.5 g/dL 3.5-5.0 ALKALINE PHOSPHATASE 233 U/L H 40-150 AST 21 U/L 5-34 ALT 16 U/L BILIRUBIN, TOTAL 0.4 mg/dL 0.2-1.2 May 24, 2024 07:39 AM [facility] URIC ACID Specimen Type: SERUM No comment entered. Ordering Provider: OLIVA PEGUERO Report Released Date/Time: May 06, 2024 05:41 PM Reporting Lab: [address] [address] Performing Lab: [address] [address] URIC ACID 4.6 mg/dL 3.5-7.2 May 24, 2024 07:39 AM [facility] LIPID PANEL FASTING Specimen Type: SERUM No comment entered. Ordering Provider: OLIVA PEGUERO Report Released Date/Time: May 06, 2024 05:41 PM Reporting Lab: [facility] [address] [facility] [address] Performing Lab: [facility] [address] [facility] [address] CHOLESTEROL 183 mg/dL TRIGLYCERIDE 115 mg/dL 0-150 LDL calculated 120 mg/dL 0-129 CHOL/HDL 4.6 HDL CHOLESTEROL 40 mg/dL 40-60 May 24, 2024 07:39 AM [facility] CBC AND DIFF (AUTO) Specimen Type: BLOOD No comment entered. Ordering Provider: OLIVA PEGUERO Report Released Date/Time: May 06, 2024 05:41 PM Reporting Lab: [facility] [address] [facility] [address] Performing Lab: [address] [address] WBC 8.44 10*3/uL 4.50-11.00 RBC 5.28 10*6/uL [...] 10*3/uL 0.00-0.00 May 24, 2024 07:39 AM [facility] BASIC METABOLIC PANEL (fasting) Specimen Type: SERUM No comment entered. Ordering Provider: OLIVA PEGUERO Report Released Date/Time: May 06, 2024 05:41 PM Reporting Lab: [address] [address] Performing Lab: [address] [address] UREA NITROGEN 23 mg/dL 7-25 GLUCOSE 109 mg/dL H 65-100 SODIUM 137 mmol/L 135-145 POTASSIUM 4.3 mmol/L 3.5-5.0 CHLORIDE 103 mmol/L 100-110 CO2 23 meq/L 20-30 CREATININE, Serum 0.83 mg/dL 0.50-1.40 eGFR(CKD-EPI 2020) 90 mL/min >60 May 24, 2024 07:39 AM [facility] URINALYSIS CLEAN CATCH Specimen Type: URINE Comment: If Glucose = >500 and Ketones are positive, please alert the Physician. Ordering Provider: OLIVA PEGUERO Report Released Date/Time: May 06, 2024 05:41 PM Reporting Lab: [address] [address] Performing Lab: [address] [address] UA COLOR Light-Yellow Yellow UA APPEARANCE Clear Clear UA GLUCOSE Normal mg/dL Negative UA KETONES NEGATIVE mg/dL Negative UA BLOOD NEGATIVE mg/dL Negative UA PROTEIN NEGATIVE mg/dL Negative UA NITRITE NEGATIVE mg/dL Negative UA BILIRUBIN NEGATIVE mg/dL Negative UA SPECIFIC GRAVITY 1.020 1.016-1.022 UA pH 5.5 5.0-9.0 UA UROBILINOGEN Normal mg/dL <2.0 UA LEUKOCYTE NEGATIVE Negative Vital Signs: All taken on the encounter date This section contains inpatient and outpatient Vital Signs collected on the date of the Encounter. Date/Time Temperature Pulse Blood Pressure Respiratory Rate SP02 Pain Height Weight Body Mass Index Source May 30, 2024 03:22 PM 97.9 99 110/72 16 96 0 72 184.5 25 [facility] [place] [facility] Social History: Smoking Status (Most current) and Tobacco Use (All prior to encounter date) This section includes the most current, and the historical, smoking and tobacco- related health factors from the ID facility where the Encounter took place. Current Smoking Status This section includes the most current smoking, or tobacco-related health factor, from the ID facility where the Encounter took place. Date/Time Current Smoking Status Comment Facil ity Jan 11, 2024 10:00 AM [facility]-TOBACCO [facility]ED [facility] Tobacco Use History This section includes a history of the smoking, or tobacco-related health factors, that were collected on or before the date of the Encounter. The data comes from the ID facility where the Encounter took place. Date/Time Smoking Status/Tobacco Use Comment F acility Jan 27, 2023 10:00 AM VA-TOBACCO NEVER USED [facility] [place] [facility] Jan 06, 2022 09:00 AM VA-TOBACCO NEVER USED [facility] [place] [facility] Dec 31, 2020 08:00 AM VA-TOBACCO NEVER USED [facility] [place] [facility] Dec 27, 2019 09:48 AM VA-TOBACCO NEVER USED [facility] [place] [facility] Jun 30, 2018 08:41 AM VA-TOBACCO NEVER USED [facility] [place] [facility] Dec 23, 2017 07:46 AM LIFETIME NON-TOBACCO USER [facility] [place] [facility] Dec 22, 2016 08:06 AM LIFETIME NON-TOBACCO USER [facility] [place] [facility] Dec 24, 2015 08:36 AM LIFETIME NON-TOBACCO USER [facility] [place] [facility] Jun 19, 2004 01:52 PM LIFETIME NON-SMOKER [facility] [place] [facility] Jun 19, 2004 01:52 PM LIFETIME NON-TOBACCO USER [facility] [place] [facility] Jun 19, 2004 01:34 PM LIFETIME NON-SMOKER [facility] [place] [facility] Jun 19, 2004 01:34 PM LIFETIME NON-TOBACCO USER ID [facility] [place] [facility] Advance Directives: All historical and current Section Date Range: From patient's date of to the date document was created. This section includes ALL of a patient's completed or amended ID Advance and Rescinded Directives. The entries below indicate that a directive exists for the patient, but an actual copy is not included with this document. The data comes from all ID facilities. Date Advance Directives Provider Source May 20, 2006 ADVANCE DIRECTIVE MARINA FAJARDO ID CNT [facility] Encounter Notes: All associated encounter [...] GOUT 2) FEED BAG W/GRAVTY SET MISAEL COVID#[id number] USE 1 ACTIVE GRAVITY BAG TOPICALLY ONCE DAILY FOR NUTRITION 3) SIMVASTATIN 80MG TAB TAKE ONE-HALF TABLET BY MOUTH AT ACTIVE (S) BEDTIME FOR CHOLESTEROL safety advisor note Chief complaint: Esophageal cancer History of [...] NEGATIVE Bilirubin, Urine (AX 4280): NEGATIVE Specific [place], (AX 4280): 1.020 pH, Urine (KG8619): 5.5 Urobilinogen, Urine (AX 4280): Normal Leukocyte [...] %: 81.5 H Lymph %: 10.2 L Hendricks %: 7.3 Eos %: 0.0 L Baso %: 0.5 Neut, Abs: 6.88 Lymph, Abs: 0.86 L Hendricks, Abs: 0.62 Eos, Abs: 0.00 L Baso, [...] of active outpatient prescriptions dispensed from this ID (local) and dispensed from another ID or [facility] facility (remote) as well as inpatient [...] Staff Physician Signed: 05/30/2024 15:53 OLIVA PEGUERO ID [facility] [place] [facility] May 30, 2024 03:25 PM PREVENTIVE MEDICIN [...] LPN Signed: 05/30/2024 15:28 [facility] JUNIOR [facility]
--- OUTSIDE RECORDS SUMMARY | 2024-09-21 09:02 | XMS_ITS | Encounter Summary ---
Author Name [place] Address [address] [place] [address] Care Team Providers Care Molecular Spectroscopist Name Role Phone OLIVA PEGUERO Primary Care [...] Policy Root TOMER ROBLES OF [facility] [employer] GE Apr 03, 2009 [id number] [phone] BLANCHE, JANET SPOUSE BCBS [facility]* Apr 03, 2009 [id number] [phone] BLANCHE, JANET SPOUSE BCBS [facility] [employer] GE Apr 03, 2009 [id number] [phone] FRANCIS MANCIA SPOUSE [employer] ([id number]) PRESCRIPT ION L4TA* Apr 03, 2009 L4TA [id number] FRANCIS MANCIA SPOUSE [employer] ([id number]) PRESCRIPT ION L4TA* Apr 03, 2009 L4TA [id number] FRANCIS MANCIA SPOUSE [employer] ([id number]) PRESCRIPT ION Apr 03, 2009 L4TA [id number] FRANCIS MANCIA SPOUSE MEDICARE (WNR) MEDICARE (M) PART B Jun 04, 2020 PART B [id number] RAÚL MANCIA PATIENT MEDICARE (WNR) MEDICARE (M) PART A Oct 04, 2006 PART A [id number] RAÚL MANCIA PATIENT MEDICARE (WNR) MEDICARE (M) PART A Oct 04, 2006 PART A [id number] RAÚL MANCIA PATIENT Selected Encounter This section [...] 27, 2024 08:00 AM AMBULATORY - MEDICINE [facility] [place] [facility] Aug 16, 2024 10:00 AM AMBULATORY MEDICINE [facility] [place] [facility] Aug 18, 2024 09:15 AM AMBULATORY MEDICINE [facility] [place] [facility] Oct 18, 2024 10:00 AM [facility] Active, Pending, and Scheduled Orders This [...] 10:27 PM Consult Order COMMUNITY CARE-PULMONARY Cons Keel Press Operator's Choice [facility] [place] [facility] Lab Results: +/- 30 days of [...] Range Comment May 24, 2024 07:39 AM [facility] TSH Specimen Type: SERUM No comment entered. Ordering Provider: OLIVA PEGUERO Report Released Date/Time: May 06, 2024 05:41 PM Reporting Lab: [facility] [address] [address] Performing Lab: [facility] [address] [address] TSH 3.73 u[IU]/mL 0.35-5.00 May 24, 2024 07:39 AM [facility] LIPID PANEL FASTING Specimen Type: SERUM No comment entered. Ordering Provider: OLIVA PEGUERO Report Released Date/Time: May 06, 2024 05:41 PM Reporting Lab: [facility] [address] [address] Performing Lab: [facility] [address] [address] CHOLESTEROL 183 mg/dL TRIGLYCERIDE 115 mg/dL 0-150 LDL calculated 120 mg/dL 0-129 CHOL/HDL 4.6 HDL CHOLESTEROL 40 mg/dL 40-60 May 24, 2024 07:39 AM [facility] LIVER FUNCTION Specimen Type: SERUM No comment entered. Ordering Provider: OLIVA PEGUERO Report Released Date/Time: May 06, 2024 05:41 PM Reporting Lab: [facility] [address] [address] Performing Lab: [facility] [address] [address] PROTEIN,TOTAL 7.1 g/dL 6.0-8.3 ALBUMIN 3.5 g/dL 3.5-5.0 ALKALINE PHOSPHATASE 233 U/L H 40-150 AST 21 U/L 5-34 ALT 16 U/L BILIRUBIN, TOTAL 0.4 mg/dL 0.2-1.2 May 24, 2024 07:39 AM [facility] BASIC METABOLIC PANEL (fasting) Specimen Type: SERUM No comment entered. Ordering Provider: OLIVA PEGUERO Report Released Date/Time: May 06, 2024 05:41 PM Reporting Lab: [address] [address] Performing Lab: [address] [address] UREA NITROGEN 23 mg/dL 7-25 GLUCOSE 109 mg/dL H 65-100 SODIUM 137 mmol/L 135-145 POTASSIUM 4.3 mmol/L 3.5-5.0 CHLORIDE 103 mmol/L 100-110 CO2 23 meq/L 20-30 CREATININE, Serum 0.83 mg/dL 0.50-1.40 eGFR(CKD-EPI 2020) 90 mL/min >60 May 24, 2024 07:39 AM [facility] URIC ACID Specimen Type: SERUM No comment entered. Ordering Provider: OLIVA PEGUERO Report Released Date/Time: May 06, 2024 05:41 PM Reporting Lab: [address] [address] Performing Lab: [facility] [address] URIC ACID 4.6 mg/dL 3.5-7.2 May 24, 2024 07:39 AM [facility] URINALYSIS CLEAN CATCH Specimen Type: URINE Comment: If Glucose = >500 and Ketones are positive, please alert the Physician. Ordering Provider: OLIVA PEGUERO Report Released Date/Time: May 06, 2024 05:41 PM Reporting Lab: [address] [address] Performing Lab: [facility] [address] [facility] [address] UA COLOR Light-Yellow Yellow UA APPEARANCE Clear Clear UA GLUCOSE Normal mg/dL Negative UA KETONES NEGATIVE mg/dL Negative UA BLOOD NEGATIVE mg/dL Negative UA PROTEIN NEGATIVE mg/dL Negative UA NITRITE NEGATIVE mg/dL Negative UA BILIRUBIN NEGATIVE mg/dL Negative UA SPECIFIC GRAVITY 1.020 1.016-1.022 UA pH 5.5 5.0-9.0 UA UROBILINOGEN Normal mg/dL <2.0 UA LEUKOCYTE NEGATIVE Negative May 24, 2024 07:39 AM [facility] CBC AND DIFF (AUTO) Specimen Type: BLOOD No comment entered. Ordering Provider: OLIVA PEGUERO Report Released Date/Time: May 06, 2024 05:41 PM Reporting Lab: [address] [address] Performing Lab: [address] [address] WBC 8.44 10*3/uL 4.50-11.00 RBC 5.28 10*6/uL [...] VA-TOBACCO NEVER USED [facility] [place] [facility] Tobacco Use History This section includes a history of the smoking, or tobacco-related health factors, that were collected on or before the date of the Encounter. The data comes from the [place] facility where the Encounter took place. Date/Time Smoking Status/Tobacco Use Comment F acility Jan 27, 2023 10:00 AM VA-TOBACCO NEVER USED [facility] [place] [facility] Jan 06, 2022 09:00 AM VA-TOBACCO NEVER USED [facility] [place] [facility] Dec 31, 2020 08:00 AM VA-TOBACCO NEVER USED [facility] [place] [facility] Dec 27, 2019 09:48 AM VA-TOBACCO NEVER USED [facility] [place] [facility] Jun 30, 2018 08:41 AM VA-TOBACCO NEVER USED [facility] [place] [facility] Dec 23, 2017 07:46 AM LIFETIME NON-TOBACCO USER [facility] [place] [facility] Dec 22, 2016 08:06 AM LIFETIME NON-TOBACCO USER [facility] [place] [facility] Dec 24, 2015 08:36 AM LIFETIME NON-TOBACCO USER [facility] [place] [facility] Jun 19, 2004 01:52 PM LIFETIME NON-SMOKER [facility] [place] [facility] Jun 19, 2004 01:52 PM LIFETIME NON-TOBACCO USER [facility] [place] [facility] Jun 19, 2004 01:34 PM LIFETIME NON-SMOKER [facility] [place] [facility] Jun 19, 2004 01:34 PM LIFETIME NON-TOBACCO USER [facility] Advance Directives: All historical and current [...] May 20, 2006 ADVANCE DIRECTIVE MARINA FAJARDO [facility] Encounter Notes: All associated encounter notes This section contains the clinical notes associated to the Encounter. Date/Time Encounter Note(s) Provider Source Jun 22, 2024 02:58 PM NONVA CONSULT: LOCAL TITLE: MD/OUTSIDE CONSULT REPORT SUMMARY STANDARD TITLE: NONVA CONSULT DATE OF NOTE: JUN 22, 2024@14:58 ENTRY DATE: JUN 22, 2024@14:59:01 AUTHOR: OLIVA PEGUERO EXP COSIGNER: URGENCY: STATUS: COMPLETED 06-15-[address] Beach [facility] Chief complaint: Follow-up esophageal cancer Treated with chemotherapy, radiation therapy, immunotherapy Patient has not had surgery for cancer Plan: CT chest in 2 months follow-up /delores/ Oliva Peguero MD Staff Physician Signed: 06/22/2024 14:59 OLIVA PEGUERO [facility]
--- OUTSIDE RECORDS SUMMARY | 2024-09-21 09:02 | XMS_ITS ---
Author Name [facility] [place] Address [address] [place] [address] Care Team Providers Care Java Core Developer Name Role Phone OLIVA PEGUERO Primary Care [...] Relationship to Policy Root TOMER ROBLES OF [facility] Thoughtly GE Apr 03, 2009 [id number] BLANCHE, JANET SPOUSE BCBS [facility] BLUE* Apr 03, 2009 [id number] [phone] BLANCHE, JANET SPOUSE BCBS [facility] Joinnus GE Apr 03, 2009 [id number] [phone] FRANCIS MANCIA SPOUSE EXPRESS SCRIPTS ([id number]) PRESCRIPT ION L4TA* Apr 03, 2009 L4TA [id number] FRANCIS MANCIA SPOUSE [employer] ([id number]) PRESCRIPT ION L4TA* Apr 03, 2009 L4TA [id number] FRANCIS MANCIA SPOUSE [employer] S[employer] ([id number]) PRESCRIPT ION Apr 03, 2009 L4TA [id number] FRANCIS MANCIA SPOUSE MEDICARE (WNR) MEDICARE (M) PART B Jun 04, 2020 PART B [id number] RAÚL MANCIA PATIENT MEDICARE (WNR) MEDICARE (M) PART A Oct 04, 2006 PART A [id number] RAÚL MANCIA PATIENT MEDICARE (WNR) MEDICARE (M) PART A Oct 04, 2006 PART A [id number] RAÚL MANCIA PATIENT Selected Encounter This [...] 27, 2024 08:00 AM AMBULATORY - MEDICINE [facility] [place] [facility] Aug 16, 2024 10:00 AM AMBULATORY MEDICINE [facility] N[place] [facility] Aug 18, 2024 09:15 AM AMBULATORY MEDICINE [facility] NTR [place] [facility] Oct 18, 2024 10:00 AM AMBULATORY MEDICINE [facility] Lab Results: +/- 30 days of [...] Range Comment May 24, 2024 07:39 AM [facility] TSH Specimen Type: SERUM No comment entered. Ordering Provider: OLIVA PEGUERO Report Released Date/Time: May 06, 2024 05:41 PM Reporting Lab: [facility] [address] [facility] [address] Performing Lab: [facility] [address] TSH 3.73 u[IU]/mL 0.35-5.00 May 24, 2024 07:39 AM [facility] LIPID PANEL FASTING Specimen Type: SERUM No comment entered. Ordering Provider: OLIVA PEGUERO Report Released Date/Time: May 06, 2024 05:41 PM Reporting Lab: [address] [address] Performing Lab: [address] [address] CHOLESTEROL 183 mg/dL TRIGLYCERIDE 115 mg/dL 0-150 LDL calculated 120 mg/dL 0-129 CHOL/HDL 4.6 HDL CHOLESTEROL 40 mg/dL 40-60 May 24, 2024 07:39 AM [facility] LIVER FUNCTION Specimen Type: SERUM No comment entered. Ordering Provider: OLIVA PEGUERO Report Released Date/Time: May 06, 2024 05:41 PM Reporting Lab: [facility] [address] Performing Lab: [facility] [address] PROTEIN,TOTAL 7.1 g/dL 6.0-8.3 ALBUMIN 3.5 g/dL 3.5-5.0 ALKALINE PHOSPHATASE 233 U/L H 40-150 AST 21 U/L 5-34 ALT 16 U/L BILIRUBIN, TOTAL 0.4 mg/dL 0.2-1.2 May 24, 2024 07:39 AM [facility] BASIC METABOLIC PANEL (fasting) Specimen Type: SERUM No comment entered. Ordering Provider: OLIVA PEGUERO Report Released Date/Time: May 06, 2024 05:41 PM Reporting Lab: [facility] [address] [facility] [address] Performing Lab: [address] [address] UREA NITROGEN 23 mg/dL 7-25 GLUCOSE 109 mg/dL H 65-100 SODIUM 137 mmol/L 135-145 POTASSIUM 4.3 mmol/L 3.5-5.0 CHLORIDE 103 mmol/L 100-110 CO2 23 meq/L 20-30 CREATININE, Serum 0.83 mg/dL 0.50-1.40 eGFR(CKD-EPI 2020) 90 mL/min >60 May 24, 2024 07:39 AM [facility] URIC ACID Specimen Type: SERUM No comment entered. Ordering Provider: OLIVA PEGUERO Report Released Date/Time: May 06, 2024 05:41 PM Reporting Lab: [address] [address] Performing Lab: [address] [address] URIC ACID 4.6 mg/dL 3.5-7.2 May 24, 2024 07:39 AM [facility] URINALYSIS CLEAN CATCH Specimen Type: URINE Comment: If Glucose = >500 and Ketones are positive, please alert the Physician. Ordering Provider: OLIVA PEGUERO Report Released Date/Time: May 06, 2024 05:41 PM Reporting Lab: [address] [address] Performing Lab: [address] [address] UA COLOR Light-Yellow Yellow UA APPEARANCE Clear Clear UA GLUCOSE Normal mg/dL Negative UA KETONES NEGATIVE mg/dL Negative UA BLOOD NEGATIVE mg/dL Negative UA PROTEIN NEGATIVE mg/dL Negative UA NITRITE NEGATIVE mg/dL Negative UA BILIRUBIN NEGATIVE mg/dL Negative UA SPECIFIC GRAVITY 1.020 1.016-1.022 UA pH 5.5 5.0-9.0 UA UROBILINOGEN Normal mg/dL <2.0 UA LEUKOCYTE NEGATIVE Negative May 24, 2024 07:39 AM [facility] CBC AND DIFF (AUTO) Specimen Type: BLOOD No comment entered. Ordering Provider: OLIVA PEGUERO Report Released Date/Time: May 06, 2024 05:41 PM Reporting Lab: [facility] [address] [facility] [address] Performing Lab: [facility] [address] [facility] [address] WBC 8.44 10*3/uL 4.50-11.00 RBC 5.28 10*6/uL [...] 11, 2024 10:00 AM VA-TOBACCO NEVER USED [place] [facility] Tobacco Use History This section includes a history of the smoking, or tobacco-related health factors, that were collected on or before the date of the Encounter. The data comes from the [place] facility where the Encounter took place. Date/Time Smoking Status/Tobacco Use Comment F acility Jan 27, 2023 10:00 AM VA-TOBACCO NEVER USED [place] [facility] Jan 06, 2022 09:00 AM VA-TOBACCO NEVER USED [place] [facility] Dec 31, 2020 08:00 AM VA-TOBACCO NEVER USED [place] [facility] Dec 27, 2019 09:48 AM VA-TOBACCO NEVER USED [place] [facility] Jun 30, 2018 08:41 AM VA-TOBACCO NEVER USED [place] [facility] Dec 23, 2017 07:46 AM LIFETIME NON-TOBACCO USER [place] [facility] Dec 22, 2016 08:06 AM LIFETIME NON-TOBACCO USER [place] [facility] Dec 24, 2015 08:36 AM LIFETIME NON-TOBACCO USER [place] [facility] Jun 19, 2004 01:52 PM LIFETIME NON-SMOKER [place] [facility] Jun 19, 2004 01:52 PM LIFETIME NON-TOBACCO USER [place] [facility] Jun 19, 2004 01:34 PM LIFETIME NON-SMOKER [place] [facility] Jun 19, 2004 01:34 PM LIFETIME NON-TOBACCO USER [place] [facility] Advance Directives: All historical and [...] DIRECTIVE MARINA FAJARDO [place] CNT [place] [facility] Encounter Notes: All associated encounter [...] 05-16-24 MRI brain with and without contrast [facility] Ordered by Dr. Guzman Mass lesion Chronic lacunar infarcts Mild cerebral loss /es/ Oliva Peguero MD Staff Physician Signed: 06/08/2024 16:17 OLIVA PEGUERO [place] CNTRL TRN [facility]
--- OUTSIDE RECORDS SUMMARY | 2024-09-21 09:02 | XMS_ITS | Encounter Summary ---
Author Name [facility] [place] Address [address] [place] [address] Care Team Providers Care Educational Guidance Counselor Name Role Phone OLIVA PÉREZ Primary [...] Policy Root TOMER BOWMANBS OF [facility] Synata GE Apr 03, 2009 [id number] FRANCIS MANCIA SPOUSE BCBS [facility] BLUE* Apr 03, 2009 [id number] [phone] BLANCHE, JANET SPOUSE BCBS [facility] [employer] GE Apr 03, 2009 [id number] FRANCIS MANCIA SPOUSE EXPRESS SCRIPTS ([id number]) PRESCRIPT ION L4TA* Apr 03, 2009 L4TA [id number] FRANCIS MANCIA SPOUSE [employer] ([id number]) PRESCRIPT ION L4TA* Apr 03, 2009 L4TA [id number] FRANCIS MANCIA SPOUSE [employer] S[employer]IP[employer] ([id number]) PRESCRIPT ION Apr 03, 2009 L4TA [id number] FRANCIS MANCIA SPOUSE MEDICARE (WNR) MEDICARE (M) PART B Jun 04, 2020 PART B [id number] RAÚL MANCIA PATIENT MEDICARE (WNR) MEDICARE (M) PART A Oct 04, 2006 PART A [id number] [phone] RAÚL MANCIA PATIENT MEDICARE (WNR) MEDICARE (M) PART A Oct 04, 2006 PART A [id number] RAÚL MANCIA PATIENT Selected Encounter This section includes the information on record at [place] for the Encounter. Date/Time Encounter Type Encounter Description Reason Pro vider Source May 16, 2024 12:00 AM Outpatient Encounter COMMUNITY CARE CONSULT IHE Encounter Template Text not used by [place] Plan of Treatment: Future Appointments (+ 6 months) and Future Tests (+/- 45 days) The Plan of Treatment section includes future care activities for the patient from all [place] [facility]. This section includes future appointments and [...] 30, 2024 03:30 PM AMBULATORY - MEDICINE [facility] [place]L [place] [facility] Jul 27, 2024 08:00 AM AMBULATORY - MEDICINE [facility] N[place]L [place] [facility] Aug 16, 2024 10:00 AM AMBULATORY MEDICINE [facility] N[place]L [place] [facility] Aug 18, 2024 09:15 AM AMBULATORY - MEDICINE [facility] N[place]L [place] [facility] Oct 18, 2024 10:00 AM AMBULATORY MEDICINE [facility] NTRL [place] [facility] Lab Results: +/- 30 days of [...] Range Comment May 24, 2024 07:39 AM [facility] TSH Specimen Type: SERUM No comment entered. Ordering Provider: OLIVA PÉREZ Report Released Date/Time: May 06, 2024 05:41 PM Reporting Lab: [address] [address] Performing Lab: [facility] [address] TSH 3.73 u[IU]/mL 0.35-5.00 May 24, 2024 07:39 AM [facility] LIPID PANEL FASTING Specimen Type: SERUM No comment entered. Ordering Provider: OLIVA PÉREZ Report Released Date/Time: May 06, 2024 05:41 PM Reporting Lab: [address] [address] Performing Lab: [facility] [address] CHOLESTEROL 183 mg/dL TRIGLYCERIDE 115 mg/dL 0-150 LDL calculated 120 mg/dL 0-129 CHOL/HDL 4.6 HDL CHOLESTEROL 40 mg/dL 40-60 May 24, 2024 07:39 AM [facility] LIVER FUNCTION Specimen Type: SERUM No comment entered. Ordering Provider: OLIVA PÉREZ Report Released Date/Time: May 06, 2024 05:41 PM Reporting Lab: [facility] [address] Performing Lab: [address] [address] PROTEIN,TOTAL 7.1 g/dL 6.0-8.3 ALBUMIN 3.5 g/dL 3.5-5.0 ALKALINE PHOSPHATASE 233 U/L H 40-150 AST 21 U/L 5-34 ALT 16 U/L BILIRUBIN, TOTAL 0.4 mg/dL 0.2-1.2 May 24, 2024 07:39 AM [facility] BASIC METABOLIC PANEL (fasting) Specimen Type: SERUM No comment entered. Ordering Provider: OLIVA PÉREZ Report Released Date/Time: May 06, 2024 05:41 PM Reporting Lab: [address] [address] Performing Lab: [address] [address] UREA NITROGEN 23 mg/dL 7-25 GLUCOSE 109 mg/dL H 65-100 SODIUM 137 mmol/L 135-145 POTASSIUM 4.3 mmol/L 3.5-5.0 CHLORIDE 103 mmol/L 100-110 CO2 23 meq/L 20-30 CREATININE, Serum 0.83 mg/dL 0.50-1.40 eGFR(CKD-EPI 2020) 90 mL/min >60 May 24, 2024 07:39 AM [facility] URIC ACID Specimen Type: SERUM No comment entered. Ordering Provider: OLIVA PÉREZ Report Released Date/Time: May 06, 2024 05:41 PM Reporting Lab: [address] [address] Performing Lab: [address] [address] URIC ACID 4.6 mg/dL 3.5-7.2 May 24, 2024 07:39 AM [facility] URINALYSIS CLEAN CATCH Specimen Type: URINE Comment: If Glucose = >500 and Ketones are positive, please alert the Physician. Ordering Provider: OLIVA PÉREZ Report Released Date/Time: May 06, 2024 05:41 PM Reporting Lab: [address] [address] Performing Lab: [address] [address] UA COLOR Light-Yellow Yellow UA APPEARANCE Clear Clear UA GLUCOSE Normal mg/dL Negative UA KETONES NEGATIVE mg/dL Negative UA BLOOD NEGATIVE mg/dL Negative UA PROTEIN NEGATIVE mg/dL Negative UA NITRITE NEGATIVE mg/dL Negative UA BILIRUBIN NEGATIVE mg/dL Negative UA SPECIFIC GRAVITY 1.020 1.016-1.022 UA pH 5.5 5.0-9.0 UA UROBILINOGEN Normal mg/dL <2.0 UA LEUKOCYTE NEGATIVE Negative May 24, 2024 07:39 AM [facility] CBC AND DIFF (AUTO) Specimen Type: BLOOD No comment entered. Ordering Provider: OLIVA PÉREZ Report Released Date/Time: May 06, 2024 05:41 PM Reporting Lab: [facility] [address] [facility] [address] Performing Lab: [facility] [address] [facility] [address] WBC 8.44 10*3/uL 4.50-11.00 RBC 5.28 10*6/uL [...] 11, 2024 10:00 AM VA-TOBACCO NEVER USED [place] [facility] Tobacco Use History This section includes a history of the smoking, or tobacco-related health factors, that were collected on or before the date of the Encounter. The data comes from the [place] facility where the Encounter took place. Date/Time Smoking Status/Tobacco Use Comment F acility Jan 27, 2023 10:00 AM VA-TOBACCO NEVER USED [place] [facility] Jan 06, 2022 09:00 AM VA-TOBACCO NEVER USED [place] [facility] Dec 31, 2020 08:00 AM VA-TOBACCO NEVER USED [place] [facility] Dec 27, 2019 09:48 AM VA-TOBACCO NEVER USED [place] [facility] Jun 30, 2018 08:41 AM VA-TOBACCO NEVER USED [place] [facility] Dec 23, 2017 07:46 AM LIFETIME NON-TOBACCO USER [place] [facility] Dec 22, 2016 08:06 AM LIFETIME NON-TOBACCO USER [place] [facility] Dec 24, 2015 08:36 AM LIFETIME NON-TOBACCO USER [place] [facility] Jun 19, 2004 01:52 PM LIFETIME NON-SMOKER [place] [facility] Jun 19, 2004 01:52 PM LIFETIME NON-TOBACCO USER [place] [facility] Jun 19, 2004 01:34 PM LIFETIME NON-SMOKER [place] [facility] Jun 19, 2004 01:34 PM LIFETIME NON-TOBACCO USER [place] [facility] Advance Directives: All historical and current [...] 20, 2006 ADVANCE DIRECTIVE MARINA FAJARDO [place] [facility] Encounter Notes: All associated encounter notes [...] REQUIRED Electronically Filed: 06/20/2024 by: MARILIN AUGUSTIN STONEMASON APPRENTICE MARILIN AUGUSTIN [place] [facility]
--- OUTSIDE RECORDS SUMMARY | 2024-09-21 09:02 | XMS_ITS ---
Author Name [facility] [place] Address [address] [place] [address] Care Team Providers Care Production Artist Name Role Phone OLIVA PÉREZ Primary Care [...] to Policy Root TOMER BOWMANBS OF [facility] [employer] GE Apr 03, 2009 [id number] FRANCIS MANCIA SPOUSE BCBS [facility] BLUE* Apr 03, 2009 [id number] [phone] BLANCHE, JANET SPOUSE BCBS [facility] [employer] GE Apr 03, 2009 [id number] FRANCIS MANCIA SPOUSE EXPRESS S[employer]IP[employer] ([id number]) PRESCRIPT ION L4TA* Apr 03, 2009 L4TA [id number] FRANCIS MANCIA SPOUSE [employer] ([id number]) PRESCRIPT ION L4TA* Apr 03, 2009 L4TA [id number] FRANCIS MANCIA SPOUSE [employer] ([id number]) PRESCRIPT ION Apr 03, 2009 L4TA [id number] FRANCIS MANCIA SPOUSE MEDICARE (WNR) MEDICARE (M) PART B Jun 04, 2020 PART B [id number] [phone] RAÚL MANCIA PATIENT MEDICARE (WNR) MEDICARE (M) PART A Oct 04, 2006 PART A [id number] [phone] RAÚL MANCIA PATIENT MEDICARE (WNR) MEDICARE (M) PART A Oct 04, 2006 PART A [id number] RAÚL MANCIA PATIENT Selected Encounter This [...] activities for the patient from all [place] [facility] This section includes future appointments and [...] 30, 2024 03:30 PM AMBULATORY - MEDICINE [facility] [place]L [place] [facility] Jul 27, 2024 08:00 AM AMBULATORY - MEDICINE [facility] [place]L [place] [facility] Aug 16, 2024 10:00 AM AMBULATORY MEDICINE [facility] N[place]L [place] [facility] Aug 18, 2024 09:15 AM AMBULATORY - MEDICINE [facility] N[place]L [place] [facility] Oct 18, 2024 10:00 AM AMBULATORY MEDICINE [facility] N[place]L [place] [facility] Lab Results: +/- 30 days of [...] Range Comment May 24, 2024 07:39 AM [facility] LIVER FUNCTION Specimen Type: SERUM No comment entered. Ordering Provider: OLIVA PÉREZ Report Released Date/Time: May 06, 2024 05:41 PM Reporting Lab: [address] [address] Performing Lab: [address] [address] PROTEIN,TOTAL 7.1 g/dL 6.0-8.3 ALBUMIN 3.5 g/dL 3.5-5.0 ALKALINE PHOSPHATASE 233 U/L H 40-150 AST 21 U/L 5-34 ALT 16 U/L BILIRUBIN, TOTAL 0.4 mg/dL 0.2-1.2 May 24, 2024 07:39 AM [facility] BASIC METABOLIC PANEL (fasting) Specimen Type: SERUM No comment entered. Ordering Provider: OLIVA PÉREZ Report Released Date/Time: May 06, 2024 05:41 PM Reporting Lab: [address] [address] Performing Lab: [address] [address] UREA NITROGEN 23 mg/dL 7-25 GLUCOSE 109 mg/dL H 65-100 SODIUM 137 mmol/L 135-145 POTASSIUM 4.3 mmol/L 3.5-5.0 CHLORIDE 103 mmol/L 100-110 CO2 23 meq/L 20-30 CREATININE, Serum 0.83 mg/dL 0.50-1.40 eGFR(CKD-EPI 2020) 90 mL/min >60 May 24, 2024 07:39 AM [facility] LIPID PANEL FASTING Specimen Type: SERUM No comment entered. Ordering Provider: OLIVA PÉREZ Report Released Date/Time: May 06, 2024 05:41 PM Reporting Lab: [address] [address] Performing Lab: [address] [place] [address] CHOLESTEROL 183 mg/dL TRIGLYCERIDE 115 mg/dL 0-150 LDL calculated 120 mg/dL 0-129 CHOL/HDL 4.6 HDL CHOLESTEROL 40 mg/dL 40-60 May 24, 2024 07:39 AM [facility] TSH Specimen Type: SERUM No comment entered. Ordering Provider: OLIVA PÉREZ Report Released Date/Time: May 06, 2024 05:41 PM Reporting Lab: [facility] [address] [facility] [address] Performing Lab: [address] [address] TSH 3.73 u[IU]/mL 0.35-5.00 May 24, 2024 07:39 AM [facility] URINALYSIS CLEAN CATCH Specimen Type: URINE Comment: If Glucose = >500 and Ketones are positive, please alert the Physician. Ordering Provider: OLIVA PÉREZ Report Released Date/Time: May 06, 2024 05:41 PM Reporting Lab: [address] [address] Performing Lab: [address] [address] UA COLOR Light-Yellow Yellow UA APPEARANCE Clear Clear UA GLUCOSE Normal mg/dL Negative UA KETONES NEGATIVE mg/dL Negative UA BLOOD NEGATIVE mg/dL Negative UA PROTEIN NEGATIVE mg/dL Negative UA NITRITE NEGATIVE mg/dL Negative UA BILIRUBIN NEGATIVE mg/dL Negative UA SPECIFIC GRAVITY 1.020 1.016-1.022 UA pH 5.5 5.0-9.0 UA UROBILINOGEN Normal mg/dL <2.0 UA LEUKOCYTE NEGATIVE Negative May 24, 2024 07:39 AM [facility] CBC AND DIFF (AUTO) Specimen Type: BLOOD No comment entered. Ordering Provider: OLIVA PÉREZ Report Released Date/Time: May 06, 2024 05:41 PM Reporting Lab: [facility] [address] [facility] [address] Performing Lab: [address] [address] WBC 8.44 10*3/uL 4.50-11.00 RBC 5.28 10*6/uL [...] 10*3/uL 0.00-0.00 May 24, 2024 07:39 AM [facility] URIC ACID Specimen Type: SERUM No comment entered. Ordering Provider: OLIVA PÉREZ Report Released Date/Time: May 06, 2024 05:41 PM Reporting Lab: [facility] [address] [facility] [address] Performing Lab: [address] [address] URIC ACID 4.6 mg/dL 3.5-7.2 Social History: Smoking Status (Most current) and [...] VA-TOBACCO NEVER USED [place] [facility] Tobacco Use History This section includes a history of the smoking, or tobacco-related health factors, that were collected on or before the date of the Encounter. The data comes from the [place] facility where the Encounter took place. Date/Time Smoking Status/Tobacco Use Comment F acility Jan 27, 2023 10:00 AM VA-TOBACCO NEVER USED [place] [facility] Jan 06, 2022 09:00 AM VA-TOBACCO NEVER USED [place] [facility] Dec 31, 2020 08:00 AM VA-TOBACCO NEVER USED [place] [facility] Dec 27, 2019 09:48 AM VA-TOBACCO NEVER USED [place] [facility] Jun 30, 2018 08:41 AM VA-TOBACCO NEVER USED [place] [facility] Dec 23, 2017 07:46 AM LIFETIME NON-TOBACCO USER [facility] [place] [facility] Dec 22, 2016 08:06 AM LIFETIME NON-TOBACCO USER [facility] [place] [facility] Dec 24, 2015 08:36 AM LIFETIME NON-TOBACCO USER [facility] [place] [facility] Jun 19, 2004 01:52 PM LIFETIME NON-SMOKER [facility] [place] [facility] Jun 19, 2004 01:52 PM LIFETIME NON-TOBACCO USER [facility] [place] [facility] Jun 19, 2004 01:34 PM LIFETIME NON-SMOKER [facility] [place] [facility] Jun 19, 2004 01:34 PM LIFETIME NON-TOBACCO USER [facility] [place] [facility] Advance Directives: All historical and current [...] May 20, 2006 ADVANCE DIRECTIVE [facility] Encounter Notes: All associated encounter notes [...] REQUIRED Electronically Filed: 05/30/2024 by: NIKOLE MONTAÑO [facility]
--- OUTSIDE RECORDS SUMMARY | 2024-09-21 09:02 | XMS_ITS | Encounter Summary ---
Author Name [place] Address [address] [place] [address] Care Team Providers Care Floor Covering Printer Assistant Name Role Phone OLIVA PÉREZ Primary Care [...] Relationship to Policy Root TOMER BOWMANBS OF COUNT INCLUDES THE [facility] Estrogen Gene Test GE Apr 03, 2009 [id number] [phone] FRANCIS MANCIA SPOUSE BCBS [facility] BLUE* Apr 03, 2009 [id number] BLANCHE, JANET SPOUSE BCBS [facility] Platfora GE Apr 03, 2009 [id number] FRANCIS MANCIA SPOUSE EXPRESS SCRIPTS ([id number]) PRESCRIPT ION L4TA* Apr 03, 2009 L4TA [id number] FRANCIS MANCIA SPOUSE EXPRESS SCRIP[employer] ([id number]) PRESCRIPT ION L4TA* Apr 03, 2009 L4TA [id number] FRANCIS MANCIA SPOUSE [employer] SCRIPTS ([id number]) PRESCRIPT ION Apr 03, 2009 L4TA [id number] FRANCIS MANCIA SPOUSE MEDICARE (WNR) MEDICARE (M) PART B Jun 04, 2020 PART B [id number] RAÚL MANCIA PATIENT MEDICARE (WNR) MEDICARE (M) PART A Oct 04, 2006 PART A [id number] RAÚL MANCIA PATIENT MEDICARE (WNR) MEDICARE (M) PART A Oct 04, 2006 PART A [id number] RAÚL MANCIA PATIENT Selected Encounter This [...] 27, 2024 08:00 AM AMBULATORY - MEDICINE [facility] [place] [facility] Aug 16, 2024 10:00 AM AMBULATORY MEDICINE [facility] [facility] Aug 18, 2024 09:15 AM AMBULATORY MEDICINE [facility] [place] [facility] Oct 18, 2024 10:00 AM AMBULATORY MEDICINE [facility] Lab Results: +/- 30 days of [...] Range Comment May 24, 2024 07:39 AM [facility] TSH Specimen Type: SERUM No comment entered. Ordering Provider: OLIVA PÉREZ Report Released Date/Time: May 06, 2024 05:41 PM Reporting Lab: [address] [address] Performing Lab: [address] [address] TSH 3.73 u[IU]/mL 0.35-5.00 May 24, 2024 07:39 AM [facility] LIVER FUNCTION Specimen Type: SERUM No comment entered. Ordering Provider: OLIVA PÉREZ Report Released Date/Time: May 06, 2024 05:41 PM Reporting Lab: [address] [address] Performing Lab: [address] [address] PROTEIN,TOTAL 7.1 g/dL 6.0-8.3 ALBUMIN 3.5 g/dL 3.5-5.0 ALKALINE PHOSPHATASE 233 U/L H 40-150 AST 21 U/L 5-34 ALT 16 U/L BILIRUBIN, TOTAL 0.4 mg/dL 0.2-1.2 May 24, 2024 07:39 AM [facility] BASIC METABOLIC PANEL (fasting) Specimen Type: SERUM No comment entered. Ordering Provider: OLIVA PÉREZ Report Released Date/Time: May 06, 2024 05:41 PM Reporting Lab: [address] [address] Performing Lab: [address] [address] UREA NITROGEN 23 mg/dL 7-25 GLUCOSE 109 mg/dL H 65-100 SODIUM 137 mmol/L 135-145 POTASSIUM 4.3 mmol/L 3.5-5.0 CHLORIDE 103 mmol/L 100-110 CO2 23 meq/L 20-30 CREATININE, Serum 0.83 mg/dL 0.50-1.40 eGFR(CKD-EPI 2020) 90 mL/min >60 May 24, 2024 07:39 AM [facility] URIC ACID Specimen Type: SERUM No comment entered. Ordering Provider: OLIVA PÉREZ Report Released Date/Time: May 06, 2024 05:41 PM Reporting Lab: [facility] [address] [facility] [address] Performing Lab: [facility] [address] [facility] [address] URIC ACID 4.6 mg/dL 3.5-7.2 May 24, 2024 07:39 AM [facility] LIPID PANEL FASTING Specimen Type: SERUM No comment entered. Ordering Provider: OLIVA PÉREZ Report Released Date/Time: May 06, 2024 05:41 PM Reporting Lab: [facility] [address] [facility] [address] Performing Lab: [address] [address] CHOLESTEROL 183 mg/dL TRIGLYCERIDE 115 mg/dL 0-150 LDL calculated 120 mg/dL 0-129 CHOL/HDL 4.6 HDL CHOLESTEROL 40 mg/dL 40-60 May 24, 2024 07:39 AM [facility] URINALYSIS CLEAN CATCH Specimen Type: URINE Comment: If Glucose = >500 and Ketones are positive, please alert the Physician. Ordering Provider: OLIVA PÉREZ Report Released Date/Time: May 06, 2024 05:41 PM Reporting Lab: [address] [address] Performing Lab: [address] [address] UA COLOR Light-Yellow Yellow UA APPEARANCE Clear Clear UA GLUCOSE Normal mg/dL Negative UA KETONES NEGATIVE mg/dL Negative UA BLOOD NEGATIVE mg/dL Negative UA PROTEIN NEGATIVE mg/dL Negative UA NITRITE NEGATIVE mg/dL Negative UA BILIRUBIN NEGATIVE mg/dL Negative UA SPECIFIC GRAVITY 1.020 1.016-1.022 UA pH 5.5 5.0-9.0 UA UROBILINOGEN Normal mg/dL <2.0 UA LEUKOCYTE NEGATIVE Negative May 24, 2024 07:39 AM [facility] CBC AND DIFF (AUTO) Specimen Type: BLOOD No comment entered. Ordering Provider: OLIAV PÉREZ Report Released Date/Time: May 06, 2024 05:41 PM Reporting Lab: [facility] [address] [facility] [address] Performing Lab: [facility] [address] [facility] [address] WBC 8.44 10*3/uL 4.50-11.00 RBC 5.28 10*6/uL [...] [place] [facility] Tobacco [...] LIFETIME NON-TOBACCO USER [place] [facility] Advance [...] ADVANCE DIRECTIVE MARINA FAJARDO [place] [facility] Encounter Notes: All associated encounter [...] REQUIRED Electronically Filed: 07/04/2024 by: MARILIN AUGUSTIN MOVIE WRITER MARILIN AUGUSTIN [place] [facility]
--- OUTSIDE RECORDS SUMMARY | 2024-09-21 09:02 | XMS_ITS | Encounter Summary ---
Author Name [facility] [place] Address [address] [place] [address] Care Team Providers Care Cabinet Professional Name Role Phone OLIVA PÉREZ Primary Care [...] Relationship to Policy Root TOMER BOWMANBS OF [facility] Fash[employer]olic GE Apr 03, 2009 [id number] FRANCIS MANCIA SPOUSE BCBS [facility] BLUE* Apr 03, 2009 [id number] BLANCHE, JANET SPOUSE BCBS [facility] [employer] GE Apr 03, 2009 [id number] FRANCIS MANCIA SPOUSE EXPRESS SCRIPTS ([id number]) PRESCRIPT ION L4TA* Apr 03, 2009 L4TA [id number] FRANCIS MANCIA SPOUSE [employer] SCRIPTS ([id number]) PRESCRIPT ION L4TA* Apr 03, 2009 L4TA [id number] FRANCIS MANCIA SPOUSE [employer] SCRIPTS ([id number]) PRESCRIPT ION Apr 03, 2009 L4TA [id number] FRANCIS MANCIA SPOUSE MEDICARE (WNR) MEDICARE (M) PART B Jun 04, 2020 PART B [id number] [phone] RAÚL MANCIA PATIENT MEDICARE (WNR) MEDICARE (M) PART A Oct 04, 2006 PART A [id number] RAÚL MANCIA PATIENT MEDICARE (WNR) MEDICARE (M) PART A Oct 04, 2006 PART A [id number] [phone] RAÚL MANCIA PATIENT Selected Encounter This [...] activities for the patient from all [place] treatmentfacilities. This section includes future appointments and [...] 27, 2024 08:00 AM AMBULATORY - MEDICINE [facility] [place] [facility] Aug 16, 2024 10:00 AM AMBULATORY MEDICINE [facility] [place] [facility] Aug 18, 2024 09:15 AM AMBULATORY MEDICINE [facility] [place] [facility] Oct 18, 2024 10:00 AM AMBULATORY MEDICINE [facility] Lab Results: +/- 30 days [...] Range Comment May 24, 2024 07:39 AM [facility] TSH Specimen Type: SERUM No comment entered. Ordering Provider: OLIVA PÉREZ Report Released Date/Time: May 06, 2024 05:41 PM Reporting Lab: [facility] [address] [facility] [address] Performing Lab: [address] [address] TSH 3.73 u[IU]/mL 0.35-5.00 May 24, 2024 07:39 AM [facility] LIPID PANEL FASTING Specimen Type: SERUM No comment entered. Ordering Provider: OLVIA PÉREZ Report Released Date/Time: May 06, 2024 05:41 PM Reporting Lab: [address] [address] Performing Lab: [address] [address] CHOLESTEROL 183 mg/dL TRIGLYCERIDE 115 mg/dL 0-150 LDL calculated 120 mg/dL 0-129 CHOL/HDL 4.6 HDL CHOLESTEROL 40 mg/dL 40-60 May 24, 2024 07:39 AM [facility] LIVER FUNCTION Specimen Type: SERUM No comment entered. Ordering Provider: OLIVA PÉREZ Report Released Date/Time: May 06, 2024 05:41 PM Reporting Lab: [address] [address] Performing Lab: [address] [address] PROTEIN,TOTAL 7.1 g/dL 6.0-8.3 ALBUMIN 3.5 g/dL 3.5-5.0 ALKALINE PHOSPHATASE 233 U/L H 40-150 AST 21 U/L 5-34 ALT 16 U/L BILIRUBIN, TOTAL 0.4 mg/dL 0.2-1.2 May 24, 2024 07:39 AM [facility] BASIC METABOLIC PANEL (fasting) Specimen Type: SERUM No comment entered. Ordering Provider: OLIVA PÉREZ Report Released Date/Time: May 06, 2024 05:41 PM Reporting Lab: [address] [address] Performing Lab: [address] [address] UREA NITROGEN 23 mg/dL 7-25 GLUCOSE 109 mg/dL H 65-100 SODIUM 137 mmol/L 135-145 POTASSIUM 4.3 mmol/L 3.5-5.0 CHLORIDE 103 mmol/L 100-110 CO2 23 meq/L 20-30 CREATININE, Serum 0.83 mg/dL 0.50-1.40 eGFR(CKD-EPI 2020) 90 mL/min >60 May 24, 2024 07:39 AM [facility] URIC ACID Specimen Type: SERUM No comment entered. Ordering Provider: OLIVA PÉREZ Report Released Date/Time: May 06, 2024 05:41 PM Reporting Lab: [address] [address] Performing Lab: [address] [address] URIC ACID 4.6 mg/dL 3.5-7.2 May 24, 2024 07:39 AM [facility] URINALYSIS CLEAN CATCH Specimen Type: URINE Comment: If Glucose = >500 and Ketones are positive, please alert the Physician. Ordering Provider: OLIVA PÉREZ Report Released Date/Time: May 06, 2024 05:41 PM Reporting Lab: [address] [address] Performing Lab: [address] [address] UA COLOR Light-Yellow Yellow UA APPEARANCE Clear Clear UA GLUCOSE Normal mg/dL Negative UA KETONES NEGATIVE mg/dL Negative UA BLOOD NEGATIVE mg/dL Negative UA PROTEIN NEGATIVE mg/dL Negative UA NITRITE NEGATIVE mg/dL Negative UA BILIRUBIN NEGATIVE mg/dL Negative UA SPECIFIC GRAVITY 1.020 1.016-1.022 UA pH 5.5 5.0-9.0 UA UROBILINOGEN Normal mg/dL <2.0 UA LEUKOCYTE NEGATIVE Negative May 24, 2024 07:39 AM [facility] CBC AND DIFF (AUTO) Specimen Type: BLOOD No comment entered. Ordering Provider: OLIVA PÉREZ Report Released Date/Time: May 06, 2024 05:41 PM Reporting Lab: [facility] [address] [facility] [address] Performing Lab: [facility] [address] [facility] [address] WBC 8.44 10*3/uL 4.50-11.00 RBC 5.28 10*6/uL [...] VA-TOBACCO NEVER USED [place] [facility] Tobacco Use History This section includes a history of the smoking, or tobacco-related health factors, that were collected on or before the date of the Encounter. The data comes from the [place] facility where the Encounter took place. Date/Time Smoking Status/Tobacco Use Comment F acility Jan 27, 2023 10:00 AM VA-TOBACCO NEVER USED [place] [place] [facility] Jan 06, 2022 09:00 AM VA-TOBACCO NEVER USED [place] [facility] [place] [facility] Dec 31, 2020 08:00 AM VA-TOBACCO NEVER USED [place] [facility] [place] [facility] Dec 27, 2019 09:48 AM VA-TOBACCO NEVER USED [place] [facility] [place] [facility] Jun 30, 2018 08:41 AM VA-TOBACCO NEVER USED [place] [facility] [place] [facility] Dec 23, 2017 07:46 AM LIFETIME NON-TOBACCO USER [place] [facility] [place] [facility] Dec 22, 2016 08:06 AM LIFETIME NON-TOBACCO USER [place] [facility] [place] [facility] Dec 24, 2015 08:36 AM LIFETIME NON-TOBACCO USER [place] [facility] [place] [facility] Jun 19, 2004 01:52 PM LIFETIME NON-SMOKER [place] [facility] Jun 19, 2004 01:52 PM LIFETIME NON-TOBACCO USER [place] [facility] [place] [facility] Jun 19, 2004 01:34 PM LIFETIME NON-SMOKER [place] [place] [facility] Jun 19, 2004 01:34 PM LIFETIME NON-TOBACCO USER [place] [facility] Advance Directives: All historical and current Section [...] 20, 2006 ADVANCE DIRECTIVE MARINA FAJARDO [place] CNT [facility] Encounter Notes: All associated encounter [...] REQUIRED Electronically Filed: 07/12/2024 by: ROSHNI CAMPBELL [facility]
--- OUTSIDE RECORDS SUMMARY | 2024-09-21 09:03 | XMS_ITS | Encounter Summary ---
Author Name [place] Address [address] [place] [address] Care Team Providers Care Overcaster Name Role Phone OLIVA PEGUERO Primary Care [...] Relationship to Policy Root TOMER [facility] TechniScan GE Apr 03, 2009 [id number] BLANCHE, JANET SPOUSE BCBS [facility] BLUE* Apr 03, 2009 [id number] [phone] BLANCHE, JANET SPOUSE BCBS [facility] [id number] GE Apr 03, 2009 [id number] FRANCIS MANCIA SPOUSE EXPRESS SCRIPTS ([id number]) PRESCRIPT ION L4TA* Apr 03, 2009 L4TA [id number] FRANCIS MANCIA SPOUSE [employer] S[employer]IP[employer] ([id number]) PRESCRIPT ION L4TA* Apr 03, 2009 L4TA [id number] FRANCIS MANCIA SPOUSE [employer] S[employer] ([id number]) PRESCRIPT ION Apr 03, 2009 L4TA [id number] FRANCIS MANCIA SPOUSE MEDICARE (WNR) MEDICARE (M) PART B Jun 04, 2020 PART B [id number] [phone] RAÚL MANCIA PATIENT MEDICARE (WNR) MEDICARE (M) PART A Oct 04, 2006 PART A [id number] RAÚL MANCIA PATIENT MEDICARE (WNR) MEDICARE (M) PART A Oct 04, 2006 PART A [id number] [phone] RAÚL MANCIA PATIENT Selected Encounter This section includes the information on record at [place] for the Encounter. Date/Time Encounter Type Encounter Description Reason Pro vider Source Aug 04, 2024 10:25 PM Outpatient Encounter PRIMARY CARE/MEDICINE IHE Encounter Template Text not used by [place] Plan of Treatment: Future Appointments (+ 6 months) and Future Tests (+/- 45 days) The Plan of Treatment section includes future care activities for the patient from all [place] treatmentfacilities. This section includes future appointments and future orders which are active, pending or scheduled. Future Appointments This section includes appointments that were scheduled to occur 6 months from the date of the Encounter, up to a maximum of 20 appointments. The data comes from all [facility]. Appointment Date/Time Appointment Type Appointme nt Facility Name Aug 16, 2024 10:00 AM AMBULATORY - [facility] [place] [facility] Aug 18, 2024 09:15 AM AMBULATORY MEDICINE [facility] [place] [facility] Oct 18, 2024 10:00 AM [facility] Active, Pending, and Scheduled Orders This section includes a listing of several types of active, pending, and scheduled orders, including clinic medications orders, diagnostic test orders, procedure orders and consult orders; where the start date of the order is 45 days before the date of the Encounter or 45 days after the date of theEncounter. The data comes from all [place] treatment [facility]. Test Date/Time Test Type Test Details Facility Name Aug 04, 2024 10:27 PM Consult Order COMMUNITY CARE-PULMONARY Cons Therapy Assistant's Choice [place] [facility] Social History: Smoking Status (Most current) and Tobacco Use (All prior to encounter date) This section includes the most current, and the historical, smoking and tobacco- related health factors from the [place] facility where the Encounter took place. Current Smoking Status This section includes the most current smoking, or tobacco-related health factor, from the [place] facility where the Encounter took place. Date/Time Current Smoking Status Comment Facil ity Jan 11, 2024 10:00 AM VA-TOBACCO NEVER USED [place] [facility] Tobacco Use History This section includes a history of the smoking, or tobacco-related health factors, that were collected on or before the date of the Encounter. The data comes from the [place] facility where the Encounter took place. Date/Time [...] ALL of a patient's completed or amended [place] Advance and Rescinded Directives. The entries below indicate that a directive exists for the patient, but an actual copy is not included with this document. The data comes from all [place] facilities. Date Advance Directives Provider Source May [...] Staff Physician Signed: 08/04/2024 22:28 OLIVA PEGUERO [facility]
--- OUTSIDE RECORDS SUMMARY | 2024-09-21 09:03 | XMS_ITS ---
Author Name [place] Address [address] [place] [address] Care Team Providers Care Tool Sharpener Name Role Phone OLIVA PÉREZ Primary Care [...] TOMER ROBLES OF [facility] [employer] GE Apr 03, 2009 [id number] FRANCIS MANCIA SPOUSE BCBS [facility]UE* Apr 03, 2009 [id number] FRANCIS MANCIA SPOUSE BCBS [facility] [employer] GE Apr 03, 2009 [id number] [phone] FRANCIS MANCIA SPOUSE [employer] ([id number]) PRESCRIPT ION L4TA* Apr 03, 2009 L4TA [id number] FRANCIS MANCIA SPOUSE [employer] ([id number]) PRESCRIPT ION L4TA* Apr 03, 2009 L4TA [id number] FRANCIS MANCIA SPOUSE [employer] ([id number]) PRESCRIPT ION Apr 03, 2009 L4TA [id number] FRANCIS MANCIA SPOUSE MEDICARE (WNR) MEDICARE (M) PART B Jun 04, 2020 PART B [id number] [phone] RAÚL MANCIA PATIENT MEDICARE (WNR) MEDICARE (M) PART A Oct 04, 2006 PART A [id number] RAÚL MANCIA PATIENT MEDICARE (WNR) MEDICARE (M) PART A Oct 04, 2006 PART A [id number] RAÚL MANCIA PATIENT Selected Encounter This section includes the information on record at [place] for the Encounter. 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 Date/Time Primary/Secondary Diagnosis Diagnosis Name Provider Source Aug 16, 2024 10:20 AM PRIMARY Congenital pes cavus, unspecified foot GREWAL[facility] Plan of Treatment: Future Appointments [...] Appointment Type Appointme nt Facility Name Aug 18, 2024 09:15 AM AMBULATORY - MEDIC[facility] [place] [facility] Oct 18, 2024 10:00 AM AMBULATORY - MEDICINE [facility] Active, Pending, and Scheduled Orders This [...] 10:27 PM Consult Order COMMUNITY CARE-PULMONARY Cons Radioactivity Technician's Choice [place] [facility] Social History: Smoking Status (Most [...] VA-TOBACCO NEVER USED [place] [facility] Tobacco Use History This section includes a history of the smoking, or tobacco-related health factors, that were collected on or before the date of the Encounter. The data comes from the [place] facility where the Encounter took place. Date/Time Smoking Status/Tobacco Use Comment F acility Jan 27, 2023 10:00 AM VA-TOBACCO NEVER USED [place] [facility] Jan 06, 2022 09:00 AM VA-TOBACCO NEVER USED [place] [facility] Dec 31, 2020 08:00 AM VA-TOBACCO NEVER USED [place] [facility] Dec 27, 2019 09:48 AM VA-TOBACCO NEVER USED [place] [facility] Jun 30, 2018 08:41 AM VA-TOBACCO NEVER USED [place] [place] [facility] Dec 23, 2017 07:46 AM LIFETIME NON-TOBACCO USER [place] [facility] [place] [facility] Dec 22, 2016 08:06 AM LIFETIME NON-TOBACCO USER [place] [facility] [place] [facility] Dec 24, 2015 08:36 AM LIFETIME NON-TOBACCO USER [place] [facility] [place] [facility] Jun 19, 2004 01:52 PM LIFETIME NON-SMOKER [place] [place] [facility] Jun 19, 2004 01:52 PM LIFETIME NON-TOBACCO USER [place] [place] [facility] Jun 19, 2004 01:34 PM LIFETIME NON-SMOKER [place] [facility] Jun 19, 2004 01:34 PM LIFETIME NON-TOBACCO USER [facility] Advance Directives: All historical and current Section [...] May 20, 2006 ADVANCE DIRECTIVE MARINA FAJARDO [facility] Encounter Notes: All associated encounter notes This section contains the clinical notes associated to the Encounter. Date/Time Encounter Note(s) Provider Source Aug 16, 2024 10:18 AM NURSING OUTPATIENT NOTE: LOCAL TITLE: NURSING/SPECIALTY CLINIC NOTE STANDARD TITLE: NURSING OUTPATIENT NOTE DATE OF NOTE: AUG 16, 2024@10:18 ENTRY DATE: AUG 16, 2024@10:19:01 AUTHOR: ALISA GREWAL EXP COSIGNER: URGENCY: STATUS: COMPLETED F: Shoe Fitting D/A: Patient with pes cavus received and was fitted for shoes. Instructed on the proper breaking in of the shoes. Patient informed to call with any problems or concerns. /delores/ ALISA GREWAL [facility] Edger Machine Setter Signed: 08/16/2024 10:20 ALISA GREWAL [facility]
--- OUTSIDE RECORDS SUMMARY | 2024-09-21 09:03 | XMS_ITS | Encounter Summary ---
Author Name [facility] [place] Address [address] [place] [address] Care Team Providers Care Six Horse Hitch Driver Name Role Phone OLIVA PEGUERO Primary Care [...] Relationship to Policy Root TOMER ROBLES OF [facility] [employer] GE Apr 03, 2009 [id number] [phone] BLANCHE, JANET SPOUSE BCBS [facility] BLUE* Apr 03, 2009 [id number] BLANCHE, JANET SPOUSE BCBS [facility] ALICE Active DSP GE Apr 03, 2009 [id number] FRANCIS MANCIA SPOUSE [employer] ([id number]) PRESCRIPT ION L4TA* Apr 03, 2009 L4TA [id number] FRANCIS MANCIA SPOUSE [employer] ([id number]) PRESCRIPT ION L4TA* Apr 03, 2009 L4TA [id number] FRANCIS MANCIA SPOUSE [employer] ([id number]) PRESCRIPT ION Apr 03, 2009 L4TA [id number] FRANCIS MANCIA SPOUSE MEDICARE (WNR) MEDICARE (M) PART B Jun 04, 2020 PART B [id number] RAÚL MANCIA PATIENT MEDICARE (WNR) MEDICARE (M) PART A Oct 04, 2006 PART A [id number] RAÚL MANCIA PATIENT MEDICARE (WNR) MEDICARE (M) PART A Oct 04, 2006 PART A [id number] RAÚL MANCIA PATIENT Selected Encounter This section includes the information on record at [place] for the Encounter. Date/Time Encounter Type Encounter Description Reason Pro vider Source Aug 30, 2024 09:31 PM Outpatient Encounter PRIMARY CARE/MEDICINE IHE Encounter Template Text not used by [place] Plan of Treatment: Future Appointments (+ 6 months) and Future Tests (+/- 45 days) The Plan of Treatment section includes future care activities for the patient from all [place] [facility]. This section includes future appointments and future orders which are active, pending or scheduled. Future Appointments This section includes appointments that were scheduled to occur 6 months from the date of the Encounter, up to a maximum of 20 appointments. The data comes from all [place] treatment facilities. Appointment Date/Time Appointment Type Appointme nt Facility Name Oct 18, 2024 10:00 AM [facility]UL[facility] February 14, 2025 08:00 AM [facility] Active, Pending, and Scheduled Orders This section includes a listing of several types of active, pending, and scheduled orders, including clinic medications orders, diagnostic test orders, procedure orders and consult orders; where the start date of the order is 45 days before the date of the Encounter or 45 days after the date of theEncounter. The data comes from all [place] treatment facilities. Test Date/Time Test Type Test Details Facility Name Aug 04, 2024 10:27 PM Consult Order COMMUNITY CARE-PULMONARY Cons Fireworks Display Specialist's Choice [facility] [place] [facility] Social History: Smoking Status (Most current) [...] NEVER USED [facility] [place] [facility] Tobacco Use History This section includes a history of the smoking, or tobacco-related health factors, that were collected on or before the date of the Encounter. The data comes from the [place] facility where the Encounter took place. Date/Time Smoking Status/Tobacco Use Comment Yadiel acility Jan 27, 2023 10:00 AM VA-TOBACCO NEVER USED [facility] [place] [facility] Jan 06, 2022 09:00 AM VA-TOBACCO NEVER USED [facility] [place] [facility] Dec 31, 2020 08:00 AM VA-TOBACCO NEVER USED [facility] [place] [facility] Dec 27, 2019 09:48 AM VA-TOBACCO NEVER USED [facility] [place] [facility] Jun 30, 2018 08:41 AM VA-TOBACCO NEVER USED [facility] [place] [facility] Dec 23, 2017 07:46 AM LIFETIME NON-TOBACCO USER [facility] [place] [facility] Dec 22, 2016 08:06 AM LIFETIME NON-TOBACCO USER [facility] [place] [facility] Dec 24, 2015 08:36 AM LIFETIME NON-TOBACCO USER [facility] [place] [facility] Jun 19, 2004 01:52 PM LIFETIME NON-SMOKER [facility] [place] [facility] Jun 19, 2004 01:52 PM LIFETIME NON-TOBACCO USER [facility] [place] [facility] Jun 19, 2004 01:34 PM LIFETIME NON-SMOKER [facility] [place] [facility] Jun 19, 2004 01:34 PM LIFETIME NON-TOBACCO USER [facility] [place] [facility] Advance Directives: All historical and current Section Date Range: From patient's date of to the date document was created. This section includes ALL of a patient's completed or amended [place] Advance and Rescinded Directives. The entries below indicate that a directive exists for the patient, but an actual copy is not included with this document. The data comes from all [place] facilities. Date Advance Directives Provider Source May 20, 2006 ADVANCE DIRECTIVE MARINA FAJARDO [facility] Encounter Notes: All associated encounter notes This section contains the clinical notes associated to the Encounter. Date/Time Encounter Note(s) Provider Source Aug 30, 2024 09:31 PM NONVA CONSULT: LOCAL TITLE: MD/OUTSIDE CONSULT REPORT SUMMARY STANDARD TITLE: NONVA CONSULT DATE OF NOTE: AUG 30, 2024@21:31 ENTRY DATE: AUG 30, 2024@21:31:54 AUTHOR: OLIVA PEGUERO EXP COSIGNER: URGENCY: STATUS: COMPLETED 07-31-[address] 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
--- OUTSIDE RECORDS SUMMARY | 2024-09-21 09:03 | XMS_ITS | Encounter Summary ---
Author Name [place] Address [address] [place] [address] Care Team Providers Care Photoengraver Name Role Phone OLIVA EPGUERO Primary Care Provider Unavailabl e Insurance Providers: [...] Relationship to Policy Root TOMER BOWMANBS OF [facility] ORGANIZ [facility] [email or web address] GE Apr 03, 2009 [id number] BLANCHE, JANET SPOUSE BCBS [facility]* Apr 03, 2009 [id number] [phone] BLANCHE, JANET SPOUSE BCBS [facility] GE Apr 03, 2009 [id number] FRANCIS MANCIA SPOUSE [employer] ([id number]) PRESCRIPT ION L4TA* Apr 03, 2009 L4TA [id number] FRANCIS MANCIA SPOUSE [employer] ([id number]) PRESCRIPT ION L4TA* Apr 03, 2009 L4TA [id number] FRANCIS MANCIA SPOUSE [employer] ([id number]) PRESCRIPT ION Apr 03, 2009 L4TA [id number] [phone] FRANCIS MANCIA SPOUSE MEDICARE (WNR) MEDICARE (M) PART B Jun 04, 2020 PART B [id number] RAÚL MANCIA PATIENT MEDICARE (WNR) MEDICARE (M) PART A Oct 04, 2006 PART A [id number] RAÚL MANCIA PATIENT MEDICARE (WNR) MEDICARE (M) PART A Oct 04, 2006 PART A [id number] RAÚL MANCIA PATIENT Selected Encounter This section includes the information on record at [place] for the Encounter. Date/Time Encounter Type Encounter Description Reason Pro vider Source Aug 16, 2024 04:17 PM Outpatient Encounter ADMIN PAT ACTIVTIES (MASNONCT) IHE Encounter Template Text not used by [place] Plan of Treatment: Future Appointments (+ 6 months) and Future Tests (+/- 45 days) The Plan of Treatment section includes future care activities for the patient from all [place] [facility]. This section includes future appointments [...] 18, 2024 09:15 AM AM[facility]ULATORY [facility] [place] [facility] Oct 18, 2024 10:00 AM AM[facility]ULATORY - [facility] Active, Pending, and Scheduled Orders This section includes a listing of several types of active, pending, and scheduled orders, including clinic medications orders, diagnostic test orders, procedure orders and consult orders; where the start date of the order is 45 days before the date of the Encounter or 45 days after the date of theEncounter. The data comes from all [place] treatment facilities. Test Date/Time Test Type Test Details Facility Name Aug 04, 2024 10:27 PM Consult Order COMMUNITY CARE-PULMONARY Cons Proof Technician's Choice [facility] [place] [facility] Social History: Smoking Status (Most current) [...] 11, 2024 10:00 AM VA-TOBACCO NEVER USED [place] [facility] [place] [facility] Tobacco Use History This section includes a history of the smoking, or tobacco-related health factors, that were collected on or before the date of the Encounter. The data comes from the [place] facility where the Encounter took place. Date/Time Smoking Status/Tobacco Use Comment Yadiel acility Jan 27, 2023 10:00 AM VA-TOBACCO NEVER USED [facility] [place] [facility] Jan 06, 2022 09:00 AM VA-TOBACCO NEVER USED [facility] [place] [facility] Dec 31, 2020 08:00 AM VA-TOBACCO NEVER USED [facility] [place] [facility] Dec 27, 2019 09:48 AM VA-TOBACCO NEVER USED [facility] [place] [facility] Jun 30, 2018 08:41 AM VA-TOBACCO NEVER USED [facility] [place] [facility] Dec 23, 2017 07:46 AM LIFETIME NON-TOBACCO USER [facility] [place] [facility] Dec 22, 2016 08:06 AM LIFETIME NON-TOBACCO USER [facility] [place] [facility] Dec 24, 2015 08:36 AM LIFETIME NON-TOBACCO USER [facility] [place] [facility] Jun 19, 2004 01:52 PM LIFETIME NON-SMOKER [facility] [place] [facility] Jun 19, 2004 01:52 PM LIFETIME NON-TOBACCO USER [facility] [place] [facility] Jun 19, 2004 01:34 PM LIFETIME NON-SMOKER [facility] [place] [facility] Jun 19, 2004 01:34 PM LIFETIME NON-TOBACCO USER [facility] [place] [facility] Advance Directives: All historical and [...] Provider Source May 20, 2006 ADVANCE DIRECTIVE TANAMARINA P [facility] Encounter Notes: All associated encounter notes This section contains the clinical notes associated to the Encounter. Date/Time Encounter Note(s) Provider Source Aug 16, 2024 04:17 PM MEDICATION MGT NOT E: LOCAL TITLE: MEDICATION RENEWAL STANDARD TITLE: MEDICATION MGT NOTE DATE OF NOTE: AUG 16, 2024@16:17 ENTRY DATE: AUG 16, 2024@16:18:06 AUTHOR: CINDA HANKINS EXP COSIGNER: URGENCY: STATUS: COMPLETED MEDICATION RENEWAL Has ADDENDA Hello we have a requesting medication renewal for mailing please please renew order if appropriate Active Outpatient Medications (including Supplies): Active Outpatient Medications Status = 1) 6 [id number] SIMVASTATIN 80MG TAB 45 A> 05 11-15 0 90 /delores/ CINDA [facility] NURSE Signed: 08/16/2024 16:18 Receipt Acknowledged By: 08/16/2024 16:30 /delores/ Oliva Peguero MD Staff Physician 08/16/2024 ADDENDUM STATUS: COMPLETED Done. /delores/ Oliva Peguero MD Staff Physician Signed: 08/16/2024 16:30 CINDA HANKINS [facility]
--- OUTSIDE RECORDS SUMMARY | 2024-09-21 09:03 | XMS_ITS ---
Author Name [facility] [place] Organization [place] Address [address] [place] [address] Care Team Providers Care Chief Telephone Operator Name Role Phone OLIVA PÉREZ Primary [...] Relationship to Policy Root TOMER BOWMANBS OF [facility] [employer] GE Apr 03, 2009 [id number] [phone] BLANCHEFRANCIS HERNANDEZ SPOUSE BCBS [facility] BLUE* Apr 03, 2009 [id number] BLANCHE, JANET SPOUSE BCBS [facility] [employer] GE Apr 03, 2009 [id number] [phone] FRANCIS MANCIA SPOUSE [employer] ([id number]) PRESCRIPT ION L4TA* Apr 03, 2009 L4TA [id number] FRANCIS MANCIA SPOUSE [employer] ([id number]) PRESCRIPT ION L4TA* Apr 03, 2009 L4TA [id number] FRANCIS MANCIA SPOUSE [employer] ([id number]) PRESCRIPT ION Apr 03, 2009 L4TA [id number] FRANCIS MANCIA SPOUSE MEDICARE (WNR) MEDICARE (M) PART B Jun 04, 2020 PART B [id number] [phone] RAÚL MANCIA PATIENT MEDICARE (WNR) MEDICARE (M) PART A Oct 04, 2006 PART A [id number] [phone] RAÚL MANCIA PATIENT MEDICARE (WNR) MEDICARE (M) PART A Oct 04, 2006 PART A [id number] RAÚL MANCIA PATIENT Selected Encounter This section includes the information on record at [place] for the Encounter. 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 Date/Time Primary/Secondary Diagnosis Diagnosis Name Provider Source Jul 28, 2024 10:28 AM PRIMARY Congenital pes cavus, unspecified foot [facility] [place] [facility] Jul 28, 2024 10:28 AM SECONDARY Neuralgia and neuritis, unspecified [facility] [place] [facility] Jul 28, 2024 10:28 AM SECONDARY Post-traumatic osteoarthritis, right ankle and foot [facility]ARY MALONEY [facility] [place] [facility] Plan of Treatment: Future Appointments (+ [...] 16, 2024 10:00 AM AMBULATORY - MEDICINE [place] C [facility] [place] [facility] Aug 18, 2024 09:15 AM AMBULATORY - MEDICINE [place] C [facility] [place] [facility] Oct 18, 2024 10:00 AM AMBULATORY - MEDICINE [place] C [facility] [place] [facility] Active, Pending, and Scheduled Orders This section includes a listing of several types of active, pending, and scheduled orders, including clinic medications orders, diagnostic test orders, procedure orders and consult orders; where the start date of the order is 45 days before the date of the Encounter or 45 days after the date of theEncounter. The data comes from all [place] treatment facilities. Test Date/Time Test Type Test Details Facility Name Aug 04, 2024 10:27 PM Consult Order COMMUNITY CARE-PULMONARY Cons Pet Store Merchandiser's Choice [place] [facility] [place] [facility] Social History: Smoking Status (Most current) [...] VA-TOBACCO NEVER USED [place] [facility] [place] [facility] Tobacco Use History This section includes a history of the smoking, or tobacco-related health factors, that were collected on or before the date of the Encounter. The data comes from the [place] facility where the Encounter took place. Date/Time Smoking Status/Tobacco Use Comment F acility Jan 27, 2023 10:00 AM VA-TOBACCO NEVER USED [facility] [place] [facility] Jan 06, 2022 09:00 AM VA-TOBACCO NEVER USED [facility] [place] [facility] Dec 31, 2020 08:00 AM VA-TOBACCO NEVER USED [facility] [place] [facility] Dec 27, 2019 09:48 AM VA-TOBACCO NEVER USED [facility] [place] [facility] Jun 30, 2018 08:41 AM VA-TOBACCO NEVER USED [facility] [place] [facility] Dec 23, 2017 07:46 AM LIFETIME NON-TOBACCO USER [facility] [place] [facility] Dec 22, 2016 08:06 AM LIFETIME NON-TOBACCO USER [facility] [place] [facility] Dec 24, 2015 08:36 AM LIFETIME NON-TOBACCO USER [facility] [place] [facility] Jun 19, 2004 01:52 PM LIFETIME NON-SMOKER [facility] [place] [facility] Jun 19, 2004 01:52 PM LIFETIME NON-TOBACCO USER [facility] [place] [facility] Jun 19, 2004 01:34 PM LIFETIME NON-SMOKER [facility] [place] [facility] Jun 19, 2004 01:34 PM LIFETIME NON-TOBACCO USER [place] [facility] Advance Directives: All historical and current Section Date Range: From patient's date of to the date document was created. This section includes ALL of a patient's completed or amended [place] Advance and Rescinded Directives. The entries below indicate that a directive exists for the patient, but an actual copy is not included with this document. The data comes from all [place] facilities. Date Advance Directives Provider Source May 20, 2006 ADVANCE DIRECTIVE MARINA FAJARDO [facility] RL [facility] Encounter Notes: All associated encounter notes This section contains the clinical notes associated to the Encounter. Date/Time Encounter Note(s) Provider Source Aug 09, 2024 03:08 PM LETTERS: LOCAL TITLE: PATIENT LETTER (B) STANDARD TITLE: LETTERS DATE OF NOTE: AUG 09, 2024@15:08 ENTRY DATE: AUG 09, 2024@15:08:19 AUTHOR: JOSEPH GREWAL EXP COSIGNER: URGENCY: STATUS: COMPLETED [facility] RAÚL MANCIA [address], [place], [address] AUG 09, 2024 Dear RAÚL MANCIA, Your shoes have arrived at the [facility] located at [address] [place] [address]. Please call [phone] ext. [phone] for Joseph or [phone]. [phone] for Gabriela to make a shoe fitting appointment. Clinic Hours are 8:30am-3:30pm. Walk-ins may not be accommodated. We hope to [place] [address] JOSEPH GREWAL [place] [facility] [place] [facility] Jul 27, 2024 08:14 AM PODIATRY NOTE: LOCAL TITLE: PODIATRY NOTE STANDARD TITLE: PODIATRY NOTE DATE OF NOTE: JUL 27, 2024@08:14 ENTRY DATE: JUL 27, 2024@08:14:49 AUTHOR: ZACHARY MALONEY EXP COSIGNER: URGENCY: STATUS: COMPLETED Podiatry [facility] Follow up Provider: Zachary Maloney Date: JUL 27, 2024 RAÚL MANCIA [address] [place] [id number] Apr 78 MALE [phone] PATIENT PHONE - Primary Care: OLIVA PÉREZ [...] esophagus C15 04/23/2023 OLIVA PÉREZ Anemia (SCT [id number]) D64.9, Onset 01/27/2023 OLIVA PÉREZ Weight loss [...] list may not be complete. Please check [facility]. FACILITY ALLERGY/ADR -------- No Remote Allergy/ADR Data available for this patient [place] [facility] [place] [facility] No Known Allergies PE: Well-appearing well-nourished [...] foot -Stable Plan: -Reorder custom orthotics and [place] shoes -Negotiated with patient to return in [...] as results of the physical exam and peoplesoft consultant opinions and recommendations as sought. Alternatives [...] -The on this visit was given information [employer] service and encouraged to enroll if not already having done so. /delores/ ZACHARY MALONEY DPM PODIATRY ATTENDING Signed: 07/28/2024 10:28 ZACHARY MALONEY CN[facility]L [facility]
--- OUTSIDE RECORDS SUMMARY | 2024-09-21 09:04 | XMS_ITS ---
Author Organization [facility] Address [address] [place] [id number] Care Team Providers Care Electric Furnace Operator Name Role Phone Vincent Peguero MD Primary Care Provider Unavailab Alexy Vazquez Unavailable [phone] REASON FOR VISIT ANEMIA, IRON DEFICIENCY, ANEMIA Encounters Encounter Location Date Provider Diagnosis [facility] [address] [place] [address] 04/01/2023 Alexy Fitzgerald PLAN OF TREATMENT No Information
--- OUTSIDE RECORDS SUMMARY | 2024-09-21 09:04 | XMS_ITS ---
Author Organization [facility] Address [address] [place] [address] Care Team Providers Care Community Resource Consultant Name Role Phone Vincent Peguero MD Primary Care Provider Unavailab Alexy Vazquez Unavailable [phone] REASON FOR VISIT ANEMIA, IRON DEFICIENCY, ANEMIA Encounters Encounter Location Date Provider Diagnosis [facility] [address] [place] [address] 06/03/2023 Alexy Fitzgerald PLAN OF TREATMENT No Information
--- OUTSIDE RECORDS SUMMARY | 2024-09-21 09:04 | XMS_ITS | Patient Health Record ---
Author Organization [facility] Address [address] [place] [phone] Care Team Providers Care Pointer Machine Operator Name Role Phone Sudhir OTTO, Vincent Primary Care Provider UnavailAlexy Rodriguez Unavailable [phone] REASON FOR REFERRAL No Information SOCIAL HISTORY Sex Assigned At : Social History Observation Description Sex Assigned At Unknown PROBLEMS Problem Type ICD Code Onset Dates Problem Status W/U Status Risk SNOMED Code Notes Problem Diverticulitis (K57.92) Active confirmed [id number] PLAN OF TREATMENT No Information Insurance Providers Payer Name Payer Address Payer Phone Subscriber Number Group Number Insured Name Patient Relationship to Insured Coverage Start Date Coverage End Date [facility] [employer] [address] [place] [phone] [id number] RAÚL MANCIA Self - patient is the insured
== END 2024-09-21 09:16 | disposition home or self-care (01) ==
PROVIDERS: PCP Internal Medicine; Visit Provider Hospitalist
DX: J18.9 Pneumonia, unspecified organism (principal); R91.1 Solitary pulmonary nodule; C15.9 Malignant neoplasm of esophagus, unspecified; R59.0 Localized enlarged lymph nodes; I31.39 Other pericardial effusion (noninflammatory)
CPT/HCPCS: 99215; G2211

== ENCOUNTER → 2024-09-21 08:42 | Outpatient (BNVA) | payer OTHER, SELFPAY | PROVIDERS: PCP Internal Medicine; Visit Provider Hospitalist | DX: J18.9 Pneumonia, unspecified organism (principal); C15.9 Malignant neoplasm of esophagus, unspecified; R59.0 Localized enlarged lymph nodes; R91.8 Other nonspecific abnormal finding of lung field; I31.39 Other pericardial effusion (noninflammatory) | CPT/HCPCS: 99212 ==

== ENCOUNTER → 2024-10-17 10:47 | Outpatient (REF) | payer OTHER, SELFPAY ==
--- NOTE | 2024-10-17 10:50 | CA_ITS ---
Transthoracic Echocardiogram Patient (Last, First, Middle): Fabricio Osullivan, Gender: Male Date of : 1945 Age: 79 Procedure Date: 10/17/2024 Procedure Type: Transthoracic Echocardiogram Location: OP Height: 182.88 cm Weight: 90.72 kg BSA: 2.13 m2 Heart Rate: bpm BP: 106 / 60 mmHg Litigation Manager: TO Referring MD: Dale Beach MD Symptoms: I31.39 - Other pericardial effusion (noninflammatory) Study Quality: Fair/Contrast ECG Rhythm: Sinus Conclusions: - The left ventricular systolic function is low normal. The visually estimated ejection fraction is between 50-55%. - There is mild to moderate mitral valve regurgitation. - There is a moderate circumferential pericardial effusion. Maximum thickness about 1.3cm. Findings Procedure Information Contrast agent, definity, is being given per protocol without apparent complications. Left Ventricle Normal left ventricular cavity size. There is normal left ventricular wall thickness. The left ventricular systolic function is low normal. The visually estimated ejection fraction is between 50-55%. There is no evidence of regional wall motion abnormalities. Evidence suggests grade I (mild) diastolic dysfunction. Right Ventricle Normal right ventricular cavity size and systolic function. Atria Both atria are normal in size. Aortic Valve There is a normal trileaflet aortic valve. There is mild calcification of the aortic valve. There is no aortic valve stenosis. There is no aortic valve regurgitation. Mitral Valve There is mild anterior mitral leaflet thickening. There is mild mitral annular calcification. There is mild to moderate mitral valve regurgitation. There is no mitral valve stenosis. Pulmonic Valve The pulmonic valve was not well visualized. Tricuspid Valve There is no tricuspid valve regurgitation. Tricuspid regurgitation envelope is inadequate for calculation of right ventricular systolic pressure. Great Vessels The asc aorta is normal in size. Venous The inferior vena cava is normal in size and collapses less than 50% with inspiration. Pericardium/Pleural There is a moderate circumferential pericardial effusion. There are no definitive echocardiographic findings of tamponade physiology. Maximum thickness about 1.3cm. Prior Study Comparison No prior study available for comparison. Measurements 2D Linear Measurements IVSd: 0.89 0.6-0.9/0.6-1.0 cm LVIDd: 3.85 3.9-5.3/4.2-5.9 cm LVIDd Index: 1.81 2.4-3.2/2.2-3.1 cm/m2 LVIDs: 2.67 2.0-3.6 cm LVPWd: 0.73 0.7-1.1 cm LA Diam: 2.70 2.7-3.8/3.0-4.0 cm LAIDs Index: 1.27 1.5-2.3 cm/m2 LV Mass: 110.68 67-162/88-224 g LV Mass Index: 51.96 43-95/49-115 g/m2 LVOT Diam: 2.20 3.0+(-)1.3 cm 2D Systolic Function EF 4C: 54.60 >55% EF 2C: 43.60 >55% EF BiP: 49.20 >55% Mitral Valve MV VTI: 0.26 MV Pk Maciel: 1.29 MV Mn Maciel: 0.70 MV Pk Grad: 7.00 MV Mn Grad: 2.00 MV Pk E: 0.66 MV PK A: 0.88 MV Decel Time: 237.00 E/A: 0.80 E'Lateral: 6.42 E'Medial: 4.57 E/E' Med: 14.50 E/E' Lat: 10.30 PHT: 69.00 MVA PHT: 3.19 MVA Continuity: 2.86 Decel Spencer: 2.80 Aortic Valve AoV Pk Maciel: 1.13 AoV Mn Maciel: 0.78 AoV VTI: 0.21 AoV Pk Grad: 5.00 Aov Mn Grad: 3.00 NATHAN Cont.VTI: 3.56 LVOT LVOT Pk Maciel: 0.97 LVOT Mn Maciel: 0.71 LVOT VTI: 0.20 LVOT Pk Grad: 4.00 LVOT Mn Grad: 2.00 LVOT Diam: 2.20 LVOT Area: 3.80 Diastolic Function MV Pk E: 0.66 MV Pk A: 0.88 E/A: 0.80 E'Medial: 4.57 E/E' Med: 14.50 E' Laterial: 6.42 E/E' Lat: 10.30 Right Ventricle TAPSE (mm): 20.40 TVS' Maciel: 14.10 Tricuspid Valve RA Press: 3.00 Great Vessels Aorta Sinus of Valsalva: 4.12 2.0-3.[address] Ridge: 2.91 1.7-3.4 cm Ao Asc: 3.60 2.1-3.4 cm Updated in Other Vendor System with Status of Final Asim Lainez MD electronically signed on 10/18/2024 2:42:09 PM with status of Final
--- OUTSIDE RECORDS SUMMARY | 2024-10-17 12:39 | XMS_ITS | Continuity of Care Document ---
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 It does not include entries that were removed or entered in error. Problem Status Onset Date Problem Type Date of Resolution Comments Source Anemia (SCT [id number]) Active 10/04/19 23 Condition Jan 27, 2023 [...] pes cavus, unspecified foot Active Diagnosis [facility] [facility] Diagnosis: ICD-10-CM C15.9 Malignant neoplasm of esophagus, unspecified Active Diagnosis [facility] N [place] [facility] Diagnosis: ICD-10-CM Z46.0 Encounter for fit/adjst of spectacles and contact lenses Active Diagnosis [facility] [place] [facility] Diagnosis: ICD-10-CM H25.813 Combined forms of age-related cataract, bilateral Active Diagnosis [facility] [facility] Diagnosis: ICD-10-CM R73.01 Impaired fasting glucose Active Diagnosis [facility] Diagnosis: ICD-10-CM Z23 Encounter for immunization Active Diagnosis [facility] J[facility] Diagnosis: ICD-10-CM R63.4 Abnormal weight loss Active Diagnosis [facility] ([id number]) Diagnosis: ICD-10-CM Z71.3 Dietary counseling and surveillance Active Diagnosis [facility] JAMES RN CHARISSE [facility] Medications Combined list of outpatient medications from [...] DAY FOR GOUT ORAL DISCONT INUED 12/31/2023 [id number] NAPOLEON PÉREZ 2022 180 [facility] ALLOPURINOL 100MG TAB TAKE TWO TABLETS BY MOUTH EVERY DAY FOR GOUT ORAL 10/08/2024 [id number] 4 NAPOLEON PÉREZ 2023 180 [facility] METOPROLOL TARTRATE 25MG TAB TAKE ONE-HALF TABLET BY MOUTH TWICE DAILY FOR BLOOD PRESSURE /HEART ORAL DISCONT INUED BY PROVIDE R 10/08/2024 [id number] NAPOLEON PÉREZ 2023 90 [facility] METOPROLOL TARTRATE 25MG TAB TAKE ONE-HALF TABLET BY MOUTH TWICE DAILY FOR BLOOD PRESSURE /HEART ORAL DISCONT INUED 01/01/2024 [id number] NAPOLEON PÉREZ 2022 90 [facility] MOMETASONE FUROATE 100MCG/ACTU AT INHL,ORAL,1 20D,13GM INHALE 1 INHALATI ON BY MOUTH TWICE DAILY RESPIR ATORY (INHAL ATION) ACTIVE 06/16/2025 [id number] ADITYA HARRIS 2023 1 [facility] SIMVASTATIN 80MG TAB TAKE ONE-HALF TABLET BY MOUTH AT BEDTIME FOR CHOLESTE ROL ORAL SUSPEND ED 08/17/2025 [id number] NAPOLEON PÉREZ 2024 45 [facility] SIMVASTATIN 80MG TAB TAKE ONE-HALF TABLET BY MOUTH AT BEDTIME FOR CHOLESTE ROL ORAL DISCONT INUED 10/08/2024 [id number] 4 NAPOLEON PÉREZ 2023 45 [facility] SIMVASTATIN 80MG TAB TAKE ONE-HALF TABLET BY MOUTH AT BEDTIME FOR CHOLESTE ROL ORAL DISCONT INUED 01/01/2024 [id number] NAPOLEON PÉREZ 2022 45 [facility] Immunizations Combined list of available immunizations from the Department of Defense and Veterans Affairs facilities. Immunization Series Date Given Administered By Site Reaction Lot Number CVX Code Drug Manager Meat Status Comments Source COVID-19 (MODERNA), MRNA, LNP-S, PF, 50 MCG/0.5 ML (AGES 12+ YEARS) 6 2023 [facility] [place] LEFT DELTO ID [id number] 312 complet ed [facility] RSV, BIVALENT, PROTEIN SUBUNIT RSVPREF, DILUENT RECONSTITUTED , 0.5 ML, PF 2022 MARK BANSAL LEFT DELTO ID [id number] 305 complet ed [facility] INFLUENZA, HIGH-DOSE, QUADRIVALENT 2022 JULIA MEDINA LEFT DELTO ID [id number] 197 complet ed [facility] COVID-19 (MODERNA), MRNA, LNP-S, BIVALENT BOOSTER, PF, 50 MCG/0.5 ML OR 25MCG/0.25 ML DOSE 1 2021 229 complet ed MOD; [id number]; 3 [facility] INFLUENZA VACCINE, QUADRIVALENT, ADJUVANTED 2021 205 complet ed [facility] COVID-19 (MODERNA), MRNA, LNP-S, PF, 100 MCG/0.5ML DOSE OR 50 MCG/0.25ML DOSE 4 2021 207 complet ed MOD; [id number]; 2 [facility] COVID-19 (MODERNA), MRNA, LNP-S, PF, 100 MCG/0.5ML DOSE OR 50 MCG/0.25ML DOSE 3 2020 207 complet ed [facility] INFLUENZA VACCINE, QUADRIVALENT, ADJUVANTED 2020 [...] May 06, 2024 05:41 PM Reporting Lab: [facility] [place] [facility] [address] [address] Performing Lab: [facility] [place] [facility] [address] [address] [facility] [place] [facility] LIVER FUNCTION PROTEIN [MASS/VOLU ME] IN SERUM OR PLASMA 7.1 g/dL 6.0 - 8.3 05/24 Specimen Type: SERUM No comment entered. Ordering Provider: FLAQUITO PÉREZ Report Released Date/Time: May 06, 2024 05:41 PM Reporting Lab: [facility] [place] [facility] [address] [address] Performing Lab: [facility] [place] [facility] [address] [address] [facility] [place] [facility] LIVER FUNCTION ALBUMIN [MASS/VOLU ME] IN SERUM OR PLASMA 3.5 g/dL 3.5 - 5.0 05/24 Specimen Type: SERUM No comment entered. Ordering Provider: FLAQUITO PÉREZ Report Released Date/Time: May 06, 2024 05:41 PM Reporting Lab: [facility] [place] [facility] [address] [address] Performing Lab: [facility] [place] [facility] [address] [address] [facility] [place] [facility] LIVER FUNCTION ALKALINE PHOSPHATAS E [ENZYMATIC ACTIVITY/V OLUME] IN SERUM OR PLASMA 233 U/L 40 - 150 05/24 H Specimen Type: SERUM No comment entered. Ordering Provider: FLAQUITO PÉREZ Report Released Date/Time: May 06, 2024 05:41 PM Reporting Lab: [facility] [place] [facility] [address] [address] Performing Lab: [facility] [place] [facility] [address] [address] [facility] [place] [facility] LIVER FUNCTION ASPARTATE AMINOTRANS FERASE [ENZYMATIC ACTIVITY/V OLUME] IN SERUM OR PLASMA 21 U/L 5 - 34 05/24 Specimen Type: SERUM No comment entered. Ordering Provider: FLAQUITO PÉREZ Report Released Date/Time: May 06, 2024 05:41 PM Reporting Lab: [facility] [place] [facility] [address] [address] Performing Lab: [facility] [place] [facility] [address] [address] [facility] [place] [facility] LIVER FUNCTION ALANINE AMINOTRANS FERASE [ENZYMATIC ACTIVITY/V OLUME] IN SERUM OR PLASMA 16 U/L 05/24 Specimen Type: SERUM No comment entered. Ordering Provider: FLAQUITO PÉREZ Report Released Date/Time: May 06, 2024 05:41 PM Reporting Lab: [facility] [place] [facility] [address] [address] Performing Lab: [facility] [place] [facility] [address] [address] [facility] [place] [facility] LIVER FUNCTION BILIRUBIN. TOTAL [MASS/VOLU ME] IN SERUM OR PLASMA 0.4 mg/dL 0.2 - 1.2 05/24 Specimen Type: SERUM No comment entered. Ordering Provider: FLAQUITO PÉREZ Report Released Date/Time: May 06, 2024 05:41 PM Reporting Lab: [facility] [place] [facility] [address] [address] Performing Lab: [facility] [place] [facility] [address] [address] [facility] [place] [facility] BASIC METABOLI C PANEL (fasting ) UREA NITROGEN [MASS/VOLU ME] IN SERUM OR PLASMA 23 mg/dL 7 - 25 05/24 Specimen Type: SERUM No comment entered. Ordering Provider: FLAQUITO PÉREZ Report Released Date/Time: May 06, 2024 05:41 PM Reporting Lab: [facility] [place] [facility] [address] [address] Performing Lab: [facility] [place] [address] [address] [facility] [facility] BASIC METABOLI C PANEL (fasting ) GLUCOSE [MASS/VOLU ME] IN SERUM OR PLASMA 109 mg/dL 65 - 100 05/24 H Specimen Type: SERUM No comment entered. Ordering Provider: FLAQUITO PÉREZ Report Released Date/Time: May 06, 2024 05:41 PM Reporting Lab: [facility] [place] [address] [address] Performing Lab: [facility] [place] [facility] [address] [address] [facility] BASIC METABOLI C PANEL (fasting ) SODIUM [MOLES/VOL UME] IN SERUM OR PLASMA 137 mmol/L 135 - 145 05/24 Specimen Type: SERUM No comment entered. Ordering Provider: FLAQUITO PÉREZ Report Released Date/Time: May 06, 2024 05:41 PM Reporting Lab: [facility] [place] [address] [address] Performing Lab: [facility] [place] [address] [address] [facility] [place] [facility] BASIC METABOLI C PANEL (fasting ) POTASSIUM [MOLES/VOL UME] IN SERUM OR PLASMA 4.3 mmol/L 3.5 - 5.0 05/24 Specimen Type: SERUM No comment entered. Ordering Provider: FLAQUITO PÉREZ Report Released Date/Time: May 06, 2024 05:41 PM Reporting Lab: [facility] [place] [facility] [address] [address] Performing Lab: [facility] [place] [facility] [address] [address] [facility] [place] [facility] BASIC METABOLI C PANEL (fasting ) CHLORIDE [MOLES/VOL UME] IN SERUM OR PLASMA 103 mmol/L 100 - 110 05/24 Specimen Type: SERUM No comment entered. Ordering Provider: FLAQUITO PÉREZ Report Released Date/Time: May 06, 2024 05:41 PM Reporting Lab: [facility] [place] [facility] [address] [address] Performing Lab: [facility] [place] [address] [address] [facility] [place] [facility] BASIC METABOLI C PANEL (fasting ) CARBON DIOXIDE, TOTAL [MOLES/VOL UME] IN SERUM OR PLASMA 23 meq/L 20 - 30 05/24 Specimen Type: SERUM No comment entered. Ordering Provider: FLAQUITO PÉREZ Report Released Date/Time: May 06, 2024 05:41 PM Reporting Lab: [facility] [place] [facility] [address] [address] Performing Lab: [facility] [place] [address] [address] [facility] [place] [place] [facility] BASIC METABOLI C PANEL (fasting ) CREATININE [MASS/VOLU ME] IN SERUM OR PLASMA 0.83 mg/dL 0.50 - 1.40 05/24 Specimen Type: SERUM No comment entered. Ordering Provider: FLAQUITO PÉREZ Report Released Date/Time: May 06, 2024 05:41 PM Reporting Lab: [facility] [place] [facility] [address] [address] Performing Lab: [facility] [place] [address] [address] [facility] [place] [facility] BASIC METABOLI C PANEL (fasting ) GLOMERULAR FILTRATION RATE/1.73 SQ M.PREDICTE D [VOLUME RATE/AREA] IN SERUM, PLASMA OR BLOOD BY CREATININE -BASED FORMULA (CKD-EPI 2020) 90 mL/min 60 05/24 Specimen Type: SERUM No comment entered. Ordering Provider: FLAQUITO PÉREZ Report Released Date/Time: May 06, 2024 05:41 PM Reporting Lab: [facility] [place] [address] [address] Performing Lab: [facility] [place] [address] [address] [facility] [place] [facility] LIPID PANEL FASTING CHOLESTERO L [MASS/VOLU ME] IN SERUM OR PLASMA 183 mg/dL 05/24 Specimen Type: SERUM No comment entered. Ordering Provider: FLAQUITO PÉREZ Report Released Date/Time: May 06, 2024 05:41 PM Reporting Lab: [facility] [place] [address] [address] Performing Lab: [facility] [place] [address] [address] [facility] [place] [facility] LIPID PANEL FASTING TRIGLYCERI DE [MASS/VOLU ME] IN SERUM OR PLASMA 115 mg/dL 0 - 150 05/24 Specimen Type: SERUM No comment entered. Ordering Provider: FLAQUITO PÉREZ Report Released Date/Time: May 06, 2024 05:41 PM Reporting Lab: [facility] [place] [address] [address] Performing Lab: [facility] [place] [address] [address] [facility] [place] [facility] LIPID PANEL FASTING CHOLESTERO L IN LDL [MASS/VOLU ME] IN SERUM OR PLASMA BY CALCULATIO N 120 mg/dL 0 - 129 05/24 Specimen Type: SERUM No comment entered. Ordering Provider: FLAQUITO PÉREZ Report Released Date/Time: May 06, 2024 05:41 PM Reporting Lab: [facility] [place] [address] [address] Performing Lab: [facility] [place] [facility] [address] [address] [facility] [address] [facility] LIPID PANEL FASTING CHOLESTERO L.TOTAL/CH OLESTEROL IN HDL [MASS RATIO] IN SERUM OR PLASMA 4.6 05/24 Specimen Type: SERUM No comment entered. Ordering Provider: FLAQUITO PÉREZ Report Released Date/Time: May 06, 2024 05:41 PM Reporting Lab: [facility] [place] [facility] [address] [address] Performing Lab: [facility] [place] [facility] [address] [address] [facility] LIPID PANEL FASTING CHOLESTERO L IN HDL [MASS/VOLU ME] IN SERUM OR PLASMA 40 mg/dL 40 - 60 05/24 Specimen Type: SERUM No comment entered. Ordering Provider: FLAQUITO PÉREZ Report Released Date/Time: May 06, 2024 05:41 PM Reporting Lab: [facility] [place] [facility] [address] [address] Performing Lab: [facility] [address] [address] [facility] URIC ACID URATE [MASS/VOLU ME] IN SERUM OR PLASMA 4.6 mg/dL 3.5 - 7.2 05/24 Specimen Type: SERUM No comment entered. Ordering Provider: FLAQUITO PÉREZ Report Released Date/Time: May 06, 2024 05:41 PM Reporting Lab: [facility] [place] [facility] [address] [address] Performing Lab: [facility] [address] [address] [facility] URINALYS IS CLEAN CATCH COLOR OF URINE Light-Ye llow 05/24 Specimen Type: URINE Comment: If Glucose = >500 and Ketones are positive, please alert the Physician. Ordering Provider: FLAQUITO PÉREZ Report Released Date/Time: May 06, 2024 05:41 PM Reporting Lab: [facility] [place] [facility] [address] [address] Performing Lab: [facility] [place] [facility] [address] [address] [facility] URINALYS IS CLEAN CATCH APPEARANCE OF URINE Clear 05/24 Specimen Type: URINE Comment: If Glucose = >500 and Ketones are positive, please alert the Physician. Ordering Provider: FLAQUITO PÉREZ Report Released Date/Time: May 06, 2024 05:41 PM Reporting Lab: [facility] [place] [facility] [address] [address] Performing Lab: [facility] [place] [facility] [address] [address] [facility] [place] [facility] URINALYS IS CLEAN CATCH GLUCOSE [MASS/VOLU ME] IN URINE Normalmg /dL 05/24 Specimen Type: URINE Comment: If Glucose = >500 and Ketones are positive, please alert the Physician. Ordering Provider: FLAQUITO PÉREZ Report Released Date/Time: May 06, 2024 05:41 PM Reporting Lab: [facility] [place] [facility] [address] [address] Performing Lab: [facility] [place] [facility] [address] [address] [facility] [place] [facility] URINALYS IS CLEAN CATCH KETONES [MASS/VOLU ME] IN URINE BY TEST STRIP NEGATIVE mg/dL 05/24 Specimen Type: URINE Comment: If Glucose = >500 and Ketones are positive, please alert the Physician. Ordering Provider: FLAQUITO PÉREZ Report Released Date/Time: May 06, 2024 05:41 PM Reporting Lab: [facility] [place] [facility] [address] [address] Performing Lab: [facility] [facility] [address] [address] [facility] [place] [facility] URINALYS IS CLEAN CATCH ERYTHROCYT ES [PRESENCE] IN URINE SEDIMENT BY LIGHT MICROSCOPY NEGATIVE mg/dL 05/24 Specimen Type: URINE Comment: If Glucose = >500 and Ketones are positive, please alert the Physician. Ordering Provider: FLAQUITO PÉREZ Report Released Date/Time: May 06, 2024 05:41 PM Reporting Lab: [facility] [place] [facility] [address] [address] Performing Lab: [facility] [place] [facility] [address] [address] [facility] [place] [facility] URINALYS IS CLEAN CATCH PROTEIN [MASS/VOLU ME] IN URINE BY TEST STRIP NEGATIVE mg/dL 05/24 Specimen Type: URINE Comment: If Glucose = >500 and Ketones are positive, please alert the Physician. Ordering Provider: FLAQUITO PÉREZ Report Released Date/Time: May 06, 2024 05:41 PM Reporting Lab: [facility] [place] [address] [address] Performing Lab: [facility] [place] [facility] [address] [address] [facility] [place] [facility] URINALYS IS CLEAN CATCH NITRITE [PRESENCE] IN URINE NEGATIVE mg/dL 05/24 Specimen Type: URINE Comment: If Glucose = >500 and Ketones are positive, please alert the Physician. Ordering Provider: FLAQUITO PÉREZ Report Released Date/Time: May 06, 2024 05:41 PM Reporting Lab: [facility] [place] [facility] [address] [address] Performing Lab: [facility] [place] [facility] [address] [address] [facility] [place] [facility] URINALYS IS CLEAN CATCH BILIRUBIN. TOTAL [PRESENCE] IN URINE NEGATIVE mg/dL 05/24 Specimen Type: URINE Comment: If Glucose = >500 and Ketones are positive, please alert the Physician. Ordering Provider: FLAQUITO PÉREZ Report Released Date/Time: May 06, 2024 05:41 PM Reporting Lab: [facility] [place] [facility] [address] [address] Performing Lab: [facility] [place] [facility] [address] [address] [facility] [place] [facility] URINALYS IS CLEAN CATCH SPECIFIC GRAVITY OF URINE BY REFRACTOME TRY 1.020 1.016 - 1.022 05/24 Specimen Type: URINE Comment: If Glucose = >500 and Ketones are positive, please alert the Physician. Ordering Provider: FLAQUITO PÉREZ Report Released Date/Time: May 06, 2024 05:41 PM Reporting Lab: [facility] [place] [facility] [address] [address] Performing Lab: [facility] [address] [address] [facility] [place] [facility] URINALYS IS CLEAN CATCH PH OF URINE BY TEST STRIP 5.5 5.0 - 9.0 05/24 Specimen Type: URINE Comment: If Glucose = >500 and Ketones are positive, please alert the Physician. Ordering Provider: FLAQUITO PÉREZ Report Released Date/Time: May 06, 2024 05:41 PM Reporting Lab: [facility] [place] [facility] [address] [address] Performing Lab: [facility] [place] [facility] [address] [address] [facility] URINALYS IS CLEAN CATCH UROBILINOG EN [MASS/VOLU ME] IN URINE BY TEST STRIP Normalmg /dL <2.0 - 2.0 05/24 Specimen Type: URINE Comment: If Glucose = >500 and Ketones are positive, please alert the Physician. Ordering Provider: FLAQUITO PÉREZ Report Released Date/Time: May 06, 2024 05:41 PM Reporting Lab: [facility] [place] [facility] [address] [address] Performing Lab: [facility] [address] [address] [facility] [place] [facility] URINALYS IS CLEAN CATCH LEUKOCYTE ESTERASE [PRESENCE] IN URINE BY TEST STRIP NEGATIVE 05/24 Specimen Type: URINE Comment: If Glucose = >500 and Ketones are positive, please alert the Physician. Ordering Provider: FLAQUITO PÉREZ Report Released Date/Time: May 06, 2024 05:41 PM Reporting Lab: [facility] [place] [facility] [address] [address] Performing Lab: [facility] [place] [facility] [address] [address] [facility] [place] [facility] CBC AND DIFF (AUTO) LEUKOCYTES [#/VOLUME] IN BLOOD BY AUTOMATED COUNT 8.44 10*3/uL 4.50 - 11.00 05/24 Specimen Type: BLOOD No comment entered. Ordering Provider: FLAQUITO PÉREZ Report Released Date/Time: May 06, 2024 05:41 PM Reporting Lab: [facility] [place] [facility] [address] [address] Performing Lab: [facility] [place] [facility] [address] [address] [facility] [place] [facility] CBC AND DIFF (AUTO) ERYTHROCYT ES [#/VOLUME] IN BLOOD BY AUTOMATED COUNT 5.28 10*6/uL 4.23 - 5.66 05/24 Specimen Type: BLOOD No comment entered. Ordering Provider: FLAQUITO PÉREZ Report Released Date/Time: May 06, 2024 05:41 PM Reporting Lab: [facility] [place] [facility] [address] [address] Performing Lab: [facility] [place] [facility] [address] [address] [facility] [place] [facility] CBC AND DIFF (AUTO) HEMOGLOBIN [MASS/VOLU ME] IN BLOOD 13.2 g/dL 12.8 - 17 05/24 Specimen Type: BLOOD No comment entered. Ordering Provider: FLAQUITO PÉREZ Report Released Date/Time: May 06, 2024 05:41 PM Reporting Lab: [facility] [place] [facility] [address] [address] Performing Lab: [facility] [place] [facility] [address] [address] [facility] [place] [facility] CBC AND DIFF (AUTO) HEMATOCRIT [VOLUME FRACTION] OF BLOOD BY AUTOMATED COUNT 41.0 39.2 - 50.4 05/24 Specimen Type: BLOOD No comment entered. Ordering Provider: FLAQUITO PÉREZ Report Released Date/Time: May 06, 2024 05:41 PM Reporting Lab: [facility] [place] [address] [address] Performing Lab: [facility] [place] [facility] [address] [address] [facility] [place] [facility] CBC AND DIFF (AUTO) MCV [ENTITIC VOLUME] BY AUTOMATED COUNT 77.7 fL 82 - 99 05/24 L Specimen Type: BLOOD No comment entered. Ordering Provider: FLAQUITO PÉREZ Report Released Date/Time: May 06, 2024 05:41 PM Reporting Lab: [facility] [address] Performing Lab: [facility] [place] [address] [address] [facility] [place] [facility] CBC AND DIFF (AUTO) MCHC [MASS/VOLU ME] BY AUTOMATED COUNT 32.2 g/dL 30.8 - 35.1 05/24 Specimen Type: BLOOD No comment entered. Ordering Provider: FLAQUITO PÉREZ Report Released Date/Time: May 06, 2024 05:41 PM Reporting Lab: [facility] [place] [address] [address] Performing Lab: [facility] [place] [address] [address] [facility] [place] [facility] CBC AND DIFF (AUTO) PLATELETS [#/VOLUME] IN BLOOD BY AUTOMATED COUNT 255 10*3/uL 140 - 360 05/24 Specimen Type: BLOOD No comment entered. Ordering Provider: FLAQUITO PÉREZ Report Released Date/Time: May 06, 2024 05:41 PM Reporting Lab: [facility] [place] [address] [address] Performing Lab: [facility] [address] [address] [facility] [place] [facility] CBC AND DIFF (AUTO) ERYTHROCYT E DISTRIBUTI ON WIDTH [RATIO] BY AUTOMATED COUNT 18.7 12.0 - 16.0 05/24 H Specimen Type: BLOOD No comment entered. Ordering Provider: FLAQUITO PÉERZ Report Released Date/Time: May 06, 2024 05:41 PM Reporting Lab: [facility] [place] [facility] [address] [facility] [address] Performing Lab: [facility] [place] [facility] [address] [facility] [address] [facility] [place] [facility] CBC AND DIFF (AUTO) MONOCYTES [#/VOLUME] IN BLOOD BY AUTOMATED COUNT 0.62 10*3/uL 0.30 - 1.10 05/24 Specimen Type: BLOOD No comment entered. Ordering Provider: FLAQUITO PÉREZ Report Released Date/Time: May 06, 2024 05:41 PM Reporting Lab: [facility] [place] [facility] [address] [facility] [address] Performing Lab: [facility] [place] [facility] [address] [facility] [address] [facility] [place] [facility] CBC AND DIFF (AUTO) MCH [ENTITIC MASS] BY AUTOMATED COUNT 25.0 pg 26.2 - 32.6 05/24 L Specimen Type: BLOOD No comment entered. Ordering Provider: FLAQUITO PÉREZ Report Released Date/Time: May 06, 2024 05:41 PM Reporting Lab: [facility] [place] [facility] [address] [facility] [address] Performing Lab: [facility] [place] [address] [address] [facility] [place] [facility] CBC AND DIFF (AUTO) NEUTROPHIL S/100 LEUKOCYTES IN BLOOD BY AUTOMATED COUNT 81.5 43.7 - 75.8 05/24 H Specimen Type: BLOOD No comment entered. Ordering Provider: FLAQUITO PÉREZ Report Released Date/Time: May 06, 2024 05:41 PM Reporting Lab: [facility] [place] [facility] [address] [address] Performing Lab: [facility] [place] [facility] [address] [address] [facility] [place] [facility] CBC AND DIFF (AUTO) LYMPHOCYTE S/100 LEUKOCYTES IN BLOOD BY AUTOMATED COUNT 10.2 14.0 - 42.3 05/24 L Specimen Type: BLOOD No comment entered. Ordering Provider: FLAQUITO PÉREZ Report Released Date/Time: May 06, 2024 05:41 PM Reporting Lab: [facility] [place] [facility] [address] [facility] [address] Performing Lab: [facility] [place] [facility] [address] [address] [facility] [facility] CBC AND DIFF (AUTO) MONOCYTES/ 100 LEUKOCYTES IN BLOOD BY AUTOMATED COUNT 7.3 5.1 - 13.7 05/24 Specimen Type: BLOOD No comment entered. Ordering Provider: FLAQUITO PÉREZ Report Released Date/Time: May 06, 2024 05:41 PM Reporting Lab: [facility] [place] [facility] [address] [address] Performing Lab: [facility] [place] [facility] [address] [facility] [address] [facility] [facility] CBC AND DIFF (AUTO) EOSINOPHIL S/100 LEUKOCYTES IN BLOOD BY AUTOMATED COUNT 0.0 0.4 - 6.8 05/24 L Specimen Type: BLOOD No comment entered. Ordering Provider: FLAQUITO PÉREZ Report Released Date/Time: May 06, 2024 05:41 PM Reporting Lab: [facility] [place] [facility] [address] [address] Performing Lab: [facility] [place] [facility] [address] [facility] [address] [facility] [place] [facility] CBC AND DIFF (AUTO) BASOPHILS/ 100 LEUKOCYTES IN BLOOD BY AUTOMATED COUNT 0.5 0.1 - 2.0 05/24 Specimen Type: BLOOD No comment entered. Ordering Provider: FLAQUITO PÉREZ Report Released Date/Time: May 06, 2024 05:41 PM Reporting Lab: [facility] [place] [facility] [address] [facility] [address] Performing Lab: [facility] [place] [facility] [address] [facility] [address] [facility] [place] [facility] CBC AND DIFF (AUTO) NEUTROPHIL S [#/VOLUME] IN BLOOD BY AUTOMATED COUNT 6.88 10*3/uL 2.20 - 7.60 05/24 Specimen Type: BLOOD No comment entered. Ordering Provider: FLAQUITO PÉREZ Report Released Date/Time: May 06, 2024 05:41 PM Reporting Lab: [facility] [facility] [address] [facility] [address] Performing Lab: [facility] [facility] [address] [address] [facility] [place] [facility] CBC AND DIFF (AUTO) LYMPHOCYTE S [#/VOLUME] IN BLOOD BY AUTOMATED COUNT 0.86 10*3/uL 1.00 - 3.20 05/24 L Specimen Type: BLOOD No comment entered. Ordering Provider: FLAQUITO PÉREZ Report Released Date/Time: May 06, 2024 05:41 PM Reporting Lab: [facility] [facility] [address] [facility] [address] Performing Lab: [facility] [address] [address] [facility] [place] [facility] CBC AND DIFF (AUTO) EOSINOPHIL S [#/VOLUME] IN BLOOD BY AUTOMATED COUNT 0.00 10*3/uL 0.03 - 0.44 05/24 L Specimen Type: BLOOD No comment entered. Ordering Provider: FLAQUITO PÉREZ Report Released Date/Time: May 06, 2024 05:41 PM Reporting Lab: [facility] [facility] [address] [facility] [address] Performing Lab: [facility] [place] [address] [address] [facility] [place] [facility] CBC AND DIFF (AUTO) BASOPHILS [#/VOLUME] IN BLOOD BY AUTOMATED COUNT 0.04 10*3/uL 0.01 - 0.13 05/24 Specimen Type: BLOOD No comment entered. Ordering Provider: FLAQUITO PÉREZ Report Released Date/Time: May 06, 2024 05:41 PM Reporting Lab: [facility] [facility] [address] [facility] [address] Performing Lab: [facility] [place] [facility] [address] [facility] [address] [facility] [facility] CBC AND DIFF (AUTO) IMMATURE GRANULOCYT ES/100 LEUKOCYTES IN BLOOD BY AUTOMATED COUNT 0.5 0.0 - 0.7 05/24 Specimen Type: BLOOD No comment entered. Ordering Provider: FLAQUITO PÉREZ Report Released Date/Time: May 06, 2024 05:41 PM Reporting Lab: [facility] [place] [address] [address] Performing Lab: [facility] [place] [address] [address] [facility] [place] [facility] CBC AND DIFF (AUTO) IMMATURE GRANULOCYT ES [#/VOLUME] IN BLOOD 0.04 10*3/uL 0.00 - 0.06 05/24 Specimen Type: BLOOD No comment entered. Ordering Provider: FLAQUITO PÉREZ Report Released Date/Time: May 06, 2024 05:41 PM Reporting Lab: [facility] [place] [address] [address] Performing Lab: [facility] [place] [facility] [address] [facility] [address] [facility] [facility] CBC AND DIFF (AUTO) NRBC % 0.0 0.0 - 0.0 05/24 Specimen Type: BLOOD No comment entered. Ordering Provider: FLAQUITO PÉREZ Report Released Date/Time: May 06, 2024 05:41 PM Reporting Lab: [facility] [place] [address] [address] Performing Lab: [facility] [place] [address] [facility] [facility] CBC AND DIFF (AUTO) NRBC, ABS 0.00 10*3/uL 0.00 - 0.00 05/24 Specimen Type: BLOOD No comment entered. Ordering Provider: FLAQUITO PÉREZ Report Released Date/Time: May 06, 2024 05:41 PM Reporting Lab: [facility] [place] [address] [address] Performing Lab: [facility] [place] [address] [address] [facility] [place] [facility] URIC ACID URATE [MASS/VOLU ME] IN SERUM OR PLASMA 5.3 mg/dL 3.5 - 7.2 01/04 Specimen Type: SERUM No comment entered. Ordering Provider: FLAQUITO PÉREZ Report Released Date/Time: Dec 31, 2023 11:06 AM Reporting Lab: [facility] [place] [address] [address] Performing Lab: [facility] [place] [address] [address] [facility] [place] [facility] URINALYS IS CLEAN CATCH COLOR OF URINE Light-Ye llow 01/04 Specimen Type: URINE Comment: If Glucose = >500 and Ketones are positive, please alert the Physician. Ordering Provider: FLAQUITO PÉREZ Report Released Date/Time: Dec 31, 2023 11:06 AM Reporting Lab: [facility] [place] [address] [address] Performing Lab: [facility] [place] [address] [address] [facility] [place] [facility] URINALYS IS CLEAN CATCH APPEARANCE OF URINE Clear 01/04 Specimen Type: URINE Comment: If Glucose = >500 and Ketones are positive, please alert the Physician. Ordering Provider: FLAQUITO PÉREZ Report Released Date/Time: Dec 31, 2023 11:06 AM Reporting Lab: [facility] [address] [address] Performing Lab: [facility] [place] [facility] [address] [facility] [address] [facility] [place] [facility] URINALYS IS CLEAN CATCH GLUCOSE [MASS/VOLU ME] IN URINE NEGATIVE mg/dL 01/04 Specimen Type: URINE Comment: If Glucose = >500 and Ketones are positive, please alert the Physician. Ordering Provider: FLAQUITO PÉREZ Report Released Date/Time: Dec 31, 2023 11:06 AM Reporting Lab: [facility] [place] [facility] [address] [facility] [address] Performing Lab: [facility] [place] [facility] [address] [facility] [address] [facility] [place] [facility] URINALYS IS CLEAN CATCH KETONES [MASS/VOLU ME] IN URINE BY TEST STRIP NEGATIVE mg/dL 01/04 Specimen Type: URINE Comment: If Glucose = >500 and Ketones are positive, please alert the Physician. Ordering Provider: FLAQUITO PÉREZ Report Released Date/Time: Dec 31, 2023 11:06 AM Reporting Lab: [facility] [facility] [address] [facility] [address] Performing Lab: [facility] [place] [facility] [address] [facility] [facility] [address] [facility] [place] [facility] URINALYS IS CLEAN CATCH ERYTHROCYT ES [PRESENCE] IN URINE SEDIMENT BY LIGHT MICROSCOPY NEGATIVE mg/dL 01/04 Specimen Type: URINE Comment: If Glucose = >500 and Ketones are positive, please alert the Physician. Ordering Provider: FLAQUITO PÉREZ Report Released Date/Time: Dec 31, 2023 11:06 AM Reporting Lab: [facility] [place] [address] [address] Performing Lab: [facility] [place] [facility] [address] [facility] [address] [facility] [place] [facility] URINALYS IS CLEAN CATCH PROTEIN [MASS/VOLU ME] IN URINE BY TEST STRIP NEGATIVE mg/dL 01/04 Specimen Type: URINE Comment: If Glucose = >500 and Ketones are positive, please alert the Physician. Ordering Provider: FLAQUITO PÉREZ Report Released Date/Time: Dec 31, 2023 11:06 AM Reporting Lab: [facility] [place] [facility] [address] [facility] [address] Performing Lab: [facility] [place] [facility] [address] [facility] [address] [facility] [place] [facility] URINALYS IS CLEAN CATCH NITRITE [PRESENCE] IN URINE NEGATIVE mg/dL 01/04 Specimen Type: URINE Comment: If Glucose = >500 and Ketones are positive, please alert the Physician. Ordering Provider: FLAQUITO PÉREZ Report Released Date/Time: Dec 31, 2023 11:06 AM Reporting Lab: [facility] [place] [facility] [address] [facility] [address] Performing Lab: [facility] [place] [facility] [address] [facility] [address] [facility] [place] [facility] URINALYS IS CLEAN CATCH BILIRUBIN. TOTAL [PRESENCE] IN URINE NEGATIVE mg/dL 01/04 Specimen Type: URINE Comment: If Glucose = >500 and Ketones are positive, please alert the Physician. Ordering Provider: FLAQUITO PÉREZ Report Released Date/Time: Dec 31, 2023 11:06 AM Reporting Lab: [facility] [place] [facility] [address] [facility] [address] Performing Lab: [facility] [place] [facility] [address] [facility] [address] [facility] [place] [facility] URINALYS IS CLEAN CATCH SPECIFIC GRAVITY OF URINE BY REFRACTOME TRY 1.023 1.016 - 1.022 01/04 H Specimen Type: URINE Comment: If Glucose = >500 and Ketones are positive, please alert the Physician. Ordering Provider: FLAQUITO PÉREZ Report Released Date/Time: Dec 31, 2023 11:06 AM Reporting Lab: [facility] [place] [facility] [address] [facility] [address] Performing Lab: [facility] [place] [facility] [address] [facility] [address] [facility] [place] [facility] URINALYS IS CLEAN CATCH PH OF URINE BY TEST STRIP 6.5 5.0 - 9.0 01/04 Specimen Type: URINE Comment: If Glucose = >500 and Ketones are positive, please alert the Physician. Ordering Provider: FLAQUITO PÉREZ Report Released Date/Time: Dec 31, 2023 11:06 AM Reporting Lab: [facility] [place] [facility] [address] [facility] [address] Performing Lab: [facility] [place] [facility] [address] [facility] [address] [facility] [place] [facility] URINALYS IS CLEAN CATCH UROBILINOG EN [MASS/VOLU ME] IN URINE BY TEST STRIP <2.0mg/d L <2.0 - 2.0 01/04 Specimen Type: URINE Comment: If Glucose = >500 and Ketones are positive, please alert the Physician. Ordering Provider: FLAQUITO PÉREZ Report Released Date/Time: Dec 31, 2023 11:06 AM Reporting Lab: [facility] [place] [facility] [address] [facility] [address] Performing Lab: [facility] [address] [facility] [address] [facility]USE [facility] URINALYS IS CLEAN CATCH LEUKOCYTE ESTERASE [PRESENCE] IN URINE BY TEST STRIP NEGATIVE 01/04 Specimen Type: URINE Comment: If Glucose = >500 and Ketones are positive, please alert the Physician. Ordering Provider: FLAQUITO PÉREZ Report Released Date/Time: Dec 31, 2023 11:06 AM Reporting Lab: [facility] [place] [facility] [address] [facility] [address] Performing Lab: [facility] [address] [address] [facility] [place] [facility] BASIC METABOLI C PANEL (fasting ) UREA NITROGEN [MASS/VOLU ME] IN SERUM OR PLASMA 21 mg/dL 7 - 25 01/04 Specimen Type: SERUM No comment entered. Ordering Provider: FLAQUITO PÉREZ Report Released Date/Time: Dec 31, 2023 11:06 AM Reporting Lab: [facility] [place] [facility] [address] [facility] [address] Performing Lab: [facility] [facility] [address] [facility] [address] [facility] [place] [facility] BASIC METABOLI C PANEL (fasting ) GLUCOSE [MASS/VOLU ME] IN SERUM OR PLASMA 116 mg/dL 65 - 100 01/04 H Specimen Type: SERUM No comment entered. Ordering Provider: FLAQUITO PÉREZ Report Released Date/Time: Dec 31, 2023 11:06 AM Reporting Lab: [facility] [place] [facility] [address] [facility] [address] Performing Lab: [facility] [place] [facility] [address] [facility] [address] [facility] [place] [facility] BASIC METABOLI C PANEL (fasting ) SODIUM [MOLES/VOL UME] IN SERUM OR PLASMA 139 mmol/L 135 - 145 01/04 Specimen Type: SERUM No comment entered. Ordering Provider: FLAQUITO PÉREZ Report Released Date/Time: Dec 31, 2023 11:06 AM Reporting Lab: [facility] [facility] [address] [facility] [address] Performing Lab: [facility] [facility] [address] [facility] [address] [facility] [place] [facility] BASIC METABOLI C PANEL (fasting ) POTASSIUM [MOLES/VOL UME] IN SERUM OR PLASMA 4.3 mmol/L 3.5 - 5.0 01/04 Specimen Type: SERUM No comment entered. Ordering Provider: FLAQUITO PÉREZ Report Released Date/Time: Dec 31, 2023 11:06 AM Reporting Lab: [facility] [facility] [address] [facility] [address] Performing Lab: [facility] [facility] [address] [facility] [address] [facility] [place] [facility] BASIC METABOLI C PANEL (fasting ) CHLORIDE [MOLES/VOL UME] IN SERUM OR PLASMA 104 mmol/L 100 - 110 01/04 Specimen Type: SERUM No comment entered. Ordering Provider: FLAQUITO PÉREZ Report Released Date/Time: Dec 31, 2023 11:06 AM Reporting Lab: [facility] [address] [address] Performing Lab: [address] [address] [facility] BASIC METABOLI C PANEL (fasting ) CARBON DIOXIDE, TOTAL [MOLES/VOL UME] IN SERUM OR PLASMA 24 meq/L 20 - 30 01/04 Specimen Type: SERUM No comment entered. Ordering Provider: FLAQUITO PÉREZ Report Released Date/Time: Dec 31, 2023 11:06 AM Reporting Lab: [address] [address] Performing Lab: [address] [address] [facility] BASIC METABOLI C PANEL (fasting ) CREATININE [MASS/VOLU ME] IN SERUM OR PLASMA 0.90 mg/dL 0.50 - 1.40 01/04 Specimen Type: SERUM No comment entered. Ordering Provider: FLAQUITO PÉREZ Report Released Date/Time: Dec 31, 2023 11:06 AM Reporting Lab: [address] [address] Performing Lab: [address] [address] [facility] BASIC METABOLI C PANEL (fasting ) GLOMERULAR FILTRATION RATE/1.73 SQ M.PREDICTE D [VOLUME RATE/AREA] IN SERUM, PLASMA OR BLOOD BY CREATININE -BASED FORMULA (CKD-EPI 2020) 88 mL/min 60 01/04 Specimen Type: SERUM No comment entered. Ordering Provider: FLAQUITO PÉREZ Report Released Date/Time: Dec 31, 2023 11:06 AM Reporting Lab: [address] [address] Performing Lab: [facility] [place] [facility] [address] [facility] [address] [facility] Vital Signs Combined list of inpatient and outpatient Vital Signs from Department of Defense and Veterans Affairs, ranging from 12 months to all on record, depending upon the facility. Vital Sign Value Date Comments Source SYSTOLIC BLOOD PRESSURE 110 05/30/20 24 15:22:17 [facility] [place] DIASTOLIC BLOOD PRESSURE 72 024 15:22:17 [facility] [place] PULSE OXIMETRY 96 05/30/2024 15:22:17 [facility] WEIGHT 184.5 05/30/2024 15:22:17 [facility] [...] 01/11/2024 10:00:31 [facility] [place] [facility] Encounters Combined list of: 1) Encounters from Department of Veterans Affairs facilities going back up to thelast 18 months. 2) Encounters from the Department of [employer] facilities going back up to 280 months. 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
TIANA DOW ISTINE F 04/21 [facility]89[facility]7[facility] QNHP OL DIG ASSMT&MGMT 5-10 [id number] Diagnos is: ICD-10- CM R63.4 Abnorma l weight loss
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
CECILIA PÉREZ RD D 04/23 [facility] En[facility] [id number] 04/26 [facility] En[facility] [id number] 04/28 [facility] En[facility] [id number] 04/29 [facility] En[facility] [id number] 04/30 [facility] En[facility] [id number] 04/30 [facility]P OL DIG ASSMT&MGMT 11-20 [id number] Diagnos is: ICD-10- CM 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
LEONCIOMONALISA JALYN Angel 05/05 [facility] En[facility] [id number] 05/20 [facility] [id number] 05/20 [facility] [id number] 05/24 [facility] [id number] 05/31 [facility] [id number] 06/01 [facility] [id number] 06/14 [facility] [id number] 06/17 [facility] [id number] 06/21 [facility] OFFICE O/P EST SF 10-19 MIN [id number] Diagnos is: ICD-10- CM 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
[address]ILIA P[address]REZ RD 09/19 /2023 [facility] [id number] 06/24 [facility] En[facility] [id number] 06/29 [facility] [place]MMUNIZATI [place] ADMIN [id number] Diagnos is: ICD-10- CM Z23 Encount er for immuniz ation<b r/> CECILIA P[address]REZ RD 06/29 [facility] En[facility] [id number] 07/05 [facility] [id number] 07/08 [facility] [id number] 07/13 [facility] [id number] 07/15 [facility] [id number] 07/19 [facility] [id number] 07/22 [facility] OFF[facility] O/P EST LOW 20-29 MIN [id number] Diagnos is: ICD-10- CM R73.01 Impaire d fasting glucose
Britta VIDALES AVID 07/27 [facility] [id number] 07/28 [facility] [id number] 08/02 [facility] Out[facility] Encounter [id number] 08/06 [facility] DIABETIC CUSTOM MOLDED SHOE [id number] Diagnos is: ICD-10- CM Q66.70 Congeni kriss pes cavus, unspeci fied foot
DOMINIC HARMON 08/16 [facility] Out[facility] Encounter [id number] 08/17 [facility] Out[facility] Encounter [id number] 08/30 [facility] Out[facility] Encounter [id number] 09/02 [facility] Out[facility] Encounter [id number] 09/08 [facility] Out[facility] Encounter [id number] 09/29 [facility] Outpatient Encounter [id number] 10/07 [facility] OFFICE O/P EST SF 10 MIN [id number] Diagnos is: ICD-10- CM 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
CECILIA PÉREZ RD D 10/08 [facility] Out[facility] Encounter [id number] 10/11 [facility] Out[facility] Encounter [id number] 10/14 [facility] Out[facility] Encounter [id number] 11/10 [facility] Out[facility] Encounter [id number] 11/16 [facility] Out[facility] Encounter [id number] 11/23 [facility] Out[facility] Encounter [id number] 11/25 [facility] Out[facility] Encounter [id number] 12/06 [facility] Out[facility] Encounter [id number] 12/15 [facility] Out[facility] Encounter [id number] 12/16 [facility] Out[facility] Encounter [id number] 12/20 [facility] Out[facility] Encounter [id number] 01/02 [facility] Out[facility] Encounter [id number] 01/10 [facility] OFFICE O/P EST LOW 20 MIN [id number] Diagnos is: ICD-10- CM 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
CECILIA PÉREZ RD D 01/10 [facility] COMPRE OPH EXAM EST PT 1/> [id number] Diagnos is: ICD-10- CM H25.813 Combine d forms of age-rel ated catarac t, bilater al
MERHAR,KALEB H B 01/16 [facility] FIT SPECTACLES MONOFOCAL [id number] Diagnos is: ICD-10- CM Z46.0 Encount er for fit/adj st of spectac les and contact lenses< br/> MERHAR,KLAEB H B 01/16 [facility] Outpatient Encounter [id number] 02/01 [facility] Out[facility] Encounter [id number] 02/09 [facility] Outpatient Encounter [id number] 03/06 [facility] Out[facility] Encounter [id number] 03/19 [facility] Outpatient Encounter [id number] 03/27 [facility] Out[facility] Encounter [id number] 04/05 [facility] Out[facility] Encounter [id number] 04/13 [facility] Out[facility] Encounter [id number] 05/08 [facility] Out[facility]counter [id number] 05/16 [facility] Out[facility] Encounter [id number] 05/18 [facility] Out[facility]counter [id number]/24 [facility] OFFICE O/P EST SF 10 MIN [id number] Diagnos is: ICD-10- CM 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
CECILIA PÉREZ RD 05/30 [facility] Out[facility] Encounter [id number] 06/08 [facility] Outpatient Encounter [id number] 06/15 [facility] Out[facility] Encounter [id number] 1.06/19 [facility] Out[facility] Encounter [id number] [facility] Outpatient Encounter [id number] 06/29 [facility] OFFICE O/P EST LOW 20 MIN [id number] Diagnos is: ICD-10- CM Q66.70 Congeni kriss pes cavus, unspeci fied foot
FOSTER,NICHOLAS RLES D 07/27 [facility] Out[facility] Encounter [id number] 07/31 [facility] Outpatient Encounter [id number] 08/04 [facility] DIABETIC CUSTOM MOLDED SHOE [id number] Diagnos is: ICD-10- CM Q66.70 Congeni kriss pes cavus, unspeci fied foot
KATHARINE GREWAL TT LINO 08/16 [facility] Out[facility] Encounter [id number] 08/16 [facility] Outpatient Encounter [id number] 08/30 [facility] Outpatient Encounter [id number] 09/26 [facility] [place] [place] Social History Combined list of available smoking, tobacco, and other social history from Department of Defense and Veterans Affairs facilities. Social History Type Response Date Comment Sourc e Tobacco smoking status NHIS VA-TOBACCO NEVER USED 01/11/2024 [facility] History of tobacco use CO-TOBACCO NEVER USED 01/27/2023 [facility] History of tobacco use VA-TOBACCO NEVER USED 01/06/2022 [facility] History of tobacco use VA-TOBACCO NEVER USED 12/31/2020 [facility] [place] [facility] History of tobacco use CO-TOBACCO NEVER USED 12/27/2019 [facility] [place] [facility] History of tobacco use CO-TOBACCO NEVER USED 06/30/2018 [facility] [place] [facility] History of tobacco use LIFETIME NON-TOBACCO USER 12/23/2017 [facility] [place] [facility] History of tobacco use LIFETIME NON-TOBACCO USER 12/22/2016 [facility] [place] [facility] History of tobacco use LIFETIME NON-TOBACCO USER 12/24/2015 [facility] [place] [facility] History of tobacco use LIFETIME NON-SMOKER 06/19/2004 [facility] [place] [facility] History of tobacco use LIFETIME NON-SMOKER 06/19/2004 [facility] [place] [facility] Plan of Care List of future care activities from Department of Veterans Affairs facilities. Additional future care activities may be listed in the Assessment and Plan section. Date/Time Care Activity Care Activity Detail Facili ty 10/18/2024 AMBULATORY - MEDICINE AMBULATORY - MEDICI NE [facility] [place] [facility] 02/14/2025 AMBULATORY - MEDICINE AMBULATORY - MEDICI NE [facility] [place] [facility] 10/03/2024 Laboratory - Repair Cameraman ry Order URIC ACID BLOOD (SST-SERUM) [facility] 10/03/2024 Laboratory - Repair Cameraman ry Order CBC AND DIFF (AUTO) BLOOD (LAV-BLOOD) [facility] 10/03/2024 Laboratory - Repair Cameraman ry Order BASIC METABOLIC PANEL (fasting) BLOOD (SST-SERUM) [facility] 10/03/2024 Laboratory - Repair Cameraman ry Order URINALYSIS CLEAN CATCH URINE [facility] 10/03/2024 Laboratory - Repair Cameraman ry Order LIVER FUNCTION BLOOD (SST-SERUM) [facility] 10/03/2024 Laboratory - Repair Cameraman ry Order LIPID PANEL FASTING BLOOD (SST-SERUM) [facility] 10/03/2024 Laboratory - Repair Cameraman ry Order TSH BLOOD (SST-SERUM) [facility] Advance Directives List of completed, amended, or rescinded Advance Directives on record at [facility] facilities. An actual copy of the Directive is not included. Date Advance Directive Provider Source 05/20/2006 ADVANCE DIRECTIVE MARINA FAJARDO [facility]
--- OUTSIDE RECORDS SUMMARY | 2024-10-17 12:42 | XMS_ITS | Encounter Summary ---
Author Name [facility] [place] Address [address] [place] [address] Care Team Providers Care Food And Beverage Associate Name Role Phone OLIVA PEGUERO Primary Care [...] TOMER ROBLES OF [facility] 3[employer] Systems GE Apr 03, 2009 [id number] [phone] BLANCHE, JANET SPOUSE BCBS [facility] DOWNTOWNO BLUE* Apr 03, 2009 [id number] [phone] BLANCHE, FRANCIS SPOUSE BCBS [facility] Taquilla GE Apr 03, 2009 [id number] FRANCIS MANCIA SPOUSE [employer] ([id number]) PRESCRIPT ION L4TA* Apr 03, 2009 L4TA [id number] FRANCIS MANCIA SPOUSE [employer] ([id number]) PRESCRIPT ION L4TA* Apr 03, 2009 L4TA [id number] FRANCIS MANCIA SPOUSE [employer] ([id number]) PRESCRIPT ION Apr 03, 2009 L4TA [id number] [id number] FRANCIS MANCIA SPOUSE MEDICARE (WNR) MEDICARE (M) PART B Jun 04, 2020 PART B [id number] [phone] RAÚL MANCIA PATIENT MEDICARE (WNR) MEDICARE (M) PART A Oct 04, 2006 PART A [id number] RAÚL MANCIA PATIENT MEDICARE (WNR) MEDICARE (M) PART A Oct 04, 2006 PART A [id number] [phone] RAÚL MANCIA PATIENT Selected Encounter This section includes the information on record at [place] for the Encounter. Date/Time Encounter Type Encounter Description Reason Pro vider Source Jun 29, 2024 01:57 PM Outpatient Encounter PRIMARY CARE/MEDICINE IHE Encounter Template Text not used by [place] Plan of Treatment: Future Appointments (+ 6 months) and Future Tests (+/- 45 days) The Plan of Treatment section includes future care activities for the patient from all [place] treatmentfacilities. This section includes future appointments and future orders which are active, pending or scheduled. Future Appointments This section includes appointments that were scheduled to occur 6 months from the date of the Encounter, up to a maximum of 20 appointments. The data comes from all [place] treatment facilities. Appointment Date/Time Appointment Type Appointme nt Facility Name Jul 27, 2024 08:00 AM AMBULATORY - MEDICINE [facility] [place] [facility] Aug 16, 2024 10:00 AM AMBULATORY MEDICINE [facility] [place] [facility] Aug 18, 2024 09:15 AM AMBULATORY MEDICINE [facility] [place] [facility] Oct 18, 2024 10:00 AM [facility] Active, Pending, and Scheduled Orders This section includes a listing of several types of active, pending, and scheduled orders, including clinic medications orders, diagnostic test orders, procedure orders and consult orders; where the start date of the order is 45 days before the date of the Encounter or 45 days after the date of theEncounter. The data comes from all [place] treatment facilities. Test Date/Time Test Type Test Details Facility Name Aug 04, 2024 10:27 PM Consult Order COMMUNITY CARE-PULMONARY Cons Principal Web Developer's Choice [facility] [place] [facility] Social History: Smoking Status (Most current) and Tobacco Use (All prior to encounter date) This section includes the most current, and the historical, smoking and tobacco- related health factors from the [place] facility where the Encounter took place. Current Smoking Status This section includes the most current smoking, or tobacco-related health factor, from the [place] facility where the Encounter took place. Date/Time Current Smoking Status Comment Facil ity Jan 11, 2024 10:00 AM VA-TOBACCO NEVER USED [place] [facility] [facility] Tobacco Use History This section includes a history of the smoking, or tobacco-related health factors, that were collected on or before the date of the Encounter. The data comes from the [place] facility where the Encounter took place. Date/Time Smoking Status/Tobacco Use Comment F acility Jan 27, 2023 10:00 AM VA-TOBACCO NEVER USED [facility] [place] [facility] Jan 06, 2022 09:00 AM VA-TOBACCO NEVER USED [facility] [place] [facility] Dec 31, 2020 08:00 AM VA-TOBACCO NEVER USED [facility] [place] [facility] Dec 27, 2019 09:48 AM VA-TOBACCO NEVER USED [facility] [place] [facility] Jun 30, 2018 08:41 AM VA-TOBACCO NEVER USED [facility] [place] [facility] Dec 23, 2017 07:46 AM LIFETIME NON-TOBACCO USER [facility] [place] [facility] Dec 22, 2016 08:06 AM LIFETIME NON-TOBACCO USER [facility] [place] [facility] Dec 24, 2015 08:36 AM LIFETIME NON-TOBACCO USER [facility] [place] [facility] Jun 19, 2004 01:52 PM LIFETIME NON-SMOKER [facility] [place] [facility] Jun 19, 2004 01:52 PM LIFETIME NON-TOBACCO USER [facility] [place] [facility] Jun 19, 2004 01:34 PM LIFETIME NON-SMOKER [facility] [place] [facility] Jun 19, 2004 01:34 PM LIFETIME NON-TOBACCO USER [facility] Advance Directives: All historical and current Section Date Range: From patient's date of to the date document was created. This section includes ALL of a patient's completed or amended [place] Advance and Rescinded Directives. The entries below indicate that a directive exists for the patient, but an actual copy is not included with this document. The data comes from all [place] facilities. Date Advance Directives Provider Source May 20, 2006 ADVANCE DIRECTIVE MARINA FAJARDO [facility] Encounter Notes: All associated encounter notes [...] 06-19-[address] 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
--- OUTSIDE RECORDS SUMMARY | 2024-10-17 12:43 | XMS_ITS | Encounter Summary ---
Author Name [facility] [place] Address [address] [place] [address] Care Team Providers Care Long Filler Cigar Roller Machine Name Role Phone OLIVA PÉREZ Primary Care [...] Policy Root TOMER BOWMANBS OF [facility] Squid Facil GE Apr 03, 2009 [id number] FRANCIS MANCIA SPOUSE BC[facility]UE* Apr 03, 2009 [id number] BLANCHE, JANET SPOUSE BCBS [facility] [employer] GE Apr 03, 2009 [id number] [phone] FRANCIS MANCIA SPOUSE [employer] ([id number]) PRESCRIPT ION L4TA* Apr 03, 2009 L4TA [id number] FRANCIS MANCIA SPOUSE [employer] ([id number]) PRESCRIPT ION L4TA* Apr 03, 2009 L4TA [id number] FRANCIS MANCIA SPOUSE [employer] ([id number]) PRESCRIPT ION Apr 03, 2009 L4TA [id number] FRANCIS MANCIA SPOUSE MEDICARE (WNR) MEDICARE (M) PART B Jun 04, 2020 PART B [id number] [phone] RAÚL MANCIA PATIENT MEDICARE (WNR) MEDICARE (M) PART A Oct 04, 2006 PART A [id number] RAÚL MANCIA PATIENT MEDICARE (WNR) MEDICARE (M) PART A Oct 04, 2006 PART A [id number] RAÚL MANCIA PATIENT Selected Encounter This section includes the information on record at [place] for the Encounter. Date/Time Encounter Type Encounter Description Reason Pro vider Source Jul 31, 2024 12:00 AM Outpatient Encounter COMMUNITY CARE [...] 20 appointments. The data comes from all [facility]. Appointment Date/Time Appointment Type Appointme nt Facility Name Aug 16, 2024 10:00 AM [facility] Aug 18, 2024 09:15 AM [facility] [place] [facility] Oct 18, 2024 10:00 AM AMBULATORY MEDICINE [facility] Active, Pending, and Scheduled Orders This section includes a listing of several types of active, pending, and scheduled orders, including clinic medications orders, diagnostic test orders, procedure orders and consult orders; where the start date of the order is 45 days before the date of the Encounter or 45 days after the date of theEncounter. The data comes from all [place] treatment [facility]. Test Date/Time Test Type Test Details Facility Name Aug 04, 2024 10:27 PM Consult Order COMMUNITY CARE-PULMONARY Cons Customer Service Advocate's Choice [facility] [place] [facility] Social History: Smoking Status (Most [...] VA-TOBACCO NEVER USED [facility] [place] [facility] Tobacco Use History This section includes a history of the smoking, or tobacco-related health factors, that were collected on or before the date of the Encounter. The data comes from the [place] facility where the Encounter took place. Date/Time Smoking Status/Tobacco Use Comment F acclint Jan 27, 2023 10:00 AM VA-TOBACCO NEVER USED [facility] [place] [facility] Jan 06, 2022 09:00 AM VA-TOBACCO NEVER USED [facility] [place] [facility] Dec 31, 2020 08:00 AM VA-TOBACCO NEVER USED [facility] [place] [facility] Dec 27, 2019 09:48 AM VA-TOBACCO NEVER USED [facility] [place] [facility] Jun 30, 2018 08:41 AM VA-TOBACCO NEVER USED [facility] [place] [facility] Dec 23, 2017 07:46 AM LIFETIME NON-TOBACCO USER [facility] [place] [facility] Dec 22, 2016 08:06 AM LIFETIME NON-TOBACCO USER [facility] [place] [facility] Dec 24, 2015 08:36 AM LIFETIME NON-TOBACCO USER [facility] [place] [facility] Jun 19, 2004 01:52 PM LIFETIME NON-SMOKER [facility] [place] [facility] Jun 19, 2004 01:52 PM LIFETIME NON-TOBACCO USER [facility] [place] [facility] Jun 19, 2004 01:34 PM LIFETIME NON-SMOKER [facility] [place] [facility] Jun 19, 2004 01:34 PM LIFETIME NON-TOBACCO USER [facility] [place] [facility] Advance Directives: All historical and [...] May 20, 2006 ADVANCE DIRECTIVE MARINA FAJARDO [facility] Encounter Notes: All associated encounter notes This section contains the clinical notes associated to the Encounter. Date/Time Encounter Note(s) Provider Source Jul 31, 2024 12:00 AM NONVA CONSULT: LOCAL TITLE: COMMUNITY CARE-CONSULT RESULT NOTE STANDARD TITLE: NONVA CONSULT DATE OF NOTE: JUL 31, 2024 ENTRY DATE: SEP 21, 2024@10:57:43 AUTHOR: JULY GRIMES EXP COSIGNER: URGENCY: STATUS: COMPLETED VistA Imaging - Scanned Document SCANNED DOCUMENT SIGNATURE NOT REQUIRED Electronically Filed: 09/21/2024 by: JULY MONTEZ [facility]
--- OUTSIDE RECORDS SUMMARY | 2024-10-17 12:43 | XMS_ITS ---
Author Organization [facility] Address [address] [place] [id number] Care Team Providers Care Visual Educator Name Role Phone Vincent Peguero MD Primary Care Provider Unavailab Alexy Vazquez Unavailable [phone] REASON FOR VISIT ANEMIA, IRON DEFICIENCY, ANEMIA Encounters Encounter Location Date Provider Diagnosis [facility] [address] [place] [address] 06/03/2023 Alexy Fitzgerald PLAN OF TREATMENT No Information
--- OUTSIDE RECORDS SUMMARY | 2024-10-17 12:43 | XMS_ITS | Encounter Summary ---
Author Name [facility] [place] [facility] [place] Address [address] [place] [address] Care Team Providers Care Check Pilot Name Role Phone OLIVA PEGUERO Primary Care [...] to Policy Root [facility] One-Song GE Apr 03, 2009 [id number] BLANCHEFRANCIS HERNANDEZ SPOUSE [facility]* Apr 03, 2009 [id number] [phone] BLANCHE, JANET SPOUSE BCBS [facility] Compliance 11 GE Apr 03, 2009 [id number] FRANCIS MANCIA SPOUSE [employer] ([id number]) PRESCRIPT ION L4TA* Apr 03, 2009 [id number] [id number] FRANCIS MANCIA [employer] ([id number]) PRESCRIPT ION L4TA* Apr 03, 2009 L4TA [id number] FRANCIS MANCIA SPOUSE [employer] ([id number]) PRESCRIPT ION Apr 03, 2009 L4TA [id number] FRANCIS MANCIA SPOUSE MEDICARE (WNR) MEDICARE (M) PART B Jun 04, 2020 PART B [id number] RAÚL MANCIA PATIENT MEDICARE (WNR) MEDICARE (M) PART A Oct 04, 2006 PART A [id number] RAÚL MANCIA PATIENT MEDICARE (WNR) MEDICARE (M) PART A Oct 04, 2006 PART A [id number] [phone] RAÚL MANCIA PATIENT Selected Encounter This section includes the information on record at [place] for the Encounter. Date/Time Encounter Type Encounter Description Reason Pro vider Source Sep 26, 2024 04:24 PM Outpatient Encounter PRIMARY CARE/MEDICINE IHE Encounter Template Text not used by [place] Plan of Treatment: Future Appointments (+ 6 months) and Future Tests (+/- 45 days) The Plan of Treatment section includes future care activities for the patient [facility] [place] [facility] This section includes future appointments and future orders which are active, pending or scheduled. Future Appointments This section includes appointments that were scheduled to occur 6 months from the date of the Encounter, up to a maximum of 20 appointments. The data comes from all [place] treatment facilities. Appointment Date/Time Appointment Type Appointme nt Facility Name Oct 18, 2024 10:00 AM AMBULATORY - MEDICINE [facility] February 14, 2025 08:00 AM AMBULATORY - MEDICINE [facility] Active, Pending, and Scheduled Orders This section includes a listing of several types of active, pending, and scheduled orders, including clinic medications orders, diagnostic test orders, procedure orders and consult orders; where the start date of the order is 45 days before the date of the Encounter or 45 days after the date of theEncounter. The data comes from all [place] treatment facilities. Test Date/Time Test Type Test Details Facility Name Oct 03, 2024 12:00 AM Laboratory - Chemistry Order URINALYSIS CLEAN CATCH URINE [facility] [place] [facility] Oct 03, 2024 12:00 AM Laboratory - Chemistry Order CBC AND DIFF (AUTO) BLOOD (LAV-BLOOD) [facility] [place] [facility] Oct 03, 2024 12:00 AM Laboratory - Chemistry Order URIC ACID BLOOD (SST-SERUM) [facility] [place] [facility] Oct 03, 2024 12:00 AM Laboratory - Chemistry Order LIVER FUNCTION BLOOD (SST-SERUM) [facility] [place] [facility] Oct 03, 2024 12:00 AM Laboratory - Chemistry Order LIPID PANEL FASTING BLOOD (SST-SERUM) [facility] [place] [facility] Oct 03, 2024 12:00 AM Laboratory - Chemistry Order TSH BLOOD (SST-SERUM) [facility] [place] [facility] Oct 03, 2024 12:00 AM Laboratory - Chemistry Order BASIC METABOLIC PANEL (fasting) BLOOD (SST-SERUM) [facility] Social History: Smoking Status (Most [...] Current Smoking Status Comment Ronald vaz Jan 11, 2024 10:00 AM VA-TOBACCO NEVER USED [place] [facility] [place] [facility] Tobacco Use History This section includes a history of the smoking, or tobacco-related health factors, that were collected on or before the date of the Encounter. The data comes from the [place] facility where the Encounter took place. Date/Time Smoking Status/Tobacco Use Comment F acility Jan 27, 2023 10:00 AM VA-TOBACCO NEVER USED [facility] [place] [facility] Jan 06, 2022 09:00 AM VA-TOBACCO NEVER USED [facility] [place] [facility] Dec 31, 2020 08:00 AM VA-TOBACCO NEVER USED [facility] [place] [facility] Dec 27, 2019 09:48 AM VA-TOBACCO NEVER USED [facility] [place] [facility] Jun 30, 2018 08:41 AM VA-TOBACCO NEVER USED [facility] [place] [facility] Dec 23, 2017 07:46 AM LIFETIME NON-TOBACCO USER [facility] [place] [facility] Dec 22, 2016 08:06 AM LIFETIME NON-TOBACCO USER [facility] [place] [facility] Dec 24, 2015 08:36 AM LIFETIME NON-TOBACCO USER [facility] [place] [facility] Jun 19, 2004 01:52 PM LIFETIME NON-SMOKER [facility] [place] [facility] Jun 19, 2004 01:52 PM LIFETIME NON-TOBACCO USER [facility] [place] [facility] Jun 19, 2004 01:34 PM LIFETIME NON-SMOKER [facility] [place] [facility] Jun 19, 2004 01:34 PM LIFETIME NON-TOBACCO USER [facility] [place] [facility] Advance Directives: All historical and [...] May 20, 2006 ADVANCE DIRECTIVE MARINA FAJARDO [place] [facility] Encounter Notes: All associated encounter notes This section contains the clinical notes associated to the Encounter. Date/Time Encounter Note(s) Provider Source Sep 26, 2024 04:25 PM NONVA CONSULT: LOCAL TITLE: MD/OUTSIDE CONSULT REPORT SUMMARY STANDARD TITLE: NONVA CONSULT DATE OF NOTE: SEP 26, 2024@16:25 ENTRY DATE: SEP 26, 2024@16:25:53 AUTHOR: OLIVA PEGUERO EXP COSIGNER: URGENCY: STATUS: COMPLETED [facility] 09-07-2024 CT chest without contrast Worsening metastatic disease 09-21-[address] Beach Plan: Lung biopsy /es/ Oliva Peguero MD Staff Physician Signed: 09/26/2024 16:26 OLIVA PEGUERO [facility] [place] [facility] Sep 26, 2024 04:24 PM NONVA CONSULT: LOCAL TITLE: MD/OUTSIDE CONSULT REPORT SUMMARY STANDARD TITLE: NONVA CONSULT DATE OF NOTE: SEP 26, 2024@16:24 ENTRY DATE: SEP 26, 2024@16:24:51 AUTHOR: OLIVA PEGUERO EXP COSIGNER: URGENCY: STATUS: COMPLETED 09-11-[address] Guzman [facility] Hematology oncology Chief complaint: Esophageal cancer Treated with radiation and chemotherapy Plan: Continue chemotherapy Follow-up 6 weeks /delores/ Oliva Peguero MD Staff Physician Signed: 09/26/2024 16:25 OLIVA PEGUERO [place] [facility]
--- OUTSIDE RECORDS SUMMARY | 2024-10-17 12:44 | XMS_ITS | Patient Health Record ---
Author Organization [facility] Address [address] [place] [id number] Care Team Providers Care Senior Director Name Role Phone Sudhir OTTO, Vincent Primary Care Provider UnavailAlexy Rodriguez Unavailable [phone] REASON FOR REFERRAL No Information SOCIAL HISTORY Sex Assigned At : Social History Observation Description Sex Assigned At Unknown PROBLEMS Problem Type ICD Code Onset Dates Problem Status W/U Status Risk SNOMED Code Notes Problem Diverticulitis (K57.92) Active confirmed [id number] PLAN OF TREATMENT No Information Insurance Providers Payer Name Payer Address Payer Phone Subscriber Number Group Number Insured Name Patient Relationship to Insured Coverage Start Date Coverage End Date [facility] [employer] [address] [place] [address] [id number] RAÚL MANCIA Self - patient is the insured
== END ==
LOC: HO.CARD 10:47
PROVIDERS: PCP Internal Medicine; Visit Provider Hospitalist
DX: I31.39 Other pericardial effusion (noninflammatory) (principal)
CPT/HCPCS: 93306; Q9957

== ENCOUNTER → 2024-10-17 10:50 | Outpatient (BNV) | payer OTHER, SELFPAY | PROVIDERS: PCP Internal Medicine; Visit Provider Internal Medicine | DX: I34.0 Nonrheumatic mitral (valve) insufficiency (principal); I31.39 Other pericardial effusion (noninflammatory); I51.89 Other ill-defined heart diseases | CPT/HCPCS: 93306 ==

== ENCOUNTER 2024-10-19 09:26 | Outpatient (AMB) | payer OTHER, SELFPAY ==
[2024-10-19 09:37] VITALS: BP 90/58; PULSE 107; O2SAT 95
--- NOTE | 2024-10-19 09:37 | MHC.OFFVIS ---
Vital Signs 10/19/24 09:37 Weight 169 lb BP 90/58 L Blood Pressure Location Lt brachial Position Sitting Pulse 107 H Pulse Source Pulse Oximeter Pulse Oximetry (%) 95 Oxygen Delivery Method Room Air Intake Visit Reasons: Pulmonary Nodule/CT Chest follow up Allergies No Known Allergies Allergy (Verified 10/19/24 09:42) Medication List - Last Reconciled 10/19/24 by Luisa Mcclure LPN allopurinol 200 mg PO DAILY mometasone 100 mcg/actuation (Asmanex HFA) 1 inh inhalation BID 30 days simvastatin 40 mg PO BEDTIME HPI Comments Details: The patient is a 79-year-old gentleman presenting with abnormal CT scan of the chest. The patient was diagnosed with esophageal cancer during endoscopy was found to have an obstruction due to a masslike density. The patient was then referred to Oncology where he received chemo and also radiation. Now on immune therapy. The patient did not have surgery for the esophageal cancer. He still being followed by thoracic surgery. In the meantime he had a CT scan of the chest back in July 2023 which I personally reviewed demonstrating normal lung parenchyma. No evidence of any airspace disease. Patient ultimately had a repeat CT scan of the chest November 16 2023 which I also personally reviewed. Now it demonstrates what appears to be an airspace disease in the left lower lobe area. The area is very suspicious for an infectious process. He also has some mediastinal lymphadenopathy appreciated. In addition to that there was a 6 mm pulmonary nodule in the right lower lobe. The patient was treated with Augmentin and also doxycycline. The patient really was not symptomatic. Currently he feels well. Denies any chest pain or cough or shortness breath. We did talk about the findings in the importance of following up with a repeat CT scan to make sure that there is resolution of the airspace disease and also to make sure the nodular density is also followed. The patient is agreeable to having another CT scan in the next 6 weeks. If the patient has any worsening symptoms prior to that he will call for an earlier assessment. 06/15/2024 the patient is here for a pulmonary follow-up visit. The patient has been feeling well from a respiratory status. He did have a CT scan back in 03/23/2024 which I personally reviewed with him. Was concerning with new areas of consolidation and ground-glass nodular densities. The patient had did have a left lower lobe consolidation that had clear. We did recommend bronchoscopy but the patient opted not to have it. Also to note the lymphadenopathy has gotten a little bit worse on the CT scan. The patient continues on immune therapy. He understands the indeed these changes may indeed be related to the immune therapy as inflammatory reactions. He is willing to start Asmanex as an inhaled corticosteroid. I did tell him as small dose just to help him with his lungs and minimize any systemic manifestations. The patient will continue with his current immune therapy in the meantime. Will plan to continue on the inhaler for a couple months and plan to repeat the CT scan a couple months. If the patient develops any worsening symptoms prior to that he will call for an earlier on suctioning. 09/21/2024 the patient is here for a pulmonary follow-up visit. The patient overall has been doing okay. Denies any shortness of breath or cough or hemoptysis. He has continue the Keytruda infusions as per Oncology. He had a repeat CT scan of the chest because of the abnormal findings on his lost 1. The patient opted on not having any diagnostic interventions at that time. He was started on Asmanex because of the concerns of some degree of pneumonitis and consolidation. He also completed a course of antibiotics. Now we did review his repeat CT scan. Appears that the airspace disease significantly improved. Although the lymphadenopathy has worsened a little bit the patient now has significant amount of peripheral based nodular densities in hematogenous distribution concerning for metastatic disease. I explained to the patient my concerns. Good give him a copy of the results. The patient needs to have a diagnostic intervention to see if this is the same process, esophageal cancer or if is a different malignant process potentially. I did offer him a bronchoscopy with sampling of the lymph nodes in addition to the lungs with the patient would like to avoid anesthesia. The other option would be a CT-guided biopsy. The patient is willing to do this procedure. Therefore will go ahead and request a CT-guided lung biopsy of his right pulmonary nodule ALEJA. The patient will follow-up with oncology soon. He also may benefit from a PET scan. Also to note, on the CT scan there is a moderate-sized pericardial effusion. The patient denies any chest pains or dizziness. He knows that if his symptoms worsen or develops any concerning chest pains or shortness of breath or any other concerning symptoms he is to seek medical advice. In the meantime will request an urgent echocardiogram to address the pericardial effusion. 10/19/2024 the patient is here for a pulmonary follow-up visit. The patient overall has been doing okay. We did talk about his findings on the CT scan also the biopsy. We did confirm that he is scheduled for November 14 at 08:30 in the morning. The patient has information his will taken to the appointment. Breathing [place] she is doing well the Asmanex. Therefore will continue that for now. In addition to that he did undergo an echocardiogram which we did review. Seems like he has a moderate pericardial effusion. This may be related to the cancer. So therefore will go ahead and request a consultation with Cardiology. At this point no evidence of any tamponade but indeed it may get worse. [facility] Medical History (Updated 09/21/24 @ 09:16 by Dale Beach MD) Pulmonary nodules Lymphadenopathy, mediastinal Pneumonia Pulmonary nodule Esophageal cancer Hx of fracture of finger Hx of gout History of high cholesterol Hx of essential hypertension Surgical History (Updated 12/16/23 @ 12:26 by Dale Beach MD) History of nasal surgery History of tonsillectomy and adenoidectomy Hx of facial fracture repair Hx of shoulder surgery Hx of foot surgery Hx of colonoscopy Hx of arthroscopic knee surgery Social History Household Members: Spouse Housing: House Do you presently have visiting nurse or other home services: No Alcohol intake: current Alcohol intake frequency: holidays/special occasions only Alcohol type: beer Patient Tobacco Use Status: Never used Tobacco service: Yes Current occupational status: retired Review of Systems Const Denies fever(s) Eyes Reports as per HPI ENT Denies nasal congestion Card Denies chest pain Resp Denies cough and Denies wheezing GI Reports as per HPI Musc Reports no additional complaints Skin/Breast Denies rash Neuro Reports no additional complaints Aller/Immun Denies wheezing Physical Exam Vital Signs: Last Vital Signs Pulse 107 H 10/19/24 09:37 BP 90/58 L 10/19/24 09:37 Pulse Ox 95 10/19/24 09:37 Oxygen Delivery Method Room Air 10/19/24 09:37 Const General: comfortable HEENT Head: Yes normocephalic Neck Neck: Yes supple Chest Chest palpation & inspection: normal inspection of the chest Resp Effort & Inspection: normal respiratory effort Auscultation: no crackles and diminished lung sounds Cardio Heart sounds: S1 normal heart sound present and S2 normal heart sound present GI Palpation (GI): Soft to palpation Skin General skin exam: no rashes or lesions noted Extrem General: Yes no clubbing, cyanosis or edema Assessment & Plan Assessment & Plan (1) Pneumonia: Code(s): J18.9 - Pneumonia, unspecified organism Category: Medical Qualifiers: Pneumonia type: due to unspecified organism Laterality: left Lung location: lower lobe of lung Qualified Code(s): J18.9 - Pneumonia, unspecified organism (2) Pulmonary nodule: Code(s): R91.1 - Solitary pulmonary nodule Category: Medical (3) Esophageal cancer: Code(s): C15.9 - Malignant neoplasm of esophagus, unspecified Category: Surgical Qualifiers: Malignant neoplasm of esophagus location: unspecified location Qualified Code(s): C15.9 - Malignant neoplasm of esophagus, unspecified (4) Lymphadenopathy, mediastinal: Code(s): R59.0 - Localized enlarged lymph nodes Category: Medical (5) Pulmonary nodules: Code(s): R91.8 - Other nonspecific abnormal finding of lung field Category: Medical (6) Pericardial effusion: Code(s): I31.39 - Other pericardial effusion (noninflammatory) Category: Medical Plan Asmanex HFA awaiting urgent CT guided right sided lung biopsy, scheduled for 11/14/2024 Cardiology referral for the pericardial effusion, no evidence of tamponade F/U 6-8 weeks Medications: Refilled mometasone 100 mcg/actuation (Asmanex HFA) 1 inh inhalation BID 13 grams 11RF 30 days R91.1 - Solitary pulmonary nodule Coding Level of Care Code Est Pt Level 4 (29294) Complex EM visit Add On G2211 Diagnoses Pneumonia of left lower lobe due to infectious organism J18.9 Pneumonia type: due to unspecified organism Laterality: left Lung location: lower lobe of lung Pulmonary nodule R91.1 Malignant neoplasm of esophagus, unspecified location C15.9 Malignant neoplasm of esophagus location: unspecified location Lymphadenopathy, mediastinal R59.0 Pulmonary nodules R91.8 Pericardial effusion I31.39 Time Spent (min) 16
== END 2024-10-19 10:11 | disposition home or self-care (01) ==
PROVIDERS: PCP Internal Medicine; Visit Provider Hospitalist
DX: J18.9 Pneumonia, unspecified organism (principal); R91.1 Solitary pulmonary nodule; C15.9 Malignant neoplasm of esophagus, unspecified; R59.0 Localized enlarged lymph nodes; R91.8 Other nonspecific abnormal finding of lung field; I31.39 Other pericardial effusion (noninflammatory)
CPT/HCPCS: 99214; G2211

== ENCOUNTER → 2024-10-19 09:26 | Outpatient (BNVA) | payer OTHER, SELFPAY | PROVIDERS: PCP Internal Medicine; Visit Provider Hospitalist | DX: R91.1 Solitary pulmonary nodule (principal); R91.8 Other nonspecific abnormal finding of lung field; J18.9 Pneumonia, unspecified organism; C15.9 Malignant neoplasm of esophagus, unspecified; R59.0 Localized enlarged lymph nodes; I31.39 Other pericardial effusion (noninflammatory) | CPT/HCPCS: 99212 ==

== ENCOUNTER 2024-11-14 16:49 | Emergency (ER) | payer OTHER, SELFPAY ==
[2024-11-14] VITALS (16 sets, daily range): BP systolic 70–105; BP diastolic 30–70; PULSE 104–130; RESP 12–30; TEMP 36.6–37.9; O2SAT 95–97; BMI 20.1
--- NOTE | ~2024-11-14 | CT_ITS ---
CLINICAL HISTORY: sepsis CT chest with contrast Comparison: CT/MT/SR - CT CHEST WO IV CON - 09/07/24 07:36 EST Findings: Mild cardiomegaly with small pericardial effusion. Diffuse esophageal mural thickening, nonspecific. Left supraclavicular, mediastinal and bulky tldfp-esedyrj-bjzq-left hilar lymphadenopathy. There is encasement of the right peribronchial vasculature with narrowing of the pulmonary arteries. Morphology appears lobulated/masslike. There are additional ill-defined consolidations with scattered pulmonary nodules, for example an isolated spiculated nodule in the right middle lobe measuring 1.7 cm. Hrefw-errtrpk-lxlr-left small bilateral effusions. Free air and free fluid, please see CT abdomen pelvis report. Thoracic diffuse idiopathic skeletal hyperostosis. Osteopenia. IMPRESSION: 1. Ill-defined masslike consolidations in the right hilum, middle/lower lobes bulky diffuse lymphadenopathy. Suspect malignancy /metastasis with superimposed aspiration or pneumonia. Clinical correlation with follow-up advised. These findings are progressed from prior. 2. Jioxa-suawxfc-ceei-left small bilateral effusions. This document has been electronically signed by: Rakan Wood MD on 11/14/2024 22:12:51
--- NOTE | ~2024-11-14 | CT_ITS ---
CLINICAL HISTORY: ams CT head without contrast Comparison: None Findings: Scattered subcortical and periventricular hypoattenuation, likely in keeping with chronic small vessel ischemic disease. Global parenchymal volume loss with disproportionate prominence of the ventricles and CSF spaces, can be seen in the setting of normal pressure hydrocephalus and should be correlated clinically. No acute territorial infarction, intracranial hemorrhage or midline shift. There is no sinus or mastoid fluid. Chronic appearing nasal bone fractures. Tortuosity of the optic nerves, nonspecific. No skull fracture. IMPRESSION: 1. No acute intracranial hemorrhage or territorial infarction. 2. Additional findings as described. This document has been electronically signed by: Rakan Wood MD on 11/14/2024 22:13:57
--- NOTE | ~2024-11-14 | XR_ITS ---
CLINICAL HISTORY: sepsis 1 view chest x-ray Comparison: CT/MD/SR - CT CHEST W IV CON - 03/06/24 09:10 EDT Findings: There are bilateral lower lobe airspace opacities. No pneumothorax or large pleural effusion. There is large amount of free air beneath the diaphragm. Cardiomediastinal silhouette is accentuated by portable technique and suboptimal inspiratory effort. Chronic rotator cuff tear changes in the right shoulder. IMPRESSION: 1. Large amount of free intraperitoneal air. In the absence of recent surgery, perforated viscus is the primary diagnostic consideration. 2. Hypoventilation with resultant bibasilar atelectasis. Infiltrates are included in the differential. This document has been electronically signed by: Leslie Tinajero DO on 11/14/2024 18:18:20
--- NOTE | ~2024-11-14 | CT_ITS ---
CLINICAL HISTORY: ?perforated viscous CT abdomen and pelvis with contrast Comparison: CR - XR CHEST 1V - 11/14/24 17:[address]/REG/ME/SR - CT ABDOMEN PELVIS W IV CON - 03/15/23 16:29 EDT Findings: Diffuse esophageal mural thickening, nonspecific. Ill-defined sjfxp-jegdqih-ubwh-left bilateral patchy consolidations small right and trace left bilateral effusions. Please see same day CT chest report. Small pericardial effusion. Mild cardiomegaly. Hepatic steatosis noted. Bilateral hypodense and intermediate dense renal cysts. This may be further evaluated with ultrasound. Nonobstructive bilateral subcentimeter renal calculi measuring no more than 3 mm. Small/moderate volume ascites with large volume pneumoperitoneum consistent with perforated viscus. Distended stomach with heterogeneous intraluminal material. Possible intraluminal filling defects along the posterior gastric fundus and/or intermixed material, nonspecific. Colonic diverticulosis with prominent mural thickening and peridiverticular inflammatory changes of the sigmoid colon in the left lower quadrant, with regional areas of free air, may reflect a site of perforation. Underlying colonic lesion can not be excluded. There is proximal significant colonic distention with air-fluid levels and mural thickening likely reflecting a component of ileus. Large stool burden in the cecum. No small bowel obstruction. Periumbilical hernia containing tiny foci of air. Fat containing inguinal hernias. Retroperitoneal lymphadenopathy for example a right periaortic node measuring 1.8 cm series 13, image 47. 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 Distal branches appear patent. Prostatomegaly noted. Large rectal stool burden. Appendix not visualized. Mild peritoneal thickening with enhancement, likely related to peritonitis. Osteopenia with diffuse multilevel spondylosis. Diffuse atheromatous plaque disease throughout the aorta and branch vessels, without aneurysmal dilatation. IMPRESSION: 1. Findings consistent with perforated viscus, possibly from sigmoid diverticulitis/colitis with large volume pneumoperitoneum, free fluid and peritonitis. Recommend surgical consult. 2. Ill-defined odtjy-wvqmuyg-cxyz-left bilateral patchy consolidations with small right and trace left bilateral effusions. Aspiration or pneumonia suspected. 3. Retroperitoneal lymphadenopathy. 4. Additional findings as described. This document has been electronically signed by: Rakan Wood MD on 11/14/2024 22:08:15
--- NOTE | 2024-11-14 17:01 | ECG_ITS ---
Test Reason : TACHYCARDIA Blood Pressure : */* mmHG Vent. Rate : 128 BPM Atrial Rate : 128 BPM P-R Int : 124 ms QRS Dur : 96 ms QT Int : 320 ms P-R-T Axes : 53 -36 77 degrees QTcB Int : 467 ms Sinus tachycardia Left axis deviation Minimal voltage criteria for LVH, may be normal variant ( [place] product ) Possible Inferior infarct , age undetermined Abnormal ECG When compared with ECG of 13-Mar-2023 15:28, Vent. rate has increased by 42 bpm Borderline criteria for Inferior infarct are now Present T wave amplitude has increased in Anterior leads T wave inversion now evident in Lateral leads Referred By: Asa Grijalva Electronically Signed By: FRED CARPENTER MD
--- NOTE | 2024-11-14 17:08 | ED_ITS ---
HPI - General Adult General Chief complaint: General Medical Stated complaint: sepsis alert, tachyachardic 140 Time Seen by Provider: 11/14/24 17:00 Source: patient and EMS Mode of arrival: EMS Limitations: no limitations History of Present Illness HPI narrative: This is a 79-year-old man with a past medical history of anemia, esophageal cancer status post chemo and radiation now on immune therapy, pericardial effusion who is brought in by EMS for evaluation. EMS states noting hypotension and tachycardia and en route to the hospital and reports providing 25 mg IV Cardizem for tachycardia. Patient reports feeling sick for the last approximate week. Patient states decreased appetite and nausea. He reports associated vomiting. He states no fever. He states dry cough. He states no chest pain or dyspnea. He states no abdominal pain. He states no urinary symptoms. He states no changes to bowel habits. Related Data Home Medications ?Medication ?Instructions ?Recorded ?Confirmed allopurinol 200 mg tablet 200 mg PO DAILY 03/13/23 10/19/24 simvastatin 40 mg tablet 40 mg PO BEDTIME 03/13/23 10/19/24 Previous Rx's ?Medication ?Instructions ?Recorded mometasone 100 mcg/actuation HFA 1 inh inhalation BID 30 days #13 10/19/24 aerosol inhaler (Asmanex HFA) grams Allergies Allergy/AdvReac Type Severity Reaction Status Date / Time No Known Allergies Allergy Verified 11/14/24 17:09 Review of Systems 2 Review of Systems: ROS as per HPI [facility] Past Medical History Medical History (Updated 11/14/24 @ 20:11 by Asa Grijalva MD) Pulmonary nodules Lymphadenopathy, mediastinal Pneumonia Pulmonary nodule Esophageal cancer Hx of fracture of finger Hx of gout History of high cholesterol Hx of essential hypertension Surgical History (Updated 12/16/23 @ 12:26 by Dale Beach MD) History of nasal surgery History of tonsillectomy and adenoidectomy Hx of facial fracture repair Hx of shoulder surgery Hx of foot surgery Hx of colonoscopy Hx of arthroscopic knee surgery Social History Social History Household Members: Spouse Housing: House Do you presently have visiting nurse or other home services: No Alcohol intake: current Alcohol intake frequency: holidays/special occasions only Alcohol type: beer Patient Tobacco Use Status: Never used Tobacco Smoked in Last 30 Days: No Use of substances other than those prescribed or required for medical reasons: No Advance Directives: No Advance Directives Information Provided: No service: Yes Current occupational status: retired Physical Exam ED Vital Signs: Vital Signs - 24 hr 11/14/24 17:06 11/14/24 17:11 11/14/24 17:52 Temperature 97.9 F Pulse Rate 129 H 129 H 123 H Respiratory Rate 30 H 30 H 26 H Blood Pressure 83/53 L 81/45 L 97/64 Pulse Oximetry 96 97 96 Oxygen Delivery Method Room Air Room Air Room Air 11/14/24 18:04 11/14/24 18:10 11/14/24 18:38 Temperature 100.2 F Pulse Rate 120 H 120 H Respiratory Rate 28 H 30 H Blood Pressure 97/65 101/70 Pulse Oximetry 96 Oxygen Delivery Method Room Air 11/14/24 19:14 11/14/24 19:38 11/14/24 19:43 Temperature 98.3 F Pulse Rate 113 H 111 H 113 H Respiratory Rate 30 H Blood Pressure 85/57 L 81/52 L 80/47 L Pulse Oximetry 95 Oxygen Delivery Method Room Air 11/14/24 19:48 11/14/24 19:53 11/14/24 19:59 Temperature Pulse Rate 110 H 112 H 104 H Respiratory Rate Blood Pressure 72/52 L 77/53 L 100/69 Pulse Oximetry Oxygen Delivery Method 11/14/24 20:00 11/14/24 20:22 Temperature 97.8 F Pulse Rate 106 H Respiratory Rate 30 H Blood Pressure 105/69 Pulse Oximetry 95 Oxygen Delivery Method Room Air BMI result Body Mass Index 20.1 Gen: NAD, awake, alert, answering questions and following commands, states it is October 2023 HEENT: NCAT, EOMI, normal conjunctiva CV: Tachycardic rate, regular rhythm, no JVD, no murmurs appreciated Pulm: CTAB, +tachypnea GI: +diffuse involuntary guarding Neuro: Grossly non focal Medications Administered Generic Name Dose Route Start Last Admin Trade Name Freq PRN Reason Stop Dose Admin Norepinephrine Bitartrate 8 mg in 250 mls @ 0 mls/hr 11/14/24 19:30 11/14/24 19:59 Levophed IVCONT 0.2 mcg/kg/min .Q0M TYE 25.2 mls/hr Titration Protocol Per Protocol Discontinued Medications Generic Name Dose Route Start Last Admin Trade Name Freq PRN Reason Stop Dose Admin Diatrizoate Meglum/Diatrizoate Sod 30 ml 11/14/24 20:20 11/14/24 20:21 Diatrizoate Meglumine, Sodium 30 Ml Solution PO 11/14/24 20:21 30 ml ONCE ONE Administration Cefepime HCl 2 gm/ Sodium 50 mls @ 100 mls/hr 11/14/24 17:13 11/14/24 18:46 Chloride IV 11/14/24 17:42 Infused ONCE ONE Infusion Doxycycline Hyclate 100 mg/ 250 mls @ 166.67 mls/hr 11/14/24 17:13 11/14/24 21:07 Sodium Chloride IV 11/14/24 18:42 Infused ONCE ONE Infusion Lactated Ringer's 1,000 mls @ 999 mls/hr 11/14/24 17:22 11/14/24 18:04 Lr IV 11/14/24 18:22 Infused .Q1H1M ONE Infusion Metronidazole 500 mg in 100 mls @ 100 mls/hr 11/14/24 18:24 11/14/24 19:12 Flagyl IV 11/14/24 19:23 100 mls/hr ONCE ONE Administration Acetaminophen 1,000 mg in 100 mls @ 400 mls/hr 11/14/24 18:34 11/14/24 19:06 Ofirmev IV 11/14/24 18:48 Infused ONCE ONE Infusion Iohexol 85 ml 11/14/24 20:18 11/14/24 20:18 Iohexol 350 Mg/Ml 100 Ml Infus..Btl IV 11/14/24 20:19 85 ml ONCE ONE Administration Ondansetron HCl 4 mg 11/14/24 17:51 11/14/24 18:05 Ondansetron Hcl 4 Mg/2 Ml Vial IVPUSH 11/14/24 17:52 4 mg ONCE ONE Administration Medical Decision Making Medical Decision Making MDM Narrative: Differential diagnosis includes, but is not limited to viral URI, acute kidney injury, lactic acidosis, electrolyte derangement, septic shock, cardiac tamponade, perforated hollow viscus, esophageal perforation, diverticulitis, intra-abdominal abscess. 1701 - patient arrives hypertensive and tachycardic meeting SIRS criteria and so sepsis treatment is initiated. Patient has received a sudden 750 cc IV fluids prior to arrival by EMS. We have completed the 1 L bag EMS initiated. Patient is provided additional 1 L IV LR for completion of 30 cc/kilos bolus as per sepsis protocol. Given history of cough and URI symptoms, patient is treated empirically with cefepime and doxycycline given the suspicion for respiratory source of infection. Patient is also provided Zofran for nausea. 181 - x-ray obtained as below concerning for perforated viscus. We will add on metronidazole given concern for intra-abdominal source of infection. I initially considered cardiac tamponade as etiology of the patient's shock state, but there is no JVD on exam. I did discuss patient's case and management with product/industry consultant print manager, Dr. Vasquez, who stated that we did not have the ability to obtain stat echocardiogram for further evaluation. However, given chest x- ray findings and physical exam this is a lower clinical suspicion at this time. 183 - patient initially afebrile vital oral temperature. Rectal temperature borderline 100.2? F. regardless, patient is provided 1 g IV Tylenol. Given rectal temperature, suspicion for septic shock is raised. I have disussed patient's case and management with product/industry consultant General Surgery, Dr. Wilcox, who is aware of the patient and we are awaiting CT imaging. 191 - initially, patient had good response cc per kilos fluid bolus, but patient's map decreases below 65 mm Hg and thus will initiate peripheral norepinephrine GTT. 2001 - Dr. Wilcox at the bedside. I have discussed with wire charger here in the ED who states that there are no ICU beds available this evening. I have discussed the patient's case and management with [facility] as well as [facility] level of care given the patient's complexity and lack of ICU beds here at this facility, but had been declined transfer due to capacity. I have discussed the patient's case and management with [place] for transfer line and requested transfer to high level of care. I am awaiting return call. Care is transitioned to the oncoming physician, Dr. Geronimo, pending CT results and disposition. I independently reviewed and interpreted the patient's labs, EKG, chest x-ray and viral testing as below. Critical Care Time: A total of 120 minutes spent in direct patient care with coordinating critical resuscitation, procedures, reviewing records, discussing with consultants, reviewing labs, and/or managing patient. Admission/Observation Consideration of admission/observation: Escalation of care including admission/observation considered Consult Healthcare Provider Management of the patient was discussed with: Electric Scoop Operator As above Lab Data MDM Lab Attestation statement: I reviewed the patient's lab results. I independently reviewed and interpreted the patient's labs, which are notable for leukocytosis with a white blood cell count of 14.8, 31% band neutrophil lactic acid 7.8 while hyperbilirubinemia with total bilirubin 1.4 and direct bilirubin 0.8 (likely due to sepsis), patient is negative for COVID-19, influenza and RSV. 11/14/24 17:14 11/14/24 18:17 Labs: Lab Results 11/14/24 11/14/24 11/14/24 Range/Units 17:14 17:46 18:17 WBC 14.8 H (4.8-10.8) X10*3/uL RBC 5.76 (4.60-5.80) X10*6/uL Hgb 15.1 (14.0-18.0) g/dl Hct 47.6 (42.0-52.0) % MCV 82.6 (80.0-98.0) fL MCH 26.2 L (27.0-33.0) pg MCHC 31.7 (31.0-36.0) g/dl RDW 18.8 H (11.0-16.0) % Plt Count 341 D (160-400) X10*3/uL MPV 11.1 (9.4-12.4) fL Immature Gran % (Auto) Cancelled Neut % (Auto) Cancelled Lymph % (Auto) Cancelled [place] % (Auto) Cancelled Eos % (Auto) Cancelled Baso % (Auto) Cancelled Lymph # (Auto) Cancelled [place] # (Auto) Cancelled Eos # (Auto) Cancelled Baso # (Auto) Cancelled Abs Immat Gran (auto) Cancelled Absolute Neuts (auto) Cancelled Absolute Nucleated RBC 0.000 (0.0-0.012) X10*3/uL Nucleated RBC % (auto) 0.0 (0.0-0.2) /100WBC Neutrophils % (Manual) 63 (45-73) % Band Neutrophils % 31 H (3-5) % Lymphocytes % (Manual) 3 L (20-40) % Monocytes % (Manual) 2 (2-11) % Metamyelocytes % 1 % Abs Neuts (Manual) 13.9 H (2.0-8.3) X10*3/uL Lymphocytes # (Manual) 0.4 L (1.2-4.9) X10*3/uL Monocytes # (Manual) 0.3 (0.1-1.2) X10*3/uL Metamyelocytes # 0.1 X10*3/uL Toxic Vacuolation PRESENT Platelet Estimate NORMAL (NORMAL) Plt Morphology Comment NORMAL RBC Morphology NORMAL Smear Tech's Comments MANUAL DIFF PT 12.5 H (10.9-12.4) SEC INR 1.1 (0.9-1.1) APTT 25.6 L (26.0-36.8) SEC Sodium 138 (135-145) mmol/L Potassium 4.6 (3.3-5.1) mmol/L Chloride 106 (96-108) mmol/L Carbon Dioxide 20 L (22-29) mmol/L Anion Gap 17 (12-20) BUN 24 H (9-16) mg/dL Creatinine 0.91 (0.5-1.4) mg/dL Estim Creat Clear Calc 63.5 Estimated GFR > 60 Random Glucose 118 H (60-115) mg/dL Lactic Acid 7.8 H* (0.5-2.0) mmol/L Lactic Acid F/U @ 2Hr (0.5-2.0) mmol/L Calcium 8.6 (8.4-10.2) mg/dL Total Bilirubin 1.4 H (0.0-1.0) mg/dL Direct Bilirubin 0.8 H (0.0-0.5) mg/dL AST 27 (5-37) U/L ALT 28 (0-40) U/L Alkaline Phosphatase 199 H (39-117) U/L Total Protein 6.1 L (6.5-8.0) g/dL Albumin 2.8 L (3.5-5.0) g/dL Lipase 12 (8-78) U/L Influenza Type A (PCR) NEGATIVE (Negative) Influenza Type B (PCR) NEGATIVE (Negative) RSV RNA Qual (PCR) NEGATIVE (Negative) SARS-CoV-2 RNA (RT-PCR) NEGATIVE (Negative) Blood Type Antibody Screen 11/14/24 Range/Units 19:48 WBC (4.8-10.8) X10*3/uL RBC (4.60-5.80) X10*6/uL Hgb (14.0-18.0) g/dl Hct (42.0-52.0) % MCV (80.0-98.0) fL MCH (27.0-33.0) pg MCHC (31.0-36.0) g/dl RDW (11.0-16.0) % Plt Count (160-400) X10*3/uL MPV (9.4-12.4) fL Immature Gran % (Auto) Neut % (Auto) Lymph % (Auto) [place] % (Auto) Eos % (Auto) Baso % (Auto) Lymph # (Auto) [place] # (Auto) Eos # (Auto) Baso # (Auto) Abs Immat Gran (auto) Absolute Neuts (auto) Absolute Nucleated RBC (0.0-0.012) X10*3/uL Nucleated RBC % (auto) (0.0-0.2) /100WBC Neutrophils % (Manual) (45-73) % Band Neutrophils % (3-5) % Lymphocytes % (Manual) (20-40) % Monocytes % (Manual) (2-11) % Metamyelocytes % % Abs Neuts (Manual) (2.0-8.3) X10*3/uL Lymphocytes # (Manual) (1.2-4.9) X10*3/uL Monocytes # (Manual) (0.1-1.2) X10*3/uL Metamyelocytes # X10*3/uL Toxic Vacuolation Platelet Estimate (NORMAL) Plt Morphology Comment RBC Morphology Smear Tech's Comments PT (10.9-12.4) SEC INR (0.9-1.1) APTT (26.0-36.8) SEC Sodium (135-145) mmol/L Potassium (3.3-5.1) mmol/L Chloride (96-108) mmol/L Carbon Dioxide (22-29) mmol/L Anion Gap (12-20) BUN (9-16) mg/dL Creatinine (0.5-1.4) mg/dL Estim Creat Clear Calc Estimated GFR Random Glucose (60-115) mg/dL Lactic Acid (0.5-2.0) mmol/L Lactic Acid F/U @ 2Hr 2.6 H* (0.5-2.0) mmol/L Calcium (8.4-10.2) mg/dL Total Bilirubin (0.0-1.0) mg/dL Direct Bilirubin (0.0-0.5) mg/dL AST (5-37) U/L ALT (0-40) U/L Alkaline Phosphatase (39-117) U/L Total Protein (6.5-8.0) g/dL Albumin (3.5-5.0) g/dL Lipase (8-78) U/L Influenza Type A (PCR) (Negative) Influenza Type B (PCR) (Negative) RSV RNA Qual (PCR) (Negative) SARS-CoV-2 RNA (RT-PCR) (Negative) Blood Type A Positive Antibody Screen NEGATIVE Independent Interpretation I performed an independent interpretation of an: EKG and Plain X-Ray Interpretation: My independently reviewed and interpreted the patient's EKG, which demonstrates a sinus tachycardia at 128 beats per minute, GA 128, QRS 96, QTC 467, no STEMI. I independently reviewed interpreted the patient's chest x-ray, which demonstrates question of bibasilar opacity right greater than left, positive free intraperitoneal air Radiology Impression Discussion of test interpretation with radiology: I have reviewed the radiologist's reading. Radiologist Impression: IMPRESSION: 1. Large amount of free intraperitoneal air. In the absence of recent surgery, perforated viscus is the primary diagnostic consideration. 2. Hypoventilation with resultant bibasilar atelectasis. Infiltrates are included in the differential. This document has been electronically signed by: Leslie Tinajero DO on 11/14/2024 18:18:20 Dictated By: Leslie Tinajero MD Signed By: <Electronically signed by Leslie Tinajero MD in [place]> 11/14/242 Discharge Plan Discharge Clinical Impression: Septic shock, Leukocytosis, Acidosis, lactic, Hyperbilirubinemia, Free intraperitoneal air Prescriptions: No Action simvastatin 40 mg Tablet 40 mg PO BEDTIME allopurinol 200 mg Tablet 200 mg PO DAILY Asmanex HFA 100 mcg/actuation HFA aerosol inhaler 1 inh inhalation BID 30 Days Qty: 13 11RF Print Language: Yoruba
[2024-11-14 17:22] LABS: Hematocrit 47.6 % (42.0-52.0); Hemoglobin 15.1 g/dl (14.0-18.0); Mean Corpuscular HGB Conc 31.7 g/dl (31.0-36.0); Mean Corpuscular Hemoglobin 26.2 pg (27.0-33.0); Mean Corpuscular Volume 82.6 fL (80.0-98.0); Mean Platelet Volume 11.1 fL (9.4-12.4); Platelet Count 341 X10*3/uL (160-400); Red Blood Count 5.76 X10*6/uL (4.60-5.80); Red Cell Distribution Width 18.8 % (11.0-16.0); White Blood Count 14.8 X10*3/uL (4.8-10.8)
[2024-11-14] MEDS: Lactated Ringers 1,000 ML 999 ML IV (17:30)
[2024-11-14 17:39] LABS: Lactic Acid 7.8 mmol/L (0.5-2.0)
--- NOTE | 2024-11-14 17:41 | PC.NURSE ---
Pt hard stick, multiple attempts by tech
--- NOTE | 2024-11-14 17:59 | PC.NURSE ---
Multiple techs trying to more blood work. ABX late due to this
[2024-11-14] MEDS: ondansetron HCL 4 MG/2 ML VIAL IVPUSH (18:05)
[2024-11-14 18:18] LABS: SLIDE REVIEW MANUAL DIFF
[2024-11-14] MEDS: cefEPime HCl 2 GM in 0.9 % Sodium Chloride 50 ML IV (18:18)
[2024-11-14] MEDS: Doxycycline Hyclate 100 MG in 0.9 % Sodium Chloride 250 ML 166.67 MG IV (18:19)
[2024-11-14 18:26] LABS: Neutrophils Percent Manual 63 % (45-73)
[2024-11-14 18:37] LABS: Influenza A PCR NEGATIVE (Negative); Influenza B PCR NEGATIVE (Negative); Resp Syncy Virus RNA Qual PCR NEGATIVE (Negative); SARS COV2 PCR INHOUSE NEGATIVE (Negative)
[2024-11-14 18:38] LABS: Alanine Aminotransferase 28 U/L (0-40); Albumin Level 2.8 g/dL (3.5-5.0); Alkaline Phosphatase 199 U/L (39-117); Anion Gap 17 (12-20); Aspartate Amino Transferase 27 U/L (5-37); Bilirubin Direct 0.8 mg/dL (0.0-0.5); Bilirubin Total 1.4 mg/dL (0.0-1.0); Blood Urea Nitrogen 24 mg/dL (9-16); Calcium 8.6 mg/dL (8.4-10.2); Carbon Dioxide 20 mmol/L (22-29); Chloride 106 mmol/L (96-108); Creatinine Clr Calc Pharmacy 63.5; Estimated Glomerular Filt Rate > 60; Glucose Random 118 mg/dL (60-115); Potassium 4.6 mmol/L (3.3-5.1); Sodium 138 mmol/L (135-145); Total Protein 6.1 g/dL (6.5-8.0)
[2024-11-14 18:39] LABS: Band Neutrophils Percent 31 % (3-5); Lymphocytes Percent Manual 3 % (20-40); Metamyelocytes Absolute 0.1 X10*3/uL; Metamyelocytes Percent 1 %; Neutrophils Absolute Manual 13.9 X10*3/uL (2.0-8.3)
[2024-11-14 18:40] LABS: Lymphocytes Absolute Manual 0.4 X10*3/uL (1.2-4.9); Monocytes Absolute Manual 0.3 X10*3/uL (0.1-1.2); Monocytes Percent Manual 2 % (2-11)
[2024-11-14 18:41] LABS: Platelet Estimate NORMAL (NORMAL); RBC Morphology NORMAL; Toxic Vacuolation PRESENT
[2024-11-14] MEDS: Acetaminophen 1,000 MG/100 ML PIGGYBACK 400 MG IV (18:41)
[2024-11-14 18:42] LABS: Platelet Morphology Comment NORMAL
[2024-11-14 18:52] LABS: Lipase 12 U/L (8-78)
[2024-11-14 19:05] LABS: INTERNATIONAL NORM RATIO 1.1 (0.9-1.1); Prothrombin Time 12.5 SEC (10.9-12.4)
--- NOTE | 2024-11-14 19:05 | PC.NURSE ---
Provider was aware of ongoing low BPs
[2024-11-14 19:08] LABS: Partial Thromboplastin Time 25.6 SEC (26.0-36.8)
[2024-11-14] MEDS: metroNIDAZOLE/NS 500 MG/100 ML PIGGYBACK 100 MG IV (19:12)
[2024-11-14 19:19] LABS: Reflex Lactate? Lactic Acid Added
[2024-11-14] MEDS: Norepinephrine Bitartrate/D5W 8 MG/250 ML PLAST..BAG 6.3 MG IVCONT (19:38)
--- NOTE | 2024-11-14 20:15 | PC.NURSE ---
This RN assumed pt care @ 1900. Pt a&ox4, no signs of distress. Pt denies pain but reports his abd is a 6/10 pain when palpated. Pts at bedside Pt with CT Plan of care ongoing.
[2024-11-14] MEDS: iohexoL 350 MG/ML 100 ML INFUS..BTL 85 ML IV (20:18)
[2024-11-14 20:19] LABS: ~Lactic Acid-LAB USE ONLY 2.6 mmol/L (0.5-2.0)
[2024-11-14] MEDS: Diatrizoate Meglumine, Sodium 30 ML SOLUTION PO (20:21)
--- NOTE | 2024-11-14 20:23 | PC.NURSE ---
Pt returned from CT plan of care ongoing.
[2024-11-14] MEDS: Lactated Ringers 1,000 ML 100 ML IVCONT (21:25)
--- NOTE | 2024-11-14 21:26 | PC.NURSE ---
Pt medicated per dec Pt a&ox4, no signs of distress Pts B/P / Plan of care ongoing.
[2024-11-14 21:50] LABS: Reflex Lactate? 2 Y
--- NOTE | 2024-11-14 22:44 | PC.NURSE ---
This RN called and spoke with Lila MONTILLA @ [facility] @ [phone].
== END 2024-11-14 22:45 | disposition short-term general hospital (02) ==
PROVIDERS: Emergency Provider Emergency Medicine; PCP Internal Medicine
DX: A41.9 Sepsis, unspecified organism (principal); R65.21 Severe sepsis with septic shock; J90 Pleural effusion, not elsewhere classified; I95.9 Hypotension, unspecified; R41.82 Altered mental status, unspecified; R11.2 Nausea with vomiting, unspecified; R05.9 Cough, unspecified; R10.2 Pelvic and perineal pain; E80.6 Other disorders of bilirubin metabolism; D72.829 Elevated white blood cell count, unspecified; Z79.899 Other long term (current) drug therapy; Z03.818 Encounter for observation for suspected exposure to other biological agents ruled out
CPT/HCPCS: 0241U; 36415; 70450; 71045; 71260; 74177; 80048; 80076; 83605; 83690; 85007; 85027; 85610; 85730; 86850; 86900; 86901; 87040; 93005; 96361; 96365; 96366; 96367; 96375; 99285; J0131; J0692; J1836; J2405; J7120; Q9967

== ENCOUNTER → 2024-11-14 17:01 | Outpatient (BNV) | payer OTHER, SELFPAY | PROVIDERS: Emergency Provider Emergency Medicine; PCP Internal Medicine; Visit Provider Internal Medicine Cardiovascular Disease | DX: R00.0 Tachycardia, unspecified (principal) | CPT/HCPCS: 93010 ==

== ENCOUNTER → 2024-11-14 17:07 | Outpatient (BNV) | payer OTHER, SELFPAY | PROVIDERS: Emergency Provider Emergency Medicine; PCP Internal Medicine; Visit Provider Radiology Diagnostic Radiology | DX: K57.20 Diverticulitis of large intestine with perforation and abscess without bleeding (principal); J18.9 Pneumonia, unspecified organism; J90 Pleural effusion, not elsewhere classified; G93.9 Disorder of brain, unspecified; A41.9 Sepsis, unspecified organism; K66.0 Peritoneal adhesions (postprocedural) (postinfection) | CPT/HCPCS: 70450; 71045; 71260; 74177 ==